=== PATIENT | female | born 1940 | race Caucasian/White ===

== ENCOUNTER → 2017-11-09 11:01 | Outpatient (CLI) | payer MEDICARE, SELFPAY ==
[2017-11-09 13:29] LABS: Protein, Urine (Random) 433.3 mg/dL (<11.9); Protein:Creat Ratio 4605 mg/g CRE (0-200)
== END ==
PROVIDERS: Family Provider Family Medicine; PCP Family Medicine; Visit Provider Internal Medicine Nephrology
DX: E11.22 Type 2 diabetes mellitus with diabetic chronic kidney disease (principal)
CPT/HCPCS: 82570; 84156

== ENCOUNTER → 2017-11-11 10:44 | Outpatient (CLI) | payer MEDICARE, SELFPAY ==
[2017-10-25 22:29] VITALS: BMI 26.5
--- NOTE | 2017-11-11 10:47 | US_ITS ---
US Kidney(s) complete (eg, kidneys T bladder) INDICATION: CKD stage 3 COMPARISON: CT April 2012 TECHNIQUE: Ultrasonographic grayscale and limited Doppler investigation of the retroperitoneum including kidneys and urinary bladder FINDINGS: The right kidney measures 10 x 4 x 5.4 cm with a cortical thickness of 1.6 cm. There is no evidence of hydronephrosis, cyst, or shadowing calculus. The left kidney measures 10.5 x 4.6 x 5.3 cm with a cortical thickness of 1.5 cm. There is no evidence of hydronephrosis, cyst, or shadowing calculus. Urinary bladder contains 24 mL at the time of the scan and appears otherwise unremarkable. US/Kidney and Bladder IMPRESSION: Negative renal ultrasound. at 0057 Reported and signed by: Niesha Lake MD Electronically Signed: Niesha Lake MD at 23:55 EST Tel , Service support ,
== END ==
PROVIDERS: Family Provider Family Medicine; PCP Family Medicine; Visit Provider Internal Medicine Nephrology
DX: N18.4 Chronic kidney disease, stage 4 (severe) (principal)
CPT/HCPCS: 76770

== ENCOUNTER → 2017-11-24 09:51 | Outpatient (CLI) | payer MEDICARE, SELFPAY ==
[2017-11-24 10:39] LABS: Hematocrit 35.1 % (37-47); Hemoglobin 11.6 g/dl (12.0-15.0); Mean Corpuscular Hgb 31.8 pg (27.0-32.0); Mean Corpuscular Volume 96.2 fL (81-99); Mean Platelet Vol. 9.7 fl (6.2-12.0); Platelet Count 273 K/mm3 (150-450); RBC Distribution Width CV 12.8 % (11.6-14.6); RBC Distribution Width SD 44.5 fl (35.1-43.9); Red Blood Count 3.65 M/mm3 (4.2-5.4); White Blood Count 7.5 K/mm3 (4.4-11.0)
[2017-11-24 10:51] LABS: Scan Indicated on CBC? Y/N NO
[2017-11-24 11:02] LABS: Albumin, Serum 3.3 g/dL (3.2-5.0); BUN 33 mg/dL (7-18); BUN/Creat Ratio 14.2 RATIO (10-20); Calcium,Total 8.7 mg/dL (8.5-10.1); Chloride 100 mmol/L (98-107); Creatinine, Serum 2.32 mg/dL (0.55-1.02); EST Glomerular Filtration Rate 22 mL/min (>60); Est Glom Filt Rate - Afr Amer 26 mL/min (>60); Glucose 168 mg/dL (74-106); Phosphorus 4.2 mg/dL (2.5-4.9); Potassium 4.3 mmol/L (3.5-5.1); Sodium Level 135 mmol/L (136-145); Uric Acid 8.7 mg/dL (2.6-6.0)
== END ==
PROVIDERS: Family Provider Family Medicine; PCP Family Medicine; Visit Provider Internal Medicine Nephrology
DX: N18.4 Chronic kidney disease, stage 4 (severe) (principal); E11.22 Type 2 diabetes mellitus with diabetic chronic kidney disease; R80.9 Proteinuria, unspecified; M10.9 Gout, unspecified
CPT/HCPCS: 36415; 80069; 83036; 84550; 85027; 86038; 86335

== ENCOUNTER → 2017-12-03 08:48 | Outpatient (CLI) | payer MEDICARE, SELFPAY ==
[2017-12-03 10:56] LABS: Anion Gap 11 (5-15); BUN 29 mg/dL (7-18); BUN/Creat Ratio 10.8 RATIO (10-20); Calcium,Total 8.7 mg/dL (8.5-10.1); Chloride 93 mmol/L (98-107); Creatinine, Serum 2.69 mg/dL (0.55-1.02); EST Glomerular Filtration Rate 18 mL/min (>60); Est Glom Filt Rate - Afr Amer 22 mL/min (>60); Glucose 410 mg/dL (74-106); Potassium 3.8 mmol/L (3.5-5.1); Sodium Level 131 mmol/L (136-145)
[2017-12-07 11:56] LABS: Anti-Nuclear Antibody Test Negative (.)
== END ==
PROVIDERS: Family Provider Family Medicine; PCP Family Medicine; Visit Provider Internal Medicine Nephrology
DX: N17.9 Acute kidney failure, unspecified (principal); N18.4 Chronic kidney disease, stage 4 (severe); E11.22 Type 2 diabetes mellitus with diabetic chronic kidney disease; R80.9 Proteinuria, unspecified; M10.9 Gout, unspecified
CPT/HCPCS: 36415; 80048; 86038

== ENCOUNTER 2017-12-05 22:11 | Emergency (ER) | payer MEDICARE, SELFPAY ==
[2017-12-05 22:15] VITALS: BP 221/106; PULSE 102; RESP 18; TEMP 37.1; O2SAT 97; BMI 25.3
[2017-12-05 22:36] LABS: Bedside Glucose > 500 mg/dL (70-110)
--- NOTE | 2017-12-05 22:39 | RAD_ITS ---
STUDY: X-RAY CHEST REASON FOR EXAM: Female, 77 years old. Hypertension TECHNIQUE: Frontal and lateral views of the chest. COMPARISON: 11/03/2013 FINDINGS: COPD without acute alveolar disease. There is no demonstrated pleural abnormality. Normal size heart. Normal mediastinum and will. Normal visualized pulmonary arteries. Normal visualized aortic arch and descending thoracic aorta. There are diffuse degenerative changes of the visualized thoracic spine. There is degenerative osteoarthritis of the bilateral shoulders. There is no demonstrated abnormality of the visualized soft tissue structures of the upper abdomen. RAD/Chest PA and Lateral IMPRESSION: COPD without acute alveolar disease. Electronically Signed: Иван Jarquin MD at 23:13 EST Tel , Service support ,
--- NOTE | 2017-12-05 22:44 | ED.VISSUMM ---
- ER Visit Summary Date of Service: 12/05/17 Chief Complaint: Blood sugar History of Present Illness: The patient is a 77 F who has a history of type 2 diabetes and chronic kidney disease, and due to worsening renal function, recently had her metformin switched to a new oral medication, and since then her blood sugars have been in the 500s, today they read high several times, and she felt like her blood pressure was high so she took it and her systolics were in the 180s, and 160s later. Here they are in the 200s. She states she knew her blood pressure was up because she felt like her heart was beating hard, although she was having no palpitations or racing or feelings of a dysrhythmia. She has had these symptoms in the past. Otherwise, her only other symptoms are some nausea off and on, polydipsia and polyuria, dry mouth, and she states she has a very mild sore throat because of her dry mouth. Physical Examination: Well-appearing in no acute distress. Blood pressure is in the 210 range, her other vital signs are normal. Lungs are clear to auscultation, heart is regular with no murmur. Abdomen soft nontender nondistended. No CVA tenderness. No JVD. No pedal edema or calf tenderness. Neck is supple. Alert and oriented ?3 with normal central and peripheral neurologic exams. Test Results: Stat blood sugar check is 598. Creatinine is 2.66, similar to a reading 2 days ago, with BUN in the 30s. Other than pseudohyponatremia due to her hyperglycemia, and glycosuria, her other labs and urinalysis are unremarkable. Chest x-ray shows COPD-like changes but otherwise nothing acute. Emergency Department Course and Treatment: Over several hours, patient was given 1 L of IV fluid and 1 dose of 14 units of fast acting subcutaneous insulin. Glucose was monitored as it gradually came down, at this time it is 265 and her blood pressure is 156 systolic. She feels better. I feel like she can be safely discharged home, advised to call her doctor tomorrow for medication/dosing recommendations, and she is following up with her emergency medicine nurse practitioner the day after tomorrow. She is comfortable with this plan. Treatment Plan: Continue medications as prescribed, calling her doctor tomorrow for further management of her medications Disposition: Discharge home Impression: Hyperglycemia due to type 2 diabetes and recent medication changes Chronic kidney disease Accelerated hypertension This note was generated with [employer] dictation software. It may contain incorrect words, spelling, and punctuation that were not noted in review of the chart prior to signing ED Disposition - Plan for ED Patient: Disposition: Home or Assisted Living Chief Complaint: Hyperglycemia Instructions: ED Hyperglycemia Diabetic Referrals: Taylor Alvarenga MD [Primary Care Provider] - (call Dr. Alvarenga and/or your Oxyacetylene Welder regarding medication management recommendations)
[2017-12-05 22:53] LABS: Absolute Lymphocyte Count 2.34 X10^3/ul (0.83-4.51); Absolute Neutrophil Count 4.6 X10^3/uL (2.0-7.7); Basophil# 0.02 X10^3/uL; Basophil% 0.3 % (0-1); Eosinophil# 0.11 X10^3/uL; Eosinophils% 1.4 % (0-5); Hematocrit 33.9 % (37-47); Hemoglobin 11.9 g/dl (12.0-15.0); Lymphocyte # 2.34 X10^3/ul (4.0); Lymphocyte % 30.5 % (19-41); Mean Corp Hgb Conc 35.1 g/gl (32-36); Mean Corpuscular Hgb 33.1 pg (27.0-32.0); Mean Corpuscular Volume 94.2 fL (81-99); Mean Platelet Vol. 10.2 fl (6.2-12.0); Monocyte# 0.56 X10^3/uL; Monocyte% 7.3 % (0-10); Neutrophil % 60.1 % (47-70); POSITIVE COUNT NO; POSITIVE DIFFERENTIAL NO; POSITIVE MORPHOLOGY NO; Platelet Count 201 K/mm3 (150-450); RBC Distribution Width CV 12.2 % (11.6-14.6); RBC Distribution Width SD 40.9 fl (35.1-43.9); White Blood Count 7.7 K/mm3 (4.4-11.0)
[2017-12-05] MEDS: Ondansetron 4 MG/2 ML Vial IV (23:06)
[2017-12-05 23:13] VITALS: BP 210/93; PULSE 95; RESP 16; O2SAT 96
[2017-12-05 23:14] LABS: Anion Gap 15 (5-15); BUN 35 mg/dL (7-18); BUN/Creat Ratio 13.2 RATIO (10-20); Calcium,Total 8.9 mg/dL (8.5-10.1); Chloride 90 mmol/L (98-107); Creatinine, Serum 2.66 mg/dL (0.55-1.02); EST Glomerular Filtration Rate 19 mL/min (>60); Est Glom Filt Rate - Afr Amer 22 mL/min (>60); Estimated Creatinine Clearance 14.45 ml/min; Glucose 559 mg/dL (74-106); Sodium Level 129 mmol/L (136-145)
--- NOTE | 2017-12-05 23:15 | ED.DCSUM_ITS ---
- ER Visit Summary Date of Service: 12/05/17 Chief Complaint: Blood sugar History of Present Illness: The patient is a 77 F who has a history of type 2 diabetes and chronic kidney disease, and due to worsening renal function, recently had her metformin switched to a new oral medication, and since then her blood sugars have been in the 500s, today they read high several times, and she felt like her blood pressure was high so she took it and her systolics were in the 180s, and 160s later. Here they are in the 200s. She states she knew her blood pressure was up because she felt like her heart was beating hard , although she was having no palpitations or racing or feelings of a dysrhythmia. She has had these symptoms in the past. Otherwise, her only other symptoms are some nausea off and on, polydipsia and polyuria, dry mouth, and she states she has a very mild sore throat because of her dry mouth. Physical Examination: Well-appearing in no acute distress. Blood pressure is in the 210 range, her other vital signs are normal. Lungs are clear to auscultation, heart is regular with no murmur. Abdomen soft nontender nondistended. No CVA tenderness. No JVD. No pedal edema or calf tenderness. Neck is supple. Alert and oriented ?3 with normal central and peripheral neurologic exams. Test Results: Stat blood sugar check is 598. Creatinine is 2.66, similar to a reading 2 days ago, with BUN in the 30s. Other than pseudohyponatremia due to her hyperglycemia, and glycosuria, her other labs and urinalysis are unremarkable. Chest x-ray shows COPD-like changes but otherwise nothing acute. Emergency Department Course and Treatment: Over several hours, patient was given 1 L of IV fluid and 1 dose of 14 units of fast acting subcutaneous insulin. Glucose was monitored as it gradually came down, at this time it is 265 and her blood pressure is 156 systolic. She feels better. I feel like she can be safely discharged home, advised to call her doctor tomorrow for medication/dosing recommendations, and she is following up with her lead sql developer the day after tomorrow. She is comfortable with this plan. Treatment Plan: Continue medications as prescribed, calling her doctor tomorrow for further management of her medications Disposition: Discharge home Impression: Hyperglycemia due to type 2 diabetes and recent medication changes Chronic kidney disease Accelerated hypertension This note was generated with [employer] dictation software. It may contain incorrect words, spelling, and punctuation that were not noted in review of the chart prior to signing ED Disposition - Plan for ED Patient: Disposition: Home or Assisted Living Chief Complaint: Hyperglycemia Instructions: ED Hyperglycemia Diabetic Referrals: Taylro Alvarenga MD [Primary Care Provider] - (call Dr. Alvarenga and/or your Health Information Technologist regarding medication management recommendations)
[2017-12-05 23:20] LABS: Bacteria 0 SEEN /hpf (None Seen); Mucous, Urine 0 SEEN /hpf (<or=2+); Red Blood Cells-Urine 0 SEEN /hpf (0-5); Squamous Epithelial Cells - UA 0 SEEN /hpf (5-10); White Blood Cells 0 SEEN /hpf (0-5)
[2017-12-05 23:23] LABS: Color, Urine Yellow (Yellow); Glucose, Dipstick 1000 mg/dl (Normal); Ketone-Dipstick Negative (Negative); Leukocyte Esterase-Dipstick 25 /ul (Negative); Nitrite-Dipstick Negative (Negative); Occult Blood-Urine Negative /ul (Negative); Protein-Dipstick 100 mg/dl (Negative); Urine Bilirubin Dipstick Negative (Negative); Urine Clarity Clear (Clear); Urine Urobilinogen Normal (Normal); Urine pH 6.5 (5.0 - 8.0)
[2017-12-05 23:56] VITALS: BP 189/96; PULSE 95; RESP 16; O2SAT 96
[2017-12-06 00:31] LABS: Bedside Glucose 351 mg/dL (70-110)
[2017-12-06 01:26] VITALS: BP 179/99; PULSE 90; RESP 14; O2SAT 95
[2017-12-06 01:36] LABS: Bedside Glucose 265 mg/dL (70-110)
[2017-12-06 01:42] VITALS: BP 156/87; PULSE 94; RESP 15; O2SAT 96
== END 2017-12-06 02:07 | disposition home or self-care (01) ==
PROVIDERS: Emergency Provider Emergency Medicine; Family Provider Family Medicine; PCP Family Medicine
DX: E11.65 Type 2 diabetes mellitus with hyperglycemia (principal); I12.9 Hypertensive chronic kidney disease with stage 1 through stage 4 chronic kidney disease, or unspecified chronic kidney disease; N18.9 Chronic kidney disease, unspecified; J02.9 Acute pharyngitis, unspecified
CPT/HCPCS: 71046; 80048; 81001; 82962; 84484; 85025; 96374; 96375; 99284; J7040; J2405

== ENCOUNTER 2017-12-07 16:11 | Emergency (ER) | payer MEDICARE, SELFPAY ==
[2017-12-07 16:12] VITALS: BP 151/88; PULSE 113; RESP 16; TEMP 36.6; O2SAT 99; BMI 26.2
[2017-12-07 17:11] LABS: Bedside Glucose 322 mg/dL (70-110)
--- NOTE | 2017-12-07 17:35 | ED.DCSUM_ITS ---
- ER Visit Summary Date of Service: 12/07/17 Chief Complaint: Elevated blood sugar with a history of insulin-dependent diabetes. History of Present Illness: The patient is a 77 F history of diabetes was just started on insulin 2 days ago. She was in the ER recently for elevated blood sugars also. She denies any nausea, vomiting or diarrhea. She denies any fever or dysuria. She has been feeling well other than her blood sugars have been elevated recently. Physical Examination: Elderly female no acute distress. Vital signs are stable afebrile. Pulse ox 98% on room air. Hypoxia. HEENT exam unremarkable atraumatic. Neck nontender. Lungs clear to auscultation bilaterally. Heart regular rate and rhythm no murmur. Abdomen is soft nontender. Normal bowel sounds no peritoneal signs. Moving all 4 extremities. Neurologically she has no motor deficits. No sensory deficits. Awake alert and talking normally. She has no focal motor or sensory deficits. Test Results: CBC shows a white count of 15,100. She has no complaints of any infectious etiology. H&H 12 and 35. Electrolytes sodium 131. Initial glucose was 314. Anion gap 11. She has known renal insufficiency her creatinine is 2 4 and has had creatinines as high as 2.6 before. Serum ketones are negative. Repeat BG T at 8 PM was 201. Emergency Department Course and Treatment: A female insulin-dependent diabetic with high blood sugar. Screening labs be obtained along with being given a liter of normal saline. Treatment Plan: Repeat exam patient is doing well at 2145. She has no complaints. She feels comfortable being discharged home. She will follow-up with her primary care physician Dr. Alvarenga and she needs diabetic teaching. Disposition: Discharge Impression: Acute hyperglycemia History of insulin-dependent diabetes Chronic renal insufficiency. This note was generated with [employer] dictation software. It may contain incorrect words, spelling, and punctuation that were not noted in review of the chart prior to signing ED Disposition - Plan for ED Patient: Chief Complaint: Hyperglycemia Referrals: Taylor Alvarenga MD [Primary Care Provider] -
[2017-12-07] MEDS: 0.9% Normal Saline 1,000 ML 999 ML IV (17:48)
[2017-12-07 17:55] LABS: Absolute Lymphocyte Count 2.89 X10^3/ul (0.83-4.51); Absolute Neutrophil Count 11.5 X10^3/uL (2.0-7.7); Basophil# 0.02 X10^3/uL; Basophil% 0.1 % (0-1); Eosinophil# 0.04 X10^3/uL; Eosinophils% 0.3 % (0-5); Hematocrit 35.7 % (37-47); Hemoglobin 12.1 g/dl (12.0-15.0); Lymphocyte # 2.89 X10^3/ul (4.0); Lymphocyte % 19.1 % (19-41); Mean Corp Hgb Conc 33.9 g/gl (32-36); Mean Corpuscular Volume 94.4 fL (81-99); Mean Platelet Vol. 10.1 fl (6.2-12.0); Monocyte# 0.69 X10^3/uL; Monocyte% 4.6 % (0-10); Neutrophil # 11.46 X10^3/uL (2.7-7.7); Neutrophil % 75.7 % (47-70); Platelet Count 218 K/mm3 (150-450); RBC Distribution Width CV 12.6 % (11.6-14.6); RBC Distribution Width SD 43.1 fl (35.1-43.9); Red Blood Count 3.78 M/mm3 (4.2-5.4); White Blood Count 15.1 K/mm3 (4.4-11.0)
[2017-12-07 17:57] LABS: POSITIVE COUNT NO; POSITIVE DIFFERENTIAL NO; POSITIVE MORPHOLOGY NO
[2017-12-07 18:31] VITALS: BP 178/81; PULSE 97; RESP 18; O2SAT 98
[2017-12-07 18:34] LABS: Anion Gap 11 (5-15); BUN 35 mg/dL (7-18); BUN/Creat Ratio 12.3 RATIO (10-20); Chloride 96 mmol/L (98-107); Creatinine, Serum 2.84 mg/dL (0.55-1.02); EST Glomerular Filtration Rate 17 mL/min (>60); Est Glom Filt Rate - Afr Amer 21 mL/min (>60); Estimated Creatinine Clearance 13.54 ml/min; Glucose 314 mg/dL (74-106); Potassium 3.8 mmol/L (3.5-5.1); Sodium Level 131 mmol/L (136-145)
[2017-12-07 20:05] LABS: Bedside Glucose 201 mg/dL (70-110)
[2017-12-07 20:36] VITALS: BP 187/82; PULSE 100; RESP 17; O2SAT 97
[2017-12-07 21:44] VITALS: BP 187/92; PULSE 99; RESP 18; O2SAT 98
--- NOTE | 2017-12-07 21:47 | ED.DEP ---
ED Disposition - Plan for ED Patient: Disposition: Home or Assisted Living Chief Complaint: Hyperglycemia Instructions: ED Hyperglycemia Diabetic Referrals: Taylor Alvarenga MD [Primary Care Provider] - As soon as possible Additional Instructions: Watch blood sugars closely. Recheck a blood sugar prior to bedtime tonight. I would take an log your blood sugars before every meal and at bedtime. I would show those readings to Dr. Alvarenga the next time you are at the office. You should follow-up in the next several days. You need discussed with Dr. Alvarenga about being referred for diabetic teaching. Return to ER if you are feeling worse.
== END 2017-12-07 21:51 | disposition home or self-care (01) ==
PROVIDERS: Emergency Provider Emergency Medicine; Family Provider Family Medicine; PCP Family Medicine
DX: E11.65 Type 2 diabetes mellitus with hyperglycemia (principal); Z79.4 Long term (current) use of insulin; I12.9 Hypertensive chronic kidney disease with stage 1 through stage 4 chronic kidney disease, or unspecified chronic kidney disease; N18.9 Chronic kidney disease, unspecified
CPT/HCPCS: 80048; 82009; 82962; 85025; 99284

== ENCOUNTER → 2017-12-20 08:55 | Outpatient (CLI) | payer MEDICARE, SELFPAY ==
[2017-12-20 10:16] LABS: Anion Gap 9 (5-15); BUN 23 mg/dL (7-18); BUN/Creat Ratio 10.4 RATIO (10-20); Calcium,Total 8.4 mg/dL (8.5-10.1); Chloride 103 mmol/L (98-107); Creatinine, Serum 2.21 mg/dL (0.55-1.02); EST Glomerular Filtration Rate 23 mL/min (>60); Est Glom Filt Rate - Afr Amer 28 mL/min (>60); Glucose 271 mg/dL (74-106); Potassium 4.4 mmol/L (3.5-5.1); Sodium Level 137 mmol/L (136-145)
== END ==
PROVIDERS: Family Provider Family Medicine; PCP Family Medicine; Visit Provider Internal Medicine Nephrology
DX: N17.9 Acute kidney failure, unspecified (principal)
CPT/HCPCS: 36415; 80048

== ENCOUNTER 2018-01-26 14:00 | Outpatient (RCR) | payer MEDICARE, SELFPAY | END 2018-01-31 23:59 | LOC: DC 14:00 | PROVIDERS: Family Provider Family Medicine; PCP Family Medicine; Visit Provider Internal Medicine Nephrology | DX: E11.22 Type 2 diabetes mellitus with diabetic chronic kidney disease (principal); I10 Essential (primary) hypertension; N18.4 Chronic kidney disease, stage 4 (severe); N25.81 Secondary hyperparathyroidism of renal origin; D63.1 Anemia in chronic kidney disease; M10.9 Gout, unspecified; Z71.3 Dietary counseling and surveillance | CPT/HCPCS: 97802; G0108 ==

== ENCOUNTER 2018-02-15 16:05 | Outpatient (RCR) | payer MEDICARE, SELFPAY | END 2018-03-03 23:59 | LOC: DC 16:05 | PROVIDERS: Family Provider Family Medicine; PCP Family Medicine; Visit Provider Internal Medicine Nephrology | DX: E11.22 Type 2 diabetes mellitus with diabetic chronic kidney disease (principal); I10 Essential (primary) hypertension; N18.4 Chronic kidney disease, stage 4 (severe); N25.81 Secondary hyperparathyroidism of renal origin; D63.1 Anemia in chronic kidney disease; M10.9 Gout, unspecified; Z71.3 Dietary counseling and surveillance | CPT/HCPCS: 97803 ==

== ENCOUNTER → 2018-03-23 09:45 | Outpatient (CLI) | payer MEDICARE, SELFPAY ==
[2018-03-23 12:51] LABS: Hematocrit 31.2 % (37-47); Hemoglobin 10.2 g/dl (12.0-15.0); Mean Corp Hgb Conc 32.7 g/gl (32-36); Mean Corpuscular Hgb 33.7 pg (27.0-32.0); Mean Platelet Vol. 10.8 fl (6.2-12.0); Platelet Count 179 K/mm3 (150-450); RBC Distribution Width CV 13.3 % (11.6-14.6); RBC Distribution Width SD 48.7 fl (35.1-43.9); Red Blood Count 3.03 M/mm3 (4.2-5.4); Scan Indicated on CBC? Y/N NO; White Blood Count 6.3 K/mm3 (4.4-11.0)
[2018-03-23 13:07] LABS: Albumin, Serum 3.1 g/dL (3.2-5.0); BUN 53 mg/dL (7-18); BUN/Creat Ratio 19.6 RATIO (10-20); Calcium,Total 8.5 mg/dL (8.5-10.1); Chloride 108 mmol/L (98-107); EST Glomerular Filtration Rate 18 mL/min (>60); Est Glom Filt Rate - Afr Amer 22 mL/min (>60); Ferritin 181 ng/mL (8-252); Glucose 210 mg/dL (74-106); Iron 110 ug/dL (50-170); Iron Binding Capacity,Total 335 ug/dL (250-450); Potassium 4.4 mmol/L (3.5-5.1); Sodium Level 136 mmol/L (136-145); Uric Acid 7.4 mg/dL (2.6-6.0)
[2018-03-23 13:15] LABS: PTHIN 85.5 pg/mL (18.4-80.1); Vitamin D,25 Hydroxy 19.5 ng/mL (29.95-100.01)
[2018-03-23 13:30] LABS: Protein, Urine (Random) 276.9 mg/dL (<11.9); Protein:Creat Ratio 2808 mg/g CRE (0-200)
== END ==
PROVIDERS: Family Provider Family Medicine; PCP Family Medicine; Visit Provider Internal Medicine Nephrology
DX: N18.4 Chronic kidney disease, stage 4 (severe) (principal); M10.9 Gout, unspecified; E11.22 Type 2 diabetes mellitus with diabetic chronic kidney disease; D63.1 Anemia in chronic kidney disease
CPT/HCPCS: 36415; 80069; 82306; 82570; 82728; 83540; 83550; 83970; 84156; 84550; 85027

== ENCOUNTER 2018-03-24 15:00 | Outpatient (RCR) | payer MEDICARE, SELFPAY | END 2018-04-02 23:59 | LOC: DC 15:00 | PROVIDERS: Family Provider Family Medicine; PCP Family Medicine; Visit Provider Internal Medicine Nephrology | DX: E11.22 Type 2 diabetes mellitus with diabetic chronic kidney disease (principal); I10 Essential (primary) hypertension; N18.4 Chronic kidney disease, stage 4 (severe); N25.81 Secondary hyperparathyroidism of renal origin; D63.1 Anemia in chronic kidney disease; M10.9 Gout, unspecified; Z71.3 Dietary counseling and surveillance | CPT/HCPCS: 97803; G0109 ==

== ENCOUNTER 2018-04-13 15:57 | Outpatient (RCR) | payer MEDICARE, SELFPAY | END 2018-05-03 23:59 | LOC: DC 15:57 | PROVIDERS: Family Provider Family Medicine; PCP Family Medicine; Visit Provider Internal Medicine Nephrology | DX: E11.22 Type 2 diabetes mellitus with diabetic chronic kidney disease (principal); N25.81 Secondary hyperparathyroidism of renal origin; D63.1 Anemia in chronic kidney disease; M10.9 Gout, unspecified; I12.9 Hypertensive chronic kidney disease with stage 1 through stage 4 chronic kidney disease, or unspecified chronic kidney disease; N18.4 Chronic kidney disease, stage 4 (severe); Z71.3 Dietary counseling and surveillance | CPT/HCPCS: G0109 ==

== ENCOUNTER 2018-05-05 17:04 | Outpatient (RCR) | payer MEDICARE, SELFPAY | END 2018-06-03 23:59 | LOC: DC 17:04 | PROVIDERS: Family Provider Family Medicine; PCP Family Medicine; Visit Provider Internal Medicine Nephrology | DX: E11.22 Type 2 diabetes mellitus with diabetic chronic kidney disease (principal); N25.81 Secondary hyperparathyroidism of renal origin; D63.1 Anemia in chronic kidney disease; M10.9 Gout, unspecified; I12.9 Hypertensive chronic kidney disease with stage 1 through stage 4 chronic kidney disease, or unspecified chronic kidney disease; N18.4 Chronic kidney disease, stage 4 (severe); Z71.3 Dietary counseling and surveillance ==

== ENCOUNTER → 2018-05-20 12:38 | Outpatient (CLI) | payer MEDICARE, SELFPAY ==
[2018-05-20 13:01] LABS: Hematocrit 32.7 % (37-47); Hemoglobin 10.7 g/dl (12.0-15.0); Mean Corp Hgb Conc 32.7 g/gl (32-36); Mean Corpuscular Hgb 32.7 pg (27.0-32.0); Mean Platelet Vol. 10.3 fl (6.2-12.0); Platelet Count 239 K/mm3 (150-450); RBC Distribution Width CV 13.3 % (11.6-14.6); RBC Distribution Width SD 48.5 fl (35.1-43.9); Red Blood Count 3.27 M/mm3 (4.2-5.4); Scan Indicated on CBC? Y/N NO; White Blood Count 10.5 K/mm3 (4.4-11.0)
[2018-05-20 14:07] LABS: Albumin, Serum 2.6 g/dL (3.2-5.0); BUN 46 mg/dL (7-18); BUN/Creat Ratio 19.5 RATIO (10-20); Calcium,Total 7.8 mg/dL (8.5-10.1); Chloride 96 mmol/L (98-107); Creatinine, Serum 2.36 mg/dL (0.55-1.02); EST Glomerular Filtration Rate 21 mL/min (>60); Est Glom Filt Rate - Afr Amer 26 mL/min (>60); Glucose 156 mg/dL (74-106); Phosphorus 4.6 mg/dL (2.5-4.9); Potassium 4.6 mmol/L (3.5-5.1); Sodium Level 125 mmol/L (136-145)
[2018-05-20 14:10] LABS: PTHIN 180.7 pg/mL (18.4-80.1)
== END ==
PROVIDERS: Family Provider Family Medicine; PCP Family Medicine; Visit Provider Internal Medicine Nephrology
DX: N18.4 Chronic kidney disease, stage 4 (severe) (principal); E87.1 Hypo-osmolality and hyponatremia
CPT/HCPCS: 36415; 80069; 83970; 85027

== ENCOUNTER → 2018-05-23 16:37 | Outpatient (CLI) | payer MEDICARE, SELFPAY ==
[2018-05-23 17:56] LABS: Absolute Lymphocyte Count 1.97 X10^3/ul (0.83-4.51); Absolute Neutrophil Count 7.4 X10^3/uL (2.0-7.7); Basophil# 0.03 X10^3/uL; Basophil% 0.3 % (0-1); Eosinophil# 0.09 X10^3/uL; Eosinophils% 0.8 % (0-5); Hematocrit 33.5 % (37-47); Hemoglobin 11.2 g/dl (12.0-15.0); Lymphocyte # 1.97 X10^3/ul (4.0); Lymphocyte % 18.4 % (19-41); Mean Corp Hgb Conc 33.4 g/gl (32-36); Mean Corpuscular Hgb 32.9 pg (27.0-32.0); Mean Corpuscular Volume 98.5 fL (81-99); Mean Platelet Vol. 10.7 fl (6.2-12.0); Monocyte# 1.14 X10^3/uL; Monocyte% 10.7 % (0-10); Neutrophil # 7.44 X10^3/uL (2.7-7.7); Neutrophil % 69.6 % (47-70); Platelet Count 280 K/mm3 (150-450); RBC Distribution Width CV 13.4 % (11.6-14.6); White Blood Count 10.7 K/mm3 (4.4-11.0)
[2018-05-23 18:05] LABS: POSITIVE COUNT NO; POSITIVE DIFFERENTIAL NO; POSITIVE MORPHOLOGY NO
[2018-05-23 18:17] LABS: Amylase 76 U/L (25-115); Lipase 785 U/L (73-393)
[2018-05-25 14:57] LABS: Potassium 5.2 mmol/L (3.5-5.1)
== END ==
PROVIDERS: Family Provider Family Medicine; PCP Family Medicine; Visit Provider Family Medicine
DX: R10.84 Generalized abdominal pain (principal)
CPT/HCPCS: 36415; 82150; 83690; 84132; 85025

== ENCOUNTER → 2018-05-24 08:13 | Outpatient (CLI) | payer MEDICARE, SELFPAY | PROVIDERS: Family Provider Family Medicine; PCP Family Medicine; Visit Provider Family Medicine | DX: R10.84 Generalized abdominal pain (principal) | CPT/HCPCS: 76705 ==

== ENCOUNTER 2018-05-26 10:40 | Inpatient (IN) | payer MEDICARE, SELFPAY ==
[2018-05-26 11:12] VITALS: BP 157/54; PULSE 64; RESP 18; TEMP 36.4; O2SAT 100; BMI 29.0
[2018-05-26] MEDS: 0.9% Normal Saline 1,000 ML 100 ML IV (11:54)
[2018-05-26] MEDS: 0.9% NaCl Peripheral Flush Adult/Peds IV (11:56)
[2018-05-26 11:58] VITALS: PULSE 80
[2018-05-26 12:15] LABS: Bedside Glucose 205 mg/dL (70-110)
[2018-05-26 13:28] LABS: Hemoglobin A1c 6.2 % (4.2-6.3)
--- NOTE | 2018-05-26 14:04 | PCM.PN.HOSP ---
Subjective: 78-year-old female with past medical history of hypertension, type II DM on insulin, complicated with proteinuria, CKD stage IV follows up with nephrology, Dr. Pearson in the outpatient comes in with a three-week complained of right upper quadrant pain that goes across the upper abdomen. Patient has been admitted under the surgical service for possible laparoscopic cholecystectomy tomorrow. We have been consulted for medical management. Patient complains of pain in the right upper quadrant that is worse with food and has no relieving factors. Denies any fever but has chills denies any dizziness or palpitations or shortness of breath. No constipation noted On review of her chart, patient is noted to have chronic hyponatremia, last Na was 125, CO2 19, BUN 46, Cr 2.36. Her abdominal ultrasound done on 11/04/2017 showed multiple gallstones with gallbladder thickening and mild pericholecystic cystic fluid. Her liver was reported normal as well as her pancreas. Admitting blood work today showed a RBC count of 9.6, hemoglobin 10.6, platelet 216, sodium 122, potassium 5.0, bicarbonate 95, BUN 49, creatinine 2.32, bicarbonate 17, AST of 31, ALT 148, ALP of 310 Vitals/I&O's: Vital Signs Temp Pulse Resp BP Pulse Ox 97.5 F L 80 18 157/54 H 100 05/26/18 11:12 05/26/18 11:58 05/26/18 11:12 05/26/18 11:12 05/26/18 11:12 Oxygen Delivery Method Room Air Weight: 73.799 kg Body Mass Index (BMI) 29.0 Finger Stick Blood Glucose 322 General: Alert, Oriented x3, Cooperative HEENT: Atraumatic, PERRLA, EOMI, Normocephalic Oral: Moist Mucosa Neck: Supple, No JVD, Negative Carotid Bruits Lungs: Clear to auscultation, Normal air movement Cardiovascular: Regular rate, Regular Rhythm, Normal S1, Normal S2, No murmurs Abdomen: Bowel Sounds Present, Soft, Tender - in the RUQ and upper abdomen without guarding or RBT, BS present Extremities: No edema Skin: No rashes Musculoskeletal: No Tenderness to Palpation of Joints or Extremities Lymphatic: No Cervical, Supraclavicular, or Inguinal Adenopathy Neurological: Cranial nerves II-XII grossly intact, Neuro grossly intact Psych/Mental Status: Normal Affect, Appropriate Laboratory Results 05/26/18 12:08: POC Glucose 205 H 05/26/18 13:00: Hemoglobin A1c 6.2 Current Medications Acetaminophen (Tylenol) 650 mg PO Q6H PRN PRN PRN Reason: PAIN Amlodipine Besylate (Norvasc) 5 mg PO DAILY [facility] Atenolol (Tenormin (Beta Elvia)) 100 mg PO DAILY [facility] Hydrochlorothiazide (Hctz) 25 mg PO DAILY [facility] Sodium Chloride () 1,000 mls @ 100 mls/hr IV .Q10H [facility] Last Admin: 05/26/18 11:54 Dose: 100 mls/hr Lisinopril (Zestril) 40 mg PO DAILY [facility] Magnesium Oxide (Mag-Ox 400) 400 mg PO DAILY [facility] Sodium Chloride () 5 - 30 ml IV UD PRN PRN Reason: SALINE FLUSH Last Admin: 05/26/18 11:56 Dose: 10 ml Medical Necessity - Tobacco Use Smoking Status: Never smoker Assessment/Plan 78-year-old female with past medical history of hypertension, type II DM on insulin, complicated with proteinuria, CKD stage IV follows up with nephrology, Dr. Pearson in the outpatient comes in with a three-week complained of right upper quadrant pain that goes across the upper abdomen. 1. Right upper quadrant pain secondary to acute cholelithiasis, less likely from acute cholecystitis, seen on ultrasound of the abdomen No fever or leukocytosis seen. Patient is admitted for possible laparoscopic cholecystectomy tomorrow, kept n.p.o., on IV fluids, being managed by general surgery will defer to the management 2. Elevated liver function test, likely secondary to cholelithiasis, multiple gallstones and gallbladder, CBD looked okay as well as the liver from ultrasound Will trend and repeat blood work in a.m. 3. Elevated lipase likely related to cholelithiasis, questionable acute cholecystitis, less likely from acute pancreatitis, pancreas looked normal from the abdominal ultrasound done on 05/24/2018, will continue to monitor, defer further management to general surgery 4. Acute on chronic hyponatremia, likely diuretic induced, will check urine sodium, serum osmolarity, stop hydrochlorothiazide, repeat BMP in 4 hours, ending a.m. 5. Non-anion gap metabolic acidosis, slight elevation in potassium, was previously elevated in the outpatient, patient is on lisinopril 40 mg for proteinuria, will decrease lisinopril to 20 mg daily, continue to monitor 6. Type II DM, on insulin, patient kept n.p.o., will withhold long-acting insulins and keep on insulin sliding scale with Accu-Cheks for now 7. Hypertension, controlled, continue home medication, hydrochlorothiazide on hold, lisinopril decrease, will add as needed hydralazine for systolic blood pressure more than 160 8. CKD stage IV, follows nephrology in the outpatient, will consult nephrology to [facility]. 9. History of gout, on allopurinol 10. DVT Ppx- Per primary service Code Visit Inpatient E&M: 73016 Subs Hosp L2
[2018-05-26 14:25] LABS: Absolute Lymphocyte Count 1.68 X10^3/ul (0.83-4.51); Absolute Neutrophil Count 7.1 X10^3/uL (2.0-7.7); Basophil# 0.03 X10^3/uL; Basophil% 0.3 % (0-1); Eosinophil# 0.07 X10^3/uL; Eosinophils% 0.7 % (0-5); Hematocrit 31.2 % (37-47); Hemoglobin 10.6 g/dl (12.0-15.0); Lymphocyte # 1.68 X10^3/ul (4.0); Lymphocyte % 17.6 % (19-41); Mean Corpuscular Hgb 33.2 pg (27.0-32.0); Mean Corpuscular Volume 97.8 fL (81-99); Mean Platelet Vol. 10.7 fl (6.2-12.0); Monocyte% 7.3 % (0-10); Neutrophil # 7.05 X10^3/uL (2.7-7.7); Neutrophil % 73.9 % (47-70); POSITIVE COUNT NO; POSITIVE DIFFERENTIAL NO; POSITIVE MORPHOLOGY NO; Platelet Count 216 K/mm3 (150-450); RBC Distribution Width CV 13.4 % (11.6-14.6); RBC Distribution Width SD 47.8 fl (35.1-43.9); Red Blood Count 3.19 M/mm3 (4.2-5.4); White Blood Count 9.6 K/mm3 (4.4-11.0)
[2018-05-26 14:36] LABS: AST(SGOT) 331 U/L (15-37); Alanine Aminotransfer ALT/SGPT 148 U/L (13-56); Albumin, Serum 2.6 g/dL (3.2-5.0); Alkaline Phosphatase 310 U/L (45-117); Anion Gap 10 (5-15); BUN 49 mg/dL (7-18); BUN/Creat Ratio 21.1 RATIO (10-20); Bilirubin, Direct 0.68 mg/dL (0.00-0.30); Calcium,Total 7.8 mg/dL (8.5-10.1); Chloride 95 mmol/L (98-107); Creatinine, Serum 2.32 mg/dL (0.55-1.02); EST Glomerular Filtration Rate 22 mL/min (>60); Est Glom Filt Rate - Afr Amer 26 mL/min (>60); Estimated Creatinine Clearance 16.32 ml/min; Globulin 4.1 g/dL (2.2-4.2); Glucose 159 mg/dL (74-106); Lipase 829 U/L (73-393); Protein, Total 6.7 g/dL (6.4-8.2); Sodium Level 122 mmol/L (136-145)
[2018-05-26 15:51] VITALS: BP 136/63; PULSE 63; RESP 18; TEMP 37; O2SAT 97
[2018-05-26] MEDS: Dextrose 50%-Water 25 GM/50 ML DISP.SYRIN IV ×2 (16:20→21:34)
--- NOTE | 2018-05-26 16:24 | NURSING ---
pt is awake and able to verbalize feelings, is not clammy or diaphoretic. Since she is npo dextrose was given.
[2018-05-26] MEDS: Dextrose 5%/0.9% NaCl 1,000 ML 75 ML IV (16:30)
[2018-05-26 17:08] LABS: Urine Sodium 50 mmol/L (Not Establ.)
[2018-05-26 17:21] LABS: Bedside Glucose 196 mg/dL (70-110)
[2018-05-26 17:21] LABS: Bedside Glucose 64 mg/dL (70-110)
[2018-05-26 18:02] LABS: Osmolality, Serum 275 mOsm/KG (280-301)
[2018-05-26 18:21] LABS: Anion Gap 16 (5-15); BUN 51 mg/dL (7-18); BUN/Creat Ratio 22.9 RATIO (10-20); Calcium,Total 7.7 mg/dL (8.5-10.1); Chloride 96 mmol/L (98-107); Creatinine, Serum 2.23 mg/dL (0.55-1.02); EST Glomerular Filtration Rate 23 mL/min (>60); Est Glom Filt Rate - Afr Amer 28 mL/min (>60); Estimated Creatinine Clearance 16.97 ml/min; Glucose 167 mg/dL (74-106); Iron 69 ug/dL (50-170); Iron Binding Capacity,Total 306 ug/dL (250-450); PERCENT IRON SATURATION 22.5 % (15.0-55.0); Potassium 4.7 mmol/L (3.5-5.1); Sodium Level 127 mmol/L (136-145)
[2018-05-26 19:02] VITALS: BP 156/69; PULSE 70; RESP 18; TEMP 36.8; O2SAT 95
[2018-05-26 20:19] VITALS: BP 146/65; PULSE 66; RESP 16; RESP 18; TEMP 37.2; O2SAT 97
[2018-05-26] MEDS: Acetaminophen 325 MG Tablet 650 MG PO (20:39)
--- NOTE | 2018-05-26 21:35 | NURSING ---
Patient BG is 69, patient is still NPO, D50 12.5g given, will recheck BG.
[2018-05-26 22:11] LABS: Bedside Glucose 69 mg/dL (70-110)
[2018-05-26 22:31] LABS: Bedside Glucose 109 mg/dL (70-110)
[2018-05-27] VITALS (11 sets, daily range): BP systolic 125–157; BP diastolic 48–66; PULSE 63–97; RESP 16–20; TEMP 36.4–37; O2SAT 93–100; BMI 29.0
[2018-05-27] MEDS: Dextrose 50%-Water 25 GM/50 ML DISP.SYRIN IV (02:42)
[2018-05-27 02:51] LABS: Bedside Glucose 56 mg/dL (70-110)
[2018-05-27 03:26] LABS: Bedside Glucose 116 mg/dL (70-110)
[2018-05-27] MEDS: Dextrose 10%-Water 250 ML 40 ML IV (04:01)
[2018-05-27 05:16] LABS: Bedside Glucose 82 mg/dL (70-110)
[2018-05-27 06:05] LABS: Bedside Glucose 88 mg/dL (70-110)
[2018-05-27 06:28] LABS: Absolute Lymphocyte Count 2.19 X10^3/ul (0.83-4.51); Absolute Neutrophil Count 5.9 X10^3/uL (2.0-7.7); Basophil# 0.04 X10^3/uL; Basophil% 0.4 % (0-1); Eosinophil# 0.13 X10^3/uL; Eosinophils% 1.4 % (0-5); Hematocrit 29.8 % (37-47); Lymphocyte # 2.19 X10^3/ul (4.0); Lymphocyte % 24.1 % (19-41); Mean Corp Hgb Conc 33.6 g/gl (32-36); Mean Corpuscular Volume 98.3 fL (81-99); Monocyte# 0.81 X10^3/uL; Monocyte% 8.9 % (0-10); Neutrophil # 5.91 X10^3/uL (2.7-7.7); Neutrophil % 65.1 % (47-70); Platelet Count 212 K/mm3 (150-450); RBC Distribution Width CV 13.6 % (11.6-14.6); RBC Distribution Width SD 48.9 fl (35.1-43.9); Red Blood Count 3.03 M/mm3 (4.2-5.4); White Blood Count 9.1 K/mm3 (4.4-11.0)
[2018-05-27 06:39] LABS: POSITIVE COUNT NO; POSITIVE DIFFERENTIAL NO; POSITIVE MORPHOLOGY NO
[2018-05-27 06:55] LABS: AST(SGOT) 311 U/L (15-37); Alanine Aminotransfer ALT/SGPT 136 U/L (13-56); Albumin, Serum 2.3 g/dL (3.2-5.0); Alkaline Phosphatase 255 U/L (45-117); Anion Gap 15 (5-15); BUN 47 mg/dL (7-18); BUN/Creat Ratio 19.1 RATIO (10-20); Bilirubin, Direct 0.58 mg/dL (0.00-0.30); Calcium,Total 7.9 mg/dL (8.5-10.1); Chloride 100 mmol/L (98-107); Creatinine, Serum 2.46 mg/dL (0.55-1.02); EST Glomerular Filtration Rate 20 mL/min (>60); Est Glom Filt Rate - Afr Amer 25 mL/min (>60); Estimated Creatinine Clearance 15.39 ml/min; Globulin 3.9 g/dL (2.2-4.2); Glucose 79 mg/dL (74-106); Lipase 655 U/L (73-393); Potassium 4.6 mmol/L (3.5-5.1); Protein, Total 6.2 g/dL (6.4-8.2); Sodium Level 130 mmol/L (136-145)
[2018-05-27 07:00] LABS: Bedside Glucose 86 mg/dL (70-110)
--- NOTE | 2018-05-27 07:43 | PCM.PN.HOSP ---
Subjective: Patient was seen and examined. Pain is fairly controlled. Denies fever or chills, nausea or vomiting. BS have been relatively low- she attributes it to taking her long acting insulin prior to admission but kept NPO. Going for surgery this am Objective: General: Alert, Oriented x3, Cooperative HEENT: Atraumatic, PERRLA, EOMI, Normocephalic Oral: Moist Mucosa Neck: Supple, No JVD, Negative Carotid Bruits Lungs: Clear to auscultation, Normal air movement Cardiovascular: Regular rate, Regular Rhythm, Normal S1, Normal S2, No murmurs Abdomen: Bowel Sounds Present, Soft, Tender - in the RUQ and upper abdomen without guarding or RBT, BS present Extremities: No edema Skin: No rashes Musculoskeletal: No Tenderness to Palpation of Joints or Extremities Lymphatic: No Cervical, Supraclavicular, or Inguinal Adenopathy Neurological: Cranial nerves II-XII grossly intact, Neuro grossly intact Psych/Mental Status: Normal Affect, Appropriate Vitals/I&O's: Vital Signs Temp Pulse Resp BP Pulse Ox 98.6 F 70 18 125/48 H 98 05/27/18 02:35 05/27/18 02:35 05/27/18 02:35 05/27/18 02:35 05/27/18 02:35 Oxygen Delivery Method Room Air Weight: 73.799 kg Body Mass Index (BMI) 29.0 Finger Stick Blood Glucose 322 Intake and Output for Last 24 Hours 05/25/18 05/26/18 05/27/18 23:59 23:59 23:59 Intake Total 883 / 883 472 / 472 Output Total 600 / 600 450 / 450 Balance 283 / 283 Laboratory Results 05/26/18 12:08: POC Glucose 205 H 05/26/18 13:00: Hemoglobin A1c 6.2 05/26/18 13:00: WBC 9.6, RBC 3.19 L, Hgb 10.6 L, Hct 31.2 L, MCV 97.8, MCH 33.2 H, MCHC 34.0, RDW 13.4, RDW Differential 47.8 H, Plt Count 216, MPV 10.7, Immature Gran % (Auto) 0.200, Neut % (Auto) 73.9 H, Lymph % (Auto) 17.6 L, Barry % (Auto) 7.3, Eos % (Auto) 0.7, Baso % (Auto) 0.3, Absolute Neuts (auto) 7.1, Absolute Lymphs (auto) 1.68, Total Counted Not Reportable 05/26/18 13:00: Sodium 122 L, Potassium 5.0, Chloride 95 L, Carbon Dioxide 17.0 L, Anion Gap 10, BUN 49 H, Creatinine 2.32 H, Estim Creat Clear Calc 16.32, Est GFR (MDRD) Af Amer 26 L, Est GFR (MDRD) Non-Af 22 L, BUN/Creatinine Ratio 21.1 H, Glucose 159 H, Calcium 7.8 L, Total Bilirubin 0.90, Direct Bilirubin 0.68 H, AST 331 H, ALT 148 H, Alkaline Phosphatase 310 H, Total Protein 6.7, Albumin 2.6 L, Globulin 4.1, Lipase 829 H 05/26/18 16:13: POC Glucose 64 L 05/26/18 16:39: POC Glucose 196 H 05/26/18 16:50: Ur Random Sodium 50 05/26/18 17:04: Sodium 127 L, Potassium 4.7, Chloride 96 L, Carbon Dioxide 15.0 L, Anion Gap 16 H, BUN 51 H, Creatinine 2.23 H, Estim Creat Clear Calc 16.97, Est GFR (MDRD) Af Amer 28 L, Est GFR (MDRD) Non-Af 23 L, BUN/Creatinine Ratio 22.9 H, Glucose 167 H, Calcium 7.7 L, Iron 69, TIBC 306, Iron Saturation 22.5 05/26/18 17:04: Serum Osmolality 275 L 05/26/18 21:30: POC Glucose 69 L 05/26/18 22:26: POC Glucose 109 05/27/18 02:40: POC Glucose 56 L 05/27/18 03:18: POC Glucose 116 H 05/27/18 05:09: POC Glucose 82 05/27/18 05:32: WBC 9.1, RBC 3.03 L, Hgb 10.0 L, Hct 29.8 L, MCV 98.3, MCH 33.0 H, MCHC 33.6, RDW 13.6, RDW Differential 48.9 H, Plt Count 212, MPV 11.0, Immature Gran % (Auto) 0.100, Neut % (Auto) 65.1, Lymph % (Auto) 24.1, Barry % (Auto) 8.9, Eos % (Auto) 1.4, Baso % (Auto) 0.4, Absolute Neuts (auto) 5.9, Absolute Lymphs (auto) 2.19, Total Counted Not Reportable 05/27/18 05:32: Sodium 130 L, Potassium 4.6, Chloride 100, Carbon Dioxide 15.0 L, Anion Gap 15, BUN 47 H, Creatinine 2.46 H, Estim Creat Clear Calc 15.39, Est GFR (MDRD) Af Amer 25 L, Est GFR (MDRD) Non-Af 20 L, BUN/Creatinine Ratio 19.1, Glucose 79, Calcium 7.9 L, Total Bilirubin 0.90, Direct Bilirubin 0.58 H, AST 311 H, ALT 136 H, Alkaline Phosphatase 255 H, Total Protein 6.2 L, Albumin 2.3 L, Globulin 3.9, Lipase 655 H 05/27/18 05:32: Magnesium 2.0 05/27/18 06:01: POC Glucose 88 05/27/18 06:56: POC Glucose 86 Current Medications Acetaminophen (Tylenol) 650 mg PO Q6H PRN PRN PRN Reason: PAIN Last Admin: 05/26/18 20:39 Dose: 650 mg Allopurinol (Zyloprim) 100 mg PO DAILY [facility] Amlodipine Besylate (Norvasc) 5 mg PO DAILY [facility] Atenolol (Tenormin (Beta Elvia)) 100 mg PO DAILY [facility] Dextrose (D50w Syringe) 0 gm IV X1 PRN; Protocol PRN Reason: Hypoglycemia Last Admin: 05/27/18 02:42 Dose: 12.5 gm Glucagon () 1 mg IM .X1 PRN PRN Reason: Hypoglycemia Hydralazine HCl (Apresoline Iv) 5 mg IV Q6H PRN PRN PRN Reason: BLOOD PRESSURE Cefotetan Disodium/Dextrose (Cefotan) 2 gm in 50 mls @ 100 mls/hr IV Q12 [facility] Last Admin: 05/26/18 21:35 Dose: 100 mls/hr Dextrose/Sodium Chloride (Dextrose 5%/0.9% Nacl) 1,000 mls @ 75 mls/hr IV .[id number] [facility] Last Admin: 05/26/18 16:30 Dose: 75 mls/hr Pantoprazole Sodium 40 mg/ (Sodium Chloride) 110 mls @ 330 mls/hr IV Q24 [facility] Dextrose (Dextrose 10%-Water) 250 mls @ 40 mls/hr IV .[id number] [facility] Last Admin: 05/27/18 04:01 Dose: 40 mls/hr Insulin Human Lispro (Humalog Kwikpen (Bkc)) 0 unit SQ ACHS [facility] PRN Reason: Protocol Last Admin: 05/27/18 06:59 Dose: Not Given Sodium Chloride () 5 - 30 ml IV UD PRN PRN Reason: SALINE FLUSH Last Admin: 05/26/18 11:56 Dose: 10 ml Medical Necessity - Tobacco Use Smoking Status: Never smoker Assessment/Plan 78-year-old female with past medical history of hypertension, type II DM on insulin, complicated with proteinuria, CKD stage IV follows up with nephrology, Dr. Pearson in the outpatient comes in with a three-week complained of right upper quadrant pain that goes across the upper abdomen. 1. Right upper quadrant pain secondary to acute cholelithiasis, less likely from acute cholecystitis, seen on ultrasound of the abdomen No fever or leukocytosis seen. Going for laparoscopic cholecystectomy tomorrow, kept n.p.o., on IV fluids, being managed by general surgery will defer to the management 2. Hypoglycemia, secondary to previous insulin and NPO status, treated and monitored overnight 3. Elevated liver function test, very slightly improved compared to yesterday, likely secondary to cholelithiasis, multiple gallstones and gallbladder, CBD looked okay as well as the liver from ultrasound 4. Elevated lipase likely related to cholelithiasis, Lipase improved from 829 to 655 questionable acute cholecystitis, less likely from acute pancreatitis, pancreas looked normal from the abdominal ultrasound done on 05/24/2018, will continue to monitor, defer further management to general surgery 5. Acute on chronic hypotonic hyponatremia, likely diuretic induced, Na improved to 130 from 122, urine sodium 50, Off hydrochlorothiazide Plan: Will continue to monitor 6. Non-anion gap metabolic acidosis, slight elevation in potassium, was previously elevated in the outpatient, will continue to monitor 7. Type II DM, off insuln, on insulin sliding scale with Accu-Cheks for now 8. Hypertension, controlled, continue home medication, hydrochlorothiazide on hold, lisinopril decreased to 20mg daily, will add as needed hydralazine for systolic blood pressure more than 160 9. CKD stage IV, follows nephrology in the outpatient, nephrology consulted 10. History of gout, on allopurinol 11. DVT Ppx- Per primary service Code Visit Inpatient E&M: 26635 Subs Hosp L2
[2018-05-27 08:16] LABS: Bedside Glucose 87 mg/dL (70-110)
--- NOTE | 2018-05-27 09:09 | NURSING ---
pt to surgery, family at bedside.
[2018-05-27 09:21] LABS: Bedside Glucose 106 mg/dL (70-110)
[2018-05-27 10:21] LABS: Bedside Glucose 127 mg/dL (70-110)
--- NOTE | 2018-05-27 10:30 | CASEMGMT ---
RN CM attempted to complete Face to Face at this time. Patient is currently off the floor in surgery. RN CM will attempt again at a later time.
--- NOTE | 2018-05-27 11:05 | GALL_PTH ---
PATIENT: JUN JOHNSON LOC: [facility] U#:[id number] AGE/SX: 78/F ROOM: [facility] RE05/28/[address]: Dr. Massiel Puente MD : [id number] BED: 1 DIS: 05/30/2018 SPEC #: [id number] RECD: 05/27/18 16:18 STATUS: TORIN RE #: [id number] STERLING: 05/27/18 11:[address]: Massiel Puente DEPT: SURGICAL PATHOLOGY RECD BY: Ramírez Barrios ENTERED: 05/30/18 13:45 SP TYPE: ROSALIE MARTINES DR: MD Dr. Donita Brody MD Dr. Christine Lee, DO Tissues: A - Gallbladder, NOS B - Liver, NOS Procedures: PAS with Diastase (control) Trichrome (control) Special Stain Group II PAS Stain (control) Surgery Specimen Level III Surgery Specimen Level V Retic (control) Iron Stain (control) HEADER OPERATION: Laparoscopic cholecystectomy with IOC PRE-OP DIAGNOSIS: Acute Cholelithiasis TISSUE SUBMITTED: A. Gallbladder, B. Wedge liver biopsy MICROSCOPIC DIAGNOSIS A. Gallbladder, cholecystectomy: Chronic cholecystitis. B. Liver, wedge biopsy: Chronic hepatitis, grade 2, stage 3 (modified Knodell system). AM:chica 05/31/18 COMMENT Clinical correlation is suggested. MICROSCOPIC DESCRIPTION Slides are reviewed. B. Sections show mild limiting plate necrosis with focal lobular necrosis. Trichrome stain with matched control reveals bridging fibrosis. Broad band fibrosis is not identified. The biopsy contains hepatic capsule. Iron stain with matched control does not reveal intraparenchymal deposition of iron. PAS with and without diastase do not reveal accumulation of abnormal proteins. Reticulin stain with matched control reveals a normal hepatic architecture. GROSS DESCRIPTION A - Received is one container labeled with the patient's name and designated gallbladder. The specimen consists of a previously opened gallbladder measuring 6 x 3.5 x 1.5 cm. The external surface is smooth and glistening. Focally, it is granular, hemorrhagic and contains cautery artifact. The lumen of the gallbladder or the specimen container does not contain stones. The gallbladder mucosa is bile-stained and free of mass lesions. The gallbladder wall averages 0.1 cm in thickness and is free of mass lesions. Ac[employer] sections of the gallbladder and the cystic duct are submitted in one cassette. B - Received in fixative is one container labeled with the patient's name and designated wedge liver biopsy. The specimen consists of an irregular fragment of negron tissue measuring 1.2 x 0.5 x 0.2 cm. The specimen is submitted in its entirety in one cassette. / AM:chica 05/30/18 TC:3 CPT: 03789, 46521, 14331 x5 ADDENDUM ADDENDUM ADDENDUM ADDENDUM ADDENDUM ADDENDUM ADDENDUM ADDENDUM ADDENDUM ADDENDUM ADDENDUM 07/19/2018 12:28 ADDENDUM 07/19/2018 12:28 ADDENDUM 07/19/2018 12:28 ADDENDUM 07/19/2018 12:28 ADDENDUM 07/19/2018 12:28 This case is discussed with Dr. Taylor 07/19/18. The presence of interface hepatitis with lymphocytic and smaller population of plasmacytic infiltrate extending focally into bordering hepatocytes, although nonspecific, may be seen in patients with autoimmune hepatitis. AM:chica 07/19/18 Case has been reviewed in consultation with Dr. Rivera who concurs with the above diagnosis. IDC:SJ
[2018-05-27] MEDS: Bupivacaine Mpf 0.5% 30 ML VIAL (14:08)
--- NOTE | 2018-05-27 14:21 | PCM.OPRPT ---
Report of Operation Date of Procedure: 05/27/18 Pre-Operative Diagnosis: Acute cholecystitis, cholelithiasis, elevated liver function Post-Operative Diagnosis: Acute cholecystitis, cholelithiasis, abdominal ascites, fibrosis of the liver Surgery/Procedure Performed:: Laparoscopic cholecystectomy with cholangiograms, wedge biopsy liver. blow down operator: Ramos Saxena Type of Anesthesia:: General/Supplemental Anesthesiologist: Dennis Mccormick Special Medications: Patient previously on Cefotan 2 g IV for cholecystitis Specimen's removed: Gallbladder and gallstones Estimated Blood Loss (mL): < 40 cc Fluids Replaced: 1200 cc Description of Procedure: Indications this is a 78 year-old female who developed abdominal pain/nausea/vomiting and on workup was found to have cholelithiasis, acute cholecystitis, elevated liver enzymes with a normal common bile duct and wbc with a left shift. Laparoscopic cholecystectomy was elected. Description procedure: The patient was placed on operating table in supine position. General Anesthesia was induced. A timeout was completed verifying correct patient, procedure, site, position, social, and special equipment prior to beginning procedure. An orogastric tube was placed. The abdomen was prepped and draped in usual sterile fashion. An incision was made in the natural skin line above the umbilicus. The fascia was elevated and incised. The peritoneum was elevated and incised. Entry into the peritoneum was confirmed visually and no bowel was noted in the vicinity of the incision. Montalvo trocar was placed. The abdomen was insufflated with carbon dioxide to a pressure of 12-15 mmHg. Patient tolerated insufflation well. The laparoscope was then inserted and abdomen inspected. No injuries from initial trocar placement were noted. Additional trochars were then inserted in the following locations 5 mm trocar in the epigastrium and 2 more 5 mm trochars along the right costal margin. The abdomen was inspected no abnormalities were found. The table is placed in Trendelenburg position with the right side up. Abdominal ascites over the liver was suctioned. The adhesions between the gallbladder and omentum were pulled down with gentle pressure. The dome of the gallbladder was grasped with atraumatic grasper passed through the lateral port and retracted over the dome of the liver. Infundibulum was then grasped with atraumatic grasper through the midclavicular port and retracted to the right lower quadrant. Due to the chronic inflammation the gallbladder wall was quite thin and a hole was made in the infundibulum. Gallstones were retrieved into laparoscopic retrieval bag. The peritoneum overlying the gallbladder infundibulum was then incised and cystic duct was identified circumferentially dissected. Ranfac catheter was used to obtain cholangiograms. Cholangiograms did show good flow of bile into the duodenum with no filling defects as well as the right and left bile ducts. The cystic duct was then doubly clipped and divided close to the gallbladder. With the chronic inflammation as well as the fibrotic liver unable to clearly see the artery the gallbladder from the liver bed except for a small amount of the posterior wall which was cauterized. The gallbladder then dissected from its peritoneal attachments by electrocautery. There was a small amount of bleeding on the gallbladder bed which was controlled with argon beam. Also small wedge of liver tissue was taken with scissors for liver biopsy and hemostasis was obtained with the argon beam. Hemostasis was checked and the gallbladder and stones were removed using the endoscopic retrieval bag through the umbilical port. The gallbladder is passed off table as specimen. The gallbladder fossa was copiously irrigated with saline and hemostasis obtained. There is no evidence of bleeding from the gallbladder fossa or cystic artery leakage of bile from the cystic duct stump. Secondary trochars removed under direct vision. No bleeding was noted the trocar sites. The laparoscope was withdrawn and umbilical trocar removed. The abdomen was allowed to collapse. The fascia of the 12 mm trocar was closed with a [id number] 0 Vicryl suture. The skin was closed with sutures of 4-0 Monocryl and Steri-Strips. The orogastric tube was removed and the patient was extubated. The patient tolerated procedure well and was taken to the postanesthesia care unit in stable condition. - Complications none
[2018-05-27 14:46] LABS: Bedside Glucose 159 mg/dL (70-110)
--- NOTE | 2018-05-27 16:09 | PCM.DC.SUM ---
Discharge Date and Diagnosis Date of Admission: 05/26/18 Date of Discharge: 05/28/18 - Primary Discharge Diagnosis Cholelithiasis Acute cholecystitis, Fibrosis of liver Abdominal ascites Chronic kidney disease Diabetes Chronic hyponatremia Hospital Course and Treatment Dr. Toscano for medical management Dr. Pearson her chronic kidney disease Operations: cholecystecomy - with liver biopsy Procedures: None Summary of Care Provided: The patient is a 78 year old F was direct admitted from the office on 05/26/18 due to 3 weeks of epigastric abdominal pain, nausea and vomiting and anorexia. Patient did have an outpatient ultrasound did show gallstones along with gallbladder wall thickening of 3 mm and pericholecystic fluid. Upon admission patient did have an normal white blood cell count with a left shift as well as elevated AST, ALT and alk phos and lipase. These were all likely due to local inflammation due to the acute cholecystitis. Patient also had a notable sodium of 122 which was slowly corrected to [address] Toscano and Dr. Pearson were consulted for medical management and chronic kidney disease. Patient did undergo a laparoscopic cholecystectomy with cholangiograms and wedge liver biopsy on 05/27/18. Cholangiogram does not show any filling defects and normal bile ducts. The liver did look fibrotic thus liver biopsy was done time of surgery. Patient was restarted on a normal diet after surgery. On postop day 1 patient did have a syncopal episode however CT of the head as well as MRI of the head were negative likely vagal episode. Patient did well throughout the week and was able to tolerate her diet was still having issues with hyponatremia and chronic kidney disease which she was also on a bicarb drip for per nephrology. Patient's blood sugars were not well controlled however she was on at home dose which was quite a bit higher than she was receiving here as she did have some hypoglycemic episodes initially. However patient's A1c shows it has been under fairly good control at home. Patient has been okayed for DC per nephrology and hospitalist. Plans to DC patient's lisinopril as well as hydrochlorothiazide and continue her home medication. Patient did have some serous leakage likely abdominal ascites which was seen intraoperatively from her lateral right trocar site. This was prepped draped in usual sterile fashion and a U stitch was placed in both of the right lateral incisions to prevent leakage of ascites. Discharge Diet: No Restrictions Discharge Activity: May not drive while taking narcotic pain medications. May shower in (days): 1 Lifting Restrict to (lbs):: 20 - for 4 weeks Call your doctor if your incision/area has: Continuous Slow Oozing, Sudden Increased Bleeding, Increased Pain/ Swelling, Increased Redness, Foul Smelling Discharge, Swelling at the incision site Call your doctor if you observe: Fever of 101 or Higher Remove Dressing in (days):: 1 Home Medications: Medications to take at Discharge Atenolol [Tenormin (beta marilyn)] 100 mg PO DAILY 12/05/17 Allopurinol 100 mg PO DAILY 05/26/18 Insulin Lispro [Humalog] 20 unit SC LUNCH 05/26/18 amlodipine 5 mg tablet 5 mg PO DAILY 05/26/18 cholecalciferol (vitamin D3) 1,000 unit capsule 1,000 unit PO BID 05/26/18 cinnamon bark 500 mg capsule 1 cap PO DAILY cap 05/26/18 glucosamine HCl 750 mg tablet 750 mg PO DAILY tab 05/26/18 insulin detemir (U-100) 100 unit/mL (3 mL) subcutaneous pen 40 unit SC BREAKFAST ml 05/26/18 insulin lispro (U-100) 100 unit/mL subcutaneous pen 10 unit SC QPM 05/26/18 insulin lispro (U-100) 100 unit/mL subcutaneous pen 20 unit SC BREAKFAST 05/26/18 magnesium 64 mg (magnesium chloride) tablet,delayed release 64 mg PO DAILY tab 05/26/18 multivitamin tablet 1 tab PO DAILY 05/26/18 selenium 100 mcg tablet 100 mcg PO DAILY 05/26/18 sour bolivar extract 1,000 mg capsule 1 mg PO TID PRN cap 05/26/18 Tramadol HCl [Ultram] 50 mg PO BID PRN PRN 5 Days #10 tablet 05/27/18 Following Prescrptions Were Given to Patient: Tramadol HCl [Ultram] 50 mg PO BID PRN PRN 5 Days #10 tablet PRN Reason: Pain Primary Care Physician: Taylor Alvarenga MD [Primary Care Provider] - Please Follow Up With: Massiel Puente MD - After 5 PM/weekends call [phone] with any questions or concerns When: Call the office [phone] for a f/u appt in 1 wk for suture removal Additional Instructions: Discussed with patient that she may also need to see GI doctor for her liver fibrosis. Pending Tests Upon Discharge: Liver biopsy pending Disposition: Home Minutes spent on discharge:: 15 Patient Condition:: Stable Medical Necessity - Tobacco Use Smoking Status: Never smoker Meaningful Use Info Meaningful Use Diagnoses (Choose all that apply): None applicable Code Visit Inpatient E&M: 72041 Disch Hosp
[2018-05-27 16:21] LABS: Bedside Glucose 171 mg/dL (70-110)
[2018-05-27] MEDS: Dextrose 5%/0.9% NaCl 1,000 ML 75 ML IV (16:23)
--- NOTE | 2018-05-27 16:51 | PCM.PN.BLA ---
Progress Note Pt known to me with CKD stage 4 due to diabetes, hypertension. Last seen in office March 2018 with baseline creatinine in mid 2's admitted for abdominal pain, cholecystitis, choledocholithiasis with elevated liver enzymes. Pt in OR for cholecystectomy today. Labs, chart reviewed. Sodium improved with normal saline, renal function at baseline. Held ACEI due to mild hyperkalemia on admit and rise in creatinine today. HCTZ on hold due to hyponatremia. Will follow up post op labs.
--- NOTE | 2018-05-27 16:55 | PN_ITS ---
Progress Note Pt known to me with CKD stage 4 due to diabetes, hypertension. Last seen in office March 2018 with baseline creatinine in mid 2's admitted for abdominal pain , cholecystitis, choledocholithiasis with elevated liver enzymes. Pt in OR for cholecystectomy today. Labs, chart reviewed. Sodium improved with normal saline , renal function at baseline. Held ACEI due to mild hyperkalemia on admit and rise in creatinine today. HCTZ on hold due to hyponatremia. Will follow up post op labs.
[2018-05-27] MEDS: Insulin Lispro 100 UNIT/ML INSULN.PEN SQ (21:33)
[2018-05-27] MEDS: Acetaminophen 325 MG Tablet 650 MG PO (21:33)
[2018-05-27 22:16] LABS: Bedside Glucose 275 mg/dL (70-110)
[2018-05-28] VITALS (10 sets, daily range): BP systolic 106–147; BP diastolic 60–87; PULSE 59–98; RESP 16–18; TEMP 36.6–37.1; O2SAT 93–98
[2018-05-28] MEDS: Dextrose 5%/0.9% NaCl 1,000 ML 75 ML IV (04:20)
[2018-05-28] MEDS: Acetaminophen 325 MG Tablet 650 MG PO ×2 (04:23→20:14)
--- NOTE | 2018-05-28 04:27 | NURSING ---
Patient ambulated in hallway with this RN out to satellite nurses station near patients room during this time. Patient tolerated well. PRN pain medication given once returned back to room. No other needs voiced at this time.
[2018-05-28] MEDS: Insulin Lispro 100 UNIT/ML INSULN.PEN SQ ×3 (06:59→21:34)
[2018-05-28 07:10] LABS: Bedside Glucose 217 mg/dL (70-110)
[2018-05-28 07:21] LABS: Absolute Lymphocyte Count 1.35 X10^3/ul (0.83-4.51); Absolute Neutrophil Count 6.9 X10^3/uL (2.0-7.7); Basophil# 0.01 X10^3/uL; Basophil% 0.1 % (0-1); Hematocrit 28.3 % (37-47); Hemoglobin 9.4 g/dl (12.0-15.0); Lymphocyte # 1.35 X10^3/ul (4.0); Lymphocyte % 14.9 % (19-41); Mean Corp Hgb Conc 33.2 g/gl (32-36); Mean Corpuscular Hgb 33.5 pg (27.0-32.0); Mean Corpuscular Volume 100.7 fL (81-99); Monocyte# 0.81 X10^3/uL; Monocyte% 8.9 % (0-10); Neutrophil # 6.88 X10^3/uL (2.7-7.7); Neutrophil % 75.8 % (47-70); Platelet Count 196 K/mm3 (150-450); RBC Distribution Width CV 13.3 % (11.6-14.6); RBC Distribution Width SD 47.2 fl (35.1-43.9); Red Blood Count 2.81 M/mm3 (4.2-5.4); White Blood Count 9.1 K/mm3 (4.4-11.0)
[2018-05-28 07:26] LABS: POSITIVE COUNT NO; POSITIVE DIFFERENTIAL NO; POSITIVE MORPHOLOGY NO
[2018-05-28 07:35] LABS: ALB/GLOB Ratio 0.6 RATIO (0.9-2.4); AST(SGOT) 215 U/L (15-37); Alanine Aminotransfer ALT/SGPT 108 U/L (13-56); Alkaline Phosphatase 204 U/L (45-117); Anion Gap 12 (5-15); BUN 46 mg/dL (7-18); BUN/Creat Ratio 17.3 RATIO (10-20); Calcium,Total 7.6 mg/dL (8.5-10.1); Chloride 104 mmol/L (98-107); Creatinine, Serum 2.66 mg/dL (0.55-1.02); EST Glomerular Filtration Rate 19 mL/min (>60); Est Glom Filt Rate - Afr Amer 22 mL/min (>60); Estimated Creatinine Clearance 14.23 ml/min; Globulin 3.5 g/dL (2.2-4.2); Glucose 209 mg/dL (74-106); Potassium 5.5 mmol/L (3.5-5.1); Protein, Total 5.5 g/dL (6.4-8.2); Sodium Level 130 mmol/L (136-145)
--- NOTE | 2018-05-28 08:37 | PCM.PN.HOSP ---
Subjective: Patient seen and examined. Appears improved. Abdominal pain is controlled except when she moves. Denies fever, chills, nausea, vomiting, diarrhea, SOB, chest pain. Objective: Physical exam: General: Alert, Oriented x3, Cooperative HEENT: Atraumatic, PERRLA, EOMI, Normocephalic Oral: Moist Mucosa Neck: Supple, No JVD, Negative Carotid Bruits Lungs: Clear to auscultation, Normal air movement Cardiovascular: Regular rate, Regular Rhythm, Normal S1, Normal S2, No murmurs Abdomen: Laparoscopic dressings on anterior abdomen, dry, clean, intact, Bowel Sounds Present, Soft, Tender - in the RUQ and upper abdomen without guarding or RBT, BS present Extremities: No edema Skin: No rashes Musculoskeletal: No Tenderness to Palpation of Joints or Extremities Lymphatic: No Cervical, Supraclavicular, or Inguinal Adenopathy Neurological: Cranial nerves II-XII grossly intact, Neuro grossly intact Psych/Mental Status: Normal Affect, Appropriate Vitals/I&O's: Vital Signs Temp Pulse Resp BP Pulse Ox 98 F 65 16 131/60 H 98 05/28/18 07:49 05/28/18 07:49 05/28/18 07:49 05/28/18 07:49 05/28/18 07:49 Oxygen Delivery Method Room Air Weight: 73.799 kg Body Mass Index (BMI) 29.0 Finger Stick Blood Glucose 159 Intake and Output for Last 24 Hours 05/26/18 05/27/18 05/28/18 23:59 23:59 23:59 Intake Total 883 / 883 2873 / 2873 491 / 491 Output Total 600 / 600 650 / 650 300 / 300 Balance 283 / 283 2223 / 2223 191 / 191 Laboratory Results 05/27/18 09:16: POC Glucose 106 05/27/18 10:15: POC Glucose 127 H 05/27/18 14:42: POC Glucose 159 H 05/27/18 16:16: POC Glucose 171 H 05/27/18 21:29: POC Glucose 275 H 05/28/18 06:30: WBC 9.1, RBC 2.81 L, Hgb 9.4 L, Hct 28.3 L, MCV 100.7 H, MCH 33.5 H, MCHC 33.2, RDW 13.3, RDW Differential 47.2 H, Plt Count 196, MPV 11.0, Immature Gran % (Auto) 0.300, Neut % (Auto) 75.8 H, Lymph % (Auto) 14.9 L, [place] % (Auto) 8.9, Eos % (Auto) 0.0, Baso % (Auto) 0.1, Absolute Neuts (auto) 6.9, Absolute Lymphs (auto) 1.35, Total Counted Not Reportable 05/28/18 06:30: Sodium 130 L, Potassium 5.5 H, Chloride 104, Carbon Dioxide 14.0 L, Anion Gap 12, BUN 46 H, Creatinine 2.66 H, Estim Creat Clear Calc 14.23, Est GFR (MDRD) Af Amer 22 L, Est GFR (MDRD) Non-Af 19 L, BUN/Creatinine Ratio 17.3, Glucose 209 H, Calcium 7.6 L, Total Bilirubin 0.70, AST 215 H, ALT 108 H, Alkaline Phosphatase 204 H, Total Protein 5.5 L, Albumin 2.0 L, Globulin 3.5, Albumin/Globulin Ratio 0.6 L 05/28/18 06:57: POC Glucose 217 H Current Medications Acetaminophen (Tylenol) 650 mg PO Q6H PRN PRN PRN Reason: PAIN Last Admin: 05/28/18 04:23 Dose: 650 mg Allopurinol (Zyloprim) 100 mg PO DAILY [facility] Last Admin: 05/27/18 16:23 Dose: Not Given Amlodipine Besylate (Norvasc) 5 mg PO DAILY [facility] Last Admin: 05/27/18 16:23 Dose: Not Given Atenolol (Tenormin (Beta Elvia)) 100 mg PO DAILY [facility] Last Admin: 05/27/18 16:23 Dose: Not Given Dextrose (D50w Syringe) 0 gm IV X1 PRN; Protocol PRN Reason: Hypoglycemia Last Admin: 05/27/18 02:42 Dose: 12.5 gm Glucagon () 1 mg IM .X1 PRN PRN Reason: Hypoglycemia Hydralazine HCl (Apresoline Iv) 5 mg IV Q6H PRN PRN PRN Reason: BLOOD PRESSURE Pantoprazole Sodium 40 mg/ (Sodium Chloride) 110 mls @ 330 mls/hr IV Q24 [facility] Last Admin: 05/27/18 16:21 Dose: 330 mls/hr Insulin Human Lispro (Humalog Kwikpen (Bkc)) 0 unit SQ ACHS [facility] PRN Reason: Protocol Last Admin: 05/28/18 06:59 Dose: 4 u Morphine Sulfate () 0.5 - 1 mg IV Q3H PRN PRN PRN Reason: SEVERE PAIN (6-10/10) Nutritional Formula (Lactose Free) (Ensure Enlive) 120 ml PO 4X/DAY [facility] Ondansetron HCl (Zofran) 4 mg IV Q8H PRN PRN PRN Reason: NAUSEA Sodium Chloride () 5 - 30 ml IV UD PRN PRN Reason: SALINE FLUSH Last Admin: 05/26/18 11:56 Dose: 10 ml Tramadol HCl (Ultram) 50 mg PO BID PRN PRN PRN Reason: MODERATE PAIN (4-5/10) Medical Necessity - Tobacco Use Smoking Status: Never smoker Assessment/Plan 78-year-old female with past medical history of hypertension, type II DM on insulin, complicated with proteinuria, CKD stage IV follows up with nephrology, Dr. Pearson in the outpatient comes in with a three-week complained of right upper quadrant pain that goes across the upper abdomen. 1.POD #1, s/p laparoscopic cholecystectomy, for acute abdominal pain secondary to acute cholelithiasis, further management per general surgery 2. Hyperkalemia, off Lisinopril, likely secondary to CKD, will repeat BMP in 4-6 hrs 3. Hypoglycemia, secondary to previous insulin and NPO status, resolved 4. Elevated liver function test, secondary to cholelithiasis, multiple gallstones and gallbladder, improving 5. Elevated lipase likely related to cholelithiasis, less likely acute pancreatitis, resolving 6. Acute on chronic hypotonic hyponatremia, likely diuretic induced, off HCTZ, sodium appears stable, needs close monitoring, nephro consulted. 6. Non-anion gap metabolic acidosis, remains about the same, started on sodium bicarbonate, nephro following 7. Type II DM, BS fairly controlled, will slowly resume insulin - 10 units Lantus, 5 units premeal SC, continue with accucheks and ISS. Depending on how her bloos sugars play out, she may resume on home insulin regimen. 8. Hypertension, controlled, off home hydrochlorothiazide, lisinopril decreased to 20mg daily, on amlodipine, atenolol, as needed hydralazine for systolic blood pressure more than 160 9. CKD stage IV, h/o proteinuria, Cr is slightly worse, from 2.32 to 2.66, off Lisinopril for nowfollows nephrology in the outpatient, nephrology consulted 10. History of gout, on allopurinol 11. DVT Ppx- Per primary service Code Visit Inpatient E&M: 88603 Subs Hosp L2
--- NOTE | 2018-05-28 09:39 | NURSING ---
0900 came to desk and stated he needed help. went to room. pt unresponsive in chair, eye open and pt moaning. chewed food removed from pt mouth. pt lifted into bed. ham rolling machine operator called. dr larkin at beside. vitals signs and glucometer obtained. stroke team called. pt having slurred speech and left side weakness along with left side facial droop. pt unaware of what happened. pt sent to ct scan. pt transferred to pcu report given to pcu nurse at bedside.
--- NOTE | 2018-05-28 09:56 | PCM.PN.BLA ---
Progress Note Called to patient's room for episode of unresponsiveness. Patient had gotten up, gone to the bathroom, was sitting in her chair having her breakfast. Her walked in and found her pale, unresponsive, with a facial droop. Seen patient immediately, had slurred speech, left facial droop, brought to her bed, BP 134/48, BS 174, speech seemed to be improving. NIHSS score initially 2, repeat NIHSS later repeated in 10-15 mins was 1, CT scan of brain was negative for acute stroke. Transferred to PCU, kept on Telemetry, repeat NIHSS was 0. Will get MRI of brain to r/o acute stroke, monitor NIHSS x1, monitor on telemetry, Neuro consult.
[2018-05-28] MEDS: 0.9% Normal Saline 1,000 ML 100 ML IV (10:05)
[2018-05-28] MEDS: amLODIPine 5 MG Tablet PO (10:06)
[2018-05-28] MEDS: Sodium Polystyrene Sulfonate 15 GM/60 ML UDC PO (10:06)
[2018-05-28] MEDS: Allopurinol 100 MG Tablet PO (10:06)
[2018-05-28] MEDS: Pantoprazole Sodium 40 MG Tablet PO (10:07)
[2018-05-28] MEDS: Atenolol 100 MG Tablet PO (10:07)
--- NOTE | 2018-05-28 11:06 | CPS ---
Placed on Nasal Cannula per nursing during ELECTRONICS TECHNOLOGY INSTRUCTOR.
--- NOTE | 2018-05-28 11:50 | CASEMGMT ---
Face to Face with patient for initial transition planning/care coordination assessment. RN APPLE introduced self and role at [facility], pt voices understanding and consents to assessment at this time. Pt is sitting up in bed in no distress at this time. Pt is A/O x4 at this time and answers all questions appropriately at this time. Care providers, pharmacy, and demographics verified. See attached link. Pt voices no further concerns/needs at this time. Advised pt to ask for CM if any further questions/concerns/needs arise, voices understanding. CM to follow for any further discharge planning/needs. PLAN: Home, pending PT/OT nawaf Angela RN, CM
[2018-05-28 12:14] LABS: Anion Gap 12 (5-15); BUN 47 mg/dL (7-18); Calcium,Total 7.8 mg/dL (8.5-10.1); Chloride 102 mmol/L (98-107); Creatinine, Serum 2.77 mg/dL (0.55-1.02); EST Glomerular Filtration Rate 18 mL/min (>60); Est Glom Filt Rate - Afr Amer 21 mL/min (>60); Estimated Creatinine Clearance 13.67 ml/min; Glucose 214 mg/dL (74-106); Potassium 5.2 mmol/L (3.5-5.1); Sodium Level 130 mmol/L (136-145)
--- NOTE | 2018-05-28 13:08 | PCM.PN.SRG ---
Subjective: While patient was sitting up had an episode where she passed out was sent down to the CAT scan which did not show any signs of an acute stroke underwent an MRI but these findings have not been published yet. Patient states that she is tolerating liquids without difficulty she does not feel nauseated her abdominal pain has significantly improved. She remembers the event of blacking out she does not recall seeing any lites she has no numbness or tingling. Objective: Incisions are clean dry abdomen is soft multiple bruises on her abdomen probably secondary to subcutaneous injections no signs or rebound guarding or peritoneal signs. - Physical Exam Vital Signs Temp Pulse Resp BP Pulse Ox 98.7 F 63 18 125/78 H 97 05/28/18 09:48 05/28/18 12:01 05/28/18 09:48 05/28/18 09:48 05/28/18 09:48 Oxygen Flow Rate (L/min) 4 Oxygen Delivery Method Room Air Weight: 162 lb 11.183 oz Body Mass Index (BMI) 29.0 Finger Stick Blood Glucose 159 Intake and Output for Last 24 Hours 05/26/18 05/27/18 05/28/18 23:59 23:59 23:59 Intake Total 883 / 883 2873 / 2873 851 / 851 Output Total 600 / 600 650 / 650 300 / 300 Balance 283 / 283 2223 / 2223 551 / 551 Laboratory Tests Past 24 Hrs 05/28/18 05/28/18 05/28/18 06:30 06:30 11:45 WBC 9.1 RBC 2.81 L Hgb 9.4 L Hct 28.3 L MCV 100.7 H MCH 33.5 H MCHC 33.2 RDW 13.3 RDW Differential 47.2 H Plt Count 196 MPV 11.0 Immature Gran % (Auto) 0.300 Neut % (Auto) 75.8 H Lymph % (Auto) 14.9 L [place] % (Auto) 8.9 Eos % (Auto) 0.0 Baso % (Auto) 0.1 Absolute Neuts (auto) 6.9 Absolute Lymphs (auto) 1.35 Total Counted Not Reportable Sodium 130 L 130 L Potassium 5.5 H 5.2 H Chloride 104 102 Carbon Dioxide 14.0 L 16.0 L Anion Gap 12 12 BUN 46 H 47 H Creatinine 2.66 H 2.77 H Estim Creat Clear Calc 14.23 13.67 Est GFR (MDRD) Af Amer 22 L 21 L Est GFR (MDRD) Non-Af 19 L 18 L BUN/Creatinine Ratio 17.3 17.0 Glucose 209 H 214 H Calcium 7.6 L 7.8 L Total Bilirubin 0.70 AST 215 H ALT 108 H Alkaline Phosphatase 204 H Total Protein 5.5 L Albumin 2.0 L Globulin 3.5 Albumin/Globulin Ratio 0.6 L POC Glucose 05/28/18 05/27/18 05/27/18 06:57 21:29 16:16 POC Glucose 217 H 275 H 171 H 05/27/18 14:42 POC Glucose 159 H Medical Necessity - Tobacco Use Smoking Status: Never smoker Assessment/Plan Current management by medical and neurology consult is pending. Okay to advance diet as tolerated.
[2018-05-28 16:20] LABS: Bedside Glucose 297 mg/dL (70-110)
--- NOTE | 2018-05-28 16:59 | PCM.CONS.R ---
Consultation - Renal 05/28/18 PCP/ Referring MD: Requesting physician: [] Primary care physician: Taylor Alvarenga MD Reason for Consultation:: acute on CKD stage 4. hyponatremia - History of Present Illness History of Present Illness: 78-year-old female known to me with CKD stage IV due to diabetes followed in the outpatient office presents with 3 week history of abdominal pain, right upper quadrant with nausea and vomiting. She was diagnosed with cholecystitis, acute gallstone pancreatitis with elevated liver enzymes. She underwent laparoscopic cholecystectomy on May 27. Creatinine on admission was 2.3 increased to 2.7 today. She has metabolic acidosis with hyperkalemia. Her sodium level was low at 125 improved to 130 today with IV hydration. Her hydrochlorothiazide was discontinued. She has a history of diabetes mellitus type 2 along with hypertension. She has been feeling well postoperatively and was ready to go home this morning, up walking the hallway until her found her unresponsive. She was evaluated for stroke and neurology was consulted. She transferred from [facility] to telemetry floor. She was treated for her high potassium with Kayexalate and was started on a bicarbonate drip for her metabolic acidosis today. Currently she denies any nausea or vomiting. She does have abdominal distention and discomfort diffusely. She admits to flatus. She did have toast thismorning for breakfast. Family and spouse is at bedside. She appears to be back to her baseline mental status. - Allergies Allergies: Allergies codeine Adverse Reaction (Verified 12/07/17 16:13) Hives pain medications Adverse Reaction (Intermediate, Uncoded 05/26/18 10:13) nausea/vomiting - Current Medications Current Medications: Current Medications Acetaminophen (Tylenol) 650 mg PO Q6H PRN PRN PRN Reason: PAIN Last Admin: 05/28/18 04:23 Dose: 650 mg Allopurinol (Zyloprim) 100 mg PO DAILY [facility] Last Admin: 05/28/18 10:06 Dose: 100 mg Amlodipine Besylate (Norvasc) 5 mg PO DAILY [facility] Last Admin: 05/28/18 10:06 Dose: 5 mg Atenolol (Tenormin (Beta Elvia)) 100 mg PO DAILY [facility] Last Admin: 05/28/18 10:07 Dose: 100 mg Cholecalciferol (Vitamin D) 1,000 unit PO BID [facility] Last Admin: 05/28/18 10:07 Dose: 1,000 unit Dextrose (D50w Syringe) 0 gm IV X1 PRN; Protocol PRN Reason: Hypoglycemia Last Admin: 05/27/18 02:42 Dose: 12.5 gm Glucagon () 1 mg IM .X1 PRN PRN Reason: Hypoglycemia Hydralazine HCl (Apresoline Iv) 5 mg IV Q6H PRN PRN PRN Reason: BLOOD PRESSURE Sodium Bicarbonate 150 meq/ (Dextrose) 1,150 mls @ 75 mls/hr IV .[id number] [facility] Last Admin: 05/28/18 10:09 Dose: 75 mls/hr Sodium Chloride () 1,000 mls @ 50 mls/hr IV .Q20H [facility] Last Admin: 05/28/18 16:07 Dose: Not Given Insulin Human Lispro (Humalog Kwikpen (Bkc)) 0 unit SQ ACHS [facility] PRN Reason: Protocol Last Admin: 05/28/18 16:14 Dose: 2 u Morphine Sulfate () 0.5 - 1 mg IV Q3H PRN PRN PRN Reason: SEVERE PAIN (6-10/10) Nutritional Formula (Lactose Free) (Ensure Enlive) 120 ml PO 4X/DAY [facility] Last Admin: 05/28/18 12:42 Dose: 120 ml Ondansetron HCl (Zofran) 4 mg IV Q8H PRN PRN PRN Reason: NAUSEA Pantoprazole Sodium (Protonix) 40 mg PO DAILY [facility] Last Admin: 05/28/18 10:07 Dose: 40 mg Sodium Chloride () 5 - 30 ml IV UD PRN PRN Reason: SALINE FLUSH Last Admin: 05/26/18 11:56 Dose: 10 ml Tramadol HCl (Ultram) 50 mg PO BID PRN PRN PRN Reason: MODERATE PAIN (4-5/10) - Social History Smoking Status: Never smoker Review of Systems Constitutional: Denies: Anorexia, Chills, Fever, Weakness Eyes: Denies: Blurred vision HEENT: Denies: Head Aches Cardiovascular: Denies: Chest Pain, Edema Respiratory: Reports: Cough. Denies: Shortness of Breath Gastrointestinal: Reports: Abdominal Pain, - - +flatus. Denies: Constipation, Diarrhea, Nausea, Vomiting Genitourinary: Denies: Dysuria, Retention Skin: Denies: Rash Neurological: Reports: - - Episode of confusion and mental status change earlier today.. Denies: Balance problems, Tremor, Seizures Psychiatric: Denies: Anxiety, Depression Hematologic/ Lymphatic: Reports: Anemia - Physical Exam General: Alert, Oriented x3, Cooperative, No apparent distress HEENT: PERRLA, EOMI Oral: Moist Mucosa Neck: Supple Lungs: Clear to auscultation Cardiovascular: Regular rate Abdomen: Bowel Sounds Present, Soft, Hypoactive Bowel Sounds, Distended, Tender Extremities: No edema Skin: No rashes Musculoskeletal: No Muscle Wasting Neurological: Cranial nerves II-XII grossly intact, Motor Exam 5/5 strength throughout Psych/Mental Status: Normal Affect, Appropriate, Alert and oriented to time, place, person, mood and affect Vital Signs Temp Pulse Resp BP Pulse Ox 98.7 F 98 16 121/69 H 95 05/28/18 13:50 05/28/18 15:15 05/28/18 13:50 05/28/18 13:50 05/28/18 13:50 Oxygen Flow Rate (L/min) 4 Oxygen Delivery Method Room Air Weight: 73.799 kg Body Mass Index (BMI) 29.0 Finger Stick Blood Glucose 159 Intake and Output for Last 24 Hours 05/26/18 05/27/18 05/28/18 23:59 23:59 23:59 Intake Total 883 / 883 2873 / 2873 851 / 851 Output Total 600 / 600 650 / 650 300 / 300 Balance 283 / 283 2223 / 2223 551 / 551 Laboratory Tests Past 24 Hrs 05/28/18 05/28/18 05/28/18 06:30 06:30 11:45 WBC 9.1 RBC 2.81 L Hgb 9.4 L Hct 28.3 L MCV 100.7 H MCH 33.5 H MCHC 33.2 RDW 13.3 RDW Differential 47.2 H Plt Count 196 MPV 11.0 Immature Gran % (Auto) 0.300 Neut % (Auto) 75.8 H Lymph % (Auto) 14.9 L [place] % (Auto) 8.9 Eos % (Auto) 0.0 Baso % (Auto) 0.1 Absolute Neuts (auto) 6.9 Absolute Lymphs (auto) 1.35 Total Counted Not Reportable Sodium 130 L 130 L Potassium 5.5 H 5.2 H Chloride 104 102 Carbon Dioxide 14.0 L 16.0 L Anion Gap 12 12 BUN 46 H 47 H Creatinine 2.66 H 2.77 H Estim Creat Clear Calc 14.23 13.67 Est GFR (MDRD) Af Amer 22 L 21 L Est GFR (MDRD) Non-Af 19 L 18 L BUN/Creatinine Ratio 17.3 17.0 Glucose 209 H 214 H Calcium 7.6 L 7.8 L Total Bilirubin 0.70 AST 215 H ALT 108 H Alkaline Phosphatase 204 H Total Protein 5.5 L Albumin 2.0 L Globulin 3.5 Albumin/Globulin Ratio 0.6 L POC Glucose 05/28/18 05/28/18 05/27/18 16:13 06:57 21:29 POC Glucose 297 H 217 H 275 H Clinical Impression(s) from Imaging Studies Brain CT 05/28/18 08:59 IMPRESSION: 1. Chronic involutional and ischemic changes of the brain. 2. No acute intracranial abnormality/acute CVA demonstrated. N.B. : The above information has been verbally conveyed by Jovita Bell MD to Donita Toscano, Referring Physician, on 05/28/2018 09:39:01 (ET). Electronically Signed: Jovita Bell MD at 9:36 EDT Tel , Service support , Brain MRI 05/28/18 09:46 IMPRESSION: Moderate periventricular senescent changes with no evidence of acute intracranial bleed, mass or ischemia. Electronically Signed: Chris Waldron DO at 14:58 EDT , Service support , Assessment/Plan 1. Acute on CKD stage IV with underlying diabetic nephropathy. Baseline creatinine 2.23 increased to 2.77 today. She is nonoliguric without uremic symptoms. Suspect prerenal event causing the acute renal failure. We will continue to monitor renal function. Continue with IV hydration since patient with decreased oral intake with recent surgery. 2. Acute cholecystitis, gallstone pancreatitis with elevated liver enzymes. Status post laparoscopic cholecystectomy. Liver enzymes improving along with pancreatitis. Abdomen remains distended with some diffuse abdominal discomfort. General surgery following 3. Acute hyperkalemia correct with medications and with bicarb drip. 4. Type 2 diabetes mellitus stable sugars 5. Hypertension with stable blood pressure 6. Hyponatremia sodium improved to 130. Continue hold off on her hydrochlorothiazide.
--- NOTE | 2018-05-28 17:07 | CON.PCM_ITS ---
Consultation - Renal 05/28/18 PCP/ Referring MD: Requesting physician: [] Primary care physician: Taylor Alvarenga MD Reason for Consultation:: acute on CKD stage 4. hyponatremia - History of Present Illness History of Present Illness: 78-year-old female known to me with CKD stage IV due to diabetes followed in the outpatient office presents with 3 week history of abdominal pain, right upper quadrant with nausea and vomiting. She was diagnosed with cholecystitis, acute gallstone pancreatitis with elevated liver enzymes. She underwent laparoscopic cholecystectomy on May 27. Creatinine on admission was 2.3 increased to 2.7 today. She has metabolic acidosis with hyperkalemia. Her sodium level was low at 125 improved to 130 today with IV hydration. Her hydrochlorothiazide was discontinued. She has a history of diabetes mellitus type 2 along with hypertension. She has been feeling well postoperatively and was ready to go home this morning, up walking the hallway until her found her unresponsive. She was evaluated for stroke and neurology was consulted. She transferred from [facility] to telemetry floor. She was treated for her high potassium with Kayexalate and was started on a bicarbonate drip for her metabolic acidosis today. Currently she denies any nausea or vomiting. She does have abdominal distention and discomfort diffusely. She admits to flatus. She did have toast thismorning for breakfast. Family and spouse is at bedside. She appears to be back to her baseline mental status. - Allergies Allergies: Allergies codeine Adverse Reaction (Verified 12/07/17 16:13) Hives pain medications Adverse Reaction (Intermediate, Uncoded 05/26/18 10:13) nausea/vomiting - Current Medications Current Medications: Current Medications Acetaminophen (Tylenol) 650 mg PO Q6H PRN PRN PRN Reason: PAIN Last Admin: 05/28/18 04:23 Dose: 650 mg Allopurinol (Zyloprim) 100 mg PO DAILY [facility] Last Admin: 05/28/18 10:06 Dose: 100 mg Amlodipine Besylate (Norvasc) 5 mg PO DAILY [facility] Last Admin: 05/28/18 10:06 Dose: 5 mg Atenolol (Tenormin (Beta Elvia)) 100 mg PO DAILY [facility] Last Admin: 05/28/18 10:07 Dose: 100 mg Cholecalciferol (Vitamin D) 1,000 unit PO BID [facility] Last Admin: 05/28/18 10:07 Dose: 1,000 unit Dextrose (D50w Syringe) 0 gm IV X1 PRN; Protocol PRN Reason: Hypoglycemia Last Admin: 05/27/18 02:42 Dose: 12.5 gm Glucagon () 1 mg IM .X1 PRN PRN Reason: Hypoglycemia Hydralazine HCl (Apresoline Iv) 5 mg IV Q6H PRN PRN PRN Reason: BLOOD PRESSURE Sodium Bicarbonate 150 meq/ (Dextrose) 1,150 mls @ 75 mls/hr IV .[id number] [facility] Last Admin: 05/28/18 10:09 Dose: 75 mls/hr Sodium Chloride () 1,000 mls @ 50 mls/hr IV .Q20H [facility] Last Admin: 05/28/18 16:07 Dose: Not Given Insulin Human Lispro (Humalog Kwikpen (Bkc)) 0 unit SQ ACHS [facility] PRN Reason: Protocol Last Admin: 05/28/18 16:14 Dose: 2 u Morphine Sulfate () 0.5 - 1 mg IV Q3H PRN PRN PRN Reason: SEVERE PAIN (6-10/10) Nutritional Formula (Lactose Free) (Ensure Enlive) 120 ml PO 4X/DAY [facility] Last Admin: 05/28/18 12:42 Dose: 120 ml Ondansetron HCl (Zofran) 4 mg IV Q8H PRN PRN PRN Reason: NAUSEA Pantoprazole Sodium (Protonix) 40 mg PO DAILY [facility] Last Admin: 05/28/18 10:07 Dose: 40 mg Sodium Chloride () 5 - 30 ml IV UD PRN PRN Reason: SALINE FLUSH Last Admin: 05/26/18 11:56 Dose: 10 ml Tramadol HCl (Ultram) 50 mg PO BID PRN PRN PRN Reason: MODERATE PAIN (4-5/10) - Social History Smoking Status: Never smoker Review of Systems Constitutional: Denies: Anorexia, Chills, Fever, Weakness Eyes: Denies: Blurred vision HEENT: Denies: Head Aches Cardiovascular: Denies: Chest Pain, Edema Respiratory: Reports: Cough. Denies: Shortness of Breath Gastrointestinal: Reports: Abdominal Pain, - - +flatus. Denies: Constipation, Diarrhea, Nausea, Vomiting Genitourinary: Denies: Dysuria, Retention Skin: Denies: Rash Neurological: Reports: - - Episode of confusion and mental status change earlier today.. Denies: Balance problems, Tremor, Seizures Psychiatric: Denies: Anxiety, Depression Hematologic/ Lymphatic: Reports: Anemia - Physical Exam General: Alert, Oriented x3, Cooperative, No apparent distress HEENT: PERRLA, EOMI Oral: Moist Mucosa Neck: Supple Lungs: Clear to auscultation Cardiovascular: Regular rate Abdomen: Bowel Sounds Present, Soft, Hypoactive Bowel Sounds, Distended, Tender Extremities: No edema Skin: No rashes Musculoskeletal: No Muscle Wasting Neurological: Cranial nerves II-XII grossly intact, Motor Exam 5/5 strength throughout Psych/Mental Status: Normal Affect, Appropriate, Alert and oriented to time, place, person, mood and affect Vital Signs Temp Pulse Resp BP Pulse Ox 98.7 F 98 16 121/69 H 95 05/28/18 13:50 05/28/18 15:15 05/28/18 13:50 05/28/18 13:50 05/28/18 13:50 Oxygen Flow Rate (L/min) 4 Oxygen Delivery Method Room Air Weight: 73.799 kg Body Mass Index (BMI) 29.0 Finger Stick Blood Glucose 159 Intake and Output for Last 24 Hours 05/26/18 05/27/18 05/28/18 23:59 23:59 23:59 Intake Total 883 / 883 2873 / 2873 851 / 851 Output Total 600 / 600 650 / 650 300 / 300 Balance 283 / 283 2223 / 2223 551 / 551 Laboratory Tests Past 24 Hrs 05/28/18 05/28/18 05/28/18 06:30 06:30 11:45 WBC 9.1 RBC 2.81 L Hgb 9.4 L Hct 28.3 L MCV 100.7 H MCH 33.5 H MCHC 33.2 RDW 13.3 RDW Differential 47.2 H Plt Count 196 MPV 11.0 Immature Gran % (Auto) 0.300 Neut % (Auto) 75.8 H Lymph % (Auto) 14.9 L [place] % (Auto) 8.9 Eos % (Auto) 0.0 Baso % (Auto) 0.1 Absolute Neuts (auto) 6.9 Absolute Lymphs (auto) 1.35 Total Counted Not Reportable Sodium 130 L 130 L Potassium 5.5 H 5.2 H Chloride 104 102 Carbon Dioxide 14.0 L 16.0 L Anion Gap 12 12 BUN 46 H 47 H Creatinine 2.66 H 2.77 H Estim Creat Clear Calc 14.23 13.67 Est GFR (MDRD) Af Amer 22 L 21 L Est GFR (MDRD) Non-Af 19 L 18 L BUN/Creatinine Ratio 17.3 17.0 Glucose 209 H 214 H Calcium 7.6 L 7.8 L Total Bilirubin 0.70 AST 215 H ALT 108 H Alkaline Phosphatase 204 H Total Protein 5.5 L Albumin 2.0 L Globulin 3.5 Albumin/Globulin Ratio 0.6 L POC Glucose 05/28/18 05/28/18 05/27/18 16:13 06:57 21:29 POC Glucose 297 H 217 H 275 H Clinical Impression(s) from Imaging Studies Brain CT 05/28/18 08:59 IMPRESSION: 1. Chronic involutional and ischemic changes of the brain. 2. No acute intracranial abnormality/acute CVA demonstrated. N.B. : The above information has been verbally conveyed by Jovita Bell MD to Donita Toscano, Referring Physician, on 05/28/2018 09:39:01 (ET). Electronically Signed: Jovita Bell MD at 9:36 EDT Tel , Service support , Brain MRI 05/28/18 09:46 IMPRESSION: Moderate periventricular senescent changes with no evidence of acute intracranial bleed, mass or ischemia. Electronically Signed: Chris Waldron DO at 14:58 EDT , Service support , Assessment/Plan 1. Acute on CKD stage IV with underlying diabetic nephropathy. Baseline creatinine 2.23 increased to 2.77 today. She is nonoliguric without uremic symptoms. Suspect prerenal event causing the acute renal failure. We will continue to monitor renal function. Continue with IV hydration since patient with decreased oral intake with recent surgery. 2. Acute cholecystitis, gallstone pancreatitis with elevated liver enzymes. Status post laparoscopic cholecystectomy. Liver enzymes improving along with pancreatitis. Abdomen remains distended with some diffuse abdominal discomfort. General surgery following 3. Acute hyperkalemia correct with medications and with bicarb drip. 4. Type 2 diabetes mellitus stable sugars 5. Hypertension with stable blood pressure 6. Hyponatremia sodium improved to 130. Continue hold off on her hydrochlorothiazide.
[2018-05-28] MEDS: 0.9% Normal Saline 1,000 ML 50 ML IV (21:48)
[2018-05-28 21:51] LABS: Bedside Glucose 269 mg/dL (70-110)
[2018-05-29] VITALS (10 sets, daily range): BP systolic 123–139; BP diastolic 53–60; PULSE 65–85; RESP 16–18; TEMP 36.7–37.1; O2SAT 96–98
[2018-05-29 06:50] LABS: Bedside Glucose 194 mg/dL (70-110)
[2018-05-29 06:55] LABS: Absolute Lymphocyte Count 1.35 X10^3/ul (0.83-4.51); Absolute Neutrophil Count 6.6 X10^3/uL (2.0-7.7); Basophil# 0.01 X10^3/uL; Basophil% 0.1 % (0-1); Eosinophil# 0.06 X10^3/uL; Eosinophils% 0.7 % (0-5); Hematocrit 28.1 % (37-47); Hemoglobin 9.4 g/dl (12.0-15.0); Lymphocyte # 1.35 X10^3/ul (4.0); Lymphocyte % 15.4 % (19-41); Mean Corp Hgb Conc 33.5 g/gl (32-36); Mean Corpuscular Volume 98.6 fL (81-99); Mean Platelet Vol. 10.7 fl (6.2-12.0); Monocyte# 0.69 X10^3/uL; Monocyte% 7.9 % (0-10); Neutrophil # 6.64 X10^3/uL (2.7-7.7); Neutrophil % 75.7 % (47-70); Platelet Count 202 K/mm3 (150-450); RBC Distribution Width SD 50.3 fl (35.1-43.9); Red Blood Count 2.85 M/mm3 (4.2-5.4); White Blood Count 8.8 K/mm3 (4.4-11.0)
[2018-05-29 07:09] LABS: POSITIVE COUNT NO; POSITIVE DIFFERENTIAL NO; POSITIVE MORPHOLOGY NO
[2018-05-29 07:45] LABS: BUN 51 mg/dL (7-18); BUN/Creat Ratio 21.6 RATIO (10-20); Calcium,Total 7.4 mg/dL (8.5-10.1); Chloride 99 mmol/L (98-107); Creatinine, Serum 2.36 mg/dL (0.55-1.02); EST Glomerular Filtration Rate 21 mL/min (>60); Est Glom Filt Rate - Afr Amer 26 mL/min (>60); Estimated Creatinine Clearance 16.04 ml/min; Glucose 182 mg/dL (74-106); Phosphorus 4.2 mg/dL (2.5-4.9); Potassium 4.3 mmol/L (3.5-5.1); Sodium Level 132 mmol/L (136-145)
[2018-05-29] MEDS: Insulin Lispro 100 UNIT/ML INSULN.PEN SQ ×4 (07:53→22:50)
[2018-05-29] MEDS: Atenolol 100 MG Tablet PO (07:54)
[2018-05-29] MEDS: Allopurinol 100 MG Tablet PO (07:55)
[2018-05-29] MEDS: Pantoprazole Sodium 40 MG Tablet PO (07:55)
[2018-05-29] MEDS: amLODIPine 5 MG Tablet PO (07:55)
[2018-05-29] MEDS: Docusate Sodium 100 MG Capsule PO (07:58)
[2018-05-29] MEDS: Acetaminophen 325 MG Tablet 650 MG PO ×2 (10:55→22:07)
--- NOTE | 2018-05-29 11:23 | PCM.PN.SRG ---
Subjective: Patient seems to be back to baseline. Alert and oriented ?3 patient states that she is tolerating liquids urinating well and actually had a bowel movement. Objective: Abdomen is soft and nontender slightly distended - Physical Exam Vital Signs Temp Pulse Resp BP Pulse Ox 98.0 F 76 16 139/53 H 98 05/29/18 07:48 05/29/18 07:48 05/29/18 07:48 05/29/18 07:48 05/29/18 07:48 Oxygen Flow Rate (L/min) 4 Oxygen Delivery Method Room Air Weight: 162 lb 11.183 oz Body Mass Index (BMI) 29.0 Finger Stick Blood Glucose 159 Intake and Output for Last 24 Hours 05/27/18 05/28/18 05/29/18 23:59 23:59 23:59 Intake Total 2873 / 2873 2898 / 2898 1188 / 1188 Output Total 650 / 650 500 / 500 400 / 400 Balance 2223 / 2223 2398 / 2398 788 / 788 Laboratory Tests Past 24 Hrs 05/28/18 05/29/18 05/29/18 11:45 05:45 05:45 WBC 8.8 RBC 2.85 L Hgb 9.4 L Hct 28.1 L MCV 98.6 MCH 33.0 H MCHC 33.5 RDW 14.0 RDW Differential 50.3 H Plt Count 202 MPV 10.7 Immature Gran % (Auto) 0.200 Neut % (Auto) 75.7 H Lymph % (Auto) 15.4 L [place] % (Auto) 7.9 Eos % (Auto) 0.7 Baso % (Auto) 0.1 Absolute Neuts (auto) 6.6 Absolute Lymphs (auto) 1.35 Total Counted Not Reportable Sodium 130 L 132 L Potassium 5.2 H 4.3 Chloride 102 99 Carbon Dioxide 16.0 L 18.0 L Anion Gap 12 BUN 47 H 51 H Creatinine 2.77 H 2.36 H Estim Creat Clear Calc 13.67 16.04 Est GFR (MDRD) Af Amer 21 L 26 L Est GFR (MDRD) Non-Af 18 L 21 L BUN/Creatinine Ratio 17.0 21.6 H Glucose 214 H 182 H Calcium 7.8 L 7.4 L Phosphorus 4.2 Albumin 2.0 L POC Glucose 05/29/18 05/28/18 05/28/18 06:42 21:33 16:13 POC Glucose 194 H 269 H 297 H Medical Necessity - Tobacco Use Smoking Status: Never smoker Assessment/Plan Most likely patient will be ready for discharge tomorrow. Renal is involved and we are monitoring creatinine at this time.
[2018-05-29 11:46] LABS: Bedside Glucose 378 mg/dL (70-110)
--- NOTE | 2018-05-29 12:23 | PCM.PN.HOSP ---
Subjective: Patient was seen and examined. Feels better. Had a bowel movement today. Denies fever or chills. Sat out of chair for breakfast, walked Objective: Physical exam: General: Alert, Oriented x3, Cooperative HEENT: Atraumatic, PERRLA, EOMI, Normocephalic Oral: Moist Mucosa Neck: Supple, No JVD, Negative Carotid Bruits Lungs: Clear to auscultation, Normal air movement Cardiovascular: Regular rate, Regular Rhythm, Normal S1, Normal S2, No murmurs Abdomen: Laparoscopic dressings on anterior abdomen, dry, clean, intact, Bowel Sounds Present, Soft, Tender - in the RUQ and upper abdomen without guarding or RBT, BS present Extremities: No edema Skin: No rashes Musculoskeletal: No Tenderness to Palpation of Joints or Extremities Lymphatic: No Cervical, Supraclavicular, or Inguinal Adenopathy Neurological: Cranial nerves II-XII grossly intact, Neuro grossly intact Psych/Mental Status: Normal Affect, Appropriate Vitals/I&O's: Vital Signs Temp Pulse Resp BP Pulse Ox 98.0 F 76 16 139/53 H 98 05/29/18 07:48 05/29/18 07:48 05/29/18 07:48 05/29/18 07:48 05/29/18 07:48 Oxygen Flow Rate (L/min) 4 Oxygen Delivery Method Room Air Weight: 73.799 kg Body Mass Index (BMI) 29.0 Finger Stick Blood Glucose 159 Intake and Output for Last 24 Hours 05/27/18 05/28/18 05/29/18 23:59 23:59 23:59 Intake Total 2873 / 2873 2898 / 2898 1188 / 1188 Output Total 650 / 650 500 / 500 400 / 400 Balance 2223 / 2223 2398 / 2398 788 / 788 Laboratory Results 05/28/18 16:13: POC Glucose 297 H 05/28/18 21:33: POC Glucose 269 H 05/29/18 05:45: Sodium 132 L, Potassium 4.3, Chloride 99, Carbon Dioxide 18.0 L, BUN 51 H, Creatinine 2.36 H, Estim Creat Clear Calc 16.04, Est GFR (MDRD) Af Amer 26 L, Est GFR (MDRD) Non-Af 21 L, BUN/Creatinine Ratio 21.6 H, Glucose 182 H, Calcium 7.4 L, Phosphorus 4.2, Albumin 2.0 L 05/29/18 05:45: WBC 8.8, RBC 2.85 L, Hgb 9.4 L, Hct 28.1 L, MCV 98.6, MCH 33.0 H, MCHC 33.5, RDW 14.0, RDW Differential 50.3 H, Plt Count 202, MPV 10.7, Immature Gran % (Auto) 0.200, Neut % (Auto) 75.7 H, Lymph % (Auto) 15.4 L, [place] % (Auto) 7.9, Eos % (Auto) 0.7, Baso % (Auto) 0.1, Absolute Neuts (auto) 6.6, Absolute Lymphs (auto) 1.35, Total Counted Not Reportable 05/29/18 06:42: POC Glucose 194 H 05/29/18 11:31: POC Glucose 378 H Current Medications Acetaminophen (Tylenol) 650 mg PO Q6H PRN PRN PRN Reason: PAIN Last Admin: 05/29/18 10:55 Dose: 650 mg Allopurinol (Zyloprim) 100 mg PO DAILY [facility] Last Admin: 05/29/18 07:55 Dose: 100 mg Amlodipine Besylate (Norvasc) 5 mg PO DAILY [facility] Last Admin: 05/29/18 07:55 Dose: 5 mg Atenolol (Tenormin (Beta Elvia)) 100 mg PO DAILY [facility] Last Admin: 05/29/18 07:54 Dose: 100 mg Cholecalciferol (Vitamin D) 1,000 unit PO BID [facility] Last Admin: 05/29/18 07:55 Dose: 1,000 unit Dextrose (D50w Syringe) 0 gm IV X1 PRN; Protocol PRN Reason: Hypoglycemia Last Admin: 05/27/18 02:42 Dose: 12.5 gm Docusate Sodium (Colace) 100 mg PO DAILY [facility] Last Admin: 05/29/18 07:58 Dose: 100 mg Glucagon () 1 mg IM .X1 PRN PRN Reason: Hypoglycemia Hydralazine HCl (Apresoline Iv) 5 mg IV Q6H PRN PRN PRN Reason: BLOOD PRESSURE Sodium Bicarbonate 150 meq/ (Dextrose) 1,150 mls @ 75 mls/hr IV .[id number] [facility] Last Admin: 05/29/18 00:53 Dose: 75 mls/hr Sodium Chloride () 1,000 mls @ 50 mls/hr IV .Q20H [facility] Last Admin: 05/28/18 21:48 Dose: 50 mls/hr Insulin Human Lispro (Humalog Kwikpen (Bkc)) 0 unit SQ ACHS [facility] PRN Reason: Protocol Last Admin: 05/29/18 11:42 Dose: 3 u Morphine Sulfate () 0.5 - 1 mg IV Q3H PRN PRN PRN Reason: SEVERE PAIN (6-10/10) Nutritional Formula (Lactose Free) (Ensure Enlive) 120 ml PO 4X/DAY [facility] Last Admin: 05/29/18 07:58 Dose: Not Given Ondansetron HCl (Zofran) 4 mg IV Q8H PRN PRN PRN Reason: NAUSEA Pantoprazole Sodium (Protonix) 40 mg PO DAILY [facility] Last Admin: 05/29/18 07:55 Dose: 40 mg Sodium Chloride () 5 - 30 ml IV UD PRN PRN Reason: SALINE FLUSH Last Admin: 05/26/18 11:56 Dose: 10 ml Tramadol HCl (Ultram) 50 mg PO BID PRN PRN PRN Reason: MODERATE PAIN (4-5/10) Medical Necessity - Tobacco Use Smoking Status: Never smoker Assessment/Plan 78-year-old female with past medical history of hypertension, type II DM on insulin, complicated with proteinuria, CKD stage IV follows up with nephrology, Dr. Pearson in the outpatient comes in with a three-week complained of right upper quadrant pain that goes across the upper abdomen. 1. Syncopal episode, likely vasovagal, CT scan of brain and MRI of brain were negative for acute stroke, patient back to baseline 2. POD #2, s/p laparoscopic cholecystectomy, for acute abdominal pain secondary to acute cholelithiasis, further management per general surgery 3. Hyperkalemia, resolved, s/p Kayexalate treatment, off Lisinopril, likely secondary to CKD 4. Hypoglycemia, secondary to previous insulin and NPO status, resolved 5. Elevated liver function test, secondary to cholelithiasis, multiple gallstones and gallbladder, improving 6. Elevated lipase likely related to cholelithiasis, less likely acute pancreatitis, resolving 7. Acute on chronic hypotonic hyponatremia, likely diuretic induced, off HCTZ, sodium is improving, now 132 from 130, nephro consulted. 8. Non-anion gap metabolic acidosis, improving on sodium bicarbonate drip, nephro following 9. Type II DM, BS fairly controlled, BS are uncontrolled, will resume home insulin regimen 10. Hypertension, controlled, off home hydrochlorothiazide, lisinopril decreased to 20mg daily, on amlodipine, atenolol, as needed hydralazine for systolic blood pressure more than 160 11. 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 12. History of gout, on allopurinol 13. DVT Ppx- Per primary service Code Visit Inpatient E&M: 98833 Subs Hosp L2
[2018-05-29 16:26] LABS: Bedside Glucose 426 mg/dL (70-110)
[2018-05-29] MEDS: 0.9% Normal Saline 1,000 ML 50 ML IV (17:48)
[2018-05-29] MEDS: Insulin Lispro 100 UNIT/ML INSULN.PEN 12 UNIT SC (21:44)
[2018-05-30] VITALS (7 sets, daily range): BP systolic 137–151; BP diastolic 53–68; PULSE 60–69; RESP 16–18; TEMP 36.6–36.9; O2SAT 95–98
[2018-05-30 00:11] LABS: Bedside Glucose 459 mg/dL (70-110)
[2018-05-30 00:15] LABS: Bedside Glucose 427 mg/dL (70-110)
[2018-05-30 03:40] LABS: Bedside Glucose 330 mg/dL (70-110)
[2018-05-30] MEDS: Acetaminophen 325 MG Tablet 650 MG PO (04:08)
[2018-05-30 06:47] LABS: Bedside Glucose 348 mg/dL (70-110)
[2018-05-30 07:02] LABS: AST(SGOT) 141 U/L (15-37); Alanine Aminotransfer ALT/SGPT 83 U/L (13-56); Alkaline Phosphatase 209 U/L (45-117); BUN 50 mg/dL (7-18); BUN/Creat Ratio 19.7 RATIO (10-20); Bilirubin, Direct 0.44 mg/dL (0.00-0.30); Calcium,Total 7.6 mg/dL (8.5-10.1); Chloride 95 mmol/L (98-107); Creatinine, Serum 2.54 mg/dL (0.55-1.02); EST Glomerular Filtration Rate 20 mL/min (>60); Est Glom Filt Rate - Afr Amer 24 mL/min (>60); Globulin 3.4 g/dL (2.2-4.2); Glucose 341 mg/dL (74-106); Phosphorus 3.7 mg/dL (2.5-4.9); Potassium 4.3 mmol/L (3.5-5.1); Protein, Total 5.4 g/dL (6.4-8.2); Sodium Level 127 mmol/L (136-145)
[2018-05-30 07:16] LABS: Bedside Glucose 492 mg/dL (70-110)
[2018-05-30 07:16] LABS: Bedside Glucose 492 mg/dL (70-110)
--- NOTE | 2018-05-30 07:55 | PCM.PN.SRG ---
Subjective: Tolerating diet, still feels bloated positive passing gas small bowel movement - Physical Exam General: Alert, Oriented x3, Cooperative, No apparent distress Lungs: Normal air movement Cardiovascular: Regular rate Abdomen: Soft, Distended - Mild, Tender - Appropriately near incisions, dressed clean dry and intact, no guarding or rebound Extremities: No clubbing, No cyanosis Neurological: Cranial nerves II-XII grossly intact Psych/Mental Status: Normal Affect Vital Signs Temp Pulse Resp BP Pulse Ox 97.9 F 64 16 145/61 H 98 05/30/18 04:09 05/30/18 07:32 05/30/18 04:09 05/30/18 04:09 05/30/18 04:09 Oxygen Flow Rate (L/min) 4 Oxygen Delivery Method Room Air Weight: 162 lb 11.183 oz Body Mass Index (BMI) 29.0 Finger Stick Blood Glucose 159 Intake and Output for Last 24 Hours 05/28/18 05/29/18 05/30/18 23:59 23:59 23:59 Intake Total 2898 / 2898 4149 / 4149 402 / 402 Output Total 500 / 500 1000 / 1000 Balance 2398 / 2398 3149 / 3149 402 / 402 Laboratory Tests Past 24 Hrs 05/30/18 06:20 Sodium 127 L Potassium 4.3 Chloride 95 L Carbon Dioxide 20.0 L BUN 50 H Creatinine 2.54 H Estim Creat Clear Calc 14.90 Est GFR (MDRD) Af Amer 24 L Est GFR (MDRD) Non-Af 20 L BUN/Creatinine Ratio 19.7 Glucose 341 H Calcium 7.6 L Phosphorus 3.7 Total Bilirubin 0.70 Direct Bilirubin 0.44 H AST 141 H ALT 83 H Alkaline Phosphatase 209 H Total Protein 5.4 L Albumin 2.0 L Globulin 3.4 POC Glucose 05/30/18 05/30/18 05/30/18 06:38 03:31 00:07 POC Glucose 348 H 330 H 427 H 05/29/18 05/29/18 05/29/18 22:42 21:23 21:20 POC Glucose 459 H* 492 H* 492 H* 05/29/18 05/29/18 16:16 11:31 POC Glucose 426 H 378 H Medical Necessity - Tobacco Use Smoking Status: Never smoker Assessment/Plan 78-year-old female status post laparoscopic cholecystectomy and liver biopsy postop day 3, diabetes, chronic kidney disease, chronic hyponatremia 1. Patient is tolerating diet and passing flatus did have a small bowel movement however still complains of feeling bloated will give her some MiraLAX. Okay for discharge today from a surgical standpoint. Liver function improving await liver biopsy. Will discussed with hospitalist as well as nephrology. 2. Chronic kidney disease--on bicarb drip per nephrology. Appreciate their input. Possible DC today if okay with other services. Follow-up with me in 2 weeks Massiel Puente M.D. Pager: [phone] [facility] [address] [place] [address], [facility], [address] [place] [address] Office: [phone]
[2018-05-30] MEDS: Polyethylene Glycol 3350 17 GM PACKET PO (08:40)
[2018-05-30] MEDS: Insulin Lispro 100 UNIT/ML INSULN.PEN SQ ×2 (08:42→12:01)
[2018-05-30] MEDS: Insulin Lispro 100 UNIT/ML INSULN.PEN 20 UNIT SC ×2 (08:42→12:01)
[2018-05-30] MEDS: Pantoprazole Sodium 40 MG Tablet PO (08:44)
[2018-05-30] MEDS: Docusate Sodium 100 MG Capsule PO (08:44)
[2018-05-30] MEDS: amLODIPine 5 MG Tablet PO (08:44)
[2018-05-30] MEDS: Atenolol 100 MG Tablet PO (08:44)
[2018-05-30] MEDS: Allopurinol 100 MG Tablet PO (08:44)
[2018-05-30 12:11] LABS: Bedside Glucose 292 mg/dL (70-110)
--- NOTE | 2018-05-30 13:37 | PCM.PN.HOSP ---
Subjective: Patient seen and examined. She complains of increased leakage from cholecystectomy site. She denies any fever chills or any abdominal pain, any nausea vomiting or diarrhea. She has not had any syncopal episodes since. She was able to ambulate around today also hold onto her walker today. Review of systems otherwise negative. Labs and vitals reviewed. Vitals/I&O's: Vital Signs Temp Pulse Resp BP Pulse Ox 98.4 F 66 18 137/68 H 95 05/30/18 10:09 05/30/18 12:14 05/30/18 10:09 05/30/18 10:09 05/30/18 10:09 Oxygen Flow Rate (L/min) 4 Oxygen Delivery Method Room Air Weight: 162 lb 11.183 oz Body Mass Index (BMI) 29.0 Finger Stick Blood Glucose 159 Intake and Output for Last 24 Hours 05/28/18 05/29/18 05/30/18 23:59 23:59 23:59 Intake Total 2898 / 2898 4149 / 4149 402 / 402 Output Total 500 / 500 1000 / 1000 Balance 2398 / 2398 3149 / 3149 402 / 402 General: Alert, Oriented x3, Cooperative, No apparent distress HEENT: Atraumatic, PERRLA, EOMI, Normocephalic Oral: Moist Mucosa Neck: Supple, No JVD, Negative Carotid Bruits Lungs: Clear to auscultation, Normal air movement, No rhonchi, No wheeze, No rales Cardiovascular: Regular rate, No murmurs Abdomen: Bowel Sounds Present, Soft, Non Tender, Non-Distended, - - soaked dressing over RUQ area; no tenderness or erythema or differential warmth. well healing laparoscopic wounds Extremities: No clubbing, No cyanosis, No edema, Capillary Refill Less than 3 Seconds Skin: No rashes, No breakdown Musculoskeletal: No Tenderness to Palpation of Joints or Extremities Lymphatic: No Cervical, Supraclavicular, or Inguinal Adenopathy Neurological: Cranial nerves II-XII grossly intact, Motor Exam 5/5 strength throughout Psych/Mental Status: Normal Affect, Appropriate, Alert and oriented to time, place, person, mood and affect Laboratory Results 05/29/18 16:16: POC Glucose 426 H 05/29/18 21:20: POC Glucose 492 H* 05/29/18 21:23: POC Glucose 492 H* 05/29/18 22:42: POC Glucose 459 H* 05/30/18 00:07: POC Glucose 427 H 05/30/18 03:31: POC Glucose 330 H 05/30/18 06:20: Sodium 127 L, Potassium 4.3, Chloride 95 L, Carbon Dioxide 20.0 L, BUN 50 H, Creatinine 2.54 H, Estim Creat Clear Calc 14.90, Est GFR (MDRD) Af Amer 24 L, Est GFR (MDRD) Non-Af 20 L, BUN/Creatinine Ratio 19.7, Glucose 341 H, Calcium 7.6 L, Phosphorus 3.7, Total Bilirubin 0.70, Direct Bilirubin 0.44 H, AST 141 H, ALT 83 H, Alkaline Phosphatase 209 H, Total Protein 5.4 L, Albumin 2.0 L, Globulin 3.4 05/30/18 06:38: POC Glucose 348 H 05/30/18 11:57: POC Glucose 292 H Current Medications Acetaminophen (Tylenol) 650 mg PO Q6H PRN PRN PRN Reason: PAIN Last Admin: 05/30/18 04:08 Dose: 650 mg Allopurinol (Zyloprim) 100 mg PO DAILY [facility] Last Admin: 05/30/18 08:44 Dose: 100 mg Amlodipine Besylate (Norvasc) 5 mg PO DAILY [facility] Last Admin: 05/30/18 08:44 Dose: 5 mg Atenolol (Tenormin (Beta Elvia)) 100 mg PO DAILY [facility] Last Admin: 05/30/18 08:44 Dose: 100 mg Cholecalciferol (Vitamin D) 1,000 unit PO BID [facility] Last Admin: 05/30/18 08:45 Dose: 1,000 unit Dextrose (D50w Syringe) 0 gm IV X1 PRN; Protocol PRN Reason: Hypoglycemia Last Admin: 05/27/18 02:42 Dose: 12.5 gm Docusate Sodium (Colace) 100 mg PO DAILY [facility] Last Admin: 05/30/18 08:44 Dose: 100 mg Glucagon () 1 mg IM .X1 PRN PRN Reason: Hypoglycemia Hydralazine HCl (Apresoline Iv) 5 mg IV Q6H PRN PRN PRN Reason: BLOOD PRESSURE Sodium Bicarbonate 150 meq/ (Dextrose) 1,150 mls @ 75 mls/hr IV .[id number] [facility] Last Admin: 05/29/18 17:47 Dose: 75 mls/hr Sodium Chloride () 1,000 mls @ 50 mls/hr IV .Q20H [facility] Last Admin: 05/29/18 17:48 Dose: 50 mls/hr Insulin Glargine (Lantus (Bkc)) 40 units SC BREAKFAST [facility] Last Admin: 05/30/18 08:43 Dose: 40 units Insulin Glargine (Lantus (Bkc)) 10 units SC X1 ONE Stop: 05/30/18 16:31 Last Admin: 05/29/18 16:57 Dose: 10 u Insulin Human Lispro (Humalog Kwikpen (Bkc)) 20 unit SC LUNCH [facility] Last Admin: 05/30/18 12:01 Dose: 20 units Insulin Human Lispro (Humalog Kwikpen (Bkc)) 20 unit SC BREAKFAST [facility] Last Admin: 05/30/18 08:42 Dose: 20 units Insulin Human Lispro (Humalog Kwikpen (Bkc)) 0 unit SQ ACHS [facility] PRN Reason: Protocol Last Admin: 05/30/18 12:01 Dose: 6 units Insulin Human Lispro (Humalog Kwikpen (Bkc)) 12 unit SC QPM [facility] Last Admin: 05/29/18 21:44 Dose: 12 units Morphine Sulfate () 0.5 - 1 mg IV Q3H PRN PRN PRN Reason: SEVERE PAIN (6-10/10) Nutritional Formula (Lactose Free) (Glucerna Shake) 120 ml PO TIDCM [facility] Last Admin: 05/30/18 12:03 Dose: Not Given Ondansetron HCl (Zofran) 4 mg IV Q8H PRN PRN PRN Reason: NAUSEA Pantoprazole Sodium (Protonix) 40 mg PO DAILY [facility] Last Admin: 05/30/18 08:44 Dose: 40 mg Sodium Chloride () 5 - 30 ml IV UD PRN PRN Reason: SALINE FLUSH Last Admin: 05/26/18 11:56 Dose: 10 ml Tramadol HCl (Ultram) 50 mg PO BID PRN PRN PRN Reason: MODERATE PAIN (4-5/10) Medical Necessity - Tobacco Use Smoking Status: Never smoker Assessment/Plan 1. Syncopal episode resolved. Hasnt recurred likely due to vasovagal episode CT and MRI of brain were negative patient is AO x 3 and conversant 2. Acute cholecycsitis s/p cholecystectomy today is POD 4. complains of increased leakage over site of cholecystectomy in RUQ region. has soaked dressing in that region management as per general surgery 3. Chronic hyponatremia Na is 127 today; was 122 on admisson. Likely worsened by diuretics. nephrology on board will monitor 4. Chronic nongap acidosis resolved with administration of bicarb drip nephro on board 5. Dm2 blood sugars very poorly controlled has been in the high 200s and 300s received insulin 10IU once yesterday; home dose is insulin determir 40IU; will resume today on lispro 20IU for breakfast and lunch and 10IU for dinner ISS accuchecks ACHS 6. Elelvated liver enzymes due to cholelithiasis resolving. Had some liver fibrosis and mild ascites seen at time of surgery, per surgeon. liver biopsy is pending. To follow up with PCP. trending down. will monitor 7. Hyperkalemia: likely due to lisinopril. Lisinopril on hold. Will DC lisinopril permanently 8. CKD IV: received bicarb drip o/a of non gap acidosis. Lisinopril dced o/a of hyperkalemia. Will monitor. Will benefit from oral sodium bicarbonate. 9. Gout: On allopurinol. 10. Hypertension: Fairly controlled. Systolic in the 130s. Will DC lisinopril and hydrochlorothiazide per nephro. On amlodipine and atenolol. 11. DVT prophylaxis: per primary team Disposition: ok to dc from medical standpoint. [facility] informed Code Visit Inpatient E&M: 99075 Subs Hosp L2
--- NOTE | 2018-05-30 15:04 | PCM.PN.BLA ---
Progress Note Patient did have some serous leakage from her right lateral trocar site. This area was prepped draped in usual sterile fashion with Betadine and U stitch with 3-0 nylon was placed on both right lateral incisions to prevent leakage of ascites which was seen intraoperatively. These were then dressed with a Tegaderm. Patient tolerated procedure well. Discussed with patient that her liver biopsy will not be processed until tomorrow at the earliest. Okay for discharge per nephrology and patient will also follow-up with nephrology as an outpatient.
--- NOTE | 2018-05-30 16:13 | PCM.DC.GB ---
Discharge Diet: 1800 Calorie Control Diet Discharge Activity: May not drive while taking narcotic pain medications. May shower in (days): 1 Call your doctor if your incision/area has: Continuous Slow Oozing, Sudden Increased Bleeding, Increased Pain/ Swelling, Increased Redness, Foul Smelling Discharge, Swelling at the incision site Call your doctor if you observe: Fever of 101 or Higher Remove Dressing in (days):: 1 Additional Instructions: Discussed with patient that she may also need to see GI doctor for her liver fibrosis. Allergies/Adverse Reactions: Allergies codeine Adverse Reaction (Verified 12/07/17 16:13) Hives pain medications Adverse Reaction (Intermediate, Uncoded 05/26/18 10:13) nausea/vomiting Medications to take at Discharge Atenolol [Tenormin (beta marilyn)] 100 mg PO DAILY 12/05/17 Allopurinol 100 mg PO DAILY 05/26/18 Insulin Lispro [Humalog] 20 unit SC LUNCH 05/26/18 amlodipine 5 mg tablet 5 mg PO DAILY 05/26/18 cholecalciferol (vitamin D3) 1,000 unit capsule 1,000 unit PO BID 05/26/18 cinnamon bark 500 mg capsule 1 cap PO DAILY cap 05/26/18 glucosamine HCl 750 mg tablet 750 mg PO DAILY tab 05/26/18 insulin detemir (U-100) 100 unit/mL (3 mL) subcutaneous pen 40 unit SC BREAKFAST ml 05/26/18 insulin lispro (U-100) 100 unit/mL subcutaneous pen 10 unit SC QPM 05/26/18 insulin lispro (U-100) 100 unit/mL subcutaneous pen 20 unit SC BREAKFAST 05/26/18 magnesium 64 mg (magnesium chloride) tablet,delayed release 64 mg PO DAILY tab 05/26/18 multivitamin tablet 1 tab PO DAILY 05/26/18 selenium 100 mcg tablet 100 mcg PO DAILY 05/26/18 sour bolivar extract 1,000 mg capsule 1 mg PO TID PRN cap 05/26/18 Tramadol HCl [Ultram] 50 mg PO BID PRN PRN 5 Days #10 tablet 05/27/18 The following prescriptions were given: Tramadol HCl [Ultram] 50 mg PO BID PRN PRN 5 Days #10 tablet PRN Reason: Pain Primary Care Physician: Taylor Alvarenga MD [Primary Care Provider] - Test Results: Test results from this visit will be discussed in further detail at your follow-up appointment, if applicable. Please Follow Up With: Massiel Puente MD - call [phone] with any concerns after 5PM/weekend When: call office [phone] for f/u in 1 week Please Follow Up With: Irma Pearson DO Proposed Discharge Date: 05/30/18
[2018-05-31 11:05] LABS: Bedside Glucose 154 mg/dL (70-110)
== END 2018-05-30 17:55 | disposition home or self-care (01) | DRG 418 ==
LOC: MS3 05-27 05:10 → PCU 05-28 09:44
PROVIDERS: Anesthesiology; Internal Medicine; Internal Medicine Nephrology; Admitting Provider Surgery; Family Provider Family Medicine; PCP Family Medicine; Visit Provider Surgery
PROC: (CPT 47610; principal; 2018-05-27 10:50)
DX: K80.00 Calculus of gallbladder with acute cholecystitis without obstruction (principal); E87.1 Hypo-osmolality and hyponatremia; E87.2 Acidosis; N18.4 Chronic kidney disease, stage 4 (severe); N17.9 Acute kidney failure, unspecified; R55 Syncope and collapse; E11.22 Type 2 diabetes mellitus with diabetic chronic kidney disease; I12.9 Hypertensive chronic kidney disease with stage 1 through stage 4 chronic kidney disease, or unspecified chronic kidney disease; Z79.4 Long term (current) use of insulin; E87.5 Hyperkalemia; M10.9 Gout, unspecified; K74.0 Hepatic fibrosis
CPT/HCPCS: 36415; 70450; 70551; 74300; 80048; 80053; 80069; 80076; 82962; 83036; 83540; 83550; 83690; 83735; 83930; 84300; 85025; 88304; 88307; 88313; 93005; 97162; 97166; 97530; 97535; 97802; 99251; J7030; A4216; G0463; J2405

== ENCOUNTER → 2018-05-27 15:32 | Outpatient (CLI) | payer MEDICARE, SELFPAY | PROVIDERS: Family Provider Family Medicine; PCP Family Medicine; Visit Provider Surgery | DX: Z01.818 Encounter for other preprocedural examination (principal) | CPT/HCPCS: 74300; 76000 ==

== ENCOUNTER 2018-06-04 20:09 | Emergency (ER) | payer MEDICARE, SELFPAY ==
[2018-06-04 20:09] VITALS: BP 152/60; PULSE 73; RESP 18; TEMP 37; O2SAT 98; BMI 31.8
[2018-06-04 21:27] LABS: Anion Gap 10 (5-15); BUN 60 mg/dL (7-18); BUN/Creat Ratio 26.2 RATIO (10-20); Calcium,Total 7.4 mg/dL (8.5-10.1); Chloride 97 mmol/L (98-107); Creatinine, Serum 2.29 mg/dL (0.55-1.02); EST Glomerular Filtration Rate 22 mL/min (>60); Est Glom Filt Rate - Afr Amer 27 mL/min (>60); Estimated Creatinine Clearance 17.29 ml/min; Glucose 199 mg/dL (74-106); Potassium 4.8 mmol/L (3.5-5.1); Sodium Level 130 mmol/L (136-145)
--- NOTE | 2018-06-04 21:59 | ED.VISSUMM ---
- ER Visit Summary Date of Service: 06/04/18 Chief Complaint: Bilateral lower extremity swelling History of Present Illness: The patient is a 78 F who is status post laparoscopic cholecystectomy last week who presents with bilateral leg swelling. She states she has been sitting significantly patient's family states she sits the entire day. She denies any shortness of breath, difficulty breathing, pleuritic chest pain. She has ecchymosis of the abdomen where she has been injecting herself with insulin. She does have type 1 diabetes. Of note she was on Lovenox and most likely cause of her subcutaneous bleeding. She denies fever, chills night sweats. Denies any HEENT symptoms. She denies any urologic symptoms. There is no history of heart failure. She does have history of renal failure. Daughter stated that she was sent in by Dr. Jarrett to assess her kidney function. Based on what I was told patient has not been elevating her legs and has been sitting with little to no activity. Physical Examination: Vital signs were noted and remarkable for blood pressure 152/60. She has pitting edema both lower extremities without any asymmetry, discoloration, leg vein distention, palpable coarseness on suspicion deep venous system. Heart is regular. Lungs are clear to auscultation with good air bilaterally. Test Results: BMP reveals sodium 130 which is improvement from prior. Creatinine is 2.29 prior was 2.50. Glucose is 199. Emergency Department Course and Treatment: Patient was informed in my professional opinion this represents pedal edema. Family states she was sent in specifically to assess her kidney function. A BMP was obtained for this reason. Treatment Plan: Appropriate treatment for dependent edema Disposition: Discharged home with family Impression: Bilateral dependent edema End-stage renal disease Hyponatremia Hyperglycemia type I diabetic This note was generated with [employer] dictation software. It may contain incorrect words, spelling, and punctuation that were not noted in review of the chart prior to signing ED Disposition - Plan for ED Patient: Disposition: Home or Assisted Living Chief Complaint: Edema Instructions: ED Lymphedema Referrals: Taylor Alvarenga MD [Primary Care Provider] - 1 Week if not improving
[2018-06-04 22:14] VITALS: BP 145/54; PULSE 65; RESP 15; O2SAT 99
== END 2018-06-04 22:15 | disposition home or self-care (01) ==
PROVIDERS: Emergency Provider Emergency Medicine; Family Provider Family Medicine; PCP Family Medicine
DX: R60.9 Edema, unspecified (principal); E87.1 Hypo-osmolality and hyponatremia; I12.0 Hypertensive chronic kidney disease with stage 5 chronic kidney disease or end stage renal disease; N18.6 End stage renal disease; E10.65 Type 1 diabetes mellitus with hyperglycemia
CPT/HCPCS: 36415; 80048; 99282

== ENCOUNTER → 2018-06-07 14:22 | Outpatient (CLI) | payer MEDICARE, SELFPAY ==
[2018-06-07 15:05] LABS: International Normalized Ratio 1.3; Prothrombin Time (Protime)PT. 16.2 SECONDS (11.7-14.9)
[2018-06-07 15:06] LABS: AST(SGOT) 144 U/L (15-37); Alanine Aminotransfer ALT/SGPT 80 U/L (13-56); Albumin, Serum 2.2 g/dL (3.2-5.0); Alkaline Phosphatase 263 U/L (45-117); Globulin 3.6 g/dL (2.2-4.2); Partial Thromboplast Time 36.3 Seconds (24.1-36.2); Protein, Total 5.8 g/dL (6.4-8.2)
== END ==
PROVIDERS: Family Provider Family Medicine; PCP Family Medicine; Visit Provider Surgery
DX: K74.0 Hepatic fibrosis (principal); K85.90 Acute pancreatitis without necrosis or infection, unspecified; K81.9 Cholecystitis, unspecified
CPT/HCPCS: 36415; 80076; 85610; 85730

== ENCOUNTER → 2018-06-08 17:34 | Outpatient (CLI) | payer MEDICARE, SELFPAY ==
[2018-06-11 09:02] LABS: AFP, Tumor Marker 9.9 ng/mL (0.0-8.3); Anti-Smooth Muscle ABS 31 Units (0-19); HEPATITIS B SURFACE AG Negative (Negative); Hep C Antibodies 0.1 s/co ratio (0.0-0.9)
[2018-06-11 09:03] LABS: ANTINUCLEAR ANTIBODIES DIRECT Positive (Negative); Anti-Mitochondrial AB <20.0 Units (0.0-20.0)
== END ==
PROVIDERS: Family Provider Family Medicine; PCP Family Medicine; Visit Provider Internal Medicine Gastroenterology
DX: K74.60 Unspecified cirrhosis of liver (principal)
CPT/HCPCS: 36415; 82105; 83516; 86038; 86803; 87340

== ENCOUNTER 2018-06-09 12:02 | Outpatient (RCR) | payer MEDICARE, SELFPAY | END 2018-07-03 23:59 | LOC: DC 12:02 | PROVIDERS: Family Provider Family Medicine; PCP Family Medicine; Visit Provider Internal Medicine Nephrology | DX: E11.22 Type 2 diabetes mellitus with diabetic chronic kidney disease (principal); N25.81 Secondary hyperparathyroidism of renal origin; D63.1 Anemia in chronic kidney disease; M10.9 Gout, unspecified; I12.9 Hypertensive chronic kidney disease with stage 1 through stage 4 chronic kidney disease, or unspecified chronic kidney disease; N18.4 Chronic kidney disease, stage 4 (severe); Z71.3 Dietary counseling and surveillance ==

== ENCOUNTER → 2018-06-10 17:04 | Outpatient (CLI) | payer MEDICARE, SELFPAY ==
[2018-06-10 17:49] LABS: Anion Gap 9 (5-15); BUN 58 mg/dL (7-18); BUN/Creat Ratio 26.2 RATIO (10-20); Calcium,Total 7.8 mg/dL (8.5-10.1); Chloride 102 mmol/L (98-107); Creatinine, Serum 2.21 mg/dL (0.55-1.02); EST Glomerular Filtration Rate 23 mL/min (>60); Est Glom Filt Rate - Afr Amer 28 mL/min (>60); Glucose 160 mg/dL (74-106); Potassium 5.1 mmol/L (3.5-5.1); Sodium Level 135 mmol/L (136-145)
== END ==
PROVIDERS: Family Provider Family Medicine; PCP Family Medicine; Visit Provider Internal Medicine Nephrology
DX: N18.4 Chronic kidney disease, stage 4 (severe) (principal)
CPT/HCPCS: 36415; 80048

== ENCOUNTER → 2018-06-15 09:57 | Outpatient (CLI) | payer MEDICARE, SELFPAY ==
[2018-06-16 16:10] LABS: Albumin 2.6 g/dL (2.9-4.4); Alpha-1-Globulins 0.2 g/dL (0.0-0.4); Alpha-2-Globulins 0.8 g/dL (0.4-1.0); Gamma Globulin 1.3 g/dL (0.4-1.8); Immunoglobulin A 256 mg/dL (64-422); Immunoglobulin G 1292 mg/dL (700-1600); Immunoglobulin M 72 mg/dL (26-217); PROEL- TOTAL PROTEIN 5.9 g/dL (6.0-8.5)
[2018-06-17 08:54] LABS: IMMUNOFIXATION RESULT,S Comment: (.)
== END ==
PROVIDERS: Family Provider Family Medicine; PCP Family Medicine; Visit Provider Internal Medicine Gastroenterology
DX: R18.8 Other ascites (principal); K74.60 Unspecified cirrhosis of liver
CPT/HCPCS: 36415; 82784; 84165; 86334

== ENCOUNTER → 2018-06-20 16:41 | Outpatient (CLI) | payer MEDICARE, SELFPAY ==
[2018-06-20 17:39] LABS: Albumin, Serum 2.6 g/dL (3.2-5.0); BUN 66 mg/dL (7-18); BUN/Creat Ratio 29.2 RATIO (10-20); Calcium,Total 8.2 mg/dL (8.5-10.1); Chloride 100 mmol/L (98-107); Creatinine, Serum 2.26 mg/dL (0.55-1.02); EST Glomerular Filtration Rate 22 mL/min (>60); Est Glom Filt Rate - Afr Amer 27 mL/min (>60); Glucose 59 mg/dL (74-106); Phosphorus 4.4 mg/dL (2.5-4.9); Potassium 5.1 mmol/L (3.5-5.1); Sodium Level 132 mmol/L (136-145)
[2018-06-22 16:10] LABS: PROEL- A/G Ratio 0.8 (0.7-1.7); PROEL- Albumin 2.9 g/dL (2.9-4.4); PROEL- Alpha-1 Globulin 0.2 g/dL (0.0-0.4); PROEL- Alpha-2 Globulin 0.8 g/dL (0.4-1.0); PROEL- Gamma Globulin 1.5 g/dL (0.4-1.8); PROEL- Globulin, Total 3.5 g/dL (2.2-3.9); PROEL- TOTAL PROTEIN 6.4 g/dL (6.0-8.5)
== END ==
PROVIDERS: Family Provider Family Medicine; PCP Family Medicine; Visit Provider Internal Medicine Gastroenterology
DX: R18.8 Other ascites (principal); K74.60 Unspecified cirrhosis of liver
CPT/HCPCS: 36415; 80069; 84165

== ENCOUNTER → 2018-07-06 12:01 | Outpatient (CLI) | payer MEDICARE, SELFPAY ==
[2018-07-06 14:25] LABS: AST(SGOT) 206 U/L (15-37); Alanine Aminotransfer ALT/SGPT 100 U/L (13-56); Albumin, Serum 2.9 g/dL (3.2-5.0); Alkaline Phosphatase 229 U/L (45-117); Amylase 75 U/L (25-115); Anion Gap 7 (5-15); BUN 48 mg/dL (7-18); BUN/Creat Ratio 21.3 RATIO (10-20); Bilirubin, Direct 0.46 mg/dL (0.00-0.30); Calcium,Total 8.4 mg/dL (8.5-10.1); Chloride 103 mmol/L (98-107); Creatinine, Serum 2.25 mg/dL (0.55-1.02); EST Glomerular Filtration Rate 23 mL/min (>60); Est Glom Filt Rate - Afr Amer 27 mL/min (>60); Globulin 4.7 g/dL (2.2-4.2); Glucose 118 mg/dL (74-106); Lipase 939 U/L (73-393); Potassium 5.7 mmol/L (3.5-5.1); Protein, Total 7.6 g/dL (6.4-8.2); Sodium Level 128 mmol/L (136-145)
[2018-07-06 14:34] LABS: Hemoglobin A1c 6.4 % (4.2-6.3)
== END ==
PROVIDERS: Family Provider Family Medicine; PCP Family Medicine; Visit Provider Family Medicine
DX: E11.9 Type 2 diabetes mellitus without complications (principal); R10.9 Unspecified abdominal pain
CPT/HCPCS: 36415; 80048; 80076; 82150; 83036; 83690

== ENCOUNTER → 2018-07-08 16:14 | Outpatient (CLI) | payer MEDICARE, SELFPAY ==
[2018-07-08 17:44] LABS: Potassium 4.7 mmol/L (3.5-5.1)
== END ==
PROVIDERS: Family Provider Family Medicine; PCP Family Medicine; Referring Provider Family Medicine; Visit Provider Family Medicine
DX: E87.5 Hyperkalemia (principal)
CPT/HCPCS: 36415; 84132

== ENCOUNTER → 2018-07-11 16:54 | Outpatient (CLI) | payer MEDICARE, SELFPAY ==
[2018-07-11 17:59] LABS: Albumin, Serum 2.4 g/dL (3.2-5.0); BUN 52 mg/dL (7-18); BUN/Creat Ratio 23.7 RATIO (10-20); Calcium,Total 7.7 mg/dL (8.5-10.1); Chloride 104 mmol/L (98-107); Creatinine, Serum 2.19 mg/dL (0.55-1.02); EST Glomerular Filtration Rate 23 mL/min (>60); Est Glom Filt Rate - Afr Amer 28 mL/min (>60); Glucose 258 mg/dL (74-106); Phosphorus 4.8 mg/dL (2.5-4.9); Potassium 3.9 mmol/L (3.5-5.1); Sodium Level 134 mmol/L (136-145)
== END ==
PROVIDERS: Family Provider Family Medicine; PCP Family Medicine; Referring Provider Internal Medicine Nephrology; Visit Provider Internal Medicine Nephrology
DX: N18.4 Chronic kidney disease, stage 4 (severe) (principal)
CPT/HCPCS: 36415; 80069

== ENCOUNTER → 2018-07-15 14:30 | Outpatient (CLI) | payer MEDICARE, SELFPAY ==
[2018-07-15 16:28] LABS: AST(SGOT) 143 U/L (15-37); Alanine Aminotransfer ALT/SGPT 73 U/L (13-56); Albumin, Serum 2.5 g/dL (3.2-5.0); Alkaline Phosphatase 221 U/L (45-117); Bilirubin, Direct 0.33 mg/dL (0.00-0.30); Globulin 4.5 g/dL (2.2-4.2)
[2018-07-15 16:36] LABS: International Normalized Ratio 1.3; Prothrombin Time (Protime)PT. 16.6 SECONDS (11.7-14.9)
[2018-07-15 16:38] LABS: Partial Thromboplast Time 41.5 Seconds (24.1-36.2)
[2018-07-21 13:35] LABS: AFP, Tumor Marker 9.1 ng/mL (0.0-8.3); Ceruloplasmin 21.9 mg/dL (19.0-39.0)
[2018-07-21 14:07] LABS: ANTINUCLEAR ANTIBODIES DIRECT Positive (Negative); Anti-Centromere B Ab <0.2 AI (0.0-0.9); Anti-Chromatin <0.2 AI (0.0-0.9); Anti-Jo <0.2 AI (0.0-0.9); Anti-Scleroderma-70 AB <0.2 AI (0.0-0.9); SJOGREN'S Anti-SS-A test < 0.2 AI (0.0-0.9); SJOGREN'S Anti-SS-B test < 0.2 AI (0.0-0.9); Smith Ab <0.2 AI (0.0-0.9)
[2018-07-22 09:54] LABS: Alpha Antitrypsin Serum 117 mg/dL (90-200); Anti-dsDNA Ab 3 IU/mL (0-9)
== END ==
PROVIDERS: Family Provider Family Medicine; PCP Family Medicine; Referring Provider Internal Medicine Gastroenterology; Visit Provider Internal Medicine Gastroenterology
DX: K74.60 Unspecified cirrhosis of liver (principal)
CPT/HCPCS: 36415; 80076; 82103; 82105; 82390; 85610; 85730; 86038; 86225; 86235

== ENCOUNTER → 2018-08-12 16:33 | Outpatient (CLI) | payer MEDICARE, SELFPAY ==
[2018-08-12 17:57] LABS: AST(SGOT) 47 U/L (15-37); Alanine Aminotransfer ALT/SGPT 44 U/L (13-56); Albumin, Serum 2.9 g/dL (3.2-5.0); Alkaline Phosphatase 167 U/L (45-117); Anion Gap 9 (5-15); BUN 95 mg/dL (7-18); BUN/Creat Ratio 36.7 RATIO (10-20); Bilirubin, Direct 0.25 mg/dL (0.00-0.30); Chloride 107 mmol/L (98-107); Creatinine, Serum 2.59 mg/dL (0.55-1.02); EST Glomerular Filtration Rate 19 mL/min (>60); Est Glom Filt Rate - Afr Amer 23 mL/min (>60); Glucose 213 mg/dL (74-106); Potassium 5.6 mmol/L (3.5-5.1); Protein, Total 6.9 g/dL (6.4-8.2); Sodium Level 135 mmol/L (136-145)
== END ==
PROVIDERS: Family Provider Family Medicine; PCP Family Medicine; Referring Provider Internal Medicine Gastroenterology; Visit Provider Internal Medicine Gastroenterology
DX: N18.4 Chronic kidney disease, stage 4 (severe) (principal); K74.60 Unspecified cirrhosis of liver
CPT/HCPCS: 36415; 80048; 80076; 84100

== ENCOUNTER → 2018-08-19 16:44 | Outpatient (CLI) | payer MEDICARE, SELFPAY ==
[2018-08-19 17:37] LABS: Anion Gap 13 (5-15); BUN 100 mg/dL (7-18); BUN/Creat Ratio 41.8 RATIO (10-20); Calcium,Total 7.9 mg/dL (8.5-10.1); Chloride 110 mmol/L (98-107); Creatinine, Serum 2.39 mg/dL (0.55-1.02); EST Glomerular Filtration Rate 21 mL/min (>60); Est Glom Filt Rate - Afr Amer 25 mL/min (>60); Glucose 92 mg/dL (74-106); Potassium 4.3 mmol/L (3.5-5.1); Sodium Level 140 mmol/L (136-145)
== END ==
PROVIDERS: Family Provider Family Medicine; PCP Family Medicine; Referring Provider Internal Medicine Nephrology; Visit Provider Internal Medicine Nephrology
DX: E87.5 Hyperkalemia (principal)
CPT/HCPCS: 36415; 80048

== ENCOUNTER → 2018-09-09 12:52 | Outpatient (CLI) | payer MEDICARE, SELFPAY ==
[2018-09-09 14:10] LABS: Hematocrit 34.7 % (37-47); Hemoglobin 11.4 g/dl (12.0-15.0); Mean Corp Hgb Conc 32.9 g/gl (32-36); Mean Corpuscular Hgb 34.3 pg (27.0-32.0); Mean Corpuscular Volume 104.5 fL (81-99); Mean Platelet Vol. 10.4 fl (6.2-12.0); Platelet Count 137 K/mm3 (150-450); RBC Distribution Width CV 15.4 % (11.6-14.6); RBC Distribution Width SD 58.6 fl (35.1-43.9); Red Blood Count 3.32 M/mm3 (4.2-5.4); Scan Indicated on CBC? Y/N NO; White Blood Count 11.9 K/mm3 (4.4-11.0)
[2018-09-09 14:43] LABS: Albumin, Serum 2.7 g/dL (3.2-5.0); BUN 95 mg/dL (7-18); BUN/Creat Ratio 45.9 RATIO (10-20); Chloride 110 mmol/L (98-107); Creatinine, Serum 2.07 mg/dL (0.55-1.02); EST Glomerular Filtration Rate 25 mL/min (>60); Est Glom Filt Rate - Afr Amer 30 mL/min (>60); Glucose 70 mg/dL (74-106); Phosphorus 4.9 mg/dL (2.5-4.9); Potassium 3.8 mmol/L (3.5-5.1); Sodium Level 141 mmol/L (136-145)
[2018-09-09 14:53] LABS: Vitamin D,25 Hydroxy 39.1 ng/mL (29.95-100.01)
== END ==
PROVIDERS: Family Provider Family Medicine; PCP Family Medicine; Referring Provider Internal Medicine Nephrology; Visit Provider Internal Medicine Nephrology
DX: N18.4 Chronic kidney disease, stage 4 (severe) (principal)
CPT/HCPCS: 36415; 80069; 82306; 83970; 85027

== ENCOUNTER → 2018-10-17 09:55 | Outpatient (CLI) | payer MEDICARE, SELFPAY ==
--- NOTE | 2018-10-17 10:00 | RAD_ITS ---
STUDY: X-RAY - LUMBAR SPINE REASON FOR EXAM: Female, 78 years old. Severe low back pain radiating down the legs to the knees. Limited ability to move. TECHNIQUE: 5 view(s) of the lumbar spine were obtained. COMPARISON: None FINDINGS: There is a mild wedge-shaped compression fracture deformity of the T12 vertebral body which appears to be chronic. Normal lumbar lordosis. There is no substantial scoliosis. There is a normal alignment of the vertebrae. There is multilevel spondylosis and there are Schmorl's nodes in several vertebral endplates.. There is disc space narrowing at the L2-3 and L3-4 levels.. 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 The soft tissue structures are unremarkable. RAD/L/S Spine Min 4 Views IMPRESSION: Multilevel degenerative changes. Mild compression fracture deformity of the T12 vertebral body appears to be chronic. No demonstrated acute fracture or subluxation. Electronically Signed: Marshall Bell MD at 0:23 EST , Service support ,
[2018-10-17 12:14] LABS: AST(SGOT) 35 U/L (15-37); Alanine Aminotransfer ALT/SGPT 33 U/L (13-56); Albumin, Serum 2.8 g/dL (3.2-5.0); Alkaline Phosphatase 139 U/L (45-117); Anion Gap 11 (5-15); BUN 75 mg/dL (7-18); BUN/Creat Ratio 38.5 RATIO (10-20); Calcium,Total 8.5 mg/dL (8.5-10.1); Chloride 109 mmol/L (98-107); Creatinine, Serum 1.95 mg/dL (0.55-1.02); EST Glomerular Filtration Rate 27 mL/min (>60); Est Glom Filt Rate - Afr Amer 32 mL/min (>60); Globulin 3.6 g/dL (2.2-4.2); Glucose 128 mg/dL (74-106); Potassium 4.1 mmol/L (3.5-5.1); Protein, Total 6.4 g/dL (6.4-8.2); Sodium Level 142 mmol/L (136-145)
== END ==
PROVIDERS: Family Provider Family Medicine; PCP Family Medicine; Referring Provider Internal Medicine Gastroenterology; Visit Provider Internal Medicine Gastroenterology
DX: S39.012A Strain of muscle, fascia and tendon of lower back, initial encounter (principal); E87.5 Hyperkalemia; K74.60 Unspecified cirrhosis of liver
CPT/HCPCS: 36415; 72110; 80048; 80076

== ENCOUNTER → 2018-10-18 16:32 | Outpatient (CLI) | payer MEDICARE, SELFPAY | PROVIDERS: Family Provider Family Medicine; PCP Family Medicine; Referring Provider Internal Medicine Gastroenterology; Visit Provider Internal Medicine Gastroenterology | DX: K75.4 Autoimmune hepatitis (principal) | CPT/HCPCS: 36415 ==

== ENCOUNTER → 2018-10-21 10:11 | Outpatient (CLI) | payer MEDICARE, SELFPAY ==
--- NOTE | 2018-10-21 10:13 | US_ITS ---
STUDY: ABDOMINAL ULTRASOUND - RIGHT UPPER QUADRANT REASON FOR VISIT: Female, 78 years old. Cirrhosis TECHNIQUE: Ultrasound evaluation of the right upper quadrant was performed with real-time and static klein-scale imaging. TECHNICAL QUALITY: Adequate. COMPARISON: None. FINDINGS: Liver: The liver measures 16.8 cm. There is fatty echogenicity of the liver. The bile ducts are within normal limits. There is hepatic color flow. The direction of portal flow is hepatopetal. There is no demonstrated mass lesion. Gallbladder: Status post cholecystectomy Common Bile Duct (C.B.D.): The common bile duct measures 7 mm. Pancreas: Normal size of the head, body and tail of the pancreas. There is increased echogenicity of the pancreas. Ductal dilatation is noted measuring 7 mm. There is no demonstrated pancreatic mass or cyst. Right Kidney: Normal size of the right kidney. The right kidney measures 9.4 x 3.9 x 4.7 cm. Slightly increased echogenicity of the renal cortex. The right cortex measures 1.2 cm. There is no demonstrated renal mass or cyst. There is no right hydronephrosis. US/Abdomen Limited IMPRESSION: Fatty liver. Status post cholecystectomy. Dilated common bile duct and pancreatic duct. Increased cortical echogenicity of the right kidney may be due to medical renal disease. Electronically Signed: Luciano Ross DO at 23:58 EST Tel [phone], Service support ,
--- OUTSIDE RECORDS SUMMARY | 2018-12-25 18:01 | XMS RPT_ITS ---
:1940 Author Organization OHIP Support Name Relationship Address Phone VALERIA JOHNSON Unavailable [address] + [place] [address] JOHNSON, ELKE Unavailable [address] + [place] [address] R Unavailable Unavailable Unavailable JOHNSON, VALERIA Unavailable [address] + [place] [address] JOHNSON, ELKE Unavailable Unavailable + R Unavailable Unavailable Unavailable JOHNSON, VALERIA Unavailable [address] + [place] [address] JOHNSON ELKE Unavailable Unavailable + R Unavailable Unavailable Unavailable JOHNSON, VALERIA Unavailable [address] + [place] [address] JOHNSON, ELKE Unavailable Unavailable + R Unavailable Unavailable Unavailable JOHNSON, VALERIA Unavailable [address] + [place] [address] JOHNSON, ELKE Unavailable Unavailable + R Unavailable Unavailable Unavailable JOHNSON, VALERIA Unavailable [address] + [place] [address] JOHNSON, ELKE Unavailable Unavailable + R Unavailable Unavailable Unavailable JOHNSON, VALERIA Unavailable [address] + [place] [address] JOHNSON, ELKE Unavailable Unavailable + R Unavailable Unavailable Unavailable JOHNSON, VALERIA Unavailable [address] + [place] [address] JOHNSON, ELKE Unavailable Unavailable + R Unavailable Unavailable Unavailable JOHNSON, VALERIA Unavailable [address] + [place] [address] JOHNSON, ELKE Unavailable Unavailable + R Unavailable Unavailable Unavailable JOHNSON, VALERIA Unavailable [address] + [place] [address] JOHNSON, ELKE Unavailable Unavailable + R Unavailable Unavailable Unavailable JOHNSON, VALERIA Unavailable [address] + [place] [address] JOHNSON, ELKE Unavailable Unavailable + R Unavailable Unavailable Unavailable JOHNSON, VALERIA Unavailable [address] + [place] [address] JOHNSON, ELKE Unavailable Unavailable + R Unavailable Unavailable Unavailable JOHNSON, VALERIA Unavailable [address] + [place] [address] JOHNSON, ELKE Unavailable Unavailable + R Unavailable Unavailable Unavailable JOHNSON, VALERIA Unavailable [address] + [place] [address] JOHNSON, ELKE Unavailable Unavailable + R Unavailable Unavailable Unavailable JOHNSON, VALERIA Unavailable [address] + [place] [address] JOHNSON, ELKE Unavailable Unavailable + R Unavailable Unavailable Unavailable JOHNSON, VALERIA Unavailable [address] + [place] [address] JOHNSON, ELKE Unavailable Unavailable + R Unavailable Unavailable Unavailable Johnson, Elke Unavailable Unavailable + JOHNSON, VALERIA Unavailable [address] + [place] [address] R Unavailable Unavailable Unavailable Johnson, Elke Unavailable Unavailable + JOHNSON, VALERIA Unavailable [address] + [place] [address] R Unavailable Unavailable Unavailable Johnson, Elke Unavailable Unavailable + JOHNSON, VALERIA Unavailable [address] + [place] [address] R Unavailable Unavailable Unavailable Johnson, Elke Unavailable . + [place] [address] JOHNSON, VALERIA Unavailable [address] + [place] [address] R Unavailable Unavailable Unavailable Johnson, Elke Unavailable Unavailable + [place] [address] JOHNSON, VALERIA Unavailable [address] + [place] [address] R Unavailable Unavailable Unavailable Johnson, Elke Unavailable Unavailable + [place] [address] JOHNSON, VALERIA Unavailable [address] + [place] [address] R Unavailable Unavailable Unavailable JOHNSON, VALERIA Unavailable [address] + [place] [address] R Unavailable Unavailable Unavailable Johnson, Elke Unavailable Unavailable + [place] [address] JOHNSON, VALERIA Unavailable [address] + [place] [address] R Unavailable Unavailable Unavailable JOHNSON, VALERIA Unavailable [address] + [place] [address] JOHNSON, ELKE Unavailable Unavailable + R Unavailable Unavailable Unavailable JOHNSON, VALERIA Unavailable [address] + [place] [address] JOHNSON, ELKE Unavailable Unavailable + R Unavailable Unavailable Unavailable JOHNSON, VALERIA Unavailable [address] + [place] [address] JOHNSON, ELKE Unavailable Unavailable + R Unavailable Unavailable Unavailable JOHNSON, VALERIA Unavailable [address] + [place] [address] R Unavailable Unavailable Unavailable JOHNSON, VALERIA Unavailable [address] + [place] [address] R Unavailable Unavailable Unavailable JOHNSON, VALERIA Unavailable [address] + [place] [address] R Unavailable Unavailable Unavailable JOHNSON, VALERIA Unavailable [address] + [place] [address] R Unavailable Unavailable Unavailable JOHNSON, VALERIA Unavailable [address] + [place] [address] R Unavailable Unavailable Unavailable JOHNSON, VALERIA Unavailable [address] + [place] [address] R Unavailable Unavailable Unavailable JOHNSON, VALERIA Unavailable [address] + [place] [address] R Unavailable Unavailable Unavailable JOHNSON, VALERIA Unavailable [address] + [place] [address] JOHNSON ELKE Unavailable Unavailable + R Unavailable Unavailable Unavailable JOHNSON, VALERIA Unavailable [address] + [place] [address] R Unavailable Unavailable Unavailable JOHNSON, VALERIA Unavailable [address] + [place] [address] R Unavailable Unavailable Unavailable JOHNSON, VALERIA Unavailable [address] + [place] [address] R Unavailable Unavailable Unavailable JOHNSON, VALERIA Unavailable [address] + [place] [address] R Unavailable Unavailable Unavailable JOHNSON, VALERIA Unavailable [address] + [place] [address] R Unavailable Unavailable Unavailable JOHNSON, VALERIA Unavailable [address] + [place] [address] R Unavailable Unavailable Unavailable JOHNSONVALERIA Unavailable [address] + [place] [address] R Unavailable Unavailable Unavailable JOHNSON, VALERIA Unavailable [address] + [place] [address] R Unavailable Unavailable Unavailable JOHNSON, VALERIA Unavailable [address] + [place] [address] R Unavailable Unavailable Unavailable JOHNSONVALERIA Unavailable [address] + [place] [address] R Unavailable Unavailable Unavailable JOHNSONVALERIA Unavailable [address] + [place] [address] R Unavailable Unavailable Unavailable JOHNSON VALERIA Unavailable [address] + [place] [address] R Unavailable Unavailable Unavailable JOHNSON, VALERIA Unavailable [address] + [place] [address] R Unavailable Unavailable Unavailable JOHNSON VALERIA Unavailable [address] + [place] [address] R Unavailable Unavailable Unavailable JOHNSONVALERIA Unavailable [address] + [place] [address] R Unavailable Unavailable Unavailable JOHNSON, VALERIA Unavailable [address] + [place] [address] R Unavailable Unavailable Unavailable JOHNSON, VALERIA Unavailable [address] + [place] [address] R Unavailable Unavailable Unavailable JOHNSON, VALERIA Unavailable [address] + [place] [address] R Unavailable Unavailable Unavailable JOHNSON, VALERIA Unavailable [address] + [place] [address] R Unavailable Unavailable Unavailable Care Team Providers Name Role Phone Eddy Siu Attending Unavailable Jolliff, Taylor Primary Care Unavailable Jabour, Vincent Referring Unavailable Michel, Irma Consulting Unavailable Jolliff, Taylor Consulting Unavailable Eddy Siu Attending Unavailable Jabour, Vincent Referring Unavailable Jolliff, Taylor Primary Care Unavailable BryantbourEddy Attending Unavailable Jabour, Vincent Referring Unavailable Jolliff, Taylor Primary Care Unavailable Jolliff, Taylor Primary Care Unavailable Dion Mckeon Attending Unavailable MichelYovanyIrma Attending Unavailable Jolliff, Taylor Primary Care Unavailable Michel, Irma Attending Unavailable Jolliff, Taylor Primary Care Unavailable Michel, Irma Referring Unavailable Michel, Irma Attending Unavailable Jolliff, Taylor Primary Care Unavailable Jolliff, Taylor Primary Care Unavailable Michel, Irma Consulting Unavailable Michel, Irma Attending Unavailable Michel, Irma Referring Unavailable Jolliff, Taylor Primary Care Unavailable DENTON HOLLEY Attending Unavailable Jolliff, Taylor Primary Care Unavailable Paco Reardon Attending Unavailable MichelYovanyIrma Attending Unavailable Jolliff, Taylor Primary Care Unavailable Michel Irma Attending Unavailable Jolliff, Taylor Primary Care Unavailable Michel, Irma Referring Unavailable Michel, Irma Attending Unavailable Michel, Irma Referring Unavailable Jolliff, Taylor Primary Care Unavailable Michel, Irma Attending Unavailable Jolliff, Taylor Primary Care Unavailable Michel, Irma Attending Unavailable Michel, Irma Referring Unavailable Jolliff, Taylor Primary Care Unavailable Michel, Irma Attending Unavailable Jolliff, Taylor Primary Care Unavailable Michel, Irma Attending Unavailable Michel, Irma Referring Unavailable Jolliff, Taylor Primary Care Unavailable Michel, Irma Attending Unavailable Michel, Irma Referring Unavailable Jolliff, Taylor Primary Care Unavailable Michel, Irma Attending Unavailable Michel, Irma Referring Unavailable Jolliff, Taylor Primary Care Unavailable Michel, Irma Attending Unavailable Jolliff, Taylor Primary Care Unavailable Michel, Irma Referring Unavailable Michel, Irma Attending Unavailable Jolliff, Taylor Primary Care Unavailable Jolliff, Taylor Attending Unavailable Jolliff, Taylor Primary Care Unavailable Jolliff, Taylor Attending Unavailable Jolliff, Taylor Referring Unavailable Jolliff, Taylor Primary Care Unavailable Robotham, Massiel Attending Unavailable Jolliff, Taylor Referring Unavailable Jolliff, Taylor Primary Care Unavailable Robotham, Massiel Attending Unavailable Robotham, Massiel Referring Unavailable Jolliff, Taylor Primary Care Unavailable Robotham, Massiel Admitting Unavailable Robotham, Massiel Attending Unavailable Jolliff, Taylor Primary Care Unavailable Paintsil, Benson Consulting Unavailable Michel, Irma Consulting Unavailable Robotham, Massiel Admitting Unavailable Paintsil, Benson Attending Unavailable Jolliff, Taylor Primary Care Unavailable Paintsil, Benson Consulting Unavailable Michel, Irma Consulting Unavailable Robotham, Massiel Consulting Unavailable Robotham, Massiel Admitting Unavailable Paintsil, Benson Attending Unavailable Jolliff, Taylor Primary Care Unavailable Paintsil, Benson Consulting Unavailable Michel, Irma Consulting Unavailable Robotham, Massiel Consulting Unavailable Robotham, Massiel Admitting Unavailable Robotham, Massiel Attending Unavailable Jolliff, Taylor Primary Care Unavailable Paintsil, Benson Consulting Unavailable Michel, Irma Consulting Unavailable Robotham, Massiel Consulting Unavailable Robotham, Massiel Admitting Unavailable Paintsil, Benson Attending Unavailable Jolliff, Taylor Primary Care Unavailable Paintsil, Benson Consulting Unavailable Michel, Irma Consulting Unavailable Robotham, Massiel Consulting Unavailable Robotham, Massiel Admitting Unavailable Damion, Greyson Attending Unavailable Jolliff, Taylor Primary Care Unavailable Paintsil, Benson Consulting Unavailable Michel, Irma Consulting Unavailable Kimo, Lesley S. Consulting Unavailable Robotham, Massiel Consulting Unavailable Robotham, Massiel Admitting Unavailable Damion, Greyson Attending Unavailable Jolliff, Taylor Primary Care Unavailable Paintsil, Benson Consulting Unavailable Michel, Irma Consulting Unavailable Kimo, Lesley S. Consulting Unavailable Robotham, Massiel Consulting Unavailable Robotham, Massiel Admitting Unavailable Paintsil, Benson Attending Unavailable Jolliff, Taylor Primary Care Unavailable Paintsil, Benson Consulting Unavailable Michel, Irma Consulting Unavailable Robotham, Massiel Consulting Unavailable Robotham, Massiel Admitting Unavailable Robotham, Massiel Attending Unavailable Jolliff, Taylor Primary Care Unavailable Paintsil, Benson Consulting Unavailable Michel, Irma Consulting Unavailable Robotham, Massiel Consulting Unavailable Robotham, Massiel Admitting Unavailable Korkael, Moon Lois Attending Unavailable Jolliff, Taylor Primary Care Unavailable Paintsil, Benson Consulting Unavailable Michel, Irma Consulting Unavailable Robotham, Massiel Consulting Unavailable Michel, Irma Attending Unavailable Michel, Irma Referring Unavailable Jolliff, Taylor Primary Care Unavailable Jolliff, Taylor Primary Care Unavailable Carlson, Cameron Attending Unavailable Robotham, Massiel Attending Unavailable Jolliff, Taylor Referring Unavailable Jolliff, Taylor Primary Care Unavailable Robotham, Massiel Attending Unavailable Robotham, Massiel Referring Unavailable Jolliff, Taylor Primary Care Unavailable Jabour, Vincent Attending Unavailable Jabour, Vincent Referring Unavailable Jolliff, Taylor Primary Care Unavailable Michel, Irma Attending Unavailable Jolliff, Taylor Primary Care Unavailable Michel, Irma Referring Unavailable Jabour, Vincent Attending Unavailable Jabour, Vincent Referring Unavailable Jolliff, Taylor Primary Care Unavailable Jabour, Vincent Attending Unavailable Jolliff, Taylor Primary Care Unavailable Jabour, Vincent Referring Unavailable Michel, Irma Consulting Unavailable Con, Regan Attending Unavailable Robotham, Massiel Referring Unavailable Con, [place] Attending Unavailable Robotham, Massiel Referring Unavailable Michel, Irma Attending Unavailable Michel, Irma Referring Unavailable Jolliff, Taylor Primary Care Unavailable Jolliff, Taylor Attending Unavailable Jolliff, Taylor Primary Care Unavailable Jolliff, Taylor Attending Unavailable Jolliff, Taylor Referring Unavailable Jolliff, Taylor Primary Care Unavailable Michel, Irma Attending Unavailable Jolliff, Taylor Primary Care Unavailable Michel, Irma Referring Unavailable Jabour, Vincent Attending Unavailable Jabour, Vincent Referring Unavailable Jolliff, Taylor Primary Care Unavailable Jabour, Vincent Attending Unavailable Jolliff, Taylor Primary Care Unavailable Jabour, Vincent Referring Unavailable Michel, Irma Consulting Unavailable Michel, Irma Attending Unavailable Jolliff, Taylor Primary Care Unavailable Michel, Irma Attending Unavailable Jolliff, Taylor Primary Care Unavailable Michel, Irma Referring Unavailable Michel, Irma Attending Unavailable Jolliff, Taylor Primary Care Unavailable Michel, Irma Referring Unavailable PROBLEMS PROBLEMS DATE TYPE CONDITION / CODE ATTENDING STATUS SOURCE 08/08/2018 Unknown 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 / Repository E11.22(ICD-10) 06/24/2018 Unknown R18.8 - Other ascites Brandon, Active [facility] / R18.8(ICD-10) [facility] Repository 06/10/2018 Unknown N18.4 - Chronic kidney Michel Irma Active [facility] disease, stage 4 Community (severe) / Hospital N18.4(ICD-10) Repository 05/30/2018 Unknown G89.18 - Other acute Koram, Moon Active [facility] postprocedural pain / [facility] G89.18(ICD-10) Hospital Repository 07/01/2018 Unknown R94.31 - Abnormal Con, Regan Active [facility] electrocardiogram Community [ECG] [EKG] / Hospital R94.31(ICD-10) Repository 07/01/2018 Unknown I45.10 - Unspecified Con, Regan Active [facility] right bundle-branch Community block / I45.10(ICD-10) Hospital Repository 05/27/2018 Unknown K85.90 - Acute Robotham, Active [facility] pancreatitis without [facility] necrosis or infection, Hospital unspecified / Repository K85.90(ICD-10) 05/27/2018 Unknown K81.9 - Cholecystitis, Robotham, Active [facility] unspecified / [place] Community K81.9(ICD-10) Hospital Repository 05/27/2018 Unknown K80.20 - Calculus of Robotham, Active [facility] gallbladder without [facility] cholecystitis without Hospital obstruction / Repository K80.20(ICD-10) 05/27/2018 Unknown K80.00 - Calculus of Robotham, Active [facility] gallbladder with acute [place] cholecystitis without Hospital obstruction / Repository K80.00(ICD-10) 05/23/2018 Unknown E87.1 - Irma Arredondo Active [facility] Hypo-osmolality and Community hyponatremia / Hospital E87.1(ICD-10) Repository 11/24/2017 Unknown R80.9 - Proteinuria, Michel Irma Active [facility] unspecified / Community R80.9(ICD-10) Hospital Repository PROCEDURES PROCEDURES No Procedure Records FoundRESULTS RESULTS VENOUS DUPLEX LOWER Observed: 10/25/2018 Status: F Source: [place] EXTREMITY 3:49 PM [facility] HOSPITAL REPOSITORY [facility] Cardiovascular Services [address] [facility] [place] [address] Venous Duplex US, Unilateral 10/24/18 1310 MR#: [id number] Acct: [id number] Name: JUN JOHNSON Rep #: [id number] : 1940 78 From: Tomasz Hutchison MD Attending Dr: Status: DEP ER Ordering Dr: Dion Mckeon MD Date: 10/24/18 Location: ED Sex: F C Admitted: Reason For Study: LEG PAIN RIGHT LEFT GSV is normal. CFV is compressible, spontaneous, phasic, CFV is compressible, spontaneous, phasic, competent, and demonstrates normal competent and demonstrates normal augmentation. augmentation. FV is compressible, spontaneous, phasic, competent and demonstrates normal augmentation. POP V is compressible, spontaneous, phasic, competent and demonstrates normal augmentation. T/P Trunk is compressible. PTV is compressible. RT PerV is compressible. Procedure Exam performed portable in ED. A preliminary report was called and/or faxed to ED nurse. Interpretation Summary Deep veins of the right lower extremity are patent and compressible segmentally. There is no evidence of right lower extremity deep vein thrombosis. Valvular competence appears intact within the proximal deep venous system on the right . The right greater saphenous vein appears patent and compressible segmentally. Ordering Physician: Dion Mckeon Referring Physician: Taylor Alvarenga M.D. Performed By: Giselle Vera RVT 10/25/18 1548 Date Tomasz Hutchison MD CC: Taylor Alvarenga MD; Dion Mckeon MD Date Dictated: 10/24/18 1310 Date Transcribed: 10/25/18 1548 Claims Administrator: Signed DISCHARGE INSTRUCTION Observed: 10/24/2018 Status: F Source: [place] 1:36 PM [facility] REPOSITORY [facility] Medical Records Department [address] [place] [address] Discharge Instruction 10/24/18 1335 MR#: [id number] Acct: [id number] Name: JUN JOHNSON Rep #: [id number] : 1940 78 From: Dion Mckeon MD PCP: Taylor Alvarenga MD Status: PRE ER ED Disposition - Plan for ED Patient: Disposition: Home or Assisted Living Chief Complaint: Other, Pain/Inj Instructions: ED Infec Skin Cellulitis Prescriptions: Cephalexin [Keflex] 500 mg PO Q12 #14 cap Referrals: Taylor Alvarenga MD [Primary Care Provider] - What to do if you have Problems For any increased pain, shortness of breath, bleeding, nausea or vomiting, chest pain, or any unexpected problems, contact your Primary Care Provider. Call [facility] ([phone]) or report to the closest Emergency Room. Call 911 if necessary. 10/24/18 1336 <Electronically signed by Dion Mckeon MD> Date Dion Mckeon MD Cosigner Signature (If Indicated): Date CC: Taylor Alvarenga MD EMERGENCY DEPARTMENT Observed: 10/24/2018 Status: F Source: [place] SUMMARY 1:35 PM [facility] HOSPITAL REPOSITORY [facility] Medical Records Department [address] [place] [address] Emergency Department Summary 10/24/18 1309 MR#: [id number] Acct: [id number] Name: JUN JOHNSON Rep #: [id number] : 1940 78 From: Dion Mckeon MD PCP: Taylor Alvarenga MD Status: PRE ER - ER Visit Summary Date of Service: 10/24/18 Chief Complaint: Right lower leg pain History of Present Illness: The patient is a 78 F who has pain in the right lower leg. She noticed it last night and got worse today. His pain is worse with moving and touching her right lower leg. She denies any trauma. No fevers. She uses a walker to get around because of a compression fracture in her back. She does not take any blood thinning medications. She has no history of DVT. Physical Examination: Vitals are reviewed. Right lower leg exam reveals tenderness on the right lateral lower leg. There is no bony tibial tenderness. There is ecchymosis on the mid right lower leg on the lateral side. There is no calf tenderness. There is no popliteal tenderness. No thigh tenderness or knee tenderness. Test Results: Duplex ultrasound negative for DVT Emergency Department Course and Treatment: Duplex ultrasound is negative. Patient may have a contusion, but due to the history of diabetes and the pain I will treat her with Keflex for 7 days. She will keep ice on this area and will follow up with her PCP Treatment Plan: [] Disposition: Discharge Impression: Lower leg pain, right This note was generated with [employer] dictation software. It may contain incorrect words, spelling, and punctuation that were not noted in review of the chart prior to signing ED Disposition - Plan for ED Patient: Chief Complaint: Other, Pain/Inj Referrals: Taylor Alvarenga MD [Primary Care Provider] - What to do if you have Problems For any increased pain, shortness of breath, bleeding, nausea or vomiting, chest pain, or any unexpected problems, contact your Primary Care Provider. Call [employer] [facility] ([phone]) or report to the closest Emergency Room. Call 911 if necessary. 10/24/18 5983 <Electronically signed by Dion Mckeon MD> Date Dion Mckeon MD Cosigner Signature (If Indicated): Date CC: Taylor Alvarenga MD ABDOMEN LIMITED Observed: 10/21/2018 Status: F Source: [place] 10:13 AM [facility] REPOSITORY [facility] Imaging Services [address] [place] [address] Abdomen Limited MR#: [id number] Acct: [id number] Name: JUN JOHNSON Rep #: [id number] : 1940 F 78 From: Luciano Ross DO PCP: Taylor Alvarenga MD Status: REG CLI Study: Abdomen Limited Date of Exam: 10/21/18 Exam# [id number] Ordering Dr: Eddy Siu MD STUDY: ABDOMINAL ULTRASOUND - RIGHT UPPER QUADRANT REASON FOR VISIT: Female, 78 years old. Cirrhosis TECHNIQUE: Ultrasound evaluation of the right upper quadrant was performed with real-time and static klein-scale imaging. TECHNICAL QUALITY: Adequate. COMPARISON: None. FINDINGS: Liver: The liver measures 16.8 cm. There is fatty echogenicity of the liver. The bile ducts are within normal limits. There is hepatic color flow. The direction of portal flow is hepatopetal. There is no demonstrated mass lesion. Gallbladder: Status post cholecystectomy Common Bile Duct (C.B.D.): The common bile duct measures 7 mm. Pancreas: Normal size of the head, body and tail of the pancreas. There is increased echogenicity of the pancreas. Ductal dilatation is noted measuring 7 mm. There is no demonstrated pancreatic mass or cyst. Right Kidney: Normal size of the right kidney. The right kidney measures 9.4 x 3.9 x 4.7 cm. Slightly increased echogenicity of the renal cortex. The right cortex measures 1.2 cm. There is no demonstrated renal mass or cyst. There is no right hydronephrosis. US/Abdomen Limited IMPRESSION: Fatty liver. Status post cholecystectomy. Dilated common bile duct and pancreatic duct. Increased cortical echogenicity of the right kidney may be due to medical renal disease. Electronically Signed: Luciano Ross DO at 23:58 EST Tel [phone], Service support , CC: Taylor Alvarenga MD; Eddy Siu Claims Administrator: Signed BASIC METABOLIC Collected: 10/17/2018 Status: F Source: [place] PROFILE (BMP) 10:01 AM [facility] REPOSITORY TYPE CODE TESTS RESULT OUT OF RANGE REFERENCE UNITS LAB L501.0100 74-106 mg/dL High GLU 128 Result Comment: Fasting Glucose result greater than or equal to 126 mg/dL suggests DIABETES MELLITUS per A.D.A. criteria. Please note revised GLUCOSE reference range effective 2017. LAB L501.1000 7-18 mg/dL High BUN 75 LAB L501.1100 0.55-1.02 mg/dL High CREAT,SERUM 1.95 Result Comment: The validity of the calculated GFR AND GFRAA in patients over 70 years has not been determined. Clinical correlation is essential. LAB L501.1110 >60 mL/min Low EST GFR 27 Result Comment: Non- GFR Calc LAB L501.1115 >60 mL/min Low EST GFR - AA 32 Result Comment: GFR Calc LAB L501.1300 10-20 RATIO High BUN/CRE 38.5 LAB L501.2200 8.5-10.1 mg/dL CA Normal 8.5 LAB L501.5300 136-145 mmol/L NA Normal 142 LAB L501.5600 3.5-5.1 mmol/L K Normal 4.1 LAB L501.5900 98-107 mmol/L High CL 109 LAB L501.6100 21.0-32.0 mmol/L Normal CO2 22.0 LAB L501.6200 5-15 Normal GAP 11 Performed By: #### L500.2500, L500.3400 #### [facility] [address] [place], [place], [id number] LIVER PROFILE Collected: 10/17/2018 Status: F Source: [place] 10:01 AM [facility] REPOSITORY TYPE CODE TESTS RESULT OUT OF RANGE REFERENCE UNITS LAB L501.1500 6.4-8.2 g/dL Normal T PROT 6.4 LAB L501.1800 3.2-5.0 g/dL Low ALB 2.8 LAB L501.1950 2.2-4.2 g/dL Normal GLOB 3.6 LAB L501.4100 15-37 U/L Normal AST 35 LAB L501.4305 45-117 U/L High ALK P 139 LAB L501.4405 13-56 U/L Normal ALT 33 LAB L501.4600 0.20-1.00 mg/dL Normal T BILI 0.50 LAB L501.4700 0.00-0.30 mg/dL Normal D BILI 0.20 Performed By: #### L500.2500, L500.3400 #### [facility] [address] [place], [address] L/S SPINE MIN 4 Observed: 10/17/2018 Status: F Source: HAYTI VIEWS 10:01 AM [facility] REPOSITORY [facility] Imaging Services [address] [place] [address] L/S Spine Min 4 Views MR#: [id number] Acct: [id number] Name: JUN JOHNSON Rep #: [id number] : 1940 F 78 From: Marshall Bell MD PCP: Taylor Alvarenga MD Status: REG CLI Study: L/S Spine Min 4 Views Date of Exam: 10/17/18 Exam# [id number] Ordering Dr: Taylor Alvarenga MD STUDY: X-RAY - LUMBAR SPINE REASON FOR EXAM: Female, 78 years old. Severe low back pain radiating down the legs to the knees. Limited ability to move. TECHNIQUE: 5 view(s) of the lumbar spine were obtained. COMPARISON: None FINDINGS: There is a mild wedge-shaped compression fracture deformity of the T12 vertebral body which appears to be chronic. Normal lumbar lordosis. There is no substantial scoliosis. There is a normal alignment of the vertebrae. There is multilevel spondylosis and there are Schmorl's nodes in several vertebral endplates.. There is disc space narrowing at the L2-3 and L3-4 levels.. 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 The soft tissue structures are unremarkable. RAD/L/S Spine Min 4 Views IMPRESSION: Multilevel degenerative changes. Mild compression fracture deformity of the T12 vertebral body appears to be chronic. No demonstrated acute fracture or subluxation. Electronically Signed: Marshall Bell MD at 0:23 EST , Service support , CC: Taylor Alvarenga MD Claims Administrator: Signed CBC-COMPLETE BLOOD CNT Collected: 09/09/2018 Status: F Source: RYAN NO DIFF 12:58 PM [facility] REPOSITORY TYPE CODE TESTS RESULT OUT OF RANGE REFERENCE UNITS LAB L100.1000 4.4-11.0 K/mm3 High WBC 11.9 LAB L100.1200 4.2-5.4 M/mm3 Low RBC 3.32 LAB L100.1300 12.0-15.0 g/dl Low HGB 11.4 LAB L100.1400 37-47 % Low HCT 34.7 LAB L100.1500 81-99 fL High MCV 104.5 LAB L100.1600 27.0-32.0 pg High MCH 34.3 LAB L100.1700 32-36 g/gl Normal MCHC 32.9 LAB L100.1810 11.6-14.6 % High RDW CV 15.4 LAB L100.1820 35.1-43.9 fl High RDW SD 58.6 LAB L100.1900 150-450 K/mm3 Low PLT 137 LAB L100.2000 6.2-12.0 fl Normal MPV 10.4 Performed By: #### L100.0500 #### [facility] [address] [place], [place], [address] RENAL PROFILE Collected: 09/09/2018 Status: F Source: RYAN 12:58 PM [facility] REPOSITORY TYPE CODE TESTS RESULT OUT OF RANGE REFERENCE UNITS LAB L501.0100 74-106 mg/dL Low GLU 70 Result Comment: Please note revised GLUCOSE reference range effective 2017. LAB L501.1000 7-18 mg/dL High BUN 95 LAB L501.1100 0.55-1.02 mg/dL High CREAT,SERUM 2.07 Result Comment: The validity of the calculated GFR AND GFRAA in patients over 70 years has not been determined. Clinical correlation is essential. LAB L501.1110 >60 mL/min Low EST GFR 25 Result Comment: Non- GFR Calc LAB L501.1115 >60 mL/min Low EST GFR - AA 30 Result Comment: GFR Calc LAB L501.1300 10-20 RATIO High BUN/CRE 45.9 LAB L501.1800 3.2-5.0 g/dL Low ALB 2.7 LAB L501.2200 8.5-10.1 mg/dL Low CA 8.0 LAB L501.2300 2.5-4.9 mg/dL Normal PHOS 4.9 LAB L501.5300 136-145 mmol/L NA Normal 141 LAB L501.5600 3.5-5.1 mmol/L K Normal 3.8 LAB L501.5900 98-107 mmol/L High CL 110 LAB L501.6100 21.0-32.0 mmol/L Low CO2 20.0 Performed By: #### L500.3600 #### [facility] [address] [place], [place], [address] VITAMIN D,25 HYDROXY Collected: 09/09/2018 Status: F Source: HAYTI 12:58 PM [facility] REPOSITORY TYPE CODE TESTS RESULT OUT OF RANGE REFERENCE UNITS LAB L506.1000 29.95-100.01 ng/mL Normal Vitamin D 39.1 25-OH Result Comment: Vitamin D 25(OH) Status Range Deficiency <20 ng/mL (50nmol/L) Insuffciency 20 - 30 ng/mL (50 - 75 nmol/L) Sufficiency 30 - 100 ng/mL (75 - 250 nmol/L) Toxicity >100 ng/mL (>250 nmol/L) Performed By: #### L506.1000 #### [facility] [address] [place], [address] PTHIN Collected: 09/09/2018 Status: F Source: HAYTI 12:58 PM [facility] REPOSITORY TYPE CODE TESTS RESULT OUT OF RANGE REFERENCE UNITS LAB L509.1000 18.4-80.1 pg/mL High PTHIN 120.0 Performed By: #### L509.1000 #### [facility] [address] [place], [place], [address] BASIC METABOLIC Collected: 08/19/2018 Status: F Source: RYAN PROFILE ([facility]) 4:47 PM [facility] REPOSITORY TYPE CODE TESTS RESULT OUT OF RANGE REFERENCE UNITS LAB L501.0100 74-106 mg/dL Normal GLU 92 Result Comment: Please note revised GLUCOSE reference range effective 2017. LAB L501.1000 7-18 mg/dL High BUN 100 LAB L501.1100 0.55-1.02 mg/dL High 2.39 CREAT,SERUM Result Comment: The validity of the calculated GFR AND GFRAA in patients over 70 years has not been determined. Clinical correlation is essential. LAB L501.1110 >60 mL/min Low EST GFR 21 Result Comment: Non- GFR Calc LAB L501.1115 >60 mL/min Low EST GFR - AA 25 Result Comment: GFR Calc LAB L501.1300 10-20 RATIO High BUN/CRE 41.8 LAB L501.2200 8.5-10.1 mg/dL Low CA 7.9 LAB L501.5300 136-145 mmol/L NA Normal 140 LAB L501.5600 3.5-5.1 mmol/L K Normal 4.3 LAB L501.5900 98-107 mmol/L High CL 110 LAB L501.6100 21.0-32.0 mmol/L Low CO2 17.0 LAB L501.6200 5-15 Normal GAP 13 Performed By: #### L500.2500 #### [facility] [address] [place], [place], [address] BASIC METABOLIC Collected: 08/12/2018 Status: F Source: RYAN PROFILE (BMP) 4:39 PM [facility] REPOSITORY Order Comment: DR SIU ORDERED: LIVER DR ARREDONDO ORDERED: RENAL TYPE CODE TESTS RESULT OUT OF RANGE REFERENCE UNITS LAB L501.0100 74-106 mg/dL High GLU 213 Result Comment: Glucose result greater than or equal to 200 mg/dL suggests DIABETES MELLITUS per A.D.A. criteria. Please note revised GLUCOSE reference range effective 2017. LAB L501.1000 7-18 mg/dL High BUN 95 LAB L501.1100 0.55-1.02 mg/dL High CREAT,SERUM 2.59 Result Comment: The validity of the calculated GFR AND GFRAA in patients over 70 years has not been determined. Clinical correlation is essential. LAB L501.1110 >60 mL/min Low EST GFR 19 Result Comment: Non- GFR Calc LAB L501.1115 >60 mL/min Low EST GFR - AA 23 Result Comment: GFR Calc LAB L501.1300 10-20 RATIO High BUN/CRE 36.7 LAB L501.2200 8.5-10.1 mg/dL Low CA 8.0 LAB L501.5300 136-145 mmol/L Low NA 135 LAB L501.5600 3.5-5.1 mmol/L High K 5.6 LAB L501.5900 98-107 mmol/L CL Normal 107 LAB L501.6100 21.0-32.0 mmol/L Low CO2 19.0 LAB L501.6200 5-15 Normal GAP 9 Performed By: #### L500.2500, L500.3400, L501.2300 #### [facility] [address] [place], [place], [address] LIVER PROFILE Collected: 08/12/2018 Status: F Source: HAYTI 4:39 PM [facility] REPOSITORY Order Comment: DR SIU ORDERED: LIVER DR ARREDONDO ORDERED: RENAL TYPE CODE TESTS RESULT OUT OF RANGE REFERENCE UNITS LAB L501.1500 6.4-8.2 g/dL Normal T PROT 6.9 LAB L501.1800 3.2-5.0 g/dL Low ALB 2.9 LAB L501.1950 2.2-4.2 g/dL Normal GLOB 4.0 LAB L501.4100 15-37 U/L High AST 47 LAB L501.4305 45-117 U/L High ALK P 167 LAB L501.4405 13-56 U/L Normal ALT 44 LAB L501.4600 0.20-1.00 mg/dL Normal T BILI 0.50 LAB L501.4700 0.00-0.30 mg/dL Normal D BILI 0.25 Performed By: #### L500.2500, L500.3400, L501.2300 #### [facility] [address] [place], [place], [id number] PHOSPHORUS Collected: 08/12/2018 Status: F Source: RYAN 4:39 PM [facility] REPOSITORY Order Comment: DR SIU ORDERED: LIVER DR ARREDONDO ORDERED: RENAL TYPE CODE TESTS RESULT OUT OF RANGE REFERENCE UNITS LAB L501.2300 2.5-4.9 mg/dL High PHOS 5.0 Performed By: #### L500.2500, L500.3400, L501.2300 #### [facility] [address] [place], [address] LIVER PROFILE Collected: 07/15/2018 Status: F Source: RYAN 2:41 PM [facility] REPOSITORY TYPE CODE TESTS RESULT OUT OF RANGE REFERENCE UNITS LAB L501.1500 6.4-8.2 g/dL Normal T PROT 7.0 LAB L501.1800 3.2-5.0 g/dL Low ALB 2.5 LAB L501.1950 2.2-4.2 g/dL High GLOB 4.5 LAB L501.4100 15-37 U/L High AST 143 LAB L501.4305 45-117 U/L High ALK P 221 LAB L501.4405 13-56 U/L High ALT 73 LAB L501.4600 0.20-1.00 mg/dL Normal T BILI 0.60 LAB L501.4700 0.00-0.30 mg/dL High D BILI 0.33 Performed By: #### L500.3400 #### [facility] [address] [place], [address] PROTHROMBIN TIME W/INR Collected: 07/15/2018 Status: F Source: HAYTI 2:41 PM [facility] REPOSITORY TYPE CODE TESTS RESULT OUT OF RANGE REFERENCE UNITS LAB L300.4150 11.7-14.9 SECONDS High PROTIME 16.6 LAB L300.4200 Normal INR 1.3 Performed By: #### L300.3900, L300.4310 #### [facility] [address] [place], [address] PARTIAL THROMBOPLAST Collected: 07/15/2018 Status: F Source: HAYTI TIME 2:41 PM [facility] REPOSITORY TYPE CODE TESTS RESULT OUT OF REFERENCE UNITS RANGE LAB L300.4310 24.1-36.2 Seconds High PTT 41.5 Performed By: #### L300.3900, L300.4310 #### [facility] [address] [place], [address] AFP, TUMOR MARKER Collected: 07/15/2018 Status: F Source: RYAN 2:41 PM [facility] REPOSITORY Order Comment: Is Patient ? N TYPE CODE TESTS RESULT OUT OF RANGE REFERENCE UNITS LAB L3300.0700 0.0-8.3 ng/mL High AFP TUMOR 9.1 2253 Result Comment: [employer] ECLIA methodology Performed By: #### L3300.0700, L3400.0700 #### [facility] (refer to report for specific site) refer to report for address and phone number CERULOPLASMIN Collected: 07/15/2018 Status: F Source: RYAN 2:41 PM [facility] REPOSITORY Order Comment: Is Patient ? N TYPE CODE TESTS RESULT OUT OF RANGE REFERENCE UNITS LAB L3400.0700 19.0-39.0 mg/dL Normal CERULOPLAS 1560 21.9 Result Comment: Performed at: [address] [id number] Scudding Inspector: Eddy Feliciano PhD, Phone: [phone] Performed By: #### L3300.0700, L3400.0700 #### [facility] (refer to report for specific site) refer to report for address and phone number AIDA W/ REFLEX MULT Collected: 07/15/2018 Status: F Source: HAYTI CONFIRM 2:41 PM [facility] REPOSITORY TYPE CODE TESTS RESULT OUT OF RANGE REFERENCE UNITS LAB L3100.5475 Negative High Positive AIDA-DIRECT LAB L3100.5500 0-9 IU/mL 3 Normal dsDNA AB Result Comment: Negative <5 Equivocal 5 - 9 Positive >9 LAB L3100.9200 0.0-0.9 AI Anti-SS-A Normal < 0.2 LAB L3100.9300 0.0-0.9 AI Anti-SS-B Normal < 0.2 LAB L3410.0427 0.0-0.9 AI ANTICHROMATIN Normal <0.2 LAB L3410.0500 0.0-0.9 AI ANTI-MARISELA Normal <0.2 LAB L3410.0700 0.0-0.9 AI ANTISCLER Normal <0.2 LAB L3410.1200 0.0-0.9 AI REGULATORY AFFAIRS COORDINATOR Ab High 1.0 LAB L3410.1300 0.0-0.9 AI WATERS Ab Normal <0.2 LAB L3410.4010 0.0-0.9 AI ANTI-CENT B Normal <0.2 LAB L3410.4150 . COMMENT Normal Comment Result Comment: Autoantibody Disease Association Condition Frequency --------- Antinuclear Antibody, SLE, mixed connective Direct (AIDA-D) tissue diseases --------- dsDNA SLE 40 - 60% --------- Chromatin Drug induced SLE 90% SLE 48 - 97% --------- SSA (Ro) SLE 25 - 35% Sjogren's Syndrome 40 - 70% Lupus 100% --------- SSB (La) SLE 10% Sjogren's Syndrome 30% --------- Sm (anti-Waters) SLE 15 - 30% --------- REGULATORY AFFAIRS COORDINATOR Mixed Connective Tissue Disease 95% (U1 nRNP, SLE 30 - 50% anti-ribonucleoprotein) Polymyositis and/or Dermatomyositis 20% --------- Scl-70 (antiDNA Scleroderma (diffuse) 20 - 35% topoisomerase) Crest 13% --------- Marisela-1 Polymyositis and/or Dermatomyositis 20 - 40% --------- Centromere B Scleroderma - Crest variant 80% Performed By: #### L3100.5450, L3900.2100 #### [facility] (refer to report for specific site) refer to report for address and phone number ALPHA ANTITRYPSIN SERUM Collected: 07/15/2018 Status: F Source: RYAN 2:41 PM [facility] TYPE CODE TESTS RESULT OUT OF RANGE REFERENCE UNITS LAB L3900.2100 90-200 mg/dL Normal A- 117 [id number] Result Comment: Performed at: - [facility] [id number] Scudding Inspector: Eddy Feliciano PhD, Phone: [phone] Performed By: #### L3100.5450, L3900.2100 #### [facility] (refer to report for specific site) refer to report for address and phone number RENAL PROFILE Collected: 07/11/2018 Status: F Source: RYAN 4:59 PM [facility] REPOSITORY Order Comment: SEND RESULTS TO ALSO. TYPE CODE TESTS RESULT OUT OF RANGE REFERENCE UNITS LAB L501.0100 74-106 mg/dL High GLU 258 Result Comment: Glucose result greater than or equal to 200 mg/dL suggests DIABETES MELLITUS per A.D.A. criteria. Please note revised GLUCOSE reference range effective 2017. LAB L501.1000 7-18 mg/dL High BUN 52 LAB L501.1100 0.55-1.02 mg/dL High CREAT,SERUM 2.19 Result Comment: The validity of the calculated GFR AND GFRAA in patients over 70 years has not been determined. Clinical correlation is essential. LAB L501.1110 >60 mL/min Low EST GFR 23 Result Comment: Non- GFR Calc LAB L501.1115 >60 mL/min Low EST GFR - AA 28 Result Comment: GFR Calc LAB L501.1300 10-20 RATIO High BUN/CRE 23.7 LAB L501.1800 3.2-5.0 g/dL Low ALB 2.4 LAB L501.2200 8.5-10.1 mg/dL Low CA 7.7 LAB L501.2300 2.5-4.9 mg/dL Normal PHOS 4.8 LAB L501.5300 136-145 mmol/L Low NA 134 LAB L501.5600 3.5-5.1 mmol/L K Normal 3.9 LAB L501.5900 98-107 mmol/L CL Normal 104 LAB L501.6100 21.0-32.0 mmol/L Low CO2 20.0 Performed By: #### L500.3600 #### [facility] [address] [place], [address] POTASSIUM Collected: 07/08/2018 Status: F Source: RYAN 4:18 PM [facility] REPOSITORY TYPE CODE TESTS RESULT OUT OF RANGE REFERENCE UNITS LAB L501.5600 3.5-5.1 mmol/L Normal K 4.7 Performed By: #### L501.5600 #### [facility] [address] [place], [address] BASIC METABOLIC Collected: 07/06/2018 Status: F Source: RYAN PROFILE (BMP) 12:02 PM [facility] REPOSITORY TYPE CODE TESTS RESULT OUT OF RANGE REFERENCE UNITS LAB L501.0100 74-106 mg/dL High GLU 118 Result Comment: Fasting Glucose result from 100 to 125 mg/dL suggests IMPAIRED HOMEOSTASIS per A.D.A. criteria. Please note revised GLUCOSE reference range effective 2017. LAB L501.1000 7-18 mg/dL High BUN 48 LAB L501.1100 0.55-1.02 mg/dL High CREAT,SERUM 2.25 Result Comment: The validity of the calculated GFR AND GFRAA in patients over 70 years has not been determined. Clinical correlation is essential. LAB L501.1110 >60 mL/min Low EST GFR 23 Result Comment: Non- GFR Calc LAB L501.1115 >60 mL/min Low EST GFR - AA 27 Result Comment: GFR Calc LAB L501.1300 10-20 RATIO High BUN/CRE 21.3 LAB L501.2200 8.5-10.1 mg/dL Low CA 8.4 LAB L501.5300 136-145 mmol/L Low NA 128 LAB L501.5600 3.5-5.1 mmol/L High K 5.7 LAB L501.5900 98-107 mmol/L CL Normal 103 LAB L501.6100 21.0-32.0 mmol/L Low CO2 18.0 LAB L501.6200 5-15 Normal GAP 7 Performed By: #### L500.2500, L500.3400, L501.2400, L501.2450 #### [facility] [address] [place], [address] LIVER PROFILE Collected: 07/06/2018 Status: F Source: HAYTI 12:02 PM [facility] REPOSITORY TYPE CODE TESTS RESULT OUT OF RANGE REFERENCE UNITS LAB L501.1500 6.4-8.2 g/dL Normal T PROT 7.6 LAB L501.1800 3.2-5.0 g/dL Low ALB 2.9 LAB L501.1950 2.2-4.2 g/dL High GLOB 4.7 LAB L501.4100 15-37 U/L High AST 206 LAB L501.4305 45-117 U/L High ALK P 229 LAB L501.4405 13-56 U/L High ALT 100 LAB L501.4600 0.20-1.00 mg/dL Normal T BILI 0.80 LAB L501.4700 0.00-0.30 mg/dL High D BILI 0.46 Performed By: #### L500.2500, L500.3400, L501.2400, L501.2450 #### [facility] [address] [place], [place], [id number] AMYLASE Collected: 07/06/2018 Status: F Source: HAYTI 12:02 PM [facility] REPOSITORY TYPE CODE TESTS RESULT OUT OF RANGE REFERENCE UNITS LAB L501.2400 25-115 U/L Normal TAYLOR 75 Performed By: #### L500.2500, L500.3400, L501.2400, L501.2450 #### [facility] [address] [place], [place], [address] LIPASE Collected: 07/06/2018 Status: F Source: HAYTI 12:02 PM [facility] REPOSITORY TYPE CODE TESTS RESULT OUT OF REFERENCE UNITS RANGE LAB L501.2450 73-393 U/L High LIPASE 939 Performed By: #### L500.2500, L500.3400, L501.2400, L501.2450 #### [facility] [address] [place], [place], [address] HEMOGLOBIN A1C Collected: 07/06/2018 Status: F Source: HAYTI 12:02 PM [facility] REPOSITORY TYPE CODE TESTS RESULT OUT OF RANGE REFERENCE UNITS LAB L501.9985 4.2-6.3 % High HGB A1C 6.4 Performed By: #### L501.9985 #### [facility] [address] [place], [place], [address] RENAL PROFILE Collected: 06/20/2018 Status: F Source: RYAN 4:43 PM [facility] REPOSITORY Order Comment: ORDERED: RENAL, NA : PROTEIN ELECT, LKM AB'S Comments: [id number];LIVER,KIDNEY MICRO;SERUM;FROZ TYPE CODE TESTS RESULT OUT OF RANGE REFERENCE UNITS LAB L501.0100 74-106 mg/dL Low GLU 59 Result Comment: Please note revised GLUCOSE reference range effective 2017. LAB L501.1000 7-18 mg/dL High BUN 66 LAB L501.1100 0.55-1.02 mg/dL High CREAT,SERUM 2.26 Result Comment: The validity of the calculated GFR AND GFRAA in patients over 70 years has not been determined. Clinical correlation is essential. LAB L501.1110 >60 mL/min Low EST GFR 22 Result Comment: Non- GFR Calc LAB L501.1115 >60 mL/min Low EST GFR - AA 27 Result Comment: GFR Calc LAB L501.1300 10-20 RATIO High BUN/CRE 29.2 LAB L501.1800 3.2-5.0 g/dL Low ALB 2.6 LAB L501.2200 8.5-10.1 mg/dL Low CA 8.2 LAB L501.2300 2.5-4.9 mg/dL Normal PHOS 4.4 LAB L501.5300 136-145 mmol/L Low NA 132 LAB L501.5600 3.5-5.1 mmol/L K Normal 5.1 LAB L501.5900 98-107 mmol/L CL Normal 100 LAB L501.6100 21.0-32.0 mmol/L Normal CO2 24.0 Performed By: #### L500.3600 #### [facility] [address] [place], [place], [address] PROTEIN ELECTROPH, S Collected: 06/20/2018 Status: F Source: RYAN 4:43 PM [facility] REPOSITORY Order Comment: ORDERED: RENAL, NA : PROTEIN ELECT, LKM AB'S TYPE CODE TESTS RESULT OUT OF RANGE REFERENCE UNITS LAB L3100.3500 6.0-8.5 g/dL Normal PROTEIN,TOTAL 6.4 LAB L3100.3600 2.9-4.4 g/dL Normal ALBUMIN 2.9 LAB L3100.3700 0.0-0.4 g/dL Normal ALPHA-1 GLOBUL 0.2 LAB L3100.3800 0.4-1.0 g/dL Normal ALPHA-2 GLOBUL 0.8 LAB L3100.3900 0.7-1.3 g/dL Normal BETA GLOBULIN 1.0 LAB L3100.4000 0.4-1.8 g/dL Normal GAMMA GLOBULIN 1.5 LAB L3100.4110 Normal M-SPIKE Result Comment: Not Observed LAB L3100.4200 2.2-3.9 g/dL GLOBULIN, TOTAL Normal 3.5 LAB L3100.4300 0.7-1.7 A/G RATIO Normal 0.8 LAB L3100.4320 . INTERPRETATION Normal Comment Result Comment: Protein electrophoresis scan will follow via computer, mail, or chin strap sewer delivery. LAB L3100.4340 . Normal NOTE: Comment Result Comment: The SPE pattern appears essentially unremarkable. Evidence of monoclonal protein is not apparent. Performed at: [facility] [id number] Scudding Inspector: Eddy Feliciano PhD, Phone: [phone] Performed By: #### L3100.1440 #### [facility] (refer to report for specific site) refer to report for address and phone number MISCELLANEOUS LAB Collected: 06/20/2018 Status: F Source: RYAN PROCEDURE 4:43 PM [facility] REPOSITORY Order Comment: ORDERED: RENAL, NA : PROTEIN ELECT, LKM AB'S Comments: [id number];LIVER,KIDNEY MICRO;SERUM;FROZ Test(s) Ordered: [id number];LIVER,KIDNEY MICRO;SERUM;FROZ TYPE CODE TESTS RESULT OUT OF RANGE REFERENCE UNITS LAB L801.1541 Normal [facility] LAB TEST Result Comment: TEST RESULT LIMITS Liver-Kidney Microsomal Ab <1.0 Units 0.0 - 20.0 Negative 0.0 - 20.0 Equivocal 20.1 - 24.9 Positive >24.9 LKM type 1 antibodies are detected in patients with autoimmune hepatitis type 2 and in up to 8% of patients with chronic HCV infection. TESTING PERFORMED AT [facility]. ORIGINAL REPORT ON FILE IN LAB CONTAINS ADDITIONAL TEST SITE INFORMATION. Performed By: #### L801.1541 #### [facility] [address] [place], [address] MARVEL + PROTEIN ELECT, Collected: 06/15/2018 Status: F Source: HAYTI SERUM 10:02 AM [facility] REPOSITORY Order Comment: Is Patient Fasting? N Comments: [id number] LKM AB SER FZ TYPE CODE TESTS RESULT OUT OF RANGE REFERENCE UNITS LAB L3100.3500 6.0-8.5 g/dL Low PROTEIN,TOTAL 5.9 LAB L3200.5770 057-4604 mg/dL Normal IMMUNO G 1292 LAB L3200.1400 64-422 mg/dL Normal IMMUNO A 256 LAB L3200.1500 26-217 mg/dL Normal IMMUNOGL M 72 LAB L3200.1510 2.9-4.4 g/dL Low ALBUMIN 2.6 LAB L3200.1520 0.0-0.4 g/dL Normal UPQRY-1-SCBL 0.2 LAB L3200.1530 0.4-1.0 g/dL Normal RWDPQ-7-ZFWA 0.8 LAB L3200.1540 0.7-1.3 g/dL Normal BETA GLOBULIN 1.0 LAB L3200.1550 0.4-1.8 g/dL Normal GAMMA GLOBULIN 1.3 LAB L3200.1560 Normal M-SPIKE Result Comment: NOt Observed LAB L3200.1570 2.2-3.9 g/dL Normal GLOBULIN, TOTAL 3.3 LAB L3200.1580 0.7-1.7 A/G Normal RATIO 0.8 LAB L3200.1590 . MRAVEL Normal RESULT,S Comment: Result Comment: Presence of monoclonal protein is unclear at this time. Suggest repeat in 3 to 6 months if clinically indicated. LAB L3200.1594 . Normal NOTE: Comment Result Comment: Protein electrophoresis scan will follow via computer, mail, or chin strap sewer delivery. Performed at: [address] [id number] Scudding Inspector: Eddy Feliciano PhD, Phone: [phone] Performed By: #### L3100.3425 #### [facility] (refer to report for specific site) refer to report for address and phone number MISCELLANEOUS LAB Collected: 06/15/2018 Status: F Source: RYAN PROCEDURE 10:02 AM [facility] REPOSITORY Order Comment: Comments: [id number] LKM AB SER FZ Test(s) Ordered: [id number] LKM AB SER FZ TYPE CODE TESTS RESULT OUT OF RANGE REFERENCE UNITS LAB L801.1541 Normal [facility] LAB TEST Result Comment: TEST RESULT UNITS REF INTERVAL Liver-Kidney Microsomal Ab <1.0 Units 0.0 - 20.0 Negative 0.0 - 20.0 Equivocal 20.1 - 24.9 Positive >24.9 LKM type 1 antibodies are detected in patients with autoimmune hepatitis type 2 and in up to 8% of patients with chronic HCV infection. TESTING PERFORMED AT [facility]. ORIGINAL REPORT ON FILE IN LAB CONTAINS ADDITIONAL TEST SITE INFORMATION. Performed By: #### L801.1541 #### [facility] [address] [place], [address] BASIC METABOLIC Collected: 06/10/2018 Status: F Source: RYAN PROFILE (BMP) 5:10 PM [facility] [place] REPOSITORY TYPE CODE TESTS RESULT OUT OF RANGE REFERENCE UNITS LAB L501.0100 74-106 mg/dL High GLU 160 Result Comment: Fasting Glucose result greater than or equal to 126 mg/dL suggests DIABETES MELLITUS per A.D.A. criteria. Please note revised GLUCOSE reference range effective 2017. LAB L501.1000 7-18 mg/dL High BUN 58 LAB L501.1100 0.55-1.02 mg/dL High CREAT,SERUM 2.21 Result Comment: The validity of the calculated GFR AND GFRAA in patients over 70 years has not been determined. Clinical correlation is essential. LAB L501.1110 >60 mL/min Low EST GFR 23 Result Comment: Non- GFR Calc LAB L501.1115 >60 mL/min Low EST GFR - AA 28 Result Comment: GFR Calc LAB L501.1300 10-20 RATIO High BUN/CRE 26.2 LAB L501.2200 8.5-10.1 mg/dL Low CA 7.8 LAB L501.5300 136-145 mmol/L Low NA 135 LAB L501.5600 3.5-5.1 mmol/L K Normal 5.1 LAB L501.5900 98-107 mmol/L CL Normal 102 LAB L501.6100 21.0-32.0 mmol/L Normal CO2 24.0 LAB L501.6200 5-15 Normal GAP 9 Performed By: #### L500.2500 #### [facility] [address] [place], [address] ANTI-SMOOTH MUSCLE ABS Collected: 06/08/2018 Status: F Source: HAYTI 5:43 PM [facility] REPOSITORY Order Comment: Is Patient ? N TYPE CODE TESTS RESULT OUT OF REFERENCE UNITS RANGE LAB L803.2200 0-19 Units High ANTISMOOTH 6643 31 Result Comment: Negative 0 - 19 Weak positive 20 - 30 Moderate to strong positive >30 Actin Antibodies are found in 52-85% of patients with autoimmune hepatitis or chronic active hepatitis and in 22% of patients with primary biliary cirrhosis. Performed By: #### L803.2200, L3100.0390, L3100.0625, L3300.0700 #### [facility] (refer to report for specific site) refer to report for address and phone number HEPATITIS B SURFACE Collected: 06/08/2018 Status: F Source: RYAN AG 5:43 PM [facility] REPOSITORY Order Comment: Is Patient ? N TYPE CODE TESTS RESULT OUT OF RANGE REFERENCE UNITS LAB L3100.0400 Negative Normal HB Negative SURF AG Result Comment: Performed at: - [facility] [id number] Scudding Inspector: Eddy Feliciano PhD, Phone: [phone] Performed By: #### L803.2200, L3100.0390, L3100.0625, L3300.0700 #### [facility] (refer to report for specific site) refer to report for address and phone number HEPATITIS C ANTIBODIES Collected: 06/08/2018 Status: F Source: RYAN 5:43 PM [facility] REPOSITORY Order Comment: Is Patient ? N TYPE CODE TESTS RESULT OUT OF RANGE REFERENCE UNITS LAB L3100.0650 0.0-0.9 s/co ratio Normal HEP C AB 0.1 Result Comment: Negative: < 0.8 Indeterminate: 0.8 - 0.9 Positive: > 0.9 The CDC recommends that a positive HCV antibody result be followed up with a HCV Nucleic Acid Amplification test (297036). Performed By: #### L803.2200, L3100.0390, L3100.0625, L3300.0700 #### [facility] (refer to report for specific site) refer to report for address and phone number AFP, TUMOR MARKER Collected: 06/08/2018 Status: F Source: RYAN 5:43 PM [facility] REPOSITORY Order Comment: Is Patient ? N TYPE CODE TESTS RESULT OUT OF RANGE REFERENCE UNITS LAB L3300.0700 0.0-8.3 ng/mL High AFP TUMOR 9.9 2253 Result Comment: Adelso ECLIA methodology Performed By: #### L803.2200, L3100.0390, L3100.0625, L3300.0700 #### [facility] (refer to report for specific site) refer to report for address and phone number ANTI-MITOCHONDRIAL AB Collected: Status: F Source: RYAN 06/08/2018 5:43 PM [facility] REPOSITORY TYPE CODE TESTS RESULT OUT OF RANGE REFERENCE UNITS LAB L800.1280 0.0-20.0 Units Normal MITOCHN AB <20.0 Result Comment: Negative 0.0 - 20.0 Equivocal 20.1 - 24.9 Positive >24.9 Mitochondrial (M2) Antibodies are found in 90-96% of patients with primary biliary cirrhosis. Performed By: #### L800.1280, L3100.5475 #### [facility] (refer to report for specific site) refer to report for address and phone number ANTINUCLEAR ANTIBODIES Collected: 06/08/2018 Status: F Source: RYAN DIRECT 5:43 PM [facility] REPOSITORY TYPE CODE TESTS RESULT OUT OF REFERENCE UNITS RANGE LAB L3100.1967 Negative High Positive AIDA-DIRECT Result Comment: Performed at: - [facility] [id number] Scudding Inspector: Eddy Feliciano PhD, Phone: [phone] Performed By: #### L800.1280, [id number] #### [facility] (refer to report for specific site) refer to report for address and phone number SURGERY VISIT REPORT Observed: 06/07/2018 Status: F Source: RYAN 2:29 PM [facility] REPOSITORY [facility] [address] [place] [address]. [address] [place] [address] OFFICE VISIT Date of Service: 06/07/18 MR#: [id number] Acct: [id number] Name: JUN JOHNSON Rep #: [id number] : 1940 Provider: Massiel Puente MD Age/Sex: 78/F Location: [facility] Status: Signed Intake Intake Visit Reasons: Gallbladder 05/31 Chief Complaint: abd pain Health Insurance Assessor Required: No Is patient in pain?: Yes (abdomen and back) Pain scale (1- 10): 6 Allergies codeine Adverse Reaction (Verified 06/07/18 14:10) Hives pain medications Adverse Reaction (Intermediate, Uncoded 06/04/18 20:13) nausea/vomiting Medications Atenolol [Tenormin (beta marilyn)] 100 mg PO DAILY 12/05/17 [History Confirmed 06/07/18] Allopurinol 100 mg PO DAILY 05/26/18 [History Confirmed 06/07/18] Insulin Lispro [Humalog] 20 unit SC LUNCH 05/26/18 [History Confirmed 06/07/18] amlodipine 5 mg tablet 5 mg PO DAILY 05/26/18 [History Confirmed 06/07/18] cholecalciferol (vitamin D3) 1,000 unit capsule 1,000 unit PO BID 05/26/18 [History Confirmed 06/07/18] cinnamon bark 500 mg capsule 1 cap PO DAILY cap 05/26/18 [History Confirmed 06/07/18] glucosamine HCl 750 mg tablet 750 mg PO DAILY tab 05/26/18 [History Confirmed 06/07/18] insulin detemir (U-100) 100 unit/mL (3 mL) subcutaneous pen 40 unit SC BREAKFAST ml 05/26/18 [History Confirmed 06/07/18] insulin lispro (U-100) 100 unit/mL subcutaneous pen 10 unit SC QPM 05/26/18 [History Confirmed 06/07/18] insulin lispro (U-100) 100 unit/mL subcutaneous pen 20 unit SC BREAKFAST 05/26/18 [History Confirmed 06/07/18] magnesium 64 mg (magnesium chloride) tablet,delayed release 64 mg PO DAILY tab 05/26/18 [History Confirmed 06/07/18] multivitamin tablet 1 tab PO DAILY 05/26/18 [History Confirmed 06/07/18] selenium 100 mcg tablet 100 mcg PO DAILY 05/26/18 [History Confirmed 06/07/18] sour bolivar extract 1,000 mg capsule 1 mg PO TID PRN cap 05/26/18 [History Confirmed 06/07/18] Tramadol HCl [Ultram] 50 mg PO BID PRN PRN 5 Days #10 tab 05/27/18 [Rx Confirmed 06/07/18] PFSH Medical History Abdominal pain (Acute) Anxiety (Acute) Cholelithiasis (Acute) Constipation (Acute) Diabetes (Acute) Gout (Acute) Nausea AND vomiting (Acute) Rheumatoid arthritis (Acute) Hypertension (Chronic) Surgical History History of hysterectomy (Acute) Family History Father Heart disease Social History Smoking Status: Never smoker alcohol intake: never substance use type: does not use HPI HPI HPI: JUN JOHNSON, is a 78 F who presents to the office today for follow-up status post laparoscopic cholecystectomy on 05/27/18. Patient also had a biopsy of the liver at that time did show chronic hepatitis, grade 2, stage III (modified [place] system. Prior to leaving the hospital patient did have issues with leaking from her lateral right trocar sites which were reinforced with 3-0 nylon U stitch. Patient did go to the ER on 06/03 due to swelling of the legs and weakness. She was sent home. Patient was also supposed to have appointment with Dr. Siu on that day however due to feeling weakness that she did not make that appointment and they had not rescheduled at this point. Patient and her state they have been having some leakage of the lateral right trocar site for the past 4 days. It is clear yellow fluid. ROS General General: Yes weight change (Increased due to abdominal flow) Exam Const General: cooperative, comfortable, no acute distress GI Inspection: distended Palpation: firm (Skin is a little tense due to ascites), nontender, no guarding, no hepatomegaly, other (Patient does have clear yellow fluid leaking from the right lateral port site) Assessment AND Plan Problems 1. S/P laparoscopic cholecystectomy Z90.49 2. Chronic hepatitis K73.9 Plan Patient states her previous right upper pain prior to surgery is resolved. However she does complain of abdominal swelling and bilateral leg edema. Also patient check liver function panel as well as PT INR and PTT. The right lateral trocar site U stitch was removed and the area was prepped and draped in usual sterile fashion with Betadine and another 3-0 nylon U stitch was placed after local anesthesia. Patient tolerated procedure well. Did discuss with Dr. Alvarenga as well as patient canceled her appointment for Dr. Siu. Instructed patient to try to get another appointment Dr. Siu's office and unable to do so in her resume that time as the patient to call Dr. Alvarenga's office. Dr. Alvarenga was agreeable to send in some Aldactone for 5 days to see if this helps improve with her edema/ascites. She request the patient call with an update tomorrow. Patient and her were agreeable with plan. Massiel Puente M.D. Pager: [phone] [facility] [address] [place] [address], [facility], [address] [place], [place] [id number] Office: [phone] Orders Orders: Plan Detail Follow Up 1 Week Coding Level of Care Code Global Post Op Diagnoses S/P laparoscopic cholecystectomy Z90.49 Chronic hepatitis K73.9 06/07/18 1429 <Electronically signed by Massiel Puente MD> Date Massiel Puente MD Cosigner Signature: Date (if applicable) CC: Taylor Alvarenga MD; Eddy Siu LIVER PROFILE Collected: 06/07/2018 Status: F Source: HAYTI 2:29 PM [facility] REPOSITORY TYPE CODE TESTS RESULT OUT OF RANGE REFERENCE UNITS LAB L501.1500 6.4-8.2 g/dL Low T PROT 5.8 LAB L501.1800 3.2-5.0 g/dL Low ALB 2.2 LAB L501.1950 2.2-4.2 g/dL Normal GLOB 3.6 LAB L501.4100 15-37 U/L High AST 144 LAB L501.4305 45-117 U/L High ALK P 263 LAB L501.4405 13-56 U/L High ALT 80 LAB L501.4600 0.20-1.00 mg/dL Normal T BILI 0.80 LAB L501.4700 0.00-0.30 mg/dL High D BILI 0.50 Performed By: #### L500.3400, L300.3900, L300.4310 #### [facility] [address] [place], [address] PROTHROMBIN TIME W/INR Collected: 06/07/2018 Status: F Source: RYAN 2:29 PM [facility] REPOS[facility]ORY TYPE CODE TESTS RESULT OUT OF RANGE REFERENCE UNITS LAB L300.4150 11.7-14.9 SECONDS High PROTIME 16.2 LAB L300.4200 Normal INR 1.3 Performed By: #### L500.3400, L300.3900, L300.4310 #### [facility] [address] [place], [address] PARTIAL THROMBOPLAST Collected: 06/07/2018 Status: F Source: RYAN TIME 2:29 PM [facility] REPOSITORY TYPE CODE TESTS RESULT OUT OF REFERENCE UNITS RANGE LAB L300.4310 24.1-36.2 Seconds High PTT 36.3 Performed By: #### L500.3400, L300.3900, L300.4310 #### [facility] [address] [place], [address] EMERGENCY DEPARTMENT Observed: 06/04/2018 Status: F Source: RYAN SUMMARY 10:02 PM [facility] REPOSITORY [facility] Medical Records Department [address] [facility] [place] [address] Emergency Department Summary 06/04/18 2159 MR#: [id number] Acct: [id number] Name: JUN JOHNSON Rep #: [id number] : 1940 78 From: Cameron Carlson MD PCP: Taylor Alvarenga MD Status: REG ER - ER Visit Summary Date of Service: 06/04/18 Chief Complaint: Bilateral lower extremity swelling History of Present Illness: The patient is a 78 F who is status post laparoscopic cholecystectomy last week who presents with bilateral leg swelling. She states she has been sitting significantly patient's family states she sits the entire day. She denies any shortness of breath, difficulty breathing, pleuritic chest pain. She has ecchymosis of the abdomen where she has been injecting herself with insulin. She does have type 1 diabetes. Of note she was on Lovenox and most likely cause of her subcutaneous bleeding. She denies fever, chills night sweats. Denies any HEENT symptoms. She denies any urologic symptoms. There is no history of heart failure. She does have history of renal failure. Daughter stated that she was sent in by Dr. Sierra to assess her kidney function. Based on what I was told patient has not been elevating her legs and has been sitting with little to no activity. Physical Examination: Vital signs were noted and remarkable for blood pressure 152/60. She has pitting edema both lower extremities without any asymmetry, discoloration, leg vein distention, palpable coarseness on suspicion deep venous system. Heart is regular. Lungs are clear to auscultation with good air bilaterally. Test Results: BMP reveals sodium 130 which is improvement from prior. Creatinine is 2.29 prior was 2.50. Glucose is 199. Emergency Department Course and Treatment: Patient was informed in my professional opinion this represents pedal edema. Family states she was sent in specifically to assess her kidney function. A BMP was obtained for this reason. Treatment Plan: Appropriate treatment for dependent edema Disposition: Discharged home with family Impression: Bilateral dependent edema End-stage renal disease Hyponatremia Hyperglycemia type I diabetic This note was generated with [employer] software. It may contain incorrect words, spelling, and punctuation that were not noted in review of the chart prior to signing ED Disposition - Plan for ED Patient: Disposition: Home or Assisted Living Chief Complaint: Edema Instructions: ED Lymphedema Referrals: Taylor Alvarenga MD [Primary Care Provider] - 1 Week if not improving What to do if you have Problems For any increased pain, shortness of breath, bleeding, nausea or vomiting, chest pain, or any unexpected problems, contact your Primary Care Provider. Call [facility] ([phone]) or report to the closest Emergency Room. Call 911 if necessary. 06/04/182201 <Electronically signed by Cameron Carlson MD> Date Cameron Carlson MD Cosigner Signature (If Indicated): Date CC: Taylor Alvarenga MD BASIC METABOLIC Collected: 06/04/2018 Status: F Source: RYAN PROFILE (BMP) 9:05 PM [facility] REPOSITORY TYPE CODE TESTS RESULT OUT OF RANGE REFERENCE UNITS LAB L501.0100 74-106 mg/dL High GLU 199 Result Comment: Fasting Glucose result greater than or equal to 126 mg/dL suggests DIABETES MELLITUS per A.D.A. criteria. Please note revised GLUCOSE reference range effective 2017. LAB L501.1000 7-18 mg/dL High BUN 60 LAB L501.1100 0.55-1.02 mg/dL High CREAT,SERUM 2.29 Result Comment: The validity of the calculated GFR AND GFRAA in patients over 70 years has not been determined. Clinical correlation is essential. LAB L501.1110 >60 mL/min Low EST GFR 22 Result Comment: Non- GFR Calc LAB L501.1115 >60 mL/min Low EST GFR - AA 27 Result Comment: GFR Calc LAB L501.1255 ml/min Normal Estimated CRCL 17.29 LAB L501.1300 10-20 RATIO High BUN/CRE 26.2 LAB L501.2200 8.5-10 mg/dL Low .1 CA 7.4 LAB L501.5300 136-14 mmol/L Low 5 NA 130 LAB L501.5600 3.5-5. mmol/L Normal 1 K 4.8 LAB L501.5900 98-107 mmol/L Low CL 97 LAB L501.6100 21.0-3 mmol/L Normal 2.0 CO2 23.0 LAB L501.6200 5-15 Normal GAP 10 Performed By: #### L500.2500 #### [facility] [address] [place], [address] 12 LEAD ELECTROCARDIOGRAM Observed: 05/31/2018 Status: F Source: HAYTI 3:11 PM [facility] REPOSITORY [facility] Cardiovascular Services [address] [place] [address] 12 Lead EKG 05/26/18 1315 MR#: [id number] Acct: [id number] Name: JUN JOHNSON Rep #: [id number] : 1940 78 From: Regan Andujar MD Attending Dr: Massiel Puente MD Status: DIS IN Ordering Dr: Dennis Mccormick MD Date: 05/26/18 Location: [facility] Sex: F C Admitted: 05/28/18 Test Reason : Blood Pressure : / mmHG Vent. Rate : 064 BPM Atrial Rate : 064 BPM P-R Int : 160 ms QRS Dur : 134 ms QT Int : 468 ms P-R-T Axes : -04 008 008 degrees QTc Int : 482 ms Normal sinus rhythm Right bundle branch block Abnormal ECG Confirmed by REGAN ANDUJAR MD ([id number]), editor news NIESHA SIERRA ([id number]) on 05/31/2018 3:11:33 PM Referred By: Confirmed By:REGAN ANDUJAR MD 05/31/18 1511 Date Regan Andujar MD CC: Taylor Alvarenga MD; Dennis Mccormick MD; Massiel Puente MD Signed 12 LEAD ELECTROCARDIOGRAM Observed: 05/31/2018 Status: F Source: HAYTI 3:02 PM [facility] REPOSITORY [facility] Cardiovascular [facility] [address] [address] 12 Lead EKG 05/28/18 0901 MR#: [id number] Acct: [id number] Name: JUN JOHNSON Rep #: [id number] : 1940 78 From: Regan Andujar MD Attending Dr: Massiel Puente MD Status: DIS IN Ordering Dr: Donita Toscano MD Date: 05/28/18 Location: [facility] Sex: F C Admitted: 05/28/18 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 Rate : 082 BPM Atrial Rate : 082 BPM P-R Int : 150 ms QRS Dur : 126 ms QT Int : 436 ms P-R-T Axes : 009 004 -12 degrees QTc Int : 509 ms Normal sinus rhythm Right bundle branch block T wave abnormality, consider inferolateral ischemia Abnormal ECG When compared with ECG of 26-MAY-2018 13:15, MANUAL COMPARISON REQUIRED, DATA IS UNCONFIRMED Confirmed by REGAN ANDUJAR MD ([id number]), editor news NIESHA SIERRA ([id number]) on 05/31/2018 3:02:20 PM Referred By: Confirmed By:REGAN ANDUJAR MD 05/31/18 1502 Date Regan Andujar MD CC: Donita Toscano MD; Taylor Alvarenga MD; Massiel Puente MD Signed DISCHARGE INSTRUCTION Observed: 05/30/2018 Status: F Source: YRAN 4:16 PM [facility] REPOSITORY [facility] Medical Records Department [address] [place] [address] Instructions for Home/Discharge Instructions 05/30/18 1613 MR#: [id number] Acct: [id number] Name: JUN JOHNSON Rep #: [id number] : 1940 78 From: Massiel Puente MD PCP: Taylor Alvarenga MD Status: ADM IN Discharge Diet: 1800 Calorie Control Diet Discharge Activity: May not drive while taking narcotic pain medications. May shower in (days): 1 Call your doctor if your incision/area has: Continuous Slow Oozing, Sudden Increased Bleeding, Increased Pain/ Swelling, Increased Redness, Foul Smelling Discharge, Swelling at the incision site Call your doctor if you observe: Fever of 101 or Higher Remove Dressing in (days):: 1 Additional Instructions: Discussed with patient that she may also need to see GI doctor for her liver fibrosis. Allergies/Adverse Reactions: Allergies codeine Adverse Reaction (Verified 12/07/17 16:13) Hives pain medications Adverse Reaction (Intermediate, Uncoded 05/26/18 10:13) nausea/vomiting Medications to take at Discharge Atenolol [Tenormin (beta marilyn)] 100 mg PO DAILY 12/05/17 Allopurinol 100 mg PO DAILY 05/26/18 Insulin Lispro [Humalog] 20 unit SC LUNCH 05/26/18 amlodipine 5 mg tablet 5 mg PO DAILY 05/26/18 cholecalciferol (vitamin D3) 1,000 unit capsule 1,000 unit PO BID 05/26/18 cinnamon bark 500 mg capsule 1 cap PO DAILY cap 05/26/18 glucosamine HCl 750 mg tablet 750 mg PO DAILY tab 05/26/18 insulin detemir (U-100) 100 unit/mL (3 mL) subcutaneous pen 40 unit SC BREAKFAST ml 05/26/18 insulin lispro (U-100) 100 unit/mL subcutaneous pen 10 unit SC QPM 05/26/18 insulin lispro (U-100) 100 unit/mL subcutaneous pen 20 unit SC BREAKFAST 05/26/18 magnesium 64 mg (magnesium chloride) tablet,delayed release 64 mg PO DAILY tab 05/26/18 multivitamin tablet 1 tab PO DAILY 05/26/18 selenium 100 mcg tablet 100 mcg PO DAILY 05/26/18 sour bolivar extract 1,000 mg capsule 1 mg PO TID PRN cap 05/26/18 Tramadol HCl [Ultram] 50 mg PO BID PRN PRN 5 Days #10 tablet 05/27/18 The following prescriptions were given: Tramadol HCl [Ultram] 50 mg PO BID PRN PRN 5 Days #10 tablet PRN Reason: Pain Primary Care Physician: Taylor Alvraenga MD [Primary Care Provider] - Test Results: Test results from this visit will be discussed in further detail at your follow-up appointment, if applicable. Please Follow Up With: Massiel Puente MD - call [phone] with any concerns after 5PM/weekend When: call office [phone] for f/u in 1 week Please Follow Up With: Irma Arredondo DO Proposed Discharge Date: 05/30/18 05/30/18 1616 <Electronically signed by Massiel Puente MD> Date Massiel Puente MD CC: Donita Toscano MD; Taylor Alvarenga MD; Irma Arredondo DO DISCHARGE SUMMARY Observed: 05/30/2018 Status: F Source: HAYTI 3:09 PM [facility] REPOSITORY [facility] Medical Records Department [address] [place] [address] [place] [address] Discharge Summary 05/27/18 1609 MR#: [id number] Acct: [id number] Name: JUN JOHNSON Rep #: [id number] : 1940 78 From: Massiel Puente MD PCP: Taylor Alvarenga MD Status: ADM IN Y Location: [place] [id number] ADDENDUM by Massiel Puente MD on 05/30/18 at 1509 Code Visit Date of discharge is not 05/28/1018; date of discharge is 05/30/2018 05/30/18 1509 <Electronically signed by Massiel Puente MD> Date Massiel Puente MD cc: Taylor Alvarenga MD; Massiel Puente MD * Signed Discharge Date and Diagnosis Date of Admission: 05/26/18 Date of Discharge: 05/28/18 - Primary Discharge Diagnosis Cholelithiasis Acute cholecystitis, Fibrosis of liver Abdominal ascites Chronic kidney disease Diabetes Chronic hyponatremia Hospital Course and Treatment Dr. Toscano for medical management Dr. Arredondo her chronic kidney disease Operations: cholecystecomy - with liver biopsy Procedures: None Summary of Care Provided: The patient is a 78 year old F was direct admitted from the office on 05/26/18 due to 3 weeks of epigastric abdominal pain, nausea and vomiting and anorexia. Patient did have an outpatient ultrasound did show gallstones along with gallbladder wall thickening of 3 mm and pericholecystic fluid. Upon admission patient did have an normal white blood cell count with a left shift as well as elevated AST, ALT and alk phos and lipase. These were all likely due to local inflammation due to the acute cholecystitis. Patient also had a notable sodium of 122 which was slowly corrected to [address] Toscano and Dr. Arredondo were consulted for medical management and chronic kidney disease. Patient did undergo a laparoscopic cholecystectomy with cholangiograms and wedge liver biopsy on 05/27/18. Cholangiogram does not show any filling defects and normal bile ducts. The liver did look fibrotic thus liver biopsy was done time of surgery. Patient was restarted on a normal diet after surgery. On postop day 1 patient did have a syncopal episode however CT of the head as well as MRI of the head were negative likely vagal episode. Patient did well throughout the week and was able to tolerate her diet was still having issues with hyponatremia and chronic kidney disease which she was also on a bicarb drip for per nephrology. Patient's blood sugars were not well controlled however she was on at home dose which was quite a bit higher than she was receiving here as she did have some hypoglycemic episodes initially. However patient's A1c shows it has been under fairly good control at home. Patient has been okayed for DC per nephrology and hospitalist. Plans to DC patient's lisinopril as well as hydrochlorothiazide and continue her home medication. Patient did have some serous leakage likely abdominal ascites which was seen intraoperatively from her lateral right trocar site. This was prepped draped in usual sterile fashion and a U stitch was placed in both of the right lateral incisions to prevent leakage of ascites. Discharge Diet: No Restrictions Discharge Activity: May not drive while taking narcotic pain medications. May shower in (days): 1 Lifting Restrict to (lbs):: 20 - for 4 weeks Call your doctor if your incision/area has: Continuous Slow Oozing, Sudden Increased Bleeding, Increased Pain/ Swelling, Increased Redness, Foul Smelling Discharge, Swelling at the incision site Call your doctor if you observe: Fever of 101 or Higher Remove Dressing in (days):: 1 Home Medications: Medications to take at Discharge Atenolol [Tenormin (beta marilyn)] 100 mg PO DAILY 12/05/17 Allopurinol 100 mg PO DAILY 05/26/18 Insulin Lispro [Humalog] 20 unit SC LUNCH 05/26/18 amlodipine 5 mg tablet 5 mg PO DAILY 05/26/18 cholecalciferol (vitamin D3) 1,000 unit capsule 1,000 unit PO BID 05/26/18 cinnamon bark 500 mg capsule 1 cap PO DAILY cap 05/26/18 glucosamine HCl 750 mg tablet 750 mg PO DAILY tab 05/26/18 insulin detemir (U-100) 100 unit/mL (3 mL) subcutaneous pen 40 unit SC BREAKFAST ml 05/26/18 insulin lispro (U-100) 100 unit/mL subcutaneous pen 10 unit SC QPM 05/26/18 insulin lispro (U-100) 100 unit/mL subcutaneous pen 20 unit SC BREAKFAST 05/26/18 magnesium 64 mg (magnesium chloride) tablet,delayed release 64 mg PO DAILY tab 05/26/18 multivitamin tablet 1 tab PO DAILY 05/26/18 selenium 100 mcg tablet 100 mcg PO DAILY 05/26/18 sour bolivar extract 1,000 mg capsule 1 mg PO TID PRN cap 05/26/18 Tramadol HCl [Ultram] 50 mg PO BID PRN PRN 5 Days #10 tablet 05/27/18 Following Prescrptions Were Given to Patient: Tramadol HCl [Ultram] 50 mg PO BID PRN PRN 5 Days #10 tablet PRN Reason: Pain Primary Care Physician: Taylor Alvarenga MD [Primary Care Provider] - Please Follow Up With: Massiel Puente MD - After 5 PM/weekends call [phone] with any questions or concerns When: Call the office [phone] for a f/u appt in 1 wk for suture removal Additional Instructions: Discussed with patient that she may also need to see GI doctor for her liver fibrosis. Pending Tests Upon Discharge: Liver biopsy pending Disposition: Home Minutes spent on discharge:: 15 Patient Condition:: Stable Medical Necessity - Tobacco Use Smoking Status: Never smoker Meaningful Use Info Meaningful Use Diagnoses (Choose all that apply): None applicable Code Visit Inpatient E AND M: 37404 Disch Hosp 05/30/18 1508 <Electronically signed by Massiel Puente MD> Date Massiel Puente MD Cosigner Signature (if applicable): Date CC: Taylor Alvarenga MD; Massiel Puente MD Signed BEDSIDE GLUCOSE Collected: 05/30/2018 Status: F Source: RYAN 11:57 AM [facility] REPOSITORY TYPE CODE TESTS RESULT OUT OF REFERENCE UNITS RANGE LAB L501.080 70-110 mg/dL High BEDSIDE GLU 292 Result Comment: MANAGEMENT OF PATIENT CARE PER NURSING PROTOCOL Performed By: #### L501.080 #### [facility] Laboratory Point of Care [address] [place] [address] CONSULTATION Observed: 05/30/2018 Status: F Source: RYAN 7:45 AM [facility] REPOSITORY [facility] Medical Records Department [address] [place] [address] Consultation 05/28/18 1659 MR#: [id number] Acct: [id number] Name: JUN JOHNSON Iliana Rep #: [id number] : 1940 78 From: Irma Arredondo DO PCP: Taylor Alvarenga MD Status: ADM IN Y Location: [facility] [id number] Consultation - Renal 05/28/18 PCP/ Referring MD: Requesting physician: [] Primary care physician: Taylor Alvarenga MD Reason for Consultation:: acute on CKD stage 4. hyponatremia - History of Present Illness History of Present Illness: 78-year-old female known to me with CKD stage IV due to diabetes followed in the outpatient office presents with 3 week history of abdominal pain, right upper quadrant with nausea and vomiting. She was diagnosed with cholecystitis, acute gallstone pancreatitis with elevated liver enzymes. She underwent laparoscopic cholecystectomy on May 27. Creatinine on admission was 2.3 increased to 2.7 today. She has metabolic acidosis with hyperkalemia. Her sodium level was low at 125 improved to 130 today with IV hydration. Her hydrochlorothiazide was discontinued. She has a history of diabetes mellitus type 2 along with hypertension. She has been feeling well postoperatively and was ready to go home this morning, up walking the hallway until her found her unresponsive. She was evaluated for stroke and neurology was consulted. She transferred from [facility] to telemetry floor. She was treated for her high potassium with Kayexalate and was started on a bicarbonate drip for her metabolic acidosis today. Currently she denies any nausea or vomiting. She does have abdominal distention and discomfort diffusely. She admits to flatus. She did have toast thismorning for breakfast. Family and spouse is at bedside. She appears to be back to her baseline mental status. - Allergies Allergies: Allergies codeine Adverse Reaction (Verified 12/07/17 16:13) Hives pain medications Adverse Reaction (Intermediate, Uncoded 05/26/18 10:13) nausea/vomiting - Current Medications Current Medications: Current Medications Acetaminophen (Tylenol) 650 mg PO Q6H PRN PRN PRN Reason: PAIN Last Admin: 05/28/18 04:23 Dose: 650 mg Allopurinol (Zyloprim) 100 mg PO DAILY [facility] Last Admin: 05/28/18 10:06 Dose: 100 mg Amlodipine Besylate (Norvasc) 5 mg PO DAILY [facility] Last Admin: 05/28/18 10:06 Dose: 5 mg Atenolol (Tenormin (Beta Marilyn)) 100 mg PO DAILY [facility] Last Admin: 05/28/18 10:07 Dose: 100 mg Cholecalciferol (Vitamin D) 1,000 unit PO BID [facility] Last Admin: 05/28/18 10:07 Dose: 1,000 unit Dextrose (D50w Syringe) 0 gm IV X1 PRN; Protocol PRN Reason: Hypoglycemia Last Admin: 05/27/18 02:42 Dose: 12.5 gm Glucagon () 1 mg IM .X1 PRN PRN Reason: Hypoglycemia Hydralazine HCl (Apresoline Iv) 5 mg IV Q6H PRN PRN PRN Reason: BLOOD PRESSURE Sodium Bicarbonate 150 meq/ (Dextrose) 1,150 mls @ 75 mls/hr IV .[id number] [facility] Last Admin: 05/28/18 10:09 Dose: 75 mls/hr Sodium Chloride () 1,000 mls @ 50 mls/hr IV .Q20H [facility] Last Admin: 05/28/18 16:07 Dose: Not Given Insulin Human Lispro (Humalog Kwikpen (Bkc)) 0 unit SQ ACHS CIERRA PRN Reason: Protocol Last Admin: 05/28/18 16:14 Dose: 2 u Morphine Sulfate () 0.5 - 1 mg IV Q3H PRN PRN PRN Reason: SEVERE PAIN (6-10/10) Nutritional Formula (Lactose Free) (Ensure Enlive) 120 ml PO 4X/DAY [facility] Last Admin: 05/28/18 12:42 Dose: 120 ml Ondansetron HCl (Zofran) 4 mg IV Q8H PRN PRN PRN Reason: NAUSEA Pantoprazole Sodium (Protonix) 40 mg PO DAILY [facility] Last Admin: 05/28/18 10:07 Dose: 40 mg Sodium Chloride () 5 - 30 ml IV UD PRN PRN Reason: SALINE FLUSH Last Admin: 05/26/18 11:56 Dose: 10 ml Tramadol HCl (Ultram) 50 mg PO BID PRN PRN PRN Reason: MODERATE PAIN (4-5/10) - Social History Smoking Status: Never smoker Review of Systems Constitutional: Denies: Anorexia, Chills, Fever, Weakness Eyes: Denies: Blurred vision HEENT: Denies: Head Aches Cardiovascular: Denies: Chest Pain, Edema Respiratory: Reports: Cough. Denies: Shortness of Breath Gastrointestinal: Reports: Abdominal Pain, - - +flatus. Denies: Constipation, Diarrhea, Nausea, Vomiting Genitourinary: Denies: Dysuria, Retention Skin: Denies: Rash Neurological: Reports: - - Episode of confusion and mental status change earlier today.. Denies: Balance problems, Tremor, Seizures Psychiatric: Denies: Anxiety, Depression Hematologic/ Lymphatic: Reports: Anemia - Physical Exam General: Alert, Oriented x3, Cooperative, No apparent distress HEENT: PERRLA, EOMI Oral: Moist Mucosa Neck: Supple Lungs: Clear to auscultation Cardiovascular: Regular rate Abdomen: Bowel Sounds Present, Soft, Hypoactive Bowel Sounds, Distended, Tender Extremities: No edema Skin: No rashes Musculoskeletal: No Muscle Wasting Neurological: Cranial nerves II-XII grossly intact, Motor Exam 5/5 strength throughout Psych/Mental Status: Normal Affect, Appropriate, Alert and oriented to time, place, person, mood and affect Vital Signs Temp Pulse Resp BP Pulse Ox 98.7 F 98 16 121/69 H 95 05/28/18 13:50 05/28/18 15:15 05/28/18 13:50 05/28/18 13:50 05/28/18 13:50 Oxygen Flow Rate (L/min) 4 Oxygen Delivery Method Room Air Weight: 73.799 kg Body Mass Index (BMI) 29.0 Finger Stick Blood Glucose 159 Intake and Output for Last 24 Hours Intake Total 883 / 883 2873 / 2873 851 / 851 Output Total 600 / 600 650 / 650 300 / 300 Balance 283 / 283 2223 / 2223 551 / 551 Laboratory Tests Past 24 Hrs POC Glucose POC Glucose 297 H 217 H 275 H Clinical Impression(s) from Imaging Studies Brain CT 05/28/18 08:59 IMPRESSION: 1. Chronic involutional and ischemic changes of the brain. 2. No acute intracranial abnormality/acute CVA demonstrated. N.B. : The above information has been verbally conveyed by Jovita Bell MD to Donita Toscano, Referring Physician, on 05/28/2018 09:39:01 (ET). Electronically Signed: Jovita Bell MD at 9:36 EDT Tel , Service support , Brain MRI 05/28/18 09:46 IMPRESSION: Moderate periventricular senescent changes with no evidence of acute intracranial bleed, mass or ischemia. Electronically Signed: Chris WaldronDO at 14:58 EDT , Service support , Assessment/Plan 1. Acute on CKD stage IV with underlying diabetic nephropathy. Baseline creatinine 2.23 increased to 2.77 today. She is nonoliguric without uremic symptoms. Suspect prerenal event causing the acute renal failure. We will continue to monitor renal function. Continue with IV hydration since patient with decreased oral intake with recent surgery. 2. Acute cholecystitis, gallstone pancreatitis with elevated liver enzymes. Status post laparoscopic cholecystectomy. Liver enzymes improving along with pancreatitis. Abdomen remains distended with some diffuse abdominal discomfort. General surgery following 3. Acute hyperkalemia correct with medications and with bicarb drip. 4. Type 2 diabetes mellitus stable sugars 5. Hypertension with stable blood pressure 6. Hyponatremia sodium improved to 130. Continue hold off on her hydrochlorothiazide. 05/30/18 0745 <Electronically signed by Irma Arredondo DO> Date Irma Arredondo DO Cosigner Signature (if applicable): Date CC: Donita Toscano MD; Taylor Alvarenga MD; Irma Arredondo DO Signed BEDSIDE GLUCOSE Collected: 05/30/2018 Status: F Source: RYAN 6:38 AM [facility] REPOSITORY TYPE CODE TESTS RESULT OUT OF REFERENCE UNITS RANGE LAB L501.080 70-110 mg/dL High BEDSIDE GLU 348 Result Comment: MANAGEMENT OF PATIENT CARE PER NURSING PROTOCOL Performed By: #### L501.080 #### [facility] Laboratory Point [place] [address] LIVER PROFILE Collected: 05/30/2018 Status: F Source: RYAN 6:20 AM [facility] REPOSITORY TYPE CODE TESTS RESULT OUT OF RANGE REFERENCE UNITS LAB L501.1500 6.4-8.2 g/dL Low T PROT 5.4 LAB L501.1800 3.2-5.0 g/dL Low ALB 2.0 LAB L501.1950 2.2-4.2 g/dL Normal GLOB 3.4 LAB L501.4100 15-37 U/L High AST 141 LAB L501.4305 45-117 U/L High ALK P 209 LAB L501.4405 13-56 U/L High ALT 83 LAB L501.4600 0.20-1.00 mg/dL Normal T BILI 0.70 LAB L501.4700 0.00-0.30 mg/dL High D BILI 0.44 Performed By: #### L500.3400, L500.3600 #### [facility] [address] [place], [address] RENAL PROFILE Collected: 05/30/2018 Status: F Source: HAYTI 6:20 AM [facility] REPOSITORY TYPE CODE TESTS RESULT OUT OF RANGE REFERENCE UNITS LAB L501.0100 74-106 mg/dL High GLU 341 Result Comment: Glucose result greater than or equal to 200 mg/dL suggests DIABETES MELLITUS per A.D.A. criteria. Please note revised GLUCOSE reference range effective 2017. LAB L501.1000 7-18 mg/dL High BUN 50 LAB L501.1100 0.55-1.02 mg/dL High CREAT,SERUM 2.54 Result Comment: The validity of the calculated GFR AND GFRAA in patients over 70 years has not been determined. Clinical correlation is essential. LAB L501.1110 >60 mL/min Low EST GFR 20 Result Comment: Non- GFR Calc LAB L501.1115 >60 mL/min Low EST GFR - AA 24 Result Comment: GFR Calc LAB L501.1255 ml/min Normal Estimated CRCL 14.90 LAB L501.1300 10-20 RATIO Normal BUN/CRE 19.7 LAB L501.2200 8.5-10 mg/dL Low .1 CA 7.6 LAB L501.2300 2.5-4. mg/dL Normal 9 PHOS 3.7 LAB L501.5300 136-14 mmol/L Low 5 NA 127 LAB L501.5600 3.5-5. mmol/L Normal 1 K 4.3 LAB L501.5900 98-107 mmol/L Low CL 95 LAB L501.6100 21.0-3 mmol/L Low 2.0 CO2 20.0 Performed By: #### L500.3400, L500.3600 #### [facility] [address] [place], [address] BEDSIDE GLUCOSE Collected: 05/30/2018 Status: F Source: RYAN 3:31 AM [facility] REPOSITORY TYPE CODE TESTS RESULT OUT OF REFERENCE UNITS RANGE LAB L501.080 70-110 mg/dL High BEDSIDE GLU 330 Result Comment: MANAGEMENT OF PATIENT CARE PER NURSING PROTOCOL Performed By: #### L501.080 #### [facility] Laboratory Point of Care [address] [place] [address] BEDSIDE GLUCOSE Collected: 05/30/2018 Status: F Source: HAYTI 12:07 AM [facility] REPOSITORY TYPE CODE TESTS RESULT OUT OF REFERENCE UNITS RANGE LAB L501.080 70-110 mg/dL High BEDSIDE GLU 427 Result Comment: MANAGEMENT OF PATIENT CARE PER NURSING PROTOCOL Performed By: #### L501.080 #### [facility] Laboratory Point of Care [address] [place] [address] BEDSIDE GLUCOSE Collected: 05/29/2018 Status: F Source: RYAN 10:42 PM [facility] REPOSITORY TYPE CODE TESTS RESULT OUT OF REFERENCE UNITS RANGE LAB L501.080 70-110 mg/dL High alert BEDSIDE GLU 459 Result Comment: Dr Orders Followed MANAGEMENT OF PATIENT CARE PER NURSING PROTOCOL Performed By: #### L501.080 #### [facility] Point of Care [address] [place] [address] BEDSIDE GLUCOSE Collected: 05/29/2018 Status: F Source: RYAN 9:23 PM [facility] REPOSITORY TYPE CODE TESTS RESULT OUT OF REFERENCE UNITS RANGE LAB L501.080 70-110 mg/dL High alert BEDSIDE GLU 492 Result Comment: MANAGEMENT OF PATIENT CARE PER NURSING PROTOCOL Performed By: #### L501.080 #### [facility] Point of Care [address] [place] [address] BEDSIDE GLUCOSE Collected: 05/29/2018 Status: F Source: RYAN 9:20 PM [facility] REPOSITORY TYPE CODE TESTS RESULT OUT OF REFERENCE UNITS RANGE LAB L501.080 70-110 mg/dL High alert BEDSIDE GLU 492 Result Comment: Repeat Test MANAGEMENT OF PATIENT CARE PER NURSING PROTOCOL Performed By: #### L501.080 #### [facility] Point of Care [address] [place] [address] BEDSIDE GLUCOSE Collected: 05/29/2018 Status: F Source: RYAN 4:16 PM [facility] REPOSITORY TYPE CODE TESTS RESULT OUT OF REFERENCE UNITS RANGE LAB L501.080 70-110 mg/dL High BEDSIDE GLU 426 Result Comment: MANAGEMENT OF PATIENT CARE PER NURSING PROTOCOL Performed By: #### L501.080 #### [facility] Point of Care [address] [place] [address] BEDSIDE GLUCOSE Collected: 05/29/2018 Status: F Source: RYAN 11:31 AM [facility] REPOSITORY TYPE CODE TESTS RESULT OUT OF REFERENCE UNITS RANGE LAB L501.080 70-110 mg/dL High BEDSIDE GLU 378 Result Comment: MANAGEMENT OF PATIENT CARE PER NURSING PROTOCOL Performed By: #### L501.080 #### [facility] Point of Care [address] [place] [address] BEDSIDE GLUCOSE Collected: 05/29/2018 Status: F Source: RYAN 6:42 AM [facility] REPOSITORY TYPE CODE TESTS RESULT OUT OF REFERENCE UNITS RANGE LAB L501.080 70-110 mg/dL High BEDSIDE GLU 194 Result Comment: MANAGEMENT OF PATIENT CARE PER NURSING PROTOCOL Performed By: #### L501.080 #### [facility] Point of Care [address] [place] [address] CBC W/DIFF, AUTOMATED Collected: 05/29/2018 Status: F Source: RYAN 5:45 AM [facility] REPOSITORY TYPE CODE TESTS RESULT OUT OF RANGE REFERENCE UNITS LAB L100.1000 4.4-11.0 K/mm3 Normal WBC 8.8 LAB L100.1200 4.2-5.4 M/mm3 Low RBC 2.85 LAB L100.1300 12.0-15.0 g/dl Low HGB 9.4 LAB L100.1400 37-47 % Low HCT 28.1 LAB L100.1500 81-99 fL Normal MCV 98.6 LAB L100.1600 27.0-32.0 pg High MCH 33.0 LAB L100.1700 32-36 g/gl Normal MCHC 33.5 LAB L100.1810 11.6-14.6 % Normal RDW CV 14.0 LAB L100.1820 35.1-43.9 fl High RDW SD 50.3 LAB L100.1900 150-450 K/mm3 Normal PLT 202 LAB L100.2000 6.2-12.0 fl Normal MPV 10.7 LAB L100.2100 47-70 % High NEUT% 75.7 LAB L100.2200 19-41 % Low LY% 15.4 LAB L100.2300 0-10 % Normal MONO% 7.9 LAB L100.2400 0-5 % Normal EO% 0.7 LAB L100.2500 0-1 % Normal BASO% 0.1 LAB L100.2550 0.0-0.9 % Normal IM GRAN % 0.200 Result Comment: IG% - Immature Granulocytes (promyelocytes, myelocytes and metamyelocytes) > 1% indicates that a LEFT SHIFT is Present. LAB L100.2620 2.0-7.7 X10 3/uL Normal Absolute Neut 6.6 LAB L100.2720 0.83-4.51 X10 3/ul Normal Absolute Lymph 1.35 Performed By: #### L100.0100 #### [facility] [address] [place], [place], [address] RENAL PROFILE Collected: 05/29/2018 Status: F Source: HAYTI 5:45 AM [facility] REPOSITORY TYPE CODE TESTS RESULT OUT OF RANGE REFERENCE UNITS LAB L501.0100 74-106 mg/dL High GLU 182 Result Comment: Fasting Glucose result greater than or equal to 126 mg/dL suggests DIABETES MELLITUS per A.D.A. criteria. Please note revised GLUCOSE reference range effective 2017. LAB L501.1000 7-18 mg/dL High BUN 51 LAB L501.1100 0.55-1.02 mg/dL High CREAT,SERUM 2.36 Result Comment: The validity of the calculated GFR AND GFRAA in patients over 70 years has not been determined. Clinical correlation is essential. LAB L501.1110 >60 mL/min Low EST GFR 21 Result Comment: Non- GFR Calc LAB L501.1115 >60 mL/min Low EST GFR - AA 26 Result Comment: GFR Calc LAB L501.1255 ml/min Normal Estimated CRCL 16.04 LAB L501.1300 10-20 RATIO High BUN/CRE 21.6 LAB L501.1800 3.2-5. g/dL Low 0 ALB 2.0 LAB L501.2200 8.5-10 mg/dL Low .1 CA 7.4 LAB L501.2300 2.5-4. mg/dL Normal 9 PHOS 4.2 LAB L501.5300 136-14 mmol/L Low 5 NA 132 LAB L501.5600 3.5-5. mmol/L Normal 1 K 4.3 LAB L501.5900 98-107 mmol/L Normal CL 99 LAB L501.6100 21.0-3 mmol/L Low 2.0 CO2 18.0 Performed By: #### L500.3600 #### [facility] [address] BEDSIDE GLUCOSE Collected: 05/28/2018 Status: F Source: HAYTI 9:33 PM [facility] REPOSITORY TYPE CODE TESTS RESULT OUT OF REFERENCE UNITS RANGE LAB L501.080 70-110 mg/dL High BEDSIDE GLU 269 Result Comment: MANAGEMENT OF PATIENT CARE PER NURSING PROTOCOL Performed By: #### L501.080 #### [facility] Point [facility] [address] [place] [address] BEDSIDE GLUCOSE Collected: 05/28/2018 Status: F Source: HAYTI 4:13 PM [facility] REPOSITORY TYPE CODE TESTS RESULT OUT OF REFERENCE UNITS RANGE LAB L501.080 70-110 mg/dL High BEDSIDE GLU 297 Result Comment: MANAGEMENT OF PATIENT CARE PER NURSING PROTOCOL Performed By: #### L501.080 #### [facility] Point of Care [address] [place] [address] BASIC METABOLIC Collected: 05/28/2018 Status: F Source: HAYTI PROFILE (BMP) 11:45 AM [facility] REPOSITORY TYPE CODE TESTS RESULT OUT OF RANGE REFERENCE UNITS LAB L501.0100 74-106 mg/dL High GLU 214 Result Comment: Glucose result greater than or equal to 200 mg/dL suggests DIABETES MELLITUS per A.D.A. criteria. Please note revised GLUCOSE reference range effective 2017. LAB L501.1000 7-18 mg/dL High BUN 47 LAB L501.1100 0.55-1.02 mg/dL High CREAT,SERUM 2.77 Result Comment: The validity of the calculated GFR AND GFRAA in patients over 70 years has not been determined. Clinical correlation is essential. LAB L501.1110 >60 mL/min Low EST GFR 18 Result Comment: Non- GFR Calc LAB L501.1115 >60 mL/min Low EST GFR - AA 21 Result Comment: GFR Calc LAB L501.1255 ml/min Normal Estimated CRCL 13.67 LAB L501.1300 10-20 RATIO Normal BUN/CRE 17.0 LAB L501.2200 8.5-10 mg/dL Low .1 CA 7.8 LAB L501.5300 136-14 mmol/L Low 5 NA 130 LAB L501.5600 3.5-5. mmol/L High 1 K 5.2 LAB L501.5900 98-107 mmol/L Normal CL 102 LAB L501.6100 21.0-3 mmol/L Low 2.0 CO2 16.0 LAB L501.6200 5-15 Normal GAP 12 Performed By: #### L500.2500 #### [facility] [address] [place], [place], [address] BRAIN WITHOUT Observed: 05/28/2018 Status: F Source: RYAN CONTRAST 9:48 AM [facility] REPOSITORY [facility] Imaging Services [address] [place] [address] Brain without Contrast MR#: [id number] Acct: [id number] Name: JUN JOHNSON Rep #: [id number] : 1940 F 78 From: Chris Waldron DO PCP: Taylor Alvarenga MD Status: ADM ZEINA Study: Brain without Contrast Date of Exam: 05/28/18 Exam# [id number] Ordering Dr: Donita Toscano MD STUDY: MRI BRAIN WITHOUT CONTRAST REASON FOR EXAM: Female, 78 years old. Numbness and tingling post gallbladder surgery. TECHNIQUE: Standardized multiplanar fat and water weighted pulse sequences were obtained. COMPARISON: None. FINDINGS: There is mild cerebral atrophy with widening of the extra- axial spaces and ventricular dilatation. There are multiple white matter hyperintensities, distributed throughout the deep white matter tracts of the cerebral hemispheres, consistent with moderate chronic white matter ischemic changes. Normal T2* images of the brain without demonstrated susceptibility artifact. There is no demonstrated hemosiderin stain. There are prominent perivascular spaces (PVS) involving the basal ganglia. Prominent right temporal benign cystic versus Virchow-Lul space is present on the right measuring 1 cm. Normal thalami. There is no extra-axial fluid accumulation. Normal flow voids within the major intracranial circulation suggesting patency by spin echo criteria. Normal sella turcica, pituitary gland, infundibular stalk, optic chiasm and hypothalamus. Normal tectal plate and pineal gland. Normal midbrain, lynne and medulla. Normal cerebellum. Normal basal cisterns. Normal bilateral temporal bones. Normal bilateral internal auditory canals. No demonstrated orbital abnormality, within the constraints of a routine brain study. Normal visualized paranasal sinuses. Normal calvarium and skull base. Normal visualized soft tissue structures. Normal visualized upper cervical spine. MRI/Brain without Contrast IMPRESSION: Moderate periventricular senescent changes with no evidence of acute intracranial bleed, mass or ischemia. Electronically Signed: Chris Waldron DO at 14:58 EDT , Service support , CC: Donita Toscano MD; Taylor Alvarenga MD Claims Administrator: Signed BRAIN/HEAD WITHOUT Observed: 05/28/2018 Status: F Source: HAYTI CONTRAST 9:00 AM [facility] REPOSITORY [facility] Imaging Services [address] [place] [address] Brain/Head without Contrast MR#: [id number] Acct: [id number] Name: JUN JOHNSON Rep #: [id number] : 1940 F 78 From: Ruben Bell PCP: Taylor Alvarenga MD Status: ADM ZEINA Study: Brain/Head without Contrast Date of Exam: 05/28/18 Exam# [id number] Ordering Dr: Donita Toscano MD STUDY: CT BRAIN WITHOUT CONTRAST REASON FOR EXAM: Female, 78 years old. Question CVA. Post laparoscopic cholecystectomy. RADIATION DOSAGE (If Supplied By Facility): CTDIvol = ( 44.99 ) mGy, DLP = ( 745.49 ) mGycm TECHNIQUE: Transaxial CT imaging of the brain was performed without administration of intravenous contrast material. Individualized dose optimization techniques were used for this CT. COMPARISON: None. FINDINGS: Normal soft tissue structures. Normal calvarium. There is mild/moderate cerebral atrophy with widening of the extra-axial spaces and ventricular dilatation. There are areas of decreased attenuation within the white matter tracts of the supratentorial brain, consistent with microvascular disease changes. There is a 1.2 x 0.9 cm giant Virchow-Lul space seen at the right subinsular region. No demonstrated acute abnormality of the basal ganglia, thalami and brainstem. There is moderate cerebellar atrophy. There is no intracranial hemorrhage. There are no findings of an acute ischemic infarction. Atherosclerotic calcification of the cavernous ICAs and vertebrobasilar system. Normal visualized paranasal sinuses. CT/Brain/Head without Contrast IMPRESSION: 1. Chronic involutional and ischemic changes of the brain. 2. No acute intracranial abnormality/acute CVA demonstrated. N.B. : The above information has been verbally conveyed by Jovita Bell MD to Donita Toscano, Referring Physician, on 05/28/2018 09:39:01 (ET). Electronically Signed: Jovita Bell MD at 9:36 EDT Tel , Service support , CC: Donita Toscano MD; Taylor Alvarenga MD Claims Administrator: Signed BEDSIDE GLUCOSE Collected: 05/28/2018 Status: F Source: RYAN 8:56 AM [facility] REPOSITORY TYPE CODE TESTS RESULT OUT OF REFERENCE UNITS RANGE LAB L501.080 70-110 mg/dL High BEDSIDE GLU 154 Result Comment: MANAGEMENT OF PATIENT CARE PER NURSING PROTOCOL Performed By: #### L501.080 #### [facility] Point of Care [address] [place] [address] BEDSIDE GLUCOSE Collected: 05/28/2018 Status: F Source: RYAN 6:57 AM [facility] REPOSITORY TYPE CODE TESTS RESULT OUT OF REFERENCE UNITS RANGE LAB L501.080 70-110 mg/dL High BEDSIDE GLU 217 Result Comment: MANAGEMENT OF PATIENT CARE PER NURSING PROTOCOL Performed By: #### L501.080 #### [facility] Point of Care [address] [place], [place] [address] CBC W/DIFF, AUTOMATED Collected: 05/28/2018 Status: F Source: RYAN 6:30 AM [facility] REPOSITORY TYPE CODE TESTS RESULT OUT OF RANGE REFERENCE UNITS LAB L100.1000 4.4-11.0 K/mm3 Normal WBC 9.1 LAB L100.1200 4.2-5.4 M/mm3 Low RBC 2.81 LAB L100.1300 12.0-15.0 g/dl Low HGB 9.4 LAB L100.1400 37-47 % Low HCT 28.3 LAB L100.1500 81-99 fL High MCV 100.7 LAB L100.1600 27.0-32.0 pg High MCH 33.5 LAB L100.1700 32-36 g/gl Normal MCHC 33.2 LAB L100.1810 11.6-14.6 % Normal RDW CV 13.3 LAB L100.1820 35.1-43.9 fl High RDW SD 47.2 LAB L100.1900 150-450 K/mm3 Normal PLT 196 LAB L100.2000 6.2-12.0 fl Normal MPV 11.0 LAB L100.2100 47-70 % High NEUT% 75.8 LAB L100.2200 19-41 % Low LY% 14.9 LAB L100.2300 0-10 % Normal MONO% 8.9 LAB L100.2400 0-5 % Normal EO% 0.0 LAB L100.2500 0-1 % Normal BASO% 0.1 LAB L100.2550 0.0-0.9 % Normal IM GRAN % 0.300 Result Comment: IG% - Immature Granulocytes (promyelocytes, myelocytes and metamyelocytes) > 1% indicates that a LEFT SHIFT is Present. LAB L100.2620 2.0-7.7 X10 3/uL Normal Absolute Neut 6.9 LAB L100.2720 0.83-4.51 X10 3/ul Normal Absolute Lymph 1.35 Performed By: #### L100.0100 #### [facility] [address] [place], [address] COMPREHENSIVE METABOLIC Collected: 05/28/2018 Status: F Source: [facility] 6:30 AM [facility] REPOSITORY TYPE CODE TESTS RESULT OUT OF RANGE REFERENCE UNITS LAB L501.0100 74-106 mg/dL High GLU 209 Result Comment: Glucose result greater than or equal to 200 mg/dL suggests DIABETES MELLITUS per A.D.A. criteria. Please note revised GLUCOSE reference range effective 2017. LAB L501.1000 7-18 mg/dL High BUN 46 LAB L501.1100 0.55-1.02 mg/dL High CREAT,SERUM 2.66 Result Comment: The validity of the calculated GFR AND GFRAA in patients over 70 years has not been determined. Clinical correlation is essential. LAB L501.1110 >60 mL/min Low EST GFR 19 Result Comment: Non- GFR Calc LAB L501.1115 >60 mL/min Low EST GFR - AA 22 Result Comment: GFR Calc LAB L501.1255 ml/min Normal Estimated CRCL 14.23 LAB L501.1300 10-20 RATIO Normal BUN/CRE 17.3 LAB L501.1500 6.4-8. g/dL Low 2 T PROT 5.5 LAB L501.1800 3.2-5. g/dL Low 0 ALB 2.0 LAB L501.1950 2.2-4. g/dL Normal 2 GLOB 3.5 LAB L501.2000 0.9-2. RATIO Low 4 A/G 0.6 LAB L501.2200 8.5-10 mg/dL Low .1 CA 7.6 LAB L501.4100 15-37 U/L High AST 215 LAB L501.4305 45-117 U/L High ALK P 204 LAB L501.4405 13-56 U/L High ALT 108 LAB L501.4600 0.20-1 mg/dL Normal .00 T BILI 0.70 LAB L501.5300 136-14 mmol/L Low 5 NA 130 LAB L501.5600 3.5-5. mmol/L High 1 K 5.5 LAB L501.5900 98-107 mmol/L Normal CL 104 LAB L501.6100 21.0-3 mmol/L Low 2.0 CO2 14.0 LAB L501.6200 5-15 Normal GAP 12 Performed By: #### L500.4050 #### [facility] [address] [facility] [id number] BEDSIDE GLUCOSE Collected: 05/27/2018 Status: F Source: HAYTI 9:29 PM [facility] REPOSITORY TYPE CODE TESTS RESULT OUT OF REFERENCE UNITS RANGE LAB L501.080 70-110 mg/dL High BEDSIDE GLU 275 Result Comment: MANAGEMENT OF PATIENT CARE PER NURSING PROTOCOL Performed By: #### L501.080 #### [facility] Point of Care [address] [place] [address] BEDSIDE GLUCOSE Collected: 05/27/2018 Status: F Source: HAYTI 4:16 PM [facility] REPOSITORY TYPE CODE TESTS RESULT OUT OF REFERENCE UNITS RANGE LAB L501.080 70-110 mg/dL High BEDSIDE GLU 171 Result Comment: MANAGEMENT OF PATIENT CARE PER NURSING PROTOCOL Performed By: #### L501.080 #### [facility] Point of Care [address] [place], [place] [id number] OPERATIVE REPORT Observed: 05/27/2018 Status: F Source: RYAN 4:08 PM [facility] REPOSITORY [facility] Medical Records Department [address] [place] [address] Operative Report 05/27/18 1421 MR#: [id number] Acct: [id number] Name: JUN JOHNSON Rep #: [id number] : 1940 78 From: Massiel Puente MD PCP: Taylor Alvarenga MD Status: ADM ZEINA Y Location: [address] Report of Operation Date of Procedure: 05/27/18 Pre-Operative Diagnosis: Acute cholecystitis, cholelithiasis, elevated liver function Post-Operative Diagnosis: Acute cholecystitis, cholelithiasis, abdominal ascites, fibrosis of the liver Surgery/Procedure Performed:: Laparoscopic cholecystectomy with cholangiograms, wedge biopsy liver. neonatal nurse: Ramos Saxena Type of Anesthesia:: General/Supplemental Anesthesiologist: Dennis Mccormick Special Medications: Patient previously on Cefotan 2 g IV for cholecystitis Specimen's removed: Gallbladder and gallstones Estimated Blood Loss (mL): < 40 cc Fluids Replaced: 1200 cc Description of Procedure: Indications this is a 78 year-old female who developed abdominal pain/nausea/vomiting and on workup was found to have cholelithiasis, acute cholecystitis, elevated liver enzymes with a normal common bile duct and wbc with a left shift. Laparoscopic cholecystectomy was elected. Description procedure: The patient was placed on operating table in supine position. General Anesthesia was induced. A timeout was completed verifying correct patient, procedure, site, position, social, and special equipment prior to beginning procedure. An orogastric tube was placed. The abdomen was prepped and draped in usual sterile fashion. An incision was made in the natural skin line above the umbilicus. The fascia was elevated and incised. The peritoneum was elevated and incised. Entry into the peritoneum was confirmed visually and no bowel was noted in the vicinity of the incision. Montalvo trocar was placed. The abdomen was insufflated with carbon dioxide to a pressure of 12-15 mmHg. Patient tolerated insufflation well. The laparoscope was then inserted and abdomen inspected. No injuries from initial trocar placement were noted. Additional trochars were then inserted in the following locations 5 mm trocar in the epigastrium and 2 more 5 mm trochars along the right costal margin. The abdomen was inspected no abnormalities were found. The table is placed in Trendelenburg position with the right side up. Abdominal ascites over the liver was suctioned. The adhesions between the gallbladder and omentum were pulled down with gentle pressure. The dome of the gallbladder was grasped with atraumatic grasper passed through the lateral port and retracted over the dome of the liver. Infundibulum was then grasped with atraumatic grasper through the midclavicular port and retracted to the right lower quadrant. Due to the chronic inflammation the gallbladder wall was quite thin and a hole was made in the infundibulum. Gallstones were retrieved into laparoscopic retrieval bag. The peritoneum overlying the gallbladder infundibulum was then incised and cystic duct was identified circumferentially dissected. Ranfac catheter was used to obtain cholangiograms. Cholangiograms did show good flow of bile into the duodenum with no filling defects as well as the right and left bile ducts. The cystic duct was then doubly clipped and divided close to the gallbladder. With the chronic inflammation as well as the fibrotic liver unable to clearly see the artery the gallbladder from the liver bed except for a small amount of the posterior wall which was cauterized. The gallbladder then dissected from its peritoneal attachments by electrocautery. There was a small amount of bleeding on the gallbladder bed which was controlled with argon beam. Also small wedge of liver tissue was taken with scissors for liver biopsy and hemostasis was obtained with the argon beam. Hemostasis was checked and the gallbladder and stones were removed using the endoscopic retrieval bag through the umbilical port. The gallbladder is passed off table as specimen. The gallbladder fossa was copiously irrigated with saline and hemostasis obtained. There is no evidence of bleeding from the gallbladder fossa or cystic artery leakage of bile from the cystic duct stump. Secondary trochars removed under direct vision. No bleeding was noted the trocar sites. The laparoscope was withdrawn and umbilical trocar removed. The abdomen was allowed to collapse. The fascia of the 12 mm trocar was closed with a [id number] 0 Vicryl suture. The skin was closed with sutures of 4-0 Monocryl and Steri-Strips. The orogastric tube was removed and the patient was extubated. The patient tolerated procedure well and was taken to the postanesthesia care unit in stable condition. - Complications none 05/27/18 1608 <Electronically signed by Massiel Puente MD> Date Massiel Puente MD CC: Donita Toscano MD; Taylor Alvarenga MD; Irma Arredondo DO; Massiel Puente MD Signed BEDSIDE GLUCOSE Collected: 05/27/2018 Status: F Source: RYAN 2:42 PM [facility] REPOSITORY TYPE CODE TESTS RESULT OUT OF REFERENCE UNITS RANGE LAB L501.080 70-110 mg/dL High BEDSIDE GLU 159 Result Comment: MANAGEMENT OF PATIENT CARE PER NURSING PROTOCOL Performed By: #### L501.080 #### [facility] Point of Care [address] [place] [address] GALLBLADDER Observed: 05/27/2018 Status: F Source: RYAN 11:05 AM [facility] REPOSITORY Patient: JUN JOHNSON : 1940 (78/F) Acct Num: [id number] Phys: Kwame BRYSON,Massiel Unit Num: [id number] Loc: PCU [id number] Specimen: [id number] Received: 05/27/18 - 8 Spec Type: GALLBLADDE TISSUES 1 TISSUES: A. Gallbladder, NOS B. Liver, NOS ADDENDUM Addendum Number 1 This case is discussed with Dr. Siu 07/19/18. The presence of interface hepatitis with lymphocytic and smaller population of plasmacytic infiltrate extending focally into bordering hepatocytes, although nonspecific, may be seen in patients with autoimmune hepatitis. AM:chica 07/19/18 Case has been reviewed in consultation with Dr. Rivera who concurs with the above diagnosis. IDC:SJ Addendum Signed Sander [place] 07/19/18 <signature on file> COMMENT Clinical correlation is suggested. GROSS DESCRIPTION A - Received is one container labeled with the patient's name and designated gallbladder. The specimen consists of a previously opened gallbladder measuring 6 x 3.5 x 1.5 cm. The external surface is smooth and glistening. Focally, it is granular, hemorrhagic and contains cautery artifact. The lumen of the gallbladder or the specimen container does not contain stones. The gallbladder mucosa is bile-stained and free of mass lesions. The gallbladder wall averages 0.1 cm in thickness and is free of mass lesions. Yard Coupler sections of the gallbladder and the cystic duct are submitted in one cassette. B - Received in fixative is one container labeled with the patient's name and designated wedge liver biopsy. The specimen consists of an irregular fragment of negron tissue measuring 1.2 x 0.5 x 0.2 cm. The specimen is submitted in its entirety in one cassette. / AM: 05/30/18 TC:3 CPT: 88601, 17891, 95848 x5 HEADER OPERATION: Laparoscopic cholecystectomy with IOC PRE-OP DIAGNOSIS: Acute Cholelithiasis TISSUE SUBMITTED: A. Gallbladder, B. Wedge liver biopsy MICROSCOPIC DESCRIPTION Slides are reviewed. B. Sections show mild limiting plate necrosis with focal lobular necrosis. Trichrome stain with matched control reveals bridging fibrosis. Broad band fibrosis is not identified. The biopsy contains hepatic capsule. Iron stain with matched control does not reveal intraparenchymal deposition of iron. PAS with and without diastase do not reveal accumulation of abnormal proteins. Reticulin stain with matched control reveals a normal hepatic architecture. MICROSCOPIC DIAGNOSIS A. Gallbladder, cholecystectomy: Chronic cholecystitis. B. Liver, wedge biopsy: Chronic hepatitis, grade 2, stage 3 (modified Knodell system). AM: 05/31/18 Signed Sander [facility] 05/31/18 <signature on file> Performed By: #### PGALL #### [facility] [address] [place], [address] BEDSIDE GLUCOSE Collected: 05/27/2018 Status: F Source: HAYTI 10:15 AM [facility] REPOSITORY TYPE CODE TESTS RESULT OUT OF REFERENCE UNITS RANGE LAB L501.080 70-110 mg/dL High BEDSIDE GLU 127 Result Comment: MANAGEMENT OF PATIENT CARE PER NURSING PROTOCOL Performed By: #### L501.080 #### [facility] Point of Care [address] [place] [address] BEDSIDE GLUCOSE Collected: 05/27/2018 Status: F Source: RYAN 9:16 AM [facility] REPOSITORY TYPE CODE TESTS RESULT OUT OF RANGE REFERENCE UNITS LAB L501.080 70-110 mg/dL Normal BEDSIDE GLU 106 Result Comment: MANAGEMENT OF PATIENT CARE PER NURSING PROTOCOL Performed By: #### L501.080 #### [facility] Point of Care [address] [place] [address] BEDSIDE GLUCOSE Collected: 05/27/2018 Status: F Source: RYAN 8:07 AM [facility] REPOSITORY TYPE CODE TESTS RESULT OUT OF RANGE REFERENCE UNITS LAB L501.080 70-110 mg/dL Normal BEDSIDE GLU 87 Result Comment: MANAGEMENT OF PATIENT CARE PER NURSING PROTOCOL Performed By: #### L501.080 #### [facility] Point of Care [address] [place] [address] BEDSIDE GLUCOSE Collected: 05/27/2018 Status: F Source: RYAN 6:56 AM [facility] REPOSITORY TYPE CODE TESTS RESULT OUT OF RANGE REFERENCE UNITS LAB L501.080 70-110 mg/dL Normal BEDSIDE GLU 86 Result Comment: MANAGEMENT OF PATIENT CARE PER NURSING PROTOCOL Performed By: #### L501.080 #### [facility] Point of Care [address] [place] [address] BEDSIDE GLUCOSE Collected: 05/27/2018 Status: F Source: RYAN 6:01 AM [facility] REPOSITORY TYPE CODE TESTS RESULT OUT OF RANGE REFERENCE UNITS LAB L501.080 70-110 mg/dL Normal BEDSIDE GLU 88 Result Comment: MANAGEMENT OF PATIENT CARE PER NURSING PROTOCOL Performed By: #### L501.080 #### [facility] Point of Care [address] [place] [address] CBC W/DIFF, AUTOMATED Collected: 05/27/2018 Status: F Source: RYAN 5:32 AM [facility] REPOSITORY TYPE CODE TESTS RESULT OUT OF RANGE REFERENCE UNITS LAB L100.1000 4.4-11.0 K/mm3 Normal WBC 9.1 LAB L100.1200 4.2-5.4 M/mm3 Low RBC 3.03 LAB L100.1300 12.0-15.0 g/dl Low HGB 10.0 LAB L100.1400 37-47 % Low HCT 29.8 LAB L100.1500 81-99 fL Normal MCV 98.3 LAB L100.1600 27.0-32.0 pg High MCH 33.0 LAB L100.1700 32-36 g/gl Normal MCHC 33.6 LAB L100.1810 11.6-14.6 % Normal RDW CV 13.6 LAB L100.1820 35.1-43.9 fl High RDW SD 48.9 LAB L100.1900 150-450 K/mm3 Normal PLT 212 LAB L100.2000 6.2-12.0 fl Normal MPV 11.0 LAB L100.2100 47-70 % Normal NEUT% 65.1 LAB L100.2200 19-41 % Normal LY% 24.1 LAB L100.2300 0-10 % Normal MONO% 8.9 LAB L100.2400 0-5 % Normal EO% 1.4 LAB L100.2500 0-1 % Normal BASO% 0.4 LAB L100.2550 0.0-0.9 % Normal IM GRAN % 0.100 Result Comment: IG% - Immature Granulocytes (promyelocytes, myelocytes and metamyelocytes) > 1% indicates that a LEFT SHIFT is Present. LAB L100.2620 2.0-7.7 X10 3/uL Normal Absolute Neut 5.9 LAB L100.2720 0.83-4.51 X10 3/ul Normal Absolute Lymph 2.19 Performed By: #### L100.0100 #### [facility] [address] [place], [place], [address] BASIC METABOLIC Collected: 05/27/2018 Status: F Source: RYAN PROFILE ([facility]) 5:32 AM [facility] REPOSITORY TYPE CODE TESTS RESULT OUT OF RANGE REFERENCE UNITS LAB L501.0100 74-106 mg/dL Normal GLU 79 Result Comment: Please note revised GLUCOSE reference range effective 2017. LAB L501.1000 7-18 mg/dL High BUN 47 LAB L501.1100 0.55-1.02 mg/dL High CREAT,SERUM 2.46 Result Comment: The validity of the calculated GFR AND GFRAA in patients over 70 years has not been determined. Clinical correlation is essential. LAB L501.1110 >60 mL/min Low EST GFR 20 Result Comment: Non- GFR Calc LAB L501.1115 >60 mL/min Low EST GFR - AA 25 Result Comment: GFR Calc LAB L501.1255 ml/min Normal Estimated CRCL 15.39 LAB L501.1300 10-20 RATIO Normal BUN/CRE 19.1 LAB L501.2200 8.5-10 mg/dL Low .1 CA 7.9 LAB L501.5300 136-14 mmol/L Low 5 NA 130 LAB L501.5600 3.5-5. mmol/L Normal 1 K 4.6 LAB L501.5900 98-107 mmol/L Normal CL 100 LAB L501.6100 21.0-3 mmol/L Low 2.0 CO2 15.0 LAB L501.6200 5-15 Normal GAP 15 Performed By: #### L500.2500, L500.3400, L501.2450 #### [facility] [address] [place], [place], [id number] LIVER PROFILE Collected: 05/27/2018 Status: F Source: [place] 5:32 AM [facility] REPOSITORY TYPE CODE TESTS RESULT OUT OF RANGE REFERENCE UNITS LAB L501.1500 6.4-8.2 g/dL Low T PROT 6.2 LAB L501.1800 3.2-5.0 g/dL Low ALB 2.3 LAB L501.1950 2.2-4.2 g/dL Normal GLOB 3.9 LAB L501.4100 15-37 U/L High AST 311 LAB L501.4305 45-117 U/L High ALK P 255 LAB L501.4405 13-56 U/L High ALT 136 LAB L501.4600 0.20-1.00 mg/dL Normal T BILI 0.90 LAB L501.4700 0.00-0.30 mg/dL High D BILI 0.58 Performed By: #### L500.2500, L500.3400, L501.2450 #### [facility] [address] [place], [address] LIPASE Collected: 05/27/2018 Status: F Source: [place] 5:32 AM [facility] REPOSITORY TYPE CODE TESTS RESULT OUT OF REFERENCE UNITS RANGE LAB L501.2450 73-393 U/L High LIPASE 655 Performed By: #### L500.2500, L500.3400, L501.2450 #### [facility] [address] [place], [address] MAGNESIUM Collected: 05/27/2018 Status: F Source: RYAN 5:32 AM [facility] REPOSITORY Order Comment: Comments: add to labs TYPE CODE TESTS RESULT OUT OF RANGE REFERENCE UNITS LAB L501.5200 1.6-2.6 mg/dL Normal MG 2.0 Performed By: #### L501.5200 #### [facility] [address] [place], [address] BEDSIDE GLUCOSE Collected: 05/27/2018 Status: F Source: [place] 5:09 AM [facility] REPOSITORY TYPE CODE TESTS RESULT OUT OF RANGE REFERENCE UNITS LAB L501.080 70-110 mg/dL Normal BEDSIDE GLU 82 Result Comment: MANAGEMENT OF PATIENT CARE PER NURSING PROTOCOL Performed By: #### L501.080 #### [facility] Point of Care [address] [place] [address] BEDSIDE GLUCOSE Collected: 05/27/2018 Status: F Source: RYAN 3:18 AM [facility] REPOSITORY TYPE CODE TESTS RESULT OUT OF REFERENCE UNITS RANGE LAB L501.080 70-110 mg/dL High BEDSIDE GLU 116 Result Comment: MANAGEMENT OF PATIENT CARE PER NURSING PROTOCOL Performed By: #### L501.080 #### [facility] Point of Care [address] [place] [address] BEDSIDE GLUCOSE Collected: 05/27/2018 Status: F Source: RYAN 2:40 AM [facility] REPOSITORY TYPE CODE TESTS RESULT OUT OF REFERENCE UNITS RANGE LAB L501.080 70-110 mg/dL Low BEDSIDE GLU 56 Result Comment: MANAGEMENT OF PATIENT CARE PER NURSING PROTOCOL Performed By: #### L501.080 #### [facility] Point of Care [address] [place] [address] CHOLANGIOGRAM/ O Observed: 05/27/2018 Status: F Source: RYAN R,INITIAL 12:08 AM [facility] REPOSITORY [facility] Imaging Services [address] [address] Cholangiogram/ O R,Initial MR#: [id number] Acct: [id number] Name: JUN JOHNSON Rep #: [id number] : 1940 F 78 From: Rolando Beauchamp MD PCP: Taylor Alvarenga MD Status: PRE SDC Study: Cholangiogram/ O R,Initial Date of Exam: 05/27/18 Exam# [id number] Ordering Dr: Massiel Puente MD STUDY: INTRAOPERATIVE CHOLANGIOGRAM. REASON FOR EXAM: Female, 78 years old. Laparoscopic cholecystectomy. FLUOROSCOPY TIME (if supplied): (0:09) minutes/seconds TECHNIQUE: An intraoperative cardiogram was performed by the surgeon. Imaging was submitted. COMPARISON: None. FINDINGS: The intrahepatic biliary ducts are unremarkable. The common bile duct is not dilated. No intraluminal filling defect is seen. There is free flow of contrast into the duodenum. RAD/Cholangiogram/ O R,Initial IMPRESSION: Unremarkable intraoperative cholangiogram. Electronically Signed: Rolando Beauchamp MD at 13:59 EDT Tel [phone], Service support , CC: Taylor Alvarenga MD; Massiel Puente MD Claims Administrator: Signed BEDSIDE GLUCOSE Collected: 05/26/2018 Status: F Source: RYAN 10:26 PM [facility] REPOSITORY TYPE CODE TESTS RESULT OUT OF RANGE REFERENCE UNITS LAB L501.080 70-110 mg/dL Normal BEDSIDE GLU 109 Result Comment: MANAGEMENT OF PATIENT CARE PER NURSING PROTOCOL Performed By: #### L501.080 #### [facility] Point of Care [address] [place] [address] BEDSIDE GLUCOSE Collected: 05/26/2018 Status: F Source: RYAN 9:30 PM [facility] REPOSITORY TYPE CODE TESTS RESULT OUT OF REFERENCE UNITS RANGE LAB L501.080 70-110 mg/dL Low BEDSIDE GLU 69 Result Comment: MANAGEMENT OF PATIENT CARE PER NURSING PROTOCOL Performed By: #### L501.080 #### [facility] Point of Care [address] [place] [address] OSMOLALITY, SERUM Collected: 05/26/2018 Status: F Source: RYAN 5:04 PM [facility] REPOSITORY Order Comment: Comments: as add on test TYPE CODE TESTS RESULT OUT OF RANGE REFERENCE UNITS LAB L501.7300 280-301 mOsm/KG Low 275 OSMOLALITY,S ER Performed By: #### L501.7300 #### [facility] [address] [place], [address] BASIC METABOLIC Collected: 05/26/2018 Status: F Source: RYAN PROFILE (BMP) 5:04 PM [facility] REPOSITORY Order Comment: Comments: aS ADD ON TEST TYPE CODE TESTS RESULT OUT OF RANGE REFERENCE UNITS LAB L501.0100 74-106 mg/dL High GLU 167 Result Comment: Fasting Glucose result greater than or equal to 126 mg/dL suggests DIABETES MELLITUS per A.D.A. criteria. Please note revised GLUCOSE reference range effective 2017. LAB L501.1000 7-18 mg/dL High BUN 51 LAB L501.1100 0.55-1.02 mg/dL High CREAT,SERUM 2.23 Result Comment: The validity of the calculated GFR AND GFRAA in patients over 70 years has not been determined. Clinical correlation is essential. LAB L501.1110 >60 mL/min Low EST GFR 23 Result Comment: Non- GFR Calc LAB L501.1115 >60 mL/min Low EST GFR - AA 28 Result Comment: GFR Calc LAB L501.1255 ml/min Normal Estimated CRCL 16.97 LAB L501.1300 10-20 RATIO High BUN/CRE 22.9 LAB L501.2200 8.5-10 mg/dL Low .1 CA 7.7 LAB L501.5300 136-14 mmol/L Low 5 NA 127 LAB L501.5600 3.5-5. mmol/L Normal 1 K 4.7 LAB L501.5900 98-107 mmol/L Low CL 96 LAB L501.6100 21.0-3 mmol/L Low 2.0 CO2 15.0 LAB L501.6200 5-15 High GAP 16 Performed By: #### L500.2500, L503.6030 #### [facility] [address] [place], [address] IRON+IRON BINDING Collected: 05/26/2018 Status: F Source: [facility] CAPACITY 5:04 PM [facility] REPOSITORY Order Comment: Comments: aS ADD ON TEST TYPE CODE TESTS RESULT OUT OF RANGE REFERENCE UNITS LAB L503.6075 250-450 ug/dL TIBC Normal 306 LAB L503.6150 50-170 ug/dL IRON Normal 69 LAB L503.6250 15.0-55.0 % IRON Normal SATURATION 22.5 Performed By: #### L500.2500, L503.6030 #### [facility] [address] [place], [address] URINE SODIUM Collected: 05/26/2018 Status: F Source: [facility] 4:50 PM [facility] REPOSITORY TYPE CODE TESTS RESULT OUT OF RANGE REFERENCE UNITS LAB L501.5500 Not Establ. mmol/L Normal UR NA 50 Performed By: #### L501.5500 #### [facility] [address] [place], [address] BEDSIDE GLUCOSE Collected: 05/26/2018 Status: F Source: [facility] 4:39 PM [facility] [facility] REPOS[facility]ORY TYPE CODE TESTS RESULT OUT OF REFERENCE UNITS RANGE LAB L501.080 70-110 mg/dL High BEDSIDE GLU 196 Result Comment: MANAGEMENT OF PATIENT CARE PER NURSING PROTOCOL Performed By: #### L501.080 #### [facility] Point of Care [address] [place] [address] BEDSIDE GLUCOSE Collected: 05/26/2018 Status: F Source: HAYTI 4:13 PM [facility] REPOSITORY TYPE CODE TESTS RESULT OUT OF REFERENCE UNITS RANGE LAB L501.080 70-110 mg/dL Low BEDSIDE GLU 64 Result Comment: MANAGEMENT OF PATIENT CARE PER NURSING PROTOCOL Performed By: #### L501.080 #### [facility] Point of Care [address] [place], [place] [address] HEMOGLOBIN A1C Collected: 05/26/2018 Status: F Source: HAYTI 1:00 PM [facility] REPOSITORY TYPE CODE TESTS RESULT OUT OF RANGE REFERENCE UNITS LAB L501.9985 4.2-6.3 % Normal HGB A1C 6.2 Performed By: #### L501.9985 #### [facility] [address] [place], [place], [address] CBC W/DIFF, AUTOMATED Collected: 05/26/2018 Status: F Source: HAYTI 1:00 PM [facility] REPOSITORY TYPE CODE TESTS RESULT OUT OF RANGE REFERENCE UNITS LAB L100.1000 4.4-11.0 K/mm3 Normal WBC 9.6 LAB L100.1200 4.2-5.4 M/mm3 Low RBC 3.19 LAB L100.1300 12.0-15.0 g/dl Low HGB 10.6 LAB L100.1400 37-47 % Low HCT 31.2 LAB L100.1500 81-99 fL Normal MCV 97.8 LAB L100.1600 27.0-32.0 pg High MCH 33.2 LAB L100.1700 32-36 g/gl Normal MCHC 34.0 LAB L100.1810 11.6-14.6 % Normal RDW CV 13.4 LAB L100.1820 35.1-43.9 fl High RDW SD 47.8 LAB L100.1900 150-450 K/mm3 Normal PLT 216 LAB L100.2000 6.2-12.0 fl Normal MPV 10.7 LAB L100.2100 47-70 % High NEUT% 73.9 LAB L100.2200 19-41 % Low LY% 17.6 LAB L100.2300 0-10 % Normal MONO% 7.3 LAB L100.2400 0-5 % Normal EO% 0.7 LAB L100.2500 0-1 % Normal BASO% 0.3 LAB L100.2550 0.0-0.9 % Normal IM GRAN % 0.200 Result Comment: IG% - Immature Granulocytes (promyelocytes, myelocytes and metamyelocytes) > 1% indicates that a LEFT SHIFT is Present. LAB L100.2620 2.0-7.7 X10 3/uL Normal Absolute Neut 7.1 LAB L100.2720 0.83-4.51 X10 3/ul Normal Absolute Lymph 1.68 Performed By: #### L100.0100 #### [facility] [address] [place], [address] BASIC METABOLIC Collected: 05/26/2018 Status: F Source: HAYTI PROFILE (BMP) 1:00 PM [facility] REPOSITORY TYPE CODE TESTS RESULT OUT OF RANGE REFERENCE UNITS LAB L501.0100 74-106 mg/dL High GLU 159 Result Comment: Fasting Glucose result greater than or equal to 126 mg/dL suggests DIABETES MELLITUS per A.D.A. criteria. Please note revised GLUCOSE reference range effective 2017. LAB L501.1000 7-18 mg/dL High BUN 49 LAB L501.1100 0.55-1.02 mg/dL High CREAT,SERUM 2.32 Result Comment: The validity of the calculated GFR AND GFRAA in patients over 70 years has not been determined. Clinical correlation is essential. LAB L501.1110 >60 mL/min Low EST GFR 22 Result Comment: Non- GFR Calc LAB L501.1115 >60 mL/min Low EST GFR - AA 26 Result Comment: GFR Calc LAB L501.1255 ml/min Normal Estimated CRCL 16.32 LAB L501.1300 10-20 RATIO High BUN/CRE 21.1 LAB L501.2200 8.5-10 mg/dL Low .1 CA 7.8 LAB L501.5300 136-14 mmol/L Low 5 NA 122 LAB L501.5600 3.5-5. mmol/L Normal 1 K 5.0 LAB L501.5900 98-107 mmol/L Low CL 95 LAB L501.6100 21.0-3 mmol/L Low 2.0 CO2 17.0 LAB L501.6200 5-15 Normal GAP 10 Performed By: #### L500.2500, L500.3400, L501.2450 #### [facility] [address] [place], [address] LIVER PROFILE Collected: 05/26/2018 Status: F Source: RYAN 1:00 PM [facility] REPOSITORY TYPE CODE TESTS RESULT OUT OF RANGE REFERENCE UNITS LAB L501.1500 6.4-8.2 g/dL Normal T PROT 6.7 LAB L501.1800 3.2-5.0 g/dL Low ALB 2.6 LAB L501.1950 2.2-4.2 g/dL Normal GLOB 4.1 LAB L501.4100 15-37 U/L High AST 331 LAB L501.4305 45-117 U/L High ALK P 310 LAB L501.4405 13-56 U/L High ALT 148 LAB L501.4600 0.20-1.00 mg/dL Normal T BILI 0.90 LAB L501.4700 0.00-0.30 mg/dL High D BILI 0.68 Performed By: #### L500.2500, L500.3400, L501.2450 #### [facility] [address] [place], [address] LIPASE Collected: 05/26/2018 Status: F Source: RYAN 1:00 PM [facility] REPOSITORY TYPE CODE TESTS RESULT OUT OF REFERENCE UNITS RANGE LAB L501.2450 73-393 U/L High LIPASE 829 Performed By: #### L500.2500, L500.3400, L501.2450 #### [facility] [address] [place], [address] BEDSIDE GLUCOSE Collected: 05/26/2018 Status: F Source: RYAN 12:08 PM [facility] REPOSITORY TYPE CODE TESTS RESULT OUT OF REFERENCE UNITS RANGE LAB L501.080 70-110 mg/dL High BEDSIDE GLU 205 Result Comment: MANAGEMENT OF PATIENT CARE PER NURSING PROTOCOL Performed By: #### L501.080 #### [facility] Point of Care [address] [place] [address] SURGERY VISIT REPORT Observed: 05/26/2018 Status: F Source: RYAN 10:36 AM [facility] REPOSITORY [facility] [address] [place] [address] OFFICE VISIT Date of Service: 05/26/18 MR#: [id number] Acct: [id number] Name: JUN JOHNSON Rep #: [id number] : 1940 Provider: Massiel Puente MD Age/Sex: 78/F Location: [facility] Status: Signed Intake Vital Signs05/26/18 Height 5 ft 3 in 05/26/18 Weight: 160 lb Intake Visit Reasons: Multiple GallStones/Inflammation Health Insurance Assessor Required: No Is patient in pain?: No Allergies codeine Adverse Reaction (Verified 12/07/17 16:13) Hives pain medications Adverse Reaction (Intermediate, Uncoded 05/26/18 10:13) nausea/vomiting Medications Atenolol [Tenormin (beta marilyn)] 100 mg PO DAILY 12/05/17 [History Confirmed 05/26/18] Glimepiride [Amaryl] 4 mg PO DAILY 12/05/17 [History Confirmed 05/26/18] Hydrochlorothiazide [Hctz] 25 mg PO DAILY 12/05/17 [History Confirmed 05/26/18] Lisinopril [Zestril] 40 mg PO DAILY 12/05/17 [History Confirmed 05/26/18] amlodipine 5 mg tablet 5 mg PO DAILY 05/26/18 [History Confirmed 05/26/18] cholecalciferol (vitamin D3) 1,000 unit capsule 1,000 unit PO DAILY 05/26/18 [History Confirmed 05/26/18] cinnamon bark 500 mg capsule mg PO DAILY cap 05/26/18 [History Confirmed 05/26/18] glucosamine HCl 750 mg tablet 1,500 mg PO DAILY tab 05/26/18 [History Confirmed 05/26/18] insulin detemir (U-100) 100 unit/mL (3 mL) subcutaneous pen 40 unit SC QPM ml 05/26/18 [History Confirmed 05/26/18] insulin lispro (U-100) 100 unit/mL subcutaneous pen 15 unit SC QPM 05/26/18 [History Confirmed 05/26/18] insulin lispro (U-100) 100 unit/mL subcutaneous pen 20 unit SC QAM 05/26/18 [History Confirmed 05/26/18] magnesium 64 mg (magnesium chloride) tablet,delayed release 64 mg PO DAILY tab 05/26/18 [History Confirmed 05/26/18] multivitamin tablet 1 tab PO DAILY 05/26/18 [History Confirmed 05/26/18] selenium 100 mcg tablet 100 mcg PO DAILY 05/26/18 [History Confirmed 05/26/18] sour bolivar extract 1,000 mg capsule mg PO DAILY cap 05/26/18 [History Confirmed 05/26/18] vitamin B complex capsule 1 cap PO DAILY 05/26/18 [History Confirmed 05/26/18] [facility] Medical History Abdominal pain (Acute) Anxiety (Acute) Cholelithiasis (Acute) Constipation (Acute) Diabetes (Acute) Gout (Acute) Nausea AND vomiting (Acute) Rheumatoid arthritis (Acute) Hypertension (Chronic) Surgical History History of hysterectomy (Acute) Family History Father Heart disease Social History Smoking Status: Never smoker alcohol intake: never substance use type: does not use HPI HPI HPI: JUN JOHNSON, is a 78 F who presents to the office today for gallstones, cholecystitis, pancreatitis. Patient states she has had bandlike epigastric pain for several weeks states it is 8/10 and constant. States for the last week and half she is only been able to drink some protein drinks and liquids unable to eat food as it does make it worse with the food but not the protein drink. She states she has had chills but has not taken her temperature. Patient is a diabetic and her glucose this morning was 100 and yesterday was 101. Patient states she also has nausea and vomiting. Patient had an ultrasound which showed normal distended gallbladder the gallbladder wall was 3 mm there is a positive sonographic Preciado sign and pericholecystic fluid in her common bile duct was 4.6 mm. Patient also did have lab work which showed a normal white blood cell count on 05/23/18; however her lipase was elevated at 785 on 05/23/18. ROS General General: Yes fatigue; no weight change, appetite, colon cancer, breast cancer or weakness HEENT HEENT: No difficulty swallowing, eye injury, eye surgery, swollen glands or hoarseness Endo Endocrine: Yes diabetes mellitus; no thyroid disease, thyroid cancer, Hair loss, heat intolerance or cold intolerance Skin Skin: No rash or changing moles Breast Breast: No left breast lump, right breast lump, nipple discharge, breast pain, abnormal mammogram, abnormal US or breast enlargement Musc Musculoskeletal: Yes arthritis, rheumatoid arthritis and gout; no back problems or joint pain Cardio Cardiovascular: No murmur, pacemaker, heart disease, atrial fibrillation, high blood pressure, heart attack, heart stent, palpitations, shortness of breat with exertion or chest pain Psych Psychiatric: Yes anxiety; no depression or hearing voices Resp Respiratory: No shortness of breath, No sleep apnea, Yes cough, No COPD, No asthma, No emphysema, No wheezing Gastro Gastrointestinal: Yes abdominal pain, Yes nausea or vomiting, No diarrhea, Yes constipation, No blood in stool, No acid reflux, No hemorrhoids, No ulcers, Yes gallbladder problem, No black,tarry stools [place] Hematologic: No blood thinners, No blood disorders, No bleeding, No anemia, No blood clots Neuro Neurologic: No system reviewed and no additional complaints, except as docu, No as per HPI, No abnormal walking, No abnormal hearing, No abnormal movements, No abnormal speech, No behavioral changes, No burning sensations, No confusion, No seizure-like activity, No unsteadiness, No dizziness, No localized weakness, No frequent falls, No headache(s), No lack of coordination, No loss of vision, No memory loss, No numbness, No other visual disturbances, No radiating pain, No restless legs, No sensory deficit, No fainting, No tingling, No tremor(s), No weakness, No other Exam Const General: cooperative, comfortable, frail appearing Orientation: oriented x3 Chest Breast Palpation: No nipple discharge Resp Effort AND Inspection: normal respiratory effort Cardio Rate: regular rate Rhythm: regular rhythm Heart Sounds: no murmurs GI Inspection: non-distended Palpation: soft, no guarding, tender (epigastric >LUQ/RUQ) Assessment AND Plan Problems 1. Cholelithiasis K80.20 2. Cholecystitis, acute with cholelithiasis K80.00 3. Acute pancreatitis K85.90 Plan Reviewed patient's ultrasound findings a and the anatomy of the gallbladder with her along with her lab work. Due to patient's inflammation seen on ultrasound as well as her elevated lipase would recommend direct admitting the patient and rechecking stat labs. Discussed with patient that if her lipase is normal will continue the IV fluids and possible antibiotics for the cholecystitis and will plan to do laparoscopic cholecystectomy tomorrow however for lipase is elevated will continue to watch until that resolves and then we will plan to do a laparoscopic cholecystectomy. Reviewed the anatomy with the patient and discussed the procedure: laparoscopic cholecystectomy with possible cholangiograms, possible open. Review risks including but not limited to bleeding, infection, hernia, bile leak, retained gallstones requiring another procedure ERCP- Endoscopic Retrograde Cholangiopancreatography, injury to another organ (bile ducts, common bile duct, small bowel, etc.) and conversion to an open procedure. All questions were answered. Also asked the hospitalist to help manage her diabetes. Massiel Puente M.D. Pager: [phone] [facility] [address] [place] [address], [address] [place] [address] Office: [phone] Orders Orders: Plan Detail Follow Up will direct admit Coding Level of Care Code Off vis,new,level 4 Diagnoses Cholelithiasis K80.20 Cholecystitis, acute with cholelithiasis K80.00 Acute pancreatitis K85.90 Time Spent (min) 45 05/26/18 1036 <Electronically signed by Massiel Puente MD> Date Massiel Puente MD Cosigner Signature: Date (if applicable) CC: Taylor Alvarenga MD ABDOMEN LIMITED Observed: 05/24/2018 Status: F Source: HAYTI 8:15 AM [facility] REPOSITORY [facility] Services [address] [place] [id number] Abdomen Limited MR#: [id number] Acct: [id number] Name: JUN JOHNSON Rep #: [id number] : 1940 F 78 From: Rolando Beauchamp MD PCP: Taylor Alvarenga MD Status: REG CLI Study: Abdomen Limited Date of Exam: 05/24/18 Exam# [id number] Ordering Dr: Taylor Alvarenga MD STUDY: ABDOMINAL ULTRASOUND - RIGHT UPPER QUADRANT REASON FOR VISIT: Female, 78 years old. 3 week history of abdominal pain. TECHNIQUE: Ultrasound evaluation of the right upper quadrant was performed with real-time and static klein-scale imaging. TECHNICAL QUALITY: Adequate. COMPARISON: None. FINDINGS: Liver: The liver measures 18.1 cm. There is normal echogenicity of the liver. The bile ducts are within normal limits. There is hepatic color flow. The direction of portal flow is hepatopetal. There is no demonstrated mass lesion. Gallbladder: Normal distended gallbladder. The gallbladder wall measures 3.0 mm. There is a positive sonographic Preciado's sign. There is pericholecystic fluid. There are multiple echogenic structures within the gallbladder, consistent with multiple gallstones. Common Bile Duct (C.B.D.): The common bile duct measures 4.6 mm. Pancreas: Normal size of the head, body and tail of the pancreas. There is normal echogenicity of the pancreas. There is no demonstrated pancreatic mass or cyst. Right Kidney: Normal size of the right kidney. The right kidney measures 10.0 cm x 4.1 cm x 4.2 cm. Normal renal cortex. The right cortex measures 1.2 cm. There is no demonstrated renal mass or cyst. There is no right hydronephrosis. I suspect a 5 mm and 3 mm nonobstructive calculi in the right kidney. US/Abdomen Limited IMPRESSION: Multiple gallstones with gallbladder wall thickening and mild pericholecystic fluid. Electronically Signed: Rolando Beauchamp MD at 15:31 EDT Tel [phone], Service support , CC: Taylor Alvarenga MD Claims Administrator: Signed CBC W/DIFF, AUTOMATED Collected: 05/23/2018 Status: F Source: RYAN 4:39 PM [facility] REPOSITORY TYPE CODE TESTS RESULT OUT OF RANGE REFERENCE UNITS LAB L100.1000 4.4-11.0 K/mm3 Normal WBC 10.7 LAB L100.1200 4.2-5.4 M/mm3 Low RBC 3.40 LAB L100.1300 12.0-15.0 g/dl Low HGB 11.2 LAB L100.1400 37-47 % Low HCT 33.5 LAB L100.1500 81-99 fL Normal MCV 98.5 LAB L100.1600 27.0-32.0 pg High MCH 32.9 LAB L100.1700 32-36 g/gl Normal MCHC 33.4 LAB L100.1810 11.6-14.6 % Normal RDW CV 13.4 LAB L100.1820 35.1-43.9 fl High RDW SD 48.0 LAB L100.1900 150-450 K/mm3 Normal PLT 280 LAB L100.2000 6.2-12.0 fl Normal MPV 10.7 LAB L100.2100 47-70 % Normal NEUT% 69.6 LAB L100.2200 19-41 % Low LY% 18.4 LAB L100.2300 0-10 % High MONO% 10.7 LAB L100.2400 0-5 % Normal EO% 0.8 LAB L100.2500 0-1 % Normal BASO% 0.3 LAB L100.2550 0.0-0.9 % Normal IM GRAN % 0.200 Result Comment: IG% - Immature Granulocytes (promyelocytes, myelocytes and metamyelocytes) > 1% indicates that a LEFT SHIFT is Present. LAB L100.2620 2.0-7.7 X10 3/uL Normal Absolute Neut 7.4 LAB L100.2720 0.83-4.51 X10 3/ul Normal Absolute Lymph 1.97 Performed By: #### L100.0100 #### [facility] [address] [place], [address] AMYLASE Collected: 05/23/2018 Status: F Source: RYAN 4:39 PM [facility] REPOSITORY Order Comment: DR CALDERON ADDED A K TYPE CODE TESTS RESULT OUT OF RANGE REFERENCE UNITS LAB L501.2400 25-115 U/L Normal TAYLOR 78 Performed By: #### L501.2400, L501.2450, L501.5600 #### [facility] [address] [place], [address] LIPASE Collected: 05/23/2018 Status: F Source: RYAN 4:39 PM [facility] REPOSITORY Order Comment: DR CALDERON ADDED A K TYPE CODE TESTS RESULT OUT OF REFERENCE UNITS RANGE LAB L501.2450 73-393 U/L High LIPASE 785 Performed By: #### L501.2400, L501.2450, L501.5600 #### [facility] [address] [place], [address] POTASSIUM Collected: 05/23/2018 Status: F Source: RYAN 4:39 PM [facility] REPOSITORY Order Comment: DR CALDERON ADDED A K TYPE CODE TESTS RESULT OUT OF RANGE REFERENCE UNITS LAB L501.5600 3.5-5.1 mmol/L High K 5.2 Performed By: #### L501.2400, L501.2450, L501.5600 #### [facility] [address] [facility] [place], [address] CBC-COMPLETE BLOOD CNT Collected: 05/20/2018 Status: F Source: RYAN NO DIFF 12:41 PM [facility] REPOSITORY TYPE CODE TESTS RESULT OUT OF RANGE REFERENCE UNITS LAB L100.1000 4.4-11.0 K/mm3 Normal WBC 10.5 LAB L100.1200 4.2-5.4 M/mm3 Low RBC 3.27 LAB L100.1300 12.0-15.0 g/dl Low HGB 10.7 LAB L100.1400 37-47 % Low HCT 32.7 LAB L100.1500 81-99 fL High MCV 100.0 LAB L100.1600 27.0-32.0 pg High MCH 32.7 LAB L100.1700 32-36 g/gl Normal MCHC 32.7 LAB L100.1810 11.6-14.6 % Normal RDW CV 13.3 LAB L100.1820 35.1-43.9 fl High RDW SD 48.5 LAB L100.1900 150-450 K/mm3 Normal PLT 239 LAB L100.2000 6.2-12.0 fl Normal MPV 10.3 Performed By: #### L100.0500 #### [facility] [address] [facility] [place], [address] RENAL PROFILE Collected: 05/20/2018 Status: F Source: HAYTI 12:41 PM [facility] REPOSITORY TYPE CODE TESTS RESULT OUT OF RANGE REFERENCE UNITS LAB L501.0100 74-106 mg/dL High GLU 156 Result Comment: Fasting Glucose result greater than or equal to 126 mg/dL suggests DIABETES MELLITUS per A.D.A. criteria. Please note revised GLUCOSE reference range effective 2017. LAB L501.1000 7-18 mg/dL High BUN 46 LAB L501.1100 0.55-1.02 mg/dL High CREAT,SERUM 2.36 Result Comment: The validity of the calculated GFR AND GFRAA in patients over 70 years has not been determined. Clinical correlation is essential. LAB L501.1110 >60 mL/min Low EST GFR 21 Result Comment: Non- GFR Calc LAB L501.1115 >60 mL/min Low EST GFR - AA 26 Result Comment: GFR Calc LAB L501.1300 10-20 RATIO Normal BUN/CRE 19.5 LAB L501.1800 3.2-5.0 g/dL Low ALB 2.6 LAB L501.2200 8.5-10.1 mg/dL Low CA 7.8 LAB L501.2300 2.5-4.9 mg/dL Normal PHOS 4.6 LAB L501.5300 136-145 mmol/L Low NA 125 LAB L501.5600 3.5-5.1 mmol/L K Normal 4.6 LAB L501.5900 98-107 mmol/L Low CL 96 LAB L501.6100 21.0-32.0 mmol/L Low CO2 19.0 Performed By: #### L500.3600 #### [facility] [address] [place], [address] PTHIN Collected: 05/20/2018 Status: F Source: [facility]AYTI 12[facility] TYPE CODE TESTS RESULT OUT OF RANGE REFERENCE UNITS LAB L509.1000 18.4-80.1 pg/mL High PTHIN 180.7 Performed By: #### L509.1000 #### [facility] [address] [place], [place], [address] CBC-COMPLETE BLOOD CNT Collected: 03/23/2018 Status: F Source: RYAN NO DIFF 9:47 AM [facility] REPOSITORY TYPE CODE TESTS RESULT OUT OF RANGE REFERENCE UNITS LAB L100.1000 4.4-11.0 K/mm3 Normal WBC 6.3 LAB L100.1200 4.2-5.4 M/mm3 Low RBC 3.03 LAB L100.1300 12.0-15.0 g/dl Low HGB 10.2 LAB L100.1400 37-47 % Low HCT 31.2 LAB L100.1500 81-99 fL High MCV 103.0 LAB L100.1600 27.0-32.0 pg High MCH 33.7 LAB L100.1700 32-36 g/gl Normal MCHC 32.7 LAB L100.1810 11.6-14.6 % Normal RDW CV 13.3 LAB L100.1820 35.1-43.9 fl High RDW SD 48.7 LAB L100.1900 150-450 K/mm3 Normal PLT 179 LAB L100.2000 6.2-12.0 fl Normal MPV 10.8 Performed By: #### L100.0500 #### [facility] [address] [place], [place], [address] RENAL PROFILE Collected: 03/23/2018 Status: F Source: RYAN 9:47 AM [facility] REPOSITORY TYPE CODE TESTS RESULT OUT OF RANGE REFERENCE UNITS LAB L501.0100 74-106 mg/dL High GLU 210 Result Comment: Glucose result greater than or equal to 200 mg/dL suggests DIABETES MELLITUS per A.D.A. criteria. Please note revised GLUCOSE reference range effective 2017. LAB L501.1000 7-18 mg/dL High BUN 53 LAB L501.1100 0.55-1.02 mg/dL High CREAT,SERUM 2.70 Result Comment: The validity of the calculated GFR AND GFRAA in patients over 70 years has not been determined. Clinical correlation is essential. LAB L501.1110 >60 mL/min Low EST GFR 18 Result Comment: Non- GFR Calc LAB L501.1115 >60 mL/min Low EST GFR - AA 22 Result Comment: GFR Calc LAB L501.1300 10-20 RATIO Normal BUN/CRE 19.6 LAB L501.1800 3.2-5.0 g/dL Low ALB 3.1 LAB L501.2200 8.5-10.1 mg/dL CA Normal 8.5 LAB L501.2300 2.5-4.9 mg/dL High PHOS 5.0 LAB L501.5300 136-145 mmol/L NA Normal 136 LAB L501.5600 3.5-5.1 mmol/L K Normal 4.4 LAB L501.5900 98-107 mmol/L High CL 108 LAB L501.6100 21.0-32.0 mmol/L Low CO2 18.0 Performed By: #### L500.3600, L501.1400, L503.6075, L503.6150, L503.6550 #### [facility] [address] [place], [place], [address] URIC ACID Collected: 03/23/2018 Status: F Source: HAYTI 9:47 AM [facility] REPOSITORY TYPE CODE TESTS RESULT OUT OF RANGE REFERENCE UNITS LAB L501.1400 2.6-6.0 mg/dL High URIC 7.4 Result Comment: The drugs N-Acetylcysteine and Metamizole may falsely depress this assay. Performed By: #### L500.3600, L501.1400, L503.6075, L503.6150, L503.6550 #### [facility] [address] [place], [place], [address] IRON BINDING Collected: 03/23/2018 Status: F Source: [facility],TOTAL 9:47 AM [facility] REPOSITORY TYPE CODE TESTS RESULT OUT OF RANGE REFERENCE UNITS LAB L503.6075 250-450 ug/dL Normal TIBC 335 Performed By: #### L500.3600, L501.1400, L503.6075, L503.6150, L503.6550 #### [facility] [address] [place], [address] IRON Collected: 03/23/2018 Status: F Source: HAYTI 9:47 AM [facility] REPOSITORY TYPE CODE TESTS RESULT OUT OF RANGE REFERENCE UNITS LAB L503.6150 50-170 ug/dL Normal IRON 110 Performed By: #### L500.3600, L501.1400, L503.6075, L503.6150, L503.6550 #### [facility] [address] [place], [address] FERRITIN Collected: 03/23/2018 Status: F Source: HAYTI 9:47 AM [facility] REPOSITORY TYPE CODE TESTS RESULT OUT OF RANGE REFERENCE UNITS LAB L503.6550 8-252 ng/mL Normal FERRITIN 181 Performed By: #### L500.3600, L501.1400, L503.6075, L503.6150, L503.6550 #### [facility] [address] [place] [address] [place], [address] PTHIN Collected: 03/23/2018 Status: F Source: HAYTI 9:47 AM [facility] REPOSITORY TYPE CODE TESTS RESULT OUT OF RANGE REFERENCE UNITS LAB L509.1000 18.4-80.1 pg/mL High PTHIN 85.5 Performed By: #### L509.1000 #### [facility] [place], [address] VITAMIN D,25 HYDROXY Collected: 03/23/2018 Status: F Source: HAYTI 9:47 AM [facility] REPOSITORY TYPE CODE TESTS RESULT OUT OF REFERENCE UNITS RANGE LAB L506.1000 29.95-100.01 ng/mL Low Vitamin D 19.5 25-OH Result Comment: Vitamin D 25(OH) Status Range Deficiency <20 ng/mL (50nmol/L) Insuffciency 20 - 30 ng/mL (50 - 75 nmol/L) Sufficiency 30 - 100 ng/mL (75 - 250 nmol/L) Toxicity >100 ng/mL (>250 nmol/L) Performed By: #### L506.1000 #### [facility] [place], [address] PROTEIN+CREATININE Collected: Status: F Source: RYAN RATIO,URINE 03/23/2018 9:47 AM [facility] REPOSITORY TYPE CODE TESTS RESULT OUT OF RANGE REFERENCE UNITS LAB L501.1200 NO RANGE EST. mg/dL Normal UR CREAT 98.60 LAB L501.1930 <11.9 mg/dL High 276.9 PROTEIN,UR.R AN. LAB L501.1940 0-200 mg/g CRE High PROT:CRE 2808 RATIO Performed By: #### L501.0900 #### [facility] [address] [place], [address] BASIC METABOLIC Collected: 12/20/2017 Status: F Source: RYAN PROFILE (BMP) 8:57 AM [facility] REPOSITORY Order Comment: CC RESULTS TO ALMITA STEWART TYPE CODE TESTS RESULT OUT OF RANGE REFERENCE UNITS LAB L501.0100 74-106 mg/dL High GLU 271 Result Comment: Glucose result greater than or equal to 200 mg/dL suggests DIABETES MELLITUS per A.D.A. criteria. Please note revised GLUCOSE reference range effective 2017. LAB L501.1000 7-18 mg/dL High BUN 23 LAB L501.1100 0.55-1.02 mg/dL High CREAT,SERUM 2.21 Result Comment: The validity of the calculated GFR AND GFRAA in patients over 70 years has not been determined. Clinical correlation is essential. LAB L501.1110 >60 mL/min Low EST GFR 23 Result Comment: Non- GFR Calc LAB L501.1115 >60 mL/min Low EST GFR - AA 28 Result Comment: GFR Calc LAB L501.1300 10-20 RATIO Normal BUN/CRE 10.4 LAB L501.2200 8.5-10.1 mg/dL Low CA 8.4 LAB L501.5300 136-145 mmol/L NA Normal 137 LAB L501.5600 3.5-5.1 mmol/L K Normal 4.4 LAB L501.5900 98-107 mmol/L CL Normal 103 LAB L501.6100 21.0-32.0 mmol/L Normal CO2 25.0 LAB L501.6200 5-15 Normal GAP 9 Performed By: #### L500.2500 #### [facility] [address] [place], [address] EMERGENCY DEPARTMENT Observed: 12/08/2017 Status: F Source: HAYTI SUMMARY 12:54 AM [facility] REPOSITORY [facility] Medical Records Department [address] [place] [address] Emergency Department Summary 12/07/17 1730 MR#: [id number] Acct: [id number] Name: JUN JOHNSON Rep #: [id number] : 1940 77 From: Paco Reardon MD PCP: Taylor Alvarenga MD Status: DEP ER - ER Visit Summary Date of Service: 12/07/17 Chief Complaint: Elevated blood sugar with a history of insulin- dependent diabetes. History of Present Illness: The patient is a 77 F history of diabetes was just started on insulin 2 days ago. She was in the ER recently for elevated blood sugars also. She denies any nausea, vomiting or diarrhea. She denies any fever or dysuria. She has been feeling well other than her blood sugars have been elevated recently. Physical Examination: Elderly female no acute distress. Vital signs are stable afebrile. Pulse ox 98% on room air. Hypoxia. HEENT exam unremarkable atraumatic. Neck nontender. Lungs clear to auscultation bilaterally. Heart regular rate and rhythm no murmur. Abdomen is soft nontender. Normal bowel sounds no peritoneal signs. Moving all 4 extremities. Neurologically she has no motor deficits. No sensory deficits. Awake alert and talking normally. She has no focal motor or sensory deficits. Test Results: CBC shows a white count of 15,100. She has no complaints of any infectious etiology. H AND H 12 and 35. Electrolytes sodium 131. Initial glucose was 314. Anion gap 11. She has known renal insufficiency her creatinine is 2 4 and has had creatinines as high as 2.6 before. Serum ketones are negative. Repeat BG T at 8 PM was 201. Emergency Department Course and Treatment: A female insulin- dependent diabetic with high blood sugar. Screening labs be obtained along with being given a liter of normal saline. Treatment Plan: Repeat exam patient is doing well at 2145. She has no complaints. She feels comfortable being discharged home. She will follow-up with her primary care physician Dr. Alvarenga and she needs diabetic teaching. Disposition: Discharge Impression: Acute hyperglycemia History of insulin-dependent diabetes Chronic renal insufficiency. This note was generated with [employer] dictation software. It may contain incorrect words, spelling, and punctuation that were not noted in review of the chart prior to signing ED Disposition - Plan for ED Patient: Chief Complaint: Hyperglycemia Referrals: Taylor Alvarenga MD [Primary Care Provider] - What to do if you have Problems For any increased pain, shortness of breath, bleeding, nausea or vomiting, chest pain, or any unexpected problems, contact your Primary Care Provider. Call [facility] ([phone]) or report to the closest Emergency Room. Call 911 if necessary. 12/08/17 0054 <Electronically signed by Paco Reardon MD> Date Paco Reardon MD Cosigner Signature (If Indicated): Date CC: Taylor Alvarenga MD DISCHARGE INSTRUCTION Observed: 12/08/2017 Status: F Source: RYAN 12:54 AM [facility] REPOSITORY [facility] Medical Records Department [address] [place] [address] Discharge Instruction 12/07/17 2147 MR#: [id number] Acct: [id number] Name: JUN JOHNSON Rep #: [id number] : 1940 77 From: Paco Reardon MD PCP: Taylor Alvarenga MD Status: [facility] ER ED Disposition - Plan for ED Patient: Disposition: Home or Assisted Living Chief Complaint: Hyperglycemia Instructions: ED Hyperglycemia Diabetic Referrals: Taylor Alvarenga MD [Primary Care Provider] - As soon as possible Additional Instructions: Watch blood sugars closely. Recheck a blood sugar prior to bedtime tonight. I would take an log your blood sugars before every meal and at bedtime. I would show those readings to Dr. Alvarenga the next time you are at the office. You should follow- up in the next several days. You need discussed with Dr. Alvarenga about being referred for diabetic teaching. Return to ER if you are feeling worse. What to do if you have Problems For any increased pain, shortness of breath, bleeding, nausea or vomiting, chest pain, or any unexpected problems, contact your Primary Care Provider. Call [facility] ([phone]) or report to the closest Emergency Room. Call 911 if necessary. 12/08/17 0054 <Electronically signed by Paco Reardon MD> Date Paco Reardno MD Cosigner Signature (If Indicated): Date CC: Taylor Alvarenga MD BEDSIDE GLUCOSE Collected: 12/07/2017 Status: F Source: HAYTI 8:02 PM [facility] REPOSITORY TYPE CODE TESTS RESULT OUT OF REFERENCE UNITS RANGE LAB L501.080 70-110 mg/dL High BEDSIDE GLU 201 Result Comment: MANAGEMENT OF PATIENT CARE PER NURSING PROTOCOL Performed By: #### L501.080 #### [facility] Point of Care [facility] [place] [address] CBC W/DIFF, AUTOMATED Collected: 12/07/2017 Status: F Source: HAYTI 5:30 PM [facility] REPOSITORY TYPE CODE TESTS RESULT OUT OF RANGE REFERENCE UNITS LAB L100.1000 4.4-11.0 K/mm3 High WBC 15.1 LAB L100.1200 4.2-5.4 M/mm3 Low RBC 3.78 LAB L100.1300 12.0-15.0 g/dl Normal HGB 12.1 LAB L100.1400 37-47 % Low HCT 35.7 LAB L100.1500 81-99 fL Normal MCV 94.4 LAB L100.1600 27.0-32.0 pg Normal MCH 32.0 LAB L100.1700 32-36 g/gl Normal MCHC 33.9 LAB L100.1810 11.6-14.6 % Normal RDW CV 12.6 LAB L100.1820 35.1-43.9 fl Normal RDW SD 43.1 LAB L100.1900 150-450 K/mm3 Normal PLT 218 LAB L100.2000 6.2-12.0 fl Normal MPV 10.1 LAB L100.2100 47-70 % High NEUT% 75.7 LAB L100.2200 19-41 % Normal LY% 19.1 LAB L100.2300 0-10 % Normal MONO% 4.6 LAB L100.2400 0-5 % Normal EO% 0.3 LAB L100.2500 0-1 % Normal BASO% 0.1 LAB L100.2550 0.0-0.9 % Normal IM GRAN % 0.200 Result Comment: IG% - Immature Granulocytes (promyelocytes, myelocytes and metamyelocytes) > 1% indicates that a LEFT SHIFT is Present. LAB L100.2620 2.0-7.7 X10 3/uL High Absolute Neut 11.5 LAB L100.2720 0.83-4.51 X10 3/ul Normal Absolute Lymph 2.89 Performed By: #### L100.0100 #### [facility] [address] [place], [place], [address] ACETONE SERUM Collected: 12/07/2017 Status: F Source: HAYTI 5:30 PM [facility] REPOSITORY TYPE CODE TESTS RESULT OUT OF RANGE REFERENCE UNITS LAB L501.6900 NEG Normal ACETONE SERUM NEGATIVE Performed By: #### L501.6900 #### [facility] [address] [place], [address] BASIC METABOLIC Collected: 12/07/2017 Status: F Source: HAYTI PROFILE (BMP) 5:30 PM [facility] REPOSITORY TYPE CODE TESTS RESULT OUT OF RANGE REFERENCE UNITS LAB L501.0100 74-106 mg/dL High GLU 314 Result Comment: Glucose result greater than or equal to 200 mg/dL suggests DIABETES MELLITUS per A.D.A. criteria. Please note revised GLUCOSE reference range effective 2017. LAB L501.1000 7-18 mg/dL High BUN 35 LAB L501.1100 0.55-1.02 mg/dL High CREAT,SERUM 2.84 Result Comment: The validity of the calculated GFR AND GFRAA in patients over 70 years has not been determined. Clinical correlation is essential. LAB L501.1110 >60 mL/min Low EST GFR 17 Result Comment: Non- GFR Calc LAB L501.1115 >60 mL/min Low EST GFR - AA 21 Result Comment: GFR Calc LAB L501.1255 ml/min Normal Estimated CRCL 13.54 LAB L501.1300 10-20 RATIO Normal BUN/CRE 12.3 LAB L501.2200 8.5-10 mg/dL Normal .1 CA 9.0 LAB L501.5300 136-14 mmol/L Low 5 NA 131 LAB L501.5600 3.5-5. mmol/L Normal 1 K 3.8 LAB L501.5900 98-107 mmol/L Low CL 96 LAB L501.6100 21.0-3 mmol/L Normal 2.0 CO2 24.0 LAB L501.6200 5-15 Normal GAP 11 Performed By: #### L500.2500 #### [facility] [address] [facility] [place], [address] BEDSIDE GLUCOSE Collected: 12/07/2017 Status: F Source: HAYTI 5:06 PM [facility] REPOSITORY TYPE CODE TESTS RESULT OUT OF REFERENCE UNITS RANGE LAB L501.080 70-110 mg/dL High BEDSIDE GLU 322 Result Comment: MANAGEMENT OF PATIENT CARE PER NURSING PROTOCOL Performed By: #### L501.080 #### [facility] Point of Care [address] [place] [address] EMERGENCY DEPARTMENT Observed: 12/06/2017 Status: F Source: HAYTI SUMMARY 1:45 AM [facility] REPOSITORY [facility] Medical Records Department [address] [facility] [place] [address] Emergency Department Summary 12/05/17 2244 MR#: [id number] Acct: [id number] Name: JUN JOHNSON Rep #: [id number] : 1940 77 From: Denton Holley MD PCP: Taylor Alvarenga MD Status: REG ER - ER Visit Summary Date of Service: 12/05/17 Chief Complaint: Blood sugar History of Present Illness: The patient is a 77 F who has a history of type 2 diabetes and chronic kidney disease, and due to worsening renal function, recently had her metformin switched to a new oral medication, and since then her blood sugars have been in the 500s, today they read high several times, and she felt like her blood pressure was high so she took it and her systolics were in the 180s, and 160s later. Here they are in the 200s. She states she knew her blood pressure was up because she felt like her heart was beating hard, although she was having no palpitations or racing or feelings of a dysrhythmia. She has had these symptoms in the past. Otherwise, her only other symptoms are some nausea off and on, polydipsia and polyuria, dry mouth, and she states she has a very mild sore throat because of her dry mouth. Physical Examination: Well-appearing in no acute distress. Blood pressure is in the 210 range, her other vital signs are normal. Lungs are clear to auscultation, heart is regular with no murmur. Abdomen soft nontender nondistended. No CVA tenderness. No JVD. No pedal edema or calf tenderness. Neck is supple. Alert and oriented 3 with normal central and peripheral neurologic exams. Test Results: Stat blood sugar check is 598. Creatinine is 2.66, similar to a reading 2 days ago, with BUN in the 30s. Other than pseudohyponatremia due to her hyperglycemia, and glycosuria, her other labs and urinalysis are unremarkable. Chest x-ray shows COPD-like changes but otherwise nothing acute. Emergency Department Course and Treatment: Over several hours, patient was given 1 L of IV fluid and 1 dose of 14 units of fast acting subcutaneous insulin. Glucose was monitored as it gradually came down, at this time it is 265 and her blood pressure is 156 systolic. She feels better. 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 She is comfortable with this plan. Treatment Plan: Continue medications as prescribed, calling her doctor tomorrow for further management of her medications Disposition: Discharge home Impression: Hyperglycemia due to type 2 diabetes and recent medication changes Chronic kidney disease Accelerated hypertension This note was generated with [employer] software. It may contain incorrect words, spelling, and punctuation that were not noted in review of the chart prior to signing ED Disposition - Plan for ED Patient: Disposition: Home or Assisted Living Chief Complaint: Hyperglycemia Instructions: ED Hyperglycemia Diabetic Referrals: Taylor Alvarenga MD [Primary Care Provider] - (call Dr. Alvarenga and/or your Lead Nuclear Medicine Technologist regarding medication management recommendations) What to do if you have Problems For any increased pain, shortness of breath, bleeding, nausea or vomiting, chest pain, or any unexpected problems, contact your Primary Care Provider. Call [facility] ([phone]) or report to the closest Emergency Room. Call 911 if necessary. 12/06/17 0145 <Electronically signed by Denton Holley MD> Date Denton Holley MD Cosigner Signature (If Indicated): Date CC: Taylor Alvarenga MD BEDSIDE GLUCOSE Collected: 12/06/2017 Status: F Source: RYAN 1:28 AM [facility] REPOSITORY TYPE CODE TESTS RESULT OUT OF REFERENCE UNITS RANGE LAB L501.080 70-110 mg/dL High BEDSIDE GLU 265 Result Comment: MANAGEMENT OF PATIENT CARE PER NURSING PROTOCOL Performed By: #### L501.080 #### [facility] Point of Care [address] [place] [address] BEDSIDE GLUCOSE Collected: 12/06/2017 Status: F Source: RYAN 12:23 AM [facility] REPOSITORY TYPE CODE TESTS RESULT OUT OF REFERENCE UNITS RANGE LAB L501.080 70-110 mg/dL High BEDSIDE GLU 351 Result Comment: MANAGEMENT OF PATIENT CARE PER NURSING PROTOCOL Performed By: #### L501.080 #### [facility] Point of Care [address] [place] [address] CHEST PA AND LATERAL Observed: 12/05/2017 Status: F Source: RYAN 10:45 PM [facility] REPOSITORY [facility] Imaging Services [address] [place] [address] Chest PA and Lateral MR#: [id number] Acct: [id number] Name: JUN JOHNSON Rep #: [id number] : 1940 F 77 From: Иван Jarquin MD PCP: Taylor Alvarenga MD Status: REG ER Study: Chest PA and Lateral Date of Exam: 12/05/17 Exam# [id number] Ordering Dr: Denton Holley MD STUDY: X-RAY CHEST REASON FOR EXAM: Female, 77 years old. Hypertension TECHNIQUE: Frontal and lateral views of the chest. COMPARISON: 11/03/2013 FINDINGS: COPD without acute alveolar disease. There is no demonstrated pleural abnormality. Normal size heart. Normal mediastinum and will. Normal visualized pulmonary arteries. Normal visualized aortic arch and descending thoracic aorta. There are diffuse degenerative changes of the visualized thoracic spine. There is degenerative osteoarthritis of the bilateral shoulders. There is no demonstrated abnormality of the visualized soft tissue structures of the upper abdomen. RAD/Chest PA and Lateral IMPRESSION: COPD without acute alveolar disease. Electronically Signed: Иван Jarquin MD at 23:13 EST Tel , Service support , CC: Taylor Alvarenga MD; DENTON HOLELY MD Claims Administrator: Signed CBC W/DIFF, AUTOMATED Collected: 12/05/2017 Status: F Source: RYAN 10:40 PM [facility] REPOSITORY TYPE CODE TESTS RESULT OUT OF RANGE REFERENCE UNITS LAB L100.1000 4.4-11.0 K/mm3 Normal WBC 7.7 LAB L100.1200 4.2-5.4 M/mm3 Low RBC 3.60 LAB L100.1300 12.0-15.0 g/dl Low HGB 11.9 LAB L100.1400 37-47 % Low HCT 33.9 LAB L100.1500 81-99 fL Normal MCV 94.2 LAB L100.1600 27.0-32.0 pg High MCH 33.1 LAB L100.1700 32-36 g/gl Normal MCHC 35.1 LAB L100.1810 11.6-14.6 % Normal RDW CV 12.2 LAB L100.1820 35.1-43.9 fl Normal RDW SD 40.9 LAB L100.1900 150-450 K/mm3 Normal PLT 201 LAB L100.2000 6.2-12.0 fl Normal MPV 10.2 LAB L100.2100 47-70 % Normal NEUT% 60.1 LAB L100.2200 19-41 % Normal LY% 30.5 LAB L100.2300 0-10 % Normal MONO% 7.3 LAB L100.2400 0-5 % Normal EO% 1.4 LAB L100.2500 0-1 % Normal BASO% 0.3 LAB L100.2550 0.0-0.9 % Normal IM GRAN % 0.400 Result Comment: IG% - Immature Granulocytes (promyelocytes, myelocytes and metamyelocytes) > 1% indicates that a LEFT SHIFT is Present. LAB L100.2620 2.0-7.7 X10 3/uL Normal Absolute Neut 4.6 LAB L100.2720 0.83-4.51 X10 3/ul Normal Absolute Lymph 2.34 Performed By: #### L100.0100 #### [facility] [address] [place], [place], [address] BASIC METABOLIC Collected: 12/05/2017 Status: F Source: HAYTI PROFILE ([facility]) 10:40 PM [facility] REPOSITORY Order Comment: 'TROP' Serial specimen #1, #2, #3, or #4: 1 TYPE CODE TESTS RESULT OUT OF RANGE REFERENCE UNITS LAB L501.0100 74-106 mg/dL High alert GLU 559 Result Comment: Critical Result(s) Called at: 23:14:51 12/05/2017 by: REFUGIO MCCORD RN ED Glucose result greater than or equal to 200 mg/dL suggests DIABETES MELLITUS per A.D.A. criteria. Please note revised GLUCOSE reference range effective 2017. LAB L501.1000 7-18 mg/dL High BUN 35 LAB L501.1100 0.55-1.02 mg/dL High CREAT,SERUM 2.66 Result Comment: The validity of the calculated GFR AND GFRAA in patients over 70 years has not been determined. Clinical correlation is essential. LAB L501.1110 >60 mL/min Low EST GFR 19 Result Comment: Non- GFR Calc LAB L501.1115 >60 mL/min Low EST GFR - AA 22 Result Comment: GFR Calc LAB L501.1255 ml/min Normal Estimated CRCL 14.45 LAB L501.1300 10-20 RATIO Normal BUN/CRE 13.2 LAB L501.2200 8.5-10 mg/dL Normal .1 CA 8.9 LAB L501.5300 136-14 mmol/L Low 5 NA 129 LAB L501.5600 3.5-5. mmol/L Normal 1 K 4.0 LAB L501.5900 98-107 mmol/L Low CL 90 LAB L501.6100 21.0-3 mmol/L Normal 2.0 CO2 24.0 LAB L501.6200 5-15 Normal GAP 15 Performed By: #### L500.2500, L501.4010 #### [facility] [address] [facility] [place], [place], [id number] TROPONIN-I Collected: 12/05/2017 Status: F Source: HAYTI 10:40 PM [facility] REPOSITORY Order Comment: 'TROP' Serial specimen #1, #2, #3, or #4: 1 TYPE CODE TESTS RESULT OUT OF RANGE REFERENCE UNITS LAB L501.4010 <0.06 ng/mL Normal < 0.02 TROPONIN-I Result Comment: TROPONIN-I EXPECTED VALUES <0.05 NEGATIVE 0.06 - 0.59 AT RISK OF NC > OR = 0.60 SUGGEST NC Performed By: #### L500.2500, L501.4010 #### [facility] [address] [facility] [place], [place], [id number] BEDSIDE GLUCOSE Collected: 12/05/2017 Status: F Source: HAYTI 10:31 PM [facility] REPOSITORY TYPE CODE TESTS RESULT OUT OF REFERENCE UNITS RANGE LAB L501.080 70-110 mg/dL High alert BEDSIDE GLU > 500 Result Comment: Dr Orders Followed MANAGEMENT OF PATIENT CARE PER NURSING PROTOCOL Performed By: #### L501.080 #### [facility] Point of Care [address] [place] [address] URINALYSIS, COMPLETE Collected: 12/05/2017 Status: F Source: RYAN 10:20 PM [facility] REPOSITORY Order Comment: How was Urine Obtained? CLEAN CATCH TYPE CODE TESTS RESULT OUT OF RANGE REFERENCE UNITS LAB L400.3000 Yellow COLOR Normal Yellow LAB L400.3050 Clear Normal CLARITY Clear LAB L400.3200 Normal mg/dl High GLUCOSE, UR 1000 LAB L400.3300 Negative mg/dL Normal BILIRUBIN URINE Negative LAB L400.3400 Negative mg/dl Normal KETONE UR Negative LAB L400.3465 1.002-1.030 Normal SP.GR. DIPSTX 1.010 LAB L400.3550 5.0 - 8.0 pH UR Normal 6.5 LAB L400.3600 Negative mg/dl High PROT DIPSTX 100 LAB L400.3700 Normal mg/dl Normal UROBILI Normal LAB L400.3750 Negative Normal NITRITE UR Negative LAB L400.3780 Negative /ul Normal OCCULT BLOOD-UR Negative LAB L400.3800 Negative /ul High LEUK 25 ESTERASE LAB L400.4050 0-5 /hpf WBC 0 Normal SEEN LAB L400.4100 0-5 /hpf 0 Normal RBC-UA SEEN LAB L400.4150 5-10 /hpf SQUAM 0 Normal EPI SEEN LAB L400.4300 None Seen /hpf 0 Normal BACTERIA SEEN LAB L400.4350 <or=2+ /hpf 0 Normal MUCUS, URINE SEEN Performed By: #### L400.0001 #### [facility] [address] [place], [address] BASIC METABOLIC Collected: 12/03/2017 Status: F Source: RYAN PROFILE (BMP) 9:00 AM [facility] REPOSITORY TYPE CODE TESTS RESULT OUT OF RANGE REFERENCE UNITS LAB L501.0100 74-106 mg/dL High GLU 410 Result Comment: Glucose result greater than or equal to 200 mg/dL suggests DIABETES MELLITUS per A.D.A. criteria. Please note revised GLUCOSE reference range effective 2017. LAB L501.1000 7-18 mg/dL High BUN 29 LAB L501.1100 0.55-1.02 mg/dL High CREAT,SERUM 2.69 Result Comment: The validity of the calculated GFR AND GFRAA in patients over 70 years has not been determined. Clinical correlation is essential. LAB L501.1110 >60 mL/min Low EST GFR 18 Result Comment: Non- GFR Calc LAB L501.1115 >60 mL/min Low EST GFR - AA 22 Result Comment: GFR Calc LAB L501.1300 10-20 RATIO Normal BUN/CRE 10.8 LAB L501.2200 8.5-10.1 mg/dL CA Normal 8.7 LAB L501.5300 136-145 mmol/L Low NA 131 LAB L501.5600 3.5-5.1 mmol/L K Normal 3.8 LAB L501.5900 98-107 mmol/L Low CL 93 LAB L501.6100 21.0-32.0 mmol/L Normal CO2 27.0 LAB L501.6200 5-15 Normal GAP 11 Performed By: #### L500.2500 #### [facility] [address] [place] [address]. [place], [place], [address] ANTINUCLEAR ANTIBODY, Collected: 12/03/2017 Status: F Source: HAYTI IFA 9:00 AM [facility] REPOSITORY TYPE CODE TESTS RESULT OUT OF RANGE REFERENCE UNITS LAB L3100.8000 . Normal AIDA Negative test Result Comment: Negative <1:80 Borderline 1:80 Positive >1:80 Performed at: [facility] [id number] Scudding Inspector: Eddy Feliciano PhD, Phone: [phone] Performed By: #### L3100.7950 #### [facility] (refer to report for specific site) refer to report for address and phone number CBC-COMPLETE BLOOD CNT Collected: 11/24/2017 Status: F Source: HAYTI NO DIFF 9:57 AM [facility] REPOSITORY TYPE CODE TESTS RESULT OUT OF RANGE REFERENCE UNITS LAB L100.1000 4.4-11.0 K/mm3 Normal WBC 7.5 LAB L100.1200 4.2-5.4 M/mm3 Low RBC 3.65 LAB L100.1300 12.0-15.0 g/dl Low HGB 11.6 LAB L100.1400 37-47 % Low HCT 35.1 LAB L100.1500 81-99 fL Normal MCV 96.2 LAB L100.1600 27.0-32.0 pg Normal MCH 31.8 LAB L100.1700 32-36 g/gl Normal MCHC 33.0 LAB L100.1810 11.6-14.6 % Normal RDW CV 12.8 LAB L100.1820 35.1-43.9 fl High RDW SD 44.5 LAB L100.1900 150-450 K/mm3 Normal PLT 273 LAB L100.2000 6.2-12.0 fl Normal MPV 9.7 Performed By: #### L100.0500 #### [facility] [address] [place], [address] RENAL PROFILE Collected: 11/24/2017 Status: F Source: HAYTI 9:57 AM [facility] REPOSITORY TYPE CODE TESTS RESULT OUT OF RANGE REFERENCE UNITS LAB L501.0100 74-106 mg/dL High GLU 168 Result Comment: Fasting Glucose result greater than or equal to 126 mg/dL suggests DIABETES MELLITUS per A.D.A. criteria. Please note revised GLUCOSE reference range effective 2017. LAB L501.1000 7-18 mg/dL High BUN 33 LAB L501.1100 0.55-1.02 mg/dL High CREAT,SERUM 2.32 Result Comment: The validity of the calculated GFR AND GFRAA in patients over 70 years has not been determined. Clinical correlation is essential. LAB L501.1110 >60 mL/min Low EST GFR 22 Result Comment: Non- GFR Calc LAB L501.1115 >60 mL/min Low EST GFR - AA 26 Result Comment: GFR Calc LAB L501.1300 10-20 RATIO Normal BUN/CRE 14.2 LAB L501.1800 3.2-5.0 g/dL Normal ALB 3.3 LAB L501.2200 8.5-10.1 mg/dL CA Normal 8.7 LAB L501.2300 2.5-4.9 mg/dL Normal PHOS 4.2 LAB L501.5300 136-145 mmol/L Low NA 135 LAB L501.5600 3.5-5.1 mmol/L K Normal 4.3 LAB L501.5900 98-107 mmol/L CL Normal 100 LAB L501.6100 21.0-32.0 mmol/L Normal CO2 24.0 Performed By: #### L500.3600, L501.1400 #### [facility] [address] [place], [place], [address] URIC ACID Collected: 11/24/2017 Status: F Source: HAYTI 9:57 AM [facility] REPOSITORY TYPE CODE TESTS RESULT OUT OF RANGE REFERENCE UNITS LAB L501.1400 2.6-6.0 mg/dL High URIC 8.7 Result Comment: The drugs N-Acetylcysteine and Metamizole may falsely depress this assay. Performed By: #### L500.3600, L501.1400 #### [facility] [address] [place], [place], [address] ANTINUCLEAR ANTIBODIES Collected: 11/24/2017 Status: F Source: HAYTI DIRECT 9:57 AM [facility] REPOSITORY TYPE CODE TESTS RESULT OUT OF RANGE REFERENCE UNITS LAB L3100.5475 . Test Normal not performed AIDA-DIRECT Result Comment: The specimen submitted does not meet the laboratory's criteria for acceptability. Refer to [facility]'s Directory of Services for specimen acceptability criteria. Requires Serum Received EDTA Whole blood Contacted Deepali at your facility 11/25/2017 Performed By: #### L3100.5475 #### [facility] (refer to report for specific site) refer to report for address and phone number IMMUNOFIXATION URINE Collected: 11/24/2017 Status: F Source: HAYTI 9:57 AM [facility] REPOSITORY TYPE CODE TESTS RESULT OUT OF RANGE REFERENCE UNITS LAB L3600.4030 . Normal MARVEL Urine Comment Result Comment: No monoclonality detected. Performed at: [facility] [id number] Scudding Inspector: Eddy Feliciano PhD, Phone: [phone] Performed By: #### L3600.4030 #### [facility] (refer to report for specific site) refer to report for address and phone number KIDNEY AND BLADDER Observed: 11/11/2017 Status: F Source: HAYTI 10:47 AM [facility] REPOSITORY [facility] Imaging Services [address] [place] [address] Kidney and Bladder MR#: [id number] Acct: [id number] Name: JUN JOHNSON Rep #: [id number] : 1940 F 77 From: Niesha Lake MD PCP: Taylor Alvarenga MD Status: REG CLI Study: Kidney and Bladder Date of Exam: 11/11/17 Exam# [id number] Ordering Dr: Irma Arredondo DO US Kidney(s) complete (eg, kidneys T bladder) INDICATION: CKD stage 3 COMPARISON: CT April 2012 TECHNIQUE: Ultrasonographic grayscale and limited Doppler investigation of the retroperitoneum including kidneys and urinary bladder FINDINGS: The right kidney measures 10 x 4 x 5.4 cm with a cortical thickness of 1.6 cm. There is no evidence of hydronephrosis, cyst, or shadowing calculus. The left kidney measures 10.5 x 4.6 x 5.3 cm with a cortical thickness of 1.5 cm. There is no evidence of hydronephrosis, cyst, or shadowing calculus. Urinary bladder contains 24 mL at the time of the scan and appears otherwise unremarkable. US/Kidney and Bladder IMPRESSION: Negative renal ultrasound. at 0057 Reported and signed by: Niesha Lake MD Electronically Signed: Niesha Lake MD at 23:55 EST Tel , Service support , CC: Taylor Alvarenga MD; Irma Arredondo DO Claims Administrator: Signed PROTEIN+CREATININE Collected: Status: F Source: RYAN RATIO,URINE 11/09/2017 11:03 AM [facility] REPOSITORY TYPE CODE TESTS RESULT OUT OF RANGE REFERENCE UNITS LAB L501.1200 NO RANGE EST. mg/dL Normal UR CREAT 94.10 LAB L501.1930 <11.9 mg/dL High 433.3 PROTEIN,UR.R AN. LAB L501.1940 0-200 mg/g CRE High PROT:CRE 4605 RATIO Performed By: #### L501.0900 #### [facility] [address] [place], [address] ALLERGIES ALLERGIES DATE TYPE / CODE NAME / CODE REACTION SEVERITY SOURCE 10/24/2018 Drug codeine/[id number] Hives Unknown Ryan Allergy/[id number]( 52(RXNORM) [facility]) Hospital Repository 10/24/2018 Miscellaneous pain medications nausea/vomiti [place] Allergy/[id number]( [facility] SNOMED CT) Hospital Repository ENCOUNTERS ENCOUNTERS ADMIT/DISCHARGE ACCOUNT ADMITTING ENCOUNTER LOCATION SOURCE NUMBER CLASS 10/24/2018/ [id number] Emergency [place] Ryan 9 9 [facility] ing:ED Repository 10/21/2018 [id number] Ambulatory [place] 6 [facility] ing:US Repository 10/18/2018 [id number] Ambulatory [place] 3 [facility] Hospital ing:MTLAB Repository 10/17/2018 [id number] Ambulatory [place] 4 [facility] Hospital ing:MTLAB Repository 09/09/2018 [id number] Ambulatory [place] 0 [facility] Hospital ing:LAB.FUTUR Repository E 08/19/2018 [id number] Ambulatory [place] 2 [facility] Hospital ing:LAB.FUTUR Repository E 08/15/2018 [id number] Ambulatory Ryan Ryan 5 [facility] Hospital ing:LAB.FUTUR Repository E 08/12/2018 [id number] Ambulatory [place] Ryan 6 [facility] Hospital ing:LAB.FUTUR Repository E 08/10/2018 [id number] Ambulatory [place] Ryan 5 [facility] Hospital ing:DC Repository 07/15/2018 [id number] Ambulatory [place] 8 [facility] Hospital ing:MTLAB Repository 07/11/2018 [id number] Ambulatory Ryan [place] 0 [facility] Hospital ing:LAB.FUTUR Repository E 07/08/2018 [id number] Ambulatory Ryan [place] 3 [facility] Hospital ing:MTLAB Repository 07/06/2018 [id number] Ambulatory Ryan [place] 0 [facility] Hospital ing:MFPLAB Repository 06/20/2018 [id number] Ambulatory Ryan Ryan 0 [facility] Hospital ing:LAB.FUTUR Repository E 06/15/2018 [id number] Ambulatory [place] 8 [facility] Hospital ing:LAB Repository 06/10/2018 [id number] Ambulatory Ryan [place] 3 [facility] Hospital ing:LAB.FUTUR Repository E 06/09/2018/ [id number] Ambulatory [place] Ryan 8 7 [facility] Hospital ing:DC Repository 06/08/2018 [id number] Ambulatory [place] Ryan 3 [facility] Hospital ing:LAB Repository 06/07/2018 [id number] Ambulatory Ryan Ryan 5 [facility] ing:PAVLAB Repository 06/07/2018/ [id number] Ambulatory [facility] 06/04/2018/ [id number] Emergency [place] 8 6 [facility] Hospital ing:ED Repository 05/28/2018/ [id number] [facility], Inpatient Ryan [place] 8 6 [facility] [facility] ing:PCURoom: Repository GVW189Xty: 1 05/28/2018 [id number] Kwame, Ambulatory BMSBuilding:B Ryan 9 [place] [facility] Repository 05/28/2018 [id number] [place], Ambulatory BMSBuilding:B Ryan 0 [place] [facility] Repository 05/28/2018 [id number] Ambulatory BMSBuilding:W Ryan 1 [facility] Repository 05/27/2018 [id number] Ambulatory Ryan Ryan 8 [facility] Hospital ing:PAT Repository 05/26/2018 [id number] Robotjulio, Ambulatory BMSBuilding:B Ryan 5 [place] [facility] Repository 05/26/2018 [id number] [place], Ambulatory BMSBuilding:B Ryan 5 [place] [facility] Repository 05/26/2018 [id number] Robotjulio, Ambulatory BMSBuilding:B Ryan 8 [place] [facility] Repository 05/26/2018 [id number] [place], Ambulatory BMSBuilding:B [place] 0 [place] [facility] Hospital Repository 05/26/2018 [id number] [place], Ambulatory BMSBuilding:B Ryan 7 [place] [facility] Repository 05/26/2018 [id number] [place], Ambulatory BMSBuilding:B [place] 4 [place] [facility] Repository 05/26/2018 [id number] [place], Ambulatory BMSBuilding:B Ryan 1 [place] [facility] Repository 05/26/2018/ [id number] Ambulatory [facility]:B [facility] 8 3 [facility] Repository 05/26/2018 [id number] Ambulatory BMSBuilding:W Ryan 2 [facility] Repository 05/24/2018 [id number] Ambulatory [place] [facility] 8 [facility]US Repository 05/23/2018 [id number] Ambulatory Ryan Ryan 0 [facility] Hospital ing:MFPLAB Repository 05/23/2018 [id number] Ambulatory [place] Ryan 2 [facility] Hospital ing:LAB.FUTUR Repository E 05/20/2018 [id number] Ambulatory [place] 8 [facility] Hospital ing:LAB.FUTUR Repository E 05/05/2018/ [id number] Ambulatory Ryan [place] 8 9 [facility] Hospital ing:DC Repository 04/13/2018/ [id number] Ambulatory [place] Ryan 8 1 [facility] Hospital ing:DC Repository 03/24/2018/ [id number] Ambulatory Ryan [place] 8 8 [facility] Hospital ing:DC Repository 03/23/2018 [id number] Ambulatory [place] Ryan 3 [facility] Hospital ing:POLAB3 Repository 02/15/2018/ [id number] Ambulatory Ryan Ryan 8 3 [facility] Hospital ing:DC Repository 01/26/2018/ [id number] Ambulatory [place] 8 4 [facility] Hospital ing:DC Repository 01/17/2018 [id number] Ambulatory Ryan Ryan 4 [facility] ing:LAB.FUTUR Repository E 12/20/2017 [id number] Ambulatory [place] Ryan 4 [facility] ing:LAB.FUTUR Repository E 12/08/2017 [id number] Ambulatory Ryan Ryan 6 [facility] ing:LAB.FUTUR Repository E 12/07/2017/ [id number] Emergency [place] Ryan 8 8 [facility] ing:ED Repository 12/05/2017/ [id number] Emergency Rayn [place] 8 5 [facility] ing:ED Repository 12/03/2017 [id number] Ambulatory Ryan Ryan 1 [facility] ing:LAB.FUTUR Repository E 11/24/2017 [id number] Ambulatory Ryan Ryan 5 [facility] ing:LAB Repository 11/11/2017 [id number] Ambulatory Ryan Ryan 2 [facility] ing:USHP Repository 11/09/2017 [id number] Ambulatory Ryan [place] 6 [facility] ing:POLAB3 Repository PAYERS PAYERS ENCOUNTER GUARANTOR PAYER SUBSCRIBER SOURCE 10/24/2018 JUN A Primary JUN A [place] [id number] [place] Insurance:ANTHE[place] CLIN[id number] [id number]: (330) Number: Repository [phone] () [id number] Date:0002-39-83IN [address] [place] [address] 50733HZ: 10/24/2018 Secondary NOT GIVENUNK [place] Insurance:SELF PAY [facility] Number: Effective Repository Date:2018-10-24 10/21/2018 JUN A Primary JUN Barrientos Ryan [id number] [place] Insurance:ANTHEM CLINEDOB: [place] PPOPolicy [id number] [id number]: (330) Number: Repository [phone] () [id number] Date:4885-04-22BA [address] [place] [address] 21014VJ: 10/21/2018 Secondary NOT GIVENUNK Ryan Insurance:SELF PAY [facility] Number: Effective Repository Date:2018-10-18 10/18/2018 JUN A Primary JUN A [place] [id number] [place] Insurance:ANTHEM CLINEDOB: [place] PP[place] [id number] Hospital 05691Ibb: (330) Number: Repository [phone] () [id number] Date:6220-31-63LX [address] [place] [address] 21092RL: 10/18/2018 Secondary NOT GIVENUNK [place] Insurance:SELF PAY [facility] Number: Effective Repository Date:2018-10-18 10/17/2018 JUN A Primary JUN A [place] [id number] [place] Insurance:ANTHEM CLINEDOB: [place] PP[place] [id number] Hospital 78236Rtd: (330) Number: Repository [phone] () [id number] Date:6181-66-93CY [address] [place] [address] 82173VI: 10/17/2018 Secondary NOT GIVENUNK Ryan Insurance:SELF PAY [facility] Number: Effective Repository Date:2018-09-14 09/09/2018 JUN A Primary JUN A [place] [id number] [place] Insurance:ANTHEM CLINEDOB: [place] [id number] Hospital 16171Gjc: (330) Number: Repository [phone] () [id number] Date:7954-61-51FQ [address] [place] [address] 66254UO: 09/09/2018 Secondary NOT GIVENUNK [place] Insurance:SELF PAY [facility] Number: Effective Repository Date:2018-09-05 08/19/2018 JUN A Primary JUN A Ryan [id number] [place] Insurance:ANTHEM CLINEDOB: [place] PP[place] [id number] Hospital 10404Dlj: (330) Number: Repository [phone] () [id number] Date:1771-74-86NW [address] [place] [address] 31914JA: 08/19/2018 Secondary NOT GIVENUNK Ryan Insurance:SELF PAY [facility] Number: Effective Repository Date:2018-08-17 08/15/2018 JUN A Primary JUN A [place] [id number] [place] Insurance:ANTHEM CLINEDOB: [place] PP[place] [id number] Hospital 50932Tny: (330) Number: Repository [phone] () [id number] Date:8121-51-74GX [address] [place] [address] 69857HC: 08/15/2018 Secondary NOT GIVENUNK [place] Insurance:SELF PAY [facility] Number: Effective Repository Date:2018-08-15 08/12/2018 JUN A Primary JUN A [place] [id number] [place] Insurance:ANTHEM CLINEDOB: [place] [id number] Hospital 77555Ytl: (330) Number: Repository [phone] () [id number] Date:3568-16-95XL [address] [place] [address] 51326JU: 08/12/2018 Secondary NOT GIVENUNK Ryan Insurance:SELF PAY [facility] Number: Effective Repository Date:2018-08-12 08/10/2018 JUN A Primary JUN A Ryan [id number] [place] Insurance:ANTHEM CLINEDOB: [place] [id number] Hospital 53807Wvn: (330) Number: Repository [phone] () [id number] Date:3676-93-77GB [address] [place] [address] 32830LU: 08/10/2018 Secondary NOT GIVENUNK [place] Insurance:SELF PAY [facility] Number: Effective Repository Date:2018-07-04 07/15/2018 JUN A Primary JUN A [place] [id number] [place] Insurance:ANTHEM CLINEDOB: [place] [facility]ARE [facility] [id number] Hospital 54920Mkl: (330) Number: Repository [phone] () [id number] Date:6477-87-87DO [address] [place] [address] 22654YY: 07/15/2018 Secondary NOT GIVENUNK [place] Insurance:SELF PAY [facility] Number: Effective Repository Date:2018-07-15 07/11/2018 JUN A Primary JUN A Ryan [id number] [place] Insurance:ANTHEM CLINEDOB: [place] PP[place] [id number] Hospital 44558Wdx: (330) Number: Repository [phone] () [id number] Date:5739-21-51FG [address] [place] [address] 27747VJ: 07/11/2018 Secondary NOT GIVENUNK [place] Insurance:SELF PAY [facility] Number: Effective Repository Date:2018-07-11 07/08/2018 JUN A Primary JUN A [place] [id number] [place] Insurance:ANTHEM CLINEDOB: [place] [id number] Hospital 66753Vks: (330) Number: Repository [phone] () [id number] Date:4785-74-76YX [address] [place] [address] 13851FX: 07/08/2018 Secondary NOT GIVENUNK Ryan Insurance:SELF PAY [facility] Number: Effective Repository Date:2018-07-08 07/06/2018 JUN A Primary JUN A [place] [id number] [place] Insurance:ANTHEM CLINEDOB[place] [id number] Hospital 76547Kbq: (330) Number: Repository [phone] () [id number] Date:5692-20-35XV [address] 680[address]KD: 07/06/2018 Secondary NOT GIVENUNK Ryan Insurance:SELF PAY [facility] Number: Effective Repository Date:2018-07-06 06/20/2018 JUN A Primary JUN A [place] [id number] [place] Insurance:ANTHEM CLINEDOB: [place] OPolicy [id number] Hospital 94135Yho: (330) Number: Repository [phone] () [id number] Date:2597-63-80TD [address] [place] [address] 62060UI: 06/20/2018 Secondary NOT GIVENUNK Ryan Insurance:SELF PAY [facility] Number: Effective Repository Date:2018-06-15 06/15/2018 JUN A Primary JUN A Ryan [id number] [place] Insurance:ANTHEM CLINEDOB: [place] [facility] [id number] Hospital 15330Dkt: (330) Number: Repository [phone] () [id number] Date:5524-46-25DB [address] 75[address]EF: 06/15/2018 Secondary NOT GIVENUNK Ryan Insurance:SELF PAY [facility] Number: Effective Repository Date:2018-06-15 06/10/2018 JUN A Primary JUN A [place] [id number] [place] Insurance:ANTHEM CLINEDOB: [place] [facility] [id number] Hospital 88327Muz: (330) Number: Repository [phone] () [id number] Date:5290-08-84OB [address] [place] [address] 15013CT: 06/10/2018 Secondary NOT GIVENUNK [place] Insurance:SELF PAY [facility] Number: Effective Repository Date:2018-06-10 06/09/2018 JUN A Primary JUN A [place] [id number] [place] Insurance:ANTHEM CLINEDOB: [place] PPOP[place]icy [id number] Hospital 45694Wka: (330) Number: Repository [phone] () [id number] Date:0398-63-56MO [address] [place] [address] 30877LP: 06/09/2018 Secondary NOT GIVENUNK [place] Insurance:SELF PAY [facility] Number: Effective Repository Date:2018-06-04 06/08/2018 JUN A Primary JUN A [place] [id number] [place] Insurance:ANTHEM CLINEDOB: [place] PP[place] [id number] Hospital 36672Ibe: (330) Number: Repository [phone] () [id number] Date:2888-30-05FZ [address] [place] [address] 27885YS: 06/08/2018 Secondary NOT GIVENUNK Ryan Insurance:SELF PAY [facility] Number: Effective Repository Date:2018-06-08 06/07/2018 JUN A Primary JUN A [place] [id number] [place] Insurance:ANTHEM CLINEDOB: [place] PP[place] [id number] Hospital 11682Oyv: (330) Number: Repository [phone] () [id number] Date:9780-73-53WK [address] [place] [address] 58118KQ: 06/07/2018 Secondary NOT GIVENUNK [place] Insurance:SELF PAY [facility] Number: Effective Repository Date:2018-06-07 06/07/2018 JUN A Primary JUN A Ryan [id number] [place] Insurance:ANTHEM CLINEDOB: [place] PPOP[place]icy [id number] Hospital 78530Ahq: (330) Number: Repository [phone] () [id number] Date:1993-58-82FD [address] [place] [address] 38153EX: 06/07/2018 Secondary NOT GIVENUNK Ryan Insurance:SELF PAY [facility] Number: Effective Repository Date:2018-06-07 06/04/2018 JUN A Primary JUN A Ryan [id number] [place] Insurance:ANTHEM CLINEDOB[facility] [place] [facility] PPOPolicy [id number] Hospital 26744Vjp: (330) Number: Repository [phone] () [id number] Date:6855-52-92BB [address] [place] [address] 13634QN: 06/04/2018 Secondary NOT GIVENUNK Ryan Insurance:SELF PAY [facility] Number: Effective Repository Date:2018-06-04 05/28/2018 JUN A Primary JUN A Ryan [id number] [place] Insurance:ANTHEM CLINEDOB[facility] [place] PP[place]icy [id number] Hospital 71061Ipi: (330) Number: Repository [phone] () [id number] Date:2338-21-10QB [address] [place] [address] 33793IH: 05/28/2018 Secondary NOT GIVENUNK Ryan Insurance:SELF PAY [facility] Number: Effective Repository Date:2018-05-26 05/28/2018 JUN A Primary JUN A Ryan [id number] [place] Insurance:ANTHEM CLINEDOB: [facility] [place] PPOPolicy [id number] Hospital 17773Hef: (330) Number: Repository [phone] () [id number] Date:1440-27-49GW [address] [place] [address] 48300RR: 05/28/2018 Secondary NOT GIVENUNK [place] Insurance:SELF PAY [facility] Number: Effective Repository Date:2018-05-28 05/28/2018 JUN A Primary JUN A Ryan [id number] [place] Insurance:ANTHEM CLINEDOB: [place] PPOP[place]icy [id number] Hospital 98015Neo: (330) Number: Repository [phone] () [id number] Date:7777-79-65WJ [address] [place] [address] 64130SZ: 05/28/2018 Secondary NOT GIVENUNK Ryan Insurance:SELF PAY [facility] Number: Effective Repository Date:2018-05-28 05/28/2018 JUN A Primary JUN A Ryan [id number] [place] Insurance:ANTHEM CLINEDOB: [place] PP[place]icy [id number] Hospital 09761Ecm: (330) Number: Repository [phone] () [id number] Date:3895-07-71LI [address] [place] [address] 73671QP: 05/28/2018 Secondary NOT GIVENUNK Ryan Insurance:SELF PAY [facility] Number: Effective Repository Date:2018-05-28 05/27/2018 JUN A Primary JUN A Ryan [id number] [place] Insurance:ANTHEM CLINEDOB: [place] PP[place]icy [id number] Hospital 86349Vjf: (330) Number: Repository [phone] () [id number] Date:6304-53-42DN [address] [place] [address] 04612VX: 05/27/2018 Secondary NOT GIVENUNK [place] Insurance:SELF PAY [facility] Number: Effective Repository Date:2018-05-26 05/26/2018 JUN A Primary JUN A [place] [id number] [place] Insurance:ANTHEM CLINEDOB: [place] PPOP[place]icy [id number] Hospital 50225Dtc: (330) Number: Repository [phone] () [id number] Date:0588-54-15GN [address] [place] [address] 39627NH: 05/26/2018 Secondary NOT GIVENUNK Ryan Insurance:SELF PAY [facility] Number: Effective Repository Date:2018-05-26 05/26/2018 JUN A Primary JUN A Ryan [id number] [place] Insurance:ANTHEM CLINEDOB: [place] PPOP[place]icy [id number] Hospital 74924Iau: (330) Number: Repository [phone] () [id number] Date:9632-51-32VW [address] [place] [address] 66876CI: 05/26/2018 Secondary NOT GIVENUNK Ryan Insurance:SELF PAY [facility] Number: Effective Repository Date:2018-05-26 05/26/2018 JUN A Primary JUN A Ryan [id number] [place] Insurance:ANTHEM CLINEDOB: [place] PPOP[place]icy [id number] Hospital 06737Odp: (330) Number: Repository [phone] () [id number] Date:9746-21-48AA [address] [place] [address] 21300AQ: 05/26/2018 Secondary NOT GIVENUNK [place] Insurance:SELF PAY [facility] Number: Effective Repository Date:2018-05-26 05/26/2018 JUN A Primary JUN A [place] [id number] [place] Insurance:ANTHEM CLINEDOB: [place] [id number] Hospital 67175Eem: (330) Number: Repository [phone] () [id number] Date:4431-46-30IU [address] [place] [address] 09535LB: 05/26/2018 Secondary NOT GIVENUNK [place] Insurance:SELF PAY [facility] Number: Effective Repository Date:2018-05-26 05/26/2018 JUN A Primary JUN A Ryan [id number] [place] Insurance:ANTHEM CLINEDOB: [place] PP[place]icy [id number] Hospital 12560Uko: (330) Number: Repository [phone] () [id number] Date:6805-75-85OB [address], [place] [address]PH: 05/26/2018 Secondary NOT GIVENUNK [place] Insurance:SELF PAY [facility] Number: Effective Repository Date:2018-05-26 05/26/2018 JUN A Primary JUN A Ryan [id number] [place] Insurance:ANTHEM CLINEDOB: [place] PP[place]icy [id number] Hospital 41788Nyy: (330) Number: Repository [phone] () [id number] Date:0630-95-69IV [address] [place] [address] [place] 81502WC: 05/26/2018 Secondary NOT GIVENUNK [place] Insurance:SELF PAY [facility] Number: Effective Repository Date:2018-05-26 05/26/2018 JUN A Primary JUN A Ryan [id number] [place] Insurance:ANTHEM CLIN[place]OB[place] PP[place]icy [id number] Hospital 70189Ugr: (330) Number: Repository [phone] () [id number] Date:1682-22-24RF [address] [place] [address] [place] 09470VC: 05/26/2018 Secondary NOT GIVENUNK [place] Insurance:SELF PAY [facility] Number: Effective Repository Date:2018-05-26 05/26/2018 JUN A Primary JUN A Ryan [id number] [place] Insurance:[place] PPOPolicy [id number] Hospital 82430Pqr: (330) Number: Repository [phone] () [id number] Date:5066-08-88PM [address] [place] [address] [place] [id number]: 05/26/2018 Secondary NOT GIVENUNK Ryan Insurance:SELF PAY [facility] Number: Effective Repository Date:2018-05-26 05/26/2018 JUN A Primary JUN A Ryan [id number] [place] Insurance:ANTHE[place] CLIN[place] [id number] Hospital 34510Vmu: (330) Number: Repository [phone] () [id number] Date:1970-26-86KB [address] [place] [address] 51305UV: 05/26/2018 Secondary NOT GIVENUNK [place] Insurance:SELF PAY [facility] Number: Effective Repository Date:2018-05-26 05/24/2018 JUN A Primary JUN A [place] [id number] [place] Insurance:ANTHE[place] CLIN[id number]: (330) ADVANTAPolicy Number: Repository [phone] () [id number] Date:5521-38-59RO [address] [place] [address] 45834KL: 05/24/2018 Secondary NOT GIVENUNK Ryan Insurance:SELF PAY [facility] Number: Effective Repository Date:2018-05-23 05/23/2018 JUN A Primary JUN A [place] [id number] [place] Insurance:ANTHE[place] CL[place] [id number] Hospital 18610Sue: (330) ADVANTAPolicy Number: Repository [phone] () [id number] Date:6471-65-83OA [address] [place] [address] 17125KI: 05/23/2018 Secondary NOT GIVENUNK Ryan Insurance:SELF PAY [facility] Number: Effective Repository Date:2018-05-23 05/23/2018 JUN A Primary JUN A [place] [id number] [place] Insurance:ANTHE[place] CLIN[place] [id number] Hospital 37480Cid: (330) ADVANTAPolicy Number: Repository [phone] () [id number] Date:3485-48-19TU [address] [place] [address] 62109OV: 05/23/2018 Secondary NOT GIVENUNK [place] Insurance:SELF PAY [facility] Number: Effective Repository Date:2018-05-23 05/20/2018 JUN A Primary JUN A [place] [id number] [place] Insurance:[place] CLIN[place] [id number] Hospital 75835Wha: (330) ADVANTAPolicy Number: Repository [phone] () [id number] Date:4997-74-52HV [address] [place] [address] 18707MM: 05/20/2018 Secondary NOT GIVENUNK [place] Insurance:SELF PAY [facility] Number: Effective Repository Date:2018-05-16 05/05/2018 JUN A Primary JUN A Ryan [id number] [place] Insurance:ANTHE[place] CLIN[place] [id number] Hospital 98692Omj: (330) ADVANTAPolicy Number: Repository [phone] () [id number] Date:4193-21-70TZ [address] [place] [address] 05112MV: 05/05/2018 Secondary NOT GIVENUNK [place] Insurance:SELF PAY [facility] Number: Effective Repository Date:2018-05-04 04/13/2018 JUN A Primary JUN A [place] [id number] [place] Insurance:ANTHE[place] CLIN[place] [id number] Hospital 10956Iov: (330) ADVANTAPolicy Number: Repository [phone] () [id number] Date:7747-01-53JE [address] [place] [address] 80720DQ: 04/13/2018 Secondary NOT GIVENUNK Yran Insurance:SELF PAY [facility] Number: Effective Repository Date:2018-04-03 03/24/2018 JUN A Primary JUN A Ryan [id number] [place] Insurance:ANTHE[place] CLINEDOB[place] [id number] Hospital 72020Zjn: (330) ADVANTAPolicy Number: Repository [phone] () [id number] Date:2276-02-59CL [address] [place] [address] 68324MM: 03/24/2018 Secondary NOT GIVENUNK Ryan Insurance:SELF PAY [facility] Number: Effective Repository Date:2018-03-04 03/23/2018 JUN A Primary JUN A Ryan [id number] [place] Insurance:ANTHE[place] CLIN[place]OB[place] [id number] Hospital 00526Xxv: (330) ADVANTAPolicy Number: Repository [phone] () [id number] Date:1896-57-48IU [address] [place] [address] 87744HA: 03/23/2018 Secondary NOT GIVENUNK [place] Insurance:SELF PAY [facility] Number: Effective Repository Date:2018-02-21 02/15/2018 JUN A Primary JUN A [place] [id number] [place] Insurance:ANTHE[place] CLIN[place]OB[place] [id number] Hospital 84484Kut: (330) ADVANTAPolicy Number: Repository [phone] () [id number] Date:4479-29-16WA [address] [place] [address] 37752JK: 02/15/2018 Secondary NOT GIVENUNK Ryan Insurance:SELF PAY [facility] Number: Effective Repository Date:2018-02-01 01/26/2018 JUN A Primary JUN A Ryan [id number] [place] Insurance:ANTHE[place] CLINEDOB[place] [id number] Hospital 87753Zcw: (330) ADVANTAPolicy Number: Repository [phone] () [id number] Date:6963-28-84MP [address] [place] [address] 44346PR: 01/26/2018 Secondary NOT GIVENUNK Ryan Insurance:SELF PAY [facility] Effective Repository Date:2018-01-04 01/17/2018 JUN A Primary JUN A [place] [id number] [place] Insurance:ANTHEM CLINEDOB[place] [id number] Hospital 83411Kxx: (330) ADVANTAPolicy Number: Repository [phone] () [id number] Date:6502-10-02PF [address] [place] [address] 31049OP: 01/17/2018 Secondary NOT GIVENUNK Ryan Insurance:SELF PAY [facility] Number: Effective Repository Date:2018-01-17 12/20/2017 JUN A Primary JUN A Ryan [id number] [place] Insurance:ANTHE[place] CLIN[place]OB[place] [id number] Hospital 35085Tgg: (330) ADVANTAPolicy Number: Repository [phone] () [id number] Date:0535-75-56CG [address] [place] [address] 34861BF: 12/20/2017 Secondary NOT GIVENUNK Ryan Insurance:SELF PAY [facility] Number: Effective Repository Date:2017-12-14 12/08/2017 JUN A Primary JUN A Ryan [id number] [place] Insurance:ANTHE[place] CLIN[place]OB[place] [id number] Hospital 96860Xwh: (330) ADVANTAPolicy Number: Repository [phone] () [id number] Date:1079-20-17LG [address] [place] [address] [place] 76903HC: 12/08/2017 Secondary NOT GIVENUNK [place] Insurance:SELF PAY [facility] Hospital Number: Effective Repository Date:2017-12-08 12/07/2017 JUN A Primary JUN A [place] [id number] [place] Insurance:ANTHEM CLIN[place]OB[place] [id number] Hospital 41582Ood: (330) ADVANTAPolicy Number: Repository [phone] () [id number] Date:7583-40-52BS [address] [place] [address] 38044RX: 12/07/2017 Secondary NOT GIVENUNK Ryan Insurance:SELF PAY [facility] Hospital Number: Effective Repository Date:2017-12-07 12/05/2017 JUN A Primary JUN A Ryan [id number] [place] Insurance:ANTHEM CLIN[place]OB[place] [id number] Hospital 61813Jwc: (330) ADVANTAPolicy Number: Repository [phone] () [id number] Date:6911-61-28VH [address] [place] [address] 42007CV: 12/05/2017 Secondary NOT GIVENUNK [place] Insurance:SELF PAY [facility] Number: Effective Repository Date:2017-12-05 12/03/2017 Jun A Primary Jun A [place] [id number] [place] Insurance:ANTHEM ClineDOB[place] [id number] Hospital 27702Slm: (330) ADVANTAPolicy Number: Repository [phone] () [id number] Date:2836-28-91ZO [address] [place] [address] 11243PK: 12/03/2017 Secondary NOT GIVENUNK [place] Insurance:SELF PAY [facility] Number: Effective Repository Date:2017-12-03 11/24/2017 Jun A Primary Jun A [place] [id number] [place] Insurance:ANT[place]M ClineDOB[place] [id number] Hospital 41600Xjg: (330) ADVANTAPolicy Number: Repository [phone] () [id number] Date:5358-32-65FL [address] [place] [address] 28463AA: 11/24/2017 Secondary NOT GIVENUNK Ryan Insurance:SELF PAY [facility] Number: Effective Repository Date:2017-11-10 11/11/2017 Jun Barrientos Primary Jun A Ryan [id number] [place] Insurance:[place] Cline[place]OPol[place] [id number] Hospital 93764Gdi: (330) Number: Repository [phone] () [id number] Date:8727-33-58CR [address] [place] [address] 84207BH: 11/11/2017 Secondary NOT GIVENUNK [place] Insurance:SELF PAY [facility] Number: Effective Repository Date:2017-11-09 11/09/2017 Jun Barrientos Primary Jun Barrientos [place] [id number] [place] Insurance:[place]M ClineDOB[place]OP[place] [id number] Hospital 52250Ihv: (330) Number: Repository [phone] () [id number] Date:3305-91-95WC [address] [place] [address] 43673DZ: 11/09/2017 Secondary NOT GIVENUNK [place] Insurance:SELF PAY [facility] Number: Effective Repository Date:2017-11-09
== END ==
PROVIDERS: Family Provider Family Medicine; PCP Family Medicine; Referring Provider Internal Medicine Gastroenterology; Visit Provider Internal Medicine Gastroenterology
DX: K74.60 Unspecified cirrhosis of liver (principal)
CPT/HCPCS: 76705

== ENCOUNTER 2018-10-24 12:43 | Emergency (ER) | payer MEDICARE, SELFPAY ==
[2018-10-24 12:44] VITALS: BP 168/85; PULSE 71; RESP 16; TEMP 36.9; O2SAT 99; BMI 29.2
--- NOTE | 2018-10-24 12:56 | VDLE_ITS ---
Reason For Study: LEG PAIN RIGHT LEFT GSV is normal. CFV is compressible, spontaneous, phasic, CFV is compressible, spontaneous, phasic, competent, and demonstrates normal competent and demonstrates normal augmentation. augmentation. FV is compressible, spontaneous, phasic, competent and demonstrates normal augmentation. POP V is compressible, spontaneous, phasic, competent and demonstrates normal augmentation. T/P Trunk is compressible. PTV is compressible. RT PerV is compressible. Procedure Exam performed portable in ED. A preliminary report was called and/or faxed to ED nurse. Interpretation Summary Deep veins of the right lower extremity are patent and compressible segmentally. There is no evidence of right lower extremity deep vein thrombosis. Valvular competence appears intact within the proximal deep venous system on the right . The right greater saphenous vein appears patent and compressible segmentally. Ordering Physician: Dion Mckeon Referring Physician: Taylor Alvarenga M.D. Performed By: Giselle Vera RVT
--- NOTE | 2018-10-24 13:09 | ED.VISSUMM ---
- ER Visit Summary Date of Service: 10/24/18 Chief Complaint: Right lower leg pain History of Present Illness: The patient is a 78 F who has pain in the right lower leg. She noticed it last night and got worse today. His pain is worse with moving and touching her right lower leg. She denies any trauma. No fevers. She uses a walker to get around because of a compression fracture in her back. She does not take any blood thinning medications. She has no history of DVT. Physical Examination: Vitals are reviewed. Right lower leg exam reveals tenderness on the right lateral lower leg. There is no bony tibial tenderness. There is ecchymosis on the mid right lower leg on the lateral side. There is no calf tenderness. There is no popliteal tenderness. No thigh tenderness or knee tenderness. Test Results: Duplex ultrasound negative for DVT Emergency Department Course and Treatment: Duplex ultrasound is negative. Patient may have a contusion, but due to the history of diabetes and the pain I will treat her with Keflex for 7 days. She will keep ice on this area and will follow up with her PCP Treatment Plan: [] Disposition: Discharge Impression: Lower leg pain, right This note was generated with [employer] dictation software. It may contain incorrect words, spelling, and punctuation that were not noted in review of the chart prior to signing ED Disposition - Plan for ED Patient: Chief Complaint: Other, Pain/Inj Referrals: Taylor Alvarenga MD [Primary Care Provider] -
--- NOTE | 2018-10-24 13:35 | ED.DEP ---
ED Disposition - Plan for ED Patient: Disposition: Home or Assisted Living Chief Complaint: Other, Pain/Inj Instructions: ED Infec Skin Cellulitis Prescriptions: Cephalexin [Keflex] 500 mg PO Q12 #14 cap Referrals: Taylor Alvarenga MD [Primary Care Provider] -
[2018-10-24 13:42] VITALS: RESP 16
--- OUTSIDE RECORDS SUMMARY | 2018-12-27 01:56 | XMS RPT_ITS ---
:1940 Author Organization OHIP Support Name Relationship Address Phone VALERIA JOHNSON Unavailable [address] [address] + [place] [address] JOHNSON, ELKE Unavailable [address] + [place] [address] R Unavailable Unavailable Unavailable JOHNSON, VALERIA Unavailable [address] + [place] [address] JOHNSON, ELKE Unavailable Unavailable + R Unavailable Unavailable Unavailable JOHNSON, VALERIA Unavailable [address] + [place] [address] JOHNSON ELKE Unavailable Unavailable + R Unavailable Unavailable Unavailable JOHNSON, VALERIA Unavailable [address] + [place] [address] JOHNSON, ELKE Unavailable Unavailable + R Unavailable Unavailable Unavailable JOHNSON, VALERIA Unavailable [address] + [place] [address] JOHNSON, ELKE Unavailable Unavailable + R Unavailable Unavailable Unavailable JOHNSON, VALERIA Unavailable [address] + [place] [address] JOHNSON, ELKE Unavailable Unavailable + R Unavailable Unavailable Unavailable JOHNSON, VALERIA Unavailable [address] + [place] [address] JOHNSON, ELKE Unavailable Unavailable + R Unavailable Unavailable Unavailable JOHNSON, VALERIA Unavailable [address] + [place] [address] JOHNSON, ELKE Unavailable Unavailable + R Unavailable Unavailable Unavailable JOHNSON, VALERIA Unavailable [address] + [place] [address] JOHNSON, ELKE Unavailable Unavailable + R Unavailable Unavailable Unavailable JOHNSON, VALERIA Unavailable [address] + [place] [address] JOHNSON, ELKE Unavailable Unavailable + R Unavailable Unavailable Unavailable JOHNSON, VALERIA Unavailable [address] + [place] [address] JOHNSON, ELKE Unavailable Unavailable + R Unavailable Unavailable Unavailable JOHNSON, VALERIA Unavailable [address] + [place] [address] JOHNSON, ELKE Unavailable Unavailable + R Unavailable Unavailable Unavailable JOHNSON, VALERIA Unavailable [address] + [place] [address] JOHNSON, ELKE Unavailable Unavailable + R Unavailable Unavailable Unavailable JOHNSON, VALERIA Unavailable [address] + [place] [address] JOHNSON, ELKE Unavailable Unavailable + R Unavailable Unavailable Unavailable JOHNSON, VALERIA Unavailable [address] + [place] [address] JOHNSON, ELKE Unavailable Unavailable + R Unavailable Unavailable Unavailable JOHNSON, VALERIA Unavailable [address] + [place] [address] JOHNSON, ELKE Unavailable Unavailable + R Unavailable Unavailable Unavailable Johnson, Elke Unavailable Unavailable + JOHNSON, VALERIA Unavailable [address] + [place] [address] R Unavailable Unavailable Unavailable Johnson, Elke Unavailable Unavailable + JOHNSON, VALERIA Unavailable [address] + [place] [address] R Unavailable Unavailable Unavailable Johnson, Elke Unavailable Unavailable + JOHNSON, VALERIA Unavailable [address] + [place] [address] R Unavailable Unavailable Unavailable Johnson, Elke Unavailable . + [place] [address] JOHNSON, VALERIA Unavailable [address] + [place] [address] R Unavailable Unavailable Unavailable Johnson, Elke Unavailable Unavailable + [place] [address] JOHNSON, VALERIA Unavailable [address] + [place] [address] R Unavailable Unavailable Unavailable Johnson, Elke Unavailable Unavailable + [place] [address] JOHNSON, VALERIA Unavailable [address] + [place] [address] R Unavailable Unavailable Unavailable JOHNSON, VALERIA Unavailable [address] + [place] [address] R Unavailable Unavailable Unavailable Johnson, Elke Unavailable Unavailable + [place] [address] JOHNSON, VALERIA Unavailable [address] + [place] [address] R Unavailable Unavailable Unavailable JOHNSON, VALERIA Unavailable [address] + [place] [address] JOHNSON, ELKE Unavailable Unavailable + R Unavailable Unavailable Unavailable JOHNSON, VALERIA Unavailable [address] + [place] [address] JOHNSON, ELKE Unavailable Unavailable + R Unavailable Unavailable Unavailable JOHNSON, VALERIA Unavailable [address] + [place] [address] JOHNSON, ELKE Unavailable Unavailable + R Unavailable Unavailable Unavailable JOHNSON, VALERIA Unavailable [address] + [place] [address] R Unavailable Unavailable Unavailable JOHNSON, VALERIA Unavailable [address] + [place] [address] R Unavailable Unavailable Unavailable JOHNSON, VALERIA Unavailable [address] + [place] [address] R Unavailable Unavailable Unavailable JOHNSON, VALERIA Unavailable [address] + [place] [address] R Unavailable Unavailable Unavailable JOHNSON, VALERIA Unavailable [address] + [place] [address] R Unavailable Unavailable Unavailable JOHNSON, VALERIA Unavailable [address] + [place] [address] R Unavailable Unavailable Unavailable JOHNSON, VALERIA Unavailable [address] + [place] [address] R Unavailable Unavailable Unavailable JOHNSON, VALERIA Unavailable [address] + [place] [address] JOHNSON ELKE Unavailable Unavailable + R Unavailable Unavailable Unavailable JOHNSON, VALERIA Unavailable [address] + [place] [address] R Unavailable Unavailable Unavailable JOHNSON, VALERIA Unavailable [address] + [place] [address] R Unavailable Unavailable Unavailable JOHNSON, VALERIA Unavailable [address] + [place] [address] R Unavailable Unavailable Unavailable JOHNSON, VALERIA Unavailable [address] + [place] [address] R Unavailable Unavailable Unavailable JOHNSON, VALERIA Unavailable [address] + [place] [address] R Unavailable Unavailable Unavailable JOHNSON, VALERIA Unavailable [address] + [place] [address] R Unavailable Unavailable Unavailable JOHNSONVALERIA Unavailable [address] + [place] [address] R Unavailable Unavailable Unavailable JOHNSON, VALERIA Unavailable [address] + [place] [address] R Unavailable Unavailable Unavailable JOHNSON, VALERIA Unavailable [address] + [place] [address] R Unavailable Unavailable Unavailable JOHNSONVALERIA Unavailable [address] + [place] [address] R Unavailable Unavailable Unavailable JOHNSONVALERIA Unavailable [address] + [place] [address] R Unavailable Unavailable Unavailable JOHNSON VALERIA Unavailable [address] + [place] [address] R Unavailable Unavailable Unavailable JOHNSON, VALERIA Unavailable [address] + [place] [address] R Unavailable Unavailable Unavailable JOHNSON VALERIA Unavailable [address] + [place] [address] R Unavailable Unavailable Unavailable JOHNSONVALERIA Unavailable [address] + [place] [address] R Unavailable Unavailable Unavailable JOHNSON, VALERIA Unavailable [address] + [place] [address] R Unavailable Unavailable Unavailable JOHNSON, VALERIA Unavailable [address] + [place] [address] R Unavailable Unavailable Unavailable JOHNSON, VALERIA Unavailable [address] + [place] [address] R Unavailable Unavailable Unavailable JOHNSON, VALERIA Unavailable [address] + [place] [address] R Unavailable Unavailable Unavailable Care Team Providers Name Role Phone Eddy Siu Attending Unavailable Jolliff, Taylor Primary Care Unavailable Jabour, Vincent Referring Unavailable Michel, Irma Consulting Unavailable Jolliff, Taylor Consulting Unavailable Eddy iSu Attending Unavailable Jabour, Vincent Referring Unavailable Jolliff, Taylor Primary Care Unavailable MichelYovanyIrma Attending Unavailable Jolliff, Taylor Primary Care Unavailable MichelYovanyIrma Attending Unavailable Jolliff, Taylor Primary Care Unavailable Michel, Irma Referring Unavailable JaEddy gómez Attending Unavailable Jabour, Vincent Referring Unavailable Jolliff, [...] Unavailable Jolliff, Taylor Primary Care Unavailable Michel Imra Attending Unavailable Jolliff, Taylor Primary Care Unavailable Michel, Irma Referring Unavailable Michel, Irma Attending Unavailable Michel, Irma Referring Unavailable Jolliff, Taylor Primary Care Unavailable Michel [...] Unavailable Jolliff, Taylor Primary Care Unavailable Paintsil, Prosper Consulting Unavailable Michel, Irma Consulting Unavailable [place], Massiel Admitting Unavailable Paintsil, Prosper Attending Unavailable Jolliff, Taylor Primary Care Unavailable Paintsil, Prosper Consulting Unavailable Michel, Irma Consulting Unavailable Rob[place], Massiel Consulting Unavailable [place], Massiel Admitting Unavailable Paintsil, Prosper Attending Unavailable Jolliff, Taylor Primary Care Unavailable Paintsil, Prosper Consulting Unavailable Michel, Irma Consulting Unavailable [place], Massiel Consulting Unavailable [place], Massiel Admitting Unavailable [place], Massiel Attending Unavailable Jolliff, Taylor Primary Care Unavailable Paintsil, Prosper Consulting Unavailable Michel, Irma Consulting Unavailable [place], Massiel Consulting Unavailable [place], Massiel Admitting Unavailable Paintsil, Prosper Attending Unavailable Jolliff, Taylor Primary Care Unavailable Paintsil, Prosper Consulting Unavailable Michel, Irma Consulting Unavailable [place], Massiel Consulting Unavailable [place], Massiel Admitting Unavailable Damion, Greyson Attending Unavailable Jolliff, Taylor Primary Care Unavailable Paintsil, Prosper Consulting Unavailable Michel, Irma Consulting Unavailable Kimo, Lesley S. Consulting Unavailable [place], Massiel Consulting Unavailable [place], Massiel Admitting Unavailable Damion, Greyson Attending Unavailable Jolliff, Taylor Primary Care Unavailable Paintsil, Prosper Consulting Unavailable Michel, Irma Consulting Unavailable Kimo, Lesley S. Consulting Unavailable [place], Massiel Consulting Unavailable [place], Massiel Admitting Unavailable Paintsil, Prosper Attending Unavailable Jolliff, Taylor Primary Care Unavailable Paintsil, Prosper Consulting Unavailable Michel, Irma Consulting Unavailable [place], Massiel Consulting Unavailable [place], Massiel Admitting Unavailable [place], Massiel Attending Unavailable Jolliff, Taylor Primary Care Unavailable Paintsil, Prosper Consulting Unavailable Michel, Irma Consulting Unavailable [place], Massiel Consulting Unavailable [place], Massiel Admitting Unavailable Korkael, Moon Lois Attending Unavailable Jolliff, Taylor Primary Care Unavailable Paintsil, Prosper Consulting Unavailable Michel, Irma Consulting Unavailable [place], [...] Attending Unavailable [place], Massiel Referring Unavailable Con, Buffalo Attending Unavailable [place], Massiel Referring Unavailable Michel, [...] 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 Repository 06/10/2018 Unknown N18.4 - Chronic kidney Michel Irma Active [place] disease, stage 4 Community (severe) / Hospital N18.4(ICD-10) Repository 05/30/2018 Unknown G89.18 - Other acute Koram, Moon Active [place] postprocedural pain / [place] Community G89.18(ICD-10) Hospital Repository 07/01/2018 Unknown R94.31 - Abnormal Con, Regan Active [place] electrocardiogram Community [ECG] [EKG] / Hospital R94.31(ICD-10) Repository 07/01/2018 Unknown I45.10 - Unspecified Con, Regan Active [place] right bundle-branch Community block / I45.10(ICD-10) Hospital Repository 05/27/2018 Unknown K85.90 - Acute [place], Active [place] pancreatitis without [facility] necrosis or infection, Hospital unspecified / Repository K85.90(ICD-10) 05/27/2018 Unknown K81.9 - Cholecystitis, [place], Active [place] unspecified / [place] Community K81.9(ICD-10) Hospital Repository 05/27/2018 Unknown K80.20 - Calculus of [place], Active [place] gallbladder without [place] [facility] cholecystitis without Hospital obstruction / Repository K80.20(ICD-10) 05/27/2018 Unknown K80.00 - Calculus of [place], Active [place] gallbladder with acute Massiel [facility] cholecystitis without Hospital obstruction / Repository K80.00(ICD-10) 05/23/2018 Unknown E87.1 - [place] Arredondo Active [place] Hypo-osmolality and Community hyponatremia / Hospital E87.1(ICD-10) Repository 11/24/2017 Unknown R80.9 - Proteinuria, Michel [place] Active [place] unspecified / Community R80.9(ICD-10) Hospital Repository PROCEDURES PROCEDURES No Procedure Records FoundRESULTS RESULTS VENOUS DUPLEX LOWER Observed: 10/25/2018 Status: F Source: [place] EXTREMITY 3:49 PM [facility] REPOSITORY [facility] Cardiovascular Services [address] [place] [address] Venous Duplex US, Unilateral 10/24/18 1310 MR#: [id number] Acct: [id number] Name: JUN JOHNSON Rep #: [id number] : 1940 78 From: Tomasz Hutchison MD [...] Dictated: 10/24/18 1310 Date Transcribed: 10/25/18 1548 Director Of Industrial Relations: Signed DISCHARGE INSTRUCTION Observed: 10/24/2018 Status: F Source: [place] 1:36 PM [facility] REPOSITORY [facility] Medical Records Department [address] [place] [address] Discharge Instruction 10/24/18 1335 MR#: [id number] Acct: [id number] Name: JUN JOHNSON Rep #: [id number] : 1940 78 From: Dion Mckeon MD [...] your Primary Care Provider. Call [facility] ([phone]) or report to the closest Emergency Room. Call 911 if necessary. 10/24/18 1336 <Electronically signed by Dion Mckeon MD> Date Dion Mckeon MD Cosigner Signature (If Indicated): Date CC: [place] Alvarenga MD EMERGENCY DEPARTMENT Observed: 10/24/2018 Status: F Source: [place] SUMMARY 1:35 PM [facility] REPOSITORY [facility] Medical Records Department [address] [place] [address] Emergency Department Summary 10/24/18 1309 MR#: [id number] Acct: [id number] Name: J[place] JOHNSON Rep #: [id number] : 1940 78 From: [place] Mckeon MD [...] pain, right This note was generated with [employer]att[employer] dictation software. It may contain incorrect words, [...] problems, contact your Primary Care Provider. Call [facility] ([phone]) or report to the closest Emergency Room. Call 911 if necessary. 10/24/18 8328 <Electronically signed by [place] Mckeon MD> Date Dion Mckeon MD Cosigner Signature (If Indicated): Date CC: [place] Alvarenga MD ABDOMEN LIMITED Observed: 10/21/2018 Status: F Source: [place] 10:13 AM [facility] REPOSITORY [facility] Imaging Services [address] [place] [address] Abdomen Limited MR#: [id number] Acct: [id number] Name: JUN JOHNSON Rep #: [id number] : 1940 F 78 From: Luciano Ross DO PCP: [place] Alvarenga MD Status: REG CLI Study: Abdomen Limited Date of Exam: 10/21/18 Exam# [id number] Ordering Dr: Eddy Siu MD STUDY: ABDOMINAL [...] Luciano Ross DO at 23:58 EST Tel [phone], Service support , CC: [place] Alvarenga MD; Eddy Siu Director Of Industrial Relations: Signed BASIC METABOLIC Collected: 10/17/2018 Status: F Source: [place] PROFILE (BMP) 10:01 AM [facility] REPOSITORY TYPE CODE TESTS RESULT OUT [...] 11 Performed By: #### L500.2500, L500.3400 #### [facility] [address] [place], [place], [id number] LIVER PROFILE Collected: 10/17/2018 Status: F Source: [place] 10:01 AM [facility] REPOSITORY TYPE CODE TESTS RESULT OUT [...] 0.20 Performed By: #### L500.2500, L500.3400 #### [facility] [address] [place], [address] L/S SPINE MIN 4 Observed: 10/17/2018 Status: F Source: [place] VIEWS 10:01 AM [facility] REPOSITORY [facility] Imaging Services [address] [place] [address] L/S Spine Min 4 Views MR#: [id number] Acct: [id number] Name: JUN JOHNSON Rep #: [id number] : 1940 F 78 From: Marshall Bell MD PCP: [place] Alvarenga MD Status: REG CLI Study: L/S Spine Min 4 Views Date of Exam: 10/17/18 Exam# [id number] Ordering Dr: [place] Alvarenga MD STUDY: X-RAY [...] Service support , CC: [place] Alvarenga MD Director Of Industrial Relations: Signed CBC-COMPLETE BLOOD CNT Collected: 09/09/2018 Status: F Source: [place] NO DIFF 12:58 PM [facility] REPOSITORY TYPE CODE TESTS RESULT OUT [...] MPV 10.4 Performed By: #### L100.0500 #### [facility] [address] [place], [place], [address] RENAL PROFILE Collected: 09/09/2018 Status: F Source: [place] 12:58 PM [facility] REPOSITORY TYPE CODE TESTS RESULT OUT [...] CO2 20.0 Performed By: #### L500.3600 #### [facility] [address] [facility] [place], [place], [address] VITAMIN D,25 HYDROXY Collected: 09/09/2018 Status: F Source: [place] 12:58 PM [facility] REPOSITORY TYPE CODE TESTS RESULT OUT OF RANGE REFERENCE UNITS LAB L506.1000 29.95-100.01 ng/mL Normal Vitamin D 39.1 25-OH Result Comment: Vitamin D 25(OH) Status Range Deficiency <20 ng/mL (50nmol/L) Insuffciency 20 - 30 ng/mL (50 - 75 nmol/L) Sufficiency 30 - 100 ng/mL (75 - 250 nmol/L) Toxicity >100 ng/mL (>250 nmol/L) Performed By: #### L506.1000 #### [facility] [address] [place], [address] PTHIN Collected: 09/09/2018 Status: F Source: [place] 12:58 PM [facility] REPOSITORY TYPE CODE TESTS RESULT OUT OF RANGE REFERENCE UNITS LAB L509.1000 18.4-80.1 pg/mL High PTHIN 120.0 Performed By: #### L509.1000 #### [facility] [address] [place], [place], [address] BASIC METABOLIC Collected: 08/19/2018 Status: F Source: [place] PROFILE ([facility]) 4:47 PM [facility] REPOSITORY TYPE CODE TESTS RESULT OUT [...] GAP 13 Performed By: #### L500.2500 #### [facility] [address] [place], [place], [address] BASIC METABOLIC Collected: 08/12/2018 Status: F Source: [place] PROFILE (BMP) 4:39 PM [facility] REPOSITORY Order Comment: DR SIU ORDERED: LIVER [...] Performed By: #### L500.2500, L500.3400, L501.2300 #### [facility] [address] [place], [place], [address] LIVER PROFILE Collected: 08/12/2018 Status: F Source: [place] 4:39 PM [facility] REPOSITORY Order Comment: DR SIU ORDERED: LIVER [...] Performed By: #### L500.2500, L500.3400, L501.2300 #### [facility] [address] [place], [place], [id number] PHOSPHORUS Collected: 08/12/2018 Status: F Source: [place] 4:39 PM [facility] REPOSITORY Order Comment: DR SIU ORDERED: LIVER DR ARREDONDO ORDERED: RENAL TYPE CODE TESTS RESULT OUT OF RANGE REFERENCE UNITS LAB L501.2300 2.5-4.9 mg/dL High PHOS 5.0 Performed By: #### L500.2500, L500.3400, L501.2300 #### [facility] [address] [place], [address] LIVER PROFILE Collected: 07/15/2018 Status: F Source: [place] 2:41 PM [facility] REPOSITORY TYPE CODE TESTS RESULT OUT [...] BILI 0.33 Performed By: #### L500.3400 #### [facility] [address] [place], [address] PROTHROMBIN TIME W/INR Collected: 07/15/2018 Status: F Source: [place] 2:41 PM [facility] REPOSITORY TYPE CODE TESTS RESULT OUT OF RANGE REFERENCE UNITS LAB L300.4150 11.7-14.9 SECONDS High PROTIME 16.6 LAB L300.4200 Normal INR 1.3 Performed By: #### L300.3900, L300.4310 #### [facility] [address] [place], [address] PARTIAL THROMBOPLAST Collected: 07/15/2018 Status: F Source: [place] TIME 2:41 PM [facility] REPOSITORY TYPE CODE TESTS RESULT OUT OF REFERENCE UNITS RANGE LAB L300.4310 24.1-36.2 Seconds High PTT 41.5 Performed By: #### L300.3900, L300.4310 #### [facility] [address] [place], [address] AFP, TUMOR MARKER Collected: 07/15/2018 Status: F Source: [place] 2:41 PM [facility] REPOSITORY Order Comment: Is Patient ? N TYPE CODE TESTS RESULT OUT OF RANGE REFERENCE UNITS LAB L3300.0700 0.0-8.3 ng/mL High AFP TUMOR 9.1 2253 Result Comment: OnBeep ECLIA methodology Performed By: #### L3300.0700, L3400.0700 #### [facility] (refer to report for specific site) refer to report for address and phone number CERULOPLASMIN Collected: 07/15/2018 Status: F Source: [place] 2:41 PM [facility] REPOSITORY Order Comment: Is Patient ? N TYPE CODE TESTS RESULT OUT OF RANGE REFERENCE UNITS LAB L3400.0700 19.0-39.0 mg/dL Normal CERULOPLAS 1560 21.9 Result Comment: Performed at: [address] [id number] Him Specialist: Eddy Feliciano PhD, Phone: [phone] Performed By: #### L3300.0700, L3400.0700 #### [facility] (refer to report for specific site) refer to report for address and phone number AIDA W/ REFLEX MULT Collected: 07/15/2018 Status: F Source: [place] CONFIRM 2:41 PM [facility] REPOSITORY TYPE CODE TESTS RESULT OUT [...] ANTISCLER Normal <0.2 LAB L3410.1200 0.0-0.9 AI YOUTH CARE SPECIALIST Ab High 1.0 LAB L3410.1300 0.0-0.9 AI [...] Sm (anti-Waters) SLE 15 - 30% --------- YOUTH CARE SPECIALIST Mixed Connective Tissue Disease 95% (U1 nRNP, [...] LAB L3900.2100 90-200 mg/dL Normal A- 117 [id number] Result Comment: Performed at: - [facility] [id number] Him Specialist: Eddy Feliciano PhD, Phone: [phone] Performed By: #### L3100.5450, L3900.2100 #### [facility] (refer to report for specific site) refer to report for address and phone number RENAL PROFILE Collected: 07/11/2018 Status: F Source: [place] 4:59 PM [facility] REPOSITORY Order Comment: SEND RESULTS TO ALSO. [...] CO2 20.0 Performed By: #### L500.3600 #### [facility] [address] [place], [address] POTASSIUM Collected: 07/08/2018 Status: F Source: [place] 4:18 PM [facility] REPOSITORY TYPE CODE TESTS RESULT OUT OF RANGE REFERENCE UNITS LAB L501.5600 3.5-5.1 mmol/L Normal K 4.7 Performed By: #### L501.5600 #### [facility] [address] [place], [address] BASIC METABOLIC Collected: 07/06/2018 Status: F Source: [place] PROFILE (BMP) 12:02 PM [facility] REPOSITORY TYPE CODE TESTS RESULT OUT [...] By: #### L500.2500, L500.3400, L501.2400, L501.2450 #### [facility] [address] [place], [address] LIVER PROFILE Collected: 07/06/2018 Status: F Source: [place] 12:02 PM [facility] REPOSITORY TYPE CODE TESTS RESULT OUT [...] By: #### L500.2500, L500.3400, L501.2400, L501.2450 #### [facility] [address] [place], [place], [id number] AMYLASE Collected: 07/06/2018 Status: F Source: [place] 12:02 PM [facility] REPOSITORY TYPE CODE TESTS RESULT OUT OF RANGE REFERENCE UNITS LAB L501.2400 25-115 U/L Normal TAYLOR 75 Performed By: #### L500.2500, L500.3400, L501.2400, L501.2450 #### [facility] [address] [place], [place], [address] LIPASE Collected: 07/06/2018 Status: F Source: [place] 12:02 PM [facility] REPOSITORY TYPE CODE TESTS RESULT OUT OF REFERENCE UNITS RANGE LAB L501.2450 73-393 U/L High LIPASE 939 Performed By: #### L500.2500, L500.3400, L501.2400, L501.2450 #### [facility] [address] [place], [place], [address] HEMOGLOBIN A1C Collected: 07/06/2018 Status: F Source: [place] 12:02 PM [facility] REPOSITORY TYPE CODE TESTS RESULT OUT OF RANGE REFERENCE UNITS LAB L501.9985 4.2-6.3 % High HGB A1C 6.4 Performed By: #### L501.9985 #### [facility] [address] [place], [place], [address] RENAL PROFILE Collected: 06/20/2018 Status: F Source: [place] 4:43 PM [facility] REPOSITORY Order Comment: ORDERED: RENAL, NA : PROTEIN ELECT, LKM AB'S Comments: [id number];LIVER,KIDNEY MICRO;SERUM;FROZ TYPE CODE TESTS RESULT OUT OF [...] CO2 24.0 Performed By: #### L500.3600 #### [facility] [address] [place], [place], [address] PROTEIN ELECTROPH, S Collected: 06/20/2018 Status: F Source: [place] 4:43 PM [facility] REPOSITORY Order Comment: ORDERED: RENAL, NA : [...] scan will follow via computer, mail, or yard jockey delivery. LAB L3100.4340 . Normal NOTE: Comment Result Comment: The SPE pattern appears essentially unremarkable. Evidence of monoclonal protein is not apparent. Performed at: [facility] [id number] Him Specialist: Eddy Feliciano PhD, Phone: [phone] Performed By: #### L3100.2150 #### [facility] (refer to report for specific site) refer to report for address and phone number MISCELLANEOUS LAB Collected: 06/20/2018 Status: F Source: [place] PROCEDURE 4:43 PM [facility] REPOSITORY Order Comment: ORDERED: RENAL, NA : PROTEIN ELECT, LKM AB'S Comments: [id number];LIVER,KIDNEY MICRO;SERUM;FROZ Test(s) Ordered: [id number];LIVER,KIDNEY MICRO;SERUM;FROZ TYPE CODE TESTS RESULT OUT OF RANGE REFERENCE UNITS LAB L801.1541 Normal [facility] TEST Result Comment: TEST RESULT LIMITS [...] SITE INFORMATION. Performed By: #### L801.1541 #### [facility] [address] [place], [address] MARVEL + PROTEIN ELECT, Collected: 06/15/2018 Status: F Source: BENNETT SERUM 10:02 AM [facility] REPOSITORY Order Comment: Is Patient Fasting? N Comments: [id number] LKM AB SER FZ TYPE CODE TESTS RESULT OUT OF RANGE REFERENCE UNITS LAB L3100.3500 6.0-8.5 g/dL Low PROTEIN,TOTAL 5.9 LAB L3200.3919 267-9402 mg/dL Normal IMMUNO G 1292 LAB L3200.1400 64-422 mg/dL Normal IMMUNO A 256 LAB L3200.1500 26-217 mg/dL Normal IMMUNOGL M 72 LAB L3200.1510 2.9-4.4 g/dL Low ALBUMIN 2.6 LAB L3200.1520 0.0-0.4 g/dL Normal ETBOL-8-WLVX 0.2 LAB L3200.1530 0.4-1.0 g/dL Normal PBEPD-4-CMIO 0.8 LAB L3200.1540 0.7-1.3 g/dL Normal BETA GLOBULIN 1.0 LAB L3200.1550 0.4-1.8 g/dL Normal GAMMA GLOBULIN 1.3 LAB L3200.1560 Normal M-SPIKE Result Comment: NOt Observed LAB L3200.1570 2.2-3.9 g/dL Normal GLOBULIN, TOTAL 3.3 LAB L3200.1580 0.7-1.7 A/G Normal RATIO 0.8 LAB L3200.1590 . MARVEL Normal RESULT,S Comment: Result Comment: Presence of monoclonal protein is unclear at this time. Suggest repeat in 3 to 6 months if clinically indicated. LAB L3200.1594 . Normal NOTE: Comment Result Comment: Protein electrophoresis scan will follow via computer, mail, or yard jockey delivery. Performed at: [address] [id number] Him Specialist: Eddy Feliciano PhD, Phone: [phone] Performed By: #### L3100.3425 #### [facility] (refer to report for specific site) refer to report for address and phone number MISCELLANEOUS LAB Collected: 06/15/2018 Status: F Source: RYAN PROCEDURE 10:02 AM [facility] REPOSITORY Order Comment: Comments: [id number] LKM AB SER FZ Test(s) Ordered: [id number] LKM AB SER FZ TYPE CODE TESTS RESULT OUT OF RANGE REFERENCE UNITS LAB L801.1541 Normal [facility] TEST Result Comment: TEST RESULT UNITS REF INTERVAL Liver-Kidney Microsomal Ab <1.0 Units 0.0 - 20.0 Negative 0.0 - 20.0 Equivocal 20.1 - 24.9 Positive >24.9 LKM type 1 antibodies are detected in patients with autoimmune hepatitis type 2 and in up to 8% of patients with chronic HCV infection. TESTING PERFORMED AT [facility]. ORIGINAL REPORT ON FILE IN LAB CONTAINS ADDITIONAL TEST SITE INFORMATION. Performed By: #### L801.1541 #### [facility] [address] [place], [address] BASIC METABOLIC Collected: 06/10/2018 Status: F Source: RYAN PROFILE (BMP) 5:10 PM [facility] REPOSITORY TYPE CODE TESTS RESULT OUT [...] GAP 9 Performed By: #### L500.2500 #### [facility] [address] [place], [address] ANTI-SMOOTH MUSCLE ABS Collected: 06/08/2018 Status: F Source: BENNETT 5:43 PM [facility] REPOSITORY Order Comment: Is Patient ? N [...] Status: F Source: RYAN AG 5:43 PM [facility] REPOSITORY Order Comment: Is Patient ? N TYPE CODE TESTS RESULT OUT OF RANGE REFERENCE UNITS LAB L3100.0400 Negative Normal HB Negative SURF AG Result Comment: Performed at: - [facility] [id number] Him Specialist: Eddy Feliciano PhD, Phone: [phone] Performed By: #### L803.2200, L3100.0390, L3100.0625, L3300.0700 #### [facility] (refer to report for specific site) refer to report for address and phone number HEPATITIS C ANTIBODIES Collected: 06/08/2018 Status: F Source: RAYN 5:43 PM [facility] REPOSITORY Order Comment: Is Patient ? N TYPE CODE TESTS RESULT OUT OF RANGE REFERENCE UNITS LAB L3100.0650 0.0-0.9 s/co ratio Normal HEP C AB 0.1 Result Comment: Negative: < 0.8 Indeterminate: 0.8 - 0.9 Positive: > 0.9 The CDC recommends that a positive HCV antibody result be followed up with a HCV Nucleic Acid Amplification test (256846). Performed By: #### L803.2200, L3100.0390, L3100.0625, L3300.0700 #### [facility] (refer to report for specific site) refer to report for address and phone number AFP, TUMOR MARKER Collected: 06/08/2018 Status: F Source: RYAN 5:43 PM [facility] REPOSITORY Order Comment: Is Patient ? N TYPE CODE TESTS RESULT OUT OF RANGE REFERENCE UNITS LAB L3300.0700 0.0-8.3 ng/mL High AFP TUMOR 9.9 2253 Result Comment: Adelso ECLIA methodology Performed By: #### L803.2200, L3100.0390, L3100.0625, L3300.0700 #### [facility] (refer to report for specific site) refer to report for address and phone number ANTI-MITOCHONDRIAL AB Collected: Status: F Source: RYAN 06/08/2018 5:43 PM [facility] REPOSIT[facility] TYPE CODE TESTS RESULT OUT [...] Status: F Source: RYAN DIRECT 5:43 PM [facility] REPOSITORY TYPE CODE TESTS RESULT OUT OF REFERENCE UNITS RANGE LAB L3100.9693 Negative High Positive AIDA-DIRECT Result Comment: Performed at: - [facility] [id number] Him Specialist: Eddy Feliciano PhD, Phone: [phone] Performed By: #### L800.1280, [id number] #### [facility] (refer to report for specific site) refer to report for address and phone number SURGERY VISIT REPORT Observed: 06/07/2018 Status: F Source: RYAN 2:29 PM [facility] REPOSITORY [facility] [address] [place] [address]. [address] [place] [address] OFFICE VISIT Date of Service: 06/07/18 MR#: [id number] Acct: [id number] Name: JUN JOHNSON Rep #: [id number] : 1940 Provider: Massiel Puente MD Age/Sex: 78/F Location: [facility] Status: Signed Intake Intake Visit Reasons: Gallbladder 05/31 Chief Complaint: abd pain Billing And Insurance Coordinator Required: No Is patient in pain?: Yes [...] agreeable with plan. Massiel Puente M.D. Pager: [phone] [facility] [address] [place] [address], [facility], [address] [place], [place] [id number] Office: [phone] Orders Orders: Plan Detail Follow Up 1 Week Coding Level of Care Code Global Post Op Diagnoses S/P laparoscopic cholecystectomy Z90.49 Chronic hepatitis K73.9 06/07/18 1429 <Electronically signed by Massiel Puente MD> Date Massiel Puente MD Cosigner Signature: Date (if applicable) CC: Taylor Alvarenga MD; Eddy Siu LIVER PROFILE Collected: 06/07/2018 Status: F Source: BENNETT 2:29 PM [facility] REPOSITORY TYPE CODE TESTS RESULT OUT [...] Performed By: #### L500.3400, L300.3900, L300.4310 #### [facility] [address] [place], [address] PROTHROMBIN TIME W/INR Collected: 06/07/2018 Status: F Source: RYAN 2:29 PM [facility] REPOSITORY TYPE CODE TESTS RESULT OUT OF RANGE REFERENCE UNITS LAB L300.4150 11.7-14.9 SECONDS High PROTIME 16.2 LAB L300.4200 Normal INR 1.3 Performed By: #### L500.3400, L300.3900, L300.4310 #### [facility] [address] [place], [address] PARTIAL THROMBOPLAST Collected: 06/07/2018 Status: F Source: RYAN TIME 2:29 PM [facility] REPOSITORY TYPE CODE TESTS RESULT OUT OF REFERENCE UNITS RANGE LAB L300.4310 24.1-36.2 Seconds High PTT 36.3 Performed By: #### L500.3400, L300.3900, L300.4310 #### [facility] [address] [place], [address] EMERGENCY DEPARTMENT Observed: 06/04/2018 Status: F Source: RYAN SUMMARY 10:02 PM [facility] REPOSITORY [facility] Medical Records Department [address] [facility] [place] [address] Emergency Department Summary 06/04/18 2159 MR#: [id number] Acct: [id number] Name: JUN JOHNSON Rep #: [id number] : 1940 78 From: Cameron Carlson MD [...] I diabetic This note was generated with [employer] software. It may contain incorrect words, spelling, [...] your Primary Care Provider. Call [facility] ([phone]) or report to the closest Emergency Room. Call 911 if necessary. 06/04/182201 <Electronically signed by Cameron Carlson MD> Date Cameron Carlson MD Cosigner Signature (If Indicated): Date CC: Taylor Alvarenga MD BASIC METABOLIC Collected: 06/04/2018 Status: F Source: RYAN PROFILE (BMP) 9:05 PM [facility] REPOSITORY TYPE CODE TESTS RESULT OUT [...] GAP 10 Performed By: #### L500.2500 #### [facility] [address] [facility] [place], [address] 12 LEAD ELECTROCARDIOGRAM Observed: 05/31/2018 Status: F Source: BENNETT 3:11 PM [facility] REPOSITORY [facility] Cardiovascular Services [address] [place] [address] 12 Lead EKG 05/26/18 1315 MR#: [id number] Acct: [id number] Name: JUN JOHNSON Rep #: [id number] : 1940 78 From: Regan Andujar MD Attending Dr: Massiel Puente MD Status: DIS IN Ordering Dr: Dennis Mccormick MD Date: 05/26/18 Location: [facility] Sex: F C Admitted: 05/28/18 Test [...] ECG Confirmed by REGAN ANDUJAR MD ([id number]), editorial intern NIESHA SIERRA ([id number]) on 05/31/2018 3:11:33 PM Referred By: Confirmed By:REGAN ANDUJAR MD 05/31/18 1511 Date Regan Andujar MD CC: Taylor Alvarenga MD; Dennis Mccormick MD; Massiel Puente MD Signed 12 LEAD ELECTROCARDIOGRAM Observed: 05/31/2018 Status: F Source: BENNETT 3:02 PM [facility] REPOSITORY [facility] [address] 12 Lead EKG 05/28/18 0901 MR#: [id number] Acct: [id number] Name: JUN JOHNSON Rep #: [id number] : 1940 78 From: Regan Andujar MD Attending Dr: Massiel Puente MD Status: DIS IN Ordering Dr: Donita Toscano MD Date: 05/28/18 Location: [facility] Sex: F C Admitted: 05/28/18 Test Reason : [employer] Blood Pressure : / mmHG Vent. Rate [...] UNCONFIRMED Confirmed by REGAN ANDUJAR MD ([id number]), editorial intern NIESHA SIERRA ([id number]) on 05/31/2018 3:02:20 PM Referred By: Confirmed By:REGAN ANDUJAR MD 05/31/18 1502 Date Regan Andujar MD CC: Donita Toscano MD; Taylor Alvarenga MD; Massiel Puente MD Signed DISCHARGE INSTRUCTION Observed: 05/30/2018 Status: F Source: RYAN 4:16 PM [facility] REPOSITORY [facility] Medical Records Department [address] [place] [address] Instructions for Home/Discharge Instructions 05/30/18 1613 MR#: [id number] Acct: [id number] Name: JUN JOHNSON Rep #: [id number] : 1940 78 From: Massiel Puente MD [...] PRN Reason: Pain Primary Care Physician: Taylor Alavrenga MD [Primary Care Provider] - Test Results: Test results from this visit will be discussed in further detail at your follow-up appointment, if applicable. Please Follow Up With: Massiel Puente MD - call [phone] with any concerns after 5PM/weekend When: call office [phone] for f/u in 1 week Please Follow Up With: Irma Arredondo DO Proposed Discharge Date: 05/30/18 05/30/18 1616 <Electronically signed by Massiel Puente MD> Date Massiel Puente MD CC: Donita Toscano MD; Taylor Alvarenga MD; Irma Arredondo DO DISCHARGE SUMMARY Observed: 05/30/2018 Status: F Source: BENNETT 3:09 PM [facility] REPOSITORY [facility] Medical Records Department [address] [place] [address] [place] [address] Discharge Summary 05/27/18 1609 MR#: [id number] Acct: [id number] Name: JUN JOHNSON Rep #: [id number] : 1940 78 From: Massiel Puente MD PCP: Taylor Alvarenga MD Status: ADM IN Y Location: [place] [id number] ADDENDUM by Massiel Puente MD on 05/30/18 [...] Puente MD - After 5 PM/weekends call [phone] with any questions or concerns When: Call the office [phone] for a f/u appt in 1 wk [...] applicable Code Visit Inpatient E AND M: 89952 Disch Hosp 05/30/18 1508 <Electronically signed by Massiel Puente MD> Date Massiel Puente MD Cosigner Signature (if applicable): Date CC: Taylor Alvarenga MD; Massiel Puente MD Signed BEDSIDE GLUCOSE Collected: 05/30/2018 Status: F Source: RYAN 11:57 AM [facility] REPOSITORY TYPE CODE TESTS RESULT OUT OF REFERENCE UNITS RANGE LAB L501.080 70-110 mg/dL High BEDSIDE GLU 292 Result Comment: MANAGEMENT OF PATIENT CARE PER NURSING PROTOCOL Performed By: #### L501.080 #### [facility] Point of Care [address] [place] [address] CONSULTATION Observed: 05/30/2018 Status: F Source: RYAN 7:45 AM [facility] REPOSITORY [facility] Medical Records Department [address] [place] [address] Consultation 05/28/18 1659 MR#: [id number] Acct: [id number] Name: JUN JOHNSON Iliana Rep #: [id number] : 1940 78 From: Irma Arredondo DO PCP: Taylor Alvarenga MD Status: ADM IN Y Location: [facility] [id number] Consultation - Renal 05/28/18 PCP/ Referring MD: [...] and neurology was consulted. She transferred from [facility] to telemetry floor. She was treated [...] mg Allopurinol (Zyloprim) 100 mg PO DAILY [facility] Last Admin: 05/28/18 10:06 Dose: 100 mg Amlodipine Besylate (Norvasc) 5 mg PO DAILY [facility] Last Admin: 05/28/18 10:06 Dose: 5 mg Atenolol (Tenormin (Beta Marilyn)) 100 mg PO DAILY [facility] Last Admin: 05/28/18 10:07 Dose: 100 mg Cholecalciferol (Vitamin D) 1,000 unit PO BID [facility] Last Admin: 05/28/18 10:07 Dose: 1,000 unit Dextrose (D50w Syringe) 0 gm IV X1 PRN; Protocol PRN Reason: Hypoglycemia Last Admin: 05/27/18 02:42 Dose: 12.5 gm Glucagon () 1 mg IM .X1 PRN PRN Reason: Hypoglycemia Hydralazine HCl (Apresoline Iv) 5 mg IV Q6H PRN PRN PRN Reason: BLOOD PRESSURE Sodium Bicarbonate 150 meq/ (Dextrose) 1,150 mls @ 75 mls/hr IV .[id number] [facility] Last Admin: 05/28/18 10:09 Dose: 75 mls/hr Sodium Chloride () 1,000 mls @ 50 mls/hr IV .Q20H [facility] Last Admin: 05/28/18 16:07 Dose: Not Given Insulin Human Lispro (Humalog Kwikpen (Bkc)) 0 unit SQ ACHS CEIRRA PRN Reason: Protocol Last Admin: 05/28/18 16:14 Dose: 2 u Morphine Sulfate () 0.5 - 1 mg IV Q3H PRN PRN PRN Reason: SEVERE PAIN (6-10/10) Nutritional Formula (Lactose Free) (Ensure Enlive) 120 ml PO 4X/DAY [facility] Last Admin: 05/28/18 12:42 Dose: 120 ml Ondansetron HCl (Zofran) 4 mg IV Q8H PRN PRN PRN Reason: NAUSEA Pantoprazole Sodium (Protonix) 40 mg PO DAILY [facility] Last Admin: 05/28/18 10:07 Dose: 40 [...] 05/30/2018 Status: F Source: RYAN 6:38 AM [facility] REPOSITORY TYPE CODE TESTS RESULT OUT OF REFERENCE UNITS RANGE LAB L501.080 70-110 mg/dL High BEDSIDE GLU 348 Result Comment: MANAGEMENT OF PATIENT CARE PER NURSING PROTOCOL Performed By: #### L501.080 #### [facility] Point [place] [address] LIVER PROFILE Collected: 05/30/2018 Status: F Source: RYAN 6:20 AM [facility] REPOSITORY TYPE CODE TESTS RESULT OUT [...] 0.44 Performed By: #### L500.3400, L500.3600 #### [facility] [address] [place], [address] RENAL PROFILE Collected: 05/30/2018 Status: F Source: BENNETT 6:20 AM [facility] REPOSITORY TYPE CODE TESTS RESULT OUT [...] 20.0 Performed By: #### L500.3400, L500.3600 #### [facility] [address] [place], [address] BEDSIDE GLUCOSE Collected: 05/30/2018 Status: F Source: RYAN 3:31 AM [facility] REPOSITORY TYPE CODE TESTS RESULT OUT OF REFERENCE UNITS RANGE LAB L501.080 70-110 mg/dL High BEDSIDE GLU 330 Result Comment: MANAGEMENT OF PATIENT CARE PER NURSING PROTOCOL Performed By: #### L501.080 #### [facility] Point of Care [address] [place] [address] BEDSIDE GLUCOSE Collected: 05/30/2018 Status: F Source: BENNETT 12:07 AM [facility] REPOSITORY TYPE CODE TESTS RESULT OUT OF REFERENCE UNITS RANGE LAB L501.080 70-110 mg/dL High BEDSIDE GLU 427 Result Comment: MANAGEMENT OF PATIENT CARE PER NURSING PROTOCOL Performed By: #### L501.080 #### [facility] Point of Care [address] [place] [address] BEDSIDE GLUCOSE Collected: 05/29/2018 Status: F Source: RYAN 10:42 PM [facility] REPOSITORY TYPE CODE TESTS RESULT OUT OF REFERENCE UNITS RANGE LAB L501.080 70-110 mg/dL High alert BEDSIDE GLU 459 Result Comment: Dr Orders Followed MANAGEMENT OF PATIENT CARE PER NURSING PROTOCOL Performed By: #### L501.080 #### [facility] Point of Care [address] [place] [address] BEDSIDE GLUCOSE Collected: 05/29/2018 Status: F Source: RYAN 9:23 PM [facility] REPOSITORY TYPE CODE TESTS RESULT OUT OF REFERENCE UNITS RANGE LAB L501.080 70-110 mg/dL High alert BEDSIDE GLU 492 Result Comment: MANAGEMENT OF PATIENT CARE PER NURSING PROTOCOL Performed By: #### L501.080 #### [facility] Point of Care [address] [place] [address] BEDSIDE GLUCOSE Collected: 05/29/2018 Status: F Source: RYAN 9:20 PM [facility] REPOSIT[facility] TYPE CODE TESTS RESULT OUT OF REFERENCE UNITS RANGE LAB L501.080 70-110 mg/dL High alert BEDSIDE GLU 492 Result Comment: Repeat Test MANAGEMENT OF PATIENT CARE PER NURSING PROTOCOL Performed By: #### L501.080 #### [facility] Point of Care [address] [place] [address] BEDSIDE GLUCOSE Collected: 05/29/2018 Status: F Source: RYAN 4:16 PM [facility] REPOSIT[facility] TYPE CODE TESTS RESULT OUT OF REFERENCE UNITS RANGE LAB L501.080 70-110 mg/dL High BEDSIDE GLU 426 Result Comment: MANAGEMENT OF PATIENT CARE PER NURSING PROTOCOL Performed By: #### L501.080 #### [facility] Point of Care [address] [place] [address] BEDSIDE GLUCOSE Collected: 05/29/2018 Status: F Source: RYAN 11:31 AM [facility] REPOSIT[facility] TYPE CODE TESTS RESULT OUT OF REFERENCE UNITS RANGE LAB L501.080 70-110 mg/dL High BEDSIDE GLU 378 Result Comment: MANAGEMENT OF PATIENT CARE PER NURSING PROTOCOL Performed By: #### L501.080 #### [facility] Point of Care [address] [place] [address] BEDSIDE GLUCOSE Collected: 05/29/2018 Status: F Source: RYAN 6:42 AM [facility] REPOSITORY TYPE CODE TESTS RESULT OUT OF REFERENCE UNITS RANGE LAB L501.080 70-110 mg/dL High BEDSIDE GLU 194 Result Comment: MANAGEMENT OF PATIENT CARE PER NURSING PROTOCOL Performed By: #### L501.080 #### [facility] Point of Care [address] [place] [address] CBC W/DIFF, AUTOMATED Collected: 05/29/2018 Status: F Source: RYAN 5:45 AM [facility] REPOSITORY TYPE CODE TESTS RESULT OUT [...] Lymph 1.35 Performed By: #### L100.0100 #### [facility] [address] [place], [place], [address] RENAL PROFILE Collected: 05/29/2018 Status: F Source: BENNETT 5:45 AM [facility] REPOSITORY TYPE CODE TESTS RESULT OUT [...] CO2 18.0 Performed By: #### L500.3600 #### [facility] [address] BEDSIDE GLUCOSE Collected: 05/28/2018 Status: F Source: BENNETT 9:33 PM [facility] REPOSITORY TYPE CODE TESTS RESULT OUT OF REFERENCE UNITS RANGE LAB L501.080 70-110 mg/dL High BEDSIDE GLU 269 Result Comment: MANAGEMENT OF PATIENT CARE PER NURSING PROTOCOL Performed By: #### L501.080 #### [facility] Point of Care [address] [address] BEDSIDE GLUCOSE Collected: 05/28/2018 Status: F Source: BENNETT 4:13 PM [facility] REPOSITORY TYPE CODE TESTS RESULT OUT OF REFERENCE UNITS RANGE LAB L501.080 70-110 mg/dL High BEDSIDE GLU 297 Result Comment: MANAGEMENT OF PATIENT CARE PER NURSING PROTOCOL Performed By: #### L501.080 #### [facility] Point of Care [address] [facility] [place] [address] BASIC METABOLIC Collected: 05/28/2018 Status: F Source: BENNETT PROFILE (BMP) 11:45 AM [facility] REPOSITORY TYPE CODE TESTS RESULT OUT [...] GAP 12 Performed By: #### L500.2500 #### [facility] [address] [place], [place], [address] BRAIN WITHOUT Observed: 05/28/2018 Status: F Source: RYAN CONTRAST 9:48 AM [facility] REPOSITORY [facility] Imaging Services [address] [place] [address] Brain without Contrast MR#: [id number] Acct: [id number] Name: JUN JOHNSON Rep #: [id number] : 1940 F 78 From: Chris Waldron DO PCP: Taylor Alvarenga MD Status: ADM ZEINA Study: Brain without Contrast Date of Exam: 05/28/18 Exam# [id number] Ordering Dr: Donita Toscano MD STUDY: MRI [...] CC: Donita Toscano MD; Taylor Alvarenga MD Director Of Industrial Relations: Signed BRAIN/HEAD WITHOUT Observed: 05/28/2018 Status: F Source: BENNETT CONTRAST 9:00 AM [facility] REPOSITORY [facility] Imaging Services [address] [place] [address] Brain/Head without Contrast MR#: [id number] Acct: [id number] Name: JUN JOHNSON Rep #: [id number] : 1940 F 78 From: Ruben Bell PCP: Taylor Alvarenga MD Status: ADM ZEINA Study: Brain/Head without Contrast Date of Exam: 05/28/18 Exam# [id number] Ordering Dr: Donita Toscano MD STUDY: CT [...] CC: Donita Toscano MD; Taylor Alvarenga MD Director Of Industrial Relations: Signed BEDSIDE GLUCOSE Collected: 05/28/2018 Status: F Source: RYAN 8:56 AM [facility] REPOSITORY TYPE CODE TESTS RESULT OUT OF REFERENCE UNITS RANGE LAB L501.080 70-110 mg/dL High BEDSIDE GLU 154 Result Comment: MANAGEMENT OF PATIENT CARE PER NURSING PROTOCOL Performed By: #### L501.080 #### [facility] Point of Care [address] [place] [address] BEDSIDE GLUCOSE Collected: 05/28/2018 Status: F Source: RYAN 6:57 AM [facility] REPOSITORY TYPE CODE TESTS RESULT OUT OF REFERENCE UNITS RANGE LAB L501.080 70-110 mg/dL High BEDSIDE GLU 217 Result Comment: MANAGEMENT OF PATIENT CARE PER NURSING PROTOCOL Performed By: #### L501.080 #### [facility] Point of Care [address] [place], [place] [address] CBC W/DIFF, AUTOMATED Collected: 05/28/2018 Status: F Source: RYAN 6:30 AM [facility] REPOSITORY TYPE CODE TESTS RESULT OUT [...] Lymph 1.35 Performed By: #### L100.0100 #### [facility] [address] [place], [address] COMPREHENSIVE METABOLIC Collected: 05/28/2018 Status: F Source: [facility] 6:30 AM [facility] REPOSITORY TYPE CODE TESTS RESULT OUT [...] GAP 12 Performed By: #### L500.4050 #### [facility] [address] [facility] [facility] [id number] BEDSIDE GLUCOSE Collected: 05/27/2018 Status: F Source: BENNETT 9:29 PM [facility] REPOSITORY TYPE CODE TESTS RESULT OUT OF REFERENCE UNITS RANGE LAB L501.080 70-110 mg/dL High BEDSIDE GLU 275 Result Comment: MANAGEMENT OF PATIENT CARE PER NURSING PROTOCOL Performed By: #### L501.080 #### [facility] Point of Care [address] [place] [address] BEDSIDE GLUCOSE Collected: 05/27/2018 Status: F Source: BENNETT 4:16 PM [facility] REPOSITORY TYPE CODE TESTS RESULT OUT OF REFERENCE UNITS RANGE LAB L501.080 70-110 mg/dL High BEDSIDE GLU 171 Result Comment: MANAGEMENT OF PATIENT CARE PER NURSING PROTOCOL Performed By: #### L501.080 #### [facility] Point of Care [address] [place], [place] [address] OPERATIVE REPORT Observed: 05/27/2018 Status: F Source: RYAN 4:08 PM [facility] REPOSITORY [facility] Medical Records Department [address] [place] [address] Operative Report 05/27/18 1421 MR#: [id number] Acct: [id number] Name: JUN JOHNSON Rep #: [id number] : 1940 78 From: Massiel Puente MD PCP: Taylor Alvarenga MD Status: ADM ZEINA Y Location: [address] Report of Operation Date of Procedure: 05/27/18 Pre-Operative Diagnosis: Acute cholecystitis, cholelithiasis, elevated liver function Post-Operative Diagnosis: Acute cholecystitis, cholelithiasis, abdominal ascites, fibrosis of the liver Surgery/Procedure Performed:: Laparoscopic cholecystectomy with cholangiograms, wedge biopsy liver. case planner: Ramos Saxena Type of Anesthesia:: General/Supplemental Anesthesiologist: [...] 12 mm trocar was closed with a usfycn-us-clsmc 0 Vicryl suture. The skin was closed [...] 05/27/2018 Status: F Source: RYAN 2:42 PM [facility] REPOSITORY TYPE CODE TESTS RESULT OUT OF REFERENCE UNITS RANGE LAB L501.080 70-110 mg/dL High BEDSIDE GLU 159 Result Comment: MANAGEMENT OF PATIENT CARE PER NURSING PROTOCOL Performed By: #### L501.080 #### [facility] Point of Care [address] [place] [address] GALLBLADDER Observed: 05/27/2018 Status: F Source: RYAN 11:05 AM [facility] REPOSITORY Patient: JUN JOHNSON : 1940 (78/F) Acct Num: [id number] Phys: Kwame BRYSON,Massiel Unit Num: [id number] Loc: PCU [id number] Specimen: [id number] Received: 05/27/18 - 8 Spec Type: GALLBLADDE [...] thickness and is free of mass lesions. Order Control Clerk Blood Bank sections of the gallbladder and the cystic duct are submitted in one cassette. B - Received in fixative is one container labeled with the patient's name and designated wedge liver biopsy. The specimen consists of an irregular fragment of negron tissue measuring 1.2 x 0.5 x 0.2 cm. The specimen is submitted in its entirety in one cassette. / AM: 05/30/18 TC:3 CPT: 90718, 38985, 37245 x5 HEADER OPERATION: Laparoscopic cholecystectomy with IOC [...] (modified [place]ell system). AM: 05/31/18 Signed [facility] 05/31/18 <signature on file> Performed By: #### PGALL #### [facility] [address] [place], [address] BEDSIDE GLUCOSE Collected: 05/27/2018 Status: F Source: BENNETT 10:15 AM [facility] REPOSITORY TYPE CODE TESTS RESULT OUT OF REFERENCE UNITS RANGE LAB L501.080 70-110 mg/dL High BEDSIDE GLU 127 Result Comment: MANAGEMENT OF PATIENT CARE PER NURSING PROTOCOL Performed By: #### L501.080 #### [facility] Point of Care [address] [place] [address] BEDSIDE GLUCOSE Collected: 05/27/2018 Status: F Source: RYAN 9:16 AM [facility] REPOSITORY TYPE CODE TESTS RESULT OUT OF RANGE REFERENCE UNITS LAB L501.080 70-110 mg/dL Normal BEDSIDE GLU 106 Result Comment: MANAGEMENT OF PATIENT CARE PER NURSING PROTOCOL Performed By: #### L501.080 #### [facility] Point of Care [address] [place] [address] BEDSIDE GLUCOSE Collected: 05/27/2018 Status: F Source: RYAN 8:07 AM [facility] REPOSITORY TYPE CODE TESTS RESULT OUT OF RANGE REFERENCE UNITS LAB L501.080 70-110 mg/dL Normal BEDSIDE GLU 87 Result Comment: MANAGEMENT OF PATIENT CARE PER NURSING PROTOCOL Performed By: #### L501.080 #### [facility] Point of Care [address] [place] [address] BEDSIDE GLUCOSE Collected: 05/27/2018 Status: F Source: RYAN 6:56 AM [facility] REPOSITORY TYPE CODE TESTS RESULT OUT OF RANGE REFERENCE UNITS LAB L501.080 70-110 mg/dL Normal BEDSIDE GLU 86 Result Comment: MANAGEMENT OF PATIENT CARE PER NURSING PROTOCOL Performed By: #### L501.080 #### [facility] Point of Care [address] [place] [address] BEDSIDE GLUCOSE Collected: 05/27/2018 Status: F Source: RYAN 6:01 AM [facility] REPOSITORY TYPE CODE TESTS RESULT OUT OF RANGE REFERENCE UNITS LAB L501.080 70-110 mg/dL Normal BEDSIDE GLU 88 Result Comment: MANAGEMENT OF PATIENT CARE PER NURSING PROTOCOL Performed By: #### L501.080 #### [facility] Point of Care [address] [place] [address] CBC W/DIFF, AUTOMATED Collected: 05/27/2018 Status: F Source: RYAN 5:32 AM [facility] REPOSITORY TYPE CODE TESTS RESULT OUT [...] Lymph 2.19 Performed By: #### L100.0100 #### [facility] [address] [place], [place], [address] BASIC METABOLIC Collected: 05/27/2018 Status: F Source: RYAN PROFILE ([facility]) 5:32 AM [facility] REPOSITORY TYPE CODE TESTS RESULT OUT [...] Performed By: #### L500.2500, L500.3400, L501.2450 #### [facility] [address] [facility] [place], [place], [address] LIVER PROFILE Collected: 05/27/2018 Status: F Source: BENNETT 5:32 AM [facility] REPOSITORY TYPE CODE TESTS RESULT OUT [...] Performed By: #### L500.2500, L500.3400, L501.2450 #### [facility] [address] [facility] [place], [address] LIPASE Collected: 05/27/2018 Status: F Source: BENNETT 5:32 AM [facility] REPOSITORY TYPE CODE TESTS RESULT OUT OF REFERENCE UNITS RANGE LAB L501.2450 73-393 U/L High LIPASE 655 Performed By: #### L500.2500, L500.3400, L501.2450 #### [facility] [address] [place], [address] MAGNESIUM Collected: 05/27/2018 Status: F Source: RYAN 5:32 AM [facility] REPOSITORY Order Comment: Comments: add to labs TYPE CODE TESTS RESULT OUT OF RANGE REFERENCE UNITS LAB L501.5200 1.6-2.6 mg/dL Normal MG 2.0 Performed By: #### L501.5200 #### [facility] [address] [place], [address] BEDSIDE GLUCOSE Collected: 05/27/2018 Status: F Source: BENNETT 5:09 AM [facility] REPOSITORY TYPE CODE TESTS RESULT OUT OF RANGE REFERENCE UNITS LAB L501.080 70-110 mg/dL Normal BEDSIDE GLU 82 Result Comment: MANAGEMENT OF PATIENT CARE PER NURSING PROTOCOL Performed By: #### L501.080 #### [facility] Point of Care [address] [place] [address] BEDSIDE GLUCOSE Collected: 05/27/2018 Status: F Source: RYAN 3:18 AM [facility] REPOSITORY TYPE CODE TESTS RESULT OUT OF REFERENCE UNITS RANGE LAB L501.080 70-110 mg/dL High BEDSIDE GLU 116 Result Comment: MANAGEMENT OF PATIENT CARE PER NURSING PROTOCOL Performed By: #### L501.080 #### [facility] Point of Care [address] [place] [address] BEDSIDE GLUCOSE Collected: 05/27/2018 Status: F Source: RYAN 2:40 AM [facility] REPOSITORY TYPE CODE TESTS RESULT OUT OF REFERENCE UNITS RANGE LAB L501.080 70-110 mg/dL Low BEDSIDE GLU 56 Result Comment: MANAGEMENT OF PATIENT CARE PER NURSING PROTOCOL Performed By: #### L501.080 #### [facility] Point of Care [address] [place] [address] CHOLANGIOGRAM/ O Observed: 05/27/2018 Status: F Source: RYAN R,INITIAL 12:08 AM [facility] REPOSITORY [facility] Imaging Services [address] [address] Cholangiogram/ O R,Initial MR#: [id number] Acct: [id number] Name: JUN JOHNSON Rep #: [id number] : 1940 F 78 From: Rolando Beauchamp MD PCP: Taylor Alvarenga MD Status: PRE SDC Study: Cholangiogram/ O R,Initial Date of Exam: 05/27/18 Exam# [id number] Ordering Dr: Massiel Puente MD STUDY: INTRAOPERATIVE [...] Rolando Beauchamp MD at 13:59 EDT Tel [phone], Service support , CC: Taylor Alvarenga MD; Massiel Puente MD Director Of Industrial Relations: Signed BEDSIDE GLUCOSE Collected: 05/26/2018 Status: F Source: RYAN 10:26 PM [facility] REPOSITORY TYPE CODE TESTS RESULT OUT OF RANGE REFERENCE UNITS LAB L501.080 70-110 mg/dL Normal BEDSIDE GLU 109 Result Comment: MANAGEMENT OF PATIENT CARE PER NURSING PROTOCOL Performed By: #### L501.080 #### [facility] Point of Care [address] [place] [address] BEDSIDE GLUCOSE Collected: 05/26/2018 Status: F Source: RYAN 9:30 PM [facility] REPOSITORY TYPE CODE TESTS RESULT OUT OF REFERENCE UNITS RANGE LAB L501.080 70-110 mg/dL Low BEDSIDE GLU 69 Result Comment: MANAGEMENT OF PATIENT CARE PER NURSING PROTOCOL Performed By: #### L501.080 #### [facility] Point of Care [address] [place] [address] OSMOLALITY, SERUM Collected: 05/26/2018 Status: F Source: RYAN 5:04 PM [facility] REPOSITORY Order Comment: Comments: as add on test TYPE CODE TESTS RESULT OUT OF RANGE REFERENCE UNITS LAB L501.7300 280-301 mOsm/KG Low 275 OSMOLALITY,S ER Performed By: #### L501.7300 #### [facility] [address] [place], [address] BASIC METABOLIC Collected: 05/26/2018 Status: F Source: RYAN PROFILE (BMP) 5:04 PM [facility] REPOSITORY Order Comment: Comments: aS ADD ON [...] 16 Performed By: #### L500.2500, L503.6030 #### [facility] [address] [place], [address] IRON+IRON BINDING Collected: 05/26/2018 Status: F Source: BENNETT CAPACITY 5:04 PM [facility] REPOSITORY Order Comment: Comments: aS ADD ON TEST TYPE CODE TESTS RESULT OUT OF RANGE REFERENCE UNITS LAB L503.6075 250-450 ug/dL TIBC Normal 306 LAB L503.6150 50-170 ug/dL IRON Normal 69 LAB L503.6250 15.0-55.0 % IRON Normal SATURATION 22.5 Performed By: #### L500.2500, L503.6030 #### [facility] [address] [place], [address] URINE SODIUM Collected: 05/26/2018 Status: F Source: BENNETT 4:50 PM [facility] REPOSITORY TYPE CODE TESTS RESULT OUT OF RANGE REFERENCE UNITS LAB L501.5500 Not Establ. mmol/L Normal UR NA 50 Performed By: #### L501.5500 #### [facility] [address] [facility] [place], [address] BEDSIDE GLUCOSE Collected: 05/26/2018 Status: F Source: BENNETT 4:39 PM [facility] REPOSITORY TYPE CODE TESTS RESULT OUT OF REFERENCE UNITS RANGE LAB L501.080 70-110 mg/dL High BEDSIDE GLU 196 Result Comment: MANAGEMENT OF PATIENT CARE PER NURSING PROTOCOL Performed By: #### L501.080 #### [facility] Point of Care [address] [facility] [place] [address] BEDSIDE GLUCOSE Collected: 05/26/2018 Status: F Source: BENNETT 4:13 PM [facility] REPOSITORY TYPE CODE TESTS RESULT OUT OF REFERENCE UNITS RANGE LAB L501.080 70-110 mg/dL Low BEDSIDE GLU 64 Result Comment: MANAGEMENT OF PATIENT CARE PER NURSING PROTOCOL Performed By: #### L501.080 #### [facility] Point of Care [address] [place], [place] [address] HEMOGLOBIN A1C Collected: 05/26/2018 Status: F Source: BENNETT 1:00 PM [facility] REPOSITORY TYPE CODE TESTS RESULT OUT OF RANGE REFERENCE UNITS LAB L501.9985 4.2-6.3 % Normal HGB A1C 6.2 Performed By: #### L501.9985 #### [facility] [address] [place], [place], [address] CBC W/DIFF, AUTOMATED Collected: 05/26/2018 Status: F Source: BENNETT 1:00 PM [facility] REPOSITORY TYPE CODE TESTS RESULT OUT [...] Lymph 1.68 Performed By: #### L100.0100 #### [facility] [address] [place], [address] BASIC METABOLIC Collected: 05/26/2018 Status: F Source: BENNETT PROFILE (BMP) 1:00 PM [facility] REPOSITORY TYPE CODE TESTS RESULT OUT [...] Performed By: #### L500.2500, L500.3400, L501.2450 #### [facility] [address] [place], [address] LIVER PROFILE Collected: 05/26/2018 Status: F Source: RYAN 1:00 PM [facility] REPOSITORY TYPE CODE TESTS RESULT OUT [...] Performed By: #### L500.2500, L500.3400, L501.2450 #### [facility] [address] [facility] [place], [address] LIPASE Collected: 05/26/2018 Status: F Source: RYAN 1:00 PM [facility] REPOSITORY TYPE CODE TESTS RESULT OUT OF REFERENCE UNITS RANGE LAB L501.2450 73-393 U/L High LIPASE 829 Performed By: #### L500.2500, L500.3400, L501.2450 #### [facility] [address] [facility] [place], [address] BEDSIDE GLUCOSE Collected: 05/26/2018 Status: F Source: RYAN 12:08 PM [facility] REPOSITORY TYPE CODE TESTS RESULT OUT OF REFERENCE UNITS RANGE LAB L501.080 70-110 mg/dL High BEDSIDE GLU 205 Result Comment: MANAGEMENT OF PATIENT CARE PER NURSING PROTOCOL Performed By: #### L501.080 #### [facility] Point of Care [address] [facility] [place] [address] SURGERY VISIT REPORT Observed: 05/26/2018 Status: F Source: RAYN 10:36 AM [facility] REPOSITORY [facility] [address] [place] [address] OFFICE VISIT Date of Service: 05/26/18 MR#: [id number] Acct: [id number] Name: JUN JOHNSON Rep #: [id number] : 1940 Provider: Massiel Puente MD Age/Sex: 78/F Location: 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 Massiel Puente M.D. Pager: [phone] [facility] [address] [place] [address], [address] [place] [address] Office: [phone] Orders Orders: Plan Detail Follow Up will direct admit Coding Level of Care Code Off vis,new,level 4 Diagnoses Cholelithiasis K80.20 Cholecystitis, acute with cholelithiasis K80.00 Acute pancreatitis K85.90 Time Spent (min) 45 05/26/18 1036 <Electronically signed by Massiel Puente MD> Date Massiel Puente MD Cosigner Signature: Date (if applicable) CC: Taylor Alvarenga MD ABDOMEN LIMITED Observed: 05/24/2018 Status: F Source: BENNETT 8:15 AM [facility] REPOSITORY [facility] Imaging Services [address] [place] [address] Abdomen Limited MR#: [id number] Acct: [id number] Name: JUN JOHNSON Rep #: [id number] : 1940 F 78 From: Rolando Beauchamp MD PCP: Taylor Alvarenga MD Status: REG CLI Study: Abdomen Limited Date of Exam: 05/24/18 Exam# [id number] Ordering Dr: Taylor Alvarenga MD STUDY: ABDOMINAL [...] Rolando Beauchamp MD at 15:31 EDT Tel [phone], Service support , CC: Taylor Alvarenga MD Director Of Industrial Relations: Signed CBC W/DIFF, AUTOMATED Collected: 05/23/2018 Status: F Source: RYAN 4:39 PM [facility] REPOSITORY TYPE CODE TESTS RESULT OUT [...] Lymph 1.97 Performed By: #### L100.0100 #### [facility] [address] [place], [address] AMYLASE Collected: 05/23/2018 Status: F Source: RYAN 4:39 PM [facility] REPOSITORY Order Comment: DR CALDERON ADDED A K TYPE CODE TESTS RESULT OUT OF RANGE REFERENCE UNITS LAB L501.2400 25-115 U/L Normal TAYLOR 76 Performed By: #### L501.2400, L501.2450, L501.5600 #### [facility] [address] [place], [address] LIPASE Collected: 05/23/2018 Status: F Source: RYAN 4:39 PM [facility] REPOSITORY Order Comment: DR CALDERON ADDED A K TYPE CODE TESTS RESULT OUT OF REFERENCE UNITS RANGE LAB L501.2450 73-393 U/L High LIPASE 785 Performed By: #### L501.2400, L501.2450, L501.5600 #### [facility] [address] [place], [address] POTASSIUM Collected: 05/23/2018 Status: F Source: RYAN 4:39 PM [facility] REPOSITORY Order Comment: DR CALDERON ADDED A K TYPE CODE TESTS RESULT OUT OF RANGE REFERENCE UNITS LAB L501.5600 3.5-5.1 mmol/L High K 5.2 Performed By: #### L501.2400, L501.2450, L501.5600 #### [facility] [address] [facility] [place], [address] CBC-COMPLETE BLOOD CNT Collected: 05/20/2018 Status: F Source: RYAN NO DIFF 12:41 PM [facility] REPOSITORY TYPE CODE TESTS RESULT OUT [...] MPV 10.3 Performed By: #### L100.0500 #### [facility] [address] [facility] [place], [address] RENAL PROFILE Collected: 05/20/2018 Status: F Source: BENNETT 12:41 PM [facility] REPOSITORY TYPE CODE TESTS RESULT OUT [...] CO2 19.0 Performed By: #### L500.3600 #### [facility] [address] [facility] [place], [address] PTHIN Collected: 05/20/2018 Status: F Source: [facility] 12:41 PM [facility] TYPE CODE TESTS RESULT OUT OF RANGE REFERENCE UNITS LAB L509.1000 18.4-80.1 pg/mL High PTHIN 180.7 Performed By: #### L509.1000 #### [facility] [address] [place], [place], [address] CBC-COMPLETE BLOOD CNT Collected: 03/23/2018 Status: F Source: RYAN NO DIFF 9:47 AM [facility] REPOSITORY TYPE CODE TESTS RESULT OUT [...] MPV 10.8 Performed By: #### L100.0500 #### [facility] [address] [place], [place], [address] RENAL PROFILE Collected: 03/23/2018 Status: F Source: RYAN 9:47 AM [facility] REPOSITORY TYPE CODE TESTS RESULT OUT [...] #### L500.3600, L501.1400, L503.6075, L503.6150, L503.6550 #### [facility] [address] [facility] [place], [place], [address] URIC ACID Collected: 03/23/2018 Status: F Source: BENNETT 9:47 AM [facility] REPOSITORY TYPE CODE TESTS RESULT OUT OF RANGE REFERENCE UNITS LAB L501.1400 2.6-6.0 mg/dL High URIC 7.4 Result Comment: The drugs N-Acetylcysteine and Metamizole may falsely depress this assay. Performed By: #### L500.3600, L501.1400, L503.6075, L503.6150, L503.6550 #### [facility] [address] [place], [place], [address] IRON BINDING Collected: 03/23/2018 Status: F Source: [facility],TOTAL 9:47 AM [facility] REPOSITORY TYPE CODE TESTS RESULT OUT OF RANGE REFERENCE UNITS LAB L503.6075 250-450 ug/dL Normal TIBC 335 Performed By: #### L500.3600, L501.1400, L503.6075, L503.6150, L503.6550 #### [facility] [address] [place], [address] IRON Collected: 03/23/2018 Status: F Source: BENNETT 9:47 AM [facility] REPOSITORY TYPE CODE TESTS RESULT OUT OF RANGE REFERENCE UNITS LAB L503.6150 50-170 ug/dL Normal IRON 110 Performed By: #### L500.3600, L501.1400, L503.6075, L503.6150, L503.6550 #### [facility] [address] [place], [address] FERRITIN Collected: 03/23/2018 Status: F Source: BENNETT 9:47 AM [facility] REPOSITORY TYPE CODE TESTS RESULT OUT OF RANGE REFERENCE UNITS LAB L503.6550 8-252 ng/mL Normal FERRITIN 181 Performed By: #### L500.3600, L501.1400, L503.6075, L503.6150, L503.6550 #### [facility] [address] [place] [address] [place], [address] PTHIN Collected: 03/23/2018 Status: F Source: BENNETT 9:47 AM [facility] REPOSITORY TYPE CODE TESTS RESULT OUT OF RANGE REFERENCE UNITS LAB L509.1000 18.4-80.1 pg/mL High PTHIN 85.5 Performed By: #### L509.1000 #### [facility] [facility] [place], [address] VITAMIN D,25 HYDROXY Collected: 03/23/2018 Status: F Source: BENNETT 9:47 AM [facility] REPOSITORY TYPE CODE TESTS RESULT OUT OF REFERENCE UNITS RANGE LAB L506.1000 29.95-100.01 ng/mL Low Vitamin D 19.5 25-OH Result Comment: Vitamin D 25(OH) Status Range Deficiency <20 ng/mL (50nmol/L) Insuffciency 20 - 30 ng/mL (50 - 75 nmol/L) Sufficiency 30 - 100 ng/mL (75 - 250 nmol/L) Toxicity >100 ng/mL (>250 nmol/L) Performed By: #### L506.1000 #### [facility] [place], [address] PROTEIN+CREATININE Collected: Status: F Source: RYAN RATIO,URINE 03/23/2018 9:47 AM [facility] REPOSITORY TYPE CODE TESTS RESULT OUT OF RANGE REFERENCE UNITS LAB L501.1200 NO RANGE EST. mg/dL Normal UR CREAT 98.60 LAB L501.1930 <11.9 mg/dL High 276.9 PROTEIN,UR.R AN. LAB L501.1940 0-200 mg/g CRE High PROT:CRE 2808 RATIO Performed By: #### L501.0900 #### [facility] [address] [place], [address] BASIC METABOLIC Collected: 12/20/2017 Status: F Source: RYAN PROFILE (BMP) 8:57 AM [facility] REPOSITORY Order Comment: CC RESULTS TO ALMITA [...] GAP 9 Performed By: #### L500.2500 #### [facility] [address] [place], [address] EMERGENCY DEPARTMENT Observed: 12/08/2017 Status: F Source: BENNETT SUMMARY 12:54 AM [facility] REPOSITORY [facility] Medical Records Department [address] [place] [address] Emergency Department Summary 12/07/17 1730 MR#: [id number] Acct: [id number] Name: JUN JOHNSON Rep #: [id number] : 1940 77 From: Paco Reardon MD [...] renal insufficiency. This note was generated with [employer] dictation software. It may contain incorrect words, [...] your Primary Care Provider. Call [facility] ([phone]) or report to the closest Emergency Room. Call 911 if necessary. 12/08/17 0054 <Electronically signed by Paco Reardon MD> Date Paco Reardon MD Cosigner Signature (If Indicated): Date CC: Taylor Alvarenga MD DISCHARGE INSTRUCTION Observed: 12/08/2017 Status: F Source: RYAN 12:54 AM [facility] REPOSITORY [facility] Medical Records Department [address] [place] [address] Discharge Instruction 12/07/17 2147 MR#: [id number] Acct: [id number] Name: JUN JOHNSON Rep #: [id number] : 1940 77 From: Paco Reardon MD PCP: Taylor Alvarenga MD Status: [facility] ER ED Disposition - Plan for ED [...] your Primary Care Provider. Call [facility] ([phone]) or report to the closest Emergency Room. Call 911 if necessary. 12/08/17 0054 <Electronically signed by Paco Reardon MD> Date Paco Reardon MD Cosigner Signature (If Indicated): Date CC: Taylor Alavrenga MD BEDSIDE GLUCOSE Collected: 12/07/2017 Status: F Source: BEN[place]T 8:02 PM [facility] REPOSITORY TYPE CODE TESTS RESULT OUT OF REFERENCE UNITS RANGE LAB L501.080 70-110 mg/dL High BEDSIDE GLU 201 Result Comment: MANAGEMENT OF PATIENT CARE PER NURSING PROTOCOL Performed By: #### L501.080 #### [facility] Point of Care [facility] [place] [address] CBC W/DIFF, AUTOMATED Collected: 12/07/2017 Status: F Source: BENNETT 5:30 PM [facility] REPOSITORY TYPE CODE TESTS RESULT OUT [...] Lymph 2.89 Performed By: #### L100.0100 #### [facility] [address] [place], [place], [address] ACETONE SERUM Collected: 12/07/2017 Status: F Source: BENNETT 5:30 PM [facility] REPOSITORY TYPE CODE TESTS RESULT OUT OF RANGE REFERENCE UNITS LAB L501.6900 NEG Normal ACETONE SERUM NEGATIVE Performed By: #### L501.6900 #### [facility] [address] [place], [address] BASIC METABOLIC Collected: 12/07/2017 Status: F Source: BENNETT PROFILE (BMP) 5:30 PM [facility] REPOSITORY TYPE CODE TESTS RESULT OUT [...] GAP 11 Performed By: #### L500.2500 #### [facility] [address] [facility] [place], [address] BEDSIDE GLUCOSE Collected: 12/07/2017 Status: F Source: BENNETT 5:06 PM [facility] REPOSITORY TYPE CODE TESTS RESULT OUT OF REFERENCE UNITS RANGE LAB L501.080 70-110 mg/dL High BEDSIDE GLU 322 Result Comment: MANAGEMENT OF PATIENT CARE PER NURSING PROTOCOL Performed By: #### L501.080 #### [facility] Point of Care [address] [place] [address] EMERGENCY DEPARTMENT Observed: 12/06/2017 Status: F Source: BENNETT SUMMARY 1:45 AM [facility] REPOSITORY [facility] Medical Records Department [address] [facility] [place] [address] Emergency Department Summary 12/05/17 2244 MR#: [id number] Acct: [id number] Name: JUN JOHNSON Rep #: [id number] : 1940 77 From: Denton Holley MD [...] and she is following up with her chiller operator the day after tomorrow. She is comfortable with this plan. Treatment Plan: Continue medications as prescribed, calling her doctor tomorrow for further management of her medications Disposition: Discharge home Impression: Hyperglycemia due to type 2 diabetes and recent medication changes Chronic kidney disease Accelerated hypertension This note was generated with [employer] software. It may contain incorrect words, spelling, and punctuation that were not noted in review of the chart prior to signing ED Disposition - Plan for ED Patient: Disposition: Home or Assisted Living Chief Complaint: Hyperglycemia Instructions: ED Hyperglycemia Diabetic Referrals: Taylor Alvarenga MD [Primary Care Provider] - (call Dr. Alvarenga and/or your Mgmt Analyst regarding medication management recommendations) What to do if you have Problems For any increased pain, shortness of breath, bleeding, nausea or vomiting, chest pain, or any unexpected problems, contact your Primary Care Provider. Call [facility] ([phone]) or report to the closest Emergency Room. Call 911 if necessary. 12/06/17 0145 <Electronically signed by Denton Holley MD> Date Denton Holley MD Cosigner Signature (If Indicated): Date CC: Taylor Alvarenga MD BEDSIDE GLUCOSE Collected: 12/06/2017 Status: F Source: RYAN 1:28 AM [facility] REPOSITORY TYPE CODE TESTS RESULT OUT OF REFERENCE UNITS RANGE LAB L501.080 70-110 mg/dL High BEDSIDE GLU 265 Result Comment: MANAGEMENT OF PATIENT CARE PER NURSING PROTOCOL Performed By: #### L501.080 #### [facility] Point of Care [address] [place] [address] BEDSIDE GLUCOSE Collected: 12/06/2017 Status: F Source: RYAN 12:23 AM [facility] REPOSITORY TYPE CODE TESTS RESULT OUT OF REFERENCE UNITS RANGE LAB L501.080 70-110 mg/dL High BEDSIDE GLU 351 Result Comment: MANAGEMENT OF PATIENT CARE PER NURSING PROTOCOL Performed By: #### L501.080 #### [facility] Point of Care [address] [place] [address] CHEST PA AND LATERAL Observed: 12/05/2017 Status: F Source: RYAN 10:45 PM [facility] REPOSITORY [facility] Imaging Services [address] [place] [address] Chest PA and Lateral MR#: [id number] Acct: [id number] Name: JUN JOHNSON Rep #: [id number] : 1940 F 77 From: Иван Jarquin MD PCP: Taylor Alvarenga MD Status: REG ER Study: Chest PA and Lateral Date of Exam: 12/05/17 Exam# [id number] Ordering Dr: Denton Holley MD STUDY: X-RAY [...] support , CC: Taylor Alvarenga MD; DENTON HOLLEY MD Director Of Industrial Relations: Signed CBC W/DIFF, AUTOMATED Collected: 12/05/2017 Status: F Source: RYAN 10:40 PM [facility] REPOSITORY TYPE CODE TESTS RESULT OUT [...] Lymph 2.34 Performed By: #### L100.0100 #### [facility] [address] [place], [place], [address] BASIC METABOLIC Collected: 12/05/2017 Status: F Source: BENNETT PROFILE ([facility]) 10:40 PM [facility] REPOSITORY Order Comment: 'TROP' Serial specimen #1, [...] 15 Performed By: #### L500.2500, L501.4010 #### [facility] [address] [facility] [place], [place], [id number] TROPONIN-I Collected: 12/05/2017 Status: F Source: BENNETT 10:40 PM [facility] REPOSITORY Order Comment: 'TROP' Serial specimen #1, #2, #3, or #4: 1 TYPE CODE TESTS RESULT OUT OF RANGE REFERENCE UNITS LAB L501.4010 <0.06 ng/mL Normal < 0.02 TROPONIN-I Result Comment: TROPONIN-I EXPECTED VALUES <0.05 NEGATIVE 0.06 - 0.59 AT RISK OF CO > OR = 0.60 SUGGEST CO Performed By: #### L500.2500, L501.4010 #### [facility] [address] [place], [place], [id number] BEDSIDE GLUCOSE Collected: 12/05/2017 Status: F Source: BENNETT 10:31 PM [facility] REPOSITORY TYPE CODE TESTS RESULT OUT OF REFERENCE UNITS RANGE LAB L501.080 70-110 mg/dL High alert BEDSIDE GLU > 500 Result Comment: Dr Orders Followed MANAGEMENT OF PATIENT CARE PER NURSING PROTOCOL Performed By: #### L501.080 #### [facility] Point of Care [address] [place] [address] URINALYSIS, COMPLETE Collected: 12/05/2017 Status: F Source: RYAN 10:20 PM [facility] REPOSITORY Order Comment: How was Urine Obtained? [...] URINE SEEN Performed By: #### L400.0001 #### [facility] [address] [place], [address] BASIC METABOLIC Collected: 12/03/2017 Status: F Source: RYAN PROFILE (BMP) 9:00 AM [facility] REPOSITORY TYPE CODE TESTS RESULT OUT [...] GAP 11 Performed By: #### L500.2500 #### [facility] [address] [place] [address]. [place], [place], [address] ANTINUCLEAR ANTIBODY, Collected: 12/03/2017 Status: F Source: [place] IFA 9:00 AM [facility] REPOSITORY TYPE CODE TESTS RESULT OUT OF RANGE REFERENCE UNITS LAB L3100.8000 . Normal AIDA Negative test Result Comment: Negative <1:80 Borderline 1:80 Positive >1:80 Performed at: [facility] [id number] Him Specialist: Eddy Feliciano PhD, Phone: [phone] Performed By: #### L3100.7950 #### [facility] (refer to report for specific site) refer to report for address and phone number CBC-COMPLETE BLOOD CNT Collected: 11/24/2017 Status: F Source: [place]EN[place] NO DIFF 9:57 AM [facility] REPOSITORY TYPE CODE TESTS RESULT OUT [...] MPV 9.7 Performed By: #### L100.0500 #### [facility] [address] [place], [address] RENAL PROFILE Collected: 11/24/2017 Status: F Source: BENNETT 9:57 AM [facility] REPOSITORY TYPE CODE TESTS RESULT OUT [...] 24.0 Performed By: #### L500.3600, L501.1400 #### [facility] [address] [place], [place], [address] URIC ACID Collected: 11/24/2017 Status: F Source: BENNETT 9:57 AM [facility] REPOSITORY TYPE CODE TESTS RESULT OUT OF RANGE REFERENCE UNITS LAB L501.1400 2.6-6.0 mg/dL High URIC 8.7 Result Comment: The drugs N-Acetylcysteine and Metamizole may falsely depress this assay. Performed By: #### L500.3600, L501.1400 #### [facility] [address] [place], [place], [address] ANTINUCLEAR ANTIBODIES Collected: 11/24/2017 Status: F Source: [place] DIRECT 9:57 AM [facility] REPOSITORY TYPE CODE TESTS RESULT OUT [...] IMMUNOFIXATION URINE Collected: 11/24/2017 Status: F Source: BENNETT 9:57 AM [facility] REPOSITORY TYPE CODE TESTS RESULT OUT OF RANGE REFERENCE UNITS LAB L3600.4030 . Normal MARVEL Urine Comment Result Comment: No monoclonality detected. Performed at: [facility] [address] [id number] Him Specialist: Eddy Feliciano PhD, Phone: [phone] Performed By: #### L3600.4030 #### [facility] (refer to report for specific site) refer to report for address and phone number KIDNEY AND BLADDER Observed: 11/11/2017 Status: F Source: BENNETT 10:47 AM [facility] REPOSITORY [facility] Imaging Services [address] [place] [address] Kidney and Bladder MR#: [id number] Acct: [id number] Name: JUN JOHNSON Rep #: [id number] : 1940 F 77 From: Niesha Lake MD PCP: Taylor Alvarenga MD Status: REG CLI Study: Kidney and Bladder Date of Exam: 11/11/17 Exam# [id number] Ordering Dr: Irma Arredondo DO US Kidney(s) [...] Service support , CC: Taylor Alvarenga MD; Imra Arredondo DO Director Of Industrial Relations: Signed PROTEIN+CREATININE Collected: Status: F Source: RYAN RATIO,URINE 11/09/2017 11:03 AM [facility] REPOSITORY TYPE CODE TESTS RESULT OUT OF RANGE REFERENCE UNITS LAB L501.1200 NO RANGE EST. mg/dL Normal UR CREAT 94.10 LAB L501.1930 <11.9 mg/dL High 433.3 PROTEIN,UR.R AN. LAB L501.1940 0-200 mg/g CRE High PROT:CRE 4605 RATIO Performed By: #### L501.0900 #### [facility] [address] [place], [address] ALLERGIES ALLERGIES DATE TYPE / CODE NAME / CODE REACTION SEVERITY SOURCE 10/24/2018 Drug codeine/[id number] Hives Unknown Ryan Allergy/[id number]( 52(RXNORM) [facility]) Hospital Repository 10/24/2018 Miscellaneous pain medications nausea/vomiti [place] Allergy/[id number]( [facility] SNOMED CT) Hospital Repository ENCOUNTERS ENCOUNTERS ADMIT/DISCHARGE ACCOUNT ADMITTING ENCOUNTER LOCATION SOURCE NUMBER CLASS 10/24/2018/ [id number] Emergency [place] Ryan 9 9 [facility] ing:ED Repository 10/21/2018 [id number] Ambulatory [place] 6 [facility] ing:US Repository 10/18/2018 [id number] Ambulatory [place] 3 [facility] Hospital ing:MTLAB Repository 10/17/2018 [id number] Ambulatory [place] 4 [facility] Hospital ing:MTLAB Repository 09/09/2018 [id number] Ambulatory [place] 0 [facility] Hospital ing:LAB.FUTUR Repository E 08/19/2018 [id number] Ambulatory [place] 2 [facility] Hospital ing:LAB.FUTUR Repository E 08/15/2018 [id number] Ambulatory Ryan Ryan 5 [facility] Hospital ing:LAB.FUTUR Repository E 08/12/2018 [id number] Ambulatory [place] Ryan 6 [facility] Hospital ing:LAB.FUTUR Repository E 08/10/2018 [id number] Ambulatory [place] Ryan 5 [facility] Hospital ing:DC Repository 07/15/2018 [id number] Ambulatory [place] 8 [facility] Hospital ing:MTLAB Repository 07/11/2018 [id number] Ambulatory Ryan [place] 0 [facility] Hospital ing:LAB.FUTUR Repository E 07/08/2018 [id number] Ambulatory Ryan [place] 3 [facility] Hospital ing:MTLAB Repository 07/06/2018 [id number] Ambulatory Ryan [place] 0 [facility] Hospital ing:MFPLAB Repository 06/20/2018 [id number] Ambulatory Ryan Ryan 0 [facility] Hospital ing:LAB.FUTUR Repository E 06/15/2018 [id number] Ambulatory [place] 8 [facility] Hospital ing:LAB Repository 06/10/2018 [id number] Ambulatory Ryan [place] 3 [facility] Hospital ing:LAB.FUTUR Repository E 06/09/2018/ [id number] Ambulatory [place] Ryan 8 7 [facility] Hospital ing:DC Repository 06/08/2018 [id number] Ambulatory [place] Ryan 3 [facility] Hospital ing:LAB Repository 06/07/2018 [id number] Ambulatory Ryan Ryan 5 [facility] ing:PAVLAB Repository 06/07/2018/ [id number] Ambulatory BMSBuilding:B [facility] 8 4 [facility] Repository 06/04/2018/ [id number] Emergency [place] 8 6 [facility] Hospital ing:ED Repository 05/28/2018/ [id number] [facility] [place] 8 6 [place] [facility] ing:PCURoom: Repository [id number]: 1 05/28/2018 [id number] Kwame, Ambulatory BMSBuilding:B Ryan 9 [place] Repository 05/28/2018 [id number] [place], Ambulatory BMSBuilding:B Ryan 0 [place] [facility] Repository 05/28/2018 [id number] Ambulatory [facility]:W [facility] Repository 05/27/2018 [id number] Ambulatory Ryan Ryan 8 [facility] Hospital ing:PAT Repository 05/26/2018 [id number] Robotjulio, Ambulatory BMSBuilding:B Ryan 5 [place] [facility] Repository 05/26/2018 [id number] [place], Ambulatory BMSBuilding:B Ryan 5 [place] [facility] Repository 05/26/2018 [id number] Robotjulio, Ambulatory BMSBuilding:B Ryan 8 [place] Repository 05/26/2018 [id number] [place], Ambulatory BMSBuilding:B [place] 0 [place] Repository 05/26/2018 [id number] [place], Ambulatory BMSBuilding:B Ryan 7 [place] Repository 05/26/2018 [id number] [place], Ambulatory BMSBuilding:B [place] 4 [place] Repository 05/26/2018 [id number] [place], Ambulatory BMSBuilding:B Ryan 1 [place] [facility] Repository 05/26/2018/ [id number] Ambulatory BMSBuilding:B Ryan 8 3 [facility] Repository 05/26/2018 [id number] Ambulatory [facility]MS[facility]:W [facility] 2 [facility] Repository 05/24/2018 [id number] Ambulatory [place] 8 [facility] ing[facility]US Repository 05/23/2018 [id number] Ambulatory Ryan [facility] 0 [facility] ing:MFPLAB Repository 05/23/2018 [id number] Ambulatory [place] Ryan 2 [facility] ing:LAB.FUTUR Repository E 05/20/2018 [id number] Ambulatory [place] 8 [facility] Hospital ing:LAB.FUTUR Repository E 05/05/2018/ [id number] Ambulatory Ryan [place] 8 9 [facility] Hospital ing:DC Repository 04/13/2018/ [id number] Ambulatory [place] Ryan 8 1 [facility] ing:DC Repository 03/24/2018/ [id number] Ambulatory Ryan [place] 8 8 [facility] ing:DC Repository 03/23/2018 [id number] Ambulatory [place] Ryan 3 [facility] Hospital ing:POLAB3 Repository 02/15/2018/ [id number] Ambulatory Ryan Ryan 8 3 [facility] ing:DC Repository 01/26/2018/ [id number] Ambulatory [place] 8 4 [facility] ing:DC Repository 01/17/2018 [id number] Ambulatory Ryan Ryan 4 [facility] ing:LAB.FUTUR Repository E 12/20/2017 [id number] Ambulatory [place] Ryan 4 [facility] ing:LAB.FUTUR Repository E 12/08/2017 [id number] Ambulatory Ryan Ryan 6 [facility] ing:LAB.FUTUR Repository E 12/07/2017/ [id number] Emergency [place] Ryan 8 8 [facility] ing:ED Repository 12/05/2017/ [id number] Emergency Ryan [place] 8 5 [facility] ing:ED Repository 12/03/2017 [id number] Ambulatory Ryan Ryan 1 [facility] ing:LAB.FUTUR Repository E 11/24/2017 [id number] Ambulatory Ryan Ryan 5 [facility] ing:LAB Repository 11/11/2017 [id number] Ambulatory Ryan Ryan 2 [facility] ing:USHP Repository 11/09/2017 [id number] Ambulatory Ryan [place] 6 [facility] ing:POLAB3 Repository PAYERS PAYERS ENCOUNTER GUARANTOR PAYER SUBSCRIBER SOURCE 10/24/2018 JUN A Primary JUN A [place] [id number] [place] Insurance:ANT[place] CLIN[place]olicy [id number] [id number]: (330) Number: Repository [phone] () [id number] Date:7131-73-10GW [address] [place] [address]9828YM: 10/24/2018 Secondary NOT GIVENUNK [place] Insurance:SELF PAY [facility] Number: Effective Repository Date:2018-10-24 10/21/2018 JUN A Primary JUN Barrientos Ryan [id number] [place] Insurance:ANTHEM CLIN[place]OB[place] PPOPolicy [id number] [id number]: (330) Number: Repository [phone] () [id number] Date:7846-34-66UD [address] [place] [address] 07602JX: 10/21/2018 Secondary NOT GIVENUNK Ryan Insurance:SELF PAY [facility] Number: Effective Repository Date:2018-10-18 10/18/2018 JUN A Primary JUN A [place] [id number] [place] Insurance:ANTHEM CLIN[place] PPOPolicy [id number] Hospital 60386Zup: (330) Number: Repository [phone] () [id number] Date:7994-10-54XI [address] [place] [address] 91266UU: 10/18/2018 Secondary NOT GIVENUNK [place] Insurance:SELF PAY [facility] Number: Effective Repository Date:2018-10-18 10/17/2018 JUN A Primary JUN A [place] [id number] [place] Insurance:ANTHEM CLINEDOB: [place] PPOPolicy [id number] Hospital 816[address]Coh: (330) Number: Repository [phone] () [id number] Date:6553-74-34SN [address] [place] [address] 10528LJ: 10/17/2018 Secondary NOT GIVENUNK Ryan Insurance:SELF PAY [facility] Number: Effective Repository Date:2018-09-14 09/09/2018 JUN A Primary JUN A [place] [id number] [place] Insurance:ANTHEM CLIN[place]OB[place] [id number] Hospital 78596Yit: (330) Number: Repository [phone] () [id number] Date:4870-05-10IF [address] [place] [address] 07023EF: 09/09/2018 Secondary NOT GIVENUNK [place] Insurance:SELF PAY [facility] Number: Effective Repository Date:2018-09-05 08/19/2018 JUN A Primary JUN A Ryan [id number] [place] Insurance:ANTHEM CLIN[place]OB[place] [id number] Hospital 713[address]Ywl: (330) Number: Repository [phone] () [id number] Date:7110-84-91TW [address] [place] [address] 52660ZF: 08/19/2018 Secondary NOT GIVENUNK Ryan Insurance:SELF PAY [facility] Number: Effective Repository Date:2018-08-17 08/15/2018 JUN A Primary JUN A [place] [id number] [place] Insurance:ANTHEM CLIN[place] PP[place] [id number] Hospital 72729Nol: (330) Number: Repository [phone] () [id number] Date:9488-44-37XY [address] [place] [address] 15775IQ: 08/15/2018 Secondary NOT GIVENUNK [place] Insurance:SELF PAY [facility] Number: Effective Repository Date:2018-08-15 08/12/2018 JUN A Primary JUN A [place] [id number] [place] Insurance:ANTHEM CLIN[place]OB: [place] [id number] Hospital 60346Fgs: (330) Number: Repository [phone] () [id number] Date:5991-42-25JB [address] [place] [address] 75655ZC: 08/12/2018 Secondary NOT GIVENUNK Ryan Insurance:SELF PAY [facility] Number: Effective Repository Date:2018-08-12 08/10/2018 JUN A Primary JUN A Ryan [id number] [place] Insurance:ANTHEM CLIN[place]OB: [place] [id number] Hospital 46121Kpe: (330) Number: Repository [phone] () [id number] Date:6753-43-60TM [address] [place] [address] 26022DW: 08/10/2018 Secondary NOT GIVENUNK [place] Insurance:SELF PAY [facility] Number: Effective Repository Date:2018-07-04 07/15/2018 JUN A Primary JUN A [place] [id number] [place] Insurance:ANTHEM CLINEDOB: [place] [facility]ICARE [facility] [id number] Hospital [address]652Dvd: (330) Number: Repository [phone] () [id number] Date:4333-62-33SI [address] [place] [address] 03500RS: 07/15/2018 Secondary NOT GIVENUNK [place] Insurance:SELF PAY [facility] Number: Effective Repository Date:2018-07-15 07/11/2018 JUN A Primary JUN A Ryan [id number] [place] Insurance:ANTHEM CLINEDOB[place] PPOP[place]icy [id number] Hospital 79138Ezh: (330) Number: Repository [phone] () [id number] Date:2924-95-46HU [address] [place] [address] 83341JP: 07/11/2018 Secondary NOT GIVENUNK [place] Insurance:SELF PAY [facility] Number: Effective Repository Date:2018-07-11 07/08/2018 JUN A Primary JUN A [place] [id number] [place] Insurance:ANTHEM CLIN[place]OB[place] [id number] Hospital 10515Uqi: (330) Number: Repository [phone] () [id number] Date:0116-15-19RF [address] [place] [address] 95329SP: 07/08/2018 Secondary NOT GIVENUNK Ryan Insurance:SELF PAY [facility] Number: Effective Repository Date:2018-07-08 07/06/2018 JUN A Primary JUN A [place] [id number] [place] Insurance:ANTHEM CLIN[place]OB[place] PP[place] [id number] Hospital 37555Fzd: (330) Number: Repository [phone] () [id number] Date:0408-62-21EM [address] [address]AN: 07/06/2018 Secondary NOT GIVENUNK Ryan Insurance:SELF PAY [facility] Number: Effective Repository Date:2018-07-06 06/20/2018 JUN A Primary JUN A [place] [id number] [place] Insurance:ANTHEM CLIN[place]OB[place] OPolicy [id number] Hospital 49899Cwl: (330) Number: Repository [phone] () [id number] Date:1855-23-42ZM [address] [place] [address] 82798CC: 06/20/2018 Secondary NOT GIVENUNK Ryan Insurance:SELF PAY [facility] Number: Effective Repository Date:2018-06-15 06/15/2018 JUN A Primary JUN A Ryan [id number] [place] Insurance:ANTHEM CLIN[place]OB[place] [employer] [id number] Hospital 87493Yid: (330) Number: Repository [phone] () [id number] Date:2780-59-14OZ [address] [address]SY: 06/15/2018 Secondary NOT GIVENUNK Ryan Insurance:SELF PAY [facility] Number: Effective Repository Date:2018-06-15 06/10/2018 JUN A Primary JUN A [place] [id number] [place] Insurance:ANTHEM CLIN[place]OB: [place] [employer] [id number] Hospital 20916Axe: (330) Number: Repository [phone] () [id number] Date:1858-53-00PQ [address] [place] [address] 31805OZ: 06/10/2018 Secondary NOT GIVENUNK [place] Insurance:SELF PAY [facility] Number: Effective Repository Date:2018-06-10 06/09/2018 JUN A Primary JUN A [place] [id number] [place] Insurance:ANTHEM CLIN[place]OB[place] PPOP[place] [id number] Hospital 20210Rwl: (330) Number: Repository [phone] () [id number] Date:5494-57-49NX [address] [place] [address] 79991YO: 06/09/2018 Secondary NOT GIVENUNK [place] Insurance:SELF PAY [facility] Number: Effective Repository Date:2018-06-04 06/08/2018 JUN A Primary JUN A [place] [id number] [place] Insurance:ANTHEM CLIN[place]OB[place] PP[place] [id number] Hospital 28322Udj: (330) Number: Repository [phone] () [id number] Date:5269-15-40FI [address] [place] [address] 77957TD: 06/08/2018 Secondary NOT GIVENUNK Ryan Insurance:SELF PAY [facility] Number: Effective Repository Date:2018-06-08 06/07/2018 JUN A Primary JUN A [place] [id number] [place] Insurance:ANTHEM CLIN[place]OB[place] PPOP[place]icy [id number] Hospital 40958Ete: (330) Number: Repository [phone] () [id number] Date:0508-48-69VY [address] [place] [address] 22625WJ: 06/07/2018 Secondary NOT GIVENUNK [place] Insurance:SELF PAY [facility] Number: Effective Repository Date:2018-06-07 06/07/2018 JUN A Primary JUN A Ryan [id number] [place] Insurance:ANTHEM CLIN[place]OB[place] [id number] Hospital 30171Zcw: (330) Number: Repository [phone] () [id number] Date:3518-71-18ON [address] [place] [address] 95240OO: 06/07/2018 Secondary NOT GIVENUNK Ryan Insurance:SELF PAY [facility] Number: Effective Repository Date:2018-06-07 06/04/2018 JUN A Primary JUN A Ryan [id number] [place] Insurance:ANTHEM CLINEDOB[facility] [place] [place] PPOPolicy [id number] Hospital 34940Eqx: (330) Number: Repository [phone] () [id number] Date:1994-64-97LX [address] [place] [address] 55333DO: 06/04/2018 Secondary NOT GIVENUNK Ryan Insurance:SELF PAY [facility] Number: Effective Repository Date:2018-06-04 05/28/2018 JUN A Primary JUN A Ryan [id number] [place] Insurance:ANTHEM CLINEDOB: [facility] [place] PPOPolicy [id number] Hospital 26736Ybn: (330) Number: Repository [phone] () [id number] Date:0174-18-98XZ [address] [place] [address] 68884ZT: 05/28/2018 Secondary NOT GIVENUNK Ryan Insurance:SELF PAY [facility] Number: Effective Repository Date:2018-05-26 05/28/2018 JUN A Primary JUN A Ryan [id number] [place] Insurance:ANTHEM CLINEDOB: [facility] [place] PPOPolicy [id number] Hospital 86356Pkk: (330) Number: Repository [phone] () [id number] Date:1211-47-92OW [address] [place] [address] 78708QV: 05/28/2018 Secondary NOT GIVENUNK [place] Insurance:SELF PAY [facility] Number: Effective Repository Date:2018-05-28 05/28/2018 JUN A Primary JNU A Ryan [id number] [place] Insurance:ANTHEM CLIN[place] PPOPolicy [id number] Hospital 34761Ivx: (330) Number: Repository [phone] () [id number] Date:4208-42-33GQ [address] [place] [address] 79945EG: 05/28/2018 Secondary NOT GIVENUNK Ryan Insurance:SELF PAY [facility] Number: Effective Repository Date:2018-05-28 05/28/2018 JUN A Primary JUN A Ryan [id number] [place] Insurance:ANTHEM CLIN[place]OB[place] PPOPolicy [id number] [facility] 12757Yvd: (330) Number: Repository [phone] () [id number] Date:4882-04-62OT [address] [place] [address] 03941KW: 05/28/2018 Secondary NOT GIVENUNK Ryan Insurance:SELF PAY [facility] Number: Effective Repository Date:2018-05-28 05/27/2018 JUN A Primary JUN A Ryan [id number] [place] Insurance:[place] PPOPolicy [id number] Hospital 24657Abu: (330) Number: Repository [phone] () [id number] Date:0179-29-42AC [address] [place] [address] 65699QB: 05/27/2018 Secondary NOT GIVENUNK [place] Insurance:SELF PAY [facility] Number: Effective Repository Date:2018-05-26 05/26/2018 JUN A Primary JUN A [place] [id number] [place] Insurance:[place] CL[place] PPOPolicy [id number] Hospital 56949Cxx: (330) Number: Repository [phone] () [id number] Date:2297-12-07PH [address] [place] [address] 71164GG: 05/26/2018 Secondary NOT GIVENUNK Ryan Insurance:SELF PAY [facility] Number: Effective Repository Date:2018-05-26 05/26/2018 JUN A Primary JUN A Ryan [id number] [place] Insurance:[place] CL[place] PPOPolicy [id number] Hospital 19325Hlh: (330) Number: Repository [phone] () [id number] Date:2453-72-11FB [address] [place] [address] 51905IE: 05/26/2018 Secondary NOT GIVENUNK Ryan Insurance:SELF PAY [facility] Number: Effective Repository Date:2018-05-26 05/26/2018 JUN A Primary JUN A Ryan [id number] [place] Insurance:[place] CL[place] PPOPolicy [id number] Hospital 26245Uge: (330) Number: Repository [phone] () [id number] Date:8005-40-98WW [address] [place] [address] 25959XN: 05/26/2018 Secondary NOT GIVENUNK [place] Insurance:SELF PAY [facility] Number: Effective Repository Date:2018-05-26 05/26/2018 JUN A Primary JUN A [place] [id number] [place] Insurance:ANT[place] CL[place] PPOPolicy [id number] Hospital 14618Qbj: (330) Number: Repository [phone] () [id number] Date:6601-94-29UX [address] [place] [address] 63163MD: 05/26/2018 Secondary NOT GIVENUNK [place] Insurance:SELF PAY [facility] Number: Effective Repository Date:2018-05-26 05/26/2018 JUN A Primary JUN A Ryan [id number] [place] Insurance:[place] CLIN[place] PPOPolicy [id number] Hospital 86589Bhd: (330) Number: Repository [phone] () [id number] Date:0888-85-34TT [address], [place] [address]WY: 05/26/2018 Secondary NOT GIVENUNK [place] Insurance:SELF PAY [facility] Number: Effective Repository Date:2018-05-26 05/26/2018 JUN A Primary JUN A Ryan [id number] [place] Insurance:[place] CLIN[place] PPOPolicy [id number] Hospital 31268Hgp: (330) Number: Repository [phone] () [id number] Date:5095-66-71GK [address] [place] [address] [place] 38216ZX: 05/26/2018 Secondary NOT GIVENUNK [place] Insurance:SELF PAY [facility] Number: Effective Repository Date:2018-05-26 05/26/2018 JUN A Primary JUN A Ryan [id number] [place] Insurance:[place] CLIN[place] PPOPolicy [id number] Hospital 15014Ivk: (330) Number: Repository [phone] () [id number] Date:4809-79-58FH [address] [place] [address] [place] 68256WF: 05/26/2018 Secondary NOT GIVENUNK [place] Insurance:SELF PAY [facility] Number: Effective Repository Date:2018-05-26 05/26/2018 JUN A Primary JUN A Ryan [id number] [place] Insurance:[place] CL[place] PPOPolicy [id number] Hospital 54710Bnd: (330) Number: Repository [phone] () [id number] Date:0375-23-69IL [address] [place] [address] [place] 237[address]QR: 05/26/2018 Secondary NOT GIVENUNK Ryan Insurance:SELF PAY [facility] Number: Effective Repository Date:2018-05-26 05/26/2018 JUN A Primary JUN A Ryan [id number] [place] Insurance:[place] CLIN[place] PPOPolicy [id number] Hospital 54740Ova: (330) Number: Repository [phone] () [id number] Date:7246-27-24SC [address] [place] [address] 03149EX: 05/26/2018 Secondary NOT GIVENUNK [place] Insurance:SELF PAY [facility] Number: Effective Repository Date:2018-05-26 05/24/2018 JUN A Primary JUN A [place] [id number] [place] Insurance:ANT[place] CLIN[id number] [id number]: (330) ADVANTAPolicy Number: Repository [phone] () [id number] Date:4201-81-69CZ [address] [place] [address] 58786LT: 05/24/2018 Secondary NOT GIVENUNK Ryan Insurance:SELF PAY [facility] Number: Effective Repository Date:2018-05-23 05/23/2018 JUN A Primary JUN A [place] [id number] [place] Insurance:[place] CLIN[place] [id number] Hospital 80158Uxb: (330) ADVANTAPolicy Number: Repository [phone] () [id number] Date:4753-60-06EW [address] [place] [address] 11211QB: 05/23/2018 Secondary NOT GIVENUNK Ryan Insurance:SELF PAY [facility] Number: Effective Repository Date:2018-05-23 05/23/2018 JUN A Primary JUN A [place] [id number] [place] Insurance:[place] CLIN[place] [id number] Hospital 90794Ftl: (330) ADVANTAPolicy Number: Repository [phone] () [id number] Date:7166-75-14PM [address] [place] [address] 40180OR: 05/23/2018 Secondary NOT GIVENUNK [place] Insurance:SELF PAY [facility] Number: Effective Repository Date:2018-05-23 05/20/2018 JUN A Primary JUN A [place] [id number] [place] Insurance:[place] CL[place] [id number] Hospital 65784Cwh: (330) ADVANTAPolicy Number: Repository [phone] () [id number] Date:9827-13-01TQ [address] [place] [address] 10044TP: 05/20/2018 Secondary NOT GIVENUNK [place] Insurance:SELF PAY [facility] Number: Effective Repository Date:2018-05-16 05/05/2018 JUN A Primary JUN A Ryan [id number] [place] Insurance:ANT[place] CLIN[place] [id number] Hospital 02832Ujo: (330) ADVANTAPolicy Number: Repository [phone] () [id number] Date:4991-68-27BC [address] [place] [address] 70520GD: 05/05/2018 Secondary NOT GIVENUNK [place] Insurance:SELF PAY [facility] Number: Effective Repository Date:2018-05-04 04/13/2018 JUN A Primary JUN A [place] [id number] [place] Insurance:ANT[place] CL[place] [id number] Hospital 74432Jpm: (330) ADVANTAPolicy Number: Repository [phone] () [id number] Date:5309-34-96YM [address] [place] [address] 29998TC: 04/13/2018 Secondary NOT GIVENUNK Ryan Insurance:SELF PAY [facility] Number: Effective Repository Date:2018-04-03 03/24/2018 JUN A Primary JUN A Ryan [id number] [place] Insurance:ANT[place] CL[place] [id number] Hospital 09687Tje: (330) ADVANTAPolicy Number: Repository [phone] () [id number] Date:4227-81-10PP [address] [place] [address] 57231LV: 03/24/2018 Secondary NOT GIVENUNK Ryan Insurance:SELF PAY [facility] Number: Effective Repository Date:2018-03-04 03/23/2018 JUN A Primary JUN A Ryan [id number] [place] Insurance:ANT[place] CLIN[place] [id number] Hospital 43427Cnj: (330) ADVANTAPolicy Number: Repository [phone] () [id number] Date:8784-50-51JL [address] [place] [address] 71808VY: 03/23/2018 Secondary NOT GIVENUNK [place] Insurance:SELF PAY [facility] Number: Effective Repository Date:2018-02-21 02/15/2018 JUN A Primary JUN A [place] [id number] [place] Insurance:ANTHE[place] CLIN[place]OB[place] [id number] Hospital 94352Mol: (330) ADVANTAPolicy Number: Repository [phone] () [id number] Date:9166-19-94QQ [address] [place] [address] 20041MD: 02/15/2018 Secondary NOT GIVENUNK Ryan Insurance:SELF PAY [facility] Number: Effective Repository Date:2018-02-01 01/26/2018 JUN A Primary JUN A Ryan [id number] [place] Insurance:ANTHE[place] CLIN[place]OB[place] [id number] Hospital 24796Sxz: (330) ADVANTAPolicy Number: Repository [phone] () [id number] Date:2839-09-01CO [address] [place] [address] 16222XR: 01/26/2018 Secondary NOT GIVENUNK Ryan Insurance:SELF PAY [facility] Effective Repository Date:2018-01-04 01/17/2018 JUN A Primary JUN A [place] [id number] [place] Insurance:[place] CLIN[place]OB[place] [id number] Hospital 01987Scp: (330) ADVANTAPolicy Number: Repository [phone] () [id number] Date:7145-42-16TM [address] [place] [address] 14288LM: 01/17/2018 Secondary NOT GIVENUNK Ryan Insurance:SELF PAY [facility] Number: Effective Repository Date:2018-01-17 12/20/2017 JUN A Primary JUN A Ryan [id number] [place] Insurance:ANT[place] CLIN[place] [id number] Hospital 79688Lvj: (330) ADVANTAPolicy Number: Repository [phone] () [id number] Date:1564-89-54ZP [address] [place] [address] 18355GG: 12/20/2017 Secondary NOT GIVENUNK Ryan Insurance:SELF PAY [facility] Number: Effective Repository Date:2017-12-14 12/08/2017 JUN A Primary JUN A Ryan [id number] [place] Insurance:ANT[place] CLIN[place] [id number] Hospital 61572Egn: (330) ADVANTAPolicy Number: Repository [phone] () [id number] Date:5732-31-38AA [address] [place] [address] [place] 13953HH: 12/08/2017 Secondary NOT GIVENUNK [place] Insurance:SELF PAY [facility] Number: Effective Repository Date:2017-12-08 12/07/2017 JUN A Primary JUN A [place] [id number] [place] Insurance:[place] CL[place] [id number] Hospital 31207Rlk: (330) ADVANTAPolicy Number: Repository [phone] () [id number] Date:4898-10-95VI [address] [place] [address] 38777GD: 12/07/2017 Secondary NOT GIVENUNK Ryan Insurance:SELF PAY [facility] Number: Effective Repository Date:2017-12-07 12/05/2017 JUN A Primary JUN A Ryan [id number] [place] Insurance:ANTHE[place] CL[place] [id number] Hospital 91743Cvq: (330) ADVANTAPolicy Number: Repository [phone] () [id number] Date:5418-90-67PE [address] [place] [address] 58895OX: 12/05/2017 Secondary NOT GIVENUNK [place] Insurance:SELF PAY [facility] Number: Effective Repository Date:2017-12-05 12/03/2017 Jun A Primary Jun A [place] [id number] [place] Insurance:ANTHEM ClineDOB[place] [id number] Hospital 52811Imn: (330) ADVANTAPolicy Number: Repository [phone] () [id number] Date:2845-87-76ZL [address] [place] [address] 60816XQ: 12/03/2017 Secondary NOT GIVENUNK [place] Insurance:SELF PAY [facility] Number: Effective Repository Date:2017-12-03 11/24/2017 Jun A Primary Jun A [place] [id number] [place] Insurance:[place] [id number] Hospital 45189Uwu: (330) ADVANTAPolicy Number: Repository [phone] () [id number] Date:1767-90-51YN [address] [place] [address] 20297CC: 11/24/2017 Secondary NOT GIVENUNK Ryan Insurance:SELF PAY [facility] Number: Effective Repository Date:2017-11-10 11/11/2017 Jun Barrientos Primary Jun A Ryan [id number] [place] Insurance:[place] PPOPolicy [id number] [facility] 46999Uki: (330) Number: Repository [phone] () [id number] Date:0235-36-06YF [address] [place] [address] 66726HU: 11/11/2017 Secondary NOT GIVENUNK [place] Insurance:SELF PAY [facility] Number: Effective Repository Date:2017-11-09 11/09/2017 Jun Barrientos Primary Jun Barrientos [place] [id number] [place] Insurance:[place]M ClineDOB[place] PPOPolicy [id number] Hospital 94130Kvf: (330) Number: Repository [phone] () [id number] Date:8289-29-71CA [address] [place] [address] 08735YG: 11/09/2017 Secondary NOT GIVENUNK [place] Insurance:SELF PAY [facility] Number: Effective Repository Date:2017-11-09
== END 2018-10-24 14:13 | disposition home or self-care (01) ==
LOC: ED 13:50
PROVIDERS: Emergency Provider Emergency Medicine; Family Provider Family Medicine; PCP Family Medicine
DX: M79.661 Pain in right lower leg (principal); E11.9 Type 2 diabetes mellitus without complications
CPT/HCPCS: 93971; 99282

== ENCOUNTER → 2018-11-07 12:21 | Outpatient (CLI) | payer MEDICARE, SELFPAY ==
[2018-10-24 12:44] VITALS: BMI 29.2
--- NOTE | 2018-11-07 12:34 | MRI_ITS ---
STUDY: MR CHOLANGIOPANCREATOGRAPHY (MRCP) REASON FOR EXAM: Female, 78 years old. History of fatty infiltration of the liver and dilated common bile duct. TECHNIQUE: Standard MRCP technique was utilized. COMPARISON: None. FINDINGS: Gall Bladder: Gall bladder is surgically absent. Cystic duct: Cystic structures are seen in the region of the cystic duct probably representing dilated cystic duct remnant difficult to be sure on this exam. Intrahepatic ducts: Normal visualized intrahepatic ducts with no demonstrated fixed filling defect, dilation or stricture. Common hepatic duct: Normal with no demonstrated fixed filling defect, dilation or stricture. Common bile duct: Normal with no demonstrated fixed filling defect, dilation or stricture. Pancreatic duct: Normal with no demonstrated fixed filling defect, dilation or stricture. Probable mild ascites.. MRI/MRCP Abdomen without Contrast IMPRESSION: 1. Status post cholecystectomy. 2. Normal in caliber common bile duct without evidence of filling defects or retained stones. 3. Probable mild ascites. Electronically Signed: Javed Clay MD at 8:14 EST Tel , Service support ,
== END ==
PROVIDERS: Family Provider Family Medicine; PCP Family Medicine; Referring Provider Internal Medicine Gastroenterology; Visit Provider Internal Medicine Gastroenterology
DX: K76.0 Fatty (change of) liver, not elsewhere classified (principal); K83.8 Other specified diseases of biliary tract
CPT/HCPCS: 74181

== ENCOUNTER 2018-11-15 06:04 | Inpatient (IN) | payer MEDICARE, SELFPAY ==
[2018-11-15] VITALS (52 sets, daily range): BP systolic 133–175; BP diastolic 55–100; PULSE 79–103; RESP 19–33; TEMP 36.6–38.1; O2SAT 86–99; BMI 32.1; BMI 31.1; BMI 31.2
--- NOTE | 2018-11-15 06:09 | ED.RN ---
CALLED FOR EKG PER RN REQUEST, UNABLE TO PRINT OLD EKGS FOR
--- NOTE | 2018-11-15 06:23 | EKG12_ITS ---
Test Reason : CP Blood Pressure : / mmHG Vent. Rate : 102 BPM Atrial Rate : 102 BPM P-R Int : 148 ms QRS Dur : 122 ms QT Int : 394 ms P-R-T Axes : 012 041 -18 degrees QTc Int : 513 ms Sinus tachycardia Possible Left atrial enlargement Right bundle branch block Marked ST abnormality, possible inferolateral subendocardial injury Abnormal ECG Confirmed by ROCHELLE BRYSON, TONIA ([id number]), food expeditor OPHELIA SIERRA ([id number]) on 11/18/2018 8:18:03 AM Referred By: Eddy Taylor Confirmed By:TONIA BYRD MD
--- NOTE | 2018-11-15 06:23 | RAD_ITS ---
STUDY: X-RAY CHEST REASON FOR EXAM: Female, 78 years old. Chest pain TECHNIQUE: 1 view COMPARISON: December 02, 2017 FINDINGS: There is mild cardiomegaly. There are chronic interstitial changes in both lungs. There is no acute pneumonia or failure and no pleural effusions.. Normal visualized thoracic spine. Normal visualized ribs, clavicles, and shoulders. There is no demonstrated abnormality of the visualized soft tissue structures of the upper abdomen. RAD/Chest 1 View (Portable) IMPRESSION: Mild cardiomegaly with chronic interstitial changes in the lungs. No pleural effusions Electronically Signed: Rubin Irwin MD at 6:44 EST Tel , Service support ,
--- NOTE | 2018-11-15 06:29 | ED.VISSUMM ---
- ER Visit Summary Date of Service: 11/15/18 Chief Complaint: [] Shortness of breath with shortness of breath worse over the last 2 days but is been ongoing for the last week or so. Gradual onset. Worse with activity and laying flat. Saw her family doctor in the office a few days ago and started on Bumex for fluid overload. Over the last month she has had worsening peripheral edema in her lower extremities. She has had this remotely but it seems to be coming back. She does have chronic kidney disease reported stage III. She has hypertension and diabetes. No history of CHF or previous [place]. No previous stress test or heart cath. No previous COPD. She is a non-smoker. She had a cholecystectomy last May. She is being treated for right lower extremity cellulitis on her second round of Keflex. It is healing. She also felt some continuous chest aching over the last 2 days. She thinks is from not being able to breathe. She felt shaky this evening and came in for further evaluation. History of Present Illness: The patient is a 78 F [] Physical Examination: Vital signs reviewed General: Well-nourished well-developed Head: Normocephalic atraumatic Eyes: Pupils equal round and reactive to light extraocular movements intact ENT: TMs clear no hemotympanum no trauma Neck: Nontender full range of motion Cardiovascular: Regular tachycardia with normal rhythm no murmurs normal S1-S2 Respiratory: Mild respiratory distress. Positive crackles in the bases bilateral. Abdomen: Soft nontender nondistended normal bowel sounds no masses Back: Nontender no CVA tenderness Extremities: Nontender. Some bruising on the right lateral calf with what appears to be healing cellulitis. There is just faint pink color to it now. states this is much better. She has 2+ lower extremity edema symmetric in bilateral to the knees. Neuro alert oriented cranial nerves II through XII intact normal strength sensation reflexes Test Results: [] Emergency Department Course and Treatment: [] EKG shows sinus tachycardia right bundle branch block which appears old. She has some very subtle ST changes in lead I. She has some ST depressions V4 through V6 which appear new from previous EKG last summer. IV established and the patient given a dose of Lasix. Given sublingual nitroglycerin and oral aspirin. Chest x-ray obtained. Patient placed on oxygen through facemask as she is breathing through her mouth. Initial initial sats were 86% on room air. Since pulse ox is in the upper to mid 90s on Venti facemask she is breathing through her mouth. Chest x-ray shows interstitial changes CHF. CBC shows a white count of 16.0. Hemoglobin 10.6. Troponin 1.4. Creatinine 2.05 which is at her baseline. BUN is 58. Patient felt much better after sublingual nitroglycerin. Blood pressure has come down as well. Discussed with cardiology Dr. Motta. Given oral Brilinta and subcutaneous Lovenox for her non-ST elevation myocardial infarction. I feel her CHF and fluid on her lungs is from this. She has chronic renal insufficiency and hypoxic respiratory failure also complicating the picture. She will be admitted and further treated as an inpatient here the patient has a leukocytosis of 16.0. However she does not have any signs or symptoms of sepsis otherwise. I think this is likely secondary to her heart attack. I did send 2 blood cultures but presume they will be negative. I will hold on antibiotics at this time. 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 It may contain incorrect words, spelling, and punctuation that were not noted in review of the chart prior to signing ED Disposition - Plan for ED Patient: Referrals: Taylor Alvarenga MD [Primary Care Provider] -
[2018-11-15 06:32] LABS: Absolute Lymphocyte Count 3.32 X10^3/ul (0.83-4.51); Absolute Neutrophil Count 11.4 X10^3/uL (2.0-7.7); Basophil# 0.09 X10^3/uL; Basophil% 0.6 % (0-1); Eosinophil# 0.16 X10^3/uL; Hematocrit 32.6 % (37-47); Hemoglobin 10.6 g/dl (12.0-15.0); Lymphocyte # 3.32 X10^3/ul (4.0); Lymphocyte % 20.8 % (19-41); Mean Corp Hgb Conc 32.5 g/gl (32-36); Mean Corpuscular Hgb 36.3 pg (27.0-32.0); Mean Corpuscular Volume 111.6 fL (81-99); Mean Platelet Vol. 10.2 fl (6.2-12.0); Monocyte# 0.94 X10^3/uL; Monocyte% 5.9 % (0-10); Neutrophil % 71.2 % (47-70); Platelet Count 213 K/mm3 (150-450); RBC Distribution Width CV 14.1 % (11.6-14.6); RBC Distribution Width SD 54.7 fl (35.1-43.9); Red Blood Count 2.92 M/mm3 (4.2-5.4)
[2018-11-15] MEDS: Aspirin 81 MG TAB.CHEW 324 MG PO (06:32)
--- NOTE | 2018-11-15 06:32 | ED.DCSUM_ITS ---
- ER Visit Summary Date of Service: 11/15/18 Chief Complaint: [] Shortness of breath with shortness of breath worse over the last 2 days but is been ongoing for the last week or so. Gradual onset. Worse with activity and laying flat. Saw her family doctor in the office a few days ago and started on Bumex for fluid overload. Over the last month she has had worsening peripheral edema in her lower extremities. She has had this remotely but it seems to be coming back. She does have chronic kidney disease reported stage III. She has hypertension and diabetes. No history of CHF or previous [place]. No previous stress test or heart cath. No previous COPD. She is a non- smoker. She had a cholecystectomy last May. She is being treated for right lower extremity cellulitis on her second round of Keflex. It is healing. She also felt some continuous chest aching over the last 2 days. She thinks is from not being able to breathe. She felt shaky this evening and came in for further evaluation. History of Present Illness: The patient is a 78 F [] Physical Examination: Vital signs reviewed General: Well-nourished well-developed Head: Normocephalic atraumatic Eyes: Pupils equal round and reactive to light extraocular movements intact ENT: TMs clear no hemotympanum no trauma Neck: Nontender full range of motion Cardiovascular: Regular tachycardia with normal rhythm no murmurs normal S1-S2 Respiratory: Mild respiratory distress. Positive crackles in the bases bilater al. Abdomen: Soft nontender nondistended normal bowel sounds no masses Back: Nontender no CVA tenderness Extremities: Nontender. Some bruising on the right lateral calf with what appears to be healing cellulitis. There is just faint pink color to it now. states this is much better. She has 2+ lower extremity edema symmetric in bilateral to the knees. Neuro alert oriented cranial nerves II through XII intact normal strength sensation reflexes Test Results: [] Emergency Department Course and Treatment: [] EKG shows sinus tachycardia right bundle branch block which appears old. She has some very subtle ST changes in lead I. She has some ST depressions V4 through V6 which appear new from previous EKG last summer. IV established and the patient given a dose of Lasix. Given sublingual nitroglycerin and oral aspirin. Chest x-ray obtained. Patient placed on oxygen through facemask as she is breathing through her mouth. Initial initial sats were 86% on room air. Since pulse ox is in the upper to mid 90s on Venti facemask she is breathing through her mouth. Chest x-ray shows interstitial changes CHF. CBC shows a white count of 16.0. Hemoglobin 10.6. Troponin 1.4. Creatinine 2.05 which is at her baseline. BUN is 58. Patient felt much better after sublingual nitroglycerin. Blood pressure has come down as well. Discussed with cardiology Dr. Motta. Given oral Brilinta and subcutaneous Lovenox for her non-ST elevation myocardial infarction. I feel her CHF and fluid on her lungs is from this. She has chronic renal insufficiency and hypoxic respiratory failure also complicating the picture. She will be admitted and further treated as an inpatient here the patient has a leukocytosis of 16.0. However she does not have any signs or symptoms of sepsis otherwise. I think this is likely secondary to her heart attack. I did send 2 blood cultures but presume they will be negative. I will hold on antibiotics at this time. 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 It may contain incorrect words, spelling, and punctuation that were not noted in review of the chart prior to signing ED Disposition - Plan for ED Patient: Referrals: Taylor Alvarenga MD [Primary Care Provider] -
[2018-11-15 06:33] LABS: POSITIVE COUNT NO; POSITIVE DIFFERENTIAL NO; POSITIVE MORPHOLOGY NO
[2018-11-15] MEDS: Furosemide 40 MG/4 ML Vial IV ×2 (06:45→17:39)
--- NOTE | 2018-11-15 06:54 | ED.RN ---
lab called with critical lab results. trop 1.43. Dr. Handley made aware. no new orders at this time
[2018-11-15 06:56] LABS: Anion Gap 16 (5-15); BUN 58 mg/dL (7-18); BUN/Creat Ratio 28.3 RATIO (10-20); Calcium,Total 8.4 mg/dL (8.5-10.1); Chloride 107 mmol/L (98-107); Creatinine, Serum 2.05 mg/dL (0.55-1.02); EST Glomerular Filtration Rate 25 mL/min (>60); Est Glom Filt Rate - Afr Amer 30 mL/min (>60); Estimated Creatinine Clearance 18.47 ml/min; Glucose 211 mg/dL (74-106); Potassium 4.2 mmol/L (3.5-5.1); Sodium Level 139 mmol/L (136-145)
--- NOTE | 2018-11-15 07:13 | HP.PCM_ITS ---
History of Present Illness Date of Admission: 11/15/18 Chief Complaint: chest pain The patient is a 78 year old F with past medical history of hypertension and diabetes as well as rheumatoid arthritis. She was admitted through the ED on 11/15/2018 with a complaint of chest pain for about 4 days with assisted s hortness of breath. She describes chest pain as pressure-like and episodic and had gradually worsened over the last 4 days. She had a stat shortness of breath with worsening orthopnea and PND as well as swelling her lower extremities. Shortness of breath got acutely worse today and so she called the EMS and was brought to the hospital. She denied any assisted fever or chills, cough, abdominal pain, diarrhea vomiting. Seen a PCP a few days prior to admission and was started on Bumex for fluid overload. She had also been managed for cellulitis of the right lower extremity with Keflex. In the ED, she was tachycardic with heart rate around 103. She was also tachypneic, with RR ~ 25. Labs showed troponin of 1.43, initial lactic acid of 3, creatinine of 2.05 which is around her baseline and anion gap of 16. CBC showed white cell count of 16 and hemoglobin of 10.6 as well as platelets of 213. BNP was 2699. Chest x-ray showed mild cardiomegaly with chronic interstitial changes in the lungs with no pleural effusion. EKG showed T wave inversions in the inferior lateral leads concerning for ischemia. Patient was initially very hypoxic with saturation in the 80s and required up to 10 L of oxygen to maintain adequate saturations. She is been admitted to be managed for non-STEMI, acute heart failure of unknown EF and severe sepsis possibly due to cellulitis. [] Past Medical History Past Medical History (Chronic Problems): Chronic Problems (Last Reviewed 06/07/18 @ 14:09 by Heike Pedraza) Hypertension (Chronic) Medical History: Medical History (Last Reviewed 06/07/18 @ 14:09 by Heike Pedraza) Abdominal pain R10.9 Anxiety F41.9 Cholelithiasis K80.20 Constipation K59.00 Diabetes E11.9 Gout M10.9 History of hysterectomy Z90.710 Nausea & vomiting R11.2 Rheumatoid arthritis M06.9 Hypertension I10 Allergies codeine Adverse Reaction (Verified 11/15/18 06:12) Hives pain medications Adverse Reaction (Intermediate, Uncoded 11/15/18 06:12) nausea/vomiting Home Medications: Ambulatory Orders Medication Instructions Recorded Atenolol [Tenormin (beta marilyn)] 100 mg PO DAILY 12/05/17 insulin detemir (U-100) 100 45 unit SC BREAKFAST ml 05/26/18 unit/mL (3 mL) subcutaneous pen insulin lispro (U- 100) 100 15 unit SC TIDCM 05/26/18 unit/mL subcutaneous pen Azathioprine [Imuran] 100 mg PO DAILY@0800 11/15/18 Budesonide [Budesonide EC] 3 mg PO DAILY 11/15/18 Cephalexin [Keflex] 500 mg PO TID 11/15/18 Furosemide [Lasix] 20 mg PO DAILY 11/15/18 Surgical History: cholecystectomy Psychiatric History: No pertinent psych hx PER DIEM RN History: No pertinent PER DIEM RN history Lives: Spouse/ Significant Other Smoking Status: Never smoker Alcohol: None - *Family History Maternal Family History: Family History (Last Reviewed 06/07/18 @ 14:09 by Heike Pedraza) Father Heart disease History Items: No pertinent history Paternal Family History: Family History (Last Reviewed 06/07/18 @ 14:09 by Heike Pedraza) Father Heart disease History Items: No pertinent history Review of Systems Constitutional: Denies: Chills, Fever, Malaise, Weakness, Weight Change Eyes: Denies: Blurred vision HEENT: Denies: Head Aches, Sinus Congestion, Sinus Drainage Cardiovascular: Reports: Chest Pain, Chest Pressure, Chest Tightness, Edema, Orthopnea, Paroxysmal Noc. Dyspnea. Denies: Heaviness, Palpitations Respiratory: Reports: Shortness of Breath, Shortness of breath upon exertion. Denies: Cough, Shortness of breath at rest, Sputum production Gastrointestinal: Denies: Abdominal Pain, Nausea, Vomiting Genitourinary: Denies: Dysuria Musculoskeletal: Denies: Joint Pain, Joint Tenderness Skin: Denies: Rash, Wounds Neurological: Denies: Numbness, Tingling, Focal weakness Psychiatric: Denies: Anxiety, Depression, Homicidal Ideations, Suicidal Id eations Hematologic/ Lymphatic: Denies: Easy Bruising, Easy Bleeding VTE Information - Inpt Only VTE Present on Admission: No VTE Pharm Prophylaxis ordered?: Yes Patient Problems: Active and Suspected Problems (Last Reviewed 06/07/18 @ 14:09 by Heike Pedraza) Acute coronary syndrome (Acute) Non-STEMI (non-ST elevated myocardial infarction) (Acute) Hypercholesterolemia (Acute) Congestive heart failure of unknown etiology (Acute) Abnormal EKG (Acute) - Physical Exam General: Alert, Oriented x3, Cooperative HEENT: Atraumatic, PERRLA, EOMI, Normocephalic Oral: Moist Mucosa Neck: Supple, No JVD, Negative Carotid Bruits Lungs: - - decreased breath sounds bibasally; fine crackles in mid and lower lung zuniga. mild wheezing in all lung zuniga. on 10L of oxygen by nonrebreather mask Cardiovascular: Regular rate, Regular Rhythm, Normal S1, Normal S2, No murmurs Abdomen: Bowel Sounds Present, Soft, Non Tender, Non-Distended, No Hepato- splenomegaly Extremities: - - bilateral LE pitting pedal edema; superficial ulceration of Left LLE Skin: No rashes, No breakdown Musculoskeletal: No Tenderness to Palpation of Joints or Extremities Lymphatic: No Cervical, Supraclavicular, or Inguinal Adenopathy Neurological: Cranial nerves II-XII grossly intact, Neuro grossly intact, Motor Exam 5/5 strength throughout Psych/Mental Status: Normal Affect, Appropriate, Alert and oriented to time, place, person, mood and affect Vital Signs Temp Pulse Resp BP Pulse Ox 98.2 F 96 25 H 152/77 H 97 11/15/18 06:06 11/15/18 06:54 11/15/18 06:54 11/15/18 06:54 11/15/18 06:54 Oxygen Flow Rate (L/min) 10 Oxygen Delivery Method Venturi Mask Weight: 175 lb 11.335 oz Body Mass Index (BMI) 32.1 Finger Stick Blood Glucose 159 Laboratory Tests Past 24 Hrs 11/15/18 11/15/18 11/15/18 06:12 06:12 06:12 WBC 16.0 H RBC 2.92 L Hgb 10.6 L Hct 32.6 L MCV 111.6 H MCH 36.3 H MCHC 32.5 RDW 14.1 RDW Differential 54.7 H Plt Count 213 MPV 10.2 Immature Gran % (Auto) 0.500 Neut % (Auto) 71.2 H Lymph % (Auto) 20.8 Bertie % (Auto) 5.9 Eos % (Auto) 1.0 Baso % (Auto) 0.6 Absolute Neuts (auto) 11.4 H Absolute Lymphs (auto) 3.32 Total Counted Not Reportable Sodium 139 Potassium 4.2 Chloride 107 Carbon Dioxide 16.0 L Anion Gap 16 H BUN 58 H Creatinine 2.05 H Estim Creat Clear Calc 18.47 Est GFR (MDRD) Af Amer 30 L Est GFR (MDRD) Non-Af 25 L BUN/Creatinine Ratio 28.3 H Glucose 211 H Lactic Acid Calcium 8.4 L Troponin I 1.430 H* B-Natriuretic Peptide Pending 11/15/18 06:40 WBC RBC Hgb Hct MCV MCH MCHC RDW RDW Differential Plt Count MPV Immature Gran % (Auto) Neut % (Auto) Lymph % (Auto) Bertie % (Auto) Eos % (Auto) Baso % (Auto) Absolute Neuts (auto) Absolute Lymphs (auto) Total Counted Sodium Potassium Chloride Carbon Dioxide Anion Gap BUN Creatinine Estim Creat Clear Calc Est GFR (MDRD) Af Amer Est GFR (MDRD) Non-Af BUN/Creatinine Ratio Glucose Lactic Acid Pending Calcium Troponin I B-Natriuretic Peptide Diagnostic Data Chest X-Ray 11/15/18 06:23 IMPRESSION: Mild cardiomegaly with chronic interstitial changes in the lungs. No pleural effusions Electronically Signed: Rubin Irwin MD at 6:44 EST Tel , Service support , Assessment/Plan All Active Problems (Last Reviewed 06/07/18 @ 14:09 by Heike Pedraza) Acute coronary syndrome (Acute) Non-STEMI (non-ST elevated myocardial infarction) (Acute) Hypercholesterolemia (Acute) Congestive heart failure of unknown etiology (Acute) Abnormal EKG (Acute) 78-year-old female admitted with a complaint of chest pain and shortness of breath for 4 days. 1. NSTEMI * chest pain ongoing for 4 days with associated orthopnea and PND. * initial troponin was 1.42, EKG showed T wave inversions in inferolateral leads * CXR showed mild cardiomegaly with chornic interstitial changes in lungs with no pleural effusions. * admit to ICU * received one dose of lovenox 80IU once in ED and brilinta as well as aspirin * give aspirin 81mg daily, atorvastatin 40mg daily, and SL nitroglycerin prn * urgent cardiology consult placed * cycle troponins * 2D echo * 2. Acute diastolic heart failure * BNP was >2000. CXR as under 1 * Urgent 2D echo done showed moderate concentric LVH with EF of 50%, stage I diastolic dysfunction and mild hypokinesis of mid anteroseptal and lateral basal pillai. RVSP was 48 mmHg. * received one dose of IV lasix in ED * continue with IV lasix 40mg bid. * 3. Acute hypoxic respiratory failure due to acute diastolic heart failure and NSTEMI * was tachypneic on admission, with saturation int eh 80s * requiring 10L of oxygen in ED by nonrebreather mask to maintain sats >90% * Continue oxygen titrate to maintain saturation more than 92%. * Should improve with diuresis and management of non-STEMI. 4. Severe sepsis possibly due to cellulitis * SIRS criteria 2/4 with tachypnea and leukocytosis. Lactic acid was also elevated at 3. * This could be explained by this allergic reaction to non-STEMI. However patient stated that she had been treated for cellulitis twice over the past few weeks and so this could be a source also. She does have a erythematous superficial ulceration on the lateral aspect of her right leg * Will check urinalysis. Blood cultures obtained in ED. * Start IV vancomycin and Zosyn. Will de-escalate antibiotics as per patient's response and culture results. * 5. CKD 4: * Cr is 2.05, with eGFR of 25, which is around her baseline. * Received 1 dose of Lovenox per ED. * Will hold off on Lovenox for now on account of CKD and start heparin drip in the evening. * 6. Hypertension: on atenolol 100mg daily. Per cardiology, will decrease to 50mg daily in light of acute heart failure 7. Diabetes mellitus: We will check A1c. On insulin glargine 45 units subcu. Insulin sliding scale. Accu-Cheks AC at bedtime. 8. Anion gap metabolic acidosis: Anion gap is 16. Likely due to CKD. This is chronic. Will monitor. DVT prophylaxis: Received 1 dose of Lovenox. We will continue with heparin drip CODE STATUS: Full code * Patient counseled extensively about different types of CODE STATUS including full code, DNR CCA and DNR CCA. Patient elects to be full code. Total [id number] time 17 minutes. Code Visit Inpatient E&M: 96244 Init Hosp L3 Procedures: 97606 Advncd Care Plan 30 Min
--- NOTE | 2018-11-15 07:15 | NURSING ---
DR RADHA VICTOR
--- NOTE | 2018-11-15 07:21 | NURSING ---
[facility]
[2018-11-15] MEDS: TICAGRELOR 90 MG TABLET 180 MG PO (07:27)
--- NOTE | 2018-11-15 07:28 | ED.RN ---
lab called with critical lab results. Lactic acid 3.0. Dr. Jaramillo made aware no new orders at this time
--- NOTE | 2018-11-15 07:28 | NURSING ---
[facility]
[2018-11-15] MEDS: Enoxaparin 80 MG/0.8 ML Syringe SC (07:29)
--- NOTE | 2018-11-15 07:58 | NURSING ---
DR GARCIA AND DR BECKFORD SAW PATIENT
--- NOTE | 2018-11-15 08:27 | ECHOCS_ITS ---
Reason For Study: CHF Procedure This was a 2D Doppler, Color Flow transthoracic echocardiogram. Exam performed portable in ICU/CCU. Left Ventricle Moderate concentric left ventricular hypertrophy. The estimated ejection fraction is 50 %. Stage 1 diastolic dysfunction. Mid-anteroseptal : Mildly hypokinetic. Lateral-Basal: Mildly hypokinetic. Right Ventricle Normal size and thickness. Normal systolic function. Atria The left atrium is moderately enlarged. Normal right atrium. Normal atrial septum. Mitral Valve Mild diffuse mitral valve thickening. Mild (1+) mitral valve insufficiency. Tricuspid Valve Normal tricuspid valve. Mild (1+) tricuspid valve insufficiency. Right ventricular systolic pressure estimated to be 48 mmHg. Moderate pulmonary hypertension. Aortic Valve Trisinus/trileaflet aortic valve. Pulmonic Valve The pulmonic valve is not well visualized. Great Vessels Normal aortic root. Normal arch. Normal inferior vena cava. Inferior vena cava collapse with sniff. Pericardium/Pleural No pericardial effusion. Medication Diluted definity 3ml given slow IV push to enhance endocardial definition. MMode/2D Measurements & Calculations LVIDd: 4.5 cm IVSd: 1.5 cm Ao root diam: 2.8 cm LVIDs: 3.2 cm LVPWd: 1.4 cm RVDd: 3.4 cm FS: 28.3 % LAV(MOD-bp): 81.6 ml LA A4 area: 25.3 cm2 LA dimension(2D): 4.4 cm LAV(MOD-bp) Indexed: 45.2 ml/m2 LAV(MOD-sp2): 83.7 ml LAV(MOD-sp4): 78.9 ml RA A4 area: 16.6 cm2 Doppler Measurements & Calculations MV E max martin: 98.0 cm/sec Lat Peak E' Martin: 7.5 cm/sec Med Peak E' Martin: 5.8 cm/sec MV A max martin: 126.5 cm/sec E/E' lat: 13.1 E/E' med: 17.0 MV E/A: 0.77 Ao V2 max: 150.6 cm/sec LV V1 max: 109.5 cm/sec PA V2 max: 82.7 cm/sec Ao max P.1 mmHg LV V1 max P.8 mmHg TR max martin: 316.2 cm/sec TR max P.3 mmHg Interpretation Summary Moderate concentric left ventricular hypertrophy. The estimated ejection fraction is 50 %. Stage 1 diastolic dysfunction. Mid-anteroseptal : Mildly hypokinetic Lateral-Basal: Mildly hypokinetic The left atrium is moderately enlarged. Mild (1+) mitral valve insufficiency. Mild (1+) tricuspid valve insufficiency. Right ventricular systolic pressure estimated to be 48 mmHg. Moderate pulmonary hypertension. There is no comparison study available. The study was technically difficult. Contrast injection was performed. Ordering Physician: Greyson Motta Referring Physician: Taylor Alvarenga M.D. Performed By: Lisbet Cantu RDCS
--- NOTE | 2018-11-15 09:03 | CON.PCM_ITS ---
Problem List (1) Acute coronary syndrome Status: Acute (2) Non-STEMI (non-ST elevated myocardial infarction) Status: Acute (3) Hypertension Status: Chronic (4) Hypercholesterolemia Status: Acute (5) Congestive heart failure of unknown etiology Status: Acute (6) Abnormal EKG Status: Acute Reason for Consult Date of Consultation: 11/15/18 Reason for Consultation: Chest pain, angina, acute coronary syndrome, non-STEMI, hypertension, diabetes, hypercholesterolemia, new onset congestive heart failure History of Present Illness: The patient is a 78 year old F with a history of hypertension, diabetes, lifelong non-smoker, hypercholesterolemia, chronic renal insufficiency with a creatinine of 2.0 on presentation, no previous known coronary artery disease. Patient states that she was in normal health up until this past fall when she underwent gallbladder surgery with subsequent significant edema but no chest pain or shortness of breath. Patient was placed on diuretic therapy and improved. 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 Patient was doing well up until around 3 days ago when she began developing shortness of breath, orthopnea, PND, and lower extremity edema. This worsened to the point where the patient got substernal chest pain which was nonradiating this morning precipitating a visit to the [facility] ER. At that time she was found to be hypoxic, tachypneic, and tachycardic. Initial EKG showed sinus tachycardia with baseline right bundle branch block, and inferior lateral ST segment depression. The patient was treated with IV Lasix, sublingual nitroglycerin, and antihypertensive medications and her chest pain improved. Her initial troponin was 1.43. Her creatinine clearance is around 18. On further history she denies any previous cardiac evaluation, echocardiogram, stress test, or catheterization. She is currently resting comfortably on a facemask, oxygenating well. Patient is evidence of biventricular failure with crackles bilaterally, as well as 1-2+ bilateral lower extremity edema superimposed on lateral cellulitis of the right lower extremity. Patient was loaded with 4 baby aspirin, Brilinta 180 x 1, and subcu Lovenox adjusted for her renal insufficiency. Echocardiogram is pending. [] Past Medical History Allergies/Adverse Reactions: Allergies codeine Adverse Reaction (Verified 11/15/18 06:12) Hives pain medications Adverse Reaction (Intermediate, Uncoded 11/15/18 06:12) nausea/vomiting Home Medications: Ambulatory Orders Medication Instructions Recorded Atenolol [Tenormin (beta marilyn)] 100 mg PO DAILY 12/05/17 Allopurinol 100 mg PO DAILY 05/26/18 amlodipine 5 mg tablet 5 mg PO DAILY 05/26/18 insulin detemir (U-100) 100 40 unit SC BREAKFAST ml 05/26/18 unit/mL (3 mL) subcutaneous pen insulin lispro (U- 100) 100 15 unit SC TID 05/26/18 unit/mL subcutaneous pen Azathioprine [Imuran] 50 mg PO DAILY@0800 11/15/18 Budesonide [Budesonide EC] 3 mg PO DAILY 11/15/18 Cephalexin [Keflex] 500 mg PO TID 11/15/18 Furosemide [Lasix] 20 mg PO DAILY 11/15/18 Past Medical History (Chronic Problems): Chronic Problems (Last Reviewed 06/07/18 @ 14:09 by Heike Pedraza) Hypertension (Chronic) Surgical History: cholecystectomy Smoking Status: Never smoker Review of Systems - Review of Systems General: Denies: Fever, Night Sweats, Fatigue Cardiovascular: Reports: Chest Discomfort, Chest Discomfort at Rest, Shortness of Breath, Shortness of Breath at Rest, Orthopnea, Peripheral Edema. Denies: PND, Palpitations, Lightheadedness, Dizziness, Near Syncope, Syncope Respiratory: Denies: Cough, Sputum Production, Hemoptysis Gastrointestinal: Denies: Hematemesis, Hematochezia, Melena Genitourinary: Denies: Dysuria, Hematuria Skin: Denies: Rash Subjectve: Patient resting comfortably at an incline of about 30 degrees. Unable to lay down flat due to orthopnea he dynamically stable. Objective: Vital Signs Temp Pulse Resp BP Pulse Ox 97.8 F 95 21 H 150/69 H 99 11/15/18 08:30 11/15/18 08:30 11/15/18 08:30 11/15/18 08:30 11/15/18 08:30 Oxygen Flow Rate (L/min) 10 Oxygen Delivery Method Venturi Mask Weight: 170 lb 6.677 oz Body Mass Index (BMI) 31.1 Finger Stick Blood Glucose 159 General: Awake, Alert, Oriented x 3 HEENT: PERRL, EOMI, Sclera Non Icteric Neck: Supple, Good ROM, No Lymph Node Enlargement Lungs: Clear to auscultation Cardiovascular: Regular Rhythm, Normal S1, Normal S2, No Murmurs, No Rubs, No Gallops Vascular: No Carotid Bruits, Normal Femoral Pulses, Normal Radial Pulses, Normal Dorsalis Pedal Pulse, Normal Posterior Tibial Pulses Abdomen: Bowel Sounds Present, Soft, Non Tender, No HSM, No Organomegaly Extremities: No Cyanosis, No Clubbing, No edema Neurological: No Focal Motor or Sensory Deficit 11/15/18 06:12: WBC 16.0 H, RBC 2.92 L, Hgb 10.6 L, Hct 32.6 L, MCV 111.6 H, MCH 36.3 H, MCHC 32.5, RDW 14.1, RDW Differential 54.7 H, Plt Count 213, MPV 10.2, Immature Gran % (Auto) 0.500, Neut % (Auto) 71.2 H, Lymph % (Auto) 20.8, Pierce % (Auto) 5.9, Eos % (Auto) 1.0, Baso % (Auto) 0.6, Absolute Neuts (auto) 11.4 H, Total Counted Not Reportable 11/15/18 06:12: Sodium 139, Potassium 4.2, Chloride 107, Carbon Dioxide 16.0 L, Anion Gap 16 H, BUN 58 H, Creatinine 2.05 H, Est GFR (MDRD) Af Amer 30 L, Est GFR (MDRD) Non-Af 25 L, BUN/Creatinine Ratio 28.3 H, Glucose 211 H, Calcium 8.4 L, Troponin I 1.430 H* 11/15/18 06:12: B-Natriuretic Peptide 2699.2 H 11/15/18 06:40: Lactic Acid 3.0 H Rhythm: EKG: ECHO:pending Stress Test: Cardiac Cath: PCI: CT Surgery: Holter monitor: EPS: PPM: CXR: Chest CT Scan: Assessment/Plan 1. Congestive heart failure: The patient has signs and symptoms of biventricular congestive heart failure. I recommended continuing O2 therapy via facemask to assist with pulmonary vasodilatation and oxygen delivery until her O2 sats stabilized at 92% on 2 L or room air. In addition I recommend Lasix IV 40 mg twice daily. The patient may have some challenges with IV diuresis given her chronic renal insufficiency and creatinine clearance of below 20. In addition I recommend that she reduce her atenolol down to 50 mg daily while she is stabilizing with congestive heart failure of new onset. Recommend that she undergo a 2D echo with Doppler to document her LV function, pulmonary pressures, and valvular status. In addition she will continue baby aspirin, Plavix. Given her chronic renal insufficiency she is a poor candidate for DEWEY inhibitors or ARB's. Eventually would like to transition her to M Dur/hydralazine for afterload reduction. Unfortunately this point the patient is unable to lay down flat despite oxygen assistance with her facemask, I would recommend diuresing her until the point she is able to lay down flat and has no further orthopnea. At that point, we will then proceed with left heart catheterization to evaluate her coronary anatomy given her congestive heart failure symptoms and non-ST elevation myocardial infarction. Her EKG has concerning signs for possible inferior lateral ischemia which may be contributing to her overall picture. Patient has a number of risk factors for coronary occlusive disease including her age, hypertension, diabetes, chronic renal insufficiency, and hypercholesterolemia. 2. Chronic renal insufficiency: Given the patient's chronic renal insufficiency as she is at high risk for temporary or permanent renal insufficiency from acute tubular necrosis from IV contrast dye exposure. Recommend avoidance of IV contrast dye until she is ready for heart catheterization. 3. Hyperlipidemia: Recommend obtaining a fasting profile. Her LDL should be less than 70 given her diabetes and non-STEMI. 4. Thank you very much for the opportunity to participate in in the cardiac care of your patient. Consultation time took place between 745 and 8:15 AM. Code Visit Inpatient E&M: 40849 Init Hosp L2
[2018-11-15 09:26] LABS: Bedside Glucose 178 mg/dL (70-110)
[2018-11-15 09:49] LABS: Cholesterol 131 mg/dL (200); High Density Lipoprotein 41 mg/dL; Triglycerides 159 mg/dL; Very Low Density Lipoprotein 32 mg/dL (5-40)
[2018-11-15] MEDS: 0.9% NaCl IVPB Med Flush (250 mL) 15 ML IV (10:12)
[2018-11-15] MEDS: Budesonide 3 MG CAPSULE.EC PO (10:13)
[2018-11-15] MEDS: Atenolol 100 MG Tablet PO (10:15)
[2018-11-15] MEDS: azaTHIOprine 50 MG Tablet 100 MG PO (10:20)
[2018-11-15 10:51] LABS: Reflex Lactate? Y
[2018-11-15 11:45] LABS: Lactic Acid 2.6 mmol/L (0.4-2.0)
[2018-11-15] MEDS: Nitroglycerin Oint 1 INCH PACKET TRANSDERM. (11:45)
[2018-11-15] MEDS: Insulin Lispro 100 UNIT/ML INSULN.PEN SQ ×3 (11:47→21:33)
[2018-11-15 12:46] LABS: Bedside Glucose 297 mg/dL (70-110)
--- NOTE | 2018-11-15 13:12 | CASEMGMT ---
RN CM Assessment Presentation: NSTEMI Intro role of CM and purpose of RN CM assessment. PCP: Dr. Alvarenga Specialists: Dr. Motta [facility] Insurance: Davy WATTS Prescription Benefit: yes, pt ordered Plavix in hospital. LNOK: , [place] Arias Living Arrangements: One story home with ramp into home. Pt states she is generally independent with ADL's. is able to assist if needed. Uses walker at home intermittently. Transportation: Pt drives, but can assist. DME: walker, cane (no oxygen use @ home) HHC: none DC PLAN: Anticipate home on dc with family support. Kristen RABAGON RN ACM
--- NOTE | 2018-11-15 13:27 | CASEMGMT ---
DEVIN CM Note Insurance review for [facility] if transfer is recommended. LYDIA YAOF, [facility], [facility], , [facility].
--- NOTE | 2018-11-15 13:37 | PCM.RX.CS ---
Consult Pharmacy has been consulted to manage selected antiobiotic: Vancomycin Type of Consult: New start Suspected Infection: Sepsis, Skin/Soft tissue Labs: Sodium 139 mmol/L (136-145) 11/15/18 06:12 Potassium 4.2 mmol/L (3.5-5.1) 11/15/18 06:12 Chloride 107 mmol/L (98-107) 11/15/18 06:12 Carbon Dioxide 16.0 mmol/L (21.0-32.0) L 11/15/18 06:12 Anion Gap 16 (5-15) H 11/15/18 06:12 BUN 58 mg/dL (7-18) H 11/15/18 06:12 Creatinine 2.05 mg/dL (0.55-1.02) H 11/15/18 06:12 Est GFR (MDRD) Af Amer 30 mL/min (>60) L 11/15/18 06:12 Est GFR (MDRD) Non-Af 25 mL/min (>60) L 11/15/18 06:12 BUN/Creatinine Ratio 28.3 RATIO (10-20) H 11/15/18 06:12 Glucose 211 mg/dL (74-106) H 11/15/18 06:12 Weight used for dosin.3 kg Estimated Creatinine Clearance: 18 ML/MIN Goal Trough: 15-20 mcg/mL Pharmacy Plan for Drug Dosing: Initial dose of 1250mg (15mg/kg standard dose) was given today at 10:12. Since the patient's CrCl is 18 ml/min, the plan is to use the dosing in patients with CrCl < 20ml/min and not on hemodialysis protocol in the Pharmacist-Managed IV Vancomycin Dosing Protocol. A random vancomycin level will be ordered to be drawn 24-48 hours later on 11/17/18 and this will determine the next dose according to the protocol. Pharmacy Service will continue to monitor and adjust dosing as required. Follow-Up Labs: Trough Vancomycin - random level Labs to be done on [date and time ordered]: 11/17/18 06:00
[2018-11-15 14:31] LABS: Lactic Acid 2.2 mmol/L (0.4-2.0)
[2018-11-15] MEDS: Metoprolol Tartrate 5 MG/5 ML Vial 2.5 MG IV (14:41)
[2018-11-15] MEDS: 0.9% NaCl Peripheral Flush Adult/Peds IV ×2 (14:41→16:28)
[2018-11-15] MEDS: Glucerna Shake 120 ML LIQUID PO ×2 (14:55→17:39)
[2018-11-15 15:01] LABS: Bacteria 0 SEEN /hpf (None Seen); Color, Urine Yellow (Yellow); Glucose, Dipstick Normal (Normal); Ketone-Dipstick Negative (Negative); Leukocyte Esterase-Dipstick 100 /ul (Negative); Mucous, Urine 0 SEEN /hpf (<or=2+); Nitrite-Dipstick Negative (Negative); Occult Blood-Urine 250 /ul (Negative); Protein-Dipstick 100 mg/dl (Negative); Squamous Epithelial Cells - UA 0 SEEN /hpf (5-10); Urine Bilirubin Dipstick Negative (Negative); Urine Clarity Sl. Cloudy (Clear); Urine Urobilinogen Normal (Normal)
[2018-11-15 15:16] LABS: Red Blood Cells-Urine 10-25 SEEN /hpf (0-5); White Blood Cells 0-5 SEEN /hpf (0-5)
[2018-11-15] MEDS: Ondansetron 4 MG/2 ML Vial IV (16:25)
[2018-11-15 16:56] LABS: Bedside Glucose 233 mg/dL (70-110)
--- NOTE | 2018-11-15 17:26 | PCM.PN.BLA ---
Progress Note Asked to see the patient at the request of Dr. Jaramillo for nosebleed. HPI: 78 yo white female admitted for [place]. She was anticoagulated. She began actively bleeding from the right nose this afternoon and has now been bleeding for about an hour. Cardiac catheterization is scheduled for tomorrow. She usually battles nosebleeds through the winter, but has never required cautery or packing. Past Medical History Past Medical History (Chronic Problems): Chronic Problems (Last Reviewed 06/07/18 @ 14:09 by Heike Pedraza) Hypertension (Chronic) Medical History: Medical History (Last Reviewed 06/07/18 @ 14:09 by Heike Pedraza) Abdominal pain R10.9 Anxiety F41.9 Cholelithiasis K80.20 Constipation K59.00 Diabetes E11.9 Gout M10.9 History of hysterectomy Z90.710 Nausea & vomiting R11.2 Rheumatoid arthritis M06.9 Hypertension I10 Allergies codeine Adverse Reaction (Verified 11/15/18 06:12) Hives pain medications Adverse Reaction (Intermediate, Uncoded 11/15/18 06:12) nausea/vomiting Home Medications: Ambulatory Orders Medication Instructions Recorded Atenolol [Tenormin (beta marilyn)] 100 mg PO DAILY 12/05/17 insulin detemir (U-100) 100 45 unit SC BREAKFAST ml 05/26/18 unit/mL (3 mL) subcutaneous pen insulin lispro (U- 100) 100 15 unit SC TIDCM 05/26/18 unit/mL subcutaneous pen Azathioprine [Imuran] 100 mg PO DAILY@0800 11/15/18 Budesonide [Budesonide EC] 3 mg PO DAILY 11/15/18 Cephalexin [Keflex] 500 mg PO TID 11/15/18 Furosemide [Lasix] 20 mg PO DAILY 11/15/18 Surgical History: cholecystectomy Psychiatric History: No pertinent psych hx 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 Lives: Spouse/ Significant Other Smoking Status: Never smoker Alcohol: None - *Family History Maternal Family History: Family History (Last Reviewed 06/07/18 @ 14:09 by Heike Pedraza) Father Heart disease History Items: No pertinent history Paternal Family History: Family History (Last Reviewed 06/07/18 @ 14:09 by Heike Pedraza) Father Heart disease History Items: No pertinent history Review of Systems Constitutional: Denies: Chills, Fever, Malaise, Weakness, Weight Change Eyes: Denies: Blurred vision HEENT: Denies: Head Aches, Sinus Congestion, Sinus Drainage Cardiovascular: Reports: Chest Pain, Chest Pressure, Chest Tightness, Edema, Orthopnea, Paroxysmal Noc. Dyspnea. Denies: Heaviness, Palpitations Respiratory: Reports: Shortness of Breath, Shortness of breath upon exertion. Denies: Cough, Shortness of breath at rest, Sputum production Gastrointestinal: Denies: Abdominal Pain, Nausea, Vomiting Genitourinary: Denies: Dysuria Musculoskeletal: Denies: Joint Pain, Joint Tenderness Skin: Denies: Rash, Wounds Neurological: Denies: Numbness, Tingling, Focal weakness Psychiatric: Denies: Anxiety, Depression, Homicidal Ideations, Suicidal Ideations Hematologic/ Lymphatic: Denies: Easy Bruising, Easy Bleeding VTE Information - Inpt Only VTE Present on Admission: No VTE Pharm Prophylaxis ordered?: Yes Patient Problems: Active and Suspected Problems (Last Reviewed 06/07/18 @ 14:09 by Heike Pedraza) Acute coronary syndrome (Acute) Non-STEMI (non-ST elevated myocardial infarction) (Acute) Hypercholesterolemia (Acute) Congestive heart failure of unknown etiology (Acute) Abnormal EKG (Acute) PE: awake alert nad +nasal canula +active bleeding from the right nostril She was placed back in bed. M/op no bleeding Nose-Clots were evacuated from the right nasal chamber. The source of the bleeding was localized to the anterior septum. Procedure: 4% topical lidocaine was placed on the right nasal septum. Several areas were found to be bleeding and these were all cauterized with silver nitrate. She tolerated this well without complications A: epistaxis after anticoagulation controlled so far with chemical cautery P: I would utilize a humidified face shield instead of a nasal canula as the canula will rub on the newly cauterized area. She will need saline nasal spray TID for the next 2 weeks. I would be very cautious about any further anticoagulation given her active bleeding today.
--- NOTE | 2018-11-15 17:33 | PN_ITS ---
Progress Note Asked to see the patient at the request of Dr. Jaramillo for nosebleed. HPI: 78 yo white female admitted for [place]. She was anticoagulated. She began actively bleeding from the right nose this afternoon and has now been bleeding for about an hour. Cardiac catheterization is scheduled for tomorrow. She usually battles nosebleeds through the winter, but has never required cautery or packing. Past Medical History Past Medical History (Chronic Problems): Chronic Problems (Last Reviewed 06/07/18 @ 14:09 by Heike Pedraza) Hypertension (Chronic) Medical History: Medical History (Last Reviewed 06/07/18 @ 14:09 by Heike Pedraza) Abdominal pain R10.9 Anxiety F41.9 Cholelithiasis K80.20 Constipation K59.00 Diabetes E11.9 Gout M10.9 History of hysterectomy Z90.710 Nausea & vomiting R11.2 Rheumatoid arthritis M06.9 Hypertension I10 Allergies codeine Adverse Reaction (Verified 11/15/18 06:12) Hives pain medications Adverse Reaction (Intermediate, Uncoded 11/15/18 06:12) nausea/vomiting Home Medications: Ambulatory Orders Medication Instructions Recorded Atenolol [Tenormin (beta marilyn)] 100 mg PO DAILY 12/05/17 insulin detemir (U-100) 100 45 unit SC BREAKFAST ml 05/26/18 unit/mL (3 mL) subcutaneous pen insulin lispro (U- 100) 100 15 unit SC TIDCM 05/26/18 unit/mL subcutaneous pen Azathioprine [Imuran] 100 mg PO DAILY@0800 11/15/18 Budesonide [Budesonide EC] 3 mg PO DAILY 11/15/18 Cephalexin [Keflex] 500 mg PO TID 11/15/18 Furosemide [Lasix] 20 mg PO DAILY 11/15/18 Surgical History: cholecystectomy Psychiatric History: No pertinent psych hx 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 Lives: Spouse/ Significant Other Smoking Status: Never smoker Alcohol: None - *Family History Maternal Family History: Family History (Last Reviewed 06/07/18 @ 14:09 by Heike Pedraza) Father Heart disease History Items: No pertinent history Paternal Family History: Family History (Last Reviewed 06/07/18 @ 14:09 by Heike Pedraza) Father Heart disease History Items: No pertinent history Review of Systems Constitutional: Denies: Chills, Fever, Malaise, Weakness, Weight Change Eyes: Denies: Blurred vision HEENT: Denies: Head Aches, Sinus Congestion, Sinus Drainage Cardiovascular: Reports: Chest Pain, Chest Pressure, Chest Tightness, Edema, Orthopnea, Paroxysmal Noc. Dyspnea. Denies: Heaviness, Palpitations Respiratory: Reports: Shortness of Breath, Shortness of breath upon exertion. Denies: Cough, Shortness of breath at rest, Sputum production Gastrointestinal: Denies: Abdominal Pain, Nausea, Vomiting Genitourinary: Denies: Dysuria Musculoskeletal: Denies: Joint Pain, Joint Tenderness Skin: Denies: Rash, Wounds Neurological: Denies: Numbness, Tingling, Focal weakness Psychiatric: Denies: Anxiety, Depression, Homicidal Ideations, Suicidal Ideations Hematologic/ Lymphatic: Denies: Easy Bruising, Easy Bleeding VTE Information - Inpt Only VTE Present on Admission: No VTE Pharm Prophylaxis ordered?: Yes Patient Problems: Active and Suspected Problems (Last Reviewed 06/07/18 @ 14:09 by Heike Pedraza) Acute coronary syndrome (Acute) Non-STEMI (non-ST elevated myocardial infarction) (Acute) Hypercholesterolemia (Acute) Congestive heart failure of unknown etiology (Acute) Abnormal EKG (Acute) PE: awake alert nad +nasal canula +active bleeding from the right nostril She was placed back in bed. M/op no bleeding Nose-Clots were evacuated from the right nasal chamber. The source of the bleeding was localized to the anterior septum. Procedure: 4% topical lidocaine was placed on the right nasal septum. Several areas were found to be bleeding and these were all cauterized with silver nitrate. She tolerated this well without complications A: epistaxis after anticoagulation controlled so far with chemical cautery P: I would utilize a humidified face shield instead of a nasal canula as the canula will rub on the newly cauterized area. She will need saline nasal spray TID for the next 2 weeks. I would be very cautious about any further anticoagulation given her active bleeding today.
[2018-11-15] MEDS: Silver Nitrate (BKC) 1 EACH TOPICAL (17:45)
[2018-11-15] MEDS: Lidocaine 4% 50 ML Bottle TOPICAL (17:45)
[2018-11-15 17:49] LABS: Reflex Lactate? Y
[2018-11-15] MEDS: Acetaminophen 325 MG Tablet 650 MG PO (20:35)
[2018-11-15] MEDS: Atorvastatin Calcium 40 MG Tablet PO (21:33)
[2018-11-16] VITALS (52 sets, daily range): BP systolic 122–173; BP diastolic 43–71; PULSE 72–83; RESP 18–26; TEMP 36.5–37.7; O2SAT 92–99
[2018-11-16 00:01] LABS: Bedside Glucose 211 mg/dL (70-110)
[2018-11-16] MEDS: 0.9% NaCl Peripheral Flush Adult/Peds IV ×2 (04:21→13:29)
[2018-11-16 04:37] LABS: Absolute Lymphocyte Count 2.02 X10^3/ul (0.83-4.51); Absolute Neutrophil Count 6.2 X10^3/uL (2.0-7.7); Basophil# 0.05 X10^3/uL; Basophil% 0.6 % (0-1); Eosinophil# 0.24 X10^3/uL; Eosinophils% 2.7 % (0-5); Hematocrit 26.5 % (37-47); Hemoglobin 8.6 g/dl (12.0-15.0); Lymphocyte # 2.02 X10^3/ul (4.0); Lymphocyte % 22.4 % (19-41); Mean Corp Hgb Conc 32.5 g/gl (32-36); Mean Corpuscular Hgb 36.1 pg (27.0-32.0); Mean Corpuscular Volume 111.3 fL (81-99); Mean Platelet Vol. 10.1 fl (6.2-12.0); Monocyte# 0.45 X10^3/uL; Neutrophil # 6.17 X10^3/uL (2.7-7.7); Neutrophil % 68.5 % (47-70); Platelet Count 146 K/mm3 (150-450); RBC Distribution Width CV 13.7 % (11.6-14.6); RBC Distribution Width SD 53.4 fl (35.1-43.9); Red Blood Count 2.38 M/mm3 (4.2-5.4)
[2018-11-16 04:38] LABS: POSITIVE COUNT NO; POSITIVE DIFFERENTIAL NO; POSITIVE MORPHOLOGY NO
[2018-11-16 04:43] LABS: International Normalized Ratio 1.3; Prothrombin Time (Protime)PT. 16.3 SECONDS (11.7-14.9)
[2018-11-16 04:44] LABS: Partial Thromboplast Time 46.2 Seconds (24.1-36.2)
[2018-11-16 04:51] LABS: Anion Gap 12 (5-15); BUN 73 mg/dL (7-18); BUN/Creat Ratio 33.6 RATIO (10-20); Calcium,Total 7.8 mg/dL (8.5-10.1); Chloride 108 mmol/L (98-107); Creatinine, Serum 2.17 mg/dL (0.55-1.02); EST Glomerular Filtration Rate 23 mL/min (>60); Est Glom Filt Rate - Afr Amer 28 mL/min (>60); Estimated Creatinine Clearance 17.44 ml/min; Glucose 119 mg/dL (74-106); Potassium 4.2 mmol/L (3.5-5.1); Sodium Level 141 mmol/L (136-145)
--- NOTE | 2018-11-16 05:00 | EKG12_ITS ---
Test Reason : AM EKG Blood Pressure : / mmHG Vent. Rate : 079 BPM Atrial Rate : 079 BPM P-R Int : 138 ms QRS Dur : 120 ms QT Int : 442 ms P-R-T Axes : 013 018 240 degrees QTc Int : 506 ms Normal sinus rhythm Right bundle branch block Marked ST abnormality, possible inferior subendocardial injury Abnormal ECG When compared with ECG of 15-NOV-2018 06:13, MANUAL COMPARISON REQUIRED, DATA IS UNCONFIRMED Confirmed by ROCHELLE BRYSON, TONIA ([id number]), acquisition editor OPHELIA SIERRA ([id number] on 11/18/2018 9:31:46 AM Referred By: RADHA Confirmed By:TONIA BYRD MD
[2018-11-16] MEDS: Aspirin 81 MG TAB.CHEW PO (05:57)
[2018-11-16] MEDS: TICAGRELOR 90 MG TABLET PO (05:57)
[2018-11-16] MEDS: CHLORHEXIDINE GLUC 2% CLOTH 1 EACH TOWELETTE TOPICAL (05:57)
[2018-11-16] MEDS: Atenolol 50 MG Tablet PO (05:58)
[2018-11-16 08:06] LABS: Bedside Glucose 105 mg/dL (70-110)
[2018-11-16] MEDS: DiphenhydrAMINE 25 MG Capsule 50 MG PO (08:07)
--- NOTE | 2018-11-16 08:56 | CL.D_ITS ---
Patient Name: JUN JOHNSON Study Date: 11/16/2018 Performing: Greyson Motta MD Ht: 61.81 inches 157 cm : 1940 Wt: 174.17 lbs 79 kg Age: 78 Gender: female BSA: 1.8 PROCEDURE(S) PERFORMED [id number]/[facility] CLINICAL PROFILE AND INDICATIONS Patient presents with NSTEMI for urgent cardiac cath Indications: ACS <= 24 hrs, New Onset Angina <= 2 months, Suspected CAD, LV Dysfunction Heart Failure: NYHA Class: 3, Newly Diagnosed: Yes, Heart Failure Type: Systolic Stress/Imaging Stress/Image Study Performed: No Angina Classification Anginal Classification w/in 2 Weeks: CCS IV CAD Presentations: Unstable angina. Non-STEMI. Symptom onset Date/Time: 11/15/2018 Time Not Availa ble Comorbidities/Risk Factors: Hypertension Dyslipidemia Diabetes Mellitus: Diabetes Therapy: Oral CONCLUSIONS Triple vessel CAD of the LAD, LCX and PDA/PL branch RECOMMENDATIONS Staged percutaneous intervention vs. Surgical Intervention Risk factor modification ASA Indefinitely Switch from brilinta to plavix. If pts hgb remains stable and no further epistaxis on DAPT, will consider staged PCI Of proximal/mid LAD, followed by staged PCI Of PL and PDA given CRI utilizing long 55 cm sheath. Would consider staged pci vs cabg given location of lesions and doubtful ability to bypass PL branch. Start imdur/hydralazine for CHF. Manual sheath removal. DESCRIPTION OF PROCEDURE The patient arrived to the procedure lab. The risks and benefits of the procedure as well as a full d escription of our services here and current unavailability of surgical backup were fully explained to the patient and/or their significant other prior to the catheterization. The Timeout was completed, verifying the correct patient and procedure. The patient's procedural site was prepped and draped in the usual fashion. Local anesthetic was given subcutaneously to right groin region with Lidocaine 2%. Using a modified Seldinger technique, arterial access was obtained via the right femoral artery, a 4 Fr sheath was inserted Left Coronary Artery selective angiography was performed in multiple views us ing a 4 Fr. JL5 catheter. Right Coronary Artery selective angiography was then performed in multiple views using a 4 Fr. 3DRC catheter.The arterial sheath was pulled and manual compression applied until hemostasis is achieved. CORONARY ANGIOGRAPHY DOMINANCE: Right Dominant LEFT HEART ASSESSMENT Left Ventricular Ejection Fraction: Not assessed LVEDP: 8 mmHg LEFT MAIN: No significant disease noted LEFT ANTERIOR DECENDING ARTERY: PROX LAD: 75 % Stenosis MID LAD: 85 % Stenosis DIAGONAL 2: Proximal - Moderate luminal irregularities up to 50% CIRCUMFLEX ARTERY: is occluded RIGHT CORONARY ARTERY: Moderate calcification PROX RCA: Mild luminal irregularities less than 30% RT PLV: 75 % Stenosis RT PDA: Mid - 75 % Stenosis COLLATERAL FLOW: Collateral flow from Right to Left COMPLICATIONS No Complications PROCEDURE MEDICATIONS Oxygen: 2 L/min via non-rebreather mask No medications given during this procedure SUMMARY OF HEMODYNAMIC DATA Time AIR REST ECG 08:23:57 AO 159/65 (100) SA 08:33:09 LV 151/-8, 14 08:37:46 LV 152/-8, 13 08:37:53 AO 151/56 (93) 08:38:24 RM AIR REST 08:59:16 Signed By Greyson Motta MD On 11/16/2018 11:09:25 AM Signed By Greyson Motta MD On 11/16/2018 08:55:00 Greyson Motta MD
--- NOTE | 2018-11-16 09:22 | PCM.PN.HOSP ---
Patient Problems: Active and Suspected Problems (Last Reviewed 06/07/18 @ 14:09 by Heike Pedraza) Acute coronary syndrome (Acute) Non-STEMI (non-ST elevated myocardial infarction) (Acute) Hypercholesterolemia (Acute) Congestive heart failure of unknown etiology (Acute) Abnormal EKG (Acute) Subjective: Patient seen and examined. She was admitted with a complaint of shortness of breath and was found to have non-STEMI as well as acute hypoxic respiratory failure due to acute diastolic heart failure. She was admitted to monitored bed and received renal adjusted Lovenox, Brilinta, aspirin and statin will continue with atenolol. Patient developed epistasis yesterday and had her right nostril cauterized by ENT. She was switched to oxygen by humidified facemask. Patient seen and examined this morning. She had diagnostic cardiac cath this morning which showed triple-vessel disease of the LAD, left circumflex and PDA/PL branches. Shortness of breath has improved that she remains on 10 L of oxygen; she was titrated down to 2 L yesterday and so this centimeters is likely due to the fact that she has been on the humidified oxygen by facemask.. She denies any fever chills, cough or chest pain, abdominal pain, diarrhea vomiting. Vitals/I&O's: Vital Signs Temp Pulse Resp BP Pulse Ox 98.9 F 73 19 H 145/54 H 94 11/16/18 04:00 11/16/18 09:00 11/16/18 08:00 11/16/18 08:00 11/16/18 08:00 Oxygen Flow Rate (L/min) 10 Oxygen Delivery Method Simple Mask Weight: 173 lb 15.115 oz Body Mass Index (BMI) 31.1 Finger Stick Blood Glucose 159 Intake and Output for Last 24 Hours 11/14/18 11/15/18 11/16/18 23:59 23:59 23:59 Intake Total 928 / 928 722.6 / 722.6 Output Total 775 / 775 850 / 850 Balance 153 / 153 -127.4 / -127.4 General: Alert, Oriented x3, Cooperative, No apparent distress HEENT: Atraumatic, PERRLA, EOMI, Normocephalic Oral: Moist Mucosa, - - scanty dried blood in right nasal mucosa Neck: Supple, No JVD, Negative Carotid Bruits Lungs: - - decreased breath sounds bibasally, with mild crackles. No wheezing or rhonchi. on 10L of oxygen by humidified face mask. Cardiovascular: Regular rate, Regular Rhythm, Normal S1, Normal S2, No murmurs Abdomen: Bowel Sounds Present, Soft, Non Tender, Non-Distended, No Hepato-splenomegaly Extremities: No clubbing, No cyanosis, No edema, Capillary Refill Less than 3 Seconds Skin: - - superficial ulceration of right lateral LE Musculoskeletal: No Tenderness to Palpation of Joints or Extremities Lymphatic: No Cervical, Supraclavicular, or Inguinal Adenopathy Neurological: Cranial nerves II-XII grossly intact, Neuro grossly intact, Motor Exam 5/5 strength throughout Psych/Mental Status: Normal Affect, Appropriate, Alert and oriented to time, place, person, mood and affect Laboratory Results 11/15/18 06:12: Triglycerides 159, Cholesterol 131, LDL Cholesterol 58, VLDL Cholesterol 32, HDL Cholesterol 41 11/15/18 09:10: POC Glucose 178 H 11/15/18 10:00: Troponin I 2.990 H* 11/15/18 11:10: Lactic Acid 2.6 H 11/15/18 11:44: POC Glucose 297 H 11/15/18 13:40: Troponin I 4.700 H* 11/15/18 13:40: Lactic Acid 2.2 H 11/15/18 14:50: Urine Color Yellow, Urine Clarity Sl. Cloudy, Urine pH 6.0, Ur Specific [place] 1.010, Urine Protein 100 H, Urine Glucose (UA) Normal, Urine Ketones Negative, Urine Occult Blood 250 H, Urine Nitrite Negative, Urine Bilirubin Negative, Urine Urobilinogen Normal, Ur Leukocyte Esterase 100 H, Urine RBC 10-25 SEEN, Urine WBC 0-5 SEEN, Ur Squamous Epith Cells 0 SEEN, Urine Bacteria 0 SEEN, Urine Mucus 0 SEEN 11/15/18 16:26: POC Glucose 233 H 11/15/18 21:32: POC Glucose 211 H 11/16/18 04:20: WBC 9.0, RBC 2.38 L, Hgb 8.6 L, Hct 26.5 L, MCV 111.3 H, MCH 36.1 H, MCHC 32.5, RDW 13.7, RDW Differential 53.4 H, Plt Count 146 L, MPV 10.1, Immature Gran % (Auto) 0.800, Neut % (Auto) 68.5, Lymph % (Auto) 22.4, [place] % (Auto) 5.0, Eos % (Auto) 2.7, Baso % (Auto) 0.6, Absolute Neuts (auto) 6.2, Absolute Lymphs (auto) 2.02, Total Counted Not Reportable 11/16/18 04:20: Sodium 141, Potassium 4.2, Chloride 108 H, Carbon Dioxide 21.0, Anion Gap 12, BUN 73 H, Creatinine 2.17 H, Estim Creat Clear Calc 17.44, Est GFR (MDRD) Af Amer 28 L, Est GFR (MDRD) Non-Af 23 L, BUN/Creatinine Ratio 33.6 H, Glucose 119 H, Calcium 7.8 L 11/16/18 04:20: Hemoglobin A1c Pending 11/16/18 04:20: PT 16.3 H, INR 1.3, APTT 46.2 H 11/16/18 08:02: POC Glucose 105 Diagnostic Data Chest X-Ray 11/15/18 06:23 IMPRESSION: Mild cardiomegaly with chronic interstitial changes in the lungs. No pleural effusions Electronically Signed: Rubin Irwin MD at 6:44 EST Tel , Service support , Current Medications Acetaminophen (Tylenol) 650 mg PO Q6H PRN PRN PRN Reason: PAIN Last Admin: 11/15/18 20:35 Dose: 650 mg Aspirin (Aspirin, Baby) 81 mg PO DAILY@0800 [facility] Last Admin: 11/16/18 05:57 Dose: 81 mg Atenolol (Tenormin (Beta Elvia)) 50 mg PO DAILY [facility] Last Admin: 11/16/18 05:58 Dose: 50 mg Atorvastatin Calcium (Lipitor) 80 mg PO QHS [facility] Azathioprine (Imuran) 100 mg PO DAILY@0800 [facility] Last Admin: 11/15/18 10:20 Dose: 100 mg Budesonide (Budesonide Ec) 3 mg PO DAILY [facility] Last Admin: 11/15/18 10:13 Dose: 3 mg Chlorhexidine Gluconate () 1 each TOPICAL DAILY [facility] Last Admin: 11/16/18 05:57 Dose: 1 each Clopidogrel Bisulfate (Plavix) 75 mg PO DAILY [facility] Dextrose (D50w Syringe) 0 gm IV X1 PRN; Protocol PRN Reason: Hypoglycemia Furosemide (Lasix) 40 mg IV BID@1000,1800 [facility] Last Admin: 11/15/18 17:39 Dose: 40 mg Glucagon () 1 mg IM .X1 PRN PRN Reason: Hypoglycemia Heparin Sodium (Beef Lung) (Heparin 500 Unit/5 Ml (100/Ml)) 500 unit IV UD PRN PRN Reason: HEPARIN FLUSH Hydralazine HCl (Apresoline) 10 mg PO BID [facility] Piperacillin Sod/Tazobactam (Sod 3.375 gm/ Sodium Chloride) 50 mls @ 12.5 mls/hr IV Q12 [facility] Last Admin: 11/15/18 21:33 Dose: 12.5 mls/hr Vancomycin IV Pharmacy to Dose (1 ea/ Sodium Chloride) 500 mls @ 250 mls/hr IV X1 PRN; Protocol PRN Reason: Rx to Dose Sodium Chloride () 250 mls @ 15 mls/hr IV .[id number] PRN PRN Reason: SALINE FLUSH Last Admin: 11/15/18 10:12 Dose: 15 mls/hr Sodium Chloride () 1,000 mls @ 0 mls/hr IV .Q0M [facility] Nitroglycerin/Dextrose 25 mg/ (N/A) 250 mls @ 3 mls/hr IV .[id number] [facility] Last Admin: 11/16/18 02:05 Dose: 3 mls/hr Insulin Glargine (Lantus (Bkc)) 45 units SC BREAKFAST [facility] Last Admin: 11/15/18 10:13 Dose: 45 u Insulin Human Lispro (Humalog Kwikpen (Bkc)) 0 unit SQ ACHS [facility]; Protocol Last Admin: 11/16/18 08:30 Dose: Not Given Isosorbide Mononitrate (Imdur) 30 mg PO DAILY [facility] Labetalol HCl (Trandate) 5 mg IV X1 PRN PRN Reason: SBP > 160 prior to sheath pull Stop: 11/18/18 08:46 Magnesium Hydroxide (Milk Of Magnesia) 30 ml PO DAILY PRN PRN PRN Reason: Constipation Metoprolol Tartrate (Lopressor (Beta Elvia)) 2.5 mg IV Q6H PRN PRN Reason: BLOOD PRESSURE ELEVATION Last Admin: 11/15/18 14:41 Dose: 2.5 mg Nitroglycerin (Nitrostat) 0.4 mg SUBLINGUAL Q5M PRN PRN Reason: CARDIAC/CHEST PAIN Nutritional Formula (Lactose Free) (Glucerna Shake) 120 ml PO 4X/DAY [facility] Last Admin: 11/15/18 21:34 Dose: Not Given Ondansetron HCl (Zofran) 4 mg IV Q6H PRN PRN PRN Reason: NAUSEA Last Admin: 11/15/18 16:25 Dose: 4 mg Sodium Chloride () 5 - 15 ml IV UD PRN PRN Reason: SALINE FLUSH Last Admin: 11/16/18 04:21 Dose: 15 ml Sodium Chloride ([place] Nasal [place]) 2 spray NASAL TID PRN PRN PRN Reason: NASAL DRYNESS Medical Necessity - Tobacco Use Smoking Status: Never smoker Assessment/Plan All Active Problems (Last Reviewed 06/07/18 @ 14:09 by Heike Pedraza) Acute coronary syndrome (Acute) Non-STEMI (non-ST elevated myocardial infarction) (Acute) Hypercholesterolemia (Acute) Congestive heart failure of unknown etiology (Acute) Abnormal EKG (Acute) 1. NSTEMI chest pain has resolved. initial troponin was 1.42, and trended up to 4.7. had cardiac cath this morning which showed triple vessel disease in LAD, left circumflex and PDA/PL branch on aspirin and plavix, statin and atenolol. per cardiology, if hemoglobin remained stable and there is no further epistasis on dual antiplatelet therapy, will consider staged PCI of proximal/mid LAD followed by staged PCI of PL and PDA. Would consider staged PCI versus CABG given location of lesions and doubtful ability to bypass PL branch. cardiology on board 2D echo as under 2. 2. Acute diastolic heart failure BNP was >2000. CXR as under 1 Urgent 2D echo done showed moderate concentric LVH with EF of 50%, stage I diastolic dysfunction and mild hypokinesis of mid anteroseptal and lateral basal pillai. RVSP was 48 mmHg. on IV lasix 40mg bid urine output was 775 over last 24 hours; 850mls so far today. was in minimal positive balance of 153 mls over last 24 hours fluid restriction to 1500cc every 24 hours 3. Acute hypoxic respiratory failure due to acute diastolic heart failure and NSTEMI Been mildly tachypneic overnight breathing in the low 20s. still on 10L of oxygen by humified face mask, though she looks much improved titrate oxygen to maintain sats at >92% breathing treatments with duonebs add on imdur and hydralazine per cardiology 4. Severe sepsis possibly due to cellulitis SIRS criteria is now 0/4 lactic acid trended down to 2.2 UA was negative for UTI blood cultures pending will de-escalate antibiotics to IV unasyn 5. Epistaxis developed epistaxis of right nostril yesterday,. And required cautery by ENT surgeon. States she has a history of epistasis usually during the winter months. This was also likely exacerbated by anticoagulants that received Has resolved now. Will monitor. 6. CKD 4: Cr is 2.17, with eGFR of 25, which is around her baseline. will monitor Cr 7. Acute blood loss anemia: Hb fell from 10.6 to 8.6, likely due to epistaxis. WIll monitor. Consider transfusion if Hb falls below 8 o/a of nonSTEMI and heart failure. 8. Hypertension: on atenolol 50mg daily. Fairly controlled for age. WIll monitor. Imdur and hydralazine added on o./a of heart failure. 9. Diabetes mellitus: A1C pending. On insulin glargine 45 units subcu. Insulin sliding scale. Accu-Cheks AC at bedtime. 10. Anion gap metabolic acidosis: resolved. Anion gap is 12 today, and bicarb is 21. DVT prophylaxis: SCDs o/a of epistaxis. Code Visit Inpatient E&M: 73862 Subs Hosp L3
--- NOTE | 2018-11-16 09:26 | PN_ITS ---
Patient Problems: Active and Suspected Problems (Last Reviewed 06/07/18 @ 14:09 by Heike Pedraza) Acute coronary syndrome (Acute) Non-STEMI (non-ST elevated myocardial infarction) (Acute) Hypercholesterolemia (Acute) Congestive heart failure of unknown etiology (Acute) Abnormal EKG (Acute) Subjective: Patient seen and examined. She was admitted with a complaint of shortness of breath and was found to have non-STEMI as well as acute hypoxic respiratory failure due to acute diastolic heart failure. She was admitted to monitored bed and received renal adjusted Lovenox, Brilinta, aspirin and statin will continue with atenolol. Patient developed epistasis yesterday and had her right nostril cauterized by ENT. She was switched to oxygen by humidified facemask. Patient seen and examined this morning. She had diagnostic cardiac cath this morning which showed triple-vessel disease of the LAD, left circumflex and PDA/PL br anches. Shortness of breath has improved that she remains on 10 L of oxygen; she was titrated down to 2 L yesterday and so this centimeters is likely due to the fact that she has been on the humidified oxygen by facemask.. She denies any fever chills, cough or chest pain, abdominal pain, diarrhea vomiting. Vitals/I&O's: Vital Signs Temp Pulse Resp BP Pulse Ox 98.9 F 73 19 H 145/54 H 94 11/16/18 04:00 11/16/18 09:00 11/16/18 08:00 11/16/18 08:00 11/16/18 08:00 Oxygen Flow Rate (L/min) 10 Oxygen Delivery Method Simple Mask Weight: 173 lb 15.115 oz Body Mass Index (BMI) 31.1 Finger Stick Blood Glucose 159 Intake and Output for Last 24 Hours 11/14/18 11/15/18 11/16/18 23:59 23:59 23:59 Intake Total 928 / 928 722.6 / 722.6 Output Total 775 / 775 850 / 850 Balance 153 / 153 -127.4 / -127.4 General: Alert, Oriented x3, Cooperative, No apparent distress HEENT: Atraumatic, PERRLA, EOMI, Normocephalic Oral: Moist Mucosa, - - scanty dried blood in right nasal mucosa Neck: Supple, No JVD, Negative Carotid Bruits Lungs: - - decreased breath sounds bibasally, with mild crackles. No wheezing or rhonchi. on 10L of oxygen by humidified face mask. Cardiovascular: Regular rate, Regular Rhythm, Normal S1, Normal S2, No murmurs Abdomen: Bowel Sounds Present, Soft, Non Tender, Non-Distended, No Hepato- splenomegaly Extremities: No clubbing, No cyanosis, No edema, Capillary Refill Less than 3 Seconds Skin: - - superficial ulceration of right lateral LE Musculoskeletal: No Tenderness to Palpation of Joints or Extremities Lymphatic: No Cervical, Supraclavicular, or Inguinal Adenopathy Neurological: Cranial nerves II-XII grossly intact, Neuro grossly intact, Motor Exam 5/5 strength throughout Psych/Mental Status: Normal Affect, Appropriate, Alert and oriented to time, place, person, mood and affect Laboratory Results 11/15/18 06:12: Triglycerides 159, Cholesterol 131, LDL Cholesterol 58, VLDL Cholesterol 32, HDL Cholesterol 41 11/15/18 09:10: POC Glucose 178 H 11/15/18 10:00: Troponin I 2.990 H* 11/15/18 11:10: Lactic Acid 2.6 H 11/15/18 11:44: POC Glucose 297 H 11/15/18 13:40: Troponin I 4.700 H* 11/15/18 13:40: Lactic Acid 2.2 H 11/15/18 14:50: Urine Color Yellow, Urine Clarity Sl. Cloudy, Urine pH 6.0, Ur Specific [place] 1.010, Urine Protein 100 H, Urine Glucose (UA) Normal, Urine Ketones Negative, Urine Occult Blood 250 H, Urine Nitrite Negative, Urine Bilirubin Negative, Urine Urobilinogen Normal, Ur Leukocyte Esterase 100 H, Urine RBC 10-25 SEEN, Urine WBC 0-5 SEEN, Ur Squamous Epith Cells 0 SEEN, Urine Bacteria 0 SEEN, Urine Mucus 0 SEEN 11/15/18 16:26: POC Glucose 233 H 11/15/18 21:32: POC Glucose 211 H 11/16/18 04:20: WBC 9.0, RBC 2.38 L, Hgb 8.6 L, Hct 26.5 L, MCV 111.3 H, MCH 36.1 H, MCHC 32.5, RDW 13.7, RDW Differential 53.4 H, Plt Count 146 L, MPV 10.1, Immature Gran % (Auto) 0.800, Neut % (Auto) 68.5, Lymph % (Auto) 22.4, [place] % (Auto) 5.0, Eos % (Auto) 2.7, Baso % (Auto) 0.6, Absolute Neuts (auto) 6.2, Absolute Lymphs (auto) 2.02, Total Counted Not Reportable 11/16/18 04:20: Sodium 141, Potassium 4.2, Chloride 108 H, Carbon Dioxide 21.0, Anion Gap 12, BUN 73 H, Creatinine 2.17 H, Estim Creat Clear Calc 17.44, Est GFR (MDRD) Af Amer 28 L, Est GFR (MDRD) Non-Af 23 L, BUN/Creatinine Ratio 33.6 H, Glucose 119 H, Calcium 7.8 L 11/16/18 04:20: Hemoglobin A1c Pending 11/16/18 04:20: PT 16.3 H, INR 1.3, APTT 46.2 H 11/16/18 08:02: POC Glucose 105 Diagnostic Data Chest X-Ray 11/15/18 06:23 IMPRESSION: Mild cardiomegaly with chronic interstitial changes in the lungs. No pleural effusions Electronically Signed: Rubin Irwin MD at 6:44 EST Tel , Service support , Current Medications Acetaminophen (Tylenol) 650 mg PO Q6H PRN PRN PRN Reason: PAIN Last Admin: 11/15/18 20:35 Dose: 650 mg Aspirin (Aspirin, Baby) 81 mg PO DAILY@0800 [facility] Last Admin: 11/16/18 05:57 Dose: 81 mg Atenolol (Tenormin (Beta Elvia)) 50 mg PO DAILY [facility] Last Admin: 11/16/18 05:58 Dose: 50 mg Atorvastatin Calcium (Lipitor) 80 mg PO QHS [facility] Azathioprine (Imuran) 100 mg PO DAILY@0800 [facility] Last Admin: 11/15/18 10:20 Dose: 100 mg Budesonide (Budesonide Ec) 3 mg PO DAILY [facility] Last Admin: 11/15/18 10:13 Dose: 3 mg Chlorhexidine Gluconate () 1 each TOPICAL DAILY [facility] Last Admin: 11/16/18 05:57 Dose: 1 each Clopidogrel Bisulfate (Plavix) 75 mg PO DAILY [facility] Dextrose (D50w Syringe) 0 gm IV X1 PRN; Protocol PRN Reason: Hypoglycemia Furosemide (Lasix) 40 mg IV BID@1000,1800 [facility] Last Admin: 11/15/18 17:39 Dose: 40 mg Glucagon () 1 mg IM .X1 PRN PRN Reason: Hypoglycemia Heparin Sodium (Beef Lung) (Heparin 500 Unit/5 Ml (100/Ml)) 500 unit IV UD PRN PRN Reason: HEPARIN FLUSH Hydralazine HCl (Apresoline) 10 mg PO BID [facility] Piperacillin Sod/Tazobactam (Sod 3.375 gm/ Sodium Chloride) 50 mls @ 12.5 mls/hr IV Q12 [facility] Last Admin: 11/15/18 21:33 Dose: 12.5 mls/hr Vancomycin IV Pharmacy to Dose (1 ea/ Sodium Chloride) 500 mls @ 250 mls/hr IV X1 PRN; Protocol PRN Reason: Rx to Dose Sodium Chloride () 250 mls @ 15 mls/hr IV .[id number] PRN PRN Reason: SALINE FLUSH Last Admin: 11/15/18 10:12 Dose: 15 mls/hr Sodium Chloride () 1,000 mls @ 0 mls/hr IV .Q0M [facility] Nitroglycerin/Dextrose 25 mg/ (N/A) 250 mls @ 3 mls/hr IV .[id number] [facility] Last Admin: 11/16/18 02:05 Dose: 3 mls/hr Insulin Glargine (Lantus (Bkc)) 45 units SC BREAKFAST [facility] Last Admin: 11/15/18 10:13 Dose: 45 u Insulin Human Lispro (Humalog Kwikpen (Bkc)) 0 unit SQ ACHS [facility]; Protocol Last Admin: 11/16/18 08:30 Dose: Not Given Isosorbide Mononitrate (Imdur) 30 mg PO DAILY [facility] Labetalol HCl (Trandate) 5 mg IV X1 PRN PRN Reason: SBP > 160 prior to sheath pull Stop: 11/18/18 08:46 Magnesium Hydroxide (Milk Of Magnesia) 30 ml PO DAILY PRN PRN PRN Reason: Constipation Metoprolol Tartrate (Lopressor (Beta Elvia)) 2.5 mg IV Q6H PRN PRN Reason: BLOOD PRESSURE ELEVATION Last Admin: 11/15/18 14:41 Dose: 2.5 mg Nitroglycerin (Nitrostat) 0.4 mg SUBLINGUAL Q5M PRN PRN Reason: CARDIAC/CHEST PAIN Nutritional Formula (Lactose Free) (Glucerna Shake) 120 ml PO 4X/DAY [facility] Last Admin: 11/15/18 21:34 Dose: Not Given Ondansetron HCl (Zofran) 4 mg IV Q6H PRN PRN PRN Reason: NAUSEA Last Admin: 11/15/18 16:25 Dose: 4 mg Sodium Chloride () 5 - 15 ml IV UD PRN PRN Reason: SALINE FLUSH Last Admin: 11/16/18 04:21 Dose: 15 ml Sodium Chloride ([place] Nasal [place]) 2 spray NASAL TID PRN PRN PRN Reason: NASAL DRYNESS Medical Necessity - Tobacco Use Smoking Status: Never smoker Assessment/Plan All Active Problems (Last Reviewed 06/07/18 @ 14:09 by Heike Pedraza) Acute coronary syndrome (Acute) Non-STEMI (non-ST elevated myocardial infarction) (Acute) Hypercholesterolemia (Acute) Congestive heart failure of unknown etiology (Acute) Abnormal EKG (Acute) 1. NSTEMI * chest pain has resolved. * initial troponin was 1.42, and trended up to 4.7. * had cardiac cath this morning which showed triple vessel disease in LAD, left circumflex and PDA/PL branch * on aspirin and plavix, statin and atenolol. * per cardiology, if hemoglobin remained stable and there is no further epistasis on dual antiplatelet therapy, will consider staged PCI of proximal/mid LAD followed by staged PCI of PL and PDA. Would consider staged PCI versus CABG given location of lesions and doubtful ability to bypass PL branch. * cardiology on board * 2D echo as under 2. * * 2. Acute diastolic heart failure * BNP was >2000. CXR as under 1 * Urgent 2D echo done showed moderate concentric LVH with EF of 50%, stage I diastolic dysfunction and mild hypokinesis of mid anteroseptal and lateral basal pillai. RVSP was 48 mmHg. * on IV lasix 40mg bid * urine output was 775 over last 24 hours; 850mls so far today. was in minimal positive balance of 153 mls over last 24 hours * fluid restriction to 1500cc every 24 hours * 3. Acute hypoxic respiratory failure due to acute diastolic heart failure and NSTEMI * Been mildly tachypneic overnight breathing in the low 20s. * still on 10L of oxygen by humified face mask, though she looks much improved * titrate oxygen to maintain sats at >92% * breathing treatments with duonebs * add on imdur and hydralazine per cardiology * 4. Severe sepsis possibly due to cellulitis * SIRS criteria is now 0/4 * lactic acid trended down to 2.2 * UA was negative for UTI * blood cultures pending * will de-escalate antibiotics to IV unasyn * 5. Epistaxis * developed epistaxis of right nostril yesterday,. And required cautery by ENT surgeon. * States she has a history of epistasis usually during the winter months. This was also likely exacerbated by anticoagulants that received * Has resolved now. Will monitor. * 6. CKD 4: * Cr is 2.17, with eGFR of 25, which is around her baseline. * will monitor Cr * 7. Acute blood loss anemia: * Hb fell from 10.6 to 8.6, likely due to epistaxis. * WIll monitor. * Consider transfusion if Hb falls below 8 o/a of nonSTEMI and heart failure. 8. Hypertension: on atenolol 50mg daily. Fairly controlled for age. WIll monitor. Imdur and hydralazine added on o./a of heart failure. 9. Diabetes mellitus: A1C pending. On insulin glargine 45 units subcu. Insulin sliding scale. Accu-Cheks AC at bedtime. 10. Anion gap metabolic acidosis: resolved. Anion gap is 12 today, and bicarb is 21. DVT prophylaxis: SCDs o/a of epistaxis. Code Visit Inpatient E&M: 38586 Subs Hosp L3
[2018-11-16 09:43] LABS: Hemoglobin A1c 5.4 % (4.2-6.3)
[2018-11-16] MEDS: azaTHIOprine 50 MG Tablet 100 MG PO (10:21)
[2018-11-16] MEDS: Budesonide 3 MG CAPSULE.EC PO (10:22)
[2018-11-16] MEDS: Clopidogrel Bisulfate 75 MG Tablet PO (10:22)
[2018-11-16] MEDS: Furosemide 40 MG/4 ML Vial IV ×2 (10:23→17:11)
[2018-11-16] MEDS: Glucerna Shake 120 ML LIQUID PO ×3 (10:28→21:51)
[2018-11-16] MEDS: hydrALAZINE 10 MG Tablet PO ×2 (10:28→21:48)
[2018-11-16] MEDS: Isosorbide Mononitrate 30 MG Tablet PO (11:13)
[2018-11-16 11:26] LABS: Bedside Glucose 139 mg/dL (70-110)
[2018-11-16] MEDS: hydrALAZINE 20 MG/ML Vial 10 MG IV (13:30)
[2018-11-16] MEDS: Acetaminophen 325 MG Tablet 650 MG PO ×2 (16:12→22:09)
[2018-11-16 17:16] LABS: Bedside Glucose 115 mg/dL (70-110)
[2018-11-16] MEDS: Atorvastatin Calcium 80 MG Tablet PO (21:49)
[2018-11-16] MEDS: Insulin Lispro 100 UNIT/ML INSULN.PEN SQ (21:50)
[2018-11-16 22:06] LABS: Bedside Glucose 190 mg/dL (70-110)
[2018-11-17] VITALS (11 sets, daily range): BP systolic 151–179; BP diastolic 60–66; PULSE 69–86; RESP 14–18; TEMP 36.6–37.4; O2SAT 96–98
[2018-11-17] MEDS: Budesonide 3 MG CAPSULE.EC PO (07:55)
[2018-11-17] MEDS: hydrALAZINE 10 MG Tablet PO ×2 (07:55→21:37)
[2018-11-17] MEDS: 0.9% NaCl Peripheral Flush Adult/Peds IV ×2 (07:55→13:05)
[2018-11-17] MEDS: Isosorbide Mononitrate 60 MG Tablet PO (07:55)
[2018-11-17] MEDS: azaTHIOprine 50 MG Tablet 100 MG PO (07:56)
[2018-11-17] MEDS: Furosemide 40 MG/4 ML Vial IV (07:56)
[2018-11-17] MEDS: Clopidogrel Bisulfate 75 MG Tablet PO (07:56)
[2018-11-17] MEDS: Aspirin 81 MG TAB.CHEW PO (07:56)
[2018-11-17] MEDS: Atenolol 50 MG Tablet PO (07:57)
[2018-11-17] MEDS: Sodium Chloride 0.65% 1 SPRAY SPRAY.BTL 2 SPRAY NASAL (07:57)
[2018-11-17] MEDS: Glucerna Shake 120 ML LIQUID PO ×3 (08:01→21:38)
[2018-11-17 08:02] LABS: Absolute Lymphocyte Count 1.56 X10^3/ul (0.83-4.51); Absolute Neutrophil Count 4.7 X10^3/uL (2.0-7.7); Basophil# 0.04 X10^3/uL; Basophil% 0.6 % (0-1); Eosinophil# 0.19 X10^3/uL; Eosinophils% 2.7 % (0-5); Hematocrit 27.9 % (37-47); Lymphocyte # 1.56 X10^3/ul (4.0); Lymphocyte % 22.3 % (19-41); Mean Corp Hgb Conc 32.3 g/gl (32-36); Mean Corpuscular Hgb 35.9 pg (27.0-32.0); Mean Corpuscular Volume 111.2 fL (81-99); Mean Platelet Vol. 10.3 fl (6.2-12.0); Monocyte# 0.46 X10^3/uL; Monocyte% 6.6 % (0-10); Neutrophil % 67.4 % (47-70); Platelet Count 144 K/mm3 (150-450); RBC Distribution Width CV 13.7 % (11.6-14.6); RBC Distribution Width SD 52.9 fl (35.1-43.9); Red Blood Count 2.51 M/mm3 (4.2-5.4)
[2018-11-17 08:05] LABS: Bedside Glucose 96 mg/dL (70-110)
[2018-11-17 08:07] LABS: POSITIVE COUNT NO; POSITIVE DIFFERENTIAL NO; POSITIVE MORPHOLOGY NO
[2018-11-17] MEDS: Acetaminophen 325 MG Tablet 650 MG PO ×2 (08:12→21:41)
[2018-11-17 08:16] LABS: BUN 82 mg/dL (7-18); BUN/Creat Ratio 35.3 RATIO (10-20); Calcium,Total 7.8 mg/dL (8.5-10.1); Chloride 107 mmol/L (98-107); Creatinine, Serum 2.32 mg/dL (0.55-1.02); EST Glomerular Filtration Rate 22 mL/min (>60); Est Glom Filt Rate - Afr Amer 26 mL/min (>60); Estimated Creatinine Clearance 16.32 ml/min; Glucose 100 mg/dL (74-106); Potassium 3.7 mmol/L (3.5-5.1); Sodium Level 140 mmol/L (136-145)
[2018-11-17 08:17] LABS: Anion Gap 13 (5-15)
--- NOTE | 2018-11-17 08:24 | PCM.PN.CARD ---
Subjectve: Patient doing well overnight, no 24-hour events. Telemetry showed normal sinus rhythm with rare PVCs. No chest pain, right groin is clean/dry/intact. Hemoglobin is stable. Hemoglobin this morning is 9.0. Objective: Vital Signs Temp Pulse Resp BP Pulse Ox 98.8 F 76 15 159/63 H 96 11/17/18 04:07 11/17/18 07:55 11/17/18 04:07 11/17/18 04:07 11/17/18 04:07 Oxygen Flow Rate (L/min) 10 Oxygen Delivery Method Room Air Weight: 173 lb 1.006 oz Body Mass Index (BMI) 31.1 Finger Stick Blood Glucose 159 Intake and Output for Last 24 Hours 11/15/18 11/16/18 11/17/18 23:59 23:59 23:59 Intake Total 928 / 928 1695.4 / 1695.4 662 / 662 Output Total 775 / 775 2024 / 2024 350 / 350 Balance 153 / 153 -329.6 / -329.6 312 / 312 General: Awake, Alert, Oriented x 3 HEENT: PERRL, EOMI, Sclera Non Icteric Neck: Supple, Good ROM, No Lymph Node Enlargement Lungs: Clear to auscultation Cardiovascular: Regular Rhythm, Normal S1, Normal S2, No Murmurs, No Rubs, No Gallops Vascular: No Carotid Bruits, Normal Femoral Pulses, Normal Radial Pulses, Normal Dorsalis Pedal Pulse, Normal Posterior Tibial Pulses Abdomen: Bowel Sounds Present, Soft, Non Tender, No HSM, No Organomegaly Extremities: No Cyanosis, No Clubbing, No edema Neurological: No Focal Motor or Sensory Deficit 11/16/18 04:20: Hemoglobin A1c 5.4 11/17/18 07:45: WBC 7.0, RBC 2.51 L, Hgb 9.0 L, Hct 27.9 L, MCV 111.2 H, MCH 35.9 H, MCHC 32.3, RDW 13.7, RDW Differential 52.9 H, Plt Count 144 L, MPV 10.3, Immature Gran % (Auto) 0.400, Neut % (Auto) 67.4, Lymph % (Auto) 22.3, [place] % (Auto) 6.6, Eos % (Auto) 2.7, Baso % (Auto) 0.6, Absolute Neuts (auto) 4.7, Total Counted Not Reportable 11/17/18 07:45: Sodium 140, Potassium 3.7, Chloride 107, Carbon Dioxide 20.0 L, Anion Gap 13, BUN 82 H, Creatinine 2.32 H, Est GFR (MDRD) Af Amer 26 L, Est GFR (MDRD) Non-Af 22 L, BUN/Creatinine Ratio 35.3 H, Glucose 100, Calcium 7.8 L Rhythm: EKG: ECHO: Stress Test: Cardiac Cath: PCI: CT Surgery: Holter monitor: EPS: PPM: CXR: Chest CT Scan: Medical Necessity - Tobacco Use Smoking Status: Never smoker Assessment/Plan 1. Congestive heart failure: The patient has signs and symptoms of biventricular congestive heart failure. Echocardiogram shows an EF around 5 0%, with RVSP of 48 mmHg. The patient may have some challenges with IV diuresis given her chronic renal insufficiency and creatinine clearance of below 20. In addition I recommend that she reduce her atenolol down to 50 mg daily while she is stabilizing with congestive heart failure of new onset. In addition she will continue baby aspirin, Plavix. Given her chronic renal insufficiency she is a poor candidate for DEWEY inhibitors or ARB's. Eventually would like to transition her to M Dur/hydralazine for afterload reduction. Patient was able to lay down flat yesterday for a diagnostic coronary angiogram. This was done without an LV angiogram to conserve dye and protect her kidneys. This demonstrated an occluded left circumflex which was small, 2 tandem lesions in the mid LAD, calcified right coronary artery with nonobstructive proximal mid and distal disease with evidence of proximal posterior lateral stenosis in mid PDA stenosis as well. Any intervention was postponed to ensure the patient had no additional bleeding issues with her nose or from GI. Patient was switched from Brilinta to Plavix, and has been tolerating baby aspirin and Plavix well. She has had a small increase in her creatinine, but no chest pain. This may be a result of a combination of diuresis, stage IV renal disease, and exposure to IV contrast dye. This point I do not believe the patient is a good cardiovascular surgical candidate as it is doubtful that any bypass of the circumflex system could take place, as well as the location of the lesions in the LAD and the posterior lateral branch making revascularization somewhat challenging from a surgical standpoint. My preference would be for a staged procedure of her LAD followed in several weeks time with angioplasty of her proximal posterior lateral branch. We will start IV fluids this afternoon and switch her from Lasix IV to Lasix p.o. 40 mg a day. Would also recommend that we obtain a renal consult as the patient is teetering on needing hemodialysis regardless of whether she needs intervention or not. There is a high likelihood the patient may develop temporary or permanent renal insufficiency which is been thoroughly explained to the patient and her family. We will consult with the family regarding the timing of her intervention. Patient has a number of risk factors for coronary occlusive disease including her age, hypertension, diabetes, chronic renal insufficiency, and hypercholesterolemia. 2. Chronic renal insufficiency: Given the patient's chronic renal insufficiency as she is at high risk for temporary or permanent renal insufficiency from acute tubular necrosis from IV contrast dye exposure. Recommend no consultation for possible impending need for hemodialysis. 3. Hyperlipidemia: Recommend obtaining a fasting profile. Her LDL should be less than 70 given her diabetes and non-STEMI. 4. Thank you very much for the opportunity to participate in in the cardiac care of your patient. We will discuss with the family the options regarding the timing of intervention, but would not recommend discharge home until she has had her LAD repaired. Patient may be transferred to PCU once she is off her nitroglycerin drip. Code Visit Inpatient E&M: [id number] [facility] Hosp L2
--- NOTE | 2018-11-17 09:50 | PCM.PN.HOSP ---
Patient Problems: Active and Suspected Problems (Last Reviewed 06/07/18 @ 14:09 by Heike Pedraza) Acute coronary syndrome (Acute) Non-STEMI (non-ST elevated myocardial infarction) (Acute) Hypercholesterolemia (Acute) Congestive heart failure of unknown etiology (Acute) Abnormal EKG (Acute) Subjective: Patient seen and examined. She had an uneventful night and has no complaints. Review of systems otherwise negative. She has remained off of oxygen. Labs and vitals reviewed. Vitals/I&O's: Vital Signs Temp Pulse Resp BP Pulse Ox 98.8 F 76 15 159/63 H 96 11/17/18 04:07 11/17/18 07:55 11/17/18 04:07 11/17/18 04:07 11/17/18 04:07 Oxygen Flow Rate (L/min) 10 Oxygen Delivery Method Room Air Weight: 173 lb 1.006 oz Body Mass Index (BMI) 31.1 Finger Stick Blood Glucose 159 Intake and Output for Last 24 Hours 11/15/18 11/16/18 11/17/18 23:59 23:59 23:59 Intake Total 928 / 928 1695.4 / 1695.4 662 / 662 Output Total 775 / 775 2024 / 2024 350 / 350 Balance 153 / 153 -329.6 / -329.6 312 / 312 General: Alert, Oriented x3, Cooperative, No apparent distress HEENT: Atraumatic, PERRLA, EOMI, Normocephalic Oral: Moist Mucosa, - - scanty dried blood in right nasal mucosa Neck: Supple, No JVD, Negative Carotid Bruits Lungs: - - clear to auscultation. On room air Cardiovascular: Regular rate, Regular Rhythm, Normal S1, Normal S2, No murmurs Abdomen: Bowel Sounds Present, Soft, Non Tender, Non-Distended, No Hepato-splenomegaly Extremities: No clubbing, No cyanosis, No edema, Capillary Refill Less than 3 Seconds Skin: - - superficial ulceration of right lateral LE Musculoskeletal: No Tenderness to Palpation of Joints or Extremities Lymphatic: No Cervical, Supraclavicular, or Inguinal Adenopathy Neurological: Cranial nerves II-XII grossly intact, Neuro grossly intact, Motor Exam 5/5 strength throughout Psych/Mental Status: Normal Affect, Appropriate, Alert and oriented to time, place, person, mood and affect Laboratory Results 11/16/18 11:12: POC Glucose 139 H 11/16/18 17:06: POC Glucose 115 H 11/16/18 21:46: POC Glucose 190 H 11/17/18 07:45: WBC 7.0, RBC 2.51 L, Hgb 9.0 L, Hct 27.9 L, MCV 111.2 H, MCH 35.9 H, MCHC 32.3, RDW 13.7, RDW Differential 52.9 H, Plt Count 144 L, MPV 10.3, Immature Gran % (Auto) 0.400, Neut % (Auto) 67.4, Lymph % (Auto) 22.3, [place] % (Auto) 6.6, Eos % (Auto) 2.7, Baso % (Auto) 0.6, Absolute Neuts (auto) 4.7, Absolute Lymphs (auto) 1.56, Total Counted Not Reportable 11/17/18 07:45: Sodium 140, Potassium 3.7, Chloride 107, Carbon Dioxide 20.0 L, Anion Gap 13, BUN 82 H, Creatinine 2.32 H, Estim Creat Clear Calc 16.32, Est GFR (MDRD) Af Amer 26 L, Est GFR (MDRD) Non-Af 22 L, BUN/Creatinine Ratio 35.3 H, Glucose 100, Calcium 7.8 L 11/17/18 07:49: POC Glucose 96 Current Medications Acetaminophen (Tylenol) 650 mg PO Q6H PRN PRN PRN Reason: PAIN Last Admin: 11/17/18 08:12 Dose: 650 mg Aspirin (Aspirin, Baby) 81 mg PO DAILY@0800 [facility] Last Admin: 11/17/18 07:56 Dose: 81 mg Atenolol (Tenormin (Beta Elvia)) 50 mg PO DAILY [facility] Last Admin: 11/17/18 07:57 Dose: 50 mg Atorvastatin Calcium (Lipitor) 80 mg PO QHS [facility] Last Admin: 11/16/18 21:49 Dose: 80 mg Azathioprine (Imuran) 100 mg PO DAILY@0800 [facility] Last Admin: 11/17/18 07:56 Dose: 100 mg Budesonide (Budesonide Ec) 3 mg PO DAILY [facility] Last Admin: 11/17/18 07:55 Dose: 3 mg Clopidogrel Bisulfate (Plavix) 75 mg PO DAILY [facility] Last Admin: 11/17/18 07:56 Dose: 75 mg Dextrose (D50w Syringe) 0 gm IV X1 PRN; Protocol PRN Reason: Hypoglycemia Furosemide (Lasix) 40 mg PO DAILY [facility] Last Admin: 11/17/18 08:50 Dose: Not Given Glucagon () 1 mg IM .X1 PRN PRN Reason: Hypoglycemia Heparin Sodium (Beef Lung) (Heparin 500 Unit/5 Ml (100/Ml)) 500 unit IV UD PRN PRN Reason: HEPARIN FLUSH Hydralazine HCl (Apresoline) 10 mg PO BID [facility] Last Admin: 11/17/18 07:55 Dose: 10 mg Sodium Chloride () 250 mls @ 15 mls/hr IV .[id number] PRN PRN Reason: SALINE FLUSH Last Admin: 11/15/18 10:12 Dose: 15 mls/hr Sodium Chloride () 1,000 mls @ 0 mls/hr IV .Q0M [facility] Ampicillin Sodium/Sulbactam (Sodium 3 gm/ Sodium Chloride) 112 mls @ 150 mls/hr IV Q12 [facility] Last Admin: 11/17/18 07:57 Dose: 150 mls/hr Sodium Chloride () 1,000 mls @ 75 mls/hr IV .[id number] [facility] Insulin Glargine (Lantus ([facility])) 45 units SC BREAKFAST [facility] Last Admin: 11/17/18 07:58 Dose: 45 u Insulin Human Lispro (Humalog Kwikpen ([facility])) 0 unit SQ ACHS [facility]; Protocol Last Admin: 11/17/18 07:54 Dose: Not Given Isosorbide Mononitrate (Imdur) 60 mg PO DAILY [facility] Last Admin: 11/17/18 07:55 Dose: 60 mg Labetalol HCl (Trandate) 5 mg IV X1 PRN PRN Reason: SBP > 160 prior to sheath pull Stop: 11/18/18 08:46 Magnesium Hydroxide (Milk Of Magnesia) 30 ml PO DAILY PRN PRN PRN Reason: Constipation Metoprolol Tartrate (Lopressor (Beta Elvia)) 2.5 mg IV Q6H PRN PRN Reason: BLOOD PRESSURE ELEVATION Last Admin: 11/15/18 14:41 Dose: 2.5 mg Nitroglycerin (Nitrostat) 0.4 mg SUBLINGUAL Q5M PRN PRN Reason: CARDIAC/CHEST PAIN Nutritional Formula (Lactose Free) (Glucerna Shake) 120 ml PO 4X/DAY [facility] Last Admin: 11/17/18 08:01 Dose: 120 ml Ondansetron HCl (Zofran) 4 mg IV Q6H PRN PRN PRN Reason: NAUSEA Last Admin: 11/15/18 16:25 Dose: 4 mg Sodium Chloride () 5 - 15 ml IV UD PRN PRN Reason: SALINE FLUSH Last Admin: 11/17/18 07:55 Dose: 15 ml Sodium Chloride ([place] Nasal [place]) 2 spray NASAL TID PRN PRN PRN Reason: NASAL DRYNESS Last Admin: 11/17/18 07:57 Dose: 2 spray Medical Necessity - Tobacco Use Smoking Status: Never smoker Assessment/Plan All Active Problems (Last Reviewed 06/07/18 @ 14:09 by Heike Pedraza) Acute coronary syndrome (Acute) Non-STEMI (non-ST elevated myocardial infarction) (Acute) Hypercholesterolemia (Acute) Congestive heart failure of unknown etiology (Acute) Abnormal EKG (Acute) 1. 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 per cardiology, if hemoglobin remained stable and there is no further epistasis on dual antiplatelet therapy, will consider staged PCI of proximal/mid LAD followed by staged PCI of PL and PDA. Would consider staged PCI versus CABG given location of lesions and doubtful ability to bypass PL branch. 2D echo as under 2. 2. Acute diastolic heart failure BNP was >2000. CXR as under 1 2D echo done showed moderate concentric LVH with EF of 50%, stage I diastolic dysfunction and mild hypokinesis of mid anteroseptal and lateral basal pillai. RVSP was 48 mmHg. on IV lasix 40mg bid; in positive balance by 312mls today; urine output was 2L over last 24 hours, with negative balance of 329mls fluid restriction to 1500cc every 24 hours imdur and hydralazine added on per cardiology 3. Acute hypoxic respiratory failure due to acute diastolic heart failure and NSTEMI now on room air. continue duonebs breathing treatments Been mildly tachypneic overnight breathing in the low 20s. still on 10L of oxygen by humified face mask, though she looks much improved titrate oxygen to maintain sats at >92% breathing treatments with duonebs 4. Severe sepsis possibly due to cellulitis SIRS criteria is now 0/4 on IV unasyn 5. Epistaxis developed epistaxis of right nostril, and required cautery by ENT surgeon. resolved. ocean mist spray for nostrils 6. CKD 4: Cr is 2.32 today, with eGFR of 25, which is around her baseline. will monitor Cr 7. Acute blood loss anemia: Hb fell from 10.6 to 8.6, likely due to epistaxis. Hb today is 9 WIll monitor. 8. Hypertension: on atenolol 50mg daily. Fairly controlled for age. WIll monitor. Imdur and hydralazine added on o./a of heart failure. 9. Diabetes mellitus: A1C 5.4. On insulin glargine 45 units subcu. Insulin sliding scale. Accu-Cheks AC at bedtime. 10. Anion gap metabolic acidosis: resolved. DVT prophylaxis: SCDs o/a of epistaxis. Code Visit Inpatient E&M: 39185 Subs Hosp L3
--- NOTE | 2018-11-17 10:02 | PN_ITS ---
Patient Problems: Active and Suspected Problems (Last Reviewed 06/07/18 @ 14:09 by Heike Pedraza) Acute coronary syndrome (Acute) Non-STEMI (non-ST elevated myocardial infarction) (Acute) Hypercholesterolemia (Acute) Congestive heart failure of unknown etiology (Acute) Abnormal EKG (Acute) Subjective: Patient seen and examined. She had an uneventful night and has no complaints. Review of systems otherwise negative. She has remained off of oxygen. Labs and vitals reviewed. Vitals/I&O's: Vital Signs Temp Pulse Resp BP Pulse Ox 98.8 F 76 15 159/63 H 96 11/17/18 04:07 11/17/18 07:55 11/17/18 04:07 11/17/18 04:07 11/17/18 04:07 Oxygen Flow Rate (L/min) 10 Oxygen Delivery Method Room Air Weight: 173 lb 1.006 oz Body Mass Index (BMI) 31.1 Finger Stick Blood Glucose 159 Intake and Output for Last 24 Hours 11/15/18 11/16/18 11/17/18 23:59 23:59 23:59 Intake Total 928 / 928 1695.4 / 1695.4 662 / 662 Output Total 775 / 775 2024 / 2024 350 / 350 Balance 153 / 153 -329.6 / -329.6 312 / 312 General: Alert, Oriented x3, Cooperative, No apparent distress HEENT: Atraumatic, PERRLA, EOMI, Normocephalic Oral: Moist Mucosa, - - scanty dried blood in right nasal mucosa Neck: Supple, No JVD, Negative Carotid Bruits Lungs: - - clear to auscultation. On room air Cardiovascular: Regular rate, Regular Rhythm, Normal S1, Normal S2, No murmurs Abdomen: Bowel Sounds Present, Soft, Non Tender, Non-Distended, No Hepato- splenomegaly Extremities: No clubbing, No cyanosis, No edema, Capillary Refill Less than 3 Seconds Skin: - - superficial ulceration of right lateral LE Musculoskeletal: No Tenderness to Palpation of Joints or Extremities Lymphatic: No Cervical, Supraclavicular, or Inguinal Adenopathy Neurological: Cranial nerves II-XII grossly intact, Neuro grossly intact, Motor Exam 5/5 strength throughout Psych/Mental Status: Normal Affect, Appropriate, Alert and oriented to time, place, person, mood and affect Laboratory Results 11/16/18 11:12: POC Glucose 139 H 11/16/18 17:06: POC Glucose 115 H 11/16/18 21:46: POC Glucose 190 H 11/17/18 07:45: WBC 7.0, RBC 2.51 L, Hgb 9.0 L, Hct 27.9 L, MCV 111.2 H, MCH 35.9 H, MCHC 32.3, RDW 13.7, RDW Differential 52.9 H, Plt Count 144 L, MPV 10.3, Immature Gran % (Auto) 0.400, Neut % (Auto) 67.4, Lymph % (Auto) 22.3, [place] % (Auto) 6.6, Eos % (Auto) 2.7, Baso % (Auto) 0.6, Absolute Neuts (auto) 4.7, Absolute Lymphs (auto) 1.56, Total Counted Not Reportable 11/17/18 07:45: Sodium 140, Potassium 3.7, Chloride 107, Carbon Dioxide 20.0 L, Anion Gap 13, BUN 82 H, Creatinine 2.32 H, Estim Creat Clear Calc 16.32, Est GFR (MDRD) Af Amer 26 L, Est GFR (MDRD) Non-Af 22 L, BUN/Creatinine Ratio 35.3 H, Glucose 100, Calcium 7.8 L 11/17/18 07:49: POC Glucose 96 Current Medications Acetaminophen (Tylenol) 650 mg PO Q6H PRN PRN PRN Reason: PAIN Last Admin: 11/17/18 08:12 Dose: 650 mg Aspirin (Aspirin, Baby) 81 mg PO DAILY@0800 [facility] Last Admin: 11/17/18 07:56 Dose: 81 mg Atenolol (Tenormin (Beta Elvia)) 50 mg PO DAILY [facility] Last Admin: 11/17/18 07:57 Dose: 50 mg Atorvastatin Calcium (Lipitor) 80 mg PO QHS [facility] Last Admin: 11/16/18 21:49 Dose: 80 mg Azathioprine (Imuran) 100 mg PO DAILY@0800 [facility] Last Admin: 11/17/18 07:56 Dose: 100 mg Budesonide (Budesonide Ec) 3 mg PO DAILY [facility] Last Admin: 11/17/18 07:55 Dose: 3 mg Clopidogrel Bisulfate (Plavix) 75 mg PO DAILY [facility] Last Admin: 11/17/18 07:56 Dose: 75 mg Dextrose (D50w Syringe) 0 gm IV X1 PRN; Protocol PRN Reason: Hypoglycemia Furosemide (Lasix) 40 mg PO DAILY [facility] Last Admin: 11/17/18 08:50 Dose: Not Given Glucagon () 1 mg IM .X1 PRN PRN Reason: Hypoglycemia Heparin Sodium (Beef Lung) (Heparin 500 Unit/5 Ml (100/Ml)) 500 unit IV UD PRN PRN Reason: HEPARIN FLUSH Hydralazine HCl (Apresoline) 10 mg PO BID [facility] Last Admin: 11/17/18 07:55 Dose: 10 mg Sodium Chloride () 250 mls @ 15 mls/hr IV .[id number] PRN PRN Reason: SALINE FLUSH Last Admin: 11/15/18 10:12 Dose: 15 mls/hr Sodium Chloride () 1,000 mls @ 0 mls/hr IV .Q0M [facility] Ampicillin Sodium/Sulbactam (Sodium 3 gm/ Sodium Chloride) 112 mls @ 150 mls/hr IV Q12 [facility] Last Admin: 11/17/18 07:57 Dose: 150 mls/hr Sodium Chloride () 1,000 mls @ 75 mls/hr IV .[id number] [facility] Insulin Glargine (Lantus ([facility])) 45 units SC BREAKFAST [facility] Last Admin: 11/17/18 07:58 Dose: 45 u Insulin Human Lispro (Humalog Kwikpen ([facility])) 0 unit SQ ACHS [facility]; Protocol Last Admin: 11/17/18 07:54 Dose: Not Given Isosorbide Mononitrate (Imdur) 60 mg PO DAILY [facility] Last Admin: 11/17/18 07:55 Dose: 60 mg Labetalol HCl (Trandate) 5 mg IV X1 PRN PRN Reason: SBP > 160 prior to sheath pull Stop: 11/18/18 08:46 Magnesium Hydroxide (Milk Of Magnesia) 30 ml PO DAILY PRN PRN PRN Reason: Constipation Metoprolol Tartrate (Lopressor (Beta Elvia)) 2.5 mg IV Q6H PRN PRN Reason: BLOOD PRESSURE ELEVATION Last Admin: 11/15/18 14:41 Dose: 2.5 mg Nitroglycerin (Nitrostat) 0.4 mg SUBLINGUAL Q5M PRN PRN Reason: CARDIAC/CHEST PAIN Nutritional Formula (Lactose Free) (Glucerna Shake) 120 ml PO 4X/DAY [facility] Last Admin: 11/17/18 08:01 Dose: 120 ml Ondansetron HCl (Zofran) 4 mg IV Q6H PRN PRN PRN Reason: NAUSEA Last Admin: 11/15/18 16:25 Dose: 4 mg Sodium Chloride () 5 - 15 ml IV UD PRN PRN Reason: SALINE FLUSH Last Admin: 11/17/18 07:55 Dose: 15 ml Sodium Chloride ([place] Nasal [place]) 2 spray NASAL TID PRN PRN PRN Reason: NASAL DRYNESS Last Admin: 11/17/18 07:57 Dose: 2 spray Medical Necessity - Tobacco Use Smoking Status: Never smoker Assessment/Plan All Active Problems (Last Reviewed 06/07/18 @ 14:09 by Heike Pedraza) Acute coronary syndrome (Acute) Non-STEMI (non-ST elevated myocardial infarction) (Acute) Hypercholesterolemia (Acute) Congestive heart failure of unknown etiology (Acute) Abnormal EKG (Acute) 1. 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 * per cardiology, if hemoglobin remained stable and there is no further epistasis on dual antiplatelet therapy, will consider staged PCI of proximal/mid LAD followed by staged PCI of PL and PDA. Would consider staged PCI versus CABG given location of lesions and doubtful ability to bypass PL branch. * 2D echo as under 2. * * 2. Acute diastolic heart failure * BNP was >2000. CXR as under 1 * 2D echo done showed moderate concentric LVH with EF of 50%, stage I diastolic dysfunction and mild hypokinesis of mid anteroseptal and lateral basal pillai. RVSP was 48 mmHg. * on IV lasix 40mg bid; in positive balance by 312mls today; urine output was 2L over last 24 hours, with negative balance of 329mls * fluid restriction to 1500cc every 24 hours * imdur and hydralazine added on per cardiology * 3. Acute hypoxic respiratory failure due to acute diastolic heart failure and NSTEMI * now on room air. * continue duonebs breathing treatments * Been mildly tachypneic overnight breathing in the low 20s. * still on 10L of oxygen by humified face mask, though she looks much improved * titrate oxygen to maintain sats at >92% * breathing treatments with duonebs * 4. Severe sepsis possibly due to cellulitis * SIRS criteria is now 0/4 * on IV unasyn * 5. Epistaxis * developed epistaxis of right nostril, and required cautery by ENT surgeon. * resolved. * ocean mist spray for nostrils * 6. CKD 4: * Cr is 2.32 today, with eGFR of 25, which is around her baseline. * will monitor Cr * 7. Acute blood loss anemia: * Hb fell from 10.6 to 8.6, likely due to epistaxis. * Hb today is 9 * WIll monitor. * 8. Hypertension: on atenolol 50mg daily. Fairly controlled for age. WIll monitor. Imdur and hydralazine added on o./a of heart failure. 9. Diabetes mellitus: A1C 5.4. On insulin glargine 45 units subcu. Insulin sliding scale. Accu-Cheks AC at bedtime. 10. Anion gap metabolic acidosis: resolved. DVT prophylaxis: SCDs o/a of epistaxis. Code Visit Inpatient E&M: [id number] Subs Hosp L3
[2018-11-17] MEDS: 0.9% Normal Saline 1,000 ML 75 ML IV (10:21)
[2018-11-17] MEDS: Insulin Lispro 100 UNIT/ML INSULN.PEN SQ ×2 (11:27→21:38)
[2018-11-17 11:36] LABS: Bedside Glucose 230 mg/dL (70-110)
--- NOTE | 2018-11-17 12:05 | NURSING ---
report called to lula RN PCu at 1200
[2018-11-17 17:05] LABS: Bedside Glucose 146 mg/dL (70-110)
[2018-11-17] MEDS: Atorvastatin Calcium 80 MG Tablet PO (21:37)
[2018-11-18] VITALS (15 sets, daily range): BP systolic 133–158; BP diastolic 58–72; PULSE 74–93; RESP 16–20; TEMP 36.9–37.5; O2SAT 94–96
[2018-11-18 00:05] LABS: Bedside Glucose 186 mg/dL (70-110)
--- NOTE | 2018-11-18 04:53 | EKG12_ITS ---
Test Reason : AM EKG Blood Pressure : / mmHG Vent. Rate : 079 BPM Atrial Rate : 079 BPM P-R Int : 134 ms QRS Dur : 118 ms QT Int : 428 ms P-R-T Axes : 011 009 -58 degrees QTc Int : 490 ms Normal sinus rhythm Possible Left atrial enlargement Right bundle branch block T wave abnormality, consider inferolateral ischemia Abnormal ECG Confirmed by ИРИНА BRYSON, PADMA ([id number]), food expeditor OPHELIA SIERRA ([id number]) on 11/23/2018 10:19:21 AM Referred By: Eddy Taylor Confirmed By:PADMA GIFFORD MD
[2018-11-18] MEDS: Acetaminophen 325 MG Tablet 650 MG PO ×2 (05:22→22:11)
[2018-11-18 06:25] LABS: Anion Gap 15 (5-15); BUN 90 mg/dL (7-18); BUN/Creat Ratio 35.4 RATIO (10-20); Calcium,Total 7.8 mg/dL (8.5-10.1); Chloride 108 mmol/L (98-107); Creatinine, Serum 2.54 mg/dL (0.55-1.02); EST Glomerular Filtration Rate 20 mL/min (>60); Est Glom Filt Rate - Afr Amer 24 mL/min (>60); Glucose 98 mg/dL (74-106); Potassium 3.8 mmol/L (3.5-5.1); Sodium Level 142 mmol/L (136-145)
[2018-11-18 06:34] LABS: Absolute Lymphocyte Count 2.17 X10^3/ul (0.83-4.51); Absolute Neutrophil Count 4.2 X10^3/uL (2.0-7.7); Basophil# 0.04 X10^3/uL; Basophil% 0.6 % (0-1); Eosinophil# 0.25 X10^3/uL; Eosinophils% 3.5 % (0-5); Hematocrit 28.2 % (37-47); Lymphocyte # 2.17 X10^3/ul (4.0); Lymphocyte % 30.2 % (19-41); Mean Corp Hgb Conc 31.9 g/gl (32-36); Mean Corpuscular Volume 112.8 fL (81-99); Mean Platelet Vol. 10.9 fl (6.2-12.0); Monocyte# 0.53 X10^3/uL; Monocyte% 7.4 % (0-10); Neutrophil # 4.16 X10^3/uL (2.7-7.7); Neutrophil % 57.7 % (47-70); Platelet Count 161 K/mm3 (150-450); RBC Distribution Width CV 14.2 % (11.6-14.6); RBC Distribution Width SD 54.6 fl (35.1-43.9); White Blood Count 7.2 K/mm3 (4.4-11.0)
[2018-11-18 06:39] LABS: POSITIVE COUNT NO; POSITIVE DIFFERENTIAL NO; POSITIVE MORPHOLOGY NO
[2018-11-18 07:24] LABS: Partial Thromboplast Time 41.4 Seconds (24.1-36.2)
[2018-11-18 07:26] LABS: Bedside Glucose 88 mg/dL (70-110)
[2018-11-18 08:04] LABS: International Normalized Ratio 1.2; Prothrombin Time (Protime)PT. 15.3 SECONDS (11.7-14.9)
[2018-11-18] MEDS: 0.9% Normal Saline 1,000 ML 75 ML IV ×2 (08:34→21:35)
[2018-11-18] MEDS: 0.9% NaCl Peripheral Flush Adult/Peds IV (08:34)
[2018-11-18] MEDS: Dextrose 50%-Water 25 GM/50 ML DISP.SYRIN IV (08:38)
[2018-11-18] MEDS: Ondansetron 4 MG/2 ML Vial IV ×2 (08:57→18:47)
[2018-11-18] MEDS: azaTHIOprine 50 MG Tablet 100 MG PO (11:07)
[2018-11-18] MEDS: Aspirin 81 MG TAB.CHEW PO (11:07)
[2018-11-18] MEDS: hydrALAZINE 10 MG Tablet PO (11:08)
[2018-11-18] MEDS: Budesonide 3 MG CAPSULE.EC PO (11:08)
[2018-11-18] MEDS: Isosorbide Mononitrate 60 MG Tablet PO (11:09)
[2018-11-18] MEDS: Atenolol 50 MG Tablet PO (11:09)
[2018-11-18] MEDS: Clopidogrel Bisulfate 75 MG Tablet PO (11:09)
[2018-11-18] MEDS: Glucerna Shake 120 ML LIQUID PO (11:17)
[2018-11-18] MEDS: Furosemide 40 MG Tablet PO (11:18)
--- NOTE | 2018-11-18 12:13 | PCM.PN.CARD ---
Subjectve: Patient doing okay this morning, did have an episode of nosebleeding which was self terminating. Has some mild nausea. No chest pain however. Creatinine seems to be worsening Objective: Vital Signs Temp Pulse Resp BP Pulse Ox 98.4 F 91 17 152/70 H 95 11/18/18 08:36 11/18/18 11:39 11/18/18 08:36 11/18/18 08:36 11/18/18 08:36 Oxygen Flow Rate (L/min) 10 Oxygen Delivery Method Room Air Weight: 174 lb 13.225 oz Body Mass Index (BMI) 31.1 Finger Stick Blood Glucose 159 Intake and Output for Last 24 Hours 11/16/18 11/17/18 11/18/18 23:59 23:59 23:59 Intake Total 1695.4 / 1695.4 882 / 882 1205 / 1205 Output Total 2024 / 2024 850 / 850 Balance -329.6 / -329.6 32 / 32 1205 / 1205 General: Awake, Alert, Oriented x 3 HEENT: PERRL, EOMI, Sclera Non Icteric Neck: Supple, Good ROM, No Lymph Node Enlargement Lungs: Clear to auscultation Cardiovascular: Regular Rhythm, Normal S1, Normal S2, No Murmurs, No Rubs, No Gallops Vascular: No Carotid Bruits, Normal Femoral Pulses, Normal Radial Pulses, Normal Dorsalis Pedal Pulse, Normal Posterior Tibial Pulses Abdomen: Bowel Sounds Present, Soft, Non Tender, No HSM, No Organomegaly Extremities: No Cyanosis, No Clubbing, No edema Neurological: No Focal Motor or Sensory Deficit 11/18/18 05:10: WBC 7.2, RBC 2.50 L, Hgb 9.0 L, Hct 28.2 L, MCV 112.8 H, MCH 36.0 H, MCHC 31.9 L, RDW 14.2, RDW Differential 54.6 H, Plt Count 161, MPV 10.9, Immature Gran % (Auto) 0.600, Neut % (Auto) 57.7, Lymph % (Auto) 30.2, [place] % (Auto) 7.4, Eos % (Auto) 3.5, Baso % (Auto) 0.6, Absolute Neuts (auto) 4.2, Total Counted Not Reportable 11/18/18 05:10: Sodium 142, Potassium 3.8, Chloride 108 H, Carbon Dioxide 19.0 L, Anion Gap 15, BUN 90 H, Creatinine 2.54 H, Est GFR (MDRD) Af Amer 24 L, Est GFR (MDRD) Non-Af 20 L, BUN/Creatinine Ratio 35.4 H, Glucose 98, Calcium 7.8 L 11/18/18 05:10: PT 15.3 H, INR 1.2, APTT 41.4 H Rhythm: EKG: ECHO: Stress Test: Cardiac Cath: PCI: CT Surgery: Holter monitor: EPS: PPM: CXR: Chest CT Scan: Medical Necessity - Tobacco Use Smoking Status: Never smoker Assessment/Plan 1. Congestive heart failure: The patient has signs and symptoms of biventricular congestive heart failure. Echocardiogram shows an EF around 5 0%, with RVSP of 48 mmHg. The patient may have some challenges with IV diuresis given her chronic renal insufficiency and creatinine clearance of below 20. In addition I recommend that she reduce her atenolol down to 50 mg daily while she is stabilizing with congestive heart failure of new onset. In addition she will continue baby aspirin, Plavix. Given her chronic renal insufficiency she is a poor candidate for DEWEY inhibitors or ARB's. Eventually would like to transition her to M Dur/hydralazine for afterload reduction. Patient underwent angiogram on 11/16/18 after she was diuresed for congestive heart failure and was able to lay down flat. This was done without an LV angiogram to conserve dye and protect her kidneys. This demonstrated an occluded left circumflex which was small, 2 tandem lesions in the mid LAD, calcified right coronary artery with nonobstructive proximal mid and distal disease with evidence of proximal posterior lateral stenosis in mid PDA stenosis as well. Any intervention was postponed to ensure the patient had no additional bleeding issues with her nose or from GI. Patient was switched from Brilinta to Plavix, and has been tolerating baby aspirin and Plavix well. She has had a small increase in her creatinine, but no chest pain. Creatinine seems to be worsening day after day suggesting either we are revealing what her true creatinine is, or she has had some component of ATN after diuresis and minimal IV contrast dye exposure. This may be a result of a combination of diuresis, stage IV renal disease, and exposure to IV contrast dye. This point I do not believe the patient is a good cardiovascular surgical candidate as it is doubtful that any bypass of the circumflex system could take place, as well as the location of the lesions in the LAD and the posterior lateral branch making revascularization somewhat challenging from a surgical standpoint. My preference would be for a staged procedure of her LAD followed in several weeks time with angioplasty of her proximal posterior lateral branch. Patient has had IV fluids for 2 days time, and despite this her creatinine appears to be worsening. Recommend increasing her hydralazine to 25 mill grams p.o. twice daily for her hypertension and for afterload reduction. Would also recommend that we obtain a renal consult as the patient is teetering on needing hemodialysis regardless of whether she needs intervention or not. There is a high likelihood the patient may develop temporary or permanent renal insufficiency which is been thoroughly explained to the patient and her family. We will consult with the family regarding the timing of her intervention. Would not recommend PCI today given her worsening renal function. We will reassess timing of intervention on Wednesday. If the patient proceeds to hemodialysis over the weekend, we will take her back to the Front Desk Agent for elective PCI. Should a dialysis catheter be needed, would recommend placing it either subclavian, or left femoral vein. This will allow us to proceed with intervention via the right groin. Patient has a number of risk factors for coronary occlusive disease including her age, hypertension, diabetes, chronic renal insufficiency, and hypercholesterolemia. 2. Chronic renal insufficiency: Given the patient's chronic renal insufficiency as she is at high risk for temporary or permanent renal insufficiency from acute tubular necrosis from IV contrast dye exposure. Recommend renal with Dr. Pearson consultation for possible impending need for hemodialysis. 3. Hyperlipidemia: Recommend obtaining a fasting profile. Her LDL should be less than 70 given her diabetes and non-STEMI. 4. Thank you very much for the opportunity to participate in in the cardiac care of your patient. We will discuss with the family the options regarding the timing of intervention, but would not recommend discharge home until she has had her LAD repaired. Code Visit Inpatient E&M: 04097 Subs Hosp L2
--- NOTE | 2018-11-18 12:18 | PN.CARD_ITS ---
Subjectve: Patient doing okay this morning, did have an episode of nosebleeding which was self terminating. Has some mild nausea. No chest pain however. Creatinine seems to be worsening Objective: Vital Signs Temp Pulse Resp BP Pulse Ox 98.4 F 91 17 152/70 H 95 11/18/18 08:36 11/18/18 11:39 11/18/18 08:36 11/18/18 08:36 11/18/18 08:36 Oxygen Flow Rate (L/min) 10 Oxygen Delivery Method Room Air Weight: 174 lb 13.225 oz Body Mass Index (BMI) 31.1 Finger Stick Blood Glucose 159 Intake and Output for Last 24 Hours 11/16/18 11/17/18 11/18/18 23:59 23:59 23:59 Intake Total 1695.4 / 1695.4 882 / 882 1205 / 1205 Output Total 2024 / 2024 850 / 850 Balance -329.6 / -329.6 32 / 32 1205 / 1205 General: Awake, Alert, Oriented x 3 HEENT: PERRL, EOMI, Sclera Non Icteric Neck: Supple, Good ROM, No Lymph Node Enlargement Lungs: Clear to auscultation Cardiovascular: Regular Rhythm, Normal S1, Normal S2, No Murmurs, No Rubs, No Gallops Vascular: No Carotid Bruits, Normal Femoral Pulses, Normal Radial Pulses, Normal Dorsalis Pedal Pulse, Normal Posterior Tibial Pulses Abdomen: Bowel Sounds Present, Soft, Non Tender, No HSM, No Organomegaly Extremities: No Cyanosis, No Clubbing, No edema Neurological: No Focal Motor or Sensory Deficit 11/18/18 05:10: WBC 7.2, RBC 2.50 L, Hgb 9.0 L, Hct 28.2 L, MCV 112.8 H, MCH 36.0 H, MCHC 31.9 L, RDW 14.2, RDW Differential 54.6 H, Plt Count 161, MPV 10.9, Immature Gran % (Auto) 0.600, Neut % (Auto) 57.7, Lymph % (Auto) 30.2, [place] % (Auto) 7.4, Eos % (Auto) 3.5, Baso % (Auto) 0.6, Absolute Neuts (auto) 4.2, Total Counted Not Reportable 11/18/18 05:10: Sodium 142, Potassium 3.8, Chloride 108 H, Carbon Dioxide 19.0 L , Anion Gap 15, BUN 90 H, Creatinine 2.54 H, Est GFR (MDRD) Af Amer 24 L, Est GFR (MDRD) Non-Af 20 L, BUN/Creatinine Ratio 35.4 H, Glucose 98, Calcium 7.8 L 11/18/18 05:10: PT 15.3 H, INR 1.2, APTT 41.4 H Rhythm: EKG: ECHO: Stress Test: Cardiac Cath: PCI: CT Surgery: Holter monitor: EPS: PPM: CXR: Chest CT Scan: Medical Necessity - Tobacco Use Smoking Status: Never smoker Assessment/Plan 1. Congestive heart failure: The patient has signs and symptoms of biventricular congestive heart failure. Echocardiogram shows an EF around 5 0%, with RVSP of 48 mmHg. The patient may have some challenges with IV diuresis given her chronic renal insufficiency and creatinine clearance of below 20. In addition I recommend that she reduce her atenolol down to 50 mg daily while s he is stabilizing with congestive heart failure of new onset. In addition she will continue baby aspirin, Plavix. Given her chronic renal insufficiency she is a poor candidate for DEWEY inhibitors or ARB's. Eventually would like to transition her to M Dur/hydralazine for afterload reduction. Patient underwent angiogram on 11/16/18 after she was diuresed for congestive heart failure and was able to lay down flat. This was done without an LV angiogram to conserve dye and protect her kidneys. This demonstrated an occluded left circumflex which was small, 2 tandem lesions in the mid LAD, calci fied right coronary artery with nonobstructive proximal mid and distal disease with evidence of proximal posterior lateral stenosis in mid PDA stenosis as well. Any intervention was postponed to ensure the patient had no additional bleeding issues with her nose or from GI. Patient was switched from Brilinta to Plavix, and has been tolerating baby aspirin and Plavix well. She has had a small increase in her creatinine, but no chest pain. Creatinine seems to be worsening day after day suggesting either we are revealing what her true creatinine is, or she has had some component of ATN after diuresis and minimal IV contrast dye exposure. This may be a result of a combination of diuresis, stage IV renal disease, and exposure to IV contrast dye. This point I do not believe the patient is a good cardiovascular surgical candidate as it is doubtful that any bypass of the circumflex system could take place, as well as the location of the lesions in the LAD and the posterior lateral branch making revascularization somewhat challenging from a surgical standpoint. My preference would be for a staged procedure of her LAD followed in several weeks time with angioplasty of her proximal posterior lateral branch. Patient has had IV fluids for 2 days time, and despite this her creatinine appears to be worsening. Recommend increasing her hydralazine to 25 mill grams p.o. twice daily for her hypertension and for afterload reduction. Would also recommend that we obtain a renal consult as the patient is teetering on needing hemodialysis regardless of whether she needs intervention or not. There is a high likelihood the patient may develop temporary or permanent renal insufficiency which is been thoroughly explained to the patient and her family. We will consult with the family regarding the timing of her intervention. Would not recommend PCI today given her worsening renal function. We will reassess timing of intervention on Wednesday. If the patient proceeds to hemodialysis over the weekend, we will take her back to the [facility] for elective PCI. Should a dialysis catheter be needed, would recommend placing it either subclavian, or left femoral vein. This will allow us to proceed with intervention via the right groin. Patient has a number of risk factors for coronary occlusive disease including her age, hypertension, diabetes, chronic renal insufficiency, and hyper cholesterolemia. 2. Chronic renal insufficiency: Given the patient's chronic renal insufficiency as she is at high risk for temporary or permanent renal insufficiency from acute tubular necrosis from IV contrast dye exposure. Recommend renal with Dr. Pearson consultation for possible impending need for hemodialysis. 3. Hyperlipidemia: Recommend obtaining a fasting profile. Her LDL should be less than 70 given her diabetes and non-STEMI. 4. Thank you very much for the opportunity to participate in in the cardiac care of your patient. We will discuss with the family the options regarding the timing of intervention, but would not recommend discharge home until she has had her LAD repaired. Code Visit Inpatient E&M: 12406 Subs Hosp L2
[2018-11-18] MEDS: hydrALAZINE 25 MG Tablet PO ×2 (13:51→22:10)
--- NOTE | 2018-11-18 15:35 | PCM.PN.HOSP ---
Patient Problems: Active and Suspected Problems (Last Updated 11/17/18 @ 09:50 by Ana Sommer) Acute coronary syndrome (Acute) Non-STEMI (non-ST elevated myocardial infarction) (Acute) Hypercholesterolemia (Acute) Congestive heart failure of unknown etiology (Acute) Abnormal EKG (Acute) Subjective: Patient seen and examined. She complained of feeling weak and tired. She denied SOB, chest pain, palpitations, dizziness, abdominal pain, diarrhea or vomiting. Review of systems otherwise negative. Labs and vitals reviewed. Vitals/I&O's: Vital Signs Temp Pulse Resp BP Pulse Ox 98.9 F 83 17 138/61 H 96 11/18/18 13:48 11/18/18 13:51 11/18/18 13:48 11/18/18 13:48 11/18/18 13:48 Oxygen Flow Rate (L/min) 10 Oxygen Delivery Method Room Air Weight: 174 lb 13.225 oz Body Mass Index (BMI) 31.1 Finger Stick Blood Glucose 159 Intake and Output for Last 24 Hours 11/16/18 11/17/18 11/18/18 23:59 23:59 23:59 Intake Total 1695.4 / 1695.4 882 / 882 2331 / 2331 Output Total 2024 / 2024 850 / 850 400 / 400 Balance -329.6 / -329.6 / 1930 / 1930 General: Alert, Oriented x3, Cooperative, No apparent distress HEENT: Atraumatic, PERRLA, EOMI, Normocephalic Oral: Moist Mucosa, - - scanty dried blood in right nasal mucosa Neck: Supple, No JVD, Negative Carotid Bruits Lungs: - - clear to auscultation. On room air Cardiovascular: Regular rate, Regular Rhythm, Normal S1, Normal S2, No murmurs Abdomen: Bowel Sounds Present, Soft, Non Tender, Non-Distended, No Hepato-splenomegaly Extremities: No clubbing, No cyanosis, No edema, Capillary Refill Less than 3 Seconds Skin: - - superficial ulceration of right lateral LE; no redness, tenderness or discharge. Musculoskeletal: No Tenderness to Palpation of Joints or Extremities Lymphatic: No Cervical, Supraclavicular, or Inguinal Adenopathy Neurological: Cranial nerves II-XII grossly intact, Neuro grossly intact, Motor Exam 5/5 strength throughout Psych/Mental Status: Normal Affect, Appropriate, Alert and oriented to time, place, person, mood and affect Microbiology Past 72 Hours 11/15/18 06:40 Blood Culture (Wb) - Right Hand Blood Culture - Preliminary No growth in 48 hours. 11/15/18 06:45 Blood Culture (Wb) - Anticubital Right Blood Culture - Preliminary No growth in 48 hours. Laboratory Results 11/17/18 16:59: POC Glucose 146 H 11/17/18 21:33: POC Glucose 186 H 11/18/18 05:10: WBC 7.2, RBC 2.50 L, Hgb 9.0 L, Hct 28.2 L, MCV 112.8 H, MCH 36.0 H, MCHC 31.9 L, RDW 14.2, RDW Differential 54.6 H, Plt Count 161, MPV 10.9, Immature Gran % (Auto) 0.600, Neut % (Auto) 57.7, Lymph % (Auto) 30.2, [place] % (Auto) 7.4, Eos % (Auto) 3.5, Baso % (Auto) 0.6, Absolute Neuts (auto) 4.2, Absolute Lymphs (auto) 2.17, Total Counted Not Reportable 11/18/18 05:10: Sodium 142, Potassium 3.8, Chloride 108 H, Carbon Dioxide 19.0 L, Anion Gap 15, BUN 90 H, Creatinine 2.54 H, Estim Creat Clear Calc 14.90, Est GFR (MDRD) Af Amer 24 L, Est GFR (MDRD) Non-Af 20 L, BUN/Creatinine Ratio 35.4 H, Glucose 98, Calcium 7.8 L 11/18/18 05:10: PT 15.3 H, INR 1.2, APTT 41.4 H 11/18/18 07:02: POC Glucose 88 Current Medications Acetaminophen (Tylenol) 650 mg PO Q6H PRN PRN PRN Reason: PAIN Last Admin: 11/18/18 05:22 Dose: 650 mg Aspirin (Aspirin, Baby) 81 mg PO DAILY@0800 [facility] Last Admin: 11/18/18 11:07 Dose: 81 mg Atenolol (Tenormin (Beta Elvia)) 50 mg PO DAILY [facility] Last Admin: 11/18/18 11:09 Dose: 50 mg Atorvastatin Calcium (Lipitor) 80 mg PO QHS [facility] Last Admin: 11/17/18 21:37 Dose: 80 mg Azathioprine (Imuran) 100 mg PO DAILY@0800 [facility] Last Admin: 11/18/18 11:07 Dose: 100 mg Budesonide (Budesonide Ec) 3 mg PO DAILY [facility] Last Admin: 11/18/18 11:08 Dose: 3 mg Clopidogrel Bisulfate (Plavix) 75 mg PO DAILY [facility] Last Admin: 11/18/18 11:09 Dose: 75 mg Dextrose (D50w Syringe) 0 gm IV X1 PRN; Protocol PRN Reason: Hypoglycemia Last Admin: 11/18/18 08:38 Dose: 12.5 gm Furosemide (Lasix) 40 mg PO DAILY [facility] Last Admin: 11/18/18 11:18 Dose: 40 mg Glucagon () 1 mg IM .X1 PRN PRN Reason: Hypoglycemia Heparin Sodium (Beef Lung) (Heparin 500 Unit/5 Ml (100/Ml)) 500 unit IV UD PRN PRN Reason: HEPARIN FLUSH Hydralazine HCl (Apresoline) 25 mg PO BID [facility] Sodium Chloride () 250 mls @ 15 mls/hr IV .[id number] PRN PRN Reason: SALINE FLUSH Last Admin: 11/15/18 10:12 Dose: 15 mls/hr Sodium Chloride () 1,000 mls @ 0 mls/hr IV .Q0M CIERRA Sodium Chloride () 1,000 mls @ 75 mls/hr IV .[id number] [facility] Last Admin: 11/18/18 08:34 Dose: 75 mls/hr Insulin Glargine (Lantus (Bkc)) 45 units SC BREAKFAST [facility] Last Admin: 11/18/18 11:23 Dose: Not Given Insulin Human Lispro (Humalog Kwikpen (Bkc)) 0 unit SQ ACHS [facility]; Protocol Last Admin: 11/18/18 11:21 Dose: Not Given Isosorbide Mononitrate (Imdur) 60 mg PO DAILY [facility] Last Admin: 11/18/18 11:09 Dose: 60 mg Magnesium Hydroxide (Milk Of Magnesia) 30 ml PO DAILY PRN PRN PRN Reason: Constipation Metoprolol Tartrate (Lopressor (Beta Elvia)) 2.5 mg IV Q6H PRN PRN Reason: BLOOD PRESSURE ELEVATION Last Admin: 11/15/18 14:41 Dose: 2.5 mg Nitroglycerin (Nitrostat) 0.4 mg SUBLINGUAL Q5M PRN PRN Reason: CARDIAC/CHEST PAIN Ondansetron HCl (Zofran) 4 mg IV Q6H PRN PRN PRN Reason: NAUSEA Last Admin: 11/18/18 08:57 Dose: 4 mg Sodium Chloride () 5 - 15 ml IV UD PRN PRN Reason: SALINE FLUSH Last Admin: 11/18/18 08:34 Dose: 10 ml Sodium Chloride ([place]man Nasal [place]) 2 spray NASAL TID PRN PRN PRN Reason: NASAL DRYNESS Last Admin: 11/17/18 07:57 Dose: 2 spray Medical Necessity - Tobacco Use Smoking Status: Never smoker Assessment/Plan All Active Problems (Last Updated 11/17/18 @ 09:50 by Ana Sommer) Acute coronary syndrome (Acute) Non-STEMI (non-ST elevated myocardial infarction) (Acute) Hypercholesterolemia (Acute) Congestive heart failure of unknown etiology (Acute) Abnormal EKG (Acute) 1. 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 per cardiology, if hemoglobin remained stable and there is no further epistasis on dual antiplatelet therapy, will consider staged PCI of proximal/mid LAD followed by staged PCI of PL and PDA. Would consider staged PCI versus CABG given location of lesions and doubtful ability to bypass PL branch. 2D echo as under 2. per cardiology, to reassess for timing of cardiac cath on Wednesday o.a of her kidney function 2. Acute diastolic heart failure BNP was >2000. CXR as under 1 2D echo done showed moderate concentric LVH with EF of 50%, stage I diastolic dysfunction and mild hypokinesis of mid anteroseptal and lateral basal pillai. RVSP was 48 mmHg. urine output has not been impressive, and cumulative positive balance is 1.786L on imdur and hydralazine fluid restriction to 1500cc every 24 hours. on IV lasix 40mg bid will get nephrology consult 3. Acute hypoxic respiratory failure due to acute diastolic heart failure and NSTEMI now on room air. continue duonebs breathing treatments 4. Severe sepsis possibly due to cellulitis SIRS criteria is now 0/4 on IV unasyn 5. Epistaxis developed epistaxis of right nostril, and required cautery by ENT surgeon. had one episode of epistaxis overnight which has resolved. nasal spray prn 6. CKD 4: Cr is up to 2.54 today; was 2.05 on admission. Trend of creatinine since October 2017 shows the creatinine has gone as high as 2.77 and has ranged between 2.2-2.7. In light of patient is in a cath likely requiring contrast, nephrology consulted for their input. 7. Acute blood loss anemia: Hb today is 9; likely had acute blood loss due to epistaxis. WIll monitor. 8. Hypertension: on atenolol 50mg daily. Fairly controlled for age. WIll monitor. Imdur and hydralazine added on o./a of heart failure. 9. Diabetes mellitus: A1C 5.4. On insulin glargine 45 units subcu. Insulin sliding scale. Accu-Cheks AC at bedtime. 10. Anion gap metabolic acidosis: resolved. DVT prophylaxis: SCDs o/a of epistaxis. Code Visit Inpatient E&M: [id number] [facility] Hosp L3
--- NOTE | 2018-11-18 15:55 | PN_ITS ---
Patient Problems: Active and Suspected Problems (Last Updated 11/17/18 @ 09:50 by Ana Sommer) Acute coronary syndrome (Acute) Non-STEMI (non-ST elevated myocardial infarction) (Acute) Hypercholesterolemia (Acute) Congestive heart failure of unknown etiology (Acute) Abnormal EKG (Acute) Subjective: Patient seen and examined. She complained of feeling weak and tired. She denied SOB, chest pain, palpitations, dizziness, abdominal pain, diarrhea or vomiting. Review of systems otherwise negative. Labs and vitals reviewed. Vitals/I&O's: Vital Signs Temp Pulse Resp BP Pulse Ox 98.9 F 83 17 138/61 H 96 11/18/18 13:48 11/18/18 13:51 11/18/18 13:48 11/18/18 13:48 11/18/18 13:48 Oxygen Flow Rate (L/min) 10 Oxygen Delivery Method Room Air Weight: 174 lb 13.225 oz Body Mass Index (BMI) 31.1 Finger Stick Blood Glucose 159 Intake and Output for Last 24 Hours 11/16/18 11/17/18 11/18/18 23:59 23:59 23:59 Intake Total 1695.4 / 1695.4 882 / 882 2331 / 2331 Output Total 2024 / 2024 850 / 850 400 / 400 Balance -329.6 / -329.6 / 1930 / 1930 General: Alert, Oriented x3, Cooperative, No apparent distress HEENT: Atraumatic, PERRLA, EOMI, Normocephalic Oral: Moist Mucosa, - - scanty dried blood in right nasal mucosa Neck: Supple, No JVD, Negative Carotid Bruits Lungs: - - clear to auscultation. On room air Cardiovascular: Regular rate, Regular Rhythm, Normal S1, Normal S2, No murmurs Abdomen: Bowel Sounds Present, Soft, Non Tender, Non-Distended, No Hepato- splenomegaly Extremities: No clubbing, No cyanosis, No edema, Capillary Refill Less than 3 Seconds Skin: - - superficial ulceration of right lateral LE; no redness, tenderness or discharge. Musculoskeletal: No Tenderness to Palpation of Joints or Extremities Lymphatic: No Cervical, Supraclavicular, or Inguinal Adenopathy Neurological: Cranial nerves II-XII grossly intact, Neuro grossly intact, Motor Exam 5/5 strength throughout Psych/Mental Status: Normal Affect, Appropriate, Alert and oriented to time, place, person, mood and affect Microbiology Past 72 Hours 11/15/18 06:40 Blood Culture (Wb) - Right Hand Blood Culture - Preliminary No growth in 48 hours. 11/15/18 06:45 Blood Culture (Wb) - Anticubital Right Blood Culture - Preliminary No growth in 48 hours. Laboratory Results 11/17/18 16:59: POC Glucose 146 H 11/17/18 21:33: POC Glucose 186 H 11/18/18 05:10: WBC 7.2, RBC 2.50 L, Hgb 9.0 L, Hct 28.2 L, MCV 112.8 H, MCH 36.0 H, MCHC 31.9 L, RDW 14.2, RDW Differential 54.6 H, Plt Count 161, MPV 10.9, Immature Gran % (Auto) 0.600, Neut % (Auto) 57.7, Lymph % (Auto) 30.2, [place] % (Auto) 7.4, Eos % (Auto) 3.5, Baso % (Auto) 0.6, Absolute Neuts (auto) 4.2, Absolute Lymphs (auto) 2.17, Total Counted Not Reportable 11/18/18 05:10: Sodium 142, Potassium 3.8, Chloride 108 H, Carbon Dioxide 19.0 L , Anion Gap 15, BUN 90 H, Creatinine 2.54 H, Estim Creat Clear Calc 14.90, Est GFR (MDRD) Af Amer 24 L, Est GFR (MDRD) Non-Af 20 L, BUN/Creatinine Ratio 35.4 H , Glucose 98, Calcium 7.8 L 11/18/18 05:10: PT 15.3 H, INR 1.2, APTT 41.4 H 11/18/18 07:02: POC Glucose 88 Current Medications Acetaminophen (Tylenol) 650 mg PO Q6H PRN PRN PRN Reason: PAIN Last Admin: 11/18/18 05:22 Dose: 650 mg Aspirin (Aspirin, Baby) 81 mg PO DAILY@0800 [facility] Last Admin: 11/18/18 11:07 Dose: 81 mg Atenolol (Tenormin (Beta Elvia)) 50 mg PO DAILY [facility] Last Admin: 11/18/18 11:09 Dose: 50 mg Atorvastatin Calcium (Lipitor) 80 mg PO QHS [facility] Last Admin: 11/17/18 21:37 Dose: 80 mg Azathioprine (Imuran) 100 mg PO DAILY@0800 [facility] Last Admin: 11/18/18 11:07 Dose: 100 mg Budesonide (Budesonide Ec) 3 mg PO DAILY [facility] Last Admin: 11/18/18 11:08 Dose: 3 mg Clopidogrel Bisulfate (Plavix) 75 mg PO DAILY [facility] Last Admin: 11/18/18 11:09 Dose: 75 mg Dextrose (D50w Syringe) 0 gm IV X1 PRN; Protocol PRN Reason: Hypoglycemia Last Admin: 11/18/18 08:38 Dose: 12.5 gm Furosemide (Lasix) 40 mg PO DAILY [facility] Last Admin: 11/18/18 11:18 Dose: 40 mg Glucagon () 1 mg IM .X1 PRN PRN Reason: Hypoglycemia Heparin Sodium (Beef Lung) (Heparin 500 Unit/5 Ml (100/Ml)) 500 unit IV UD PRN PRN Reason: HEPARIN FLUSH Hydralazine HCl (Apresoline) 25 mg PO BID [facility] Sodium Chloride () 250 mls @ 15 mls/hr IV .[id number] PRN PRN Reason: SALINE FLUSH Last Admin: 11/15/18 10:12 Dose: 15 mls/hr Sodium Chloride () 1,000 mls @ 0 mls/hr IV .Q0M [facility] Sodium Chloride () 1,000 mls @ 75 mls/hr IV .[id number] [facility] Last Admin: 11/18/18 08:34 Dose: 75 mls/hr Insulin Glargine (Lantus (Bkc)) 45 units SC BREAKFAST [facility] Last Admin: 11/18/18 11:23 Dose: Not Given Insulin Human Lispro (Humalog Kwikpen (Bkc)) 0 unit SQ ACHS [facility]; Protocol Last Admin: 11/18/18 11:21 Dose: Not Given Isosorbide Mononitrate (Imdur) 60 mg PO DAILY [facility] Last Admin: 11/18/18 11:09 Dose: 60 mg Magnesium Hydroxide (Milk Of Magnesia) 30 ml PO DAILY PRN PRN PRN Reason: Constipation Metoprolol Tartrate (Lopressor (Beta Elvia)) 2.5 mg IV Q6H PRN PRN Reason: BLOOD PRESSURE ELEVATION Last Admin: 11/15/18 14:41 Dose: 2.5 mg Nitroglycerin (Nitrostat) 0.4 mg SUBLINGUAL Q5M PRN PRN Reason: CARDIAC/CHEST PAIN Ondansetron HCl (Zofran) 4 mg IV Q6H PRN PRN PRN Reason: NAUSEA Last Admin: 11/18/18 08:57 Dose: 4 mg Sodium Chloride () 5 - 15 ml IV UD PRN PRN Reason: SALINE FLUSH Last Admin: 11/18/18 08:34 Dose: 10 ml Sodium Chloride ([place] Nasal [place]) 2 spray NASAL TID PRN PRN PRN Reason: NASAL DRYNESS Last Admin: 11/17/18 07:57 Dose: 2 spray Medical Necessity - Tobacco Use Smoking Status: Never smoker Assessment/Plan All Active Problems (Last Updated 11/17/18 @ 09:50 by Ana Sommer) Acute coronary syndrome (Acute) Non-STEMI (non-ST elevated myocardial infarction) (Acute) Hypercholesterolemia (Acute) Congestive heart failure of unknown etiology (Acute) Abnormal EKG (Acute) 1. 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 * per cardiology, if hemoglobin remained stable and there is no further epistasis on dual antiplatelet therapy, will consider staged PCI of proximal/mid LAD followed by staged PCI of PL and PDA. Would consider staged PCI versus CABG given location of lesions and doubtful ability to bypass PL branch. * 2D echo as under 2. * per cardiology, to reassess for timing of cardiac cath on Wednesday o.a of her kidney function * * 2. Acute diastolic heart failure * BNP was >2000. CXR as under 1 * 2D echo done showed moderate concentric LVH with EF of 50%, stage I diastolic dysfunction and mild hypokinesis of mid anteroseptal and lateral basal pillai. RVSP was 48 mmHg. * urine output has not been impressive, and cumulative positive balance is 1. 786L * on imdur and hydralazine * fluid restriction to 1500cc every 24 hours. * on IV lasix 40mg bid * will get nephrology consult * 3. Acute hypoxic respiratory failure due to acute diastolic heart failure and NSTEMI * now on room air. * continue duonebs breathing treatments * 4. Severe sepsis possibly due to cellulitis * SIRS criteria is now 0/4 * on IV unasyn * 5. Epistaxis * developed epistaxis of right nostril, and required cautery by ENT surgeon. * had one episode of epistaxis overnight which has resolved. * nasal spray prn 6. CKD 4: * Cr is up to 2.54 today; was 2.05 on admission. Trend of creatinine since October 2017 shows the creatinine has gone as high as 2.77 and has ranged between 2.2-2.7. * In light of patient is in a cath likely requiring contrast, nephrology consulted for their input. * 7. Acute blood loss anemia: * Hb today is 9; likely had acute blood loss due to epistaxis. * WIll monitor. * 8. Hypertension: on atenolol 50mg daily. Fairly controlled for age. WIll monito r. Imdur and hydralazine added on o./a of heart failure. 9. Diabetes mellitus: A1C 5.4. On insulin glargine 45 units subcu. Insulin sliding scale. Accu-Cheks AC at bedtime. 10. Anion gap metabolic acidosis: resolved. DVT prophylaxis: SCDs o/a of epistaxis. Code Visit Inpatient E&M: [id number] Subs Hosp L3
[2018-11-18 16:51] LABS: Bedside Glucose 94 mg/dL (70-110)
[2018-11-18] MEDS: Insulin Lispro 100 UNIT/ML INSULN.PEN SQ ×2 (18:49→22:10)
[2018-11-18 19:01] LABS: Bedside Glucose 161 mg/dL (70-110)
--- NOTE | 2018-11-18 21:40 | EKG12_ITS ---
Test Reason : CP Blood Pressure : / mmHG Vent. Rate : 101 BPM Atrial Rate : 101 BPM P-R Int : 150 ms QRS Dur : 120 ms QT Int : 402 ms P-R-T Axes : 022 058 -62 degrees QTc Int : 521 ms Sinus tachycardia Possible Left atrial enlargement Right bundle branch block Marked ST abnomality,possible inferior-lateral subendocardial injury Abnormal ECG Confirmed by ИРИНА BRYSON, PADMA ([id number]), city editor OPHELIA SIERRA ([id number] on 11/23/2018 10:15:51 AM Referred By: CHRISTIAN Confirmed By:PADMA GIFFORD MD
[2018-11-18] MEDS: Atorvastatin Calcium 80 MG Tablet PO (22:10)
[2018-11-18] MEDS: Doxycycline 100 MG CAPSULE PO (22:12)
[2018-11-19] VITALS (17 sets, daily range): BP systolic 126–164; BP diastolic 60–76; PULSE 79–102; RESP 17–22; TEMP 36.4–36.9; O2SAT 95–98
[2018-11-19 00:06] LABS: Bedside Glucose 223 mg/dL (70-110)
[2018-11-19 06:16] LABS: Absolute Lymphocyte Count 1.57 X10^3/ul (0.83-4.51); Absolute Neutrophil Count 3.3 X10^3/uL (2.0-7.7); Basophil# 0.04 X10^3/uL; Basophil% 0.7 % (0-1); Eosinophil# 0.14 X10^3/uL; Eosinophils% 2.6 % (0-5); Hematocrit 25.6 % (37-47); Hemoglobin 8.1 g/dl (12.0-15.0); Lymphocyte # 1.57 X10^3/ul (4.0); Lymphocyte % 28.8 % (19-41); Mean Corp Hgb Conc 31.6 g/gl (32-36); Mean Corpuscular Volume 113.8 fL (81-99); Monocyte% 7.3 % (0-10); Neutrophil # 3.27 X10^3/uL (2.7-7.7); Platelet Count 147 K/mm3 (150-450); RBC Distribution Width CV 14.7 % (11.6-14.6); RBC Distribution Width SD 57.1 fl (35.1-43.9); Red Blood Count 2.25 M/mm3 (4.2-5.4); White Blood Count 5.5 K/mm3 (4.4-11.0)
[2018-11-19 06:36] LABS: POSITIVE COUNT NO; POSITIVE DIFFERENTIAL NO; POSITIVE MORPHOLOGY NO
[2018-11-19 06:44] LABS: Anion Gap 12 (5-15); BUN 92 mg/dL (7-18); BUN/Creat Ratio 34.2 RATIO (10-20); Calcium,Total 7.4 mg/dL (8.5-10.1); Chloride 110 mmol/L (98-107); Creatinine, Serum 2.69 mg/dL (0.55-1.02); EST Glomerular Filtration Rate 18 mL/min (>60); Est Glom Filt Rate - Afr Amer 22 mL/min (>60); Estimated Creatinine Clearance 14.07 ml/min; Glucose 151 mg/dL (74-106); Sodium Level 140 mmol/L (136-145)
[2018-11-19 07:01] LABS: Bedside Glucose 136 mg/dL (70-110)
[2018-11-19] MEDS: Doxycycline 100 MG CAPSULE PO ×2 (09:33→22:02)
[2018-11-19] MEDS: Budesonide 3 MG CAPSULE.EC PO (09:33)
[2018-11-19] MEDS: Furosemide 40 MG Tablet PO (09:33)
[2018-11-19] MEDS: hydrALAZINE 25 MG Tablet PO ×2 (09:34→22:02)
[2018-11-19] MEDS: azaTHIOprine 50 MG Tablet 100 MG PO (09:35)
[2018-11-19] MEDS: Atenolol 50 MG Tablet PO (09:36)
[2018-11-19] MEDS: Isosorbide Mononitrate 60 MG Tablet PO (09:36)
[2018-11-19] MEDS: Clopidogrel Bisulfate 75 MG Tablet PO (09:36)
[2018-11-19] MEDS: Aspirin 81 MG TAB.CHEW PO (09:36)
--- NOTE | 2018-11-19 10:18 | PCM.PN.HOSP ---
Patient Problems: Active and Suspected Problems (Last Updated 11/17/18 @ 09:50 by Ana Sommer) Acute coronary syndrome (Acute) Non-STEMI (non-ST elevated myocardial infarction) (Acute) Hypercholesterolemia (Acute) Congestive heart failure of unknown etiology (Acute) Abnormal EKG (Acute) Subjective: Patient seen and examined. She has no complaints today and feels better. SOB is much better today. Review of systems is otherwise negative. labs and vitals reviewed. Review of systems otherwise negative. Awaiting nephrology rec's. Vitals/I&O's: Vital Signs Temp Pulse Resp BP Pulse Ox 98.1 F 84 18 143/63 H 96 11/19/18 09:55 11/19/18 09:55 11/19/18 09:55 11/19/18 09:55 11/19/18 09:55 Oxygen Flow Rate (L/min) 10 Oxygen Delivery Method Room Air Weight: 176 lb 12.972 oz Body Mass Index (BMI) 31.1 Finger Stick Blood Glucose 159 Intake and Output for Last 24 Hours 11/17/18 11/18/18 11/19/18 23:59 23:59 23:59 Intake Total 882 / 882 3651 / 3651 180 / 180 Output Total 850 / 850 600 / 600 100 / 100 Balance 32 / 32 3051 / 3051 80 / 80 General: Alert, Oriented x3, Cooperative, No apparent distress HEENT: Atraumatic, PERRLA, EOMI, Normocephalic Oral: Moist Mucosa, - - scanty dried blood in right nasal mucosa Neck: Supple, No JVD, Negative Carotid Bruits Lungs: - - clear to auscultation. On room air Cardiovascular: Regular rate, Regular Rhythm, Normal S1, Normal S2, No murmurs Abdomen: Bowel Sounds Present, Soft, Non Tender, Non-Distended, No Hepato-splenomegaly Extremities: No clubbing, No cyanosis, No edema, Capillary Refill Less than 3 Seconds Skin: - - superficial ulceration of right lateral LE; no redness, tenderness or discharge. Musculoskeletal: No Tenderness to Palpation of Joints or Extremities Lymphatic: No Cervical, Supraclavicular, or Inguinal Adenopathy Neurological: Cranial nerves II-XII grossly intact, Neuro grossly intact, Motor Exam 5/5 strength throughout Psych/Mental Status: Normal Affect, Appropriate, Alert and oriented to time, place, person, mood and affect Microbiology Past 72 Hours 11/15/18 06:40 Blood Culture (Wb) - Right Hand Blood Culture - Preliminary No growth in 48 hours. 11/15/18 06:45 Blood Culture (Wb) - Anticubital Right Blood Culture - Preliminary No growth in 48 hours. Laboratory Results 11/18/18 11:20: POC Glucose 94 11/18/18 17:17: POC Glucose 161 H 11/18/18 22:03: POC Glucose 223 H 11/19/18 05:12: WBC 5.5, RBC 2.25 L, Hgb 8.1 L, Hct 25.6 L, MCV 113.8 H, MCH 36.0 H, MCHC 31.6 L, RDW 14.7 H, RDW Differential 57.1 H, Plt Count 147 L, MPV 11.0, Immature Gran % (Auto) 0.600, Neut % (Auto) 60.0, Lymph % (Auto) 28.8, [place] % (Auto) 7.3, Eos % (Auto) 2.6, Baso % (Auto) 0.7, Absolute Neuts (auto) 3.3, Absolute Lymphs (auto) 1.57, Total Counted Not Reportable 11/19/18 05:12: Sodium 140, Potassium 4.0, Chloride 110 H, Carbon Dioxide 18.0 L, Anion Gap 12, BUN 92 H, Creatinine 2.69 H, Estim Creat Clear Calc 14.07, Est GFR (MDRD) Af Amer 22 L, Est GFR (MDRD) Non-Af 18 L, BUN/Creatinine Ratio 34.2 H, Glucose 151 H, Calcium 7.4 L 11/19/18 05:12: Vitamin B12 Pending 11/19/18 05:12: RBC Folate Hemolysate Pending, RBC Folate Pending, Hematocrit Pending 11/19/18 06:52: POC Glucose 136 H Current Medications Acetaminophen (Tylenol) 650 mg PO Q6H PRN PRN PRN Reason: PAIN Last Admin: 11/18/18 22:11 Dose: 650 mg Aspirin (Aspirin, Baby) 81 mg PO DAILY@0800 [facility] Last Admin: 11/19/18 09:36 Dose: 81 mg Atenolol (Tenormin (Beta Elvia)) 50 mg PO DAILY [facility] Last Admin: 11/19/18 09:36 Dose: 50 mg Atorvastatin Calcium (Lipitor) 80 mg PO QHS [facility] Last Admin: 11/18/18 22:10 Dose: 80 mg Azathioprine (Imuran) 100 mg PO DAILY@0800 [facility] Last Admin: 11/19/18 09:35 Dose: 100 mg Budesonide (Budesonide Ec) 3 mg PO DAILY [facility] Last Admin: 11/19/18 09:33 Dose: 3 mg Clopidogrel Bisulfate (Plavix) 75 mg PO DAILY [facility] Last Admin: 11/19/18 09:36 Dose: 75 mg Dextrose (D50w Syringe) 0 gm IV X1 PRN; Protocol PRN Reason: Hypoglycemia Last Admin: 11/18/18 08:38 Dose: 12.5 gm Doxycycline Monohydrate (Doxycycline) 100 mg PO BID [facility] Last Admin: 11/19/18 09:33 Dose: 100 mg Furosemide (Lasix) 40 mg PO DAILY [facility] Last Admin: 11/19/18 09:33 Dose: 40 mg Glucagon () 1 mg IM .X1 PRN PRN Reason: Hypoglycemia Heparin Sodium (Beef Lung) (Heparin 500 Unit/5 Ml (100/Ml)) 500 unit IV UD PRN PRN Reason: HEPARIN FLUSH Hydralazine HCl (Apresoline) 25 mg PO BID [facility] Last Admin: 11/19/18 09:34 Dose: 25 mg Sodium Chloride () 250 mls @ 15 mls/hr IV .[id number] PRN PRN Reason: SALINE FLUSH Last Admin: 11/15/18 10:12 Dose: 15 mls/hr Sodium Chloride () 1,000 mls @ 0 mls/hr IV .Q0M [facility] Insulin Glargine (Lantus (Bkc)) 45 units SC BREAKFAST [facility] Last Admin: 11/19/18 09:37 Dose: 45 u Insulin Human Lispro (Humalog Kwikpen (Bk)) 0 unit SQ ACHS [facility]; Protocol Last Admin: 11/19/18 07:39 Dose: Not Given Isosorbide Mononitrate (Imdur) 60 mg PO DAILY [facility] Last Admin: 11/19/18 09:36 Dose: 60 mg Magnesium Hydroxide (Milk Of Magnesia) 30 ml PO DAILY PRN PRN PRN Reason: Constipation Metoprolol Tartrate (Lopressor (Beta Elvia)) 2.5 mg IV Q6H PRN PRN Reason: BLOOD PRESSURE ELEVATION Last Admin: 11/15/18 14:41 Dose: 2.5 mg Nitroglycerin (Nitrostat) 0.4 mg SUBLINGUAL Q5M PRN PRN Reason: CARDIAC/CHEST PAIN Nystatin (Mycostatin Powder) 1 applic TOPICAL BID [facility]; Protocol Ondansetron HCl (Zofran) 4 mg IV Q6H PRN PRN PRN Reason: NAUSEA Last Admin: 11/18/18 18:47 Dose: 4 mg Sodium Chloride () 5 - 15 ml IV UD PRN PRN Reason: SALINE FLUSH Last Admin: 11/18/18 08:34 Dose: 10 ml Sodium Chloride ([place] Nasal [place]) 2 spray NASAL TID PRN PRN PRN Reason: NASAL DRYNESS Last Admin: 11/17/18 07:57 Dose: 2 spray Medical Necessity - Tobacco Use Smoking Status: Never smoker Assessment/Plan All Active Problems (Last Updated 11/17/18 @ 09:50 by Ana Sommer) Acute coronary syndrome (Acute) Non-STEMI (non-ST elevated myocardial infarction) (Acute) Hypercholesterolemia (Acute) Congestive heart failure of unknown etiology (Acute) Abnormal EKG (Acute) 1. 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 per cardiology, if hemoglobin remained stable and there is no further epistasis on dual antiplatelet therapy, will consider staged PCI of proximal/mid LAD followed by staged PCI of PL and PDA. Would consider staged PCI versus CABG given location of lesions and doubtful ability to bypass PL branch. 2D echo as under 2. per cardiology, to reassess for timing of cardiac cath on Wednesday o.a of her kidney function 2. Acute diastolic heart failure BNP was >2000. CXR as under 1 2D echo done showed moderate concentric LVH with EF of 50%, stage I diastolic dysfunction and mild hypokinesis of mid anteroseptal and lateral basal pillai. RVSP was 48 mmHg. urine output has not been impressive, and cumulative positive balance is 1.786L on imdur and hydralazine fluid restriction to 1500cc every 24 hours. now on PO lasix 40mg daily will get nephrology consult 3. Acute hypoxic respiratory failure due to acute diastolic heart failure and NSTEMI now on room air. continue duonebs breathing treatments 4. Severe sepsis possibly due to cellulitis SIRS criteria is now 0/4 on PO doxycycline. 5. Epistaxis developed epistaxis of right nostril, and required cautery by ENT surgeon. had one episode of epistaxis overnight which has resolved. nasal spray prn had mild oozing from the nostril overnight 6. CKD 4: Cr is up to 2.69 today; was 2.05 on admission. Trend of creatinine since October 2017 shows the creatinine has gone as high as 2.77 and has ranged between 2.2-2.7. In light of patient is in a cath likely requiring contrast, nephrology consulted for their input. awaiting nephrology rec's continue PO lasix 40mg daily. 7. Acute blood loss anemia: Hb today is 8.1 today; likely had acute blood loss due to epistaxis. consider transfusion if Hb falls to <8 o/a of heart condition 8. Hypertension: on atenolol 50mg daily hydralazine and imdur. Fairly controlled for age. 9. Diabetes mellitus: A1C 5.4. On insulin glargine 45 units subcu. Insulin sliding scale. Accu-Cheks AC at bedtime. 10. Non-anion gap metabolic acidosis: bicarb is 18. likely due to CKD. Anion gap is 12. WIll monitor DVT prophylaxis: SCDs o/a of epistaxis. still had some oozing of blood from her nostril overnight. Code Visit Inpatient E&M: [id number] [facility] Hosp L3
--- NOTE | 2018-11-19 10:27 | PN_ITS ---
Patient Problems: Active and Suspected Problems (Last Updated 11/17/18 @ 09:50 by Ana Sommer) Acute coronary syndrome (Acute) Non-STEMI (non-ST elevated myocardial infarction) (Acute) Hypercholesterolemia (Acute) Congestive heart failure of unknown etiology (Acute) Abnormal EKG (Acute) Subjective: Patient seen and examined. She has no complaints today and feels better. SOB is much better today. Review of systems is otherwise negative. labs and vitals reviewed. Review of systems otherwise negative. Awaiting nephrology rec's. Vitals/I&O's: Vital Signs Temp Pulse Resp BP Pulse Ox 98.1 F 84 18 143/63 H 96 11/19/18 09:55 11/19/18 09:55 11/19/18 09:55 11/19/18 09:55 11/19/18 09:55 Oxygen Flow Rate (L/min) 10 Oxygen Delivery Method Room Air Weight: 176 lb 12.972 oz Body Mass Index (BMI) 31.1 Finger Stick Blood Glucose 159 Intake and Output for Last 24 Hours 11/17/18 11/18/18 11/19/18 23:59 23:59 23:59 Intake Total 882 / 882 3651 / 3651 180 / 180 Output Total 850 / 850 600 / 600 100 / 100 Balance 32 / 32 3051 / 3051 80 / 80 General: Alert, Oriented x3, Cooperative, No apparent distress HEENT: Atraumatic, PERRLA, EOMI, Normocephalic Oral: Moist Mucosa, - - scanty dried blood in right nasal mucosa Neck: Supple, No JVD, Negative Carotid Bruits Lungs: - - clear to auscultation. On room air Cardiovascular: Regular rate, Regular Rhythm, Normal S1, Normal S2, No murmurs Abdomen: Bowel Sounds Present, Soft, Non Tender, Non-Distended, No Hepato- splenomegaly Extremities: No clubbing, No cyanosis, No edema, Capillary Refill Less than 3 Seconds Skin: - - superficial ulceration of right lateral LE; no redness, tenderness or discharge. Musculoskeletal: No Tenderness to Palpation of Joints or Extremities Lymphatic: No Cervical, Supraclavicular, or Inguinal Adenopathy Neurological: Cranial nerves II-XII grossly intact, Neuro grossly intact, Motor Exam 5/5 strength throughout Psych/Mental Status: Normal Affect, Appropriate, Alert and oriented to time, place, person, mood and affect Microbiology Past 72 Hours 11/15/18 06:40 Blood Culture (Wb) - Right Hand Blood Culture - Preliminary No growth in 48 hours. 11/15/18 06:45 Blood Culture (Wb) - Anticubital Right Blood Culture - Preliminary No growth in 48 hours. Laboratory Results 11/18/18 11:20: POC Glucose 94 11/18/18 17:17: POC Glucose 161 H 11/18/18 22:03: POC Glucose 223 H 11/19/18 05:12: WBC 5.5, RBC 2.25 L, Hgb 8.1 L, Hct 25.6 L, MCV 113.8 H, MCH 36.0 H, MCHC 31.6 L, RDW 14.7 H, RDW Differential 57.1 H, Plt Count 147 L, MPV 11.0, Immature Gran % (Auto) 0.600, Neut % (Auto) 60.0, Lymph % (Auto) 28.8, [place] % (Auto) 7.3, Eos % (Auto) 2.6, Baso % (Auto) 0.7, Absolute Neuts (auto) 3.3, Absolute Lymphs (auto) 1.57, Total Counted Not Reportable 11/19/18 05:12: Sodium 140, Potassium 4.0, Chloride 110 H, Carbon Dioxide 18.0 L , Anion Gap 12, BUN 92 H, Creatinine 2.69 H, Estim Creat Clear Calc 14.07, Est GFR (MDRD) Af Amer 22 L, Est GFR (MDRD) Non-Af 18 L, BUN/Creatinine Ratio 34.2 H , Glucose 151 H, Calcium 7.4 L 11/19/18 05:12: Vitamin B12 Pending 11/19/18 05:12: RBC Folate Hemolysate Pending, RBC Folate Pending, Hematocrit Pending 11/19/18 06:52: POC Glucose 136 H Current Medications Acetaminophen (Tylenol) 650 mg PO Q6H PRN PRN PRN Reason: PAIN Last Admin: 11/18/18 22:11 Dose: 650 mg Aspirin (Aspirin, Baby) 81 mg PO DAILY@0800 [facility] Last Admin: 11/19/18 09:36 Dose: 81 mg Atenolol (Tenormin (Beta Elvia)) 50 mg PO DAILY [facility] Last Admin: 11/19/18 09:36 Dose: 50 mg Atorvastatin Calcium (Lipitor) 80 mg PO QHS [facility] Last Admin: 11/18/18 22:10 Dose: 80 mg Azathioprine (Imuran) 100 mg PO DAILY@0800 [facility] Last Admin: 11/19/18 09:35 Dose: 100 mg Budesonide (Budesonide Ec) 3 mg PO DAILY [facility] Last Admin: 11/19/18 09:33 Dose: 3 mg Clopidogrel Bisulfate (Plavix) 75 mg PO DAILY [facility] Last Admin: 11/19/18 09:36 Dose: 75 mg Dextrose (D50w Syringe) 0 gm IV X1 PRN; Protocol PRN Reason: Hypoglycemia Last Admin: 11/18/18 08:38 Dose: 12.5 gm Doxycycline Monohydrate (Doxycycline) 100 mg PO BID [facility] Last Admin: 11/19/18 09:33 Dose: 100 mg Furosemide (Lasix) 40 mg PO DAILY [facility] Last Admin: 11/19/18 09:33 Dose: 40 mg Glucagon () 1 mg IM .X1 PRN PRN Reason: Hypoglycemia Heparin Sodium (Beef Lung) (Heparin 500 Unit/5 Ml (100/Ml)) 500 unit IV UD PRN PRN Reason: HEPARIN FLUSH Hydralazine HCl (Apresoline) 25 mg PO BID [facility] Last Admin: 11/19/18 09:34 Dose: 25 mg Sodium Chloride () 250 mls @ 15 mls/hr IV .[id number] PRN PRN Reason: SALINE FLUSH Last Admin: 11/15/18 10:12 Dose: 15 mls/hr Sodium Chloride () 1,000 mls @ 0 mls/hr IV .Q0M [facility] Insulin Glargine (Lantus (Bkc)) 45 units SC BREAKFAST [facility] Last Admin: 11/19/18 09:37 Dose: 45 u Insulin Human Lispro (Humalog Kwikpen (Bk)) 0 unit SQ ACHS [facility]; Protocol Last Admin: 11/19/18 07:39 Dose: Not Given Isosorbide Mononitrate (Imdur) 60 mg PO DAILY [facility] Last Admin: 11/19/18 09:36 Dose: 60 mg Magnesium Hydroxide (Milk Of Magnesia) 30 ml PO DAILY PRN PRN PRN Reason: Constipation Metoprolol Tartrate (Lopressor (Beta Elvia)) 2.5 mg IV Q6H PRN PRN Reason: BLOOD PRESSURE ELEVATION Last Admin: 11/15/18 14:41 Dose: 2.5 mg Nitroglycerin (Nitrostat) 0.4 mg SUBLINGUAL Q5M PRN PRN Reason: CARDIAC/CHEST PAIN Nystatin (Mycostatin Powder) 1 applic TOPICAL BID [facility]; Protocol Ondansetron HCl (Zofran) 4 mg IV Q6H PRN PRN PRN Reason: NAUSEA Last Admin: 11/18/18 18:47 Dose: 4 mg Sodium Chloride () 5 - 15 ml IV UD PRN PRN Reason: SALINE FLUSH Last Admin: 11/18/18 08:34 Dose: 10 ml Sodium Chloride ([place] Nasal [place]) 2 spray NASAL TID PRN PRN PRN Reason: NASAL DRYNESS Last Admin: 11/17/18 07:57 Dose: 2 spray Medical Necessity - Tobacco Use Smoking Status: Never smoker Assessment/Plan All Active Problems (Last Updated 11/17/18 @ 09:50 by Ana Sommer) Acute coronary syndrome (Acute) Non-STEMI (non-ST elevated myocardial infarction) (Acute) Hypercholesterolemia (Acute) Congestive heart failure of unknown etiology (Acute) Abnormal EKG (Acute) 1. 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 * per cardiology, if hemoglobin remained stable and there is no further epistasis on dual antiplatelet therapy, will consider staged PCI of proximal/mid LAD followed by staged PCI of PL and PDA. Would consider staged PCI versus CABG given location of lesions and doubtful ability to bypass PL branch. * 2D echo as under 2. * per cardiology, to reassess for timing of cardiac cath on Wednesday o.a of her kidney function * * 2. Acute diastolic heart failure * BNP was >2000. CXR as under 1 * 2D echo done showed moderate concentric LVH with EF of 50%, stage I diastolic dysfunction and mild hypokinesis of mid anteroseptal and lateral basal pillai. RVSP was 48 mmHg. * urine output has not been impressive, and cumulative positive balance is 1.786L * on imdur and hydralazine * fluid restriction to 1500cc every 24 hours. * now on PO lasix 40mg daily * will get nephrology consult * 3. Acute hypoxic respiratory failure due to acute diastolic heart failure and NSTEMI * now on room air. * continue duonebs breathing treatments * 4. Severe sepsis possibly due to cellulitis * SIRS criteria is now 0/4 * on PO doxycycline. * 5. Epistaxis * developed epistaxis of right nostril, and required cautery by ENT surgeon. * had one episode of epistaxis overnight which has resolved. * nasal spray prn * had mild oozing from the nostril overnight 6. CKD 4: * Cr is up to 2.69 today; was 2.05 on admission. Trend of creatinine since October 2017 shows the creatinine has gone as high as 2.77 and has ranged between 2.2-2.7. * In light of patient is in a cath likely requiring contrast, nephrology consulted for their input. * awaiting nephrology rec's * continue PO lasix 40mg daily. * 7. Acute blood loss anemia: * Hb today is 8.1 today; likely had acute blood loss due to epistaxis. * consider transfusion if Hb falls to <8 o/a of heart condition * 8. Hypertension: on atenolol 50mg daily hydralazine and imdur. Fairly controlled for age. 9. Diabetes mellitus: A1C 5.4. On insulin glargine 45 units subcu. Insulin sliding scale. Accu-Cheks AC at bedtime. 10. Non-anion gap metabolic acidosis: bicarb is 18. likely due to CKD. Anion gap is 12. WIll monitor DVT prophylaxis: SCDs o/a of epistaxis. still had some oozing of blood from her nostril overnight. Code Visit Inpatient E&M: [id number] [facility] L3
--- NOTE | 2018-11-19 10:35 | PCM.PN.BLA ---
Progress Note Consult never called in to me until today. Notified by hospitalist today. Discussed case with hospitalist, chart reviewed. CKD stage 4 d/t DMN. Rising creatinine following heart cath on 11/16/18. Triple vessel disease/NSTEMI with +troponin, abnormal cath. Cardiology following Acute CHF on iv lasix on admission, switched to oral lasix daily. SOB improved, stable. Pt at risk for ATN, requiring dialysis if needs further intervention, PCI vs CABG.
[2018-11-19] MEDS: Acetaminophen 325 MG Tablet 650 MG PO ×2 (10:36→22:12)
--- NOTE | 2018-11-19 10:40 | PN.CARD_ITS ---
Subjectve: Patient seen and evaluated. Objective: Vital Signs Temp Pulse Resp BP Pulse Ox 98.1 F 84 18 143/63 H 96 11/19/18 09:55 11/19/18 09:55 11/19/18 09:55 11/19/18 09:55 11/19/18 09:55 Oxygen Flow Rate (L/min) 10 Oxygen Delivery Method Room Air Weight: 176 lb 12.972 oz Body Mass Index (BMI) 31.1 Finger Stick Blood Glucose 159 Intake and Output for Last 24 Hours 11/17/18 11/18/18 11/19/18 23:59 23:59 23:59 Intake Total 882 / 882 3651 / 3651 180 / 180 Output Total 850 / 850 600 / 600 100 / 100 Balance 32 / 32 3051 / 3051 80 / 80 General: Awake, Alert, Oriented x 3 HEENT: PERRL, EOMI, Sclera Non Icteric Neck: Supple, Good ROM, No Lymph Node Enlargement Lungs: Clear to auscultation Cardiovascular: Regular Rhythm, Normal S1, Normal S2, No Murmurs, No Rubs, No Gallops Vascular: No Carotid Bruits, Normal Femoral Pulses, Normal Radial Pulses, Normal Dorsalis Pedal Pulse, Normal Posterior Tibial Pulses Abdomen: Bowel Sounds Present, Soft, Non Tender, No HSM, No Organomegaly Extremities: No Cyanosis, No Clubbing, No edema Musculoskeletal: No Erythema Skin: No Rashes Lymphatic: No Lymph Node Enlargement Neurological: No Focal Motor or Sensory Deficit Psych/Mental Status: Appropriate 11/19/18 05:12: WBC 5.5, RBC 2.25 L, Hgb 8.1 L, Hct 25.6 L, MCV 113.8 H, MCH 36.0 H, MCHC 31.6 L, RDW 14.7 H, RDW Differential 57.1 H, Plt Count 147 L, MPV 11.0, Immature Gran % (Auto) 0.600, Neut % (Auto) 60.0, Lymph % (Auto) 28.8, [place] % (Auto) 7.3, Eos % (Auto) 2.6, Baso % (Auto) 0.7, Absolute Neuts (auto) 3.3, Total Counted Not Reportable 11/19/18 05:12: Sodium 140, Potassium 4.0, Chloride 110 H, Carbon Dioxide 18.0 L , Anion Gap 12, BUN 92 H, Creatinine 2.69 H, Est GFR (MDRD) Af Amer 22 L, Est GFR (MDRD) Non-Af 18 L, BUN/Creatinine Ratio 34.2 H, Glucose 151 H, Calcium 7.4 L Rhythm: EKG: ECHO: Stress Test: Cardiac Cath: PCI: CT Surgery: Holter monitor: EPS: PPM: CXR: Chest CT Scan: Medical Necessity - Tobacco Use Smoking Status: Never smoker Assessment/Plan 1. Congestive heart failure: The patient has signs and symptoms of biventricular congestive heart failure. Echocardiogram shows an EF around 5 0%, with RVSP of 48 mmHg. * We will need to balance her IV fluid requirements with diuresis. 2. Coronary artery disease: Patient underwent angiogram on 11/16/18 after she was diuresed for congestive heart failure and was able to lay down flat. This was done without an LV angiogram to conserve dye and protect her kidneys. This demonstrated an occluded left circumflex which was small, 2 tandem lesions in the mid LAD, calcified right coronary artery with nonobstructive proximal mid and distal disease with evidence of proximal posterior lateral stenosis in mid PDA stenosis as well. As per the evaluation by the interventional list it does not appear that she is a good surgical risk candidate. The plan will be to recommend for her to have a staged procedure of her left anterior descending artery. The timing of this will be dependent on being seen by nephrology and assessment for whether she is going to need hemodialysis soon. The above has been discussed with the patient, her family, the hospitalist, and the wrapper selector. 3. Chronic renal insufficiency: Given the patient's chronic renal insufficiency as she is at high risk for temporary or permanent renal insufficiency from acute tubular necrosis from IV contrast dye exposure. Recommend renal with Dr. Pearson consultation for possible impending need for hemodialysis. 4. Hyperlipidemia: Recommend obtaining a fasting profile. Her LDL should be less than 70 given her diabetes and non-STEMI. 5. Thank you very much for the opportunity to participate in in the cardiac care of your patient. We will discuss with the family the options regarding the timing of intervention, but would not recommend discharge home until she has had her LAD repaired as previously communicated by the interventionalist.
[2018-11-19 11:27] LABS: Bedside Glucose 199 mg/dL (70-110)
[2018-11-19] MEDS: Insulin Lispro 100 UNIT/ML INSULN.PEN SQ ×2 (13:55→22:02)
--- NOTE | 2018-11-19 14:19 | NURSING ---
student nurse charting reviewed.
[2018-11-19] MEDS: Nystatin Powder 15gm Bottle 1 APPLIC TOPICAL ×2 (14:49→22:03)
[2018-11-19 16:16] LABS: Bedside Glucose 137 mg/dL (70-110)
--- NOTE | 2018-11-19 21:45 | EKG12_ITS ---
Test Reason : CP Blood Pressure : / mmHG Vent. Rate : 092 BPM Atrial Rate : 092 BPM P-R Int : 188 ms QRS Dur : 114 ms QT Int : 440 ms P-R-T Axes : 030 011 -48 degrees QTc Int : 544 ms Normal sinus rhythm Possible Left atrial enlargement Low voltage QRS Right bundle branch block Abnormal ECG Confirmed by ИРИНА BRYSON, PADMA ([id number]), international editorial producer OPHELIA SIERRA ([id number]) on 11/23/2018 10:17:31 AM Referred By: RADHA Confirmed By:PADMA GIFFORD MD
[2018-11-19] MEDS: Atorvastatin Calcium 80 MG Tablet PO (22:03)
[2018-11-20] VITALS (16 sets, daily range): BP systolic 118–151; BP diastolic 54–71; PULSE 77–89; RESP 16–19; TEMP 36.6–37.1; O2SAT 96–98
[2018-11-20 02:21] LABS: Bedside Glucose 202 mg/dL (70-110)
[2018-11-20 04:38] LABS: Albumin, Serum 2.2 g/dL (3.2-5.0); BUN 92 mg/dL (7-18); BUN/Creat Ratio 34.8 RATIO (10-20); Calcium,Total 7.5 mg/dL (8.5-10.1); Chloride 110 mmol/L (98-107); Creatinine, Serum 2.64 mg/dL (0.55-1.02); EST Glomerular Filtration Rate 19 mL/min (>60); Est Glom Filt Rate - Afr Amer 23 mL/min (>60); Estimated Creatinine Clearance 14.34 ml/min; Glucose 104 mg/dL (74-106); Phosphorus 5.6 mg/dL (2.5-4.9); Sodium Level 141 mmol/L (136-145)
[2018-11-20 06:28] LABS: Absolute Neutrophil Count 4.4 X10^3/uL (2.0-7.7); Basophil# 0.03 X10^3/uL; Basophil% 0.4 % (0-1); Eosinophil# 0.19 X10^3/uL; Eosinophils% 2.7 % (0-5); Hematocrit 26.1 % (37-47); Hemoglobin 8.4 g/dl (12.0-15.0); Lymphocyte % 28.2 % (19-41); Mean Corp Hgb Conc 32.2 g/gl (32-36); Mean Corpuscular Hgb 36.7 pg (27.0-32.0); Monocyte# 0.45 X10^3/uL; Monocyte% 6.3 % (0-10); Neutrophil # 4.37 X10^3/uL (2.7-7.7); Neutrophil % 61.6 % (47-70); Platelet Count 174 K/mm3 (150-450); RBC Distribution Width CV 14.7 % (11.6-14.6); RBC Distribution Width SD 56.9 fl (35.1-43.9); Red Blood Count 2.29 M/mm3 (4.2-5.4); White Blood Count 7.1 K/mm3 (4.4-11.0)
[2018-11-20 06:30] LABS: POSITIVE COUNT NO; POSITIVE DIFFERENTIAL NO; POSITIVE MORPHOLOGY NO
[2018-11-20 07:11] LABS: Bedside Glucose 104 mg/dL (70-110)
--- NOTE | 2018-11-20 09:18 | PCM.CONS.GEN ---
Problem List (1) GI bleed Status: Acute Qualifiers: GI bleed type/associated pathology: unspecified gastrointestinal hemorrhage type Qualified Code(s): K92.2 - Gastrointestinal hemorrhage, unspecified Reason for Consult Date of Consultation: 11/20/18 History of Present Illness: The patient is a 78 year old F was admitted to the hospital for management of a non-STEMI myocardial infarction. While being in the hospital over the last day she has noticed that she has had some bright red rectal bleeding as well as blood on the toilet paper. This was painless in nature and she has not been complaining of any abdominal pain. She has a history of having an upper scope last year which was reportedly negative. It was done at an offsite. She has never had a colonoscopy. Past Medical History Past Medical History (Chronic Problems): Chronic Problems (Last Updated 11/17/18 @ 09:50 by Ana Sommer) Atherosclerotic heart disease of [place] coronary artery with other forms of angina pectoris (Chronic) PROX LAD: 75 % Stenosis; MID LAD: 85 % Stenosis; DIAGONAL 2: Proximal - Moderate luminal irregularities up to 50%; CIRCUMFLEX ARTERY: is occluded; RIGHT CORONARY ARTERY: Moderate calcification; PROX RCA: Mild luminal irregularities less than 30%; RT PLV: 75 % Stenosis; RT PDA: Mid - 75 % Stenosis (per [facility] Dr. Motta @ [facility] 11/16/2018) History of left heart catheterization (Chronic 11/16/18) PROX LAD: 75 % Stenosis; MID LAD: 85 % Stenosis; DIAGONAL 2: Proximal - Moderate luminal irregularities up to 50%; CIRCUMFLEX ARTERY: is occluded; RIGHT CORONARY ARTERY: Moderate calcification; PROX RCA: Mild luminal irregularities less than 30%; RT PLV: 75 % Stenosis; RT PDA: Mid - 75 % Stenosis (per [facility] Dr. Motta @ [facility] 11/16/2018) Hypertension (Chronic) Medical History: Medical History (Last Reviewed 11/20/18 @ 09:21 by Greyson Bruno MD) Atherosclerotic heart disease of [place] coronary artery with other forms of angina pectoris (Chronic) I25.118 PROX LAD: 75 % Stenosis; MID LAD: 85 % Stenosis; DIAGONAL 2: Proximal - Moderate luminal irregularities up to 50%; CIRCUMFLEX ARTERY: is occluded; RIGHT CORONARY ARTERY: Moderate calcification; PROX RCA: Mild luminal irregularities less than 30%; RT PLV: 75 % Stenosis; RT PDA: Mid - 75 % Stenosis (per [facility] Dr. Motta @ [facility] 11/16/2018) Abdominal pain R10.9 Anxiety F41.9 Cholelithiasis K80.20 Constipation K59.00 Diabetes E11.9 Gout M10.9 History of hysterectomy Z90.710 Nausea & vomiting R11.2 Rheumatoid arthritis M06.9 Hypertension I10 Allergies codeine Adverse Reaction (Verified 11/15/18 06:12) Hives pain medications Adverse Reaction (Intermediate, Uncoded 11/15/18 06:12) nausea/vomiting Home Medications: Ambulatory Orders Medication Instructions Recorded Atenolol [Tenormin (beta marilyn)] 100 mg PO DAILY 12/05/17 insulin detemir (U-100) 100 45 unit SC BREAKFAST ml 05/26/18 unit/mL (3 mL) subcutaneous pen insulin lispro (U- 100) 100 15 unit SC TIDCM 05/26/18 unit/mL subcutaneous pen Azathioprine [Imuran] 100 mg PO DAILY@0800 11/15/18 Budesonide [Budesonide EC] 3 mg PO DAILY 11/15/18 Cephalexin [Keflex] 500 mg PO TID 11/15/18 Furosemide [Lasix] 20 mg PO DAILY 11/15/18 Surgical History: Surgical History (Last Reviewed 11/20/18 @ 09:21 by Greyson Bruno MD) History of left heart catheterization (Chronic) Onset Date: 11/16/18 Z98.890 PROX LAD: 75 % Stenosis; MID LAD: 85 % Stenosis; DIAGONAL 2: Proximal - Moderate luminal irregularities up to 50%; CIRCUMFLEX ARTERY: is occluded; RIGHT CORONARY ARTERY: Moderate calcification; PROX RCA: Mild luminal irregularities less than 30%; RT PLV: 75 % Stenosis; RT PDA: Mid - 75 % Stenosis (per [facility] Dr. 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 SEAM RUBBER History: No pertinent HEEL SEAM RUBBER history Lives: Spouse/ Significant Other Smoking Status: Never smoker Alcohol: None - *Family History Maternal Family History: Family History (Last Reviewed 06/07/18 @ 14:09 by Heike Pedraza) Father Heart disease History Items: No pertinent history Paternal Family History: Family History (Last Reviewed 06/07/18 @ 14:09 by Heike Pedraza) Father Heart disease History Items: No pertinent history Review of Systems Constitutional: Denies: Chills, Fever, Weight Change Cardiovascular: Reports: Chest Pain Respiratory: Denies: Cough, Hemoptysis, Shortness of breath at rest, Shortness of breath upon exertion, Wheezing Gastrointestinal: Denies: Abdominal Pain, Constipation, Diarrhea, Hematemesis, Nausea, Melena, Vomiting Patient Problems: Active and Suspected Problems (Last Updated 11/17/18 @ 09:50 by Ana Sommer) GI bleed (Acute) Acute coronary syndrome (Acute) Non-STEMI (non-ST elevated myocardial infarction) (Acute) Hypercholesterolemia (Acute) Congestive heart failure of unknown etiology (Acute) Abnormal EKG (Acute) - Physical Exam General: Alert, Oriented x3, - - Patient looks under some slight distress laying there in bed. Neck: Supple, No JVD Lungs: Clear to auscultation Cardiovascular: Regular rate, Regular Rhythm, No murmurs Abdomen: Bowel Sounds Present, Soft, Non Tender, Non-Distended, Obese Extremities: No clubbing, No cyanosis, No edema Vital Signs Temp Pulse Resp BP Pulse Ox 98.0 F 78 16 127/54 H 96 11/20/18 03:32 11/20/18 07:25 11/20/18 03:32 11/20/18 03:32 11/20/18 07:05 Oxygen Flow Rate (L/min) 98 Oxygen Delivery Method Room Air Weight: 173 lb 1.006 oz Body Mass Index (BMI) 31.1 Finger Stick Blood Glucose 159 Intake and Output for Last 24 Hours 11/18/18 11/19/18 11/20/18 23:59 23:59 23:59 Intake Total 3651 / 3651 1680 / 1680 150 / 150 Output Total 600 / 600 750 / 750 Balance 3051 / 3051 930 / 930 150 / 150 Microbiology Past 72 Hours 11/15/18 06:40 Blood Culture - Final Blood Culture (Wb) - Right Hand No growth in 5 days. 11/15/18 06:45 Blood Culture - Final Blood Culture (Wb) - Anticubital Right No growth in 5 days. 11/19/18 22:30 Stool Occult Blood (WILL) - Final Stool Occult Blood Positive Laboratory Tests Past 24 Hrs 11/20/18 11/20/18 03:51 03:55 WBC 7.1 RBC 2.29 L Hgb 8.4 L Hct 26.1 L MCV 114.0 H MCH 36.7 H MCHC 32.2 RDW 14.7 H RDW Differential 56.9 H Plt Count 174 MPV 11.0 Immature Gran % (Auto) 0.800 Neut % (Auto) 61.6 Lymph % (Auto) 28.2 [place] % (Auto) 6.3 Eos % (Auto) 2.7 Baso % (Auto) 0.4 Absolute Neuts (auto) 4.4 Absolute Lymphs (auto) 2.00 Total Counted Not Reportable Sodium 141 Potassium 4.0 Chloride 110 H Carbon Dioxide 18.0 L BUN 92 H Creatinine 2.64 H Estim Creat Clear Calc 14.34 Est GFR (MDRD) Af Amer 23 L Est GFR (MDRD) Non-Af 19 L BUN/Creatinine Ratio 34.8 H Glucose 104 Calcium 7.5 L Phosphorus 5.6 H Albumin 2.2 L POC Glucose 11/20/18 11/19/18 11/19/18 07:08 22:01 16:12 POC Glucose 104 202 H 137 H 11/19/18 11:19 POC Glucose 199 H Assessment/Plan All Active Problems (Last Updated 11/17/18 @ 09:50 by Ana Sommer) GI bleed (Acute) Acute coronary syndrome (Acute) Non-STEMI (non-ST elevated myocardial infarction) (Acute) Hypercholesterolemia (Acute) Congestive heart failure of unknown etiology (Acute) Abnormal EKG (Acute) At this point I think were going to have to defer any colonoscopic evaluation until cardiology has performed her heart catheterization with stents possibly. Given her overall cardiac standpoint it is probably not advised that we proceed with colonoscopy prior to for complete treatment of her non-STEMI workup.
--- NOTE | 2018-11-20 09:24 | CON.PCM_ITS ---
Problem List (1) GI bleed Status: Acute Qualifiers: GI bleed type/associated pathology: unspecified gastrointestinal hemorrhage type Qualified Code(s): K92.2 - Gastrointestinal hemorrhage, unspecified Reason for Consult Date of Consultation: 11/20/18 History of Present Illness: The patient is a 78 year old F was admitted to the hospital for management of a non-STEMI myocardial infarction. While being in the hospital over the last day she has noticed that she has had some bright red rectal bleeding as well as blood on the toilet paper. This was painless in nature and she has not been com plaining of any abdominal pain. She has a history of having an upper scope last year which was reportedly negative. It was done at an offsite. She has never had a colonoscopy. Past Medical History Past Medical History (Chronic Problems): Chronic Problems (Last Updated 11/17/18 @ 09:50 by Ana Sommer) Atherosclerotic heart disease of [place] coronary artery with other forms of angina pectoris (Chronic) PROX LAD: 75 % Stenosis; MID LAD: 85 % Stenosis; DIAGONAL 2: Proximal - Moderate luminal irregularities up to 50%; CIRCUMFLEX ARTERY: is occluded; RIGHT CORONARY ARTERY: Moderate calcification; PROX RCA: Mild luminal irregularities less than 30%; RT PLV: 75 % Stenosis; RT PDA: Mid - 75 % Stenosis (per [facility] Dr. Motta @ [facility] 11/16/2018) History of left heart catheterization (Chronic 11/16/18) PROX LAD: 75 % Stenosis; MID LAD: 85 % Stenosis; DIAGONAL 2: Proximal - Moderate luminal irregularities up to 50%; CIRCUMFLEX ARTERY: is occluded; RIGHT CORONARY ARTERY: Moderate calcification; PROX RCA: Mild luminal irregularities less than 30%; RT PLV: 75 % Stenosis; RT PDA: Mid - 75 % Stenosis (per [facility] Dr. Motta @ [facility] 11/16/2018) Hypertension (Chronic) Medical History: Medical History (Last Reviewed 11/20/18 @ 09:21 by Greyson Bruno MD) Atherosclerotic heart disease of [place] coronary artery with other forms of angina pectoris (Chronic) I25.118 PROX LAD: 75 % Stenosis; MID LAD: 85 % Stenosis; DIAGONAL 2: Proximal - Moderate luminal irregularities up to 50%; CIRCUMFLEX ARTERY: is occluded; RIGHT CORONARY ARTERY: Moderate calcification; PROX RCA: Mild luminal irregularities less than 30%; RT PLV: 75 % Stenosis; RT PDA: Mid - 75 % Stenosis (per [facility] Dr. Motta @ [facility] 11/16/2018) Abdominal pain R10.9 Anxiety F41.9 Cholelithiasis K80.20 Constipation K59.00 Diabetes E11.9 Gout M10.9 History of hysterectomy Z90.710 Nausea & vomiting R11.2 Rheumatoid arthritis M06.9 Hypertension I10 Allergies codeine Adverse Reaction (Verified 11/15/18 06:12) Hives pain medications Adverse Reaction (Intermediate, Uncoded 11/15/18 06:12) nausea/vomiting Home Medications: Ambulatory Orders Medication Instructions Recorded Atenolol [Tenormin (beta marilyn)] 100 mg PO DAILY 12/05/17 insulin detemir (U-100) 100 45 unit SC BREAKFAST ml 05/26/18 unit/mL (3 mL) subcutaneous pen insulin lispro (U- 100) 100 15 unit SC TIDCM 05/26/18 unit/mL subcutaneous pen Azathioprine [Imuran] 100 mg PO DAILY@0800 11/15/18 Budesonide [Budesonide EC] 3 mg PO DAILY 11/15/18 Cephalexin [Keflex] 500 mg PO TID 11/15/18 Furosemide [Lasix] 20 mg PO DAILY 11/15/18 Surgical History: Surgical History (Last Reviewed 11/20/18 @ 09:21 by Greyson Bruno MD) History of left heart catheterization (Chronic) Onset Date: 11/16/18 Z98.890 PROX LAD: 75 % Stenosis; MID LAD: 85 % Stenosis; DIAGONAL 2: Proximal - Moderate luminal irregularities up to 50%; CIRCUMFLEX ARTERY: is occluded; RIGHT CORONARY ARTERY: Moderate calcification; PROX RCA: Mild luminal irregularities less than 30%; RT PLV: 75 % Stenosis; RT PDA: Mid - 75 % Stenosis (per [facility] Dr. 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 Lives: Spouse/ Significant Other Smoking Status: Never smoker Alcohol: None - *Family History Maternal Family History: Family History (Last Reviewed 06/07/18 @ 14:09 by Heike Pedraza) Father Heart disease History Items: No pertinent history Paternal Family History: Family History (Last Reviewed 06/07/18 @ 14:09 by Heike Pedraza) Father Heart disease History Items: No pertinent history Review of Systems Constitutional: Denies: Chills, Fever, Weight Change Cardiovascular: Reports: Chest Pain Respiratory: Denies: Cough, Hemoptysis, Shortness of breath at rest, Shortness of breath upon exertion, Wheezing Gastrointestinal: Denies: Abdominal Pain, Constipation, Diarrhea, Hematemesis, Nausea, Melena, Vomiting Patient Problems: Active and Suspected Problems (Last Updated 11/17/18 @ 09:50 by Ana Sommer) GI bleed (Acute) Acute coronary syndrome (Acute) Non-STEMI (non-ST elevated myocardial infarction) (Acute) Hypercholesterolemia (Acute) Congestive heart failure of unknown etiology (Acute) Abnormal EKG (Acute) - Physical Exam General: Alert, Oriented x3, - - Patient looks under some slight distress laying there in bed. Neck: Supple, No JVD Lungs: Clear to auscultation Cardiovascular: Regular rate, Regular Rhythm, No murmurs Abdomen: Bowel Sounds Present, Soft, Non Tender, Non-Distended, Obese Extremities: No clubbing, No cyanosis, No edema Vital Signs Temp Pulse Resp BP Pulse Ox 98.0 F 78 16 127/54 H 96 11/20/18 03:32 11/20/18 07:25 11/20/18 03:32 11/20/18 03:32 11/20/18 07:05 Oxygen Flow Rate (L/min) 98 Oxygen Delivery Method Room Air Weight: 173 lb 1.006 oz Body Mass Index (BMI) 31.1 Finger Stick Blood Glucose 159 Intake and Output for Last 24 Hours 11/18/18 11/19/18 11/20/18 23:59 23:59 23:59 Intake Total 3651 / 3651 1680 / 1680 150 / 150 Output Total 600 / 600 750 / 750 Balance 3051 / 3051 930 / 930 150 / 150 Microbiology Past 72 Hours 11/15/18 06:40 Blood Culture - Final Blood Culture (Wb) - Right Hand No growth in 5 days. 11/15/18 06:45 Blood Culture - Final Blood Culture (Wb) - Anticubital Right No growth in 5 days. 11/19/18 22:30 Stool Occult Blood (WILL) - Final Stool Occult Blood Positive Laboratory Tests Past 24 Hrs 11/20/18 11/20/18 03:51 03:55 WBC 7.1 RBC 2.29 L Hgb 8.4 L Hct 26.1 L MCV 114.0 H MCH 36.7 H MCHC 32.2 RDW 14.7 H RDW Differential 56.9 H Plt Count 174 MPV 11.0 Immature Gran % (Auto) 0.800 Neut % (Auto) 61.6 Lymph % (Auto) 28.2 [place] % (Auto) 6.3 Eos % (Auto) 2.7 Baso % (Auto) 0.4 Absolute Neuts (auto) 4.4 Absolute Lymphs (auto) 2.00 Total Counted Not Reportable Sodium 141 Potassium 4.0 Chloride 110 H Carbon Dioxide 18.0 L BUN 92 H Creatinine 2.64 H Estim Creat Clear Calc 14.34 Est GFR (MDRD) Af Amer 23 L Est GFR (MDRD) Non-Af 19 L BUN/Creatinine Ratio 34.8 H Glucose 104 Calcium 7.5 L Phosphorus 5.6 H Albumin 2.2 L POC Glucose 11/20/18 11/19/18 11/19/18 07:08 22:01 16:12 POC Glucose 104 202 H 137 H 11/19/18 11:19 POC Glucose 199 H Assessment/Plan All Active Problems (Last Updated 11/17/18 @ 09:50 by Ana Sommer) GI bleed (Acute) Acute coronary syndrome (Acute) Non-STEMI (non-ST elevated myocardial infarction) (Acute) Hypercholesterolemia (Acute) Congestive heart failure of unknown etiology (Acute) Abnormal EKG (Acute) At this point I think were going to have to defer any colonoscopic evaluation until cardiology has performed her heart catheterization with stents possibly. Given her overall cardiac standpoint it is probably not advised that we proceed with colonoscopy prior to for complete treatment of her non-STEMI workup.
--- NOTE | 2018-11-20 09:58 | PCM.PN.CARD ---
Subjectve: Patient seen and evaluated. Events of last night noted. Patient noted to have rectal bleed, epistaxis and generally not feeling well. Objective: Vital Signs Temp Pulse Resp BP Pulse Ox 98.0 F 78 16 127/54 H 96 11/20/18 03:32 11/20/18 07:25 11/20/18 03:32 11/20/18 03:32 11/20/18 07:05 Oxygen Flow Rate (L/min) 98 Oxygen Delivery Method Room Air Weight: 173 lb 1.006 oz Body Mass Index (BMI) 31.1 Finger Stick Blood Glucose 159 Intake and Output for Last 24 Hours 11/18/18 11/19/18 11/20/18 23:59 23:59 23:59 Intake Total 3651 / 3651 1680 / 1680 150 / 150 Output Total 600 / 600 750 / 750 Balance 3051 / 3051 930 / 930 150 / 150 General: Awake, Alert, Oriented x 3 HEENT: PERRL, EOMI, Sclera Non Icteric, Pallor Oral: Moist Mucosa Neck: Supple, Good ROM, No Lymph Node Enlargement Lungs: Clear to auscultation Cardiovascular: Regular Rhythm, Normal S1, Normal S2, No Murmurs, No Rubs, No Gallops Vascular: No Carotid Bruits, Normal Femoral Pulses, Normal Radial Pulses, Normal Dorsalis Pedal Pulse, Normal Posterior Tibial Pulses Abdomen: Bowel Sounds Present, Soft, Non Tender, No HSM, No Organomegaly Extremities: No Cyanosis, No Clubbing, No edema Musculoskeletal: No Erythema Skin: No Rashes Lymphatic: No Lymph Node Enlargement Neurological: No Focal Motor or Sensory Deficit Psych/Mental Status: Appropriate 11/20/18 03:51: Sodium 141, Potassium 4.0, Chloride 110 H, Carbon Dioxide 18.0 L, BUN 92 H, Creatinine 2.64 H, Est GFR (MDRD) Af Amer 23 L, Est GFR (MDRD) Non-Af 19 L, BUN/Creatinine Ratio 34.8 H, Glucose 104, Calcium 7.5 L, Phosphorus 5.6 H 11/20/18 03:55: WBC 7.1, RBC 2.29 L, Hgb 8.4 L, Hct 26.1 L, MCV 114.0 H, MCH 36.7 H, MCHC 32.2, RDW 14.7 H, RDW Differential 56.9 H, Plt Count 174, MPV 11.0, Immature Gran % (Auto) 0.800, Neut % (Auto) 61.6, Lymph % (Auto) 28.2, [place] % (Auto) 6.3, Eos % (Auto) 2.7, Baso % (Auto) 0.4, Absolute Neuts (auto) 4.4, Total Counted Not Reportable Rhythm: EKG: ECHO: Stress Test: Cardiac Cath: PCI: CT Surgery: Holter monitor: EPS: PPM: CXR: Chest CT Scan: Medical Necessity - Tobacco Use Smoking Status: Never smoker Assessment/Plan 1. Congestive heart failure: The patient had signs and symptoms of biventricular congestive heart failure. The above appears to have resolved. Echocardiogram shows an EF around 50%, with RVSP of 48 mmHg. We will need to balance her IV fluid requirements with diuresis. 2. Coronary artery disease: Patient underwent angiogram on 11/16/18 after she was diuresed for congestive heart failure and was able to lay down flat. This was done without an LV angiogram to conserve dye and protect her kidneys. This demonstrated an occluded left circumflex which was small, 2 tandem lesions in the mid LAD, calcified right coronary artery with nonobstructive proximal mid and distal disease with evidence of proximal posterior lateral stenosis in mid PDA stenosis as well. As per the evaluation by the interventional list it does not appear that she is a good surgical risk candidate. The plan will be to recommend for her to have a staged procedure of her left anterior descending artery. The timing of this will be dependent on being seen by nephrology and assessment for whether she is going to need hemodialysis soon. At this particular time however with her epistaxis as well as a rectal bleed and the need for long-term clopidogrel or ticagrelor the above may need to be evaluated to make sure that she is stable and will tolerate this before we proceed with any invasive procedure. Would like to maximize medical therapy in the meantime. She may benefit from 1 unit of packed red blood cells The above has been discussed with the patient, her family, the hospitalist. 3. Chronic renal insufficiency: Given the patient's chronic renal insufficiency as she is at high risk for temporary or permanent renal insufficiency from acute tubular necrosis from IV contrast dye exposure. Recommend renal with Dr. Pearson consultation for possible impending need for hemodialysis. Will await input. 4. Hyperlipidemia: Recommend obtaining a fasting profile. Her LDL should be less than 70 given her diabetes and non-STEMI. 5. Thank you very much for the opportunity to participate in in the cardiac care of your patient. We will discuss with the family the options regarding the timing of intervention.
[2018-11-20] MEDS: azaTHIOprine 50 MG Tablet 100 MG PO (10:03)
--- NOTE | 2018-11-20 10:03 | PN.CARD_ITS ---
Subjectve: Patient seen and evaluated. Events of last night noted. Patient noted to have rectal bleed, epistaxis and generally not feeling well. Objective: Vital Signs Temp Pulse Resp BP Pulse Ox 98.0 F 78 16 127/54 H 96 11/20/18 03:32 11/20/18 07:25 11/20/18 03:32 11/20/18 03:32 11/20/18 07:05 Oxygen Flow Rate (L/min) 98 Oxygen Delivery Method Room Air Weight: 173 lb 1.006 oz Body Mass Index (BMI) 31.1 Finger Stick Blood Glucose 159 Intake and Output for Last 24 Hours 11/18/18 11/19/18 11/20/18 23:59 23:59 23:59 Intake Total 3651 / 3651 1680 / 1680 150 / 150 Output Total 600 / 600 750 / 750 Balance 3051 / 3051 930 / 930 150 / 150 General: Awake, Alert, Oriented x 3 HEENT: PERRL, EOMI, Sclera Non Icteric, Pallor Oral: Moist Mucosa Neck: Supple, Good ROM, No Lymph Node Enlargement Lungs: Clear to auscultation Cardiovascular: Regular Rhythm, Normal S1, Normal S2, No Murmurs, No Rubs, No Gallops Vascular: No Carotid Bruits, Normal Femoral Pulses, Normal Radial Pulses, Normal Dorsalis Pedal Pulse, Normal Posterior Tibial Pulses Abdomen: Bowel Sounds Present, Soft, Non Tender, No HSM, No Organomegaly Extremities: No Cyanosis, No Clubbing, No edema Musculoskeletal: No Erythema Skin: No Rashes Lymphatic: No Lymph Node Enlargement Neurological: No Focal Motor or Sensory Deficit Psych/Mental Status: Appropriate 11/20/18 03:51: Sodium 141, Potassium 4.0, Chloride 110 H, Carbon Dioxide 18.0 L , BUN 92 H, Creatinine 2.64 H, Est GFR (MDRD) Af Amer 23 L, Est GFR (MDRD) Non- Af 19 L, BUN/Creatinine Ratio 34.8 H, Glucose 104, Calcium 7.5 L, Phosphorus 5.6 H 11/20/18 03:55: WBC 7.1, RBC 2.29 L, Hgb 8.4 L, Hct 26.1 L, MCV 114.0 H, MCH 36.7 H, MCHC 32.2, RDW 14.7 H, RDW Differential 56.9 H, Plt Count 174, MPV 11.0, Immature Gran % (Auto) 0.800, Neut % (Auto) 61.6, Lymph % (Auto) 28.2, [place] % (Auto) 6.3, Eos % (Auto) 2.7, Baso % (Auto) 0.4, Absolute Neuts (auto) 4.4, Total Counted Not Reportable Rhythm: EKG: ECHO: Stress Test: Cardiac Cath: PCI: CT Surgery: Holter monitor: EPS: PPM: CXR: Chest CT Scan: Medical Necessity - Tobacco Use Smoking Status: Never smoker Assessment/Plan 1. Congestive heart failure: * The patient had signs and symptoms of biventricular congestive heart failure. The above appears to have resolved. Echocardiogram shows an EF around 50%, with RVSP of 48 mmHg. * We will need to balance her IV fluid requirements with diuresis. 2. Coronary artery disease: Patient underwent angiogram on 11/16/18 after she was diuresed for congestive heart failure and was able to lay down flat. This was done without an LV angiogram to conserve dye and protect her kidneys. This demonstrated an occluded left circumflex which was small, 2 tandem lesions in the mid LAD, calcified right coronary artery with nonobstructive proximal mid and distal disease with evidence of proximal posterior lateral stenosis in mid PDA stenosis as well. As per the evaluation by the interventional list it does not appear that she is a good surgical risk candidate. The plan will be to recommend for her to have a staged procedure of her left anterior descending artery. The timing of this will be dependent on being seen by nephrology and assessment for whether she is going to need hemodialysis soon. * At this particular time however with her epistaxis as well as a rectal bleed and the need for long-term clopidogrel or ticagrelor the above may need to be evaluated to make sure that she is stable and will tolerate this before we proceed with any invasive procedure. * Would like to maximize medical therapy in the meantime. She may benefit from 1 unit of packed red blood cells * The above has been discussed with the patient, her family, the hospitalist. 3. Chronic renal insufficiency: Given the patient's chronic renal insufficiency as she is at high risk for temporary or permanent renal insufficiency from acute tubular necrosis from IV contrast dye exposure. Recommend renal with Dr. Pearson consultation for possible impending need for hemodialysis. Will await input. 4. Hyperlipidemia: Recommend obtaining a fasting profile. Her LDL should be less than 70 given her diabetes and non-STEMI. 5. Thank you very much for the opportunity to participate in in the cardiac care of your patient. We will discuss with the family the options regarding the timing of intervention.
[2018-11-20] MEDS: Aspirin 81 MG TAB.CHEW PO (10:04)
[2018-11-20] MEDS: hydrALAZINE 25 MG Tablet PO ×2 (10:04→22:19)
[2018-11-20] MEDS: Furosemide 40 MG Tablet PO ×2 (10:06→18:26)
[2018-11-20] MEDS: Doxycycline 100 MG CAPSULE PO ×2 (10:06→22:21)
[2018-11-20] MEDS: Isosorbide Mononitrate 60 MG Tablet PO (10:06)
[2018-11-20] MEDS: Budesonide 3 MG CAPSULE.EC PO (10:06)
[2018-11-20] MEDS: Acetaminophen 325 MG Tablet 650 MG PO ×2 (10:09→22:19)
[2018-11-20] MEDS: Nystatin Powder 15gm Bottle 1 APPLIC TOPICAL ×2 (10:11→22:23)
[2018-11-20] MEDS: Atenolol 50 MG Tablet PO (10:12)
[2018-11-20] MEDS: Clopidogrel Bisulfate 75 MG Tablet PO (10:12)
--- NOTE | 2018-11-20 11:33 | PCM.PN.HOSP ---
Patient Problems: Active and Suspected Problems (Last Reviewed 11/20/18 @ 09:21 by Greyson Bruno MD) GI bleed (Acute) Acute coronary syndrome (Acute) Non-STEMI (non-ST elevated myocardial infarction) (Acute) Hypercholesterolemia (Acute) Congestive heart failure of unknown etiology (Acute) Abnormal EKG (Acute) Subjective: Patient seen and examined. She complains of feeling very fatigued. She had a nosebleed from her left nostril yesterday. This is new as previously had been from the right nostril only. She also complains of rectal bleeding with passage of clots. She thinks this may be due to hemorrhoids. She is never had a colonoscopy before in her life but states she had a previous EGD which was normal. Indication for EGD according to patient's was on account of her diabetes suspecting that she was possibly being assessed for gastroparesis. She denies any shortness of breath, palpitations or dizziness, abdominal pain, diarrhea vomiting. She did complain of chest pain overnight which was squeezing in nature and was relieved by sublingual nitroglycerin. Review of systems otherwise negative. Labs and vitals reviewed. Vitals/I&O's: Vital Signs Temp Pulse Resp BP Pulse Ox 98.6 F 86 19 H 141/71 H 98 11/20/18 09:59 11/20/18 10:04 11/20/18 09:59 11/20/18 09:59 11/20/18 09:59 Oxygen Flow Rate (L/min) 98 Oxygen Delivery Method Room Air Weight: 173 lb 1.006 oz Body Mass Index (BMI) 31.1 Finger Stick Blood Glucose 159 Intake and Output for Last 24 Hours 11/18/18 11/19/18 11/20/18 23:59 23:59 23:59 Intake Total 3651 / 3651 1680 / 1680 150 / 150 Output Total 600 / 600 750 / 750 Balance 3051 / 3051 930 / 930 150 / 150 General: Alert, Oriented x3, Cooperative, No apparent distress HEENT: Atraumatic, PERRLA, EOMI, Normocephalic Oral: Moist Mucosa, - - scanty dried blood in right nasal mucosa Neck: Supple, No JVD, Negative Carotid Bruits Lungs: - - clear to auscultation. On room air Cardiovascular: Regular rate, Regular Rhythm, Normal S1, Normal S2, No murmurs Abdomen: Bowel Sounds Present, Soft, Non Tender, Non-Distended, No Hepato-splenomegaly Extremities: No clubbing, No cyanosis, No edema, Capillary Refill Less than 3 Seconds Skin: - - superficial ulceration of right lateral LE; no redness, tenderness or discharge. Musculoskeletal: No Tenderness to Palpation of Joints or Extremities Lymphatic: No Cervical, Supraclavicular, or Inguinal Adenopathy Neurological: Cranial nerves II-XII grossly intact, Neuro grossly intact, Motor Exam 5/5 strength throughout Psych/Mental Status: Normal Affect, Appropriate, Alert and oriented to time, place, person, mood and affect Microbiology Past 72 Hours 11/15/18 06:40 Blood Culture (Wb) - Right Hand Blood Culture - Final No growth in 5 days. 11/15/18 06:45 Blood Culture (Wb) - Anticubital Right Blood Culture - Final No growth in 5 days. 11/19/18 22:30 Stool Stool Occult Blood (WILL) - Final Occult Blood Positive Laboratory Results 11/19/18 16:12: POC Glucose 137 H 11/19/18 22:01: POC Glucose 202 H 11/20/18 03:51: Sodium 141, Potassium 4.0, Chloride 110 H, Carbon Dioxide 18.0 L, BUN 92 H, Creatinine 2.64 H, Estim Creat Clear Calc 14.34, Est GFR (MDRD) Af Amer 23 L, Est GFR (MDRD) Non-Af 19 L, BUN/Creatinine Ratio 34.8 H, Glucose 104, Calcium 7.5 L, Phosphorus 5.6 H, Albumin 2.2 L 11/20/18 03:55: WBC 7.1, RBC 2.29 L, Hgb 8.4 L, Hct 26.1 L, MCV 114.0 H, MCH 36.7 H, MCHC 32.2, RDW 14.7 H, RDW Differential 56.9 H, Plt Count 174, MPV 11.0, Immature Gran % (Auto) 0.800, Neut % (Auto) 61.6, Lymph % (Auto) 28.2, [place] % (Auto) 6.3, Eos % (Auto) 2.7, Baso % (Auto) 0.4, Absolute Neuts (auto) 4.4, Absolute Lymphs (auto) 2.00, Total Counted Not Reportable 11/20/18 07:08: POC Glucose 104 Current Medications Acetaminophen (Tylenol) 650 mg PO Q6H PRN PRN PRN Reason: PAIN Last Admin: 11/20/18 10:09 Dose: 650 mg Aspirin (Aspirin, Baby) 81 mg PO DAILY@0800 [facility] Last Admin: 11/20/18 10:04 Dose: 81 mg Atenolol (Tenormin (Beta Elvia)) 50 mg PO DAILY [facility] Last Admin: 11/20/18 10:12 Dose: 50 mg Atorvastatin Calcium (Lipitor) 80 mg PO QHS [facility] Last Admin: 11/19/18 22:03 Dose: 80 mg Azathioprine (Imuran) 100 mg PO DAILY@0800 [facility] Last Admin: 11/20/18 10:03 Dose: 100 mg Budesonide (Budesonide Ec) 3 mg PO DAILY [facility] Last Admin: 11/20/18 10:06 Dose: 3 mg Calamine/Phenol (Calmoseptine Ointment) 1 applic TOPICAL TID [facility]; Protocol Clopidogrel Bisulfate (Plavix) 75 mg PO DAILY [facility] Last Admin: 11/20/18 10:12 Dose: 75 mg Dextrose (D50w Syringe) 0 gm IV X1 PRN; Protocol PRN Reason: Hypoglycemia Last Admin: 11/18/18 08:38 Dose: 12.5 gm Doxycycline Monohydrate (Doxycycline) 100 mg PO BID [facility] Last Admin: 11/20/18 10:06 Dose: 100 mg Furosemide (Lasix) 40 mg PO DAILY [facility] Last Admin: 11/20/18 10:06 Dose: 40 mg Glucagon () 1 mg IM .X1 PRN PRN Reason: Hypoglycemia Heparin Sodium (Beef Lung) (Heparin 500 Unit/5 Ml (100/Ml)) 500 unit IV UD PRN PRN Reason: HEPARIN FLUSH Hydralazine HCl (Apresoline) 25 mg PO BID [facility] Last Admin: 11/20/18 10:04 Dose: 25 mg Sodium Chloride () 250 mls @ 15 mls/hr IV .[id number] PRN PRN Reason: SALINE FLUSH Last Admin: 11/15/18 10:12 Dose: 15 mls/hr Sodium Chloride () 1,000 mls @ 0 mls/hr IV .Q0M [facility] Insulin Glargine (Lantus (Bkc)) 45 units SC BREAKFAST [facility] Last Admin: 11/20/18 10:05 Dose: 45 u Insulin Human Lispro (Humalog Kwikpen (Bkc)) 0 unit SQ ACHS [facility]; Protocol Last Admin: 11/20/18 07:52 Dose: Not Given Isosorbide Mononitrate (Imdur) 60 mg PO DAILY [facility] Last Admin: 11/20/18 10:06 Dose: 60 mg Magnesium Hydroxide (Milk Of Magnesia) 30 ml PO DAILY PRN PRN PRN Reason: Constipation Metoprolol Tartrate (Lopressor (Beta Elvia)) 2.5 mg IV Q6H PRN PRN Reason: BLOOD PRESSURE ELEVATION Last Admin: 11/15/18 14:41 Dose: 2.5 mg Nitroglycerin (Nitrostat) 0.4 mg SUBLINGUAL Q5M PRN PRN Reason: CARDIAC/CHEST PAIN Last Admin: 11/19/18 21:57 Dose: 0.4 mg Nystatin (Mycostatin Powder) 1 applic TOPICAL BID [facility]; Protocol Last Admin: 11/20/18 10:11 Dose: 1 applic Ondansetron HCl (Zofran) 4 mg IV Q6H PRN PRN PRN Reason: NAUSEA Last Admin: 11/18/18 18:47 Dose: 4 mg Ranolazine (Ranexa) 500 mg PO BID [facility] Sodium Chloride () 5 - 15 ml IV UD PRN PRN Reason: SALINE FLUSH Last Admin: 11/18/18 08:34 Dose: 10 ml Sodium Chloride ([place] Nasal [place]) 2 spray NASAL TID PRN PRN PRN Reason: NASAL DRYNESS Last Admin: 11/17/18 07:57 Dose: 2 spray Medical Necessity - Tobacco Use Smoking Status: Never smoker Assessment/Plan All Active Problems (Last Reviewed 11/20/18 @ 09:21 by Greyson Bruno MD) GI bleed (Acute) Acute coronary syndrome (Acute) Non-STEMI (non-ST elevated myocardial infarction) (Acute) Hypercholesterolemia (Acute) Congestive heart failure of unknown etiology (Acute) Abnormal EKG (Acute) 1. 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 per cardiology, if hemoglobin remained stable and there is no further epistasis on dual antiplatelet therapy, will consider staged PCI of proximal/mid LAD followed by staged PCI of PL and PDA. Would consider staged PCI versus CABG given location of lesions and doubtful ability to bypass PL branch. 2D echo as under 2. per cardiology, to reassess for timing of cardiac cath on Wednesday o.a of her kidney function in light of her frail state, and new onset of rectal bleeding, patient may not be able to tolerate cardiac cath and stents, and may benefit from medical management. will discuss with cardiology 2. Rectal bleeding ? due to hemorrhoids had rectal bleeding last night, with passage of clots stool occult blood done was positive on aspirin and plavix general surgery consulted as patient has never had a colonoscopy before. per general surgery, to defer colonoscopy until she has completed treatment for the nonSTEMI 3. Acute diastolic heart failure BNP was >2000. CXR as under 1 2D echo done showed moderate concentric LVH with EF of 50%, stage I diastolic dysfunction and mild hypokinesis of mid anteroseptal and lateral basal pillai. RVSP was 48 mmHg. on Imdur and hydralazine fluid restriction to 1500cc every 24 hours. on PO lasix 40mg daily awaiting nephrology rec's 4. Acute hypoxic respiratory failure due to acute diastolic heart failure and NSTEMI resolved now on room air. continue duonebs breathing treatments 4. Severe sepsis possibly due to cellulitis SIRS criteria is now 0/4 on PO doxycycline. 5. Epistaxis had epistaxis from left nostril overnight. Had stopped at time of review right nostril cauterised by ENT if epistaxis recurs, to call ENT for cautery 6. CKD 4: Cr is to 2.64 today; awaiting nephrology rec's continue PO lasix 40mg daily. 7. Acute blood loss anemia: Hb today is 8.4 today; now also having rectal bleeding. Had chest pain overnight. in light of cardiac condition and recurrent epistaxis, per discussion with cardiology, will transfuse one unit of PRBC to optimise patient 8. Hypertension: on atenolol 50mg daily hydralazine and imdur. Fairly controlled for age. 9. Diabetes mellitus: A1C 5.4. On insulin glargine 45 units subcu. Insulin sliding scale. Accu-Cheks AC at bedtime. 10. Non-anion gap metabolic acidosis: bicarb is 18. likely due to CKD. WIll monitor DVT prophylaxis: SCDs o/a of epistaxis. Code Visit Inpatient E&M: 70457 Subs Hosp L3
[2018-11-20] MEDS: Menthol/Lanolin/Calamine/Znox 113 GM Tube 1 APPLIC TOPICAL ×2 (11:36→22:20)
[2018-11-20] MEDS: Ranolazine 500 MG Tablet PO ×2 (11:37→22:21)
[2018-11-20 11:42] LABS: Bedside Glucose 129 mg/dL (70-110)
--- NOTE | 2018-11-20 11:46 | PN_ITS ---
Patient Problems: Active and Suspected Problems (Last Reviewed 11/20/18 @ 09:21 by Greyson Bruno MD) GI bleed (Acute) Acute coronary syndrome (Acute) Non-STEMI (non-ST elevated myocardial infarction) (Acute) Hypercholesterolemia (Acute) Congestive heart failure of unknown etiology (Acute) Abnormal EKG (Acute) Subjective: Patient seen and examined. She complains of feeling very fatigued. She had a nosebleed from her left nostril yesterday. This is new as previously had been from the right nostril only. She also complains of rectal bleeding with passage of clots. She thinks this may be due to hemorrhoids. She is never had a colonoscopy before in her life but states she had a previous EGD which was normal. Indication for EGD according to patient's was on account of her diabetes suspecting that she was possibly being assessed for gastroparesis. She denies any shortness of breath, palpitations or dizziness, abdominal pain, diarrhea vomiting. She did complain of chest pain overnight which was squeezing in nature and was relieved by sublingual nitroglycerin. Review of systems otherwise negative. Labs and vitals reviewed. Vitals/I&O's: Vital Signs Temp Pulse Resp BP Pulse Ox 98.6 F 86 19 H 141/71 H 98 11/20/18 09:59 11/20/18 10:04 11/20/18 09:59 11/20/18 09:59 11/20/18 09:59 Oxygen Flow Rate (L/min) 98 Oxygen Delivery Method Room Air Weight: 173 lb 1.006 oz Body Mass Index (BMI) 31.1 Finger Stick Blood Glucose 159 Intake and Output for Last 24 Hours 11/18/18 11/19/18 11/20/18 23:59 23:59 23:59 Intake Total 3651 / 3651 1680 / 1680 150 / 150 Output Total 600 / 600 750 / 750 Balance 3051 / 3051 930 / 930 150 / 150 General: Alert, Oriented x3, Cooperative, No apparent distress HEENT: Atraumatic, PERRLA, EOMI, Normocephalic Oral: Moist Mucosa, - - scanty dried blood in right nasal mucosa Neck: Supple, No JVD, Negative Carotid Bruits Lungs: - - clear to auscultation. On room air Cardiovascular: Regular rate, Regular Rhythm, Normal S1, Normal S2, No murmurs Abdomen: Bowel Sounds Present, Soft, Non Tender, Non-Distended, No Hepato- splenomegaly Extremities: No clubbing, No cyanosis, No edema, Capillary Refill Less than 3 Seconds Skin: - - superficial ulceration of right lateral LE; no redness, tenderness or discharge. Musculoskeletal: No Tenderness to Palpation of Joints or Extremities Lymphatic: No Cervical, Supraclavicular, or Inguinal Adenopathy Neurological: Cranial nerves II-XII grossly intact, Neuro grossly intact, Motor Exam 5/5 strength throughout Psych/Mental Status: Normal Affect, Appropriate, Alert and oriented to time, place, person, mood and affect Microbiology Past 72 Hours 11/15/18 06:40 Blood Culture (Wb) - Right Hand Blood Culture - Final No growth in 5 days. 11/15/18 06:45 Blood Culture (Wb) - Anticubital Right Blood Culture - Final No growth in 5 days. 11/19/18 22:30 Stool Stool Occult Blood (WILL) - Final Occult Blood Positive Laboratory Results 11/19/18 16:12: POC Glucose 137 H 11/19/18 22:01: POC Glucose 202 H 11/20/18 03:51: Sodium 141, Potassium 4.0, Chloride 110 H, Carbon Dioxide 18.0 L , BUN 92 H, Creatinine 2.64 H, Estim Creat Clear Calc 14.34, Est GFR (MDRD) Af Amer 23 L, Est GFR (MDRD) Non-Af 19 L, BUN/Creatinine Ratio 34.8 H, Glucose 104, Calcium 7.5 L, Phosphorus 5.6 H, Albumin 2.2 L 11/20/18 03:55: WBC 7.1, RBC 2.29 L, Hgb 8.4 L, Hct 26.1 L, MCV 114.0 H, MCH 36.7 H, MCHC 32.2, RDW 14.7 H, RDW Differential 56.9 H, Plt Count 174, MPV 11.0, Immature Gran % (Auto) 0.800, Neut % (Auto) 61.6, Lymph % (Auto) 28.2, [place] % (Auto) 6.3, Eos % (Auto) 2.7, Baso % (Auto) 0.4, Absolute Neuts (auto) 4.4, Absolute Lymphs (auto) 2.00, Total Counted Not Reportable 11/20/18 07:08: POC Glucose 104 Current Medications Acetaminophen (Tylenol) 650 mg PO Q6H PRN PRN PRN Reason: PAIN Last Admin: 11/20/18 10:09 Dose: 650 mg Aspirin (Aspirin, Baby) 81 mg PO DAILY@0800 [facility] Last Admin: 11/20/18 10:04 Dose: 81 mg Atenolol (Tenormin (Beta Elvia)) 50 mg PO DAILY [facility] Last Admin: 11/20/18 10:12 Dose: 50 mg Atorvastatin Calcium (Lipitor) 80 mg PO QHS [facility] Last Admin: 11/19/18 22:03 Dose: 80 mg Azathioprine (Imuran) 100 mg PO DAILY@0800 [facility] Last Admin: 11/20/18 10:03 Dose: 100 mg Budesonide (Budesonide Ec) 3 mg PO DAILY [facility] Last Admin: 11/20/18 10:06 Dose: 3 mg Calamine/Phenol (Calmoseptine Ointment) 1 applic TOPICAL TID [facility]; Protocol Clopidogrel Bisulfate (Plavix) 75 mg PO DAILY [facility] Last Admin: 11/20/18 10:12 Dose: 75 mg Dextrose (D50w Syringe) 0 gm IV X1 PRN; Protocol PRN Reason: Hypoglycemia Last Admin: 11/18/18 08:38 Dose: 12.5 gm Doxycycline Monohydrate (Doxycycline) 100 mg PO BID [facility] Last Admin: 11/20/18 10:06 Dose: 100 mg Furosemide (Lasix) 40 mg PO DAILY [facility] Last Admin: 11/20/18 10:06 Dose: 40 mg Glucagon () 1 mg IM .X1 PRN PRN Reason: Hypoglycemia Heparin Sodium (Beef Lung) (Heparin 500 Unit/5 Ml (100/Ml)) 500 unit IV UD PRN PRN Reason: HEPARIN FLUSH Hydralazine HCl (Apresoline) 25 mg PO BID [facility] Last Admin: 11/20/18 10:04 Dose: 25 mg Sodium Chloride () 250 mls @ 15 mls/hr IV .[id number] PRN PRN Reason: SALINE FLUSH Last Admin: 11/15/18 10:12 Dose: 15 mls/hr Sodium Chloride () 1,000 mls @ 0 mls/hr IV .Q0M [facility] Insulin Glargine (Lantus (Bkc)) 45 units SC BREAKFAST [facility] Last Admin: 11/20/18 10:05 Dose: 45 u Insulin Human Lispro (Humalog Kwikpen (Bkc)) 0 unit SQ ACHS [facility]; Protocol Last Admin: 11/20/18 07:52 Dose: Not Given Isosorbide Mononitrate (Imdur) 60 mg PO DAILY [facility] Last Admin: 11/20/18 10:06 Dose: 60 mg Magnesium Hydroxide (Milk Of Magnesia) 30 ml PO DAILY PRN PRN PRN Reason: Constipation Metoprolol Tartrate (Lopressor (Beta Elvia)) 2.5 mg IV Q6H PRN PRN Reason: BLOOD PRESSURE ELEVATION Last Admin: 11/15/18 14:41 Dose: 2.5 mg Nitroglycerin (Nitrostat) 0.4 mg SUBLINGUAL Q5M PRN PRN Reason: CARDIAC/CHEST PAIN Last Admin: 11/19/18 21:57 Dose: 0.4 mg Nystatin (Mycostatin Powder) 1 applic TOPICAL BID [facility]; Protocol Last Admin: 11/20/18 10:11 Dose: 1 applic Ondansetron HCl (Zofran) 4 mg IV Q6H PRN PRN PRN Reason: NAUSEA Last Admin: 11/18/18 18:47 Dose: 4 mg Ranolazine (Ranexa) 500 mg PO BID [facility] Sodium Chloride () 5 - 15 ml IV UD PRN PRN Reason: SALINE FLUSH Last Admin: 11/18/18 08:34 Dose: 10 ml Sodium Chloride ([place] Nasal [place]) 2 spray NASAL TID PRN PRN PRN Reason: NASAL DRYNESS Last Admin: 11/17/18 07:57 Dose: 2 spray Medical Necessity - Tobacco Use Smoking Status: Never smoker Assessment/Plan All Active Problems (Last Reviewed 11/20/18 @ 09:21 by Greyson Bruno MD) GI bleed (Acute) Acute coronary syndrome (Acute) Non-STEMI (non-ST elevated myocardial infarction) (Acute) Hypercholesterolemia (Acute) Congestive heart failure of unknown etiology (Acute) Abnormal EKG (Acute) 1. 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 * per cardiology, if hemoglobin remained stable and there is no further epistasis on dual antiplatelet therapy, will consider staged PCI of proximal/mid LAD followed by staged PCI of PL and PDA. Would consider staged PCI versus CABG given location of lesions and doubtful ability to bypass PL branch. * 2D echo as under 2. * per cardiology, to reassess for timing of cardiac cath on Wednesday o.a of her kidney function * in light of her frail state, and new onset of rectal bleeding, patient may not be able to tolerate cardiac cath and stents, and may benefit from medical management. will discuss with cardiology * 2. Rectal bleeding ? due to hemorrhoids * had rectal bleeding last night, with passage of clots * stool occult blood done was positive * on aspirin and plavix * general surgery consulted as patient has never had a colonoscopy before. * per general surgery, to defer colonoscopy until she has completed treatment for the nonSTEMI * * 3. Acute diastolic heart failure * BNP was >2000. CXR as under 1 * 2D echo done showed moderate concentric LVH with EF of 50%, stage I diastolic dysfunction and mild hypokinesis of mid anteroseptal and lateral basal pillai. RVSP was 48 mmHg. * on Imdur and hydralazine * fluid restriction to 1500cc every 24 hours. * on PO lasix 40mg daily * awaiting nephrology rec's * 4. Acute hypoxic respiratory failure due to acute diastolic heart failure and NSTEMI * resolved * now on room air. * continue duonebs breathing treatments * 4. Severe sepsis possibly due to cellulitis * SIRS criteria is now 0/4 * on PO doxycycline. * 5. Epistaxis * had epistaxis from left nostril overnight. Had stopped at time of review * right nostril cauterised by ENT * if epistaxis recurs, to call ENT for cautery * 6. CKD 4: * Cr is to 2.64 today; * awaiting nephrology rec's * continue PO lasix 40mg daily. * 7. Acute blood loss anemia: * Hb today is 8.4 today; * now also having rectal bleeding. Had chest pain overnight. * in light of cardiac condition and recurrent epistaxis, per discussion with cardiology, will transfuse one unit of PRBC to optimise patient * 8. Hypertension: on atenolol 50mg daily hydralazine and imdur. Fairly controlled for age. 9. Diabetes mellitus: A1C 5.4. On insulin glargine 45 units subcu. Insulin sliding scale. Accu-Cheks AC at bedtime. 10. Non-anion gap metabolic acidosis: bicarb is 18. likely due to CKD. WIll monitor DVT prophylaxis: SCDs o/a of epistaxis. Code Visit Inpatient E&M: 59743 Subs Hosp L3
[2018-11-20] MEDS: 0.9% NaCl Peripheral Flush Adult/Peds IV ×2 (12:36→22:45)
[2018-11-20] MEDS: Ondansetron 4 MG/2 ML Vial IV ×2 (12:36→22:44)
--- NOTE | 2018-11-20 14:15 | PCM.CONS.R ---
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 She had associated shortness of breath. She was diagnosed with CHF and was treated with IV Lasix therapy. She underwent heart catheterization on 11/16/18 for NSTEMI with positive troponin level up to 4.7. Creatinine on admission was 2.05 progressed to 2.69 yesterday now at 2.64 today. BNP was elevated at 2699 on admission. Currently she is nonoliguric on IV Lasix. She apparently was started on Bumex by her PCP as an outpatient for fluid overload. Chest x-ray showed mild cardiomegaly with chronic interstitial changes in the lungs with no pleural effusion on admission. EKG showed T wave inversions in the inferior lateral leads concern for ischemia. Patient was initially hypoxic with saturation in the 80s. Currently O2 sat stable on room air. She was also treated for cellulitis of her right lower extremity with 2 courses of antibiotic therapy most recent with Keflex as an outpatient. She had painful dark spots on the lateral aspect of her right leg that worsened the past 2 weeks despite outpatient antibiotic therapy. Her white count was elevated at 14 K on admission and was evaluated for sepsis. Blood cultures have been negative so far. She was treated with IV antibiotic therapy since admission with Zosyn and dose of vancomycin now switched to oral doxycycline. Today she complains of diarrhea with bloody stools. She does have a history of hemorrhoids. General surgery was consulted. Hemoglobin was 8.1g today with positive guaiac. She denied fever or chills, cough, abdominal pain. She has persistent nausea despite cholecystectomy in May 2018. - Allergies Allergies: Allergies codeine Adverse Reaction (Verified 11/15/18 06:12) Hives pain medications Adverse Reaction (Intermediate, Uncoded 11/15/18 06:12) nausea/vomiting - Current Medications Current Medications: Current Medications Acetaminophen (Tylenol) 650 mg PO Q6H PRN PRN PRN Reason: PAIN Last Admin: 11/20/18 10:09 Dose: 650 mg Aspirin (Aspirin, Baby) 81 mg PO DAILY@0800 [facility] Last Admin: 11/20/18 10:04 Dose: 81 mg Atenolol (Tenormin (Beta Elvia)) 50 mg PO DAILY [facility] Last Admin: 11/20/18 10:12 Dose: 50 mg Atorvastatin Calcium (Lipitor) 80 mg PO QHS [facility] Last Admin: 11/19/18 22:03 Dose: 80 mg Azathioprine (Imuran) 100 mg PO DAILY@0800 [facility] Last Admin: 11/20/18 10:03 Dose: 100 mg Budesonide (Budesonide Ec) 3 mg PO DAILY [facility] Last Admin: 11/20/18 10:06 Dose: 3 mg Calamine/Phenol (Calmoseptine Ointment) 1 applic TOPICAL TID [facility]; Protocol Last Admin: 11/20/18 11:36 Dose: 1 applic Clopidogrel Bisulfate (Plavix) 75 mg PO DAILY [facility] Last Admin: 11/20/18 10:12 Dose: 75 mg Dextrose (D50w Syringe) 0 gm IV X1 PRN; Protocol PRN Reason: Hypoglycemia Last Admin: 11/18/18 08:38 Dose: 12.5 gm Doxycycline Monohydrate (Doxycycline) 100 mg PO BID [facility] Last Admin: 11/20/18 10:06 Dose: 100 mg Furosemide (Lasix) 40 mg PO DAILY [facility] Last Admin: 11/20/18 10:06 Dose: 40 mg Glucagon () 1 mg IM .X1 PRN PRN Reason: Hypoglycemia Heparin Sodium (Beef Lung) (Heparin 500 Unit/5 Ml (100/Ml)) 500 unit IV UD PRN PRN Reason: HEPARIN FLUSH Hydralazine HCl (Apresoline) 25 mg PO BID [facility] Last Admin: 11/20/18 10:04 Dose: 25 mg Sodium Chloride () 250 mls @ 15 mls/hr IV .[id number] PRN PRN Reason: SALINE FLUSH Last Admin: 11/15/18 10:12 Dose: 15 mls/hr Sodium Chloride () 1,000 mls @ 0 mls/hr IV .Q0M [facility] Insulin Glargine (Lantus ([facility])) 45 units SC BREAKFAST [facility] Last Admin: 11/20/18 10:05 Dose: 45 u Insulin Human Lispro (Humalog Kwikpen ([facility])) 0 unit SQ ACHS [facility]; Protocol Last Admin: 11/20/18 11:36 Dose: Not Given Isosorbide Mononitrate (Imdur) 60 mg PO DAILY [facility] Last Admin: 11/20/18 10:06 Dose: 60 mg Magnesium Hydroxide (Milk Of Magnesia) 30 ml PO DAILY PRN PRN PRN Reason: Constipation Metoprolol Tartrate (Lopressor (Beta Elvia)) 2.5 mg IV Q6H PRN PRN Reason: BLOOD PRESSURE ELEVATION Last Admin: 11/15/18 14:41 Dose: 2.5 mg Nitroglycerin (Nitrostat) 0.4 mg SUBLINGUAL Q5M PRN PRN Reason: CARDIAC/CHEST PAIN Last Admin: 11/19/18 21:57 Dose: 0.4 mg Nystatin (Mycostatin Powder) 1 applic TOPICAL BID [facility]; Protocol Last Admin: 11/20/18 10:11 Dose: 1 applic Ondansetron HCl (Zofran) 4 mg IV Q6H PRN PRN PRN Reason: NAUSEA Last Admin: 11/20/18 12:36 Dose: 4 mg Ranolazine (Ranexa) 500 mg PO BID [facility] Last Admin: 11/20/18 11:37 Dose: 500 mg Sodium Chloride () 5 - 15 ml IV UD PRN PRN Reason: SALINE FLUSH Last Admin: 11/20/18 12:36 Dose: 10 ml Sodium Chloride (Pepin Nasal [place]) 2 spray NASAL TID PRN PRN PRN Reason: NASAL DRYNESS Last Admin: 11/17/18 07:57 Dose: 2 spray - Past Medical History Past Medical History (Chronic Problems): Chronic Problems (Last Reviewed 11/20/18 @ 09:21 by Greyson Bruno MD) Atherosclerotic heart disease of [place] coronary artery with other forms of angina pectoris (Chronic) PROX LAD: 75 % Stenosis; MID LAD: 85 % Stenosis; DIAGONAL 2: Proximal - Moderate luminal irregularities up to 50%; CIRCUMFLEX ARTERY: is occluded; RIGHT CORONARY ARTERY: Moderate calcification; PROX RCA: Mild luminal irregularities less than 30%; RT PLV: 75 % Stenosis; RT PDA: Mid - 75 % Stenosis (per [facility] Dr. Motta @ [facility] 11/16/2018) History of left heart catheterization (Chronic 11/16/18) PROX LAD: 75 % Stenosis; MID LAD: 85 % Stenosis; DIAGONAL 2: Proximal - Moderate luminal irregularities up to 50%; CIRCUMFLEX ARTERY: is occluded; RIGHT CORONARY ARTERY: Moderate calcification; PROX RCA: Mild luminal irregularities less than 30%; RT PLV: 75 % Stenosis; RT PDA: Mid - 75 % Stenosis (per [facility] Dr. Motta @ [facility] 11/16/2018) Hypertension (Chronic) - Past Surgical History Surgical History: cholecystectomy - Social History Marital Status: Smoking Status: Never smoker Alcohol: None - Family History Maternal Family History: Family History (Last Reviewed 06/07/18 @ 14:09 by Heike Pedraza) Father Heart disease History Items: Heart Disease Paternal Family History: Family History (Last Reviewed 06/07/18 @ 14:09 by Heike Pedraza) Father Heart disease History Items: Diabetes, Heart Disease Review of Systems Constitutional: Reports: Weakness. Denies: Anorexia, Chills, Fever Eyes: Denies: Vision Change HEENT: Reports: Head Aches - After receiving nitro for chest pain Cardiovascular: Reports: Chest Pain - Bilateral arm pain, Chest Pressure, Edema. Denies: Syncope Respiratory: Reports: Cough, Shortness of breath upon exertion Gastrointestinal: Reports: Diarrhea - New-onset, Hematochezia, Nausea. Denies: Abdominal Pain, Vomiting Genitourinary: Denies: Dysuria, Retention Musculoskeletal: Reports: Arm Pain - Associated with chest pain, Leg Pain - Right lateral leg at site of cellulitis Skin: Reports: Lesions - Right lateral leg dorsum of left foot and left great toe erythema Neurological: Denies: Change in Speech, Focal weakness, Tremor, Seizures Psychiatric: Reports: Anxiety, Depression Hematologic/ Lymphatic: Reports: Anemia. Denies: Hx of blood clot Patient Problems: Active and Suspected Problems (Last Reviewed 11/20/18 @ 09:21 by Greyson Bruno MD) GI bleed (Acute) Acute coronary syndrome (Acute) Non-STEMI (non-ST elevated myocardial infarction) (Acute) Hypercholesterolemia (Acute) Congestive heart failure of unknown etiology (Acute) Abnormal EKG (Acute) - Physical Exam General: Alert, Oriented x3, Cooperative, - - Pain from leg pain HEENT: PERRLA, EOMI Oral: Moist Mucosa Neck: Supple, No JVD Lungs: Rales - Bilateral bases Cardiovascular: Regular rate, Murmur, No rub noted Abdomen: Bowel Sounds Present, Soft, Non Tender, Non-Distended Extremities: Edema - 1+ pitting edema bilateral lower extremities Skin: Ulcer/ Wound - Right lateral leg, - - Cellulitis right lateral leg with punctated black lesions Musculoskeletal: No Muscle Wasting, Arthritic Changes Neurological: Cranial nerves II-XII grossly intact, Neuro grossly intact, - - Generalized weakness Psych/Mental Status: Normal Affect, Appropriate, Alert and oriented to time, place, person, mood and affect Vital Signs Temp Pulse Resp BP Pulse Ox 98.6 F 79 19 H 141/71 H 98 11/20/18 09:59 11/20/18 11:28 11/20/18 09:59 11/20/18 09:59 11/20/18 09:59 Oxygen Flow Rate (L/min) 98 Oxygen Delivery Method Room Air Weight: 78.5 kg Body Mass Index (BMI) 31.1 Finger Stick Blood Glucose 159 Intake and Output for Last 24 Hours 11/18/18 11/19/18 11/20/18 23:59 23:59 23:59 Intake Total 3651 / 3651 1680 / 1680 525 / 525 Output Total 600 / 600 750 / 750 Balance 3051 / 3051 930 / 930 525 / 525 Microbiology Past 72 Hours 11/15/18 06:40 Blood Culture - Final Blood Culture (Wb) - Right Hand No growth in 5 days. 11/15/18 06:45 Blood Culture - Final Blood Culture (Wb) - Anticubital Right No growth in 5 days. 11/19/18 22:30 Stool Occult Blood (WILL) - Final Stool Occult Blood Positive Laboratory Tests Past 24 Hrs 11/20/18 11/20/18 11/20/18 03:51 03:55 12:24 WBC 7.1 RBC 2.29 L Hgb 8.4 L Hct 26.1 L MCV 114.0 H MCH 36.7 H MCHC 32.2 RDW 14.7 H RDW Differential 56.9 H Plt Count 174 MPV 11.0 Immature Gran % (Auto) 0.800 Neut % (Auto) 61.6 Lymph % (Auto) 28.2 Gregory % (Auto) 6.3 Eos % (Auto) 2.7 Baso % (Auto) 0.4 Absolute Neuts (auto) 4.4 Absolute Lymphs (auto) 2.00 Total Counted Not Reportable Sodium 141 Potassium 4.0 Chloride 110 H Carbon Dioxide 18.0 L BUN 92 H Creatinine 2.64 H Estim Creat Clear Calc 14.34 Est GFR (MDRD) Af Amer 23 L Est GFR (MDRD) Non-Af 19 L BUN/Creatinine Ratio 34.8 H Glucose 104 Calcium 7.5 L Phosphorus 5.6 H Albumin 2.2 L Blood Type O POSITIVE Antibody Screen NEGATIVE Crossmatch See Detail POC Glucose 11/20/18 11/20/18 11/19/18 11:34 07:08 22:01 POC Glucose 129 H 104 202 H 11/19/18 16:12 POC Glucose 137 H Assessment/Plan All Active Problems (Last Reviewed 11/20/18 @ 09:21 by Greyson Bruno MD) GI bleed (Acute) Acute coronary syndrome (Acute) Non-STEMI (non-ST elevated myocardial infarction) (Acute) Hypercholesterolemia (Acute) Congestive heart failure of unknown etiology (Acute) Abnormal EKG (Acute) 1. Acute on chronic kidney disease stage IV likely due to ATN from IV contrast exposure status post heart catheterization on 11/16/18. Baseline creatinine 2.0 progressed to 2.69 yesterday. Creatinine 2.64 today. Remains nonoliguric on po Lasix. Discussed with patient and patient spouse at bedside regarding risk of contrast nephropathy requiring hemodialysis temporarily or permanently. They understand the potential risk of requiring hemodialysis following cardiac intervention. They are in agreement to initiate dialysis if needed. Currently no urgent need to initiate hemodialysis at this time. 2. Acute coronary syndrome, NSTEMI with positive troponins. Underwent heart catheterization on 11/16. There was discussion of pursuing PCI when renal function optimized. Episode of chest pain last night. We will continue to monitor renal function for now. Consider Mucomyst therapy prior to repeat cardiac procedure. 3. Acute ischemic CHF, symptoms improved with IV Lasix. Continue with oral Lasix therapy for now. Continues to have leg edema and rales. Increase Lasix to twice a day. 4. Acute GI bleed hemoglobin 8.1 g today. General surgery consulted. 5. Acute diarrhea check stool for C. difficile, enteric pathogens. 6. Anemia and check iron studies. 7. 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 Check intact PTH. Hold calcitriol. Currently on oral doxycycline with improvement in cellulitis. Blood cultures have been negative so far. Cytosis improved with IV antibiotic therapy during current hospitalization. 8. Metabolic acidosis due to CKD. Initial anion gap acidosis due to lactic acidosis.
--- NOTE | 2018-11-20 14:20 | CON.PCM_ITS ---
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 She had associated shortness of breath. She was diagnosed with CHF and was treated with IV Lasix therapy. She underwent heart catheterization on 11/16/18 for NSTEMI with positive troponin level up to 4.7. Creatinine on admission was 2.05 progressed to 2.69 yesterday now at 2.64 today. BNP was elevated at 2699 on admission. Currently she is nonoliguric on IV Lasix. She apparently was started on Bumex by her PCP as an outpatient for fluid overload. Chest x-ray showed mild cardiomegaly with chronic interstitial changes in the lungs with no pleural effusion on admission. EKG showed T wave inversions in the inferior lateral leads concern for ischemia. Patient was initially hypoxic with saturation in the 80s. Currently O2 sat stable on room air. She was also treated for cellulitis of her right lower extremity with 2 courses of antibiotic therapy most recent with Keflex as an outpatient. She had painful dark spots on the lateral aspect of her right leg that worsened the past 2 weeks despite outpatient antibiotic therapy. Her white count was elevated at 14 K on admission and was evaluated for sepsis. Blood cultures have been negative so far. She was treated with IV antibiotic therapy since admission with Zosyn and dose of vancomycin now switched to oral doxycycline. Today she complains of diarrhea with bloody stools. She does have a history of hemorrhoids. General surgery was consulted. Hemoglobin was 8.1g today with positive guaiac. She denied fever or chills, cough, abdominal pain. She has persistent nausea despite cholecystectomy in May 2018. - Allergies Allergies: Allergies codeine Adverse Reaction (Verified 11/15/18 06:12) Hives pain medications Adverse Reaction (Intermediate, Uncoded 11/15/18 06:12) nausea/vomiting - Current Medications Current Medications: Current Medications Acetaminophen (Tylenol) 650 mg PO Q6H PRN PRN PRN Reason: PAIN Last Admin: 11/20/18 10:09 Dose: 650 mg Aspirin (Aspirin, Baby) 81 mg PO DAILY@0800 [facility] Last Admin: 11/20/18 10:04 Dose: 81 mg Atenolol (Tenormin (Beta Elvia)) 50 mg PO DAILY [facility] Last Admin: 11/20/18 10:12 Dose: 50 mg Atorvastatin Calcium (Lipitor) 80 mg PO QHS [facility] Last Admin: 11/19/18 22:03 Dose: 80 mg Azathioprine (Imuran) 100 mg PO DAILY@0800 [facility] Last Admin: 11/20/18 10:03 Dose: 100 mg Budesonide (Budesonide Ec) 3 mg PO DAILY [facility] Last Admin: 11/20/18 10:06 Dose: 3 mg Calamine/Phenol (Calmoseptine Ointment) 1 applic TOPICAL TID [facility]; Protocol Last Admin: 11/20/18 11:36 Dose: 1 applic Clopidogrel Bisulfate (Plavix) 75 mg PO DAILY [facility] Last Admin: 11/20/18 10:12 Dose: 75 mg Dextrose (D50w Syringe) 0 gm IV X1 PRN; Protocol PRN Reason: Hypoglycemia Last Admin: 11/18/18 08:38 Dose: 12.5 gm Doxycycline Monohydrate (Doxycycline) 100 mg PO BID [facility] Last Admin: 11/20/18 10:06 Dose: 100 mg Furosemide (Lasix) 40 mg PO DAILY [facility] Last Admin: 11/20/18 10:06 Dose: 40 mg Glucagon () 1 mg IM .X1 PRN PRN Reason: Hypoglycemia Heparin Sodium (Beef Lung) (Heparin 500 Unit/5 Ml (100/Ml)) 500 unit IV UD PRN PRN Reason: HEPARIN FLUSH Hydralazine HCl (Apresoline) 25 mg PO BID [facility] Last Admin: 11/20/18 10:04 Dose: 25 mg Sodium Chloride () 250 mls @ 15 mls/hr IV .[id number] PRN PRN Reason: SALINE FLUSH Last Admin: 11/15/18 10:12 Dose: 15 mls/hr Sodium Chloride () 1,000 mls @ 0 mls/hr IV .Q0M [facility] Insulin Glargine (Lantus ([facility])) 45 units SC BREAKFAST [facility] Last Admin: 11/20/18 10:05 Dose: 45 u Insulin Human Lispro (Humalog Kwikpen ([facility])) 0 unit SQ ACHS [facility]; Protocol Last Admin: 11/20/18 11:36 Dose: Not Given Isosorbide Mononitrate (Imdur) 60 mg PO DAILY [facility] Last Admin: 11/20/18 10:06 Dose: 60 mg Magnesium Hydroxide (Milk Of Magnesia) 30 ml PO DAILY PRN PRN PRN Reason: Constipation Metoprolol Tartrate (Lopressor (Beta Elvia)) 2.5 mg IV Q6H PRN PRN Reason: BLOOD PRESSURE ELEVATION Last Admin: 11/15/18 14:41 Dose: 2.5 mg Nitroglycerin (Nitrostat) 0.4 mg SUBLINGUAL Q5M PRN PRN Reason: CARDIAC/CHEST PAIN Last Admin: 11/19/18 21:57 Dose: 0.4 mg Nystatin (Mycostatin Powder) 1 applic TOPICAL BID [facility]; Protocol Last Admin: 11/20/18 10:11 Dose: 1 applic Ondansetron HCl (Zofran) 4 mg IV Q6H PRN PRN PRN Reason: NAUSEA Last Admin: 11/20/18 12:36 Dose: 4 mg Ranolazine (Ranexa) 500 mg PO BID [facility] Last Admin: 11/20/18 11:37 Dose: 500 mg Sodium Chloride () 5 - 15 ml IV UD PRN PRN Reason: SALINE FLUSH Last Admin: 11/20/18 12:36 Dose: 10 ml Sodium Chloride ([place] Nasal [place]) 2 spray NASAL TID PRN PRN PRN Reason: NASAL DRYNESS Last Admin: 11/17/18 07:57 Dose: 2 spray - Past Medical History Past Medical History (Chronic Problems): Chronic Problems (Last Reviewed 11/20/18 @ 09:21 by Greyson Bruno MD) 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 Motta @ [facility] 11/16/2018) History of left heart catheterization (Chronic 11/16/18) PROX LAD: 75 % Stenosis; MID LAD: 85 % Stenosis; DIAGONAL 2: Proximal - Moderate luminal irregularities up to 50%; CIRCUMFLEX ARTERY: is occluded; RIGHT CORONARY ARTERY: Moderate calcification; PROX RCA: Mild luminal irregularities less than 30%; RT PLV: 75 % Stenosis; RT PDA: Mid - 75 % Stenosis (per [facility] Dr. Motta @ [facility] 11/16/2018) Hypertension (Chronic) - Past Surgical History Surgical History: cholecystectomy - Social History Marital Status: Smoking Status: Never smoker Alcohol: None - Family History Maternal Family History: Family History (Last Reviewed 06/07/18 @ 14:09 by Heike Pedraza) Father Heart disease History Items: Heart Disease Paternal Family History: Family History (Last Reviewed 06/07/18 @ 14:09 by Heike Pedraza) Father Heart disease History Items: Diabetes, Heart Disease Review of Systems Constitutional: Reports: Weakness. Denies: Anorexia, Chills, Fever Eyes: Denies: Vision Change HEENT: Reports: Head Aches - After receiving nitro for chest pain Cardiovascular: Reports: Chest Pain - Bilateral arm pain, Chest Pressure, Edema. Denies: Syncope Respiratory: Reports: Cough, Shortness of breath upon exertion Gastrointestinal: Reports: Diarrhea - New-onset, Hematochezia, Nausea. Denies: Abdominal Pain, Vomiting Genitourinary: Denies: Dysuria, Retention Musculoskeletal: Reports: Arm Pain - Associated with chest pain, Leg Pain - Right lateral leg at site of cellulitis Skin: Reports: Lesions - Right lateral leg dorsum of left foot and left great toe erythema Neurological: Denies: Change in Speech, Focal weakness, Tremor, Seizures Psychiatric: Reports: Anxiety, Depression Hematologic/ Lymphatic: Reports: Anemia. Denies: Hx of blood clot Patient Problems: Active and Suspected Problems (Last Reviewed 11/20/18 @ 09:21 by Greyson Bruno MD) GI bleed (Acute) Acute coronary syndrome (Acute) Non-STEMI (non-ST elevated myocardial infarction) (Acute) Hypercholesterolemia (Acute) Congestive heart failure of unknown etiology (Acute) Abnormal EKG (Acute) - Physical Exam General: Alert, Oriented x3, Cooperative, - - Pain from leg pain HEENT: PERRLA, EOMI Oral: Moist Mucosa Neck: Supple, No JVD Lungs: Rales - Bilateral bases Cardiovascular: Regular rate, Murmur, No rub noted Abdomen: Bowel Sounds Present, Soft, Non Tender, Non-Distended Extremities: Edema - 1+ pitting edema bilateral lower extremities Skin: Ulcer/ Wound - Right lateral leg, - - Cellulitis right lateral leg with punctated black lesions Musculoskeletal: No Muscle Wasting, Arthritic Changes Neurological: Cranial nerves II-XII grossly intact, Neuro grossly intact, - - Generalized weakness Psych/Mental Status: Normal Affect, Appropriate, Alert and oriented to time, place, person, mood and affect Vital Signs Temp Pulse Resp BP Pulse Ox 98.6 F 79 19 H 141/71 H 98 11/20/18 09:59 11/20/18 11:28 11/20/18 09:59 11/20/18 09:59 11/20/18 09:59 Oxygen Flow Rate (L/min) 98 Oxygen Delivery Method Room Air Weight: 78.5 kg Body Mass Index (BMI) 31.1 Finger Stick Blood Glucose 159 Intake and Output for Last 24 Hours 11/18/18 11/19/18 11/20/18 23:59 23:59 23:59 Intake Total 3651 / 3651 1680 / 1680 525 / 525 Output Total 600 / 600 750 / 750 Balance 3051 / 3051 930 / 930 525 / 525 Microbiology Past 72 Hours 11/15/18 06:40 Blood Culture - Final Blood Culture (Wb) - Right Hand No growth in 5 days. 11/15/18 06:45 Blood Culture - Final Blood Culture (Wb) - Anticubital Right No growth in 5 days. 11/19/18 22:30 Stool Occult Blood (WILL) - Final Stool Occult Blood Positive Laboratory Tests Past 24 Hrs 11/20/18 11/20/18 11/20/18 03:51 03:55 12:24 WBC 7.1 RBC 2.29 L Hgb 8.4 L Hct 26.1 L MCV 114.0 H MCH 36.7 H MCHC 32.2 RDW 14.7 H RDW Differential 56.9 H Plt Count 174 MPV 11.0 Immature Gran % (Auto) 0.800 Neut % (Auto) 61.6 Lymph % (Auto) 28.2 [place] % (Auto) 6.3 Eos % (Auto) 2.7 Baso % (Auto) 0.4 Absolute Neuts (auto) 4.4 Absolute Lymphs (auto) 2.00 Total Counted Not Reportable Sodium 141 Potassium 4.0 Chloride 110 H Carbon Dioxide 18.0 L BUN 92 H Creatinine 2.64 H Estim Creat Clear Calc 14.34 Est GFR (MDRD) Af Amer 23 L Est GFR (MDRD) Non-Af 19 L BUN/Creatinine Ratio 34.8 H Glucose 104 Calcium 7.5 L Phosphorus 5.6 H Albumin 2.2 L Blood Type O POSITIVE Antibody Screen NEGATIVE Crossmatch See Detail POC Glucose 11/20/18 11/20/18 11/19/18 11:34 07:08 22:01 POC Glucose 129 H 104 202 H 11/19/18 16:12 POC Glucose 137 H Assessment/Plan All Active Problems (Last Reviewed 11/20/18 @ 09:21 by Greyson Bruno MD) GI bleed (Acute) Acute coronary syndrome (Acute) Non-STEMI (non-ST elevated myocardial infarction) (Acute) Hypercholesterolemia (Acute) Congestive heart failure of unknown etiology (Acute) Abnormal EKG (Acute) 1. Acute on chronic kidney disease stage IV likely due to ATN from IV contrast exposure status post heart catheterization on 11/16/18. Baseline creatinine 2.0 progressed to 2.69 yesterday. Creatinine 2.64 today. Remains nonoliguric on po Lasix. Discussed with patient and patient spouse at bedside regarding risk of contrast nephropathy requiring hemodialysis temporarily or permanently. They understand the potential risk of requiring hemodialysis following cardiac intervention. They are in agreement to initiate dialysis if needed. Currently no urgent need to initiate hemodialysis at this time. 2. Acute coronary syndrome, NSTEMI with positive troponins. Underwent heart catheterization on 11/16. There was discussion of pursuing PCI when renal function optimized. Episode of chest pain last night. We will continue to monitor renal function for now. Consider Mucomyst therapy prior to repeat cardiac procedure. 3. Acute ischemic CHF, symptoms improved with IV Lasix. Continue with oral Lasix therapy for now. Continues to have leg edema and rales. Increase Lasix to twice a day. 4. Acute GI bleed hemoglobin 8.1 g today. General surgery consulted. 5. Acute diarrhea check stool for C. difficile, enteric pathogens. 6. Anemia and check iron studies. 7. 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 Check intact PTH. Hold calcitriol. Currently on oral doxycycline with improvement in cellulitis. Blood cultures have been negative so far. Cytosis improved with IV antibiotic therapy during current hospitalization. 8. Metabolic acidosis due to CKD. Initial anion gap acidosis due to lactic acidosis.
[2018-11-20 16:36] LABS: Bedside Glucose 74 mg/dL (70-110)
[2018-11-20] MEDS: Atorvastatin Calcium 80 MG Tablet PO (22:20)
[2018-11-20 22:21] LABS: Bedside Glucose 145 mg/dL (70-110)
[2018-11-20] MEDS: Acetylcysteine (Mucomyst Oral) 20% SOLN 600 MG PO (22:27)
[2018-11-21] VITALS (13 sets, daily range): BP systolic 116–164; BP diastolic 50–75; PULSE 75–86; RESP 16–20; TEMP 36.8–37.1; O2SAT 94–98
[2018-11-21 03:02] LABS: Red Blood Cells-Urine 0 SEEN /hpf (0-5)
[2018-11-21 03:06] LABS: Color, Urine Yellow (Yellow); Glucose, Dipstick Normal (Normal); Ketone-Dipstick Negative (Negative); Leukocyte Esterase-Dipstick 25 /ul (Negative); Nitrite-Dipstick Negative (Negative); Occult Blood-Urine Negative /ul (Negative); Protein-Dipstick 30 mg/dl (Negative); Urine Bilirubin Dipstick Negative (Negative); Urine Clarity Clear (Clear); Urine Urobilinogen Normal (Normal)
[2018-11-21 03:22] LABS: Bacteria RARE /hpf (None Seen); Mucous, Urine RARE /hpf (<or=2+); Squamous Epithelial Cells - UA 0-5 SEEN /hpf (5-10); White Blood Cells 0-5 SEEN /hpf (0-5)
--- NOTE | 2018-11-21 05:00 | EKG12_ITS ---
Test Reason : AM Blood Pressure : / mmHG Vent. Rate : 084 BPM Atrial Rate : 084 BPM P-R Int : 152 ms QRS Dur : 122 ms QT Int : 436 ms P-R-T Axes : 025 031 -69 degrees QTc Int : 515 ms Normal sinus rhythm Possible Left atrial enlargement Right bundle branch block T wave abnormality, consider lateral ischemia Abnormal ECG Confirmed by ИРИНА BRYSON, PADMA ([id number]), film editor OPHELIA SIERRA ([id number] on 11/23/2018 10:11:57 AM Referred By: Confirmed By:PADMA GIFFORD MD
[2018-11-21 05:07] LABS: Bedside Glucose 63 mg/dL (70-110)
[2018-11-21] MEDS: Dextrose 50%-Water 25 GM/50 ML DISP.SYRIN IV (05:10)
[2018-11-21] MEDS: 0.9% NaCl Peripheral Flush Adult/Peds IV ×2 (05:13→13:30)
[2018-11-21] MEDS: hydrALAZINE 25 MG Tablet PO ×2 (05:15→21:27)
[2018-11-21] MEDS: Aspirin 81 MG TAB.CHEW PO (05:15)
[2018-11-21] MEDS: Clopidogrel Bisulfate 75 MG Tablet PO (05:16)
[2018-11-21] MEDS: Isosorbide Mononitrate 60 MG Tablet PO (05:17)
[2018-11-21] MEDS: Ranolazine 500 MG Tablet PO ×2 (05:17→21:31)
[2018-11-21] MEDS: Atenolol 50 MG Tablet PO (05:17)
[2018-11-21] MEDS: Acetylcysteine (Mucomyst Oral) 20% SOLN 600 MG PO ×2 (05:19→21:55)
[2018-11-21 05:22] LABS: Hematocrit 30.9 % (37-47); Mean Corp Hgb Conc 32.4 g/gl (32-36); Mean Corpuscular Hgb 35.3 pg (27.0-32.0); Mean Corpuscular Volume 109.2 fL (81-99); Mean Platelet Vol. 10.6 fl (6.2-12.0); Platelet Count 202 K/mm3 (150-450); RBC Distribution Width CV 16.8 % (11.6-14.6); Red Blood Count 2.83 M/mm3 (4.2-5.4); White Blood Count 8.3 K/mm3 (4.4-11.0)
[2018-11-21 05:23] LABS: Scan Indicated on CBC? Y/N NO
[2018-11-21] MEDS: azaTHIOprine 50 MG Tablet 100 MG PO (05:25)
[2018-11-21 05:27] LABS: Partial Thromboplast Time 36.8 Seconds (24.1-36.2)
[2018-11-21 05:35] LABS: Albumin, Serum 2.3 g/dL (3.2-5.0); BUN 89 mg/dL (7-18); BUN/Creat Ratio 34.4 RATIO (10-20); Calcium,Total 7.7 mg/dL (8.5-10.1); Chloride 111 mmol/L (98-107); Creatinine, Serum 2.59 mg/dL (0.55-1.02); EST Glomerular Filtration Rate 19 mL/min (>60); Est Glom Filt Rate - Afr Amer 23 mL/min (>60); Estimated Creatinine Clearance 14.62 ml/min; Glucose 63 mg/dL (74-106); Phosphorus 5.6 mg/dL (2.5-4.9); Potassium 3.8 mmol/L (3.5-5.1); Sodium Level 141 mmol/L (136-145)
[2018-11-21] MEDS: Acetaminophen 325 MG Tablet 650 MG PO ×3 (05:49→21:36)
[2018-11-21 08:16] LABS: Bedside Glucose 79 mg/dL (70-110)
[2018-11-21 08:57] LABS: PTHIN 186.9 pg/mL (18.4-80.1)
--- NOTE | 2018-11-21 09:00 | PN.CARD_ITS ---
Subjectve: Patient doing well this morning. Patient received a single unit of PRBCs yesterday and hemoglobin remained stable at 10.0. Creatinine mildly improved, and patient admits to an episode of chest pain this past weekend similar to her previous angina. Otherwise no other 24-hour events. Telemetry shows normal sinus rhythm, no ventricular arrhythmias. No further lower GI bleeding or nosebleeding. Objective: Vital Signs Temp Pulse Resp BP Pulse Ox 98.2 F 76 16 136/61 H 97 11/21/18 04:00 11/21/18 06:58 11/21/18 04:00 11/21/18 05:15 11/21/18 07:25 Oxygen Flow Rate (L/min) 98 Oxygen Delivery Method Room Air Weight: 174 lb 13.225 oz Body Mass Index (BMI) 31.1 Finger Stick Blood Glucose 159 Intake and Output for Last 24 Hours 11/19/18 11/20/18 11/21/18 23:59 23:59 23:59 Intake Total 1680 / 1680 1505 / 1505 50 / 50 Output Total 750 / 750 Balance 930 / 930 1505 / 1505 50 / 50 General: Awake, Alert, Oriented x 3 HEENT: PERRL, EOMI, Sclera Non Icteric Neck: Supple, Good ROM, No Lymph Node Enlargement Lungs: Clear to auscultation Cardiovascular: Regular Rhythm, Normal S1, Normal S2, No Murmurs, No Rubs, No Gallops Vascular: No Carotid Bruits, Normal Femoral Pulses, Normal Radial Pulses, Normal Dorsalis Pedal Pulse, Normal Posterior Tibial Pulses Abdomen: Bowel Sounds Present, Soft, Non Tender, No HSM, No Organomegaly Extremities: No Cyanosis, No Clubbing, No edema Neurological: No Focal Motor or Sensory Deficit 11/21/18 02:56: Urine Color Yellow, Urine Clarity Clear, Urine pH 5.0, Ur Specific Holt 1.010, Urine Protein 30 H, Urine Glucose (UA) Normal, Urine Ketones Negative, Urine Occult Blood Negative, Urine Nitrite Negative, Urine Bilirubin Negative, Urine Urobilinogen Normal, Ur Leukocyte Esterase 25 H, Urine RBC 0 SEEN, Urine WBC 0-5 SEEN 11/21/18 05:02: Sodium 141, Potassium 3.8, Chloride 111 H, Carbon Dioxide 18.0 L , BUN 89 H, Creatinine 2.59 H, Est GFR (MDRD) Af Amer 23 L, Est GFR (MDRD) Non- Af 19 L, BUN/Creatinine Ratio 34.4 H, Glucose 63 L, Calcium 7.7 L, Phosphorus 5.6 H 11/21/18 05:02: WBC 8.3, RBC 2.83 L, Hgb 10.0 L, Hct 30.9 L, MCV 109.2 H, MCH 35.3 H, MCHC 32.4, RDW 16.8 H, RDW Differential 64.0 H, Plt Count 202, MPV 10.6 11/21/18 05:02: APTT 36.8 H Rhythm: EKG: ECHO: Stress Test: Cardiac Cath: PCI: CT Surgery: Holter monitor: EPS: PPM: CXR: Chest CT Scan: Medical Necessity - Tobacco Use Smoking Status: Never smoker Assessment/Plan 1. Congestive heart failure: The patient has signs and symptoms of biventricular congestive heart failure. Echocardiogram shows an EF around 50%, with RVSP of 48 mmHg. After her initial presentation of acute heart failure, I recommended that she reduce her atenolol down to 50 mg daily while she is stabilizing with congestive heart failure of new onset. In addition she will continue baby aspirin, Plavix. Given her chronic renal insufficiency she is a poor candidate for DEWEY inhibitors or ARB's. Eventually would like to transition her to imdur/hydralazine for afterload reduction. Patient underwent angiogram on 11/16/18 after she was diuresed for congestive heart failure and was able to lay down flat. This was done without an LV angiogram to conserve dye and protect her kidneys. This demonstrated an occluded left circumflex which was small, 2 tandem lesions in the mid LAD, calcified right coronary artery with nonobstructive proximal mid and distal disease with evidence of proximal posterior lateral stenosis in mid PDA stenosis as well. Any intervention was postponed to ensure the patient had no additional bleeding issues with her nose or from GI. Patient was switched from Brilinta to Plavix, and has been tolerating baby aspirin and Plavix well. She has had a small increase in her creatinine, and was chest pain-free up until this weekend. The patient received a single unit of PRBCs to increase her hemoglobin above 10.0. She has had no further chest pain after transfusion. Creatinine seemed to be worsening the day after cath suggesting either we are revealing what her true creatinine is, or she has had some component of ATN after diuresis and minimal IV contrast dye exposure. This may be a result of a combination of diuresis, stage IV renal disease, and exposure to IV contrast dye. At this point I do not believe the patient is a good cardiovascular surgical candidate as it is doubtful that any bypass of the circumflex system could take place, as well as the location of the lesions in the LAD and the posterior lateral branch making revascularization somewhat challenging from a surgical standpoint. My preference would be for a staged procedure of her LAD followed in several weeks time with angioplasty of her proximal posterior lateral branch. Patient has had IV fluids for several days time, and despite this her creatinine appeared to worsen, combined with oliguric urine output.. Recommend increasing her hydralazine to 25 mill grams p.o. twice daily for her hypertension and for afterload reduction. Very much appreciate renal consult and input. After long and thorough discussion with the patient's family, it appears the patient will require hemodialysis at some point in the future. As she has remained without a drop in her hemoglobin, and her creatinine is mildly improving, I believe it is reasonable to proceed cautiously with intervention of her LAD tomorrow morning, followed in several weeks with intervention of her posterior lateral branch. There is a high likelihood the patient may develop temporary or permanent renal insufficiency which is been thoroughly explained to the patient and her family. Should a dialysis catheter be needed, would recommend placing it either subclavian, or left femoral vein. This will allow us to proceed with intervention via the right groin. 2. Chronic renal insufficiency: Given the patient's chronic renal insufficiency as she is at high risk for temporary or permanent renal insufficiency from acute tubular necrosis from IV contrast dye exposure. Work with Dr. Pearson for possible impending need for hemodialysis. 3. Hyperlipidemia: Recommend obtaining a fasting profile. Her LDL should be less than 70 given her diabetes and non-STEMI. 4. Anemia: The patient has had several episodes of nosebleed, but has not had any in several days, and her bright red blood per rectum has resolved as well. Her hemoglobin remained stable after 1 unit of PRBCs. Would recommend keeping her hemoglobin above 10.0 to refrain from angina. Would also recommend starting PPI therapy with Protonix 20 mg p.o. daily to avoid possible GI bleeding in the future. 5. Thank you very much for the opportunity to participate in in the cardiac care of your patient. We will discuss with the family the options regarding the timing of intervention, but would not recommend discharge home until she has had her LAD repaired. Code Visit Inpatient E&M: 14767 Subs Hosp L2
--- NOTE | 2018-11-21 09:37 | PCM.PN.HOSP ---
Patient Problems: Active and Suspected Problems (Last Reviewed 11/20/18 @ 09:21 by Greyson Bruno MD) GI bleed (Acute) Acute coronary syndrome (Acute) Non-STEMI (non-ST elevated myocardial infarction) (Acute) Hypercholesterolemia (Acute) Congestive heart failure of unknown etiology (Acute) Abnormal EKG (Acute) Subjective: Patient seen and examined. She feels better today. She did not have any rectal bleeding overnight and epistasis also did not recur. She received 1 unit of packed red blood cell yesterday and chest pain did not recur overnight. Review of systems otherwise negative. Labs and vitals reviewed. Discussed with Dr. Motta. To go for cardiac cath tomorrow for possible intervention in the LAD. Vitals/I&O's: Vital Signs Temp Pulse Resp BP Pulse Ox 98.2 F 76 16 136/61 H 97 11/21/18 04:00 11/21/18 06:58 11/21/18 04:00 11/21/18 05:15 11/21/18 07:25 Oxygen Flow Rate (L/min) 98 Oxygen Delivery Method Room Air Weight: 174 lb 13.225 oz Body Mass Index (BMI) 31.1 Finger Stick Blood Glucose 159 Intake and Output for Last 24 Hours 11/19/18 11/20/18 11/21/18 23:59 23:59 23:59 Intake Total 1680 / 1680 1505 / 1505 50 / 50 Output Total 750 / 750 Balance 930 / 930 1505 / 1505 50 / 50 General: Alert, Oriented x3, Cooperative, No apparent distress HEENT: Atraumatic, PERRLA, EOMI, Normocephalic Oral: Moist Mucosa, Neck: Supple, No JVD, Negative Carotid Bruits Lungs: - - clear to auscultation. On room air Cardiovascular: Regular rate, Regular Rhythm, Normal S1, Normal S2, No murmurs Abdomen: Bowel Sounds Present, Soft, Non Tender, Non-Distended, No Hepato-splenomegaly Extremities: No clubbing, No cyanosis, No edema, Capillary Refill Less than 3 Seconds Skin: - - superficial ulceration of right lateral LE; no redness, tenderness or discharge. Musculoskeletal: No Tenderness to Palpation of Joints or Extremities Lymphatic: No Cervical, Supraclavicular, or Inguinal Adenopathy Neurological: Cranial nerves II-XII grossly intact, Neuro grossly intact, Motor Exam 5/5 strength throughout Psych/Mental Status: Normal Affect, Appropriate, Alert and oriented to time, place, person, mood and affect Microbiology Past 72 Hours 11/15/18 06:40 Blood Culture (Wb) - Right Hand Blood Culture - Final No growth in 5 days. 11/15/18 06:45 Blood Culture (Wb) - Anticubital Right Blood Culture - Final No growth in 5 days. 11/19/18 22:30 Stool Stool Occult Blood (WILL) - Final Occult Blood Positive Laboratory Results 11/20/18 11:34: POC Glucose 129 H 11/20/18 12:24: Blood Type O POSITIVE, Antibody Screen NEGATIVE, Crossmatch See Detail 11/20/18 16:26: POC Glucose 74 11/20/18 22:18: POC Glucose 145 H 11/21/18 02:56: Urine Color Yellow, Urine Clarity Clear, Urine pH 5.0, Ur Specific [place] 1.010, Urine Protein 30 H, Urine Glucose (UA) Normal, Urine Ketones Negative, Urine Occult Blood Negative, Urine Nitrite Negative, Urine Bilirubin Negative, Urine Urobilinogen Normal, Ur Leukocyte Esterase 25 H, Urine RBC 0 SEEN, Urine WBC 0-5 SEEN, Ur Squamous Epith Cells 0-5 SEEN, Urine Bacteria RARE, Urine Mucus RARE 11/21/18 05:00: POC Glucose 63 L 11/21/18 05:02: Sodium 141, Potassium 3.8, Chloride 111 H, Carbon Dioxide 18.0 L, BUN 89 H, Creatinine 2.59 H, Estim Creat Clear Calc 14.62, Est GFR (MDRD) Af Amer 23 L, Est GFR (MDRD) Non-Af 19 L, BUN/Creatinine Ratio 34.4 H, Glucose 63 L, Calcium 7.7 L, Phosphorus 5.6 H, Albumin 2.3 L 11/21/18 05:02: PTH Intact 186.9 H 11/21/18 05:02: WBC 8.3, RBC 2.83 L, Hgb 10.0 L, Hct 30.9 L, MCV 109.2 H, MCH 35.3 H, MCHC 32.4, RDW 16.8 H, RDW Differential 64.0 H, Plt Count 202, MPV 10.6 11/21/18 05:02: APTT 36.8 H 11/21/18 08:06: POC Glucose 79 Current Medications Acetaminophen (Tylenol) 650 mg PO Q6H PRN PRN PRN Reason: PAIN Last Admin: 11/21/18 05:49 Dose: 650 mg Acetylcysteine (Mucomyst) 600 mg PO BID [facility] Last Admin: 11/21/18 05:19 Dose: 600 mg Aspirin (Aspirin, Baby) 81 mg PO DAILY@0800 [facility] Last Admin: 11/21/18 05:15 Dose: 81 mg Atenolol (Tenormin (Beta Elvia)) 50 mg PO DAILY [facility] Last Admin: 11/21/18 05:17 Dose: 50 mg Atorvastatin Calcium (Lipitor) 80 mg PO QHS [facility] Last Admin: 11/20/18 22:20 Dose: 80 mg Azathioprine (Imuran) 100 mg PO DAILY@0800 [facility] Last Admin: 11/21/18 05:25 Dose: 100 mg Budesonide (Budesonide Ec) 3 mg PO DAILY [facility] Last Admin: 11/20/18 10:06 Dose: 3 mg Calamine/Phenol (Calmoseptine Ointment) 1 applic TOPICAL TID [facility]; Protocol Last Admin: 11/21/18 05:14 Dose: Not Given Clopidogrel Bisulfate (Plavix) 75 mg PO DAILY [facility] Last Admin: 11/21/18 05:16 Dose: 75 mg Dextrose (D50w Syringe) 0 gm IV X1 PRN; Protocol PRN Reason: Hypoglycemia Last Admin: 11/21/18 05:10 Dose: 12.5 gm Diphenhydramine HCl (Benadryl) 50 mg PO X1 ONE Stop: 11/22/18 05:01 Doxycycline Monohydrate (Doxycycline) 100 mg PO BID [facility] Last Admin: 11/20/18 22:21 Dose: 100 mg Furosemide (Lasix) 40 mg PO BID@1000,1800 [facility] Last Admin: 11/20/18 18:26 Dose: 40 mg Glucagon () 1 mg IM .X1 PRN PRN Reason: Hypoglycemia Heparin Sodium (Beef Lung) (Heparin 500 Unit/5 Ml (100/Ml)) 500 unit IV UD PRN PRN Reason: HEPARIN FLUSH Hydralazine HCl (Apresoline) 25 mg PO BID [facility] Last Admin: 11/21/18 05:15 Dose: 25 mg Sodium Chloride () 250 mls @ 15 mls/hr IV .[id number] PRN PRN Reason: SALINE FLUSH Last Admin: 11/15/18 10:12 Dose: 15 mls/hr Sodium Chloride () 1,000 mls @ 0 mls/hr IV .Q0M CIERRA Sodium Chloride () 1,000 mls @ 0 mls/hr IV .Q0M [place] Insulin Glargine (Lantus ([facility])) 45 units SC BREAKFAST [facility] Last Admin: 11/20/18 10:05 Dose: 45 u Insulin Human Lispro (Humalog Kwikpen ([facility])) 0 unit SQ ACHS [facility]; Protocol Last Admin: 11/21/18 05:02 Dose: Not Given Isosorbide Mononitrate (Imdur) 60 mg PO DAILY [facility] Last Admin: 11/21/18 05:17 Dose: 60 mg Magnesium Hydroxide (Milk Of Magnesia) 30 ml PO DAILY PRN PRN PRN Reason: Constipation Metoprolol Tartrate (Lopressor (Beta Elvia)) 2.5 mg IV Q6H PRN PRN Reason: BLOOD PRESSURE ELEVATION Last Admin: 11/15/18 14:41 Dose: 2.5 mg Nitroglycerin (Nitrostat) 0.4 mg SUBLINGUAL Q5M PRN PRN Reason: CARDIAC/CHEST PAIN Last Admin: 11/19/18 21:57 Dose: 0.4 mg Nystatin (Mycostatin Powder) 1 applic TOPICAL BID [facility]; Protocol Last Admin: 11/20/18 22:23 Dose: 1 applic Ondansetron HCl (Zofran) 4 mg IV Q6H PRN PRN PRN Reason: NAUSEA Last Admin: 11/20/18 22:44 Dose: 4 mg Pantoprazole Sodium (Protonix) 20 mg PO DAILY [facility] Ranolazine (Ranexa) 500 mg PO BID [facility] Last Admin: 11/21/18 05:17 Dose: 500 mg Sodium Chloride () 5 - 15 ml IV UD PRN PRN Reason: SALINE FLUSH Last Admin: 11/21/18 05:13 Dose: 10 ml Sodium Chloride ([place] Nasal [place]) 2 spray NASAL TID PRN PRN PRN Reason: NASAL DRYNESS Last Admin: 11/17/18 07:57 Dose: 2 spray Medical Necessity - Tobacco Use Smoking Status: Never smoker Assessment/Plan All Active Problems (Last Reviewed 11/20/18 @ 09:21 by Greyson Bruno MD) GI bleed (Acute) Acute coronary syndrome (Acute) Non-STEMI (non-ST elevated myocardial infarction) (Acute) Hypercholesterolemia (Acute) Congestive heart failure of unknown etiology (Acute) Abnormal EKG (Acute) 1. 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 2D echo as under 2. discussed with cardiology- for cardiac cath with possible stent placement in LAD tomorrow morning 2. Rectal bleeding ? due to hemorrhoids rectal bleeding didnt recur overnight. stool occult blood done was positive on aspirin and plavix has never had a colonoscopy before per general surgery, to defer colonoscopy until she has completed treatment for the nonSTEMI 3. Acute diastolic heart failure BNP was >2000. CXR as under 1 2D echo done showed moderate concentric LVH with EF of 50%, stage I diastolic dysfunction and mild hypokinesis of mid anteroseptal and lateral basal pillai. RVSP was 48 mmHg. on Imdur and hydralazine fluid restriction to 1500cc every 24 hours. on PO lasix 40mg daily; was reduced to 40mg daily o;/a of worsening kidney function 4. Acute hypoxic respiratory failure due to acute diastolic heart failure and NSTEMI resolved now on room air. continue duonebs breathing treatments 4. Severe sepsis possibly due to cellulitis SIRS criteria is now 0/4 on PO doxycycline. 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 PTH ordered. Will await nephro rec's 5. Epistaxis has had epistaxis from both nostrils since admission right nostril cauterised by ENT if epistaxis recurs, to call ENT for cautery 6. JOSE on CKD 4: baseline Cr is 2. Cr today is 2.59 today nephrology ocnsulted; think it is ATN from IV contrast exposure after she had cardiac cath on 11/16/18. nephrology counselled patient and family about need for dialysis as needed,a nd they are on board with that. awaiting nephrology rec's lasix increasd to 40mg bid per nephro o/a of poor urine output. 7. Acute blood loss anemia s/p transfusion of one unit of PRBC Hb today is 10 today; rectal bleedng has resolved. iron panel(05/21): showed normal iron levels and normal ferritin. will monitor 8. Hypertension: on atenolol 50mg daily hydralazine and imdur. Fairly controlled for age. 9. Diabetes mellitus: A1C 5.4. On insulin glargine 45 units subcu. Insulin sliding scale. Accu-Cheks AC at bedtime. 10. Non-anion gap metabolic acidosis: bicarb is 18. likely due to CKD. WIll monitor DVT prophylaxis: SCDs o/a of epistaxis. Code Visit Inpatient E&M: 98827 Subs Hosp L3
[2018-11-21 09:54] LABS: Vitamin B12 330 pg/mL (211-911)
--- NOTE | 2018-11-21 09:55 | PN_ITS ---
Patient Problems: Active and Suspected Problems (Last Reviewed 11/20/18 @ 09:21 by Greyson Bruno MD) GI bleed (Acute) Acute coronary syndrome (Acute) Non-STEMI (non-ST elevated myocardial infarction) (Acute) Hypercholesterolemia (Acute) Congestive heart failure of unknown etiology (Acute) Abnormal EKG (Acute) Subjective: Patient seen and examined. She feels better today. She did not have any rectal bleeding overnight and epistasis also did not recur. She received 1 unit of packed red blood cell yesterday and chest pain did not recur overnight. Review of systems otherwise negative. Labs and vitals reviewed. Discussed with Dr. Motta. To go for cardiac cath tomorrow for possible intervention in the LAD. Vitals/I&O's: Vital Signs Temp Pulse Resp BP Pulse Ox 98.2 F 76 16 136/61 H 97 11/21/18 04:00 11/21/18 06:58 11/21/18 04:00 11/21/18 05:15 11/21/18 07:25 Oxygen Flow Rate (L/min) 98 Oxygen Delivery Method Room Air Weight: 174 lb 13.225 oz Body Mass Index (BMI) 31.1 Finger Stick Blood Glucose 159 Intake and Output for Last 24 Hours 11/19/18 11/20/18 11/21/18 23:59 23:59 23:59 Intake Total 1680 / 1680 1505 / 1505 50 / 50 Output Total 750 / 750 Balance 930 / 930 1505 / 1505 50 / 50 General: Alert, Oriented x3, Cooperative, No apparent distress HEENT: Atraumatic, PERRLA, EOMI, Normocephalic Oral: Moist Mucosa, Neck: Supple, No JVD, Negative Carotid Bruits Lungs: - - clear to auscultation. On room air Cardiovascular: Regular rate, Regular Rhythm, Normal S1, Normal S2, No murmurs Abdomen: Bowel Sounds Present, Soft, Non Tender, Non-Distended, No Hepato- splenomegaly Extremities: No clubbing, No cyanosis, No edema, Capillary Refill Less than 3 Seconds Skin: - - superficial ulceration of right lateral LE; no redness, tenderness or discharge. Musculoskeletal: No Tenderness to Palpation of Joints or Extremities Lymphatic: No Cervical, Supraclavicular, or Inguinal Adenopathy Neurological: Cranial nerves II-XII grossly intact, Neuro grossly intact, Motor Exam 5/5 strength throughout Psych/Mental Status: Normal Affect, Appropriate, Alert and oriented to time, place, person, mood and affect Microbiology Past 72 Hours 11/15/18 06:40 Blood Culture (Wb) - Right Hand Blood Culture - Final No growth in 5 days. 11/15/18 06:45 Blood Culture (Wb) - Anticubital Right Blood Culture - Final No growth in 5 days. 11/19/18 22:30 Stool Stool Occult Blood (WILL) - Final Occult Blood Positive Laboratory Results 11/20/18 11:34: POC Glucose 129 H 11/20/18 12:24: Blood Type O POSITIVE, Antibody Screen NEGATIVE, Crossmatch See Detail 11/20/18 16:26: POC Glucose 74 11/20/18 22:18: POC Glucose 145 H 11/21/18 02:56: Urine Color Yellow, Urine Clarity Clear, Urine pH 5.0, Ur Specific [place] 1.010, Urine Protein 30 H, Urine Glucose (UA) Normal, Urine Ketones Negative, Urine Occult Blood Negative, Urine Nitrite Negative, Urine Bilirubin Negative, Urine Urobilinogen Normal, Ur Leukocyte Esterase 25 H, Urine RBC 0 SEEN, Urine WBC 0-5 SEEN, Ur Squamous Epith Cells 0-5 SEEN, Urine Bacteria RARE, Urine Mucus RARE 11/21/18 05:00: POC Glucose 63 L 11/21/18 05:02: Sodium 141, Potassium 3.8, Chloride 111 H, Carbon Dioxide 18.0 L , BUN 89 H, Creatinine 2.59 H, Estim Creat Clear Calc 14.62, Est GFR (MDRD) Af Amer 23 L, Est GFR (MDRD) Non-Af 19 L, BUN/Creatinine Ratio 34.4 H, Glucose 63 L , Calcium 7.7 L, Phosphorus 5.6 H, Albumin 2.3 L 11/21/18 05:02: PTH Intact 186.9 H 11/21/18 05:02: WBC 8.3, RBC 2.83 L, Hgb 10.0 L, Hct 30.9 L, MCV 109.2 H, MCH 35.3 H, MCHC 32.4, RDW 16.8 H, RDW Differential 64.0 H, Plt Count 202, MPV 10.6 11/21/18 05:02: APTT 36.8 H 11/21/18 08:06: POC Glucose 79 Current Medications Acetaminophen (Tylenol) 650 mg PO Q6H PRN PRN PRN Reason: PAIN Last Admin: 11/21/18 05:49 Dose: 650 mg Acetylcysteine (Mucomyst) 600 mg PO BID [facility] Last Admin: 11/21/18 05:19 Dose: 600 mg Aspirin (Aspirin, Baby) 81 mg PO DAILY@0800 [facility] Last Admin: 11/21/18 05:15 Dose: 81 mg Atenolol (Tenormin (Beta Elvia)) 50 mg PO DAILY [facility] Last Admin: 11/21/18 05:17 Dose: 50 mg Atorvastatin Calcium (Lipitor) 80 mg PO QHS [facility] Last Admin: 11/20/18 22:20 Dose: 80 mg Azathioprine (Imuran) 100 mg PO DAILY@0800 [facility] Last Admin: 11/21/18 05:25 Dose: 100 mg Budesonide (Budesonide Ec) 3 mg PO DAILY [facility] Last Admin: 11/20/18 10:06 Dose: 3 mg Calamine/Phenol (Calmoseptine Ointment) 1 applic TOPICAL TID [facility]; Protocol Last Admin: 11/21/18 05:14 Dose: Not Given Clopidogrel Bisulfate (Plavix) 75 mg PO DAILY [facility] Last Admin: 11/21/18 05:16 Dose: 75 mg Dextrose (D50w Syringe) 0 gm IV X1 PRN; Protocol PRN Reason: Hypoglycemia Last Admin: 11/21/18 05:10 Dose: 12.5 gm Diphenhydramine HCl (Benadryl) 50 mg PO X1 ONE Stop: 11/22/18 05:01 Doxycycline Monohydrate (Doxycycline) 100 mg PO BID [facility] Last Admin: 11/20/18 22:21 Dose: 100 mg Furosemide (Lasix) 40 mg PO BID@1000,1800 [facility] Last Admin: 11/20/18 18:26 Dose: 40 mg Glucagon () 1 mg IM .X1 PRN PRN Reason: Hypoglycemia Heparin Sodium (Beef Lung) (Heparin 500 Unit/5 Ml (100/Ml)) 500 unit IV UD PRN PRN Reason: HEPARIN FLUSH Hydralazine HCl (Apresoline) 25 mg PO BID [facility] Last Admin: 11/21/18 05:15 Dose: 25 mg Sodium Chloride () 250 mls @ 15 mls/hr IV .[id number] PRN PRN Reason: SALINE FLUSH Last Admin: 11/15/18 10:12 Dose: 15 mls/hr Sodium Chloride () 1,000 mls @ 0 mls/hr IV .Q0M CIERRA Sodium Chloride () 1,000 mls @ 0 mls/hr IV .Q0M [place] Insulin Glargine (Lantus ([facility])) 45 units SC BREAKFAST [facility] Last Admin: 11/20/18 10:05 Dose: 45 u Insulin Human Lispro (Humalog Kwikpen ([facility])) 0 unit SQ ACHS [facility]; Protocol Last Admin: 11/21/18 05:02 Dose: Not Given Isosorbide Mononitrate (Imdur) 60 mg PO DAILY [facility] Last Admin: 11/21/18 05:17 Dose: 60 mg Magnesium Hydroxide (Milk Of Magnesia) 30 ml PO DAILY PRN PRN PRN Reason: Constipation Metoprolol Tartrate (Lopressor (Beta Elvia)) 2.5 mg IV Q6H PRN PRN Reason: BLOOD PRESSURE ELEVATION Last Admin: 11/15/18 14:41 Dose: 2.5 mg Nitroglycerin (Nitrostat) 0.4 mg SUBLINGUAL Q5M PRN PRN Reason: CARDIAC/CHEST PAIN Last Admin: 11/19/18 21:57 Dose: 0.4 mg Nystatin (Mycostatin Powder) 1 applic TOPICAL BID [facility]; Protocol Last Admin: 11/20/18 22:23 Dose: 1 applic Ondansetron HCl (Zofran) 4 mg IV Q6H PRN PRN PRN Reason: NAUSEA Last Admin: 11/20/18 22:44 Dose: 4 mg Pantoprazole Sodium (Protonix) 20 mg PO DAILY [facility] Ranolazine (Ranexa) 500 mg PO BID [facility] Last Admin: 11/21/18 05:17 Dose: 500 mg Sodium Chloride () 5 - 15 ml IV UD PRN PRN Reason: SALINE FLUSH Last Admin: 11/21/18 05:13 Dose: 10 ml Sodium Chloride ([place] Nasal [place]) 2 spray NASAL TID PRN PRN PRN Reason: NASAL DRYNESS Last Admin: 11/17/18 07:57 Dose: 2 spray Medical Necessity - Tobacco Use Smoking Status: Never smoker Assessment/Plan All Active Problems (Last Reviewed 11/20/18 @ 09:21 by Greyson Bruno MD) GI bleed (Acute) Acute coronary syndrome (Acute) Non-STEMI (non-ST elevated myocardial infarction) (Acute) Hypercholesterolemia (Acute) Congestive heart failure of unknown etiology (Acute) Abnormal EKG (Acute) 1. 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 * 2D echo as under 2. * discussed with cardiology- for cardiac cath with possible stent placement in LAD tomorrow morning * * 2. Rectal bleeding ? due to hemorrhoids * rectal bleeding didnt recur overnight. * stool occult blood done was positive * on aspirin and plavix * has never had a colonoscopy before * per general surgery, to defer colonoscopy until she has completed treatment for the nonSTEMI * * 3. Acute diastolic heart failure * BNP was >2000. CXR as under 1 * 2D echo done showed moderate concentric LVH with EF of 50%, stage I diastolic dysfunction and mild hypokinesis of mid anteroseptal and lateral basal pillia. RVSP was 48 mmHg. * on Imdur and hydralazine * fluid restriction to 1500cc every 24 hours. * on PO lasix 40mg daily; was reduced to 40mg daily o;/a of worsening kidney function * * 4. Acute hypoxic respiratory failure due to acute diastolic heart failure and NSTEMI * resolved * now on room air. * continue duonebs breathing treatments * 4. Severe sepsis possibly due to cellulitis * SIRS criteria is now 0/4 * on PO doxycycline. 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 PTH ordered. Will await nephro rec's * 5. Epistaxis * has had epistaxis from both nostrils since admission * right nostril cauterised by ENT * if epistaxis recurs, to call ENT for cautery * 6. 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 Cr today is 2.59 today * nephrology ocnsulted; think it is ATN from IV contrast exposure after she had cardiac cath on 11/16/18. * nephrology counselled patient and family about need for dialysis as needed,a nd they are on board with that. * awaiting nephrology rec's * lasix increasd to 40mg bid per nephro o/a of poor urine output. * 7. Acute blood loss anemia s/p transfusion of one unit of PRBC * Hb today is 10 today; * rectal bleedng has resolved. * iron panel(05/21): showed normal iron levels and normal ferritin. * will monitor * 8. Hypertension: on atenolol 50mg daily hydralazine and imdur. Fairly controlled for age. 9. Diabetes mellitus: A1C 5.4. On insulin glargine 45 units subcu. Insulin sliding scale. Accu-Cheks AC at bedtime. 10. Non-anion gap metabolic acidosis: bicarb is 18. likely due to CKD. WIll monitor DVT prophylaxis: SCDs o/a of epistaxis. Code Visit Inpatient E&M: 97459 Subs Hosp L3
[2018-11-21] MEDS: Doxycycline 100 MG CAPSULE PO ×2 (10:08→21:28)
[2018-11-21] MEDS: Nystatin Powder 15gm Bottle 1 APPLIC TOPICAL ×2 (10:08→21:28)
[2018-11-21] MEDS: Budesonide 3 MG CAPSULE.EC PO (10:08)
[2018-11-21] MEDS: Furosemide 40 MG Tablet PO ×2 (10:08→17:29)
[2018-11-21] MEDS: Pantoprazole Sodium 20 MG Tablet PO (10:12)
[2018-11-21] MEDS: Insulin Lispro 100 UNIT/ML INSULN.PEN SQ (11:24)
[2018-11-21 11:35] LABS: Bedside Glucose 151 mg/dL (70-110)
--- NOTE | 2018-11-21 11:44 | PCM.PN.SRG ---
Patient Problems: Active and Suspected Problems (Last Reviewed 11/20/18 @ 09:21 by Greyson Bruno MD) GI bleed (Acute) Acute coronary syndrome (Acute) Non-STEMI (non-ST elevated myocardial infarction) (Acute) Hypercholesterolemia (Acute) Congestive heart failure of unknown etiology (Acute) Abnormal EKG (Acute) Subjective: Patient states that she is no longer having any rectal bleeding. She is not experiencing any abdominal pain. She still has some significant discomfort from her cellulitis. Dr. Motta is going to be doing a cardiac cath on her tomorrow Objective: Her abdomen is soft and nontender - Physical Exam Vital Signs Temp Pulse Resp BP Pulse Ox 98.5 F 77 18 116/50 L 96 11/21/18 10:00 11/21/18 11:07 11/21/18 10:00 11/21/18 10:00 11/21/18 10:00 Oxygen Flow Rate (L/min) 98 Oxygen Delivery Method Room Air Weight: 174 lb 13.225 oz Body Mass Index (BMI) 31.1 Finger Stick Blood Glucose 159 Intake and Output for Last 24 Hours 11/19/18 11/20/18 11/21/18 23:59 23:59 23:59 Intake Total 1680 / 1680 1505 / 1505 550 / 550 Output Total 750 / 750 Balance 930 / 930 1505 / 1505 550 / 550 Microbiology Past 72 Hours 11/15/18 06:40 Blood Culture - Final Blood Culture (Wb) - Right Hand No growth in 5 days. 11/15/18 06:45 Blood Culture - Final Blood Culture (Wb) - Anticubital Right No growth in 5 days. 11/19/18 22:30 Stool Occult Blood (WILL) - Final Stool Occult Blood Positive Laboratory Tests Past 24 Hrs 11/19/18 11/20/18 11/21/18 05:12 12:24 02:56 WBC RBC Hgb Hct MCV MCH MCHC RDW RDW Differential Plt Count MPV APTT Sodium Potassium Chloride Carbon Dioxide BUN Creatinine Estim Creat Clear Calc Est GFR (MDRD) Af Amer Est GFR (MDRD) Non-Af BUN/Creatinine Ratio Glucose Calcium Phosphorus Albumin Vitamin B12 330 PTH Intact Urine Color Yellow Urine Clarity Clear Urine pH 5.0 Ur Specific [place] 1.010 Urine Protein 30 H Urine Glucose (UA) Normal Urine Ketones Negative Urine Occult Blood Negative Urine Nitrite Negative Urine Bilirubin Negative Urine Urobilinogen Normal Ur Leukocyte Esterase 25 H Urine RBC 0 SEEN Urine WBC 0-5 SEEN Ur Squamous Epith Cells 0-5 SEEN Urine Bacteria RARE Urine Mucus RARE Blood Type O POSITIVE Antibody Screen NEGATIVE Crossmatch See Detail 11/21/18 11/21/18 11/21/18 05:02 05:02 05:02 WBC 8.3 RBC 2.83 L Hgb 10.0 L Hct 30.9 L MCV 109.2 H MCH 35.3 H MCHC 32.4 RDW 16.8 H RDW Differential 64.0 H Plt Count 202 MPV 10.6 APTT Sodium 141 Potassium 3.8 Chloride 111 H Carbon Dioxide 18.0 L BUN 89 H Creatinine 2.59 H Estim Creat Clear Calc 14.62 Est GFR (MDRD) Af Amer 23 L Est GFR (MDRD) Non-Af 19 L BUN/Creatinine Ratio 34.4 H Glucose 63 L Calcium 7.7 L Phosphorus 5.6 H Albumin 2.3 L Vitamin B12 PTH Intact 186.9 H Urine Color Urine Clarity Urine pH Ur Specific [place] Urine Protein Urine Glucose (UA) Urine Ketones Urine Occult Blood Urine Nitrite Urine Bilirubin Urine Urobilinogen Ur Leukocyte Esterase Urine RBC Urine WBC Ur Squamous Epith Cells Urine Bacteria Urine Mucus Blood Type Antibody Screen Crossmatch 11/21/18 05:02 WBC RBC Hgb Hct MCV MCH MCHC RDW RDW Differential Plt Count MPV APTT 36.8 H Sodium Potassium Chloride Carbon Dioxide BUN Creatinine Estim Creat Clear Calc Est GFR (MDRD) Af Amer Est GFR (MDRD) Non-Af BUN/Creatinine Ratio Glucose Calcium Phosphorus Albumin Vitamin B12 PTH Intact Urine Color Urine Clarity Urine pH Ur Specific [place] Urine Protein Urine Glucose (UA) Urine Ketones Urine Occult Blood Urine Nitrite Urine Bilirubin Urine Urobilinogen Ur Leukocyte Esterase Urine RBC Urine WBC Ur Squamous Epith Cells Urine Bacteria Urine Mucus Blood Type Antibody Screen Crossmatch POC Glucose 11/21/18 11/21/18 11/21/18 11:22 08:06 05:00 POC Glucose 151 H 79 63 L 11/20/18 11/20/18 22:18 16:26 POC Glucose 145 H 74 Medical Necessity - Tobacco Use Smoking Status: Never smoker Assessment/Plan All Active Problems (Last Reviewed 11/20/18 @ 09:21 by Greyson Bruno MD) GI bleed (Acute) Acute coronary syndrome (Acute) Non-STEMI (non-ST elevated myocardial infarction) (Acute) Hypercholesterolemia (Acute) Congestive heart failure of unknown etiology (Acute) Abnormal EKG (Acute) Believe it is safe for us to wait on doing her colonoscopy until her heart work is completely worked up and her cellulitis has significantly improved. I will see her in an outpatient basis and get her scheduled at that time.
--- NOTE | 2018-11-21 13:02 | PCM.PN.REN ---
Patient Problems: Active and Suspected Problems (Last Reviewed 11/20/18 @ 09:21 by Greyson Bruno MD) GI bleed (Acute) Acute coronary syndrome (Acute) Non-STEMI (non-ST elevated myocardial infarction) (Acute) Hypercholesterolemia (Acute) Congestive heart failure of unknown etiology (Acute) Abnormal EKG (Acute) Subjective: no chest pain overnight. No nausea or epistaxis. Hgb stable after prbc. Creatinine slightly improved. Remains edematous with rales. Dyspnea with exertion. - Physical Exam General: Alert, Oriented x3, - - weak, debilitated Lungs: Rales Cardiovascular: Regular rate Abdomen: Bowel Sounds Present, Soft, Non Tender, Non-Distended Extremities: Edema - BLE Skin: Ulcer/ Wound - rt lateral leg Musculoskeletal: No Muscle Wasting Neurological: - - no tremor Psych/Mental Status: Normal Affect, Appropriate, Alert and oriented to time, place, person, mood and affect Vital Signs Temp Pulse Resp BP Pulse Ox 98.5 F 77 18 116/50 L 96 11/21/18 10:00 11/21/18 11:07 11/21/18 10:00 11/21/18 10:00 11/21/18 10:00 Oxygen Flow Rate (L/min) 98 Oxygen Delivery Method Room Air Weight: 79.3 kg Body Mass Index (BMI) 31.1 Finger Stick Blood Glucose 159 Intake and Output for Last 24 Hours 11/19/18 11/20/18 11/21/18 23:59 23:59 23:59 Intake Total 1680 / 1680 1505 / 1505 550 / 550 Output Total 750 / 750 Balance 930 / 930 1505 / 1505 550 / 550 Microbiology Past 72 Hours 11/15/18 06:40 Blood Culture - Final Blood Culture (Wb) - Right Hand No growth in 5 days. 11/15/18 06:45 Blood Culture - Final Blood Culture (Wb) - Anticubital Right No growth in 5 days. 11/19/18 22:30 Stool Occult Blood (WILL) - Final Stool Occult Blood Positive Laboratory Tests Past 24 Hrs 11/19/18 11/20/18 11/21/18 05:12 12:24 02:56 WBC RBC Hgb Hct MCV MCH MCHC RDW RDW Differential Plt Count MPV APTT Sodium Potassium Chloride Carbon Dioxide BUN Creatinine Estim Creat Clear Calc Est GFR (MDRD) Af Amer Est GFR (MDRD) Non-Af BUN/Creatinine Ratio Glucose Calcium Phosphorus Albumin Vitamin B12 330 PTH Intact Urine Color Yellow Urine Clarity Clear Urine pH 5.0 Ur Specific [place] 1.010 Urine Protein 30 H Urine Glucose (UA) Normal Urine Ketones Negative Urine Occult Blood Negative Urine Nitrite Negative Urine Bilirubin Negative Urine Urobilinogen Normal Ur Leukocyte Esterase 25 H Urine RBC 0 SEEN Urine WBC 0-5 SEEN Ur Squamous Epith Cells 0-5 SEEN Urine Bacteria RARE Urine Mucus RARE Blood Type O POSITIVE Antibody Screen NEGATIVE Crossmatch See Detail 11/21/18 11/21/18 11/21/18 05:02 05:02 05:02 WBC 8.3 RBC 2.83 L Hgb 10.0 L Hct 30.9 L MCV 109.2 H MCH 35.3 H MCHC 32.4 RDW 16.8 H RDW Differential 64.0 H Plt Count 202 MPV 10.6 APTT Sodium 141 Potassium 3.8 Chloride 111 H Carbon Dioxide 18.0 L BUN 89 H Creatinine 2.59 H Estim Creat Clear Calc 14.62 Est GFR (MDRD) Af Amer 23 L Est GFR (MDRD) Non-Af 19 L BUN/Creatinine Ratio 34.4 H Glucose 63 L Calcium 7.7 L Phosphorus 5.6 H Albumin 2.3 L Vitamin B12 PTH Intact 186.9 H Urine Color Urine Clarity Urine pH Ur Specific [place] Urine Protein Urine Glucose (UA) Urine Ketones Urine Occult Blood Urine Nitrite Urine Bilirubin Urine Urobilinogen Ur Leukocyte Esterase Urine RBC Urine WBC Ur Squamous Epith Cells Urine Bacteria Urine Mucus Blood Type Antibody Screen Crossmatch 11/21/18 05:02 WBC RBC Hgb Hct MCV MCH MCHC RDW RDW Differential Plt Count MPV APTT 36.8 H Sodium Potassium Chloride Carbon Dioxide BUN Creatinine Estim Creat Clear Calc Est GFR (MDRD) Af Amer Est GFR (MDRD) Non-Af BUN/Creatinine Ratio Glucose Calcium Phosphorus Albumin Vitamin B12 PTH Intact Urine Color Urine Clarity Urine pH Ur Specific [place] Urine Protein Urine Glucose (UA) Urine Ketones Urine Occult Blood Urine Nitrite Urine Bilirubin Urine Urobilinogen Ur Leukocyte Esterase Urine RBC Urine WBC Ur Squamous Epith Cells Urine Bacteria Urine Mucus Blood Type Antibody Screen Crossmatch POC Glucose 11/21/18 11/21/18 11/21/18 11:22 08:06 05:00 POC Glucose 151 H 79 63 L 11/20/18 11/20/18 22:18 16:26 POC Glucose 145 H 74 Medical Necessity - Tobacco Use Smoking Status: Never smoker Assessment/Plan All Active Problems (Last Reviewed 11/20/18 @ 09:21 by Greyson Bruno MD) GI bleed (Acute) Acute coronary syndrome (Acute) Non-STEMI (non-ST elevated myocardial infarction) (Acute) Hypercholesterolemia (Acute) Congestive heart failure of unknown etiology (Acute) Abnormal EKG (Acute) 1. Acute on chronic kidney disease stage IV likely due to ATN from IV contrast exposure status post heart catheterization on 11/16/18. Baseline creatinine 2.0 progressed to 2.69 improved to 2.59 today. Remains nonoliguric on po Lasix. 2. Acute coronary syndrome, NSTEMI with positive troponins, ECG changes. Underwent heart catheterization on 11/16. PCI per cardiology in am. DW with cardiology 3. Acute ischemic CHF, symptoms improved with IV Lasix. Continue with oral Lasix therapy twice a day for now. Continues to have leg edema and rales. Give additional dose of lasix iv x1 4. Acute GI bleed hemoglobin 10g after prbc 5. Acute diarrhea resolved 6. Anemia check iron studies. 7. 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 PTH 186 Hold calcitriol. Currently on oral doxycycline with improvement in cellulitis.
[2018-11-21] MEDS: Furosemide 20 MG/2 ML VIAL IV (13:29)
[2018-11-21] MEDS: Menthol/Lanolin/Calamine/Znox 113 GM Tube 1 APPLIC TOPICAL ×2 (13:30→21:27)
[2018-11-21 17:01] LABS: Bedside Glucose 106 mg/dL (70-110)
[2018-11-21 20:07] LABS: Folate, Hemolysate Test 330.7 ng/mL (Not Estab.); Folate, RBC (Hct) Test 26.9 % (34.0-46.6)
[2018-11-21] MEDS: Sodium Bicarbonate 650 MG Tablet PO (21:32)
[2018-11-21 22:51] LABS: Bedside Glucose 99 mg/dL (70-110)
[2018-11-22] VITALS (34 sets, daily range): BP systolic 122–152; BP diastolic 54–67; PULSE 75–86; RESP 12–21; TEMP 36.7–37.1; O2SAT 96–100; BMI 31.2
[2018-11-22] MEDS: Acetaminophen 325 MG Tablet 650 MG PO ×3 (05:24→22:06)
[2018-11-22] MEDS: 0.9% NaCl Peripheral Flush Adult/Peds IV ×2 (05:32→07:12)
[2018-11-22] MEDS: Dextrose 50%-Water 25 GM/50 ML DISP.SYRIN IV ×2 (05:32→07:09)
[2018-11-22 05:41] LABS: Bedside Glucose 52 mg/dL (70-110)
[2018-11-22 05:44] LABS: Absolute Lymphocyte Count 2.18 X10^3/ul (0.83-4.51); Absolute Neutrophil Count 4.9 X10^3/uL (2.0-7.7); Basophil# 0.04 X10^3/uL; Basophil% 0.5 % (0-1); Eosinophil# 0.15 X10^3/uL; Eosinophils% 1.9 % (0-5); Hematocrit 31.4 % (37-47); Hemoglobin 10.2 g/dl (12.0-15.0); Lymphocyte # 2.18 X10^3/ul (4.0); Lymphocyte % 28.1 % (19-41); Mean Corp Hgb Conc 32.5 g/gl (32-36); Mean Corpuscular Hgb 34.9 pg (27.0-32.0); Mean Corpuscular Volume 107.5 fL (81-99); Mean Platelet Vol. 10.5 fl (6.2-12.0); Monocyte# 0.47 X10^3/uL; Monocyte% 6.1 % (0-10); Neutrophil # 4.87 X10^3/uL (2.7-7.7); Neutrophil % 62.9 % (47-70); Platelet Count 212 K/mm3 (150-450); RBC Distribution Width CV 16.9 % (11.6-14.6); RBC Distribution Width SD 64.5 fl (35.1-43.9); Red Blood Count 2.92 M/mm3 (4.2-5.4); White Blood Count 7.8 K/mm3 (4.4-11.0)
[2018-11-22 05:48] LABS: POSITIVE COUNT NO; POSITIVE DIFFERENTIAL NO; POSITIVE MORPHOLOGY NO
[2018-11-22 05:53] LABS: International Normalized Ratio 1.3; Prothrombin Time (Protime)PT. 15.8 SECONDS (11.7-14.9)
[2018-11-22 05:54] LABS: Partial Thromboplast Time 38.3 Seconds (24.1-36.2)
[2018-11-22 05:55] LABS: Albumin, Serum 2.4 g/dL (3.2-5.0); BUN 91 mg/dL (7-18); BUN/Creat Ratio 32.7 RATIO (10-20); Calcium,Total 7.7 mg/dL (8.5-10.1); Chloride 111 mmol/L (98-107); Creatinine, Serum 2.78 mg/dL (0.55-1.02); EST Glomerular Filtration Rate 18 mL/min (>60); Est Glom Filt Rate - Afr Amer 21 mL/min (>60); Estimated Creatinine Clearance 13.62 ml/min; Ferritin 119 ng/mL (8-252); Glucose 57 mg/dL (74-106); Iron 140 ug/dL (50-170); Phosphorus 5.8 mg/dL (2.5-4.9); Potassium 3.9 mmol/L (3.5-5.1); Sodium Level 142 mmol/L (136-145)
--- NOTE | 2018-11-22 05:55 | EKG12_ITS ---
Test Reason : AM EKG Blood Pressure : / mmHG Vent. Rate : 084 BPM Atrial Rate : 084 BPM P-R Int : 152 ms QRS Dur : 126 ms QT Int : 446 ms P-R-T Axes : 005 006 -45 degrees QTc Int : 527 ms Normal sinus rhythm Possible Left atrial enlargement Right bundle branch block T wave abnormality, consider lateral ischemia Abnormal ECG Confirmed by ИРИНА BRYSON, PADMA ([id number]), editor city OPHELIA SIERRA ([id number] on 11/23/2018 10:09:50 AM Referred By: DR GARCIA Confirmed By:PADMA GIFFORD MD
[2018-11-22] MEDS: Isosorbide Mononitrate 60 MG Tablet PO (06:49)
[2018-11-22] MEDS: Clopidogrel Bisulfate 75 MG Tablet PO (06:49)
[2018-11-22] MEDS: hydrALAZINE 25 MG Tablet PO ×2 (06:50→21:59)
[2018-11-22] MEDS: Atenolol 50 MG Tablet PO (06:53)
[2018-11-22] MEDS: Aspirin 81 MG TAB.CHEW PO (06:53)
[2018-11-22 07:16] LABS: Bedside Glucose 71 mg/dL (70-110)
[2018-11-22 08:21] LABS: ACT Activated Clotting Time 219 sec (74-137)
--- NOTE | 2018-11-22 08:31 | NURSING ---
Called report to Cyn BELTRAN in ICU
--- NOTE | 2018-11-22 08:44 | CL.I_ITS ---
Patient Name: JUN JOHNSON Study Date: 11/22/2018 Performing: Greyson Motta MD Ht: 62 inches 157 cm : 1940 Wt: 172.2 lbs 78 kg Age: 78 Gender: female BSA: 1.79 PROCEDURE(S) PERFORMED [id number] W OR WO PTCA, SINGLE CORONARY ARTERY [id number], EACH ADD'L CORONARY ART, SAME MAJOR CLINICAL PROFILE AND CO-MORBIDITIES Patient presents with NSTEMI for urgent cardiac cath Indications: ACS > 24 hrs, New Onset Angina <= 2 months, Stable Known CAD, LV Dysfunction Heart Failure: NYHA Class: 3, Newly Diagnosed: Yes, Heart Failure Type: Systolic Stress/Imaging Stress/Image Study Performed: No Angina Classification Anginal Classification w/in 2 Weeks: CCS IV CAD Presentations: Unstable angina. Non-STEMI. Symptom onset Date/Time: 11/15/2018 Time Not Availa ble Comorbidities/Risk Factors: Hypertension Dyslipidemia Diabetes Mellitus: Diabetes Therapy: Insulin CONCLUSIONS Successful PCI with PTCA to the proximal 1/2 of small, calcified DIAG#2 with a 1.5 x 8 balloon; 85%-- >30%, no dissection. Successful PTCA/ULISES mid LAD with a 2.25 x 12 Promus Synergy; 85%-->0%, no dissection. Successful PTCA/ULISES proximal LAD with a 3.0 x 12 Promus Synergy; 75%-->0%, no dissection. RECOMMENDATIONS Highly recommend quitting all tobacco products Follow up with primary shoe designer Risk factor modification ASA Indefinitley Plavix for at least 12 months Routine post interventional care Refer for Outpatient Cardiac Rehab Manual sheath removal per protocol Follow up with Dr. Motta Elective complex PCI to proximal PL branch in 4-6 weeks with long 55 cm sheath and AL-1 guide. I had a long a thorough discussion with pt and her family regarding CRI and possible need for tempora ry or permanent HD prior to pci. Pt had IV fluids, mucomyst and 5 days of renal recovery prior to P CI. Total IV contrast dye for this procedure was 60 ccs. Successful Mynx closure of RFA. DESCRIPTION OF PROCEDURE The patient arrived to the procedure lab. The risks and benefits of the procedure as well as a full d escription of our services here and current unavailability of surgical backup were fully explained to the patient and/or their significant other prior to the catheterization. The Timeout was completed, verifying the correct patient and procedure. The patient's procedural site was prepped and draped in the usual fashion. Local anesthetic was given subcutaneously to right groin region with Lidocaine 2%. Using a modified Seldinger technique, arterial access was obtained via the right femoral artery, a 6 Fr sheath was inserted.. EBU 3.5 Guide catheter was inserted and engaged into the LCA. [employer] [place] (1) Guide wire was ad vanced to the LAD. [employer] [place] (2) Guide wire was advanced to the 2nd Diagonal. Emerge 1.5 x 8 Ball oon catheter was inserted. Balloon catheter was advanced across lesion in the second diagonal, proxim al PTCA balloon inflated at 6 atms for 10 secs. PTCA balloon inflated at 6 atms for 10 secs. PTCA bal loon inflated at 8 atms for 13 secs. PTCA balloon inflated at 8 atms for 8 secs. PTCA balloon inflate d at 8 atms for 7 secs. Emerge 2.0 x 12 Balloon catheter was inserted. Balloon catheter was advanced across lesion in the LAD, mid. PTCA balloon inflated at 6 atms for 10 secs. Balloon catheter was repo sitioned to additional lesion in the LAD, proximal. PTCA balloon inflated at 6 atms for 11 secs. Syne rgy 2.25 x 12 Drug Eluting stent was inserted. Drug Eluting stent was advanced across the lesion in t he LAD, mid. Angiogram performed pre stent deployment. Emerge 1.5 x 8 Balloon catheter was reinserted Balloon catheter was advanced across lesion in the second diagonal, proximal PTCA balloon inflated at 9 atms for 13 secs. PTCA balloon inflated at 8 atms for 10 secs. PTCA balloon inflated at 9 atms for 18 secs. PTCA balloon inflated at 8 atms for 8 secs. PTCA balloon inflated at 11 atms for 15 secs. Synergy 3.0 x 12 Drug Eluting stent was inserted. Drug Eluting stent was advanced across th e lesion in the LAD, proximal. Angiogram performed pre stent deployment. Contrast was injected throug h the sheath and the Right Iliac and Femoral artery were assessed for possible closure device. The ar terial sheath was pulled and a Mynx closure device was deployed for hemostasis INTERVENTION INFORMATION LESION SITE: 2nd Diagonal (Proximal) Lesion Complexity: High/C, lesion at bifurcation: Yes, thrombus present: No, culprit lesion: No Pre Stenosis: 75 % Pre intervention OSCAR flow: 3 PROCEDURE: Balloon Angioplasty Post Stenosis: 30 % Post intervention OSCAR flow: 3 Lesion Devices: Medtronic 6 Fr EBU3.5 100cm Guide Catheter Brandon Sci EMERGE MR 2.00x12 BALLOON Leblanc .014 [employer] [place] Straight 190cm Leblanc .014 [employer] [place] Straight 190cm Brandon Sci EMERGE MR 1.50x08 BALLOON LESION SITE: LAD (Mid) Lesion Complexity: High/C, lesion at bifurcation: Yes, thrombus present: No, lesion length: 12 mm, cu lprit lesion: Yes Pre Stenosis: 85 % Pre intervention OSCAR flow: 3 PROCEDURE: Drug Eluting Stent with pre dilatation. Post Stenosis: 0 % Post intervention OSCAR flow: 3 Lesion Devices: Medtronic 6 Fr EBU3.5 100cm Guide Catheter Brandon Sci EMERGE MR 2.00x12 BALLOON Leblanc .014 [employer] [place] Straight 190cm Leblanc .014 [employer] [place] Straight 190cm Brandon Sci Synergy MR ULISES 2.25x12 LESION SITE: LAD (Proximal) Lesion Complexity: High/C, lesion at bifurcation: No, thrombus present: No, lesion length: 12 mm, cul prit lesion: No Pre Stenosis: 85 % Pre intervention OSCAR flow: 3 PROCEDURE: Drug Eluting Stent with pre dilatation. 0 % Post intervention OSCAR flow: 3 Lesion Devices: Medtronic 6 Fr EBU3.5 100cm Guide Catheter Brandon Sci EMERGE MR 2.00x12 BALLOON Leblanc .014 [employer] [place] Straight 190cm Leblanc .014 [employer] [place] Straight 190cm Brandon Sci Synergy MR ULISES 3.00x12 COMPLICATIONS No Complications PROCEDURE MEDICATIONS Oxygen: 2 L/min via nasal cannula Benadryl 50 mg IV @ 11/22/2018 07:32:15 Heparin 6000 unit(s) IV 11/22/2018 07:42:32 Nitro 200 mcg IC 11/22/2018 07:44:20 Nitro 200 mcg IC 11/22/2018 07:44:20 Nitro glycerin 25mg / 250ml D5W @ 5 mcg/min IV started 11/22/2018 08:14:25 IV Bolus: .9 NaCl 700ml total 11/22/2018 07:42:56 IV Fluids: .9 NaCl decreased to 150 ml/hr 11/22/2018 08:16:07 SUMMARY OF HEMODYNAMIC DATA Time AIR REST ECG 07:28:21 AO 162/62 (104) SA 07:43:26 Signed By Greyson Motta MD On 11/22/2018 12:56:41 Greyson Motta MD
--- NOTE | 2018-11-22 09:36 | EKG12_ITS ---
Test Reason : PCI Blood Pressure : / mmHG Vent. Rate : 079 BPM Atrial Rate : 079 BPM P-R Int : 148 ms QRS Dur : 126 ms QT Int : 468 ms P-R-T Axes : 008 020 -39 degrees QTc Int : 536 ms Normal sinus rhythm Right bundle branch block T wave abnormality, consider lateral ischemia Abnormal ECG No previous ECGs available Confirmed by ROCHELLE BRYSON, TONIA ([id number]), commercial production editor SALAZAR MOHAMUD ([id number] on 11/28/2018 5:32:38 PM Referred By: ANALY Confirmed By:TONIA BYRD MD
[2018-11-22] MEDS: Budesonide 3 MG CAPSULE.EC PO (10:27)
[2018-11-22] MEDS: azaTHIOprine 50 MG Tablet 100 MG PO (10:27)
[2018-11-22] MEDS: Pantoprazole Sodium 20 MG Tablet PO (10:27)
[2018-11-22] MEDS: Furosemide 40 MG Tablet PO (10:27)
[2018-11-22] MEDS: Doxycycline 100 MG CAPSULE PO ×2 (10:27→22:00)
[2018-11-22] MEDS: Ranolazine 500 MG Tablet PO ×2 (10:28→22:01)
[2018-11-22] MEDS: Sodium Bicarbonate 650 MG Tablet PO ×2 (10:28→22:01)
[2018-11-22] MEDS: 0.9% Normal Saline 1,000 ML 150 ML IV (10:28)
[2018-11-22] MEDS: Nystatin Powder 15gm Bottle 1 APPLIC TOPICAL ×2 (10:31→22:00)
[2018-11-22] MEDS: Menthol/Lanolin/Calamine/Znox 113 GM Tube 1 APPLIC TOPICAL ×2 (10:32→21:59)
[2018-11-22] MEDS: Acetylcysteine (Mucomyst Oral) 20% SOLN 600 MG PO (10:40)
[2018-11-22 10:57] LABS: Bedside Glucose 66 mg/dL (70-110)
[2018-11-22 10:57] LABS: Bedside Glucose 56 mg/dL (70-110)
[2018-11-22 11:21] LABS: Bedside Glucose 97 mg/dL (70-110)
--- NOTE | 2018-11-22 11:55 | CRPHASE1 ---
Patient Data/Charges E Learning Coordinator:: Greyson Motta PCP:: Taylor Alvarenga Date/Diagnosis #1:: PCI WITH STENT Refer Phase II:: Yes Phase II Referral:: [facility] Phase I Charge:: Level I - Education Risk Factors/Lifestyle Smoking Status: Never smoker Hx Hypertension: Yes Hx Diabetes Mellitus Type 1: No Hx Diabetes Mellitus Type 2: Yes Hx Dyslipidemia: Yes Height: 5 ft 2 in Weight:: 171 lb BMI: 31.2 Post-Menopausal: Yes ETOH: No Substance Abuse: No Family History: Family History (Last Reviewed 06/07/18 @ 14:09 by Heike Pedraza) Father Heart disease Laboratory Values: Cardiac Rehab Phase I Labs Hemoglobin A1c 5.4 % (4.2-6.3) 11/16/18 04:20 Triglycerides 159 mg/dL (-199) 11/15/18 06:12 Cholesterol 131 mg/dL (200) 11/15/18 06:12 LDL Cholesterol 58 mg/dL (0-130) 11/15/18 06:12 HDL Cholesterol 41 mg/dL (40-) 11/15/18 06:12 Phase I Education Given On:: [place], Nutrition, Antiplatelet medication, CHF, Smoking cessation, Diabetes - Type I, Diabetes - Type II Issues Affecting Care:: Physical - STAGE 4 RENAL,LIVER PROBLEMS Medical/Surgical History [place]:: Yes CAD:: Yes Diabetes:: Yes Diabetes Type II:: Yes Hypertension:: Yes Dyslipidemia:: Yes Arthritis:: Yes PTCA:: Yes ICD:: No Pacemaker:: No Discharge/Home/Social Eval Discharge Disposition: Home Marital Status: Patient Lives With::
--- NOTE | 2018-11-22 11:59 | CRPHASE1_ITS ---
Patient Data/Charges Promotions Manager:: Greyson Motta PCP:: Taylor Alvarenga Date/Diagnosis #1:: PCI WITH STENT Refer Phase II:: Yes Phase II Referral:: [facility] Phase I Charge:: Level I - Education Risk Factors/Lifestyle Smoking Status: Never smoker Hx Hypertension: Yes Hx Diabetes Mellitus Type 1: No Hx Diabetes Mellitus Type 2: Yes Hx Dyslipidemia: Yes Height: 5 ft 2 in Weight:: 171 lb BMI: 31.2 Post-Menopausal: Yes ETOH: No Substance Abuse: No Family History: Family History (Last Reviewed 06/07/18 @ 14:09 by Heike Pedraza) Father Heart disease Laboratory Values: Cardiac Rehab Phase I Labs Hemoglobin A1c 5.4 % (4.2-6.3) 11/16/18 04:20 Triglycerides 159 mg/dL (-199) 11/15/18 06:12 Cholesterol 131 mg/dL (200) 11/15/18 06:12 LDL Cholesterol 58 mg/dL (0-130) 11/15/18 06:12 HDL Cholesterol 41 mg/dL (40-) 11/15/18 06:12 Phase I Education Given On:: [place], Nutrition, Antiplatelet medication, CHF, Smoking cessation, Diabetes - Type I, Diabetes - Type II Issues Affecting Care:: Physical - STAGE 4 RENAL,LIVER PROBLEMS Medical/Surgical History [place]:: Yes CAD:: Yes Diabetes:: Yes Diabetes Type II:: Yes Hypertension:: Yes Dyslipidemia:: Yes Arthritis:: Yes PTCA:: Yes ICD:: No Pacemaker:: No Discharge/Home/Social Eval Discharge Disposition: Home Marital Status: Patient Lives With::
--- NOTE | 2018-11-22 11:59 | CRPH1.INSTRU ---
General Education CAD and cardiac anatomy and function:: Needs reinforcement, Not instructed Explanation of diagnoses and procedures:: Not instructed Sign/Symptoms of CO:: Not instructed Antiplatelet therapy: Needs reinforcement Proper use of NTG-SL: Not instructed Emergency procedures and activation of EMS: Not instructed Compliance of all prescribed medications: Not instructed Smoking Patient Nicotine/Smoking Risk Factors Are:: Never smoked Nicotine/Smoking Response Code:: Not instructed Dyslipidemia Patient Dyslipidemia Risk Factors Are:: Total Cholesterol - 131, Triglycerides - 159, HDL - 41, LDL - 58 Recommendations Include:: Lipid profile provided, Therapeutic Lifestyle Change dietary guidelines Dyslipidemia Response Code:: Not instructed Overweight/Obesity Patient Overweight/Obesity Risk Factors Are:: Obesity - > or = 30 Recommendations Include:: Weight loss of 5-10%, Reduced calorie diet, Exercise 5-7 times/week Overweight/Obesity:: Not instructed Hypertension Recommendations Include:: Maintain BP <130/85, BP <130/80 if diabetic, DASH dietary guidelines, Moderation of ETOH Hypertension:: Not instructed Heart Disease Heart Disease Response Code:: Not instructed Diabetes Recommendations Include:: Maintain fasting blood sugars 70-110 md/dL, Maintain HgbA1c of 6% or less, Monitor blood sugar as prescribed, Diabetic dietary guidelines, Decrease/maintain body weight Diabetes:: Not instructed Metabolic Syndrome Metabolic Syndrome Response Code:: Not instructed Sedentary Sedentary Response Code:: Not instructed Stress Stress Response Code:: Not instructed
--- NOTE | 2018-11-22 15:42 | PCM.PN.HOSP ---
Patient Problems: Active and Suspected Problems (Last Reviewed 11/20/18 @ 09:21 by Greyson Bruno MD) GI bleed (Acute) Acute coronary syndrome (Acute) Non-STEMI (non-ST elevated myocardial infarction) (Acute) Hypercholesterolemia (Acute) Congestive heart failure of unknown etiology (Acute) Abnormal EKG (Acute) Subjective: Patient was seen and examined. Seen in the ICU post cardiac cath. Complains of pain in the right lower extremity, site of cellulitis. Denies any dizziness or palpitations. Vitals/I&O's: Vital Signs Temp Pulse Resp BP Pulse Ox 98.8 F 81 19 H 131/57 H 100 11/22/18 12:00 11/22/18 15:32 11/22/18 14:00 11/22/18 14:00 11/22/18 14:00 Oxygen Flow Rate (L/min) 98 Oxygen Delivery Method Room Air Weight: 77.564 kg Body Mass Index (BMI) 31.1 Finger Stick Blood Glucose 159 Intake and Output for Last 24 Hours 11/20/18 11/21/18 11/22/18 23:59 23:59 23:59 Intake Total 1505 / 1505 1230 / 1230 1370 / 1370 Output Total 900 / 900 375 / 375 Balance 1505 / 1505 330 / 330 995 / 995 General: Alert, Oriented x3, Cooperative, No apparent distress HEENT: Atraumatic, PERRLA, EOMI, Normocephalic Oral: Moist Mucosa Neck: Supple Lungs: Clear to auscultation, Normal air movement Cardiovascular: Regular rate, Regular Rhythm, Normal S1, Normal S2, No murmurs Abdomen: Bowel Sounds Present, Soft, Non Tender, Non-Distended, No Hepato-splenomegaly Extremities: No edema Skin: - - see lower leg Musculoskeletal: Tenderness - over the right lower leg with bruising over the posterolateral right leg Lymphatic: No Cervical, Supraclavicular, or Inguinal Adenopathy Neurological: Cranial nerves II-XII grossly intact, Neuro grossly intact Psych/Mental Status: Normal Affect, Appropriate Microbiology Past 72 Hours 11/15/18 06:40 Blood Culture (Wb) - Right Hand Blood Culture - Final No growth in 5 days. 11/15/18 06:45 Blood Culture (Wb) - Anticubital Right Blood Culture - Final No growth in 5 days. 11/19/18 22:30 Stool Stool Occult Blood (WILL) - Final Occult Blood Positive Laboratory Results 11/21/18 16:54: POC Glucose 106 11/21/18 21:41: POC Glucose 99 11/22/18 05:25: Sodium 142, Potassium 3.9, Chloride 111 H, Carbon Dioxide 20.0 L, BUN 91 H, Creatinine 2.78 H, Estim Creat Clear Calc 13.62, Est GFR (MDRD) Af Amer 21 L, Est GFR (MDRD) Non-Af 18 L, BUN/Creatinine Ratio 32.7 H, Glucose 57 L, Calcium 7.7 L, Phosphorus 5.8 H, Iron 140, Ferritin 119, Albumin 2.4 L 11/22/18 05:25: WBC 7.8, RBC 2.92 L, Hgb 10.2 L, Hct 31.4 L, MCV 107.5 H, MCH 34.9 H, MCHC 32.5, RDW 16.9 H, RDW Differential 64.5 H, Plt Count 212, MPV 10.5, Immature Gran % (Auto) 0.500, Neut % (Auto) 62.9, Lymph % (Auto) 28.1, Young % (Auto) 6.1, Eos % (Auto) 1.9, Baso % (Auto) 0.5, Absolute Neuts (auto) 4.9, Absolute Lymphs (auto) 2.18, Total Counted Not Reportable 11/22/18 05:25: PT 15.8 H, INR 1.3, APTT 38.3 H 11/22/18 05:27: POC Glucose 52 L 11/22/18 06:42: POC Glucose 71 11/22/18 08:12: Activated Clotting Time 219 H 11/22/18 10:21: POC Glucose 56 L 11/22/18 10:44: POC Glucose 66 L 11/22/18 11:12: POC Glucose 97 Current Medications Acetaminophen (Tylenol) 650 mg PO Q6H PRN PRN PRN Reason: PAIN Last Admin: 11/22/18 15:20 Dose: 650 mg Acetylcysteine (Mucomyst) 600 mg PO BID [facility] Last Admin: 11/22/18 10:40 Dose: 600 mg Aspirin (Aspirin, Baby) 81 mg PO DAILY@0800 [facility] Last Admin: 11/22/18 06:53 Dose: 81 mg Atenolol (Tenormin (Beta Elvia)) 50 mg PO DAILY [facility] Last Admin: 11/22/18 06:53 Dose: 50 mg Atorvastatin Calcium (Lipitor) 80 mg PO QHS [facility] Last Admin: 11/21/18 21:29 Dose: Not Given Atropine Sulfate () 0.5 mg IV UD PRN PRN Reason: HR <50 bpm Azathioprine (Imuran) 100 mg PO DAILY@0800 [facility] Last Admin: 11/22/18 10:27 Dose: 100 mg Budesonide (Budesonide Ec) 3 mg PO DAILY [facility] Last Admin: 11/22/18 10:27 Dose: 3 mg Calamine/Phenol (Calmoseptine Ointment) 1 applic TOPICAL TID [facility]; Protocol Last Admin: 11/22/18 10:32 Dose: 1 applic Clopidogrel Bisulfate (Plavix) 75 mg PO DAILY [facility] Last Admin: 11/22/18 06:49 Dose: 75 mg Dextrose (D50w Syringe) 0 gm IV X1 PRN; Protocol PRN Reason: Hypoglycemia Last Admin: 11/22/18 07:09 Dose: 12.5 gm Diazepam (Valium) 5 mg PO Q6H PRN PRN PRN Reason: BACK SPASMS/ANXIETY Doxycycline Monohydrate (Doxycycline) 100 mg PO BID [facility] Last Admin: 11/22/18 10:27 Dose: 100 mg Furosemide (Lasix) 40 mg PO BID@1000,1800 [facility] Last Admin: 11/22/18 10:27 Dose: 40 mg Glucagon () 1 mg IM .X1 PRN PRN Reason: Hypoglycemia Heparin Sodium (Beef Lung) (Heparin 500 Unit/5 Ml (100/Ml)) 500 unit IV UD PRN PRN Reason: HEPARIN FLUSH Hydralazine HCl (Apresoline) 25 mg PO BID [facility] Last Admin: 11/22/18 06:50 Dose: 25 mg Sodium Chloride () 250 mls @ 15 mls/hr IV .[id number] PRN PRN Reason: SALINE FLUSH Last Admin: 11/15/18 10:12 Dose: 15 mls/hr Sodium Chloride () 1,000 mls @ 0 mls/hr IV .Q0M CIERRA Sodium Chloride () 1,000 mls @ 0 mls/hr IV .Q0M CIERRA Sodium Chloride () 1,000 mls @ 150 mls/hr IV .Q6H40M [facility] Stop: 11/22/18 16:15 Last Admin: 11/22/18 10:28 Dose: 150 mls/hr Nitroglycerin/Dextrose 25 mg/ (N/A) 250 mls @ 3 mls/hr IV .[id number] [facility] Last Admin: 11/22/18 10:28 Dose: 3 mls/hr Insulin Glargine (Lantus ([facility])) 45 units SC BREAKFAST [facility] Last Admin: 11/22/18 10:26 Dose: Not Given Insulin Human Lispro (Humalog Kwikpen ([facility])) 0 unit SQ ACHS [facility]; Protocol Last Admin: 11/22/18 10:32 Dose: Not Given Isosorbide Mononitrate (Imdur) 60 mg PO DAILY [facility] Last Admin: 11/22/18 06:49 Dose: 60 mg Labetalol HCl (Trandate) 5 mg IV X1 PRN PRN Reason: SBP > 160 when pulling sheath Magnesium Hydroxide (Milk Of Magnesia) 30 ml PO DAILY PRN PRN PRN Reason: Constipation Metoclopramide HCl (Reglan) 5 mg IV Q6H PRN PRN PRN Reason: NAUSEA/VOMITING Metoprolol Tartrate (Lopressor (Beta Elvia)) 2.5 mg IV Q6H PRN PRN Reason: BLOOD PRESSURE ELEVATION Last Admin: 11/15/18 14:41 Dose: 2.5 mg Nitroglycerin (Nitrostat) 0.4 mg SUBLINGUAL Q5M PRN PRN Reason: CARDIAC/CHEST PAIN Last Admin: 11/19/18 21:57 Dose: 0.4 mg Nystatin (Mycostatin Powder) 1 applic TOPICAL BID [facility]; Protocol Last Admin: 11/22/18 10:31 Dose: 1 applic Ondansetron HCl (Zofran) 4 mg IV Q6H PRN PRN PRN Reason: NAUSEA Last Admin: 11/20/18 22:44 Dose: 4 mg Pantoprazole Sodium (Protonix) 20 mg PO DAILY [facility] Last Admin: 11/22/18 10:27 Dose: 20 mg Ranolazine (Ranexa) 500 mg PO BID [facility] Last Admin: 11/22/18 10:28 Dose: 500 mg Sodium Bicarbonate (Sodium Bicarbonate) 650 mg PO BID [facility] Last Admin: 11/22/18 10:28 Dose: 650 mg Sodium Chloride () 5 - 15 ml IV UD PRN PRN Reason: SALINE FLUSH Last Admin: 11/22/18 07:12 Dose: 10 ml Sodium Chloride ([place] Nasal [place]) 2 spray NASAL TID PRN PRN PRN Reason: NASAL DRYNESS Last Admin: 11/17/18 07:57 Dose: 2 spray Sodium Chloride () 500 ml IV BOLUS PRN PRN Reason: VASO-VAGAL PROTOCOL Medical Necessity - Tobacco Use Smoking Status: Never smoker Assessment/Plan All Active Problems (Last Reviewed 11/20/18 @ 09:21 by Greyson Bruno MD) GI bleed (Acute) Acute coronary syndrome (Acute) Non-STEMI (non-ST elevated myocardial infarction) (Acute) Hypercholesterolemia (Acute) Congestive heart failure of unknown etiology (Acute) Abnormal EKG (Acute) 78 y/o female with PMHx of Hypertension, Type 2 DM, CKD stage IV who was admitted with chest pain and shortness of breath. 1. NSTEMI s/p cath cath today, s/p stents to diagonal #2, mid-LAD, prox. LAD, aspirin, Plavix, statin, beta-elvia Currently being managed post-cath in the ICU, will continue with post-cath instructions 2. Rectal bleeding, likely secondary to hemorrhoids, colonoscopy planned by general surgery in the outpatient 3. Acute blood loss anemia s/p transfusion of one unit of PRBC, hemoglobin remained stable at 10.2 4. Acute on chronic diastolic CHF, on IV Lasix, oral Lasix on hold for now diuresing fairly, lost 3 kg since admission, continue on CHF protocol 5. Acute hypoxic respiratory failure secondary to acute diastolic CHF/NSTEMI, resolved, on room air at the moment 6. Severe sepsis secondary to cellulitis, remains on doxycycline 7. Epistaxis, resolved 8. JOSE on CKD stage 4, creatinine increased from 2.59-2.78, nephrology following, labs in a.m. 9. Hypertension, controlled, continue current blood pressure medications 10. Type 2 DM, blood sugars are fairly stable with episode of hypoglycemia was kept n.p.o., decrease Lantus in the morning to 30 units and continue to monitor 11. Acute NAGMA secondary to JOSE, appears to be improving, 12. DVT PPx- SCDs; no heparin secondary to GI bleed/epistaxis Code Visit Inpatient E&M: 39665 Subs Hosp L3
[2018-11-22] MEDS: Insulin Lispro 100 UNIT/ML INSULN.PEN SQ ×2 (17:02→22:09)
[2018-11-22] MEDS: Furosemide 40 MG/4 ML Vial IV (17:03)
[2018-11-22 17:06] LABS: Bedside Glucose 167 mg/dL (70-110)
--- NOTE | 2018-11-22 17:27 | PCM.PN.REN ---
Patient Problems: Active and Suspected Problems (Last Reviewed 11/20/18 @ 09:21 by Greyson Bruno MD) GI bleed (Acute) Acute coronary syndrome (Acute) Non-STEMI (non-ST elevated myocardial infarction) (Acute) Hypercholesterolemia (Acute) Congestive heart failure of unknown etiology (Acute) Abnormal EKG (Acute) Subjective: s/p PCI LAD. Transferred to ICU. Denied chest pain, nausea, vomiting, shortness of breath. Remains nonolguric, elevation in creatinine today. - Physical Exam General: Alert, Oriented x3 Lungs: Rales Cardiovascular: Regular rate Abdomen: Bowel Sounds Present, Soft, Non Tender Extremities: Edema - decreased Musculoskeletal: No Muscle Wasting Psych/Mental Status: Normal Affect, Appropriate Vital Signs Temp Pulse Resp BP Pulse Ox 98.5 F 75 17 138/59 H 97 11/22/18 16:00 11/22/18 17:15 11/22/18 17:15 11/22/18 17:15 11/22/18 17:15 Oxygen Flow Rate (L/min) 98 Oxygen Delivery Method Room Air Weight: 77.564 kg Body Mass Index (BMI) 31.1 Finger Stick Blood Glucose 159 Intake and Output for Last 24 Hours 11/20/18 11/21/18 11/22/18 23:59 23:59 23:59 Intake Total 1505 / 1505 1230 / 1230 2120 / 2120 Output Total 900 / 900 375 / 375 Balance 1505 / 1505 330 / 330 1745 / 1745 Microbiology Past 72 Hours 11/15/18 06:40 Blood Culture - Final Blood Culture (Wb) - Right Hand No growth in 5 days. 11/15/18 06:45 Blood Culture - Final Blood Culture (Wb) - Anticubital Right No growth in 5 days. 11/19/18 22:30 Stool Occult Blood (WILL) - Final Stool Occult Blood Positive Laboratory Tests Past 24 Hrs 11/22/18 11/22/18 11/22/18 05:25 05:25 05:25 WBC 7.8 RBC 2.92 L Hgb 10.2 L Hct 31.4 L MCV 107.5 H MCH 34.9 H MCHC 32.5 RDW 16.9 H RDW Differential 64.5 H Plt Count 212 MPV 10.5 Immature Gran % (Auto) 0.500 Neut % (Auto) 62.9 Lymph % (Auto) 28.1 Gilliam % (Auto) 6.1 Eos % (Auto) 1.9 Baso % (Auto) 0.5 Absolute Neuts (auto) 4.9 Absolute Lymphs (auto) 2.18 Total Counted Not Reportable PT 15.8 H INR 1.3 APTT 38.3 H Activated Clotting Time Sodium 142 Potassium 3.9 Chloride 111 H Carbon Dioxide 20.0 L BUN 91 H Creatinine 2.78 H Estim Creat Clear Calc 13.62 Est GFR (MDRD) Af Amer 21 L Est GFR (MDRD) Non-Af 18 L BUN/Creatinine Ratio 32.7 H Glucose 57 L Calcium 7.7 L Phosphorus 5.8 H Iron 140 Ferritin 119 Albumin 2.4 L 11/22/18 08:12 WBC RBC Hgb Hct MCV MCH MCHC RDW RDW Differential Plt Count MPV Immature Gran % (Auto) Neut % (Auto) Lymph % (Auto) Gilliam % (Auto) Eos % (Auto) Baso % (Auto) Absolute Neuts (auto) Absolute Lymphs (auto) Total Counted PT INR APTT Activated Clotting Time 219 H Sodium Potassium Chloride Carbon Dioxide BUN Creatinine Estim Creat Clear Calc Est GFR (MDRD) Af Amer Est GFR (MDRD) Non-Af BUN/Creatinine Ratio Glucose Calcium Phosphorus Iron Ferritin Albumin POC Glucose 11/22/18 11/22/18 11/22/18 16:52 11:12 10:44 POC Glucose 167 H 97 66 L 11/22/18 11/22/18 11/22/18 10:21 06:42 05:27 POC Glucose 56 L 71 52 L 11/21/18 21:41 POC Glucose 99 Medical Necessity - Tobacco Use Smoking Status: Never smoker Assessment/Plan All Active Problems (Last Reviewed 11/20/18 @ 09:21 by Greyson Bruno MD) GI bleed (Acute) Acute coronary syndrome (Acute) Non-STEMI (non-ST elevated myocardial infarction) (Acute) Hypercholesterolemia (Acute) Congestive heart failure of unknown etiology (Acute) Abnormal EKG (Acute) 1. Acute on chronic kidney disease stage IV likely due to ATN. PCI today. COntinue to monitor renal fxn. Nonoliguric with stable volume status. Continue po lasix. 2. Acute coronary syndrome, NSTEMI with positive troponins, ECG changes. Underwent heart catheterization on 11/16 s/p PCI today. 3. Acute ischemic CHF, Continue with oral Lasix therapy 4. Acute GI bleed hemoglobin stable 5. Acute diarrhea resolved 6. Anemia check iron studies. 7. 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 PTH 186 Hold calcitriol. Currently on oral doxycycline with improvement in cellulitis.
[2018-11-22] MEDS: Atorvastatin Calcium 80 MG Tablet PO (22:00)
[2018-11-22 22:17] LABS: Bedside Glucose 172 mg/dL (70-110)
[2018-11-23] VITALS (11 sets, daily range): BP systolic 116–145; BP diastolic 56–64; PULSE 76–81; RESP 13–18; TEMP 36.6–36.9; O2SAT 97–98
[2018-11-23 04:18] LABS: Hematocrit 29.8 % (37-47); Hemoglobin 9.6 g/dl (12.0-15.0); Mean Corp Hgb Conc 32.2 g/gl (32-36); Mean Corpuscular Hgb 35.2 pg (27.0-32.0); Mean Corpuscular Volume 109.2 fL (81-99); Mean Platelet Vol. 10.4 fl (6.2-12.0); Platelet Count 220 K/mm3 (150-450); RBC Distribution Width CV 16.3 % (11.6-14.6); RBC Distribution Width SD 62.5 fl (35.1-43.9); Red Blood Count 2.73 M/mm3 (4.2-5.4); White Blood Count 7.3 K/mm3 (4.4-11.0)
[2018-11-23 04:20] LABS: Anion Gap 14 (5-15); BUN 91 mg/dL (7-18); BUN/Creat Ratio 30.4 RATIO (10-20); Calcium,Total 7.5 mg/dL (8.5-10.1); Chloride 108 mmol/L (98-107); Creatinine, Serum 2.99 mg/dL (0.55-1.02); EST Glomerular Filtration Rate 16 mL/min (>60); Est Glom Filt Rate - Afr Amer 20 mL/min (>60); Estimated Creatinine Clearance 12.66 ml/min; Glucose 125 mg/dL (74-106); Potassium 4.2 mmol/L (3.5-5.1); Scan Indicated on CBC? Y/N NO; Sodium Level 141 mmol/L (136-145)
[2018-11-23 06:46] LABS: Bedside Glucose 107 mg/dL (70-110)
--- NOTE | 2018-11-23 08:07 | PCM.PN.CARD ---
Subjectve: Patient seen and evaluated. Appears to be doing well. No chest pain says she is breathing better Objective: Vital Signs Temp Pulse Resp BP Pulse Ox 98.4 F 78 14 145/64 H 98 11/23/18 04:00 11/23/18 07:00 11/23/18 07:00 11/23/18 07:00 11/23/18 07:00 Oxygen Flow Rate (L/min) 98 Oxygen Delivery Method Room Air Weight: 171 lb 15.369 oz Body Mass Index (BMI) 31.1 Finger Stick Blood Glucose 159 Intake and Output for Last 24 Hours 11/21/18 11/22/18 11/23/18 23:59 23:59 23:59 Intake Total 1230 / 1230 2301.7 / 2301.7 63 / 63 Output Total 900 / 900 525 / 525 400 / 400 Balance 330 / 330 1776.7 / 1776.7 -337 / -337 General: Awake, Alert, Oriented x 3 HEENT: PERRL, EOMI, Sclera Non Icteric Neck: Supple, Good ROM, No Lymph Node Enlargement Lungs: Clear to auscultation Cardiovascular: Regular Rhythm, Normal S1, Normal S2, No Murmurs, No Rubs, No Gallops Vascular: No Carotid Bruits, Normal Femoral Pulses, Normal Radial Pulses, Normal Dorsalis Pedal Pulse, Normal Posterior Tibial Pulses Abdomen: Bowel Sounds Present, Soft, Non Tender, No HSM, No Organomegaly Extremities: No Cyanosis, No Clubbing, No edema Neurological: No Focal Motor or Sensory Deficit Psych/Mental Status: Appropriate 11/23/18 04:00: WBC 7.3, RBC 2.73 L, Hgb 9.6 L, Hct 29.8 L, MCV 109.2 H, MCH 35.2 H, MCHC 32.2, RDW 16.3 H, RDW Differential 62.5 H, Plt Count 220, MPV 10.4 11/23/18 04:00: Sodium 141, Potassium 4.2, Chloride 108 H, Carbon Dioxide 19.0 L, Anion Gap 14, BUN 91 H, Creatinine 2.99 H, Est GFR (MDRD) Af Amer 20 L, Est GFR (MDRD) Non-Af 16 L, BUN/Creatinine Ratio 30.4 H, Glucose 125 H, Calcium 7.5 L Rhythm: EKG: ECHO: Stress Test: Cardiac Cath: PCI: CT Surgery: Holter monitor: EPS: PPM: CXR: Chest CT Scan: Medical Necessity - Tobacco Use Smoking Status: Never smoker Assessment/Plan 1. Congestive heart failure: The patient had signs and symptoms of biventricular congestive heart failure. The above appears to have resolved. Echocardiogram shows an EF around 50%, with RVSP of 48 mmHg. We will need to balance her IV fluid requirements with diuresis. 2. Coronary artery disease: Patient underwent angiogram on 11/16/18 after she was diuresed for congestive heart failure and was able to lay down flat. This was done without an LV angiogram to conserve dye and protect her kidneys. This demonstrated an occluded left circumflex which was small, 2 tandem lesions in the mid LAD, calcified right coronary artery with nonobstructive proximal mid and distal disease with evidence of proximal posterior lateral stenosis in mid PDA stenosis as well. As per the evaluation by the interventional list it does not appear that she is a good surgical risk candidate. She underwent angioplasty and stenting of the left anterior descending artery yesterday successfully. Her hemoglobin appears to be stable. She has had some increase in her creatinine which was not unexpected. We will continue with cautious hydration this morning The plan will be to check her creatinine early next week as well as a follow-up in our office. 3. Chronic renal insufficiency: Given the patient's chronic renal insufficiency as she is at high risk for temporary or permanent renal insufficiency from acute tubular necrosis from IV contrast dye exposure. 4. Hyperlipidemia: Recommend obtaining a fasting profile. Her LDL should be less than 70 given her diabetes and non-STEMI. 5. Thank you very much for the opportunity to participate in in the cardiac care of your patient. We will discuss with the family the options regarding the timing of intervention.
--- NOTE | 2018-11-23 08:11 | PN.CARD_ITS ---
Subjectve: Patient seen and evaluated. Appears to be doing well. No chest pain says she is breathing better Objective: Vital Signs Temp Pulse Resp BP Pulse Ox 98.4 F 78 14 145/64 H 98 11/23/18 04:00 11/23/18 07:00 11/23/18 07:00 11/23/18 07:00 11/23/18 07:00 Oxygen Flow Rate (L/min) 98 Oxygen Delivery Method Room Air Weight: 171 lb 15.369 oz Body Mass Index (BMI) 31.1 Finger Stick Blood Glucose 159 Intake and Output for Last 24 Hours 11/21/18 11/22/18 11/23/18 23:59 23:59 23:59 Intake Total 1230 / 1230 2301.7 / 2301.7 63 / 63 Output Total 900 / 900 525 / 525 400 / 400 Balance 330 / 330 1776.7 / 1776.7 -337 / -337 General: Awake, Alert, Oriented x 3 HEENT: PERRL, EOMI, Sclera Non Icteric Neck: Supple, Good ROM, No Lymph Node Enlargement Lungs: Clear to auscultation Cardiovascular: Regular Rhythm, Normal S1, Normal S2, No Murmurs, No Rubs, No Gallops Vascular: No Carotid Bruits, Normal Femoral Pulses, Normal Radial Pulses, Normal Dorsalis Pedal Pulse, Normal Posterior Tibial Pulses Abdomen: Bowel Sounds Present, Soft, Non Tender, No HSM, No Organomegaly Extremities: No Cyanosis, No Clubbing, No edema Neurological: No Focal Motor or Sensory Deficit Psych/Mental Status: Appropriate 11/23/18 04:00: WBC 7.3, RBC 2.73 L, Hgb 9.6 L, Hct 29.8 L, MCV 109.2 H, MCH 35.2 H, MCHC 32.2, RDW 16.3 H, RDW Differential 62.5 H, Plt Count 220, MPV 10.4 11/23/18 04:00: Sodium 141, Potassium 4.2, Chloride 108 H, Carbon Dioxide 19.0 L , Anion Gap 14, BUN 91 H, Creatinine 2.99 H, Est GFR (MDRD) Af Amer 20 L, Est GFR (MDRD) Non-Af 16 L, BUN/Creatinine Ratio 30.4 H, Glucose 125 H, Calcium 7.5 L Rhythm: EKG: ECHO: Stress Test: Cardiac Cath: PCI: CT Surgery: Holter monitor: EPS: PPM: CXR: Chest CT Scan: Medical Necessity - Tobacco Use Smoking Status: Never smoker Assessment/Plan 1. Congestive heart failure: * The patient had signs and symptoms of biventricular congestive heart failure. The above appears to have resolved. Echocardiogram shows an EF around 50%, with RVSP of 48 mmHg. * We will need to balance her IV fluid requirements with diuresis. 2. Coronary artery disease: Patient underwent angiogram on 11/16/18 after she was diuresed for congestive heart failure and was able to lay down flat. This was done without an LV angiogram to conserve dye and protect her kidneys. This demonstrated an occluded left circumflex which was small, 2 tandem lesions in the mid LAD, calcified right coronary artery with nonobstructive proximal mid and distal disease with evidence of proximal posterior lateral stenosis in mid PDA stenosis as well. As per the evaluation by the interventional list it does not appear that she is a good surgical risk candidate. * She underwent angioplasty and stenting of the left anterior descending artery yesterday successfully. Her hemoglobin appears to be stable. She has had some increase in her creatinine which was not unexpected. We will continue with cautious hydration this morning * The plan will be to check her creatinine early next week as well as a follow- up in our office. 3. Chronic renal insufficiency: Given the patient's chronic renal insufficiency as she is at high risk for temporary or permanent renal insufficiency from acute tubular necrosis from IV contrast dye exposure. 4. Hyperlipidemia: Recommend obtaining a fasting profile. Her LDL should be less than 70 given her diabetes and non-STEMI. 5. Thank you very much for the opportunity to participate in in the cardiac care of your patient. We will discuss with the family the options regarding the timing of intervention.
--- NOTE | 2018-11-23 08:45 | PCM.DC ---
- Discharge Diagnoses Current Active Problems: Current Active and Chronic Problems (Last Reviewed 11/20/18 @ 09:21 by Greyson Bruno MD) GI bleed (Acute) Atherosclerotic heart disease of [place] coronary artery with other forms of angina pectoris (Chronic) PROX LAD: 75 % Stenosis; MID LAD: 85 % Stenosis; DIAGONAL 2: Proximal - Moderate luminal irregularities up to 50%; CIRCUMFLEX ARTERY: is occluded; RIGHT CORONARY ARTERY: Moderate calcification; PROX RCA: Mild luminal irregularities less than 30%; RT PLV: 75 % Stenosis; RT PDA: Mid - 75 % Stenosis (per [facility] Dr. Motta @ [facility] 11/16/2018) History of left heart catheterization (Chronic 11/16/18) PROX LAD: 75 % Stenosis; MID LAD: 85 % Stenosis; DIAGONAL 2: Proximal - Moderate luminal irregularities up to 50%; CIRCUMFLEX ARTERY: is occluded; RIGHT CORONARY ARTERY: Moderate calcification; PROX RCA: Mild luminal irregularities less than 30%; RT PLV: 75 % Stenosis; RT PDA: Mid - 75 % Stenosis (per [facility] Dr. Motta @ [facility] 11/16/2018) Acute coronary syndrome (Acute) Non-STEMI (non-ST elevated myocardial infarction) (Acute) Hypertension (Chronic) Hypercholesterolemia (Acute) Congestive heart failure of unknown etiology (Acute) Abnormal EKG (Acute) Reason(s) for Visit for Discharge Instructions: Chest pain You will use the following diet at home:: Cardiac Your food should be the consistency of: Regular Your liquids should be the consistency of: Regular/Thin Discharge Activity: Return to Normal Activity Additional Instructions: Continue to take your medications. Take note of changes in your medications especially your insulin regimen. Continue to monitor your BP and your weights daily. Limit your fluid intake to 1500-2000mls/day. Follow-up with cardiac rehab as scheduled. Follow-up with Dr. Andujar on Wednesday. Complete your antibiotics. Continue to monitor your cellulitis site. Follow-up with Dr. Okeefe with 1-2 weeks. Allergies/Adverse Reactions: Allergies codeine Adverse Reaction (Verified 11/15/18 06:12) Hives pain medications Adverse Reaction (Intermediate, Uncoded 11/15/18 06:12) nausea/vomiting Medications to take at Discharge Atenolol [Tenormin (beta marilyn)] 100 mg PO DAILY 12/05/17 Azathioprine [Imuran] 100 mg PO DAILY@0800 11/15/18 Budesonide [Budesonide EC] 3 mg PO DAILY 11/15/18 Aspirin [Aspirin, Baby] 81 mg PO DAILY@0800 #30 tab.chew 11/23/18 Atorvastatin Calcium [Lipitor] 80 mg PO QHS #30 tablet 11/23/18 Clopidogrel Bisulfate [Plavix] 75 mg PO DAILY #30 tablet 11/23/18 Doxycycline 100 mg PO BID #4 capsule 11/23/18 Furosemide [Lasix] 40 mg PO DAILY #30 tablet 11/23/18 Insulin Glargine [Lantus SoloStar Pen] 30 units SC BREAKFAST pen 11/23/18 Insulin Lispro [Humalog KwikPen] See Protocol SQ ACHS insuln.pen 11/23/18 Isosorbide Mononitrate [Imdur] 60 mg PO DAILY #30 tablet 11/23/18 Nitroglycerin [Nitrostat] 0.4 mg SUBLINGUAL Q5M PRN #10 tablet 11/23/18 Pantoprazole Sodium [Protonix] 20 mg PO DAILY #30 tablet 11/23/18 Ranolazine [Ranexa] 500 mg PO BID #60 11/23/18 Sodium Bicarbonate 650 mg PO BID #60 tablet 11/23/18 hydrALAZINE [Apresoline] 25 mg PO BID #60 tablet 11/23/18 The following prescriptions were given: Aspirin [Aspirin, Baby] 81 mg PO DAILY@0800 #30 tab.chew Atorvastatin Calcium [Lipitor] 80 mg PO QHS #30 tablet Clopidogrel Bisulfate [Plavix] 75 mg PO DAILY #30 tablet Furosemide [Lasix] 40 mg PO DAILY #30 tablet Isosorbide Mononitrate [Imdur] 60 mg PO DAILY #30 tablet Nitroglycerin [Nitrostat] 0.4 mg SUBLINGUAL Q5M PRN #10 tablet PRN Reason: Cardiac/Chest Pain Pantoprazole Sodium [Protonix] 20 mg PO DAILY #30 tablet Doxycycline 100 mg PO BID #4 capsule hydrALAZINE [Apresoline] 25 mg PO BID #60 tablet Ranolazine [Ranexa] 500 mg PO BID #60 Sodium Bicarbonate 650 mg PO BID #60 tablet Primary Care Physician: Taylor Alvarenga MD [Primary Care Provider] - Please follow up with your Primary Care Physician in: within 1-2 weeks Test Results: Test results from this visit will be discussed in further detail at your follow-up appointment, if applicable. Please Follow Up With: Regan Andujar MD When: On Tuesday 11/28 as scheduled Please Follow Up With: Irma Pearson DO When: as scheduled Proposed Discharge Date: 11/23/18
--- NOTE | 2018-11-23 09:01 | PCM.DC.SUM ---
Discharge Date and Diagnosis Date of Admission: 11/15/18 Date of Discharge: 11/23/18 - Primary Discharge Diagnosis Active and Suspected Problems (Last Reviewed 11/20/18 @ 09:21 by Greyson Bruno MD) Acute NSTEMI GI bleed Acute on chronic diastolic heart failure Acute hypoxic respiratory failure Severe sepsis secondary to cellulitis( right lower leg) Epistaxis AK I on CKD stage IV Acute blood loss anemia Non-anion gap metabolic acidosis - Secondary Discharge Diagnosis Chronic Problems (Last Reviewed 11/20/18 @ 09:21 by Greyson Bruno MD) Atherosclerotic heart disease of [place] coronary artery with other forms of angina pectoris (Chronic) PROX LAD: 75 % Stenosis; MID LAD: 85 % Stenosis; DIAGONAL 2: Proximal - Moderate luminal irregularities up to 50%; CIRCUMFLEX ARTERY: is occluded; RIGHT CORONARY ARTERY: Moderate calcification; PROX RCA: Mild luminal irregularities less than 30%; RT PLV: 75 % Stenosis; RT PDA: Mid - 75 % Stenosis (per [facility] Dr. Motta @ [facility] 11/16/2018) History of left heart catheterization (Chronic 11/16/18) PROX LAD: 75 % Stenosis; MID LAD: 85 % Stenosis; DIAGONAL 2: Proximal - Moderate luminal irregularities up to 50%; CIRCUMFLEX ARTERY: is occluded; RIGHT CORONARY ARTERY: Moderate calcification; PROX RCA: Mild luminal irregularities less than 30%; RT PLV: 75 % Stenosis; RT PDA: Mid - 75 % Stenosis (per [facility] Dr. Motta @ [facility] 11/16/2018) Hypertension (Chronic) Hospital Course and Treatment Imaging Results: Clinical Impression(s) from Imaging Studies Chest X-Ray 11/15/18 06:23 IMPRESSION: Mild cardiomegaly with chronic interstitial changes in the lungs. No pleural effusions Electronically Signed: Rubin Irwin MD at 6:44 EST Tel , Service support , Cardiology Nephrology General surgery Procedures: Cardiac catheterization Summary of Care Provided: The patient is a 78 year old F with multiple comorbidities who was admitted on 11/15/18 with chest pain and shortness of breath. Patient had seen her PCP a few days prior to admission, started on Bumex for fluid overload. She was also on Keflex for right lower extremity cellulitis. In the emergency department, she was tachycardic, heart rate was 103, tachypneic, respiratory rate was 25, her blood work showed troponin of 1.43, lactic acid of 3.0, creatinine of 2.05, WBC count of 16, Hb of 10.6, platelet count of 213, BMP of 2699. Chest x-ray was suggestive of mild cardiomegaly with chronic interstitial changes. EKG showed T wave inversions in the inferior leads concerning for ischemia. Patient was admitted to the telemetry floor, cardiology was consulted for acute N STEMI, she was also managed on Lasix for acute on chronic diastolic heart failure as well as oxygen for acute hypoxic respiratory failure. She was initially started on IV vancomycin and Zosyn for severe sepsis secondary to cellulitis. Nephrology was consulted. Patient underwent cardiac cath; findings showed an occluded left circumflex, 2 tandem lesions of the mid LAD, calcified right RCA with nonobstructive edema, mid and distal disease with evidence of post stent mild posterior lateral stenosis in the mid PDA. She underwent stenting of her LAD successfully. She was evaluated by the interventionalist and deemed not a surgical candidate. Patient was discharged in a stable state on antibiotics. She will follow-up with cardiology and nephrology and have repeat kidney function. Subjective: Patient seen and examined. She feels well. Been ambulating in the room. Denies chest pain, dizziness, palpitations. Objective: Physical exam: General: Alert, Oriented x3, Cooperative, No apparent distress HEENT: Atraumatic, PERRLA, EOMI, Normocephalic Oral: Moist Mucosa Neck: Supple Lungs: Clear to auscultation, Normal air movement Cardiovascular: Regular rate, Regular Rhythm, Normal S1, Normal S2, No murmurs Abdomen: Bowel Sounds Present, Soft, Non Tender, Non-Distended, No Hepato-splenomegaly Extremities: No edema Skin: - - see lower leg Musculoskeletal: Tenderness - over the right lower leg with bruising over the posterolateral right leg Lymphatic: No Cervical, Supraclavicular, or Inguinal Adenopathy Neurological: Cranial nerves II-XII grossly intact, Neuro grossly intact Psych/Mental Status: Normal Affect, Appropriate - Physical Exam Vital Signs Temp Pulse Resp BP Pulse Ox 98.3 F 77 18 145/60 H 98 11/23/18 08:00 11/23/18 08:00 11/23/18 08:00 11/23/18 08:00 11/23/18 08:00 Oxygen Flow Rate (L/min) 98 Oxygen Delivery Method Room Air Weight: 78 kg Body Mass Index (BMI) 31.1 Finger Stick Blood Glucose 159 Intake and Output for Last 24 Hours 11/21/18 11/22/18 11/23/18 23:59 23:59 23:59 Intake Total 1230 / 1230 2301.7 / 2301.7 63 / 63 Output Total 900 / 900 525 / 525 400 / 400 Balance 330 / 330 1776.7 / 1776.7 -337 / -337 Microbiology Past 72 Hours 11/15/18 06:40 Blood Culture - Final Blood Culture (Wb) - Right Hand No growth in 5 days. 11/15/18 06:45 Blood Culture - Final Blood Culture (Wb) - Anticubital Right No growth in 5 days. Laboratory Tests Past 24 Hrs 11/23/18 11/23/18 04:00 04:00 WBC 7.3 RBC 2.73 L Hgb 9.6 L Hct 29.8 L MCV 109.2 H MCH 35.2 H MCHC 32.2 RDW 16.3 H RDW Differential 62.5 H Plt Count 220 MPV 10.4 Sodium 141 Potassium 4.2 Chloride 108 H Carbon Dioxide 19.0 L Anion Gap 14 BUN 91 H Creatinine 2.99 H Estim Creat Clear Calc 12.66 Est GFR (MDRD) Af Amer 20 L Est GFR (MDRD) Non-Af 16 L BUN/Creatinine Ratio 30.4 H Glucose 125 H Calcium 7.5 L POC Glucose 11/23/18 11/22/18 11/22/18 06:39 22:04 16:52 POC Glucose 107 172 H 167 H 11/22/18 11/22/18 11/22/18 11:12 10:44 10:21 POC Glucose 97 66 L 56 L Discharge Diet: Low fat/ Low Cholesterol, 2000 mg Sodium Diet, Carb Control Diet Discharge Activity: Return to Normal Activity Home Medications: Medications to take at Discharge Atenolol [Tenormin (beta marilyn)] 100 mg PO DAILY 12/05/17 Azathioprine [Imuran] 100 mg PO DAILY@0800 11/15/18 Budesonide [Budesonide EC] 3 mg PO DAILY 11/15/18 Aspirin [Aspirin, Baby] 81 mg PO DAILY@0800 #30 tab.chew 11/23/18 Clopidogrel Bisulfate [Plavix] 75 mg PO DAILY #30 tablet 11/23/18 Doxycycline 100 mg PO BID #4 capsule 11/23/18 Furosemide [Lasix] 40 mg PO DAILY #30 tablet 11/23/18 Insulin Glargine [Lantus SoloStar Pen] 30 units SC BREAKFAST pen 11/23/18 Insulin Lispro [Humalog KwikPen] See Protocol SQ ACHS insuln.pen 11/23/18 Isosorbide Mononitrate [Imdur] 60 mg PO DAILY #30 tablet 11/23/18 Nitroglycerin [Nitrostat] 0.4 mg SUBLINGUAL Q5M PRN #10 tablet 11/23/18 Pantoprazole Sodium [Protonix] 20 mg PO DAILY #30 tablet 11/23/18 Ranolazine [Ranexa] 500 mg PO BID #60 11/23/18 Sodium Bicarbonate 650 mg PO BID #60 tablet 11/23/18 hydrALAZINE [Apresoline] 25 mg PO BID #60 tablet 11/23/18 pravastatin 20 mg tablet 20 mg PO QHS #30 tab 11/24/18 Following Prescrptions Were Given to Patient: Aspirin [Aspirin, Baby] 81 mg PO DAILY@0800 #30 tab.chew Clopidogrel Bisulfate [Plavix] 75 mg PO DAILY #30 tablet Furosemide [Lasix] 40 mg PO DAILY #30 tablet Isosorbide Mononitrate [Imdur] 60 mg PO DAILY #30 tablet Nitroglycerin [Nitrostat] 0.4 mg SUBLINGUAL Q5M PRN #10 tablet PRN Reason: Cardiac/Chest Pain Pantoprazole Sodium [Protonix] 20 mg PO DAILY #30 tablet Doxycycline 100 mg PO BID #4 capsule hydrALAZINE [Apresoline] 25 mg PO BID #60 tablet Ranolazine [Ranexa] 500 mg PO BID #60 Sodium Bicarbonate 650 mg PO BID #60 tablet Primary Care Physician: Taylor Alvarenga MD [Primary Care Provider] - Please follow up with your Primary Care Physician in: within 1-2 weeks Please Follow Up With: Regan Andujar MD When: On Tuesday 11/28 as scheduled Please Follow Up With: Irma Pearson DO When: as scheduled Disposition: Home with Home Health Minutes spent on discharge:: 40 Patient Condition:: Stable Medical Necessity - Tobacco Use Smoking Status: Never smoker Tobacco Use: Non-smoker Meaningful Use Info Meaningful Use Diagnoses (Choose all that apply): CHF - CHF DEWEY/ARB ordered at discharge?: No Reason DEWEY/ARB not ordered?: Worsening renal dysfunctn Documented LVEF (%): 50 Code Visit Inpatient E&M: 81413 Disch Hosp
[2018-11-23] MEDS: Acetaminophen 325 MG Tablet 650 MG PO (09:27)
[2018-11-23] MEDS: azaTHIOprine 50 MG Tablet 100 MG PO (09:28)
[2018-11-23] MEDS: Aspirin 81 MG TAB.CHEW PO (09:28)
[2018-11-23] MEDS: Pantoprazole Sodium 20 MG Tablet PO (09:28)
[2018-11-23] MEDS: Ranolazine 500 MG Tablet PO (09:28)
[2018-11-23] MEDS: Isosorbide Mononitrate 60 MG Tablet PO (09:29)
[2018-11-23] MEDS: Doxycycline 100 MG CAPSULE PO (09:29)
[2018-11-23] MEDS: Budesonide 3 MG CAPSULE.EC PO (09:29)
[2018-11-23] MEDS: Clopidogrel Bisulfate 75 MG Tablet PO (09:29)
[2018-11-23] MEDS: hydrALAZINE 25 MG Tablet PO (09:29)
[2018-11-23] MEDS: Sodium Bicarbonate 650 MG Tablet PO (09:29)
[2018-11-23] MEDS: Atenolol 50 MG Tablet PO (09:30)
--- NOTE | 2018-11-23 09:36 | EKG12_ITS ---
Test Reason : AM EKG Blood Pressure : / mmHG Vent. Rate : 078 BPM Atrial Rate : 078 BPM P-R Int : 158 ms QRS Dur : 130 ms QT Int : 424 ms P-R-T Axes : 006 017 -38 degrees QTc Int : 483 ms Normal sinus rhythm Right bundle branch block Abnormal ECG When compared with ECG of 22-NOV-2018 05:18, MANUAL COMPARISON REQUIRED, DATA IS UNCONFIRMED Confirmed by ROCHELLE BRYSON, TONIA ([id number]), state editor SALAZAR MOHAMUD ([id number]) on 11/28/2018 5:30:35 PM Referred By: ELMA Confirmed By:TONIA BYRD MD
--- NOTE | 2018-11-23 10:46 | PCM.PN.REN ---
Subjective: Denies chest pain, nausea, vomiting. Creatinine increased to 2.99. DC to home on lasix with repeat labs later this week and next week. Rales improved with lasix. Spouse at bedside - Physical Exam General: Alert, Oriented x3, Cooperative, No apparent distress Lungs: Clear to auscultation - less rales Cardiovascular: Regular rate Extremities: Edema Psych/Mental Status: Alert and oriented to time, place, person, mood and affect Vital Signs Temp Pulse Resp BP Pulse Ox 98.3 F 81 18 145/60 H 98 11/23/18 08:00 11/23/18 09:29 11/23/18 08:00 11/23/18 08:00 11/23/18 08:40 Oxygen Flow Rate (L/min) 98 Oxygen Delivery Method Room Air Weight: 78 kg Body Mass Index (BMI) 31.1 Finger Stick Blood Glucose 159 Intake and Output for Last 24 Hours 11/21/18 11/22/18 11/23/18 23:59 23:59 23:59 Intake Total 1230 / 1230 2301.7 / 2301.7 63 / 63 Output Total 900 / 900 525 / 525 400 / 400 Balance 330 / 330 1776.7 / 1776.7 -337 / -337 Microbiology Past 72 Hours 11/15/18 06:40 Blood Culture - Final Blood Culture (Wb) - Right Hand No growth in 5 days. 11/15/18 06:45 Blood Culture - Final Blood Culture (Wb) - Anticubital Right No growth in 5 days. Laboratory Tests Past 24 Hrs 11/23/18 11/23/18 04:00 04:00 WBC 7.3 RBC 2.73 L Hgb 9.6 L Hct 29.8 L MCV 109.2 H MCH 35.2 H MCHC 32.2 RDW 16.3 H RDW Differential 62.5 H Plt Count 220 MPV 10.4 Sodium 141 Potassium 4.2 Chloride 108 H Carbon Dioxide 19.0 L Anion Gap 14 BUN 91 H Creatinine 2.99 H Estim Creat Clear Calc 12.66 Est GFR (MDRD) Af Amer 20 L Est GFR (MDRD) Non-Af 16 L BUN/Creatinine Ratio 30.4 H Glucose 125 H Calcium 7.5 L POC Glucose 11/23/18 11/22/18 11/22/18 06:39 22:04 16:52 POC Glucose 107 172 H 167 H 11/22/18 11/22/18 11/22/18 11:12 10:44 10:21 POC Glucose 97 66 L 56 L Medical Necessity - Tobacco Use Smoking Status: Never smoker Assessment/Plan All Active Problems (Last Reviewed 11/20/18 @ 09:21 by Greyson Bruno MD) GI bleed (Acute) Acute coronary syndrome (Acute) Non-STEMI (non-ST elevated myocardial infarction) (Acute) Hypercholesterolemia (Acute) Congestive heart failure of unknown etiology (Acute) Abnormal EKG (Acute) 1. Acute on chronic kidney disease stage IV likely due to ATN from contrast. COntinue to monitor renal fxn as outpt. Creatinine increased to 2.99 today. Nonoliguric with stable volume status. Continue po lasix on discharge. 2. Acute coronary syndrome, NSTEMI with positive troponins, ECG changes. Underwent heart catheterization on 11/16 s/p PCI today. 3. Acute ischemic CHF, Continue with oral Lasix therapy as outpt 4. Acute GI bleed hemoglobin stable 5. 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 PTH 186 Hold calcitriol. Currently on oral doxycycline with improvement in cellulitis.
[2018-11-23 11:00] LABS: Folates, RBC Test 1229 ng/mL (>498)
--- NOTE | 2018-11-24 15:46 | CASEMGMT ---
DEVIN CM DC PHONE CALL DC DATE: 11/23/18 DC DISPOSITION: Home LACE/STRATA: 15/4 Attempted call to phone. Message left with call back information if questions re: dc instructions, f/u or prescriptions. Kristen RABAGON RN ACM
== END 2018-11-23 10:10 | disposition home or self-care (01) | DRG 246 ==
LOC: ED 07:24 → ICU 07:29 → PCU 11-21 10:16 → ICU 11-22 09:03
PROVIDERS: Family Medicine; Internal Medicine Cardiovascular Disease; Internal Medicine Nephrology; Admitting Provider Student in an Organized Health Care Education/Training Program; Emergency Provider Emergency Medicine; Family Provider Family Medicine; PCP Family Medicine; Visit Provider Internal Medicine
DX: I21.4 Non-ST elevation (NSTEMI) myocardial infarction (principal); J96.01 Acute respiratory failure with hypoxia; A41.9 Sepsis, unspecified organism; R65.20 Severe sepsis without septic shock; N17.0 Acute kidney failure with tubular necrosis; I50.33 Acute on chronic diastolic (congestive) heart failure; N18.4 Chronic kidney disease, stage 4 (severe); I13.0 Hypertensive heart and chronic kidney disease with heart failure and stage 1 through stage 4 chronic kidney disease, or unspecified chronic kidney disease; L03.115 Cellulitis of right lower limb; E87.2 Acidosis; D62 Acute posthemorrhagic anemia; K92.2 Gastrointestinal hemorrhage, unspecified; M06.9 Rheumatoid arthritis, unspecified; E11.22 Type 2 diabetes mellitus with diabetic chronic kidney disease; R04.0 Epistaxis; Z79.4 Long term (current) use of insulin; I25.119 Atherosclerotic heart disease of native coronary artery with unspecified angina pectoris; E78.00 Pure hypercholesterolemia, unspecified; T50.8X5A Adverse effect of diagnostic agents, initial encounter
CPT/HCPCS: 36415; 51702; 71045; 80048; 80061; 80069; 81001; 82274; 82607; 82728; 82747; 82962; 83036; 83540; 83605; 83880; 83970; 84484; 85014; 85025; 85027; 85347; 85610; 85730; 86850; 86900; 86920; 86922; 87040; 92921; 92928; 93005; 93306; 93454; 97110; 97116; 97162; 97166; 97530; 97535; 97802; 99284; C1760; J7030; J7050; P9016; Q9957; Q9967; A4216; C1725; C1769; C1874; C1887; C1894; C8929; C9600; J0295; J1940; J2405

== ENCOUNTER 2018-11-29 23:02 | Inpatient (IN) | payer MEDICARE, SELFPAY ==
[2018-11-15 08:37] VITALS: BMI 31.1
[2018-11-29 23:02] VITALS: BP 150/60; PULSE 67; RESP 14; TEMP 36.4; O2SAT 99; BMI 32.1
--- NOTE | 2018-11-29 23:14 | EKG12_ITS ---
Test Reason : GI BLEED Blood Pressure : / mmHG Vent. Rate : 068 BPM Atrial Rate : 068 BPM P-R Int : 186 ms QRS Dur : 144 ms QT Int : 464 ms P-R-T Axes : -08 007 028 degrees QTc Int : 493 ms Normal sinus rhythm Right bundle branch block Abnormal ECG Confirmed by ROCHELLE BRYSON, TONIA ([id number]), electronic news gathering editor SALAZAR MOHAMUD ([id number]) on 12/01/2018 3:53:06 PM Referred By: LADONNA Confirmed By:TONIA BYRD MD
--- NOTE | 2018-11-29 23:18 | ED.VISSUMM ---
- ER Visit Summary Date of Service: 11/29/18 Chief Complaint: Weakness, rectal bleeding History of Present Illness: The patient is a 78 F with recent admission for N STEMI who underwent cardiac catheterization with stenting presents with rectal bleeding. While in the hospital, the patient was having some rectal bleeding. She was evaluated by surgery. The thought was to hold on colonoscopy as she was undergoing catheterization. She was discharged on the . Since being home, she states that she had increasing weakness. She states that she had diffuse muscle pain and weakness to where she feels like she cannot get around. She states that she has bright red blood per rectum every day. She states it is mostly when she moves her bowels. She is point, where she feels like she cannot get around because she is so weak. She denies any fevers or chills. She has had some chest tightness and dyspnea which she states is been going on since her discharge. She is also had leg edema. She has no history of prior colonoscopy. She has had prior cholecystectomy, but no other abdominal surgery. Physical Examination: Vital signs reviewed General: Well-nourished, well-developed Head: Normocephalic, atraumatic Eyes: Pupils equal and reactive, extraocular muscles intact Neck, supple, no lymphadenopathy Heart: Regular rate and rhythm Respiratory: No distress, clear bilaterally Abdomen: Soft, nontender, nondistended, no peritoneal signs exam: Patient does have external hemorrhoids. There is gross blood. There is no active bleeding. Back: Nontender Extremities: Nontender, 2+ symmetric edema, no cords Skin: Normal color no rash Neuro: Alert and oriented, no focal or lateralizing deficits Test Results: [] Emergency Department Course and Treatment: [EKG was done on patient arrival. It was sinus rhythm. There is a right bundle branch block. There is no acute ischemic change. We had a difficult time establishing IV. Blood was able to be drawn. Patient's hemoglobin is stable. However, her creatinine is worsening. Her BUN is also markedly elevated 227. This is his highest ever been. I do feel that the patient is likely having symptomatic uremia. Phosphorus and magnesium were added. Her rectal bleeding appears to be stable. She does have evidence of external hemorrhoids. I do not see a clear indication for any acute intervention at this time. I am more concerned about the patient's worsening uremia and increasing weakness. I do have concern that she may be getting closer to dialysis. With her weakness and worsening renal function, I do feel the patient would benefit from observation and nephrology evaluation. Treatment Plan: [] Disposition: Admission Impression: 1. Uremia 2. Acute on chronic kidney injury 3. Stable rectal bleeding This note was generated with [employer] dictation software. It may contain incorrect words, spelling, and punctuation that were not noted in review of the chart prior to signing ED Disposition - Plan for ED Patient: Referrals: Taylor Alvarenga MD [Primary Care Provider] -
--- NOTE | 2018-11-29 23:25 | RAD_ITS ---
STUDY: X-RAY CHEST REASON FOR EXAM: Female, 78 years old. Cough. TECHNIQUE: Single AP portable view of the chest. COMPARISON: 11/15/2018. FINDINGS: Low lung volumes, less than prior study. Scattered irregular densities in both lungs have improved since prior exam indicating these were probably atelectasis or improving infiltrates. Persistent densities in both lung bases worse on the left. No effusions. There is mild cardiac enlargement. Normal mediastinum and will. Normal visualized pulmonary arteries. Normal visualized aortic arch and descending thoracic aorta. Normal visualized thoracic spine. Normal visualized ribs, clavicles, and shoulders. There is no demonstrated abnormality of the visualized soft tissue structures of the upper abdomen. RAD/Chest 1 View (Portable) IMPRESSION: Decreased lung volumes since previous exam. Mild atelectasis or infiltrate in the lung bases but improved since prior exam. Electronically Signed: Darin Sky MD at 23:48 EST , Service support ,
[2018-11-30] VITALS (27 sets, daily range): BP systolic 120–158; BP diastolic 49–70; PULSE 66–714; RESP 14–20; TEMP 36.3–36.9; O2SAT 95–99; BMI 32.2; BMI 32.3
[2018-11-30 00:53] LABS: Absolute Lymphocyte Count 2.99 X10^3/ul (0.83-4.51); Absolute Neutrophil Count 6.1 X10^3/uL (2.0-7.7); Basophil# 0.07 X10^3/uL; Basophil% 0.7 % (0-1); Eosinophil# 0.24 X10^3/uL; Eosinophils% 2.4 % (0-5); Hematocrit 30.2 % (37-47); Lymphocyte # 2.99 X10^3/ul (4.0); Lymphocyte % 29.7 % (19-41); Mean Corp Hgb Conc 33.1 g/gl (32-36); Mean Corpuscular Hgb 35.6 pg (27.0-32.0); Mean Corpuscular Volume 107.5 fL (81-99); Mean Platelet Vol. 11.1 fl (6.2-12.0); Monocyte# 0.58 X10^3/uL; Monocyte% 5.8 % (0-10); Neutrophil # 6.13 X10^3/uL (2.7-7.7); Neutrophil % 60.9 % (47-70); Platelet Count 283 K/mm3 (150-450); RBC Distribution Width SD 56.6 fl (35.1-43.9); Red Blood Count 2.81 M/mm3 (4.2-5.4); White Blood Count 10.1 K/mm3 (4.4-11.0)
[2018-11-30 00:56] LABS: POSITIVE COUNT NO; POSITIVE DIFFERENTIAL NO; POSITIVE MORPHOLOGY NO
[2018-11-30 01:01] LABS: International Normalized Ratio 1.3; Prothrombin Time (Protime)PT. 15.5 SECONDS (11.7-14.9)
[2018-11-30 01:06] LABS: Bacteria 0 SEEN /hpf (None Seen); Mucous, Urine 0 SEEN /hpf (<or=2+); Red Blood Cells-Urine 0 SEEN /hpf (0-5); Squamous Epithelial Cells - UA 0 SEEN /hpf (5-10)
[2018-11-30 01:07] LABS: Color, Urine Yellow (Yellow); Glucose, Dipstick Normal (Normal); Ketone-Dipstick Negative (Negative); Leukocyte Esterase-Dipstick 100 /ul (Negative); Nitrite-Dipstick Negative (Negative); Occult Blood-Urine Negative /ul (Negative); Protein-Dipstick 30 mg/dl (Negative); Specific Gravity, Urine 1.015 (1.002-1.030); Urine Bilirubin Dipstick Negative (Negative); Urine Clarity Sl. Cloudy (Clear); Urine Urobilinogen Normal (Normal)
[2018-11-30 01:21] LABS: Amorphous Sediment 1+; Transitional Epithelial - Ur 0-5 SEEN /hpf (0-5); White Blood Cells 0-5 SEEN /hpf (0-5)
[2018-11-30 01:27] LABS: ALB/GLOB Ratio 0.7 RATIO (0.9-2.4); AST(SGOT) 55 U/L (15-37); Alanine Aminotransfer ALT/SGPT 28 U/L (13-56); Albumin, Serum 2.5 g/dL (3.2-5.0); Alkaline Phosphatase 198 U/L (45-117); Anion Gap 11 (5-15); BUN 127 mg/dL (7-18); BUN/Creat Ratio 37.2 RATIO (10-20); Calcium,Total 7.6 mg/dL (8.5-10.1); Chloride 104 mmol/L (98-107); Creatinine, Serum 3.41 mg/dL (0.55-1.02); EST Glomerular Filtration Rate 14 mL/min (>60); Est Glom Filt Rate - Afr Amer 17 mL/min (>60); Globulin 3.7 g/dL (2.2-4.2); Glucose 102 mg/dL (74-106); Potassium 4.3 mmol/L (3.5-5.1); Protein, Total 6.2 g/dL (6.4-8.2); Sodium Level 135 mmol/L (136-145)
[2018-11-30 02:05] LABS: Magnesium 1.5 mg/dL (1.6-2.6); Phosphorus 5.6 mg/dL (2.5-4.9)
--- NOTE | 2018-11-30 02:23 | PCM.HP.STD ---
Problem List (1) JOSE (acute kidney injury) Status: Acute (2) GI bleed Status: Acute Qualifiers: GI bleed type/associated pathology: anorectal hemorrhage Qualified Code(s): K62.5 - Hemorrhage of anus and rectum History of Present Illness Date of Admission: 11/30/18 Chief Complaint: Malaise. weakness. GI bleed. The patient is a 78 year old F who was just discharged with a non-ST elevation myocardial infarction, where she had a stent placed to her LAD. Additionally during that hospitalization, he likely due to hemorrhoids. Given that she had had stents placed no acute intervention was going to be performed. Patient continued to have blood in the toilet. Patient's described as blood-tinged water but no clots. Patient has continued just feel weak and debilitated during this time. She does endorse that she has dyspnea on exertion. States that she also does have some chest pain with exertion as well. She had a CBC showed a hemoglobin of 10. However her BMP showed a creatinine of 3.4, up from her baseline of 2.99, when she was discharged a week ago on the . Patient has been taking Lasix but does still have lower extremity edema. [] Past Medical History Past Medical History (Chronic Problems): Chronic Problems (Last Reviewed 11/20/18 @ 09:21 by Greyson Bruno MD) Stented coronary artery (Chronic 11/22/18) Successful PCI with PTCA to the proximal 1/2 of small, calcified DIAG#2 with a 1.5 x 8 balloon; 85%-->30%, no dissection. Successful PTCA/ULISES mid LAD with a 2.25 x 12 Promus Synergy; 85%-->0%, no dissection. Successful PTCA/ULISES proximal LAD with a 3.0 x 12 Promus Synergy; 75%-->0%, no dissection per [facility]N @ [facility] (to have elective PCI of proximal PL branch in 4 to 6 weeks). Atherosclerotic heart disease of [place] coronary artery with other forms of angina pectoris (Chronic) PROX LAD: 75 % Stenosis; MID LAD: 85 % Stenosis; DIAGONAL 2: Proximal - Moderate luminal irregularities up to 50%; CIRCUMFLEX ARTERY: is occluded; RIGHT CORONARY ARTERY: Moderate calcification; PROX RCA: Mild luminal irregularities less than 30%; RT PLV: 75 % Stenosis; RT PDA: Mid - 75 % Stenosis (per [facility] Dr. Motta @ [facility] 11/16/2018) History of left heart catheterization (Chronic 11/16/18) PROX LAD: 75 % Stenosis; MID LAD: 85 % Stenosis; DIAGONAL 2: Proximal - Moderate luminal irregularities up to 50%; CIRCUMFLEX ARTERY: is occluded; RIGHT CORONARY ARTERY: Moderate calcification; PROX RCA: Mild luminal irregularities less than 30%; RT PLV: 75 % Stenosis; RT PDA: Mid - 75 % Stenosis (per [facility] Dr. Motta @ [facility] 11/16/2018) Hypertension (Chronic) Medical History: Medical History (Last Reviewed 11/30/18 @ 02:27 by Pete Ramirez DO) Atherosclerotic heart disease of [place] coronary artery with other forms of angina pectoris (Chronic) I25.118 PROX LAD: 75 % Stenosis; MID LAD: 85 % Stenosis; DIAGONAL 2: Proximal - Moderate luminal irregularities up to 50%; CIRCUMFLEX ARTERY: is occluded; RIGHT CORONARY ARTERY: Moderate calcification; PROX RCA: Mild luminal irregularities less than 30%; RT PLV: 75 % Stenosis; RT PDA: Mid - 75 % Stenosis (per [facility] Dr. Motta @ [facility] 11/16/2018) Abdominal pain R10.9 Anxiety F41.9 Cholelithiasis K80.20 Constipation K59.00 Diabetes E11.9 Gout M10.9 History of hysterectomy Z90.710 Nausea & vomiting R11.2 Rheumatoid arthritis M06.9 Hypertension I10 Allergies atorvastatin [From Lipitor] Adverse Reaction (Severe, Verified 11/29/18 23:05) Myalgias codeine Adverse Reaction (Verified 11/29/18 23:05) Hives pain medications Adverse Reaction (Intermediate, Uncoded 11/29/18 23:05) nausea/vomiting Home Medications: Ambulatory Orders Medication Instructions Recorded Atenolol [Tenormin (beta marilyn)] 100 mg PO DAILY 12/05/17 Azathioprine [Imuran] 100 mg PO DAILY@0800 11/15/18 Budesonide [Budesonide EC] 3 mg PO DAILY 11/15/18 Aspirin [Aspirin, Baby] 81 mg PO DAILY@0800 #30 tab.chew 11/23/18 Doxycycline 100 mg PO BID #4 capsule 11/23/18 Furosemide [Lasix] 40 mg PO DAILY #30 tablet 11/23/18 Insulin Glargine [Lantus SoloStar 30 units SC BREAKFAST pen 11/23/18 Pen] Insulin Lispro [Humalog KwikPen] See Protocol SQ ACHS insuln.pen 11/23/18 Isosorbide Mononitrate [Imdur] 60 mg PO DAILY #30 tablet 11/23/18 Nitroglycerin [Nitrostat] 0.4 mg SUBLINGUAL Q5M PRN #10 11/23/18 tablet Pantoprazole Sodium [Protonix] 20 mg PO DAILY #30 tablet 11/23/18 Ranolazine [Ranexa] 500 mg PO BID #60 11/23/18 Sodium Bicarbonate 650 mg PO BID #60 tablet 11/23/18 pravastatin 20 mg tablet 20 mg PO QHS #30 tab 11/24/18 Clopidogrel Bisulfate [Plavix] 75 mg PO DAILY 11/30/18 hydrALAZINE [Apresoline] 25 mg PO BID 11/30/18 Surgical History: Surgical History (Last Reviewed 11/30/18 @ 02:27 by Pete Ramirez DO) Stented coronary artery (Chronic) Onset Date: 11/22/18 Z95.5 Successful PCI with PTCA to the proximal 1/2 of small, calcified DIAG#2 with a 1.5 x 8 balloon; 85%-->30%, no dissection. Successful PTCA/ULISES mid LAD with a 2.25 x 12 Promus Synergy; 85%-->0%, no dissection. Successful PTCA/ULISES proximal LAD with a 3.0 x 12 Promus Synergy; 75%-->0%, no dissection per JA @ [facility] (to have elective PCI of proximal PL branch in 4 to 6 weeks). History of left heart catheterization (Chronic) Onset Date: 11/16/18 Z98.890 PROX LAD: 75 % Stenosis; MID LAD: 85 % Stenosis; DIAGONAL 2: Proximal - Moderate luminal irregularities up to 50%; CIRCUMFLEX ARTERY: is occluded; RIGHT CORONARY ARTERY: Moderate calcification; PROX RCA: Mild luminal irregularities less than 30%; RT PLV: 75 % Stenosis; RT PDA: Mid - 75 % Stenosis (per [facility] Dr. Motta @ [facility] 11/16/2018) Surgical History: cholecystectomy Smoking Status: Never smoker Tobacco Use: Non-smoker Alcohol: None - *Family History Maternal Family History: Family History (Last Reviewed 11/30/18 @ 02:27 by Pete Ramirez DO) Father Heart disease History Items: Heart Disease Paternal Family History: Family History (Last Reviewed 11/30/18 @ 02:27 by Pete Ramirez DO) Father Heart disease History Items: Diabetes, Heart Disease Review of Systems Constitutional: Reports: Malaise, Weakness, Fatigue. Denies: Anorexia, Chills, Fever Eyes: Denies: Blurred vision, Double vision HEENT: Denies: Head Aches, Sinus Congestion, Sinus Drainage Cardiovascular: Reports: Chest Pain, Edema Respiratory: Reports: Shortness of Breath, Shortness of breath upon exertion Gastrointestinal: Reports: Hematochezia. Denies: Abdominal Pain, Constipation, Diarrhea, Dyspepsia Genitourinary: Denies: Dysuria Musculoskeletal: Denies: Joint Pain, Joint Tenderness Skin: Reports: Wounds - Right lower extremity which is been attended to by her .. Denies: Dryness Neurological: Reports: Balance problems. Denies: Blurred vision, Double vision Psychiatric: Denies: Anxiety, Depression Endocrine: Denies: Change in Body Habitus, Heat/ Cold Intolerance Hematologic/ Lymphatic: Reports: Easy Bleeding. Denies: Easy Bruising, Hx of blood clot Comment: A 10 point review of systems were negative except as mentioned in the history of present illness and the other review of systems. VTE Information - Inpt Only VTE Present on Admission: No VTE Mechan Device Prophylaxis: SCD's VTE Pharm Prophylaxis ordered?: No Reason prophylaxis not ordered:: Medical Contraindication Patient Problems: Active and Suspected Problems (Last Reviewed 11/20/18 @ 09:21 by Greyson Bruno MD) JOSE (acute kidney injury) (Acute) GI bleed (Acute) - Physical Exam General: Alert, Cooperative, No apparent distress, - - Listless. Afebrile. HEENT: Atraumatic, Normocephalic Oral: Moist Mucosa, No Gingival or Mucosal Lesions/ Ulcerations Neck: No JVD, No Nodes, Thyroid Normal Size and Texture Lungs: Clear to auscultation, Diminished Cardiovascular: Regular rate, Regular Rhythm, Normal S1, Normal S2, No murmurs Abdomen: Bowel Sounds Present, Soft, Non Tender, Non-Distended, No Hepato-splenomegaly Extremities: No Calf Tenderness, Edema Skin: - - Healing left lower extremity wound with some surrounding erythema without warmth nor induration. This had appear to be some mottling on the bilateral fifth MTP Musculoskeletal: No Tenderness to Palpation of Joints or Extremities, No Muscle Wasting Neurological: Muscle tone normal, Coordination normal Psych/Mental Status: Appropriate, Flat Affect Vital Signs Temp Pulse Resp BP Pulse Ox 36.4 C L 70 16 155/60 H 99 11/29/18 23:02 11/30/18 01:48 11/30/18 01:48 11/30/18 01:48 11/30/18 01:48 Oxygen Delivery Method Room Air Weight: 79.832 kg Body Mass Index (BMI) 32.1 Finger Stick Blood Glucose 159 Laboratory Tests Past 24 Hrs 11/30/18 11/30/18 11/30/18 00:39 00:39 00:39 WBC 10.1 RBC 2.81 L Hgb 10.0 L Hct 30.2 L MCV 107.5 H MCH 35.6 H MCHC 33.1 RDW 15.0 H RDW Differential 56.6 H Plt Count 283 MPV 11.1 Immature Gran % (Auto) 0.500 Neut % (Auto) 60.9 Lymph % (Auto) 29.7 [place] % (Auto) 5.8 Eos % (Auto) 2.4 Baso % (Auto) 0.7 Absolute Neuts (auto) 6.1 Absolute Lymphs (auto) 2.99 Total Counted Not Reportable PT 15.5 H INR 1.3 APTT 32.0 Sodium 135 L Potassium 4.3 Chloride 104 Carbon Dioxide 20.0 L Anion Gap 11 BUN 127 H* Creatinine 3.41 H Estim Creat Clear Calc 11.10 Est GFR (MDRD) Af Amer 17 L Est GFR (MDRD) Non-Af 14 L BUN/Creatinine Ratio 37.2 H Glucose 102 Calcium 7.6 L Phosphorus Magnesium Total Bilirubin 0.70 AST 55 H ALT 28 Alkaline Phosphatase 198 H Troponin I 0.048 H Total Protein 6.2 L Albumin 2.5 L Globulin 3.7 Albumin/Globulin Ratio 0.7 L Urine Color Urine Clarity Urine pH Ur Specific [place] Urine Protein Urine Glucose (UA) Urine Ketones Urine Occult Blood Urine Nitrite Urine Bilirubin Urine Urobilinogen Ur Leukocyte Esterase Urine RBC Urine WBC Ur Squamous Epith Cells Ur Transition Epith Cell Amorphous Sediment Urine Bacteria Urine Mucus Blood Type Antibody Screen 11/30/18 11/30/18 11/30/18 00:39 00:39 00:55 WBC RBC Hgb Hct MCV MCH MCHC RDW RDW Differential Plt Count MPV Immature Gran % (Auto) Neut % (Auto) Lymph % (Auto) [place] % (Auto) Eos % (Auto) Baso % (Auto) Absolute Neuts (auto) Absolute Lymphs (auto) Total Counted PT INR APTT Sodium Potassium Chloride Carbon Dioxide Anion Gap BUN Creatinine Estim Creat Clear Calc Est GFR (MDRD) Af Amer Est GFR (MDRD) Non-Af BUN/Creatinine Ratio Glucose Calcium Phosphorus 5.6 H Magnesium 1.5 L Total Bilirubin AST ALT Alkaline Phosphatase Troponin I Total Protein Albumin Globulin Albumin/Globulin Ratio Urine Color Yellow Urine Clarity Sl. Cloudy Urine pH 5.0 Ur Specific [place] 1.015 Urine Protein 30 H Urine Glucose (UA) Normal Urine Ketones Negative Urine Occult Blood Negative Urine Nitrite Negative Urine Bilirubin Negative Urine Urobilinogen Normal Ur Leukocyte Esterase 100 H Urine RBC 0 SEEN Urine WBC 0-5 SEEN Ur Squamous Epith Cells 0 SEEN Ur Transition Epith Cell 0-5 SEEN Amorphous Sediment 1+ Urine Bacteria 0 SEEN Urine Mucus 0 SEEN Blood Type O POSITIVE Antibody Screen NEGATIVE Clinical Impression(s) from Imaging Studies Chest X-Ray 11/29/18 23:25 IMPRESSION: Decreased lung volumes since previous exam. Mild atelectasis or infiltrate in the lung bases but improved since prior exam. Electronically Signed: Darin Sky MD at 23:48 EST , Service support , EKG reviewed and showed normal sinus rhythm with right bundle branch block. Unchanged from November 22. Assessment/Plan All Active Problems (Last Reviewed 11/20/18 @ 09:21 by Greyson Bruno MD) JOSE (acute kidney injury) (Acute) GI bleed (Acute) GI bleed (Acute) Acute coronary syndrome (Acute) Non-STEMI (non-ST elevated myocardial infarction) (Acute) Hypercholesterolemia (Acute) Congestive heart failure of unknown etiology (Acute) Abnormal EKG (Acute) 1. Acute kidney injury on creatinine up to 3.4, up from baseline of 2.9. We will hold the patient's Lasix and give IV fluids. Nephrology on consultation 2. GI bleed: Due to external hemorrhoids plus dual antiplatelet therapy. Given patient's recent drug-eluting stent, cannot hold her antiplatelet medications at this time. Patient will need to continue to follow-up with general surgery as had been recommended during the last recent hospitalization where she was seen by general surgery at that time. No need for transfusion at this time. Though I would suspect the patient's hemoglobin may drop as she receives IV fluids. 3. Elevated troponin: 0.047, however this is down from when she was admitted most recently. I suspect this is just trending of her recent non-ST elevation myocardial infarction but we will cycle troponins. Her troponins continue to cycle upwards and will bring in cardiology. 4. Failure with reduced ejection fraction: EF of 50% from echocardiogram on November 15. Chest x-ray actually appears to be improved from the . Lasix will be held as mentioned above for the acute kidney injury. We will give the patient a liter of IV fluids but will monitor closely. 5. Diabetes mellitus type 2: Continue with her home regimen. 6. DVT prophylaxis with SCDs. Would hold off on chemical prophylaxis given her hematochezia 7. Right lower extremity wound: Patient has been diagnosed with a cellulitis. On my evaluation patient does have some surrounding erythema but it seems to be more healing air rather than infectious induration. Would hold off on the doxycycline. Given the acute kidney injury at this time and monitor. Will consult wound care for further recommendations but the wound overall appears to be well intact. 8. Advanced care planning: Discussed with the patient and her . And appears that this is the first time that they have been asked this question from their reaction. They do not have any decisions at this time, therefore she will be full CODE STATUS. I did strongly recommend that at a later point whether during this hospitalization or after she is discharged for them to fully discuss their wishes. Code Visit Inpatient E&M: 42372 Init Hosp L3
--- NOTE | 2018-11-30 02:27 | HP.PCM_ITS ---
Problem List (1) JOSE (acute kidney injury) Status: Acute (2) GI bleed Status: Acute Qualifiers: GI bleed type/associated pathology: anorectal hemorrhage Qualified Code(s): K62.5 - Hemorrhage of anus and rectum History of Present Illness Date of Admission: 11/30/18 Chief Complaint: Malaise. weakness. GI bleed. The patient is a 78 year old F who was just discharged with a non-ST elevation myocardial infarction, where she had a stent placed to her LAD. Additionally during that hospitalization, he likely due to hemorrhoids. Given that she had had stents placed no acute intervention was going to be performed. Patient continued to have blood in the toilet. Patient's described as blood- tinged water but no clots. Patient has continued just feel weak and debilitated during this time. She does endorse that she has dyspnea on exertion. States that she also does have some chest pain with exertion as well. She had a CBC showed a hemoglobin of 10. However her BMP showed a creatinine of 3.4, up from her baseline of 2.99, when she was discharged a week ago on the . Patient has been taking Lasix but does still have lower extremity edema. [] Past Medical History Past Medical History (Chronic Problems): Chronic Problems (Last Reviewed 11/20/18 @ 09:21 by Greyson Bruno MD) Stented coronary artery (Chronic 11/22/18) Successful PCI with PTCA to the proximal 1/2 of small, calcified DIAG#2 with a 1.5 x 8 balloon; 85%-->30%, no dissection. Successful PTCA/ULISES mid LAD with a 2.25 x 12 Promus Synergy; 85%-->0%, no dissection. Successful PTCA/ULISES proximal LAD with a 3.0 x 12 Promus Synergy; 75%-->0%, no dissection per DJN @ [facility] (to have elective PCI of proximal PL branch in 4 to 6 weeks). Atherosclerotic heart disease of [place] coronary artery with other forms of angina pectoris (Chronic) PROX LAD: 75 % Stenosis; MID LAD: 85 % Stenosis; DIAGONAL 2: Proximal - Moderate luminal irregularities up to 50%; CIRCUMFLEX ARTERY: is occluded; RIGHT CORONARY ARTERY: Moderate calcification; PROX RCA: Mild luminal irregularities less than 30%; RT PLV: 75 % Stenosis; RT PDA: Mid - 75 % Stenosis (per [facility] Dr. Motta @ [facility] 11/16/2018) History of left heart catheterization (Chronic 11/16/18) PROX LAD: 75 % Stenosis; MID LAD: 85 % Stenosis; DIAGONAL 2: Proximal - Moderate luminal irregularities up to 50%; CIRCUMFLEX ARTERY: is occluded; RIGHT CORONARY ARTERY: Moderate calcification; PROX RCA: Mild luminal irregularities less than 30%; RT PLV: 75 % Stenosis; RT PDA: Mid - 75 % Stenosis (per [facility] Dr. Motta @ [facility] 11/16/2018) Hypertension (Chronic) Medical History: Medical History (Last Reviewed 11/30/18 @ 02:27 by Pete Ramirez DO) Atherosclerotic heart disease of [place] coronary artery with other forms of angina pectoris (Chronic) I25.118 PROX LAD: 75 % Stenosis; MID LAD: 85 % Stenosis; DIAGONAL 2: Proximal - Moderate luminal irregularities up to 50%; CIRCUMFLEX ARTERY: is occluded; RIGHT CORONARY ARTERY: Moderate calcification; PROX RCA: Mild luminal irregularities less than 30%; RT PLV: 75 % Stenosis; RT PDA: Mid - 75 % Stenosis (per [facility] Dr. Motta @ [facility] 11/16/2018) Abdominal pain R10.9 Anxiety F41.9 Cholelithiasis K80.20 Constipation K59.00 Diabetes E11.9 Gout M10.9 History of hysterectomy Z90.710 Nausea & vomiting R11.2 Rheumatoid arthritis M06.9 Hypertension I10 Allergies atorvastatin [From Lipitor] Adverse Reaction (Severe, Verified 11/29/18 23:05) Myalgias codeine Adverse Reaction (Verified 11/29/18 23:05) Hives pain medications Adverse Reaction (Intermediate, Uncoded 11/29/18 23:05) nausea/vomiting Home Medications: Ambulatory Orders Medication Instructions Recorded Atenolol [Tenormin (beta marilyn)] 100 mg PO DAILY 12/05/17 Azathioprine [Imuran] 100 mg PO DAILY@0800 11/15/18 Budesonide [Budesonide EC] 3 mg PO DAILY 11/15/18 Aspirin [Aspirin, Baby] 81 mg PO DAILY@0800 #30 tab.chew 11/23/18 Doxycycline 100 mg PO BID #4 capsule 11/23/18 Furosemide [Lasix] 40 mg PO DAILY #30 tablet 11/23/18 Insulin Glargine [Lantus SoloStar 30 units SC BREAKFAST pen 11/23/18 Pen] Insulin Lispro [Humalog KwikPen] See Protocol SQ ACHS insuln.pen 11/23/18 Isosorbide Mononitrate [Imdur] 60 mg PO DAILY #30 tablet 11/23/18 Nitroglycerin [Nitrostat] 0.4 mg SUBLINGUAL Q5M PRN #10 11/23/18 tablet Pantoprazole Sodium [Protonix] 20 mg PO DAILY #30 tablet 11/23/18 Ranolazine [Ranexa] 500 mg PO BID #60 11/23/18 Sodium Bicarbonate 650 mg PO BID #60 tablet 11/23/18 pravastatin 20 mg tablet 20 mg PO QHS #30 tab 11/24/18 Clopidogrel Bisulfate [Plavix] 75 mg PO DAILY 11/30/18 hydrALAZINE [Apresoline] 25 mg PO BID 11/30/18 Surgical History: Surgical History (Last Reviewed 11/30/18 @ 02:27 by Pete Ramirez DO) Stented coronary artery (Chronic) Onset Date: 11/22/18 Z95.5 Successful PCI with PTCA to the proximal 1/2 of small, calcified DIAG#2 with a 1.5 x 8 balloon; 85%-->30%, no dissection. Successful PTCA/ULISES mid LAD with a 2.25 x 12 Promus Synergy; 85%-->0%, no dissection. Successful PTCA/ULISES proximal LAD with a 3.0 x 12 Promus Synergy; 75%-->0%, no dissection per JA @ [facility] (to have elective PCI of proximal PL branch in 4 to 6 weeks). History of left heart catheterization (Chronic) Onset Date: 11/16/18 Z98.890 PROX LAD: 75 % Stenosis; MID LAD: 85 % Stenosis; DIAGONAL 2: Proximal - Moderate luminal irregularities up to 50%; CIRCUMFLEX ARTERY: is occluded; RIGHT CORONARY ARTERY: Moderate calcification; PROX RCA: Mild luminal irregularities less than 30%; RT PLV: 75 % Stenosis; RT PDA: Mid - 75 % Stenosis (per [facility] Dr. Motta @ [facility] 11/16/2018) Surgical History: cholecystectomy Smoking Status: Never smoker Tobacco Use: Non-smoker Alcohol: None - *Family History Maternal Family History: Family History (Last Reviewed 11/30/18 @ 02:27 by Pete Ramirez DO) Father Heart disease History Items: Heart Disease Paternal Family History: Family History (Last Reviewed 11/30/18 @ 02:27 by Pete Ramirez DO) Father Heart disease History Items: Diabetes, Heart Disease Review of Systems Constitutional: Reports: Malaise, Weakness, Fatigue. Denies: Anorexia, Chills, Fever Eyes: Denies: Blurred vision, Double vision HEENT: Denies: Head Aches, Sinus Congestion, Sinus Drainage Cardiovascular: Reports: Chest Pain, Edema Respiratory: Reports: Shortness of Breath, Shortness of breath upon exertion Gastrointestinal: Reports: Hematochezia. Denies: Abdominal Pain, Constipation, Diarrhea, Dyspepsia Genitourinary: Denies: Dysuria Musculoskeletal: Denies: Joint Pain, Joint Tenderness Skin: Reports: Wounds - Right lower extremity which is been attended to by her .. Denies: Dryness Neurological: Reports: Balance problems. Denies: Blurred vision, Double vision Psychiatric: Denies: Anxiety, Depression Endocrine: Denies: Change in Body Habitus, Heat/ Cold Intolerance Hematologic/ Lymphatic: Reports: Easy Bleeding. Denies: Easy Bruising, Hx of blood clot Comment: A 10 point review of systems were negative except as mentioned in the history of present illness and the other review of systems. VTE Information - Inpt Only VTE Present on Admission: No VTE Mechan Device Prophylaxis: SCD's VTE Pharm Prophylaxis ordered?: No Reason prophylaxis not ordered:: Medical Contraindication Patient Problems: Active and Suspected Problems (Last Reviewed 11/20/18 @ 09:21 by Greyson Bruno MD) JOSE (acute kidney injury) (Acute) GI bleed (Acute) - Physical Exam General: Alert, Cooperative, No apparent distress, - - Listless. Afebrile. HEENT: Atraumatic, Normocephalic Oral: Moist Mucosa, No Gingival or Mucosal Lesions/ Ulcerations Neck: No JVD, No Nodes, Thyroid Normal Size and Texture Lungs: Clear to auscultation, Diminished Cardiovascular: Regular rate, Regular Rhythm, Normal S1, Normal S2, No murmurs Abdomen: Bowel Sounds Present, Soft, Non Tender, Non-Distended, No Hepato- splenomegaly Extremities: No Calf Tenderness, Edema Skin: - - Healing left lower extremity wound with some surrounding erythema without warmth nor induration. This had appear to be some mottling on the bilateral fifth MTP Musculoskeletal: No Tenderness to Palpation of Joints or Extremities, No Muscle Wasting Neurological: Muscle tone normal, Coordination normal Psych/Mental Status: Appropriate, Flat Affect Vital Signs Temp Pulse Resp BP Pulse Ox 36.4 C L 70 16 155/60 H 99 11/29/18 23:02 11/30/18 01:48 11/30/18 01:48 11/30/18 01:48 11/30/18 01:48 Oxygen Delivery Method Room Air Weight: 79.832 kg Body Mass Index (BMI) 32.1 Finger Stick Blood Glucose 159 Laboratory Tests Past 24 Hrs 11/30/18 11/30/18 11/30/18 00:39 00:39 00:39 WBC 10.1 RBC 2.81 L Hgb 10.0 L Hct 30.2 L MCV 107.5 H MCH 35.6 H MCHC 33.1 RDW 15.0 H RDW Differential 56.6 H Plt Count 283 MPV 11.1 Immature Gran % (Auto) 0.500 Neut % (Auto) 60.9 Lymph % (Auto) 29.7 [place] % (Auto) 5.8 Eos % (Auto) 2.4 Baso % (Auto) 0.7 Absolute Neuts (auto) 6.1 Absolute Lymphs (auto) 2.99 Total Counted Not Reportable PT 15.5 H INR 1.3 APTT 32.0 Sodium 135 L Potassium 4.3 Chloride 104 Carbon Dioxide 20.0 L Anion Gap 11 BUN 127 H* Creatinine 3.41 H Estim Creat Clear Calc 11.10 Est GFR (MDRD) Af Amer 17 L Est GFR (MDRD) Non-Af 14 L BUN/Creatinine Ratio 37.2 H Glucose 102 Calcium 7.6 L Phosphorus Magnesium Total Bilirubin 0.70 AST 55 H ALT 28 Alkaline Phosphatase 198 H Troponin I 0.048 H Total Protein 6.2 L Albumin 2.5 L Globulin 3.7 Albumin/Globulin Ratio 0.7 L Urine Color Urine Clarity Urine pH Ur Specific [place] Urine Protein Urine Glucose (UA) Urine Ketones Urine Occult Blood Urine Nitrite Urine Bilirubin Urine Urobilinogen Ur Leukocyte Esterase Urine RBC Urine WBC Ur Squamous Epith Cells Ur Transition Epith Cell Amorphous Sediment Urine Bacteria Urine Mucus Blood Type Antibody Screen 11/30/18 11/30/18 11/30/18 00:39 00:39 00:55 WBC RBC Hgb Hct MCV MCH MCHC RDW RDW Differential Plt Count MPV Immature Gran % (Auto) Neut % (Auto) Lymph % (Auto) [place] % (Auto) Eos % (Auto) Baso % (Auto) Absolute Neuts (auto) Absolute Lymphs (auto) Total Counted PT INR APTT Sodium Potassium Chloride Carbon Dioxide Anion Gap BUN Creatinine Estim Creat Clear Calc Est GFR (MDRD) Af Amer Est GFR (MDRD) Non-Af BUN/Creatinine Ratio Glucose Calcium Phosphorus 5.6 H Magnesium 1.5 L Total Bilirubin AST ALT Alkaline Phosphatase Troponin I Total Protein Albumin Globulin Albumin/Globulin Ratio Urine Color Yellow Urine Clarity Sl. Cloudy Urine pH 5.0 Ur Specific [place] 1.015 Urine Protein 30 H Urine Glucose (UA) Normal Urine Ketones Negative Urine Occult Blood Negative Urine Nitrite Negative Urine Bilirubin Negative Urine Urobilinogen Normal Ur Leukocyte Esterase 100 H Urine RBC 0 SEEN Urine WBC 0-5 SEEN Ur Squamous Epith Cells 0 SEEN Ur Transition Epith Cell 0-5 SEEN Amorphous Sediment 1+ Urine Bacteria 0 SEEN Urine Mucus 0 SEEN Blood Type O POSITIVE Antibody Screen NEGATIVE Clinical Impression(s) from Imaging Studies Chest X-Ray 11/29/18 23:25 IMPRESSION: Decreased lung volumes since previous exam. Mild atelectasis or infiltrate in the lung bases but improved since prior exam. Electronically Signed: Darin Sky MD at 23:48 EST , Service support , EKG reviewed and showed normal sinus rhythm with right bundle branch block. Unchanged from November 22. Assessment/Plan All Active Problems (Last Reviewed 11/20/18 @ 09:21 by Greyson Bruno MD) JOSE (acute kidney injury) (Acute) GI bleed (Acute) GI bleed (Acute) Acute coronary syndrome (Acute) Non-STEMI (non-ST elevated myocardial infarction) (Acute) Hypercholesterolemia (Acute) Congestive heart failure of unknown etiology (Acute) Abnormal EKG (Acute) 1. Acute kidney injury on creatinine up to 3.4, up from baseline of 2.9. We will hold the patient's Lasix and give IV fluids. Nephrology on consultation 2. GI bleed: Due to external hemorrhoids plus dual antiplatelet therapy. Given patient's recent drug-eluting stent, cannot hold her antiplatelet medications at this time. Patient will need to continue to follow-up with general surgery as had been recommended during the last recent hospitalization where she was seen by general surgery at that time. No need for transfusion at this time. Though I would suspect the patient's hemoglobin may drop as she receives IV fluids. 3. Elevated troponin: 0.047, however this is down from when she was admitted most recently. I suspect this is just trending of her recent non-ST elevation myocardial infarction but we will cycle troponins. Her troponins continue to cycle upwards and will bring in cardiology. 4. Failure with reduced ejection fraction: EF of 50% from echocardiogram on November 15. Chest x-ray actually appears to be improved from the . Lasix will be held as mentioned above for the acute kidney injury. We will give the patient a liter of IV fluids but will monitor closely. 5. Diabetes mellitus type 2: Continue with her home regimen. 6. DVT prophylaxis with SCDs. Would hold off on chemical prophylaxis given her hematochezia 7. Right lower extremity wound: Patient has been diagnosed with a cellulitis. On my evaluation patient does have some surrounding erythema but it seems to be more healing air rather than infectious induration. Would hold off on the doxycycline. Given the acute kidney injury at this time and monitor. Will consult wound care for further recommendations but the wound overall appears to be well intact. 8. Advanced care planning: Discussed with the patient and her . And appears that this is the first time that they have been asked this question from their reaction. They do not have any decisions at this time, therefore she will be full CODE STATUS. I did strongly recommend that at a later point whether during this hospitalization or after she is discharged for them to fully discuss their wishes. Code Visit Inpatient E&M: [id number] Init Hosp L3
--- NOTE | 2018-11-30 03:16 | ART_ITS ---
Reason For Study: Mottling lower extremities Procedure A bilateral lower extremity continuous wave Doppler with analog waveform analysis and ankle brachial indexes. Left Segmental Pressures Left brachial= 142mmHg. The left ankle is noncompressible. Left digit = 167 mmHg. Right Segmental Pressures Right brachial= 154mmHg. The right ankle is noncompressible. Right digit = 166 mmHg. Indices The right digital-brachial index is 1.08. The left digital-brachial index is 1.08. Interpretation Summary Unable to calculate bilateral lower extremity ankle brachial indices secondary to non-compressible vessels. Doppler waveforms are triphasic bilaterally suggesting no evidence for critical ischemia. Digital indices are artifically elevated Ordering Physician: Pete Ramirez Referring Physician: Taylor Alvarenga Performed By: Vigrinia Dean RDCS/RVT
[2018-11-30] MEDS: 0.9% Normal Saline 1,000 ML 125 ML IV (03:30)
[2018-11-30] MEDS: Acetaminophen 325 MG Tablet 650 MG PO ×3 (03:32→21:24)
[2018-11-30] MEDS: 0.9% NaCl Peripheral Flush Adult/Peds IV ×3 (03:36→21:15)
[2018-11-30 06:51] LABS: Absolute Lymphocyte Count 3.14 X10^3/ul (0.83-4.51); Absolute Neutrophil Count 4.9 X10^3/uL (2.0-7.7); Basophil# 0.07 X10^3/uL; Basophil% 0.8 % (0-1); Eosinophil# 0.21 X10^3/uL; Eosinophils% 2.4 % (0-5); Hematocrit 25.5 % (37-47); Hemoglobin 8.2 g/dl (12.0-15.0); Lymphocyte # 3.14 X10^3/ul (4.0); Lymphocyte % 35.4 % (19-41); Mean Corp Hgb Conc 32.2 g/gl (32-36); Mean Corpuscular Hgb 34.7 pg (27.0-32.0); Mean Corpuscular Volume 108.1 fL (81-99); Monocyte# 0.48 X10^3/uL; Monocyte% 5.4 % (0-10); Neutrophil # 4.91 X10^3/uL (2.7-7.7); Neutrophil % 55.4 % (47-70); Platelet Count 209 K/mm3 (150-450); RBC Distribution Width CV 14.9 % (11.6-14.6); RBC Distribution Width SD 56.5 fl (35.1-43.9); Red Blood Count 2.36 M/mm3 (4.2-5.4); White Blood Count 8.9 K/mm3 (4.4-11.0)
[2018-11-30 06:52] LABS: POSITIVE COUNT NO; POSITIVE DIFFERENTIAL NO; POSITIVE MORPHOLOGY NO
[2018-11-30 07:00] LABS: Bedside Glucose 72 mg/dL (70-110)
[2018-11-30 07:37] LABS: Anion Gap 13 (5-15); BUN 132 mg/dL (7-18); BUN/Creat Ratio 40.5 RATIO (10-20); Calcium,Total 7.6 mg/dL (8.5-10.1); Chloride 106 mmol/L (98-107); Creatinine, Serum 3.26 mg/dL (0.55-1.02); EST Glomerular Filtration Rate 15 mL/min (>60); Est Glom Filt Rate - Afr Amer 18 mL/min (>60); Estimated Creatinine Clearance 11.61 ml/min; Glucose 75 mg/dL (74-106); Sodium Level 139 mmol/L (136-145)
--- NOTE | 2018-11-30 08:25 | CON.PCM_ITS ---
Consultation - Renal 11/30/18 PCP/ Referring MD: Requesting physician: [] Primary care physician: Taylor Alvarenga MD Reason for Consultation:: acute on CKD stage 4 - History of Present Illness History of Present Illness: The patient is a 78 year old F who was just discharged with PR s/p LAD stent with troponin +, EKG changes, GI bleed on plavix receiving blood transfusion readmitted for BRBPR, progressive weakness since discharge. She was found to have worsening renal function. Creatinine increased to 3.4 on admit improved to 3.2 today with iv hydration. She has shortness of breath, leg edema R>L. Denied chest pain, nausea, vomiting, abdominal pain. Appetite poor. Baseline creatinine in mid 2's. She was scheduled to return for second heart stent when renal function improved. Urine output has been poor on lasix daily. She complains of pain in RLE where she continues to have cellulitis with eschar wound. - Allergies Allergies: Allergies atorvastatin [From Lipitor] Adverse Reaction (Severe, Verified 11/29/18 23:05) Myalgias codeine Adverse Reaction (Verified 11/29/18 23:05) Hives pain medications Adverse Reaction (Intermediate, Uncoded 11/29/18 23:05) nausea/vomiting - Current Medications Current Medications: Current Medications Acetaminophen (Tylenol) 650 mg PO Q6H PRN PRN PRN Reason: Mild Pain (1-3)/Temp > 100.7 F Last Admin: 11/30/18 03:32 Dose: 650 mg Aspirin (Aspirin, Baby) 81 mg PO DAILY@0800 [facility] Atenolol (Tenormin (Beta Elvia)) 100 mg PO DAILY [facility] Azathioprine (Imuran) 100 mg PO DAILY@0800 [facility] Budesonide (Budesonide Ec) 3 mg PO DAILY [facility] Clopidogrel Bisulfate (Plavix) 75 mg PO DAILY [facility] Hydralazine HCl (Apresoline) 25 mg PO BID [facility] Sodium Chloride () 1,000 mls @ 125 mls/hr IV .Q8H [facility] Stop: 11/30/18 11:15 Last Admin: 11/30/18 03:30 Dose: 125 mls/hr Insulin Glargine (Lantus (Bkc)) 30 units SC BREAKFAST [facility] Insulin Human Lispro (Humalog Kwikpen (Bk)) 0 unit SC ACHS [facility]; Protocol Last Admin: 11/30/18 07:40 Dose: Not Given Isosorbide Mononitrate (Imdur) 60 mg PO DAILY [facility] Magnesium Hydroxide (Milk Of Magnesia) 30 ml PO DAILY PRN PRN Reason: Constipation Nitroglycerin (Nitrostat) 0.4 mg SUBLINGUAL Q5M PRN PRN Reason: CARDIAC/CHEST PAIN Nutritional Formula (Lactose Free) (Glucerna Shake) 120 ml PO 4X/DAY [facility] Ondansetron HCl (Zofran) 4 mg IV Q8H PRN PRN PRN Reason: NAUSEA Pantoprazole Sodium (Protonix) 20 mg PO DAILY [facility] Pravastatin Sodium (Pravachol) 20 mg PO QHS [facility] Ranolazine (Ranexa) 500 mg PO BID [facility] Sodium Bicarbonate (Sodium Bicarbonate) 650 mg PO BID [facility] Sodium Chloride () 5 - 15 ml IV UD PRN PRN Reason: SALINE FLUSH Last Admin: 11/30/18 03:36 Dose: 5 ml - Past Medical History Past Medical History (Chronic Problems): Chronic Problems (Last Reviewed 11/30/18 @ 02:27 by Pete Ramirez DO) Stented coronary artery (Chronic 11/22/18) Successful PCI with PTCA to the proximal 1/2 of small, calcified DIAG#2 with a 1.5 x 8 balloon; 85%-->30%, no dissection. Successful PTCA/ULISES mid LAD with a 2.25 x 12 Promus Synergy; 85%-->0%, no dissection. Successful PTCA/ULISES proximal LAD with a 3.0 x 12 Promus Synergy; 75%-->0%, no dissection per JA @ [facility] (to have elective PCI of proximal PL branch in 4 to 6 weeks). Atherosclerotic heart disease of [place] coronary artery with other forms of angina pectoris (Chronic) PROX LAD: 75 % Stenosis; MID LAD: 85 % Stenosis; DIAGONAL 2: Proximal - Moderate luminal irregularities up to 50%; CIRCUMFLEX ARTERY: is occluded; RIGHT CORONARY ARTERY: Moderate calcification; PROX RCA: Mild luminal irregularities less than 30%; RT PLV: 75 % Stenosis; RT PDA: Mid - 75 % Stenosis (per [facility] Dr. Motta @ [facility] 11/16/2018) History of left heart catheterization (Chronic 11/16/18) PROX LAD: 75 % Stenosis; MID LAD: 85 % Stenosis; DIAGONAL 2: Proximal - Moderate luminal irregularities up to 50%; CIRCUMFLEX ARTERY: is occluded; RIGHT CORONARY ARTERY: Moderate calcification; PROX RCA: Mild luminal irregularities less than 30%; RT PLV: 75 % Stenosis; RT PDA: Mid - 75 % Stenosis (per [facility] Dr. Motta @ [facility] 11/16/2018) Hypertension (Chronic) - Past Surgical History Surgical History: cholecystectomy - Social History Marital Status: Smoking Status: Never smoker Alcohol: None - Family History Maternal Family History: Family History (Last Reviewed 11/30/18 @ 02: by Pete Ramirez DO) Father Heart disease History Items: Heart Disease Paternal Family History: Family History (Last Reviewed 11/30/18 @ 02: by Pete Ramirez DO) Father Heart disease History Items: Diabetes, Heart Disease Review of Systems Constitutional: Reports: Anorexia, Weakness, Fatigue. Denies: Chills, Fever Eyes: Denies: Vision Change HEENT: Denies: Head Aches Cardiovascular: Reports: Edema. Denies: Chest Pain, Syncope Respiratory: Reports: Shortness of Breath, Shortness of breath at rest. Denies: Cough Gastrointestinal: Reports: Hematochezia, - - BRBPR. Denies: Abdominal Pain, Diarrhea, Nausea, Vomiting Genitourinary: Reports: - - decreased urine output. Denies: Dysuria Musculoskeletal: Reports: - - leg swelling, rt leg pain from eschar wound Skin: Reports: Wounds - rt leg Neurological: Reports: Balance problems, Incoordination, - - generalized weakness, difficulty walking with walker. Denies: Tremor, Seizures Hematologic/ Lymphatic: Reports: Anemia. Denies: Hx of blood clot Patient Problems: Active and Suspected Problems (Last Reviewed 11/30/18 @ 02:27 by Pete Ramirez DO) JOSE (acute kidney injury) (Acute) GI bleed (Acute) - Physical Exam General: Alert, Oriented x3, Cooperative, - - appears in pain HEENT: PERRLA, EOMI Oral: Moist Mucosa Lungs: Rales Cardiovascular: Regular rate, Murmur Abdomen: Bowel Sounds Present, Soft, Non Tender, Obese Extremities: Edema - BLE L>R Musculoskeletal: Muscle Wasting, - - generalized weakness Neurological: - - no tremor, no asterixis Psych/Mental Status: Normal Affect, Depressed, Alert and oriented to time, place, person, mood and affect Vital Signs Temp Pulse Resp BP Pulse Ox 98.5 F 69 18 148/66 H 99 11/30/18 02:47 11/30/18 02:58 11/30/18 02:47 11/30/18 02:47 11/30/18 02:47 Oxygen Delivery Method Room Air Weight: 80.2 kg Body Mass Index (BMI) 32.3 Finger Stick Blood Glucose 159 Intake and Output for Last 24 Hours 11/28/18 11/29/18 11/30/18 23:59 23:59 23:59 Intake Total 371 / 371 Output Total 200 / 200 Balance 171 / 171 Laboratory Tests Past 24 Hrs 11/30/18 11/30/18 11/30/18 00:39 00:39 00:39 WBC 10.1 RBC 2.81 L Hgb 10.0 L Hct 30.2 L MCV 107.5 H MCH 35.6 H MCHC 33.1 RDW 15.0 H RDW Differential 56.6 H Plt Count 283 MPV 11.1 Immature Gran % (Auto) 0.500 Neut % (Auto) 60.9 Lymph % (Auto) 29.7 [place] % (Auto) 5.8 Eos % (Auto) 2.4 Baso % (Auto) 0.7 Absolute Neuts (auto) 6.1 Absolute Lymphs (auto) 2.99 Total Counted Not Reportable PT 15.5 H INR 1.3 APTT 32.0 Sodium 135 L Potassium 4.3 Chloride 104 Carbon Dioxide 20.0 L Anion Gap 11 BUN 127 H* Creatinine 3.41 H Estim Creat Clear Calc 11.10 Est GFR (MDRD) Af Amer 17 L Est GFR (MDRD) Non-Af 14 L BUN/Creatinine Ratio 37.2 H Glucose 102 Calcium 7.6 L Phosphorus Magnesium Total Bilirubin 0.70 AST 55 H ALT 28 Alkaline Phosphatase 198 H Troponin I 0.048 H Total Protein 6.2 L Albumin 2.5 L Globulin 3.7 Albumin/Globulin Ratio 0.7 L Urine Color Urine Clarity Urine pH Ur Specific Quentin Urine Protein Urine Glucose (UA) Urine Ketones Urine Occult Blood Urine Nitrite Urine Bilirubin Urine Urobilinogen Ur Leukocyte Esterase Urine RBC Urine WBC Ur Squamous Epith Cells Ur Transition Epith Cell Amorphous Sediment Urine Bacteria Urine Mucus Blood Type Antibody Screen 11/30/18 11/30/1819 00:39 00:39 00:55 WBC RBC Hgb Hct MCV MCH MCHC RDW RDW Differential Plt Count MPV Immature Gran % (Auto) Neut % (Auto) Lymph % (Auto) [place] % (Auto) Eos % (Auto) Baso % (Auto) Absolute Neuts (auto) Absolute Lymphs (auto) Total Counted PT INR APTT Sodium Potassium Chloride Carbon Dioxide Anion Gap BUN Creatinine Estim Creat Clear Calc Est GFR (MDRD) Af Amer Est GFR (MDRD) Non-Af BUN/Creatinine Ratio Glucose Calcium Phosphorus 5.6 H Magnesium 1.5 L Total Bilirubin AST ALT Alkaline Phosphatase Troponin I Total Protein Albumin Globulin Albumin/Globulin Ratio Urine Color Yellow Urine Clarity Sl. Cloudy Urine pH 5.0 Ur Specific Quentin 1.015 Urine Protein 30 H Urine Glucose (UA) Normal Urine Ketones Negative Urine Occult Blood Negative Urine Nitrite Negative Urine Bilirubin Negative Urine Urobilinogen Normal Ur Leukocyte Esterase 100 H Urine RBC 0 SEEN Urine WBC 0-5 SEEN Ur Squamous Epith Cells 0 SEEN Ur Transition Epith Cell 0-5 SEEN Amorphous Sediment 1+ Urine Bacteria 0 SEEN Urine Mucus 0 SEEN Blood Type O POSITIVE Antibody Screen NEGATIVE 11/30/18 11/30/18 11/30/18 03:50 06:25 06:25 WBC 8.9 RBC 2.36 L Hgb 8.2 L Hct 25.5 L MCV 108.1 H MCH 34.7 H MCHC 32.2 RDW 14.9 H RDW Differential 56.5 H Plt Count 209 MPV 11.0 Immature Gran % (Auto) 0.600 Neut % (Auto) 55.4 Lymph % (Auto) 35.4 [place] % (Auto) 5.4 Eos % (Auto) 2.4 Baso % (Auto) 0.8 Absolute Neuts (auto) 4.9 Absolute Lymphs (auto) 3.14 Total Counted Not Reportable PT INR APTT Sodium 139 Potassium 4.0 Chloride 106 Carbon Dioxide 20.0 L Anion Gap 13 BUN 132 H* Creatinine 3.26 H Estim Creat Clear Calc 11.61 Est GFR (MDRD) Af Amer 18 L Est GFR (MDRD) Non-Af 15 L BUN/Creatinine Ratio 40.5 H Glucose 75 Calcium 7.6 L Phosphorus Magnesium Total Bilirubin AST ALT Alkaline Phosphatase Troponin I 0.054 H 0.054 H Total Protein Albumin Globulin Albumin/Globulin Ratio Urine Color Urine Clarity Urine pH Ur Specific Quentin Urine Protein Urine Glucose (UA) Urine Ketones Urine Occult Blood Urine Nitrite Urine Bilirubin Urine Urobilinogen Ur Leukocyte Esterase Urine RBC Urine WBC Ur Squamous Epith Cells Ur Transition Epith Cell Amorphous Sediment Urine Bacteria Urine Mucus Blood Type Antibody Screen POC Glucose 11/30/18 06:47 POC Glucose 72 Clinical Impression(s) from Imaging Studies Chest X-Ray 11/29/18 23:25 IMPRESSION: Decreased lung volumes since previous exam. Mild atelectasis or infiltrate in the lung bases but improved since prior exam. Electronically Signed: Darin Sky MD at 23:48 EST , Service support , Assessment/Plan All Active Problems (Last Reviewed 11/30/18 @ 02:27 by Pete Ramirez DO) JOSE (acute kidney injury) (Acute) GI bleed (Acute) GI bleed (Acute) Acute coronary syndrome (Acute) Non-STEMI (non-ST elevated myocardial infarction) (Acute) Hypercholesterolemia (Acute) Congestive heart failure of unknown etiology (Acute) Abnormal EKG (Acute) 1. Acute on CKD stage 4. Creatinine 3.4 improved to 3.2 eGFR 15cc/min today with iv fluids. Baseline creatinine in mid 2's from DMN. Suggest to stop iv fluids for increased leg swelling, SOB. Currently without uremic symptoms but has advanced kidney disease. Discussed possible need to initiate dialysis with [facility]. Will monitor renal fxn, urine output for now. Elevated BUN likely from GI bleed. Will cancel 24h urine urea ordered by ER. 2. s/p stent LAD, ACS last admit. No cp today. 3. DM2 primary service mgmt 4. HTN stable 5. Acute GI bleed on plavix, ASA. Hgb 8.2g. PRBC as needed. 6. Cellulitis RLE, possible calciphylaxis. Consider debridement, bx. 7. Hyperphosphatemia, continue to monitor 8. Metabolic acidosis continue bicarb po
[2018-11-30] MEDS: Aspirin 81 MG TAB.CHEW PO (09:07)
[2018-11-30] MEDS: Clopidogrel Bisulfate 75 MG Tablet PO (09:08)
[2018-11-30] MEDS: hydrALAZINE 25 MG Tablet PO (09:08)
[2018-11-30] MEDS: Budesonide 3 MG CAPSULE.EC PO (09:08)
[2018-11-30] MEDS: Sodium Bicarbonate 650 MG Tablet PO ×2 (09:08→21:26)
[2018-11-30] MEDS: Atenolol 100 MG Tablet PO (09:08)
[2018-11-30] MEDS: Isosorbide Mononitrate 60 MG Tablet PO (09:08)
[2018-11-30] MEDS: Ranolazine 500 MG Tablet PO ×2 (09:08→21:26)
[2018-11-30] MEDS: Pantoprazole Sodium 20 MG Tablet PO (09:08)
[2018-11-30] MEDS: azaTHIOprine 50 MG Tablet 100 MG PO (09:09)
[2018-11-30] MEDS: Glucerna Shake 120 ML LIQUID PO ×2 (09:16→21:27)
--- NOTE | 2018-11-30 11:04 | PCM.CONS.C ---
Problem List (1) Stented coronary artery Status: Chronic Comment: Successful PCI with PTCA to the proximal 1/2 of small, calcified DIAG#2 with a 1.5 x 8 balloon; 85%-->30%, no dissection. Successful PTCA/ULISES mid LAD with a 2.25 x 12 Promus Synergy; 85%-->0%, no dissection. Successful PTCA/ULISES proximal LAD with a 3.0 x 12 Promus Synergy; 75%-->0%, no dissection per JA @ [facility] (to have elective PCI of proximal PL branch in 4 to 6 weeks). (2) GI bleed Status: Acute Qualifiers: GI bleed type/associated pathology: unspecified gastrointestinal hemorrhage type Qualified Code(s): K92.2 - Gastrointestinal hemorrhage, unspecified (3) Atherosclerotic heart disease of [place] coronary artery with other forms of angina pectoris Status: Chronic Comment: PROX LAD: 75 % Stenosis; MID LAD: 85 % Stenosis; DIAGONAL 2: Proximal - Moderate luminal irregularities up to 50%; CIRCUMFLEX ARTERY: is occluded; RIGHT CORONARY ARTERY: Moderate calcification; PROX RCA: Mild luminal irregularities less than 30%; RT PLV: 75 % Stenosis; RT PDA: Mid - 75 % Stenosis (per [facility] Dr. Motta @ [facility] 11/16/2018) (4) History of left heart catheterization Status: Chronic Comment: PROX LAD: 75 % Stenosis; MID LAD: 85 % Stenosis; DIAGONAL 2: Proximal - Moderate luminal irregularities up to 50%; CIRCUMFLEX ARTERY: is occluded; RIGHT CORONARY ARTERY: Moderate calcification; PROX RCA: Mild luminal irregularities less than 30%; RT PLV: 75 % Stenosis; RT PDA: Mid - 75 % Stenosis (per [facility] Dr. Motta @ [facility] 11/16/2018) (5) Hypertension Status: Chronic (6) Hypercholesterolemia Status: Acute Reason for Consult Date of Consultation: 11/30/18 Reason for Consultation: Coronary artery disease, hypertension, hypercholesterolemia, recent stenting, GI bleed, stage IV renal insufficiency History of Present Illness: The patient is a 78 year old F, who recently presented with unstable angina, non-STEMI, mild LV dysfunction with an EF of 50% and moderate pulmonary hypertension with an RVSP of 48 mmHg by echocardiogram. Patient underwent diagnostic coronary angiogram with cautious use of IV contrast given her high stage renal insufficiency. Patient was found to have an occluded circumflex, 2 tandem lesions in her proximal mid LAD, diffuse disease of her diagonal, and a heavily calcified right coronary artery with possible significant proximal posterior lateral branch and proximal PDA stenoses. The patient did not appear to be a good surgical candidate due to the location of her stenoses, as well as her end-stage renal disease. The patient was tried on aspirin and Plavix and unfortunately had a drop in her hemoglobin which required transfusion of PRBCs. Once her hemoglobin was stable and her creatinine was stabilized, she underwent elective limited angioplasty and stenting x2 to the proximal and mid LAD as well as balloon angioplasty only of a very small diagonal branch which was too small for stenting. The patient did well postoperatively and was essentially sent home. At home she was doing okay until the last few days when she began developing weakness, fatigue, shortness of breath and ciara blood red blood per rectum. Patient was readmitted and found to have a hemoglobin initially of 10.0, then dropped to 8.2 and a creatinine of 3.4. Arrangements have been made for the patient to receive a single unit of PRBCs. Her creatinine clearance is 11. According to the patient she denies any exertional chest pain but does complain of worsening lower extremity edema, some shortness of breath, and worsening fatigue. She also complains of generalized body aches. She denies any presyncope or syncope. Initial troponins are 0.05 x 2. EKG shows normal sinus rhythm with baseline right bundle branch block, no acute changes. [] Past Medical History Allergies/Adverse Reactions: Allergies atorvastatin [From Lipitor] Adverse Reaction (Severe, Verified 11/29/18 23:05) Myalgias codeine Adverse Reaction (Verified 11/29/18 23:05) Hives pain medications Adverse Reaction (Intermediate, Uncoded 11/29/18 23:05) nausea/vomiting Home Medications: Ambulatory Orders Medication Instructions Recorded Atenolol [Tenormin (beta marilyn)] 100 mg PO DAILY 12/05/17 Azathioprine [Imuran] 100 mg PO DAILY@0800 11/15/18 Budesonide [Budesonide EC] 3 mg PO DAILY 11/15/18 Aspirin [Aspirin, Baby] 81 mg PO DAILY@0800 #30 tab.chew 11/23/18 Doxycycline 100 mg PO BID #4 capsule 11/23/18 Furosemide [Lasix] 40 mg PO DAILY #30 tablet 11/23/18 Insulin Glargine [Lantus SoloStar 30 units SC BREAKFAST pen 11/23/18 Pen] Insulin Lispro [Humalog KwikPen] See Protocol SQ ACHS insuln.pen 11/23/18 Isosorbide Mononitrate [Imdur] 60 mg PO DAILY #30 tablet 11/23/18 Nitroglycerin [Nitrostat] 0.4 mg SUBLINGUAL Q5M PRN #10 11/23/18 tablet Pantoprazole Sodium [Protonix] 20 mg PO DAILY #30 tablet 11/23/18 Ranolazine [Ranexa] 500 mg PO BID #60 11/23/18 Sodium Bicarbonate 650 mg PO BID #60 tablet 11/23/18 pravastatin 20 mg tablet 20 mg PO QHS #30 tab 11/24/18 Clopidogrel Bisulfate [Plavix] 75 mg PO DAILY 11/30/18 hydrALAZINE [Apresoline] 25 mg PO BID 11/30/18 Past Medical History (Chronic Problems): Chronic Problems (Last Reviewed 11/30/18 @ 02:27 by Pete Ramirez DO) Stented coronary artery (Chronic 11/22/18) Successful PCI with PTCA to the proximal 1/2 of small, calcified DIAG#2 with a 1.5 x 8 balloon; 85%-->30%, no dissection. Successful PTCA/ULISES mid LAD with a 2.25 x 12 Promus Synergy; 85%-->0%, no dissection. Successful PTCA/ULISES proximal LAD with a 3.0 x 12 Promus Synergy; 75%-->0%, no dissection per JA @ [facility] (to have elective PCI of proximal PL branch in 4 to 6 weeks). Atherosclerotic heart disease of blackfeet coronary artery with other forms of angina pectoris (Chronic) PROX LAD: 75 % Stenosis; MID LAD: 85 % Stenosis; DIAGONAL 2: Proximal - Moderate luminal irregularities up to 50%; CIRCUMFLEX ARTERY: is occluded; RIGHT CORONARY ARTERY: Moderate calcification; PROX RCA: Mild luminal irregularities less than 30%; RT PLV: 75 % Stenosis; RT PDA: Mid - 75 % Stenosis (per [facility] Dr. Motta @ [facility] 11/16/2018) History of left heart catheterization (Chronic 11/16/18) PROX LAD: 75 % Stenosis; MID LAD: 85 % Stenosis; DIAGONAL 2: Proximal - Moderate luminal irregularities up to 50%; CIRCUMFLEX ARTERY: is occluded; RIGHT CORONARY ARTERY: Moderate calcification; PROX RCA: Mild luminal irregularities less than 30%; RT PLV: 75 % Stenosis; RT PDA: Mid - 75 % Stenosis (per [facility] Dr. Motta @ [facility] 11/16/2018) Hypertension (Chronic) Surgical History: cholecystectomy - *Family History Maternal Family History: Family History (Last Reviewed 11/30/18 @ 02:27 by Pete Ramirez DO) Father Heart disease History Items: Heart Disease Paternal Family History: Family History (Last Reviewed 11/30/18 @ 02:27 by Pete Ramirez DO) Father Heart disease History Items: Diabetes, Heart Disease Smoking Status: Never smoker Tobacco Use: Non-smoker Alcohol: None Review of Systems - Review of Systems General: Denies: Fever, Night Sweats, Fatigue Cardiovascular: Reports: Shortness of Breath, Shortness of Breath at Rest. Denies: Chest Discomfort, Orthopnea, PND, Peripheral Edema, Palpitations, Lightheadedness, Dizziness, Near Syncope, Syncope Respiratory: Denies: Cough, Sputum Production, Hemoptysis Gastrointestinal: Reports: Hematochezia. Denies: Hematemesis, Melena Genitourinary: Denies: Dysuria, Hematuria Skin: Denies: Rash Subjectve: Patient laying in bed, looks tired, answers questions appropriately. No acute distress. Patient appears pale. Objective: Vital Signs Temp Pulse Resp BP Pulse Ox 97.8 F 71 16 158/70 H 95 11/30/18 08:58 11/30/18 09:08 11/30/18 08:58 11/30/18 08:58 11/30/18 08:58 Oxygen Delivery Method Room Air Weight: 176 lb 12.972 oz Body Mass Index (BMI) 32.3 Finger Stick Blood Glucose 159 Intake and Output for Last 24 Hours 11/28/18 11/29/18 11/30/18 23:59 23:59 23:59 Intake Total 371 / 371 Output Total 200 / 200 Balance 171 / 171 General: Awake, Alert, Oriented x 3 HEENT: PERRL, EOMI, Sclera Non Icteric Neck: Supple, Good ROM, No Lymph Node Enlargement Lungs: Rales - Akash Bases Cardiovascular: Regular Rhythm, Normal S2, No Rubs, No Gallops Murmur Murmur: Grade 2/6, Holosystolic Vascular: No Carotid Bruits, Normal Femoral Pulses, Normal Radial Pulses, Normal Dorsalis Pedal Pulse, Normal Posterior Tibial Pulses Abdomen: Bowel Sounds Present, Soft, Non Tender, No HSM, No Organomegaly Extremities: No Cyanosis, No Clubbing, No edema Neurological: No Focal Motor or Sensory Deficit 11/30/18 00:39: WBC 10.1, RBC 2.81 L, Hgb 10.0 L, Hct 30.2 L, MCV 107.5 H, MCH 35.6 H, MCHC 33.1, RDW 15.0 H, RDW Differential 56.6 H, Plt Count 283, MPV 11.1, Immature Gran % (Auto) 0.500, Neut % (Auto) 60.9, Lymph % (Auto) 29.7, [place] % (Auto) 5.8, Eos % (Auto) 2.4, Baso % (Auto) 0.7, Absolute Neuts (auto) 6.1, Total Counted Not Reportable 11/30/18 00:39: PT 15.5 H, INR 1.3, APTT 32.0 11/30/18 00:39: Sodium 135 L, Potassium 4.3, Chloride 104, Carbon Dioxide 20.0 L, Anion Gap 11, BUN 127 H*, Creatinine 3.41 H, Est GFR (MDRD) Af Amer 17 L, Est GFR (MDRD) Non-Af 14 L, BUN/Creatinine Ratio 37.2 H, Glucose 102, Calcium 7.6 L, Total Bilirubin 0.70, Troponin I 0.048 H 11/30/18 00:39: Phosphorus 5.6 H, Magnesium 1.5 L 11/30/18 00:55: Urine Color Yellow, Urine Clarity Sl. Cloudy, Urine pH 5.0, Ur Specific [place] 1.015, Urine Protein 30 H, Urine Glucose (UA) Normal, Urine Ketones Negative, Urine Occult Blood Negative, Urine Nitrite Negative, Urine Bilirubin Negative, Urine Urobilinogen Normal, Ur Leukocyte Esterase 100 H, Urine RBC 0 SEEN, Urine WBC 0-5 SEEN 11/30/18 03:50: Troponin I 0.054 H 11/30/18 06:25: Sodium 139, Potassium 4.0, Chloride 106, Carbon Dioxide 20.0 L, Anion Gap 13, BUN 132 H*, Creatinine 3.26 H, Est GFR (MDRD) Af Amer 18 L, Est GFR (MDRD) Non-Af 15 L, BUN/Creatinine Ratio 40.5 H, Glucose 75, Calcium 7.6 L, Troponin I 0.054 H 11/30/18 06:25: WBC 8.9, RBC 2.36 L, Hgb 8.2 L, Hct 25.5 L, MCV 108.1 H, MCH 34.7 H, MCHC 32.2, RDW 14.9 H, RDW Differential 56.5 H, Plt Count 209, MPV 11.0, Immature Gran % (Auto) 0.600, Neut % (Auto) 55.4, Lymph % (Auto) 35.4, [place] % (Auto) 5.4, Eos % (Auto) 2.4, Baso % (Auto) 0.8, Absolute Neuts (auto) 4.9, Total Counted Not Reportable Rhythm: EKG: ECHO: Stress Test: Cardiac Cath: PCI: CT Surgery: Holter monitor: EPS: PPM: CXR: Chest CT Scan: Assessment/Plan 1. Coronary artery disease: Patient has been found to have significant multivessel coronary disease which does not appear to be amenable to surgical revascularization superimposed on mild LV dysfunction with an EF of 50% and at least moderate pulmonary hypertension with an RVSP of 40 mmHg on recent echocardiogram. Patient underwent a staged and limited angioplasty and stenting of her proximal and mid LAD with balloon angioplasty only of a small diagonal branch which was too small to stent. She has remaining coronary artery disease downstream from a severely calcified right coronary artery in both her PDA and posterior lateral branches which were going to be left for later once her hemoglobin and creatinine stabilized. The patient now returns with recurrent lower GI bleeding, anemia requiring blood transfusion for a second time, and worsening renal insufficiency. At this point I would not recommend repeat catheterization or additional angioplasty and stenting as she has no acute EKG changes or abnormal troponin releases or arrhythmias which would mandate this in the near term. The patient needs to stay on both baby aspirin and Plavix given her recent drug-eluting stents to her LAD. Would recommend keeping her hemoglobin above at least 9.0 and preferably 10.0 as the patient appears to do better with this. At this point we will discontinue her atenolol as this may be contributing to her overall fatigue, and switch her to Coreg which is processed in the serum, and may have decreased side effects with respect to her high dose Toprol. Patient complained of significant fatigue and tiredness which may be a side effect of this medication. Recommend continuing her nose seen for right now as this has little downside given her diffuse coronary artery disease. Would recommend the patient be strongly considered for hemodialysis in the short-term as well as erythropoietin injection to assist with bone marrow stimulation and RBC generation. Patient has been seen by Dr. Pearson and my understanding is that she may undergo dialysis tomorrow. This would assist with fluid reduction as well. I do not believe that her kidneys were appreciably returned back to normal going forward. Once the patient has been stabilized on dialysis and demonstrates no additional upper or lower GI bleeding, we will then consider proceeding with angioplasty and stenting in several weeks time of her PDA and posterior lateral branches. Would not recommend stress testing at this time given her current condition. 2. Hyperlipidemia: Patient complains of diffuse myalgias and will hold on statin based medications at this time. 3. Discussed with Phil Villa. Will make an attempt to contact Dr. Irma Pearson. Thank you very much for the opportunity to participate in the cardiac care of your patient. Consultation time took place between 1040 and 11:15 AM. Code Visit Inpatient E&M: 71805 Init Hosp L2
[2018-11-30] MEDS: Insulin Lispro 100 UNIT/ML INSULN.PEN SC ×2 (11:14→21:25)
--- NOTE | 2018-11-30 11:16 | CASEMGMT ---
RN APPLE Face to Face with patient for initial transition planning/care coordination assessment. RN CM introduced self and role at [facility]. Patient lying in bed, alert and oriented, at bedside. Patient willing to participate in assessment and is able to answer all questions appropriately. Care providers, pharmacy, and demographics verified. Patient wishes to discharge home, may need HHC or outpatient therapy at discharge. Patient states she has no further needs or concerns at this time. CM to follow for discharge planning needs that may arise. PCP: Taylor Alvarenga Specialists: Kalia staff anesthetist [facility]erred [facility]acy: [facility] Insurance: [employer] Prescription Benefit: Yes LNOK: Living Arrangements: Patient lives with in 1 story home with ramp to enter to the home. Patient independent at home prior to illness. Transportation: Self/ DME/HHC: Patient states that she has shower chair, raised toilet seat, cane, walker, grab bars. Denies home oxygen, bipap, cpap, or nebulizer. inquired about outpatient therapy, CM advised that CM will review therapy notes and assist with HHC or outpatient therapy setup if needed. Disposition Plan: Patient to discharge home with family support and follow-up plans in place. Will monitor for need for therapy at discharge. Sunitha SMITH, RN, CM
[2018-11-30 11:21] LABS: Bedside Glucose 198 mg/dL (70-110)
--- NOTE | 2018-11-30 12:09 | NURSING ---
wound photo: right lateral lower leg
--- NOTE | 2018-11-30 12:10 | PCM.CONS.GEN ---
Problem List (1) JOSE (acute kidney injury) Status: Acute Reason for Consult Date of Consultation: 11/30/18 History of Present Illness: The patient is a 78 year old F for whom I am being asked to see her for tunneled dialysis catheters. The questions by Dr. Irma Pearson and a electronic compromise surgical consult limitations will be returned to her. 78-year-old female. She was discharged from [facility] on November 23. That point she had had a acute non-ST segment elevation MA. She also had rectal bleeding. She underwent cardiac catheterization per Dr. Sam Motta. 60 cc of contrast was utilized. The patient already had a degree of renal insufficiency at that time. Currently I am been asked to place a urgent hemodialysis catheters. Her current laboratory is notable for a BUN of 132 and a creatinine of 3.26.Her estimated creatinine clearance is 11.61. The patient is feeling very poorly. She was feeling very weak at home so after 1 week having been discharged she returned to the hospital. She has also had some further rectal bleeding. Dr. Bruno was consulted on the previous admission and there is a tentative diagnosis of hemorrhoidal bleeding. My understanding is that the patient's preferred not proceeding with any intervention at the previous hospitalization due to the patient's fragile state. The patient is to receive blood transfusion currently. Past Medical History Past Medical History (Chronic Problems): Chronic Problems (Last Reviewed 11/30/18 @ 02:27 by Pete Ramirez DO) Stented coronary artery (Chronic 11/22/18) Successful PCI with PTCA to the proximal 1/2 of small, calcified DIAG#2 with a 1.5 x 8 balloon; 85%-->30%, no dissection. Successful PTCA/ULISES mid LAD with a 2.25 x 12 Promus Synergy; 85%-->0%, no dissection. Successful PTCA/ULISES proximal LAD with a 3.0 x 12 Promus Synergy; 75%-->0%, no dissection per [facility] @ [facility] (to have elective PCI of proximal PL branch in 4 to 6 weeks). Atherosclerotic heart disease of [place] coronary artery with other forms of angina pectoris (Chronic) PROX LAD: 75 % Stenosis; MID LAD: 85 % Stenosis; DIAGONAL 2: Proximal - Moderate luminal irregularities up to 50%; CIRCUMFLEX ARTERY: is occluded; RIGHT CORONARY ARTERY: Moderate calcification; PROX RCA: Mild luminal irregularities less than 30%; RT PLV: 75 % Stenosis; RT PDA: Mid - 75 % Stenosis (per [facility] Dr. Motta @ [facility] 11/16/2018) History of left heart catheterization (Chronic 11/16/18) PROX LAD: 75 % Stenosis; MID LAD: 85 % Stenosis; DIAGONAL 2: Proximal - Moderate luminal irregularities up to 50%; CIRCUMFLEX ARTERY: is occluded; RIGHT CORONARY ARTERY: Moderate calcification; PROX RCA: Mild luminal irregularities less than 30%; RT PLV: 75 % Stenosis; RT PDA: Mid - 75 % Stenosis (per [facility] Dr. Motta @ [facility] 11/16/2018) Hypertension (Chronic) Medical History: Medical History (Last Reviewed 11/30/18 @ 02:27 by Pete Ramirez DO) Atherosclerotic heart disease of [place] coronary artery with other forms of angina pectoris (Chronic) I25.118 PROX LAD: 75 % Stenosis; MID LAD: 85 % Stenosis; DIAGONAL 2: Proximal - Moderate luminal irregularities up to 50%; CIRCUMFLEX ARTERY: is occluded; RIGHT CORONARY ARTERY: Moderate calcification; PROX RCA: Mild luminal irregularities less than 30%; RT PLV: 75 % Stenosis; RT PDA: Mid - 75 % Stenosis (per [facility] Dr. Motta @ [facility] 11/16/2018) Abdominal pain R10.9 Anxiety F41.9 Cholelithiasis K80.20 Constipation K59.00 Diabetes E11.9 Gout M10.9 History of hysterectomy Z90.710 Nausea & vomiting R11.2 Rheumatoid arthritis M06.9 Hypertension I10 Allergies atorvastatin [From Lipitor] Adverse Reaction (Severe, Verified 11/29/18 23:05) Myalgias codeine Adverse Reaction (Verified 11/29/18 23:05) Hives pain medications Adverse Reaction (Intermediate, Uncoded 11/29/18 23:05) nausea/vomiting Home Medications: Ambulatory Orders Medication Instructions Recorded Atenolol [Tenormin (beta marilyn)] 100 mg PO DAILY 12/05/17 Azathioprine [Imuran] 100 mg PO DAILY@0800 11/15/18 Budesonide [Budesonide EC] 3 mg PO DAILY 11/15/18 Aspirin [Aspirin, Baby] 81 mg PO DAILY@0800 #30 tab.chew 11/23/18 Doxycycline 100 mg PO BID #4 capsule 11/23/18 Furosemide [Lasix] 40 mg PO DAILY #30 tablet 11/23/18 Insulin Glargine [Lantus SoloStar 30 units SC BREAKFAST pen 11/23/18 Pen] Insulin Lispro [Humalog KwikPen] See Protocol SQ ACHS insuln.pen 11/23/18 Isosorbide Mononitrate [Imdur] 60 mg PO DAILY #30 tablet 11/23/18 Nitroglycerin [Nitrostat] 0.4 mg SUBLINGUAL Q5M PRN #10 11/23/18 tablet Pantoprazole Sodium [Protonix] 20 mg PO DAILY #30 tablet 11/23/18 Ranolazine [Ranexa] 500 mg PO BID #60 11/23/18 Sodium Bicarbonate 650 mg PO BID #60 tablet 11/23/18 pravastatin 20 mg tablet 20 mg PO QHS #30 tab 11/24/18 Clopidogrel Bisulfate [Plavix] 75 mg PO DAILY 11/30/18 hydrALAZINE [Apresoline] 25 mg PO BID 11/30/18 Surgical History: Surgical History (Last Reviewed 11/30/18 @ 02:27 by Pete Ramirez DO) Stented coronary artery (Chronic) Onset Date: 11/22/18 Z95.5 Successful PCI with PTCA to the proximal 1/2 of small, calcified DIAG#2 with a 1.5 x 8 balloon; 85%-->30%, no dissection. Successful PTCA/ULISES mid LAD with a 2.25 x 12 Promus Synergy; 85%-->0%, no dissection. Successful PTCA/ULISES proximal LAD with a 3.0 x 12 Promus Synergy; 75%-->0%, no dissection per [facility] @ [facility] (to have elective PCI of proximal PL branch in 4 to 6 weeks). History of left heart catheterization (Chronic) Onset Date: 11/16/18 Z98.890 PROX LAD: 75 % Stenosis; MID LAD: 85 % Stenosis; DIAGONAL 2: Proximal - Moderate luminal irregularities up to 50%; CIRCUMFLEX ARTERY: is occluded; RIGHT CORONARY ARTERY: Moderate calcification; PROX RCA: Mild luminal irregularities less than 30%; RT PLV: 75 % Stenosis; RT PDA: Mid - 75 % Stenosis (per [facility] Dr. Motta @ [facility] 11/16/2018) Surgical History: cholecystectomy Smoking Status: Never smoker Tobacco Use: Non-smoker Alcohol: None - *Family History Maternal Family History: Family History (Last Reviewed 11/30/18 @ 02: by Pete Ramirez DO) Father Heart disease History Items: Heart Disease Paternal Family History: Family History (Last Reviewed 11/30/18 @ 02:27 by Pete Ramirez DO) Father Heart disease History Items: Diabetes, Heart Disease Review of Systems Constitutional: Reports: Anorexia HEENT: Denies: Difficulty Swallowing Cardiovascular: Denies: Chest Pain Respiratory: Reports: Shortness of Breath Gastrointestinal: Denies: Abdominal Pain Skin: Reports: - - Right lower extremity leg wound Neurological: Reports: Balance problems Patient Problems: Active and Suspected Problems (Last Reviewed 11/30/18 @ 02: by Pete Ramirez DO) JOSE (acute kidney injury) (Acute) GI bleed (Acute) - Physical Exam General: Alert, - - During HEENT: Atraumatic Oral: Moist Mucosa Neck: Supple, Negative Carotid Bruits Lungs: Clear to auscultation, - - Notably diminished breath sounds in the bases Cardiovascular: Regular rate, Regular Rhythm Abdomen: Soft, Non Tender Extremities: - - Dressing right leg. Lymphatic: - - Upper extremity edema noted Vital Signs Temp Pulse Resp BP Pulse Ox 97.8 F 71 16 158/70 H 95 11/30/18 08:58 11/30/18 09:08 11/30/18 08:58 11/30/18 08:58 11/30/18 08:58 Oxygen Delivery Method Room Air Weight: 176 lb 5.917 oz Body Mass Index (BMI) 32.3 Finger Stick Blood Glucose 159 Intake and Output for Last 24 Hours 11/28/18 11/29/18 11/30/18 23:59 23:59 23:59 Intake Total 947 / 947 Output Total 600 / 600 Balance 347 / 347 Laboratory Tests Past 24 Hrs 11/30/18 11/30/18 11/30/18 00:39 00:39 00:39 WBC 10.1 RBC 2.81 L Hgb 10.0 L Hct 30.2 L MCV 107.5 H MCH 35.6 H MCHC 33.1 RDW 15.0 H RDW Differential 56.6 H Plt Count 283 MPV 11.1 Immature Gran % (Auto) 0.500 Neut % (Auto) 60.9 Lymph % (Auto) 29.7 [place] % (Auto) 5.8 Eos % (Auto) 2.4 Baso % (Auto) 0.7 Absolute Neuts (auto) 6.1 Absolute Lymphs (auto) 2.99 Total Counted Not Reportable PT 15.5 H INR 1.3 APTT 32.0 Sodium 135 L Potassium 4.3 Chloride 104 Carbon Dioxide 20.0 L Anion Gap 11 BUN 127 H* Creatinine 3.41 H Estim Creat Clear Calc 11.10 Est GFR (MDRD) Af Amer 17 L Est GFR (MDRD) Non-Af 14 L BUN/Creatinine Ratio 37.2 H Glucose 102 Calcium 7.6 L Phosphorus Magnesium Total Bilirubin 0.70 AST 55 H ALT 28 Alkaline Phosphatase 198 H Troponin I 0.048 H Total Protein 6.2 L Albumin 2.5 L Globulin 3.7 Albumin/Globulin Ratio 0.7 L Urine Color Urine Clarity Urine pH Ur Specific [place] Urine Protein Urine Glucose (UA) Urine Ketones Urine Occult Blood Urine Nitrite Urine Bilirubin Urine Urobilinogen Ur Leukocyte Esterase Urine RBC Urine WBC Ur Squamous Epith Cells Ur Transition Epith Cell Amorphous Sediment Urine Bacteria Urine Mucus Blood Type Antibody Screen Crossmatch 11/30/18 11/30/18 11/30/18 00:39 00:39 00:39 WBC RBC Hgb Hct MCV MCH MCHC RDW RDW Differential Plt Count MPV Immature Gran % (Auto) Neut % (Auto) Lymph % (Auto) [place] % (Auto) Eos % (Auto) Baso % (Auto) Absolute Neuts (auto) Absolute Lymphs (auto) Total Counted PT INR APTT Sodium Potassium Chloride Carbon Dioxide Anion Gap BUN Creatinine Estim Creat Clear Calc Est GFR (MDRD) Af Amer Est GFR (MDRD) Non-Af BUN/Creatinine Ratio Glucose Calcium Phosphorus 5.6 H Magnesium 1.5 L Total Bilirubin AST ALT Alkaline Phosphatase Troponin I Total Protein Albumin Globulin Albumin/Globulin Ratio Urine Color Urine Clarity Urine pH Ur Specific [place] Urine Protein Urine Glucose (UA) Urine Ketones Urine Occult Blood Urine Nitrite Urine Bilirubin Urine Urobilinogen Ur Leukocyte Esterase Urine RBC Urine WBC Ur Squamous Epith Cells Ur Transition Epith Cell Amorphous Sediment Urine Bacteria Urine Mucus Blood Type O POSITIVE Antibody Screen NEGATIVE Crossmatch See Detail 11/30/18 11/30/18 11/30/18 00:55 03:50 06:25 WBC RBC Hgb Hct MCV MCH MCHC RDW RDW Differential Plt Count MPV Immature Gran % (Auto) Neut % (Auto) Lymph % (Auto) [place] % (Auto) Eos % (Auto) Baso % (Auto) Absolute Neuts (auto) Absolute Lymphs (auto) Total Counted PT INR APTT Sodium 139 Potassium 4.0 Chloride 106 Carbon Dioxide 20.0 L Anion Gap 13 BUN 132 H* Creatinine 3.26 H Estim Creat Clear Calc 11.61 Est GFR (MDRD) Af Amer 18 L Est GFR (MDRD) Non-Af 15 L BUN/Creatinine Ratio 40.5 H Glucose 75 Calcium 7.6 L Phosphorus Magnesium Total Bilirubin AST ALT Alkaline Phosphatase Troponin I 0.054 H 0.054 H Total Protein Albumin Globulin Albumin/Globulin Ratio Urine Color Yellow Urine Clarity Sl. Cloudy Urine pH 5.0 Ur Specific [place] 1.015 Urine Protein 30 H Urine Glucose (UA) Normal Urine Ketones Negative Urine Occult Blood Negative Urine Nitrite Negative Urine Bilirubin Negative Urine Urobilinogen Normal Ur Leukocyte Esterase 100 H Urine RBC 0 SEEN Urine WBC 0-5 SEEN Ur Squamous Epith Cells 0 SEEN Ur Transition Epith Cell 0-5 SEEN Amorphous Sediment 1+ Urine Bacteria 0 SEEN Urine Mucus 0 SEEN Blood Type Antibody Screen Crossmatch 11/30/18 06:25 WBC 8.9 RBC 2.36 L Hgb 8.2 L Hct 25.5 L MCV 108.1 H MCH 34.7 H MCHC 32.2 RDW 14.9 H RDW Differential 56.5 H Plt Count 209 MPV 11.0 Immature Gran % (Auto) 0.600 Neut % (Auto) 55.4 Lymph % (Auto) 35.4 [place] % (Auto) 5.4 Eos % (Auto) 2.4 Baso % (Auto) 0.8 Absolute Neuts (auto) 4.9 Absolute Lymphs (auto) 3.14 Total Counted Not Reportable PT INR APTT Sodium Potassium Chloride Carbon Dioxide Anion Gap BUN Creatinine Estim Creat Clear Calc Est GFR (MDRD) Af Amer Est GFR (MDRD) Non-Af BUN/Creatinine Ratio Glucose Calcium Phosphorus Magnesium Total Bilirubin AST ALT Alkaline Phosphatase Troponin I Total Protein Albumin Globulin Albumin/Globulin Ratio Urine Color Urine Clarity Urine pH Ur Specific [place] Urine Protein Urine Glucose (UA) Urine Ketones Urine Occult Blood Urine Nitrite Urine Bilirubin Urine Urobilinogen Ur Leukocyte Esterase Urine RBC Urine WBC Ur Squamous Epith Cells Ur Transition Epith Cell Amorphous Sediment Urine Bacteria Urine Mucus Blood Type Antibody Screen Crossmatch POC Glucose 11/30/18 11/30/18 11:07 06:47 POC Glucose 198 H 72 Assessment/Plan All Active Problems (Last Reviewed 11/30/18 @ 02:27 by Pete Ramirez DO) JOSE (acute kidney injury) (Acute) GI bleed (Acute) GI bleed (Acute) Acute coronary syndrome (Acute) Non-STEMI (non-ST elevated myocardial infarction) (Acute) Hypercholesterolemia (Acute) Congestive heart failure of unknown etiology (Acute) Abnormal EKG (Acute) 78-year-old female who was felt to be in need of urgent hemodialysis. I proposed for her a tunneled right internal jugular dialysis catheters and I have discussed the technique, benefits, risks and alternatives. She was given breakfast today having eaten regular food at approximately 9:00 this morning. This will delay surgical intervention. Request has been made for catheters today so she will be scheduled after hours today. The patient is accompanied by her today. They both have had an opportunity to ask and have questions answered. Appreciate the opportunity of assisting with her surgical care Darinel Lawrence M.D., F.A.C.S.
--- NOTE | 2018-11-30 12:14 | CON.PCM_ITS ---
Problem List (1) JOSE (acute kidney injury) Status: Acute Reason for Consult Date of Consultation: 11/30/18 History of Present Illness: The patient is a 78 year old F for whom I am being asked to see her for tunneled dialysis catheters. The questions by Dr. Irma Pearson and a electronic compromise surgical consult limitations will be returned to her. 78-year-old female. She was discharged from [facility] on November 23. That point she had had a acute non-ST segment elevation PR. She also had rectal bleeding. She underwent cardiac catheterization per Dr. Sam Motta. 60 cc of contrast was utilized. The patient already had a degree of renal insufficiency at that time. Currently I am been asked to place a urgent hemodialysis catheters. Her current laboratory is notable for a BUN of 132 and a creatinine of 3.26.Her estimated creatinine clearance is 11.61. The patient is feeling very poorly. She was feeling very weak at home so after 1 week having been discharged she returned to the hospital. She has also had some further rectal bleeding. Dr. Bruno was consulted on the previous admission and there is a tentative diagnosis of hemorrhoidal bleeding. My understanding is that the patient's preferred not proceeding with any intervention at the previous hospitalization due to the patient's fragile state. The patient is to receive blood transfusion currently. Past Medical History Past Medical History (Chronic Problems): Chronic Problems (Last Reviewed 11/30/18 @ 02:27 by Pete Ramirez DO) Stented coronary artery (Chronic 11/22/18) Successful PCI with PTCA to the proximal 1/2 of small, calcified DIAG#2 with a 1.5 x 8 balloon; 85%-->30%, no dissection. Successful PTCA/ULISES mid LAD with a 2.25 x 12 Promus Synergy; 85%-->0%, no dissection. Successful PTCA/ULISES proximal LAD with a 3.0 x 12 Promus Synergy; 75%-->0%, no dissection per [facility] @ [facility] (to have elective PCI of proximal PL branch in 4 to 6 weeks). Atherosclerotic heart disease of [place] coronary artery with other forms of angina pectoris (Chronic) PROX LAD: 75 % Stenosis; MID LAD: 85 % Stenosis; DIAGONAL 2: Proximal - Moderate luminal irregularities up to 50%; CIRCUMFLEX ARTERY: is occluded; RIGHT CORONARY ARTERY: Moderate calcification; PROX RCA: Mild luminal irregularities less than 30%; RT PLV: 75 % Stenosis; RT PDA: Mid - 75 % Stenosis (per [facility] Dr. Motta @ [facility] 11/16/2018) History of left heart catheterization (Chronic 11/16/18) PROX LAD: 75 % Stenosis; MID LAD: 85 % Stenosis; DIAGONAL 2: Proximal - Moderate luminal irregularities up to 50%; CIRCUMFLEX ARTERY: is occluded; RIGHT CORONARY ARTERY: Moderate calcification; PROX RCA: Mild luminal irregularities less than 30%; RT PLV: 75 % Stenosis; RT PDA: Mid - 75 % Stenosis (per [facility] Dr. Motta @ [facility] 11/16/2018) Hypertension (Chronic) Medical History: Medical History (Last Reviewed 11/30/18 @ 02:27 by Pete Ramirez DO) Atherosclerotic heart disease of [place] coronary artery with other forms of angina pectoris (Chronic) I25.118 PROX LAD: 75 % Stenosis; MID LAD: 85 % Stenosis; DIAGONAL 2: Proximal - Moderate luminal irregularities up to 50%; CIRCUMFLEX ARTERY: is occluded; RIGHT CORONARY ARTERY: Moderate calcification; PROX RCA: Mild luminal irregularities less than 30%; RT PLV: 75 % Stenosis; RT PDA: Mid - 75 % Stenosis (per [facility] Dr. Motta @ [facility] 11/16/2018) Abdominal pain R10.9 Anxiety F41.9 Cholelithiasis K80.20 Constipation K59.00 Diabetes E11.9 Gout M10.9 History of hysterectomy Z90.710 Nausea & vomiting R11.2 Rheumatoid arthritis M06.9 Hypertension I10 Allergies atorvastatin [From Lipitor] Adverse Reaction (Severe, Verified 11/29/18 23:05) Myalgias codeine Adverse Reaction (Verified 11/29/18 23:05) Hives pain medications Adverse Reaction (Intermediate, Uncoded 11/29/18 23:05) nausea/vomiting Home Medications: Ambulatory Orders Medication Instructions Recorded Atenolol [Tenormin (beta marilyn)] 100 mg PO DAILY 12/05/17 Azathioprine [Imuran] 100 mg PO DAILY@0800 11/15/18 Budesonide [Budesonide EC] 3 mg PO DAILY 11/15/18 Aspirin [Aspirin, Baby] 81 mg PO DAILY@0800 #30 tab.chew 11/23/18 Doxycycline 100 mg PO BID #4 capsule 11/23/18 Furosemide [Lasix] 40 mg PO DAILY #30 tablet 11/23/18 Insulin Glargine [Lantus SoloStar 30 units SC BREAKFAST pen 11/23/18 Pen] Insulin Lispro [Humalog KwikPen] See Protocol SQ ACHS insuln.pen 11/23/18 Isosorbide Mononitrate [Imdur] 60 mg PO DAILY #30 tablet 11/23/18 Nitroglycerin [Nitrostat] 0.4 mg SUBLINGUAL Q5M PRN #10 11/23/18 tablet Pantoprazole Sodium [Protonix] 20 mg PO DAILY #30 tablet 11/23/18 Ranolazine [Ranexa] 500 mg PO BID #60 11/23/18 Sodium Bicarbonate 650 mg PO BID #60 tablet 11/23/18 pravastatin 20 mg tablet 20 mg PO QHS #30 tab 11/24/18 Clopidogrel Bisulfate [Plavix] 75 mg PO DAILY 11/30/18 hydrALAZINE [Apresoline] 25 mg PO BID 11/30/18 Surgical History: Surgical History (Last Reviewed 11/30/18 @ 02:27 by Pete Ramirez DO) Stented coronary artery (Chronic) Onset Date: 11/22/18 Z95.5 Successful PCI with PTCA to the proximal 1/2 of small, calcified DIAG#2 with a 1.5 x 8 balloon; 85%-->30%, no dissection. Successful PTCA/ULISES mid LAD with a 2.25 x 12 Promus Synergy; 85%-->0%, no dissection. Successful PTCA/ULISES proximal LAD with a 3.0 x 12 Promus Synergy; 75%-->0%, no dissection per JA @ [facility] (to have elective PCI of proximal PL branch in 4 to 6 weeks). History of left heart catheterization (Chronic) Onset Date: 11/16/18 Z98.890 PROX LAD: 75 % Stenosis; MID LAD: 85 % Stenosis; DIAGONAL 2: Proximal - Moderate luminal irregularities up to 50%; CIRCUMFLEX ARTERY: is occluded; RIGHT CORONARY ARTERY: Moderate calcification; PROX RCA: Mild luminal irregularities less than 30%; RT PLV: 75 % Stenosis; RT PDA: Mid - 75 % Stenosis (per [facility] Dr. Motta @ [facility] 11/16/2018) Surgical History: cholecystectomy Smoking Status: Never smoker Tobacco Use: Non-smoker Alcohol: None - *Family History Maternal Family History: Family History (Last Reviewed 11/30/18 @ 02: by Pete Ramirez DO) Father Heart disease History Items: Heart Disease Paternal Family History: Family History (Last Reviewed 11/30/18 @ 02:27 by Pete Ramirez DO) Father Heart disease History Items: Diabetes, Heart Disease Review of Systems Constitutional: Reports: Anorexia HEENT: Denies: Difficulty Swallowing Cardiovascular: Denies: Chest Pain Respiratory: Reports: Shortness of Breath Gastrointestinal: Denies: Abdominal Pain Skin: Reports: - - Right lower extremity leg wound Neurological: Reports: Balance problems Patient Problems: Active and Suspected Problems (Last Reviewed 11/30/18 @ 02: by Pete Ramirez DO) JOSE (acute kidney injury) (Acute) GI bleed (Acute) - Physical Exam General: Alert, - - During HEENT: Atraumatic Oral: Moist Mucosa Neck: Supple, Negative Carotid Bruits Lungs: Clear to auscultation, - - Notably diminished breath sounds in the bases Cardiovascular: Regular rate, Regular Rhythm Abdomen: Soft, Non Tender Extremities: - - Dressing right leg. Lymphatic: - - Upper extremity edema noted Vital Signs Temp Pulse Resp BP Pulse Ox 97.8 F 71 16 158/70 H 95 11/30/18 08:58 11/30/18 09:08 11/30/18 08:58 11/30/18 08:58 11/30/18 08:58 Oxygen Delivery Method Room Air Weight: 176 lb 5.917 oz Body Mass Index (BMI) 32.3 Finger Stick Blood Glucose 159 Intake and Output for Last 24 Hours 11/28/18 11/29/18 11/30/18 23:59 23:59 23:59 Intake Total 947 / 947 Output Total 600 / 600 Balance 347 / 347 Laboratory Tests Past 24 Hrs 11/30/18 11/30/18 11/30/18 00:39 00:39 00:39 WBC 10.1 RBC 2.81 L Hgb 10.0 L Hct 30.2 L MCV 107.5 H MCH 35.6 H MCHC 33.1 RDW 15.0 H RDW Differential 56.6 H Plt Count 283 MPV 11.1 Immature Gran % (Auto) 0.500 Neut % (Auto) 60.9 Lymph % (Auto) 29.7 [place] % (Auto) 5.8 Eos % (Auto) 2.4 Baso % (Auto) 0.7 Absolute Neuts (auto) 6.1 Absolute Lymphs (auto) 2.99 Total Counted Not Reportable PT 15.5 H INR 1.3 APTT 32.0 Sodium 135 L Potassium 4.3 Chloride 104 Carbon Dioxide 20.0 L Anion Gap 11 BUN 127 H* Creatinine 3.41 H Estim Creat Clear Calc 11.10 Est GFR (MDRD) Af Amer 17 L Est GFR (MDRD) Non-Af 14 L BUN/Creatinine Ratio 37.2 H Glucose 102 Calcium 7.6 L Phosphorus Magnesium Total Bilirubin 0.70 AST 55 H ALT 28 Alkaline Phosphatase 198 H Troponin I 0.048 H Total Protein 6.2 L Albumin 2.5 L Globulin 3.7 Albumin/Globulin Ratio 0.7 L Urine Color Urine Clarity Urine pH Ur Specific [place] Urine Protein Urine Glucose (UA) Urine Ketones Urine Occult Blood Urine Nitrite Urine Bilirubin Urine Urobilinogen Ur Leukocyte Esterase Urine RBC Urine WBC Ur Squamous Epith Cells Ur Transition Epith Cell Amorphous Sediment Urine Bacteria Urine Mucus Blood Type Antibody Screen Crossmatch 11/30/18 11/30/18 11/30/18 00:39 00:39 00:39 WBC RBC Hgb Hct MCV MCH MCHC RDW RDW Differential Plt Count MPV Immature Gran % (Auto) Neut % (Auto) Lymph % (Auto) [place] % (Auto) Eos % (Auto) Baso % (Auto) Absolute Neuts (auto) Absolute Lymphs (auto) Total Counted PT INR APTT Sodium Potassium Chloride Carbon Dioxide Anion Gap BUN Creatinine Estim Creat Clear Calc Est GFR (MDRD) Af Amer Est GFR (MDRD) Non-Af BUN/Creatinine Ratio Glucose Calcium Phosphorus 5.6 H Magnesium 1.5 L Total Bilirubin AST ALT Alkaline Phosphatase Troponin I Total Protein Albumin Globulin Albumin/Globulin Ratio Urine Color Urine Clarity Urine pH Ur Specific [place] Urine Protein Urine Glucose (UA) Urine Ketones Urine Occult Blood Urine Nitrite Urine Bilirubin Urine Urobilinogen Ur Leukocyte Esterase Urine RBC Urine WBC Ur Squamous Epith Cells Ur Transition Epith Cell Amorphous Sediment Urine Bacteria Urine Mucus Blood Type O POSITIVE Antibody Screen NEGATIVE Crossmatch See Detail 11/30/18 11/30/18 11/30/18 00:55 03:50 06:25 WBC RBC Hgb Hct MCV MCH MCHC RDW RDW Differential Plt Count MPV Immature Gran % (Auto) Neut % (Auto) Lymph % (Auto) [place] % (Auto) Eos % (Auto) Baso % (Auto) Absolute Neuts (auto) Absolute Lymphs (auto) Total Counted PT INR APTT Sodium 139 Potassium 4.0 Chloride 106 Carbon Dioxide 20.0 L Anion Gap 13 BUN 132 H* Creatinine 3.26 H Estim Creat Clear Calc 11.61 Est GFR (MDRD) Af Amer 18 L Est GFR (MDRD) Non-Af 15 L BUN/Creatinine Ratio 40.5 H Glucose 75 Calcium 7.6 L Phosphorus Magnesium Total Bilirubin AST ALT Alkaline Phosphatase Troponin I 0.054 H 0.054 H Total Protein Albumin Globulin Albumin/Globulin Ratio Urine Color Yellow Urine Clarity Sl. Cloudy Urine pH 5.0 Ur Specific [place] 1.015 Urine Protein 30 H Urine Glucose (UA) Normal Urine Ketones Negative Urine Occult Blood Negative Urine Nitrite Negative Urine Bilirubin Negative Urine Urobilinogen Normal Ur Leukocyte Esterase 100 H Urine RBC 0 SEEN Urine WBC 0-5 SEEN Ur Squamous Epith Cells 0 SEEN Ur Transition Epith Cell 0-5 SEEN Amorphous Sediment 1+ Urine Bacteria 0 SEEN Urine Mucus 0 SEEN Blood Type Antibody Screen Crossmatch 11/30/18 06:25 WBC 8.9 RBC 2.36 L Hgb 8.2 L Hct 25.5 L MCV 108.1 H MCH 34.7 H MCHC 32.2 RDW 14.9 H RDW Differential 56.5 H Plt Count 209 MPV 11.0 Immature Gran % (Auto) 0.600 Neut % (Auto) 55.4 Lymph % (Auto) 35.4 [place] % (Auto) 5.4 Eos % (Auto) 2.4 Baso % (Auto) 0.8 Absolute Neuts (auto) 4.9 Absolute Lymphs (auto) 3.14 Total Counted Not Reportable PT INR APTT Sodium Potassium Chloride Carbon Dioxide Anion Gap BUN Creatinine Estim Creat Clear Calc Est GFR (MDRD) Af Amer Est GFR (MDRD) Non-Af BUN/Creatinine Ratio Glucose Calcium Phosphorus Magnesium Total Bilirubin AST ALT Alkaline Phosphatase Troponin I Total Protein Albumin Globulin Albumin/Globulin Ratio Urine Color Urine Clarity Urine pH Ur Specific [place] Urine Protein Urine Glucose (UA) Urine Ketones Urine Occult Blood Urine Nitrite Urine Bilirubin Urine Urobilinogen Ur Leukocyte Esterase Urine RBC Urine WBC Ur Squamous Epith Cells Ur Transition Epith Cell Amorphous Sediment Urine Bacteria Urine Mucus Blood Type Antibody Screen Crossmatch POC Glucose 11/30/18 11/30/18 11:07 06:47 POC Glucose 198 H 72 Assessment/Plan All Active Problems (Last Reviewed 11/30/18 @ 02:27 by Pete Ramirez DO) JOSE (acute kidney injury) (Acute) GI bleed (Acute) GI bleed (Acute) Acute coronary syndrome (Acute) Non-STEMI (non-ST elevated myocardial infarction) (Acute) Hypercholesterolemia (Acute) Congestive heart failure of unknown etiology (Acute) Abnormal EKG (Acute) 78-year-old female who was felt to be in need of urgent hemodialysis. I proposed for her a tunneled right internal jugular dialysis catheters and I have discussed the technique, benefits, risks and alternatives. She was given breakfast today having eaten regular food at approximately 9:00 this morning. This will delay surgical intervention. Request has been made for catheters today so she will be scheduled after hours today. The patient is accompanied by her today. They both have had an opportunity to ask and have questions answered. Appreciate the opportunity of assisting with her surgical care Darinel Lawrence M.D., F.A.C.S.
--- NOTE | 2018-11-30 13:34 | CASEMGMT ---
Per Nataliya MAC, pt will be starting and permanently on dialysis per Dr. Pearson. HD referral faxed to [facility] at this time with pt preference of M,W,F dialysis at the [facility]. Pt's answered most questions for pt at this time. Pt kept eyes closed while this RN CM in room but was awake and answered questions at times but deferred to at this time. Pt supposed to have temp dialysis cath placed tomorrow and possible 1st dialysis tomorrow as well. Dialysis flow sheet and vasc access op report to be faxed when obtained. SStalex RN CM
--- NOTE | 2018-11-30 15:03 | PCM.PROGNOTE ---
<Phil Villa - Last Filed: 11/30/18 15:03> Patient Problems: Active and Suspected Problems (Last Reviewed 11/30/18 @ 02:27 by Pete Ramirez DO) JOSE (acute kidney injury) (Acute) GI bleed (Acute) Subjective: Patient continues to make very little urine. As of this morning she had not had any further bowel movement or noticed any further bleeding. The rectal bleeding was described as bright red drops on the side of the toilet, some pinkness to the water in the toilet. She has a history of hemorrhoids. She has no fevers or chills. No abdominal pain. No shortness of breath at this time. She complains of feeling very weak, and she also does complain of some squeezing chest pain. At this time no lightheadedness or dizziness. No palpitations. - Physical Exam General: Alert, Oriented x3, Cooperative HEENT: Atraumatic, PERRLA, EOMI, Normocephalic Neck: Supple, No JVD, Negative Carotid Bruits Lungs: Clear to auscultation, Normal air movement Cardiovascular: Regular rate, No murmurs Abdomen: Bowel Sounds Present, Soft, Non Tender Extremities: No edema, Capillary Refill Less than 3 Seconds Skin: No rashes, No breakdown Musculoskeletal: No Tenderness to Palpation of Joints or Extremities Neurological: Cranial nerves II-XII grossly intact Psych/Mental Status: Normal Affect, Appropriate Vital Signs Temp Pulse Resp BP Pulse Ox 97.8 F 71 16 158/70 H 95 11/30/18 08:58 11/30/18 09:08 11/30/18 08:58 11/30/18 08:58 11/30/18 08:58 Oxygen Delivery Method Room Air Weight: 176 lb 5.917 oz Body Mass Index (BMI) 32.3 Finger Stick Blood Glucose 159 Intake and Output for Last 24 Hours 11/28/18 11/29/18 11/30/18 23:59 23:59 23:59 Intake Total 947 / 947 Output Total 600 / 600 Balance 347 / 347 Laboratory Tests Past 24 Hrs 11/30/18 11/30/18 11/30/18 00:39 00:39 00:39 WBC 10.1 RBC 2.81 L Hgb 10.0 L Hct 30.2 L MCV 107.5 H MCH 35.6 H MCHC 33.1 RDW 15.0 H RDW Differential 56.6 H Plt Count 283 MPV 11.1 Immature Gran % (Auto) 0.500 Neut % (Auto) 60.9 Lymph % (Auto) 29.7 [place] % (Auto) 5.8 Eos % (Auto) 2.4 Baso % (Auto) 0.7 Absolute Neuts (auto) 6.1 Absolute Lymphs (auto) 2.99 Total Counted Not Reportable PT 15.5 H INR 1.3 APTT 32.0 Sodium 135 L Potassium 4.3 Chloride 104 Carbon Dioxide 20.0 L Anion Gap 11 BUN 127 H* Creatinine 3.41 H Estim Creat Clear Calc 11.10 Est GFR (MDRD) Af Amer 17 L Est GFR (MDRD) Non-Af 14 L BUN/Creatinine Ratio 37.2 H Glucose 102 Calcium 7.6 L Phosphorus Magnesium Total Bilirubin 0.70 AST 55 H ALT 28 Alkaline Phosphatase 198 H Troponin I 0.048 H Total Protein 6.2 L Albumin 2.5 L Globulin 3.7 Albumin/Globulin Ratio 0.7 L Urine Color Urine Clarity Urine pH Ur Specific [place] Urine Protein Urine Glucose (UA) Urine Ketones Urine Occult Blood Urine Nitrite Urine Bilirubin Urine Urobilinogen Ur Leukocyte Esterase Urine RBC Urine WBC Ur Squamous Epith Cells Ur Transition Epith Cell Amorphous Sediment Urine Bacteria Urine Mucus Blood Type Antibody Screen Crossmatch 11/30/18 11/30/18 11/30/18 00:39 00:39 00:39 WBC RBC Hgb Hct MCV MCH MCHC RDW RDW Differential Plt Count MPV Immature Gran % (Auto) Neut % (Auto) Lymph % (Auto) [place] % (Auto) Eos % (Auto) Baso % (Auto) Absolute Neuts (auto) Absolute Lymphs (auto) Total Counted PT INR APTT Sodium Potassium Chloride Carbon Dioxide Anion Gap BUN Creatinine Estim Creat Clear Calc Est GFR (MDRD) Af Amer Est GFR (MDRD) Non-Af BUN/Creatinine Ratio Glucose Calcium Phosphorus 5.6 H Magnesium 1.5 L Total Bilirubin AST ALT Alkaline Phosphatase Troponin I Total Protein Albumin Globulin Albumin/Globulin Ratio Urine Color Urine Clarity Urine pH Ur Specific [place] Urine Protein Urine Glucose (UA) Urine Ketones Urine Occult Blood Urine Nitrite Urine Bilirubin Urine Urobilinogen Ur Leukocyte Esterase Urine RBC Urine WBC Ur Squamous Epith Cells Ur Transition Epith Cell Amorphous Sediment Urine Bacteria Urine Mucus Blood Type O POSITIVE Antibody Screen NEGATIVE Crossmatch See Detail 11/30/18 11/30/18 11/30/18 00:55 03:50 06:25 WBC RBC Hgb Hct MCV MCH MCHC RDW RDW Differential Plt Count MPV Immature Gran % (Auto) Neut % (Auto) Lymph % (Auto) [place] % (Auto) Eos % (Auto) Baso % (Auto) Absolute Neuts (auto) Absolute Lymphs (auto) Total Counted PT INR APTT Sodium 139 Potassium 4.0 Chloride 106 Carbon Dioxide 20.0 L Anion Gap 13 BUN 132 H* Creatinine 3.26 H Estim Creat Clear Calc 11.61 Est GFR (MDRD) Af Amer 18 L Est GFR (MDRD) Non-Af 15 L BUN/Creatinine Ratio 40.5 H Glucose 75 Calcium 7.6 L Phosphorus Magnesium Total Bilirubin AST ALT Alkaline Phosphatase Troponin I 0.054 H 0.054 H Total Protein Albumin Globulin Albumin/Globulin Ratio Urine Color Yellow Urine Clarity Sl. Cloudy Urine pH 5.0 Ur Specific [place] 1.015 Urine Protein 30 H Urine Glucose (UA) Normal Urine Ketones Negative Urine Occult Blood Negative Urine Nitrite Negative Urine Bilirubin Negative Urine Urobilinogen Normal Ur Leukocyte Esterase 100 H Urine RBC 0 SEEN Urine WBC 0-5 SEEN Ur Squamous Epith Cells 0 SEEN Ur Transition Epith Cell 0-5 SEEN Amorphous Sediment 1+ Urine Bacteria 0 SEEN Urine Mucus 0 SEEN Blood Type Antibody Screen Crossmatch 11/30/18 06:25 WBC 8.9 RBC 2.36 L Hgb 8.2 L Hct 25.5 L MCV 108.1 H MCH 34.7 H MCHC 32.2 RDW 14.9 H RDW Differential 56.5 H Plt Count 209 MPV 11.0 Immature Gran % (Auto) 0.600 Neut % (Auto) 55.4 Lymph % (Auto) 35.4 [place] % (Auto) 5.4 Eos % (Auto) 2.4 Baso % (Auto) 0.8 Absolute Neuts (auto) 4.9 Absolute Lymphs (auto) 3.14 Total Counted Not Reportable PT INR APTT Sodium Potassium Chloride Carbon Dioxide Anion Gap BUN Creatinine Estim Creat Clear Calc Est GFR (MDRD) Af Amer Est GFR (MDRD) Non-Af BUN/Creatinine Ratio Glucose Calcium Phosphorus Magnesium Total Bilirubin AST ALT Alkaline Phosphatase Troponin I Total Protein Albumin Globulin Albumin/Globulin Ratio Urine Color Urine Clarity Urine pH Ur Specific [place] Urine Protein Urine Glucose (UA) Urine Ketones Urine Occult Blood Urine Nitrite Urine Bilirubin Urine Urobilinogen Ur Leukocyte Esterase Urine RBC Urine WBC Ur Squamous Epith Cells Ur Transition Epith Cell Amorphous Sediment Urine Bacteria Urine Mucus Blood Type Antibody Screen Crossmatch POC Glucose 11/30/18 11/30/18 11:07 06:47 POC Glucose 198 H 72 Medical Necessity - Tobacco Use Smoking Status: Never smoker Tobacco Use: Non-smoker Assessment/Plan All Active Problems (Last Reviewed 11/30/18 @ 02:27 by Pete Ramirez DO) JOSE (acute kidney injury) (Acute) GI bleed (Acute) GI bleed (Acute) Acute coronary syndrome (Acute) Non-STEMI (non-ST elevated myocardial infarction) (Acute) Hypercholesterolemia (Acute) Congestive heart failure of unknown etiology (Acute) Abnormal EKG (Acute) 1. JOSE on CKDIV, recent cardiac catheterization-worsening renal function with poor output. Dr. Pearson is following, plans for possible dialysis tomorrow, Dr. Lawrence plans to take the patient to surgery tonight for catheter placement. 2. Acute blood loss anemia secondary to GI bleed due to external hemorrhoids plus aspirin and Plavix-cannot hold these as she had recent catheterization with drug-eluting stents. Supportive care, no further bleeding as of this morning. Hemoglobin did decline and she is symptomatic feeling very weak. Will transfuse 1 unit of packed red blood cells at this time and further monitor. Anemia is macrocytic however iron studies, B12, folate were unremarkable. 3. Elevated troponin, history of CAD with multiple stents-troponin is actually decreased from her recent visit where she had a non-ST segment IN I. Troponins were cycled, and are flat. Cardiology is following. At this point there is no plan for intervention until the patient is more stable. She will be maintained on the heart monitor. Chest x-ray is improved since prior exam. 4. History of systolic congestive heart failure-EF 50% recently. No sign of acute failure. 5. Type 2 diabetes mellitus-sliding scale insulin plus Lantus 6. 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 Digital indices artificially elevated per report. Doxy held at admission. Consult wound care. 7. Hypomagnesemia-repleted, check in a.m. DVT prophylaxis: SCDs. Discharge planning: We will need to arrange for outpatient dialysis at discharge. This patient was seen by Phil Villa PA-C under the supervision of Doctor Esvin. <Mart Mcallister - Last Filed: 11/30/18 15:42> - Physical Exam Vital Signs Temp Pulse Resp BP Pulse Ox 97.5 F L 74 16 137/53 H 97 11/30/18 15:03 11/30/18 15:03 11/30/18 15:03 11/30/18 15:03 11/30/18 15:03 Oxygen Delivery Method Room Air Weight: 80 kg Body Mass Index (BMI) 32.2 Finger Stick Blood Glucose 159 Intake and Output for Last 24 Hours 11/28/18 11/29/18 11/30/18 23:59 23:59 23:59 Intake Total 947 / 947 Output Total 600 / 600 Balance 347 / 347 Laboratory Tests Past 24 Hrs 11/30/18 11/30/18 11/30/18 00:39 00:39 00:39 WBC 10.1 RBC 2.81 L Hgb 10.0 L Hct 30.2 L MCV 107.5 H MCH 35.6 H MCHC 33.1 RDW 15.0 H RDW Differential 56.6 H Plt Count 283 MPV 11.1 Immature Gran % (Auto) 0.500 Neut % (Auto) 60.9 Lymph % (Auto) 29.7 [place] % (Auto) 5.8 Eos % (Auto) 2.4 Baso % (Auto) 0.7 Absolute Neuts (auto) 6.1 Absolute Lymphs (auto) 2.99 Total Counted Not Reportable PT 15.5 H INR 1.3 APTT 32.0 Sodium 135 L Potassium 4.3 Chloride 104 Carbon Dioxide 20.0 L Anion Gap 11 BUN 127 H* Creatinine 3.41 H Estim Creat Clear Calc 11.10 Est GFR (MDRD) Af Amer 17 L Est GFR (MDRD) Non-Af 14 L BUN/Creatinine Ratio 37.2 H Glucose 102 Calcium 7.6 L Phosphorus Magnesium Total Bilirubin 0.70 AST 55 H ALT 28 Alkaline Phosphatase 198 H Troponin I 0.048 H Total Protein 6.2 L Albumin 2.5 L Globulin 3.7 Albumin/Globulin Ratio 0.7 L Urine Color Urine Clarity Urine pH Ur Specific [place] Urine Protein Urine Glucose (UA) Urine Ketones Urine Occult Blood Urine Nitrite Urine Bilirubin Urine Urobilinogen Ur Leukocyte Esterase Urine RBC Urine WBC Ur Squamous Epith Cells Ur Transition Epith Cell Amorphous Sediment Urine Bacteria Urine Mucus Blood Type Antibody Screen Crossmatch 11/30/18 11/30/18 11/30/18 00:39 00:39 00:39 WBC RBC Hgb Hct MCV MCH MCHC RDW RDW Differential Plt Count MPV Immature Gran % (Auto) Neut % (Auto) Lymph % (Auto) [place] % (Auto) Eos % (Auto) Baso % (Auto) Absolute Neuts (auto) Absolute Lymphs (auto) Total Counted PT INR APTT Sodium Potassium Chloride Carbon Dioxide Anion Gap BUN Creatinine Estim Creat Clear Calc Est GFR (MDRD) Af Amer Est GFR (MDRD) Non-Af BUN/Creatinine Ratio Glucose Calcium Phosphorus 5.6 H Magnesium 1.5 L Total Bilirubin AST ALT Alkaline Phosphatase Troponin I Total Protein Albumin Globulin Albumin/Globulin Ratio Urine Color Urine Clarity Urine pH Ur Specific [place] Urine Protein Urine Glucose (UA) Urine Ketones Urine Occult Blood Urine Nitrite Urine Bilirubin Urine Urobilinogen Ur Leukocyte Esterase Urine RBC Urine WBC Ur Squamous Epith Cells Ur Transition Epith Cell Amorphous Sediment Urine Bacteria Urine Mucus Blood Type O POSITIVE Antibody Screen NEGATIVE Crossmatch See Detail 11/30/18 11/30/18 11/30/18 00:55 03:50 06:25 WBC RBC Hgb Hct MCV MCH MCHC RDW RDW Differential Plt Count MPV Immature Gran % (Auto) Neut % (Auto) Lymph % (Auto) [place] % (Auto) Eos % (Auto) Baso % (Auto) Absolute Neuts (auto) Absolute Lymphs (auto) Total Counted PT INR APTT Sodium 139 Potassium 4.0 Chloride 106 Carbon Dioxide 20.0 L Anion Gap 13 BUN 132 H* Creatinine 3.26 H Estim Creat Clear Calc 11.61 Est GFR (MDRD) Af Amer 18 L Est GFR (MDRD) Non-Af 15 L BUN/Creatinine Ratio 40.5 H Glucose 75 Calcium 7.6 L Phosphorus Magnesium Total Bilirubin AST ALT Alkaline Phosphatase Troponin I 0.054 H 0.054 H Total Protein Albumin Globulin Albumin/Globulin Ratio Urine Color Yellow Urine Clarity Sl. Cloudy Urine pH 5.0 Ur Specific [place] 1.015 Urine Protein 30 H Urine Glucose (UA) Normal Urine Ketones Negative Urine Occult Blood Negative Urine Nitrite Negative Urine Bilirubin Negative Urine Urobilinogen Normal Ur Leukocyte Esterase 100 H Urine RBC 0 SEEN Urine WBC 0-5 SEEN Ur Squamous Epith Cells 0 SEEN Ur Transition Epith Cell 0-5 SEEN Amorphous Sediment 1+ Urine Bacteria 0 SEEN Urine Mucus 0 SEEN Blood Type Antibody Screen Crossmatch 11/30/18 06:25 WBC 8.9 RBC 2.36 L Hgb 8.2 L Hct 25.5 L MCV 108.1 H MCH 34.7 H MCHC 32.2 RDW 14.9 H RDW Differential 56.5 H Plt Count 209 MPV 11.0 Immature Gran % (Auto) 0.600 Neut % (Auto) 55.4 Lymph % (Auto) 35.4 [place] % (Auto) 5.4 Eos % (Auto) 2.4 Baso % (Auto) 0.8 Absolute Neuts (auto) 4.9 Absolute Lymphs (auto) 3.14 Total Counted Not Reportable PT INR APTT Sodium Potassium Chloride Carbon Dioxide Anion Gap BUN Creatinine Estim Creat Clear Calc Est GFR (MDRD) Af Amer Est GFR (MDRD) Non-Af BUN/Creatinine Ratio Glucose Calcium Phosphorus Magnesium Total Bilirubin AST ALT Alkaline Phosphatase Troponin I Total Protein Albumin Globulin Albumin/Globulin Ratio Urine Color Urine Clarity Urine pH Ur Specific [place] Urine Protein Urine Glucose (UA) Urine Ketones Urine Occult Blood Urine Nitrite Urine Bilirubin Urine Urobilinogen Ur Leukocyte Esterase Urine RBC Urine WBC Ur Squamous Epith Cells Ur Transition Epith Cell Amorphous Sediment Urine Bacteria Urine Mucus Blood Type Antibody Screen Crossmatch POC Glucose 11/30/18 11/30/18 11:07 06:47 POC Glucose 198 H 72 Assessment/Plan This patient was seen in conjunction with Phil Villa PA-C . I have independently interviewed and examined the patient and reviewed pertinent historical, laboratory, and other data. Please refer to Phil Villa PA-C note for details of this patient's presentation, findings, and recommendations. I have reviewed Phil Villa PA-C note and concur with documented findings. In brief, patient is a 78-year-old lady with poor comorbidities admitted with exertional dyspnea; intermittent hematochezia. Patient was found to have worsening kidney function with BUN greater than 130 on admission admitted to a monitored bed for subsequent management Physical Examination: GENERAL: cooperative HEENT: Atraumatic; EYES; Anicteric, NECK; supple, normal thyroid, RESPIRATORY: Diminished to auscultation bilaterally, CARDIOVASCULAR: Regular S1 S2, no audible murmurs GI: soft, non-tender, normoactive bowel sounds, : No Renal angle tenderness; NEURO: Awake; no lateralizing signs. SKIN: No Rash PSYCH; Normal affect Assessment: 1. Acute kidney injury in the setting of chronic kidney disease stage IV 2. Anemia secondary to acute blood loss anemia with patient being symptomatic and order was given for patient to be transfused 1 unit PRBC 3. CAD with multiple stents placement in the past 4. Elevated troponin ; cardiology consulted 5. Congestive heart failure with preserved ejection fraction 6. Diabetes mellitus type 2 7. 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 Hypomagnesemia 9. Autoimmune hepatitis patient is on Azathioprine (Imuran) as well as budesonide: Followed by Dr. Taylor as outpatient 10. Essential hypertension 11. GERD on Protonix 12. DVT prophylaxis: SCDs. Recommendations: 1. I have discussed the results of my overview and impressions with the patient 2. Options for management were reviewed Active Medications Acetaminophen (Tylenol) 650 mg PO Q6H PRN PRN PRN Reason: Mild Pain (1-3)/Temp > 100.7 F Last Admin: 11/30/18 11:04 Dose: 650 mg Aspirin (Aspirin, Baby) 81 mg PO DAILY@0800 [facility] Last Admin: 11/30/18 09:07 Dose: 81 mg Azathioprine (Imuran) 100 mg PO DAILY@0800 [facility] Last Admin: 11/30/18 09:09 Dose: 100 mg Carvedilol (Coreg) 3.125 mg PO BID [facility] Clopidogrel Bisulfate (Plavix) 75 mg PO DAILY [facility] Last Admin: 11/30/18 09:08 Dose: 75 mg Hydralazine HCl (Apresoline) 50 mg PO BID [facility] Cefazolin Sodium 2 gm/ Sodium (Chloride) 120 mls @ 240 mls/hr IV SEND TO OR W/PATIENT ONE Stop: 11/30/18 16:29 Insulin Glargine (Lantus (Bkc)) 30 units SC BREAKFAST [facility] Last Admin: 11/30/18 09:15 Dose: Not Given Insulin Human Lispro (Humalog Kwikpen (Bkc)) 0 unit SC ACHS [facility]; Protocol Last Admin: 11/30/18 11:14 Dose: 2 units Isosorbide Mononitrate (Imdur) 60 mg PO DAILY [facility] Last Admin: 11/30/18 09:08 Dose: 60 mg Magnesium Hydroxide (Milk Of Magnesia) 30 ml PO DAILY PRN PRN Reason: Constipation Nitroglycerin (Nitrostat) 0.4 mg SUBLINGUAL Q5M PRN PRN Reason: CARDIAC/CHEST PAIN Nutritional Formula (Lactose Free) (Glucerna Shake) 120 ml PO 4X/DAY [facility] Last Admin: 11/30/18 13:13 Dose: Not Given Ondansetron HCl (Zofran) 4 mg IV Q8H PRN PRN PRN Reason: NAUSEA Pantoprazole Sodium (Protonix) 20 mg PO DAILY [facility] Last Admin: 11/30/18 09:08 Dose: 20 mg Ranolazine (Ranexa) 500 mg PO BID [facility] Last Admin: 11/30/18 09:08 Dose: 500 mg Sodium Bicarbonate (Sodium Bicarbonate) 650 mg PO BID [facility] Last Admin: 11/30/18 09:08 Dose: 650 mg Sodium Chloride () 5 - 15 ml IV UD PRN PRN Reason: SALINE FLUSH Last Admin: 11/30/18 15:10 Dose: 10 ml Clinical Impression(s) from Imaging Studies Chest X-Ray 11/29/18 23:25 IMPRESSION: Decreased lung volumes since previous exam. Mild atelectasis or infiltrate in the lung bases but improved since prior exam. Electronically Signed: Darin Sky MD at 23:48 EST , Service support , Code Visit Inpatient E&M: 17964 [facility] L3
--- NOTE | 2018-11-30 15:12 | PN_ITS ---
<Phil Villa - Last Filed: 11/30/18 15:03> Patient Problems: Active and Suspected Problems (Last Reviewed 11/30/18 @ 02:27 by Pete Ramirez DO) JOSE (acute kidney injury) (Acute) GI bleed (Acute) Subjective: Patient continues to make very little urine. As of this morning she had not had any further bowel movement or noticed any further bleeding. The rectal bleeding was described as bright red drops on the side of the toilet, some pinkness to the water in the toilet. She has a history of hemorrhoids. She has no fevers or chills. No abdominal pain. No shortness of breath at this time. She complains of feeling very weak, and she also does complain of some squeezing chest pain. At this time no lightheadedness or dizziness. No palpitations. - Physical Exam General: Alert, Oriented x3, Cooperative HEENT: Atraumatic, PERRLA, EOMI, Normocephalic Neck: Supple, No JVD, Negative Carotid Bruits Lungs: Clear to auscultation, Normal air movement Cardiovascular: Regular rate, No murmurs Abdomen: Bowel Sounds Present, Soft, Non Tender Extremities: No edema, Capillary Refill Less than 3 Seconds Skin: No rashes, No breakdown Musculoskeletal: No Tenderness to Palpation of Joints or Extremities Neurological: Cranial nerves II-XII grossly intact Psych/Mental Status: Normal Affect, Appropriate Vital Signs Temp Pulse Resp BP Pulse Ox 97.8 F 71 16 158/70 H 95 11/30/18 08:58 11/30/18 09:08 11/30/18 08:58 11/30/18 08:58 11/30/18 08:58 Oxygen Delivery Method Room Air Weight: 176 lb 5.917 oz Body Mass Index (BMI) 32.3 Finger Stick Blood Glucose 159 Intake and Output for Last 24 Hours 11/28/18 11/29/18 11/30/18 23:59 23:59 23:59 Intake Total 947 / 947 Output Total 600 / 600 Balance 347 / 347 Laboratory Tests Past 24 Hrs 11/30/18 11/30/18 11/30/18 00:39 00:39 00:39 WBC 10.1 RBC 2.81 L Hgb 10.0 L Hct 30.2 L MCV 107.5 H MCH 35.6 H MCHC 33.1 RDW 15.0 H RDW Differential 56.6 H Plt Count 283 MPV 11.1 Immature Gran % (Auto) 0.500 Neut % (Auto) 60.9 Lymph % (Auto) 29.7 Archer % (Auto) 5.8 Eos % (Auto) 2.4 Baso % (Auto) 0.7 Absolute Neuts (auto) 6.1 Absolute Lymphs (auto) 2.99 Total Counted Not Reportable PT 15.5 H INR 1.3 APTT 32.0 Sodium 135 L Potassium 4.3 Chloride 104 Carbon Dioxide 20.0 L Anion Gap 11 BUN 127 H* Creatinine 3.41 H Estim Creat Clear Calc 11.10 Est GFR (MDRD) Af Amer 17 L Est GFR (MDRD) Non-Af 14 L BUN/Creatinine Ratio 37.2 H Glucose 102 Calcium 7.6 L Phosphorus Magnesium Total Bilirubin 0.70 AST 55 H ALT 28 Alkaline Phosphatase 198 H Troponin I 0.048 H Total Protein 6.2 L Albumin 2.5 L Globulin 3.7 Albumin/Globulin Ratio 0.7 L Urine Color Urine Clarity Urine pH Ur Specific Hopkins Urine Protein Urine Glucose (UA) Urine Ketones Urine Occult Blood Urine Nitrite Urine Bilirubin Urine Urobilinogen Ur Leukocyte Esterase Urine RBC Urine WBC Ur Squamous Epith Cells Ur Transition Epith Cell Amorphous Sediment Urine Bacteria Urine Mucus Blood Type Antibody Screen Crossmatch 11/30/18 11/30/18 11/30/18 00:39 00:39 00:39 WBC RBC Hgb Hct MCV MCH MCHC RDW RDW Differential Plt Count MPV Immature Gran % (Auto) Neut % (Auto) Lymph % (Auto) Archer % (Auto) Eos % (Auto) Baso % (Auto) Absolute Neuts (auto) Absolute Lymphs (auto) Total Counted PT INR APTT Sodium Potassium Chloride Carbon Dioxide Anion Gap BUN Creatinine Estim Creat Clear Calc Est GFR (MDRD) Af Amer Est GFR (MDRD) Non-Af BUN/Creatinine Ratio Glucose Calcium Phosphorus 5.6 H Magnesium 1.5 L Total Bilirubin AST ALT Alkaline Phosphatase Troponin I Total Protein Albumin Globulin Albumin/Globulin Ratio Urine Color Urine Clarity Urine pH Ur Specific Hopkins Urine Protein Urine Glucose (UA) Urine Ketones Urine Occult Blood Urine Nitrite Urine Bilirubin Urine Urobilinogen Ur Leukocyte Esterase Urine RBC Urine WBC Ur Squamous Epith Cells Ur Transition Epith Cell Amorphous Sediment Urine Bacteria Urine Mucus Blood Type O POSITIVE Antibody Screen NEGATIVE Crossmatch See Detail 11/30/18 11/30/18 11/30/18 00:55 03:50 06:25 WBC RBC Hgb Hct MCV MCH MCHC RDW RDW Differential Plt Count MPV Immature Gran % (Auto) Neut % (Auto) Lymph % (Auto) Archer % (Auto) Eos % (Auto) Baso % (Auto) Absolute Neuts (auto) Absolute Lymphs (auto) Total Counted PT INR APTT Sodium 139 Potassium 4.0 Chloride 106 Carbon Dioxide 20.0 L Anion Gap 13 BUN 132 H* Creatinine 3.26 H Estim Creat Clear Calc 11.61 Est GFR (MDRD) Af Amer 18 L Est GFR (MDRD) Non-Af 15 L BUN/Creatinine Ratio 40.5 H Glucose 75 Calcium 7.6 L Phosphorus Magnesium Total Bilirubin AST ALT Alkaline Phosphatase Troponin I 0.054 H 0.054 H Total Protein Albumin Globulin Albumin/Globulin Ratio Urine Color Yellow Urine Clarity Sl. Cloudy Urine pH 5.0 Ur Specific Hopkins 1.015 Urine Protein 30 H Urine Glucose (UA) Normal Urine Ketones Negative Urine Occult Blood Negative Urine Nitrite Negative Urine Bilirubin Negative Urine Urobilinogen Normal Ur Leukocyte Esterase 100 H Urine RBC 0 SEEN Urine WBC 0-5 SEEN Ur Squamous Epith Cells 0 SEEN Ur Transition Epith Cell 0-5 SEEN Amorphous Sediment 1+ Urine Bacteria 0 SEEN Urine Mucus 0 SEEN Blood Type Antibody Screen Crossmatch 11/30/18 06:25 WBC 8.9 RBC 2.36 L Hgb 8.2 L Hct 25.5 L MCV 108.1 H MCH 34.7 H MCHC 32.2 RDW 14.9 H RDW Differential 56.5 H Plt Count 209 MPV 11.0 Immature Gran % (Auto) 0.600 Neut % (Auto) 55.4 Lymph % (Auto) 35.4 Archer % (Auto) 5.4 Eos % (Auto) 2.4 Baso % (Auto) 0.8 Absolute Neuts (auto) 4.9 Absolute Lymphs (auto) 3.14 Total Counted Not Reportable PT INR APTT Sodium Potassium Chloride Carbon Dioxide Anion Gap BUN Creatinine Estim Creat Clear Calc Est GFR (MDRD) Af Amer Est GFR (MDRD) Non-Af BUN/Creatinine Ratio Glucose Calcium Phosphorus Magnesium Total Bilirubin AST ALT Alkaline Phosphatase Troponin I Total Protein Albumin Globulin Albumin/Globulin Ratio Urine Color Urine Clarity Urine pH Ur Specific Hopkins Urine Protein Urine Glucose (UA) Urine Ketones Urine Occult Blood Urine Nitrite Urine Bilirubin Urine Urobilinogen Ur Leukocyte Esterase Urine RBC Urine WBC Ur Squamous Epith Cells Ur Transition Epith Cell Amorphous Sediment Urine Bacteria Urine Mucus Blood Type Antibody Screen Crossmatch POC Glucose 11/30/18 11/30/18 11:07 06:47 POC Glucose 198 H 72 Medical Necessity - Tobacco Use Smoking Status: Never smoker Tobacco Use: Non-smoker Assessment/Plan All Active Problems (Last Reviewed 11/30/18 @ 02:27 by Pete Ramirez DO) JOSE (acute kidney injury) (Acute) GI bleed (Acute) GI bleed (Acute) Acute coronary syndrome (Acute) Non-STEMI (non-ST elevated myocardial infarction) (Acute) Hypercholesterolemia (Acute) Congestive heart failure of unknown etiology (Acute) Abnormal EKG (Acute) 1. JOSE on CKDIV, recent cardiac catheterization-worsening renal function with poor output. Dr. Pearson is following, plans for possible dialysis tomorrow, Dr. Lawrence plans to take the patient to surgery tonight for catheter placement. 2. Acute blood loss anemia secondary to GI bleed due to external hemorrhoids plus aspirin and Plavix-cannot hold these as she had recent catheterization with drug-eluting stents. Supportive care, no further bleeding as of this morning. Hemoglobin did decline and she is symptomatic feeling very weak. Will transfuse 1 unit of packed red blood cells at this time and further monitor. Anemia is macrocytic however iron studies, B12, folate were unremarkable. 3. Elevated troponin, history of CAD with multiple stents-troponin is actually decreased from her recent visit where she had a non-ST segment UT I. Troponins were cycled, and are flat. Cardiology is following. At this point there is no plan for intervention until the patient is more stable. She will be maintained on the heart monitor. Chest x-ray is improved since prior exam. 4. History of systolic congestive heart failure-EF 50% recently. No sign of acute failure. 5. Type 2 diabetes mellitus-sliding scale insulin plus Lantus 6. 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 Digital indices artificially elevated per report. Doxy held at admission. Consult wound care. 7. Hypomagnesemia-repleted, check in a.m. DVT prophylaxis: SCDs. Discharge planning: We will need to arrange for outpatient dialysis at discharge. This patient was seen by Phil Villa PA-C under the supervision of Doctor Esvin. <Mart Mcallister - Last Filed: 11/30/18 15:42> - Physical Exam Vital Signs Temp Pulse Resp BP Pulse Ox 97.5 F L 74 16 137/53 H 97 11/30/18 15:03 11/30/18 15:03 11/30/18 15:03 11/30/18 15:03 11/30/18 15:03 Oxygen Delivery Method Room Air Weight: 80 kg Body Mass Index (BMI) 32.2 Finger Stick Blood Glucose 159 Intake and Output for Last 24 Hours 11/28/18 11/29/18 11/30/18 23:59 23:59 23:59 Intake Total 947 / 947 Output Total 600 / 600 Balance 347 / 347 Laboratory Tests Past 24 Hrs 11/30/18 11/30/18 11/30/18 00:39 00:39 00:39 WBC 10.1 RBC 2.81 L Hgb 10.0 L Hct 30.2 L MCV 107.5 H MCH 35.6 H MCHC 33.1 RDW 15.0 H RDW Differential 56.6 H Plt Count 283 MPV 11.1 Immature Gran % (Auto) 0.500 Neut % (Auto) 60.9 Lymph % (Auto) 29.7 Archer % (Auto) 5.8 Eos % (Auto) 2.4 Baso % (Auto) 0.7 Absolute Neuts (auto) 6.1 Absolute Lymphs (auto) 2.99 Total Counted Not Reportable PT 15.5 H INR 1.3 APTT 32.0 Sodium 135 L Potassium 4.3 Chloride 104 Carbon Dioxide 20.0 L Anion Gap 11 BUN 127 H* Creatinine 3.41 H Estim Creat Clear Calc 11.10 Est GFR (MDRD) Af Amer 17 L Est GFR (MDRD) Non-Af 14 L BUN/Creatinine Ratio 37.2 H Glucose 102 Calcium 7.6 L Phosphorus Magnesium Total Bilirubin 0.70 AST 55 H ALT 28 Alkaline Phosphatase 198 H Troponin I 0.048 H Total Protein 6.2 L Albumin 2.5 L Globulin 3.7 Albumin/Globulin Ratio 0.7 L Urine Color Urine Clarity Urine pH Ur Specific Hopkins Urine Protein Urine Glucose (UA) Urine Ketones Urine Occult Blood Urine Nitrite Urine Bilirubin Urine Urobilinogen Ur Leukocyte Esterase Urine RBC Urine WBC Ur Squamous Epith Cells Ur Transition Epith Cell Amorphous Sediment Urine Bacteria Urine Mucus Blood Type Antibody Screen Crossmatch 11/30/18 11/30/18 11/30/18 00:39 00:39 00:39 WBC RBC Hgb Hct MCV MCH MCHC RDW RDW Differential Plt Count MPV Immature Gran % (Auto) Neut % (Auto) Lymph % (Auto) Archer % (Auto) Eos % (Auto) Baso % (Auto) Absolute Neuts (auto) Absolute Lymphs (auto) Total Counted PT INR APTT Sodium Potassium Chloride Carbon Dioxide Anion Gap BUN Creatinine Estim Creat Clear Calc Est GFR (MDRD) Af Amer Est GFR (MDRD) Non-Af BUN/Creatinine Ratio Glucose Calcium Phosphorus 5.6 H Magnesium 1.5 L Total Bilirubin AST ALT Alkaline Phosphatase Troponin I Total Protein Albumin Globulin Albumin/Globulin Ratio Urine Color Urine Clarity Urine pH Ur Specific Hopkins Urine Protein Urine Glucose (UA) Urine Ketones Urine Occult Blood Urine Nitrite Urine Bilirubin Urine Urobilinogen Ur Leukocyte Esterase Urine RBC Urine WBC Ur Squamous Epith Cells Ur Transition Epith Cell Amorphous Sediment Urine Bacteria Urine Mucus Blood Type O POSITIVE Antibody Screen NEGATIVE Crossmatch See Detail 11/30/18 11/30/18 11/30/18 00:55 03:50 06:25 WBC RBC Hgb Hct MCV MCH MCHC RDW RDW Differential Plt Count MPV Immature Gran % (Auto) Neut % (Auto) Lymph % (Auto) Archer % (Auto) Eos % (Auto) Baso % (Auto) Absolute Neuts (auto) Absolute Lymphs (auto) Total Counted PT INR APTT Sodium 139 Potassium 4.0 Chloride 106 Carbon Dioxide 20.0 L Anion Gap 13 BUN 132 H* Creatinine 3.26 H Estim Creat Clear Calc 11.61 Est GFR (MDRD) Af Amer 18 L Est GFR (MDRD) Non-Af 15 L BUN/Creatinine Ratio 40.5 H Glucose 75 Calcium 7.6 L Phosphorus Magnesium Total Bilirubin AST ALT Alkaline Phosphatase Troponin I 0.054 H 0.054 H Total Protein Albumin Globulin Albumin/Globulin Ratio Urine Color Yellow Urine Clarity Sl. Cloudy Urine pH 5.0 Ur Specific Hopkins 1.015 Urine Protein 30 H Urine Glucose (UA) Normal Urine Ketones Negative Urine Occult Blood Negative Urine Nitrite Negative Urine Bilirubin Negative Urine Urobilinogen Normal Ur Leukocyte Esterase 100 H Urine RBC 0 SEEN Urine WBC 0-5 SEEN Ur Squamous Epith Cells 0 SEEN Ur Transition Epith Cell 0-5 SEEN Amorphous Sediment 1+ Urine Bacteria 0 SEEN Urine Mucus 0 SEEN Blood Type Antibody Screen Crossmatch 11/30/18 06:25 WBC 8.9 RBC 2.36 L Hgb 8.2 L Hct 25.5 L MCV 108.1 H MCH 34.7 H MCHC 32.2 RDW 14.9 H RDW Differential 56.5 H Plt Count 209 MPV 11.0 Immature Gran % (Auto) 0.600 Neut % (Auto) 55.4 Lymph % (Auto) 35.4 Archer % (Auto) 5.4 Eos % (Auto) 2.4 Baso % (Auto) 0.8 Absolute Neuts (auto) 4.9 Absolute Lymphs (auto) 3.14 Total Counted Not Reportable PT INR APTT Sodium Potassium Chloride Carbon Dioxide Anion Gap BUN Creatinine Estim Creat Clear Calc Est GFR (MDRD) Af Amer Est GFR (MDRD) Non-Af BUN/Creatinine Ratio Glucose Calcium Phosphorus Magnesium Total Bilirubin AST ALT Alkaline Phosphatase Troponin I Total Protein Albumin Globulin Albumin/Globulin Ratio Urine Color Urine Clarity Urine pH Ur Specific Hopkins Urine Protein Urine Glucose (UA) Urine Ketones Urine Occult Blood Urine Nitrite Urine Bilirubin Urine Urobilinogen Ur Leukocyte Esterase Urine RBC Urine WBC Ur Squamous Epith Cells Ur Transition Epith Cell Amorphous Sediment Urine Bacteria Urine Mucus Blood Type Antibody Screen Crossmatch POC Glucose 11/30/18 11/30/18 11:07 06:47 POC Glucose 198 H 72 Assessment/Plan This patient was seen in conjunction with Phil Villa PA-C . I have independently interviewed and examined the patient and reviewed pertinent historical, laboratory, and other data. Please refer to Phil Villa PA-C note for details of this patient's presentation, findings, and recommendations. I have reviewed Phil Villa PA-C note and concur with documented findings. In brief, patient is a 78-year-old lady with poor comorbidities admitted with exertional dyspnea; intermittent hematochezia. Patient was found to have worsening kidney function with BUN greater than 130 on admission admitted to a monitored bed for subsequent management Physical Examination: GENERAL: cooperative HEENT: Atraumatic; EYES; Anicteric, NECK; supple, normal thyroid, RESPIRATORY: Diminished to auscultation bilaterally, CARDIOVASCULAR: Regular S1 S2, no audible murmurs GI: soft, non-tender, normoactive bowel sounds, : No Renal angle tenderness; NEURO: Awake; no lateralizing signs. SKIN: No Rash PSYCH; Normal affect Assessment: 1. Acute kidney injury in the setting of chronic kidney disease stage IV 2. Anemia secondary to acute blood loss anemia with patient being symptomatic and order was given for patient to be transfused 1 unit PRBC 3. CAD with multiple stents placement in the past 4. Elevated troponin ; cardiology consulted 5. Congestive heart failure with preserved ejection fraction 6. Diabetes mellitus type 2 7. 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 Hypomagnesemia 9. Autoimmune hepatitis patient is on Azathioprine (Imuran) as well as budesonide: Followed by Dr. Taylor as outpatient 10. Essential hypertension 11. GERD on Protonix 12. DVT prophylaxis: SCDs. Recommendations: 1. I have discussed the results of my overview and impressions with the patient 2. Options for management were reviewed Active Medications Acetaminophen (Tylenol) 650 mg PO Q6H PRN PRN PRN Reason: Mild Pain (1-3)/Temp > 100.7 F Last Admin: 11/30/18 11:04 Dose: 650 mg Aspirin (Aspirin, Baby) 81 mg PO DAILY@0800 [facility] Last Admin: 11/30/18 09:07 Dose: 81 mg Azathioprine (Imuran) 100 mg PO DAILY@0800 [facility] Last Admin: 11/30/18 09:09 Dose: 100 mg Carvedilol (Coreg) 3.125 mg PO BID [facility] Clopidogrel Bisulfate (Plavix) 75 mg PO DAILY [facility] Last Admin: 11/30/18 09:08 Dose: 75 mg Hydralazine HCl (Apresoline) 50 mg PO BID [facility] Cefazolin Sodium 2 gm/ Sodium (Chloride) 120 mls @ 240 mls/hr IV SEND TO OR W/PATIENT ONE Stop: 11/30/18 16:29 Insulin Glargine (Lantus (Bkc)) 30 units SC BREAKFAST [facility] Last Admin: 11/30/18 09:15 Dose: Not Given Insulin Human Lispro (Humalog Kwikpen (Bkc)) 0 unit SC ACHS [facility]; Protocol Last Admin: 11/30/18 11:14 Dose: 2 units Isosorbide Mononitrate (Imdur) 60 mg PO DAILY [facility] Last Admin: 11/30/18 09:08 Dose: 60 mg Magnesium Hydroxide (Milk Of Magnesia) 30 ml PO DAILY PRN PRN Reason: Constipation Nitroglycerin (Nitrostat) 0.4 mg SUBLINGUAL Q5M PRN PRN Reason: CARDIAC/CHEST PAIN Nutritional Formula (Lactose Free) (Glucerna Shake) 120 ml PO 4X/DAY [facility] Last Admin: 11/30/18 13:13 Dose: Not Given Ondansetron HCl (Zofran) 4 mg IV Q8H PRN PRN PRN Reason: NAUSEA Pantoprazole Sodium (Protonix) 20 mg PO DAILY [facility] Last Admin: 11/30/18 09:08 Dose: 20 mg Ranolazine (Ranexa) 500 mg PO BID [facility] Last Admin: 11/30/18 09:08 Dose: 500 mg Sodium Bicarbonate (Sodium Bicarbonate) 650 mg PO BID [facility] Last Admin: 11/30/18 09:08 Dose: 650 mg Sodium Chloride () 5 - 15 ml IV UD PRN PRN Reason: SALINE FLUSH Last Admin: 11/30/18 15:10 Dose: 10 ml Clinical Impression(s) from Imaging Studies Chest X-Ray 11/29/18 23:25 IMPRESSION: Decreased lung volumes since previous exam. Mild atelectasis or infiltrate in the lung bases but improved since prior exam. Electronically Signed: Darin Sky MD at 23:48 EST , Service support , Code Visit Inpatient E&M: [id number] [facility] Hosp L3
[2018-11-30] MEDS: Cefazolin 2 GM in 0.9% Normal Saline 100 ML IV (16:05)
[2018-11-30 16:06] LABS: Bedside Glucose 163 mg/dL (70-110)
--- NOTE | 2018-11-30 16:07 | DCINST_ITS ---
Discharge Diet: Renal Diet Discharge Activity: May Not Shower Lifting Restrictions: 10 pounds Call your doctor if your incision/area has: Continuous Slow Oozing, Sudden Increased Bleeding, Increased Pain/ Swelling, Increased Redness, Foul Smelling Discharge Call your doctor if you observe: Fever of 101 or Higher Additional Dressing/Incision Instructions:: Your catheter dressing changes will be performed by the dialysis staff. Please keep the dressings clean and dry Allergies/Adverse Reactions: Allergies atorvastatin [From Lipitor] Adverse Reaction (Severe, Verified 11/29/18 23:05) Myalgias codeine Adverse Reaction (Verified 11/29/18 23:05) Hives pain medications Adverse Reaction (Intermediate, Uncoded 11/29/18 23:05) nausea/vomiting Medications to take at Discharge Atenolol [Tenormin (beta marilyn)] 100 mg PO DAILY 12/05/17 Azathioprine [Imuran] 100 mg PO DAILY@0800 11/15/18 Budesonide [Budesonide EC] 3 mg PO DAILY 11/15/18 Aspirin [Aspirin, Baby] 81 mg PO DAILY@0800 #30 tab.chew 11/23/18 Doxycycline 100 mg PO BID #4 capsule 11/23/18 Furosemide [Lasix] 40 mg PO DAILY #30 tablet 11/23/18 Insulin Glargine [Lantus SoloStar Pen] 30 units SC BREAKFAST pen 11/23/18 Insulin Lispro [Humalog KwikPen] See Protocol SQ ACHS insuln.pen 11/23/18 Isosorbide Mononitrate [Imdur] 60 mg PO DAILY #30 tablet 11/23/18 Nitroglycerin [Nitrostat] 0.4 mg SUBLINGUAL Q5M PRN #10 tablet 11/23/18 Pantoprazole Sodium [Protonix] 20 mg PO DAILY #30 tablet 11/23/18 Ranolazine [Ranexa] 500 mg PO BID #60 11/23/18 Sodium Bicarbonate 650 mg PO BID #60 tablet 11/23/18 pravastatin 20 mg tablet 20 mg PO QHS #30 tab 11/24/18 Clopidogrel Bisulfate [Plavix] 75 mg PO DAILY 11/30/18 hydrALAZINE [Apresoline] 25 mg PO BID 11/30/18 Primary Care Physician: Taylor Alvarenga MD [Primary Care Provider] - Test Results: Test results from this visit will be discussed in further detail at your follow- up appointment, if applicable. Please Follow Up With: Darinel Lawrence MD - [phone] When: Call to make an appointment to be seen when stabilized for fistula
[2018-11-30] MEDS: Heparin 10,000 UNITS/10 ML Vial 10000 UNITS (16:24)
[2018-11-30] MEDS: Bupivacaine Mpf 0.5% 30 ML VIAL (16:24)
--- NOTE | 2018-11-30 16:34 | PCM.OPRPT ---
Problem List (1) JOSE (acute kidney injury) Status: Acute Report of Operation Date of Procedure: 11/30/18 Pre-Operative Diagnosis: Acute and chronic kidney injury Post-Operative Diagnosis: Same Surgery/Procedure Performed:: Right internal jugular 19 cm pre-curved palindrome catheter placement. Reference #[id number]. Lot #[id number] expiry date 06/01/2023 Description of Surgical Findings:: Timeout and informed consent was obtained. 78-year-old female was taken to the operating placement table underwent monitored anesthesia care. Ancef 2 g preoperatively. The right neck and chest were sterilely prepped and draped. Ultrasound guidance 1% lidocaine mixed 50-50 with 0.5% Marcaine was used as local anesthetic. Throughout the procedure total 10 cc was used. Local was instilled and a micropuncture needle inserted in the right internal jugular vein followed by salvage wire advancement. Local was instilled down upon the chest wall. An appropriate exit site a small stab incision was created in the 19 cm pre-curved palindrome of the chest to the neck site. The micropuncture sheath dilator placed over the wire and the wire dilator were removed. 035 J-wire was placed. Fluoroscopy demonstrated good positioning. Serial dilatation was performed. The sheath dilator was inserted over the wire. The dilator and the wire were removed. The catheter was advanced through the sheath. The sheath was split. Fluoroscopy demonstrated good positioning. The catheter aspirated easily. It was flushed with saline and then 2 cc of heparinized saline per channel. The counterincision neck site was closed with interrupted 4-0 Vicryl subdermal stitch. The catheter was secured to skin with interrupted 3-0 nylon. Silver impregnated dressing were applied at the exit site and Steri-Strips Telfa OpSite dressing at the neck site. Sponge and instrument and needle counts were reported the surgeon be correct. Blood loss minimal. Specimens none. Drains none. She was taken to the recovery area in satisfactory condition without apparent complication. Stat portable chest x-ray is pending. Successful placement right internal jugular tunneled dialysis catheter Darinel Lawrence M.D., F.A.C.S. Type of Anesthesia:: Local MAC Anesthesiologist: Maddie Luis
--- NOTE | 2018-11-30 16:55 | RAD_ITS ---
STUDY: X-RAY CHEST REASON FOR EXAM: Female, 78 years old. Line placement. TECHNIQUE: Single AP portable view of the chest. COMPARISON: 11/29/2018. FINDINGS: Double-lumen dialysis catheter is seen through the right IJ into the upper right atrium. No pneumothorax. Moderate lung volumes. Mild but improved prominence of interstitial markings. No definite infiltrates. Possible small left pleural effusion. Mild cardiomegaly. RAD/Chest 1 View (Portable) IMPRESSION: Dialysis catheter terminates in the right atrium without pneumothorax. Overall improved appearance of the lungs since previous study. Electronically Signed: Darin Sky MD at 17:13 EST , Service support ,
[2018-11-30] MEDS: hydrALAZINE 50 MG Tablet PO (21:25)
[2018-11-30] MEDS: Carvedilol 3.125 MG TABLET PO (21:25)
[2018-11-30 23:30] LABS: Bedside Glucose 166 mg/dL (70-110)
[2018-12-01] VITALS (15 sets, daily range): BP systolic 127–164; BP diastolic 57–68; PULSE 66–71; RESP 13–16; TEMP 36.2–36.8; O2SAT 97–99
--- NOTE | 2018-12-01 00:23 | EKG12_ITS ---
Test Reason : CP Blood Pressure : / mmHG Vent. Rate : 068 BPM Atrial Rate : 068 BPM P-R Int : 188 ms QRS Dur : 154 ms QT Int : 482 ms P-R-T Axes : -13 023 006 degrees QTc Int : 512 ms Normal sinus rhythm Right bundle branch block Abnormal ECG When compared with ECG of 29-NOV-2018 23:19, MANUAL COMPARISON REQUIRED, DATA IS UNCONFIRMED Confirmed by ROCHELLE BRYSON, TONIA ([id number]), newspaper editor OPHELIA SIERRA ([id number]) on 12/05/2018 2:44:50 PM Referred By: DR RICHARDSON Confirmed By:TONIA BYRD MD
[2018-12-01 03:03] LABS: Absolute Lymphocyte Count 2.23 X10^3/ul (0.83-4.51); Absolute Neutrophil Count 4.6 X10^3/uL (2.0-7.7); Basophil# 0.06 X10^3/uL; Basophil% 0.8 % (0-1); Eosinophil# 0.13 X10^3/uL; Eosinophils% 1.8 % (0-5); Hemoglobin 9.1 g/dl (12.0-15.0); Lymphocyte # 2.23 X10^3/ul (4.0); Lymphocyte % 30.2 % (19-41); Mean Corp Hgb Conc 32.5 g/gl (32-36); Mean Corpuscular Hgb 33.8 pg (27.0-32.0); Mean Corpuscular Volume 104.1 fL (81-99); Mean Platelet Vol. 11.1 fl (6.2-12.0); Monocyte# 0.38 X10^3/uL; Monocyte% 5.1 % (0-10); Neutrophil # 4.57 X10^3/uL (2.7-7.7); Neutrophil % 61.8 % (47-70); Platelet Count 158 K/mm3 (150-450); RBC Distribution Width CV 17.2 % (11.6-14.6); RBC Distribution Width SD 64.1 fl (35.1-43.9); Red Blood Count 2.69 M/mm3 (4.2-5.4); White Blood Count 7.4 K/mm3 (4.4-11.0)
[2018-12-01 03:05] LABS: POSITIVE COUNT NO; POSITIVE DIFFERENTIAL NO; POSITIVE MORPHOLOGY YES
[2018-12-01 03:06] LABS: Differential Indicated SCAN CRITERIA MET
[2018-12-01 03:23] LABS: ALB/GLOB Ratio 0.7 RATIO (0.9-2.4); AST(SGOT) 42 U/L (15-37); Alanine Aminotransfer ALT/SGPT 22 U/L (13-56); Albumin, Serum 2.2 g/dL (3.2-5.0); Alkaline Phosphatase 168 U/L (45-117); Anion Gap 13 (5-15); BUN 128 mg/dL (7-18); BUN/Creat Ratio 38.2 RATIO (10-20); Calcium,Total 7.4 mg/dL (8.5-10.1); Chloride 106 mmol/L (98-107); Creatinine, Serum 3.35 mg/dL (0.55-1.02); EST Glomerular Filtration Rate 14 mL/min (>60); Est Glom Filt Rate - Afr Amer 17 mL/min (>60); Glucose 134 mg/dL (74-106); Magnesium 2.2 mg/dL (1.6-2.6); Potassium 4.5 mmol/L (3.5-5.1); Protein, Total 5.2 g/dL (6.4-8.2); Sodium Level 139 mmol/L (136-145)
[2018-12-01] MEDS: Acetaminophen 325 MG Tablet 650 MG PO ×3 (04:15→22:15)
--- NOTE | 2018-12-01 06:08 | PN.SURG_ITS ---
Patient Problems: Active and Suspected Problems (Last Reviewed 11/30/18 @ 02:27 by Pete Ramirez DO) JOSE (acute kidney injury) (Acute) GI bleed (Acute) Subjective: Pt comfortable, not much pain at catheter site - Physical Exam Lungs: - - Catheter site very clean and dry Vital Signs Temp Pulse Resp BP Pulse Ox 98.2 F 68 13 127/57 H 99 12/01/18 04:02 12/01/18 04:02 12/01/18 04:02 12/01/18 04:02 12/01/18 04:02 Oxygen Flow Rate (L/min) 2 Oxygen Delivery Method Nasal Cannula Weight: 176 lb 5.917 oz Body Mass Index (BMI) 32.2 Finger Stick Blood Glucose 159 Intake and Output for Last 24 Hours 11/29/18 11/30/18 12/01/18 23:59 23:59 23:59 Intake Total 2341 / 2341 100 / 100 Output Total 960 / 960 125 / 125 Balance 1381 / 1381 -25 / -25 Laboratory Tests Past 24 Hrs 11/30/18 11/30/18 11/30/18 00:39 06:25 06:25 WBC 8.9 RBC 2.36 L Hgb 8.2 L Hct 25.5 L MCV 108.1 H MCH 34.7 H MCHC 32.2 RDW 14.9 H RDW Differential 56.5 H Plt Count 209 MPV 11.0 Immature Gran % (Auto) 0.600 Neut % (Auto) 55.4 Lymph % (Auto) 35.4 [place] % (Auto) 5.4 Eos % (Auto) 2.4 Baso % (Auto) 0.8 Absolute Neuts (auto) 4.9 Absolute Lymphs (auto) 3.14 Total Counted Not Reportable Sodium 139 Potassium 4.0 Chloride 106 Carbon Dioxide 20.0 L Anion Gap 13 BUN 132 H* Creatinine 3.26 H Estim Creat Clear Calc 11.61 Est GFR (MDRD) Af Amer 18 L Est GFR (MDRD) Non-Af 15 L BUN/Creatinine Ratio 40.5 H Glucose 75 Calcium 7.6 L Magnesium Total Bilirubin AST ALT Alkaline Phosphatase Troponin I 0.054 H Total Protein Albumin Globulin Albumin/Globulin Ratio Crossmatch See Detail 12/01/18 12/01/18 02:30 02:30 WBC 7.4 RBC 2.69 L Hgb 9.1 L Hct 28.0 L MCV 104.1 H MCH 33.8 H MCHC 32.5 RDW 17.2 H RDW Differential 64.1 H Plt Count 158 MPV 11.1 Immature Gran % (Auto) 0.300 Neut % (Auto) 61.8 Lymph % (Auto) 30.2 [place]cl[place] % (Auto) 5.1 Eos % (Auto) 1.8 Baso % (Auto) 0.8 Absolute Neuts (auto) 4.6 Absolute Lymphs (auto) 2.23 Total Counted Not Reportable Sodium 139 Potassium 4.5 Chloride 106 Carbon Dioxide 20.0 L Anion Gap 13 BUN 128 H* Creatinine 3.35 H Estim Creat Clear Calc 11.30 Est GFR (MDRD) Af Amer 17 L Est GFR (MDRD) Non-Af 14 L BUN/Creatinine Ratio 38.2 H Glucose 134 H Calcium 7.4 L Magnesium 2.2 Total Bilirubin 0.90 AST 42 H ALT 22 Alkaline Phosphatase 168 H Troponin I Total Protein 5.2 L Albumin 2.2 L Globulin 3.0 Albumin/Globulin Ratio 0.7 L Crossmatch POC Glucose 11/30/18 11/30/18 11/30/18 21:23 15:59 11:07 POC Glucose 166 H 163 H 198 H 11/30/18 06:47 POC Glucose 72 Medical Necessity - Tobacco Use Smoking Status: Never smoker Tobacco Use: Non-smoker Assessment/Plan All Active Problems (Last Reviewed 11/30/18 @ 02:27 by Pete Ramirez DO) JOSE (acute kidney injury) (Acute) GI bleed (Acute) GI bleed (Acute) Acute coronary syndrome (Acute) Non-STEMI (non-ST elevated myocardial infarction) (Acute) Hypercholesterolemia (Acute) Congestive heart failure of unknown etiology (Acute) Abnormal EKG (Acute) Catheters in good position and ready for use
[2018-12-01 07:01] LABS: Bedside Glucose 110 mg/dL (70-110)
--- NOTE | 2018-12-01 08:23 | PN.RENAL_ITS ---
Patient Problems: Active and Suspected Problems (Last Reviewed 11/30/18 @ 02:27 by Pete Ramirez DO) JOSE (acute kidney injury) (Acute) GI bleed (Acute) Subjective: episode of chest tightness last night, shortness of breath. Renal fxn continues to decline. Has significant edema. Poor appetite. Discussed initiation of dialysis starting today with RIJ TDC placed last night. - Physical Exam General: Alert, Oriented x3, - - weak Oral: Dry Mucosa Lungs: Rales Cardiovascular: Regular rate, Rubs Abdomen: Bowel Sounds Present, Soft, Non Tender Extremities: Edema Musculoskeletal: - - generalized weakness Neurological: - - no tremor Psych/Mental Status: Normal Affect, Appropriate, Alert and oriented to time, place, person, mood and affect Vital Signs Temp Pulse Resp BP Pulse Ox 98.2 F 67 13 127/57 H 99 12/01/18 04:02 12/01/18 06:59 12/01/18 04:02 12/01/18 04:02 12/01/18 07:28 Oxygen Flow Rate (L/min) 2 Oxygen Delivery Method Nasal Cannula Weight: 80 kg Body Mass Index (BMI) 32.2 Finger Stick Blood Glucose 159 Intake and Output for Last 24 Hours 11/29/18 11/30/18 12/01/18 23:59 23:59 23:59 Intake Total 2341 / 2341 100 / 100 Output Total 960 / 960 125 / 125 Balance 1381 / 1381 -25 / -25 Laboratory Tests Past 24 Hrs 11/30/18 12/01/18 12/01/18 00:39 02:30 02:30 WBC 7.4 RBC 2.69 L Hgb 9.1 L Hct 28.0 L MCV 104.1 H MCH 33.8 H MCHC 32.5 RDW 17.2 H RDW Differential 64.1 H Plt Count 158 MPV 11.1 Immature Gran % (Auto) 0.300 Neut % (Auto) 61.8 Lymph % (Auto) 30.2 [place] % (Auto) 5.1 Eos % (Auto) 1.8 Baso % (Auto) 0.8 Absolute Neuts (auto) 4.6 Absolute Lymphs (auto) 2.23 Total Counted Not Reportable Sodium 139 Potassium 4.5 Chloride 106 Carbon Dioxide 20.0 L Anion Gap 13 BUN 128 H* Creatinine 3.35 H Estim Creat Clear Calc 11.30 Est GFR (MDRD) Af Amer 17 L Est GFR (MDRD) Non-Af 14 L BUN/Creatinine Ratio 38.2 H Glucose 134 H Calcium 7.4 L Magnesium 2.2 Total Bilirubin 0.90 AST 42 H ALT 22 Alkaline Phosphatase 168 H Total Protein 5.2 L Albumin 2.2 L Globulin 3.0 Albumin/Globulin Ratio 0.7 L Crossmatch See Detail POC Glucose 12/01/18 11/30/18 11/30/18 06:58 21:23 15:59 POC Glucose 110 166 H 163 H 11/30/18 11:07 POC Glucose 198 H Medical Necessity - Tobacco Use Smoking Status: Never smoker Tobacco Use: Non-smoker Assessment/Plan All Active Problems (Last Reviewed 11/30/18 @ 02:27 by Pete Ramirez DO) JOSE (acute kidney injury) (Acute) GI bleed (Acute) GI bleed (Acute) Acute coronary syndrome (Acute) Non-STEMI (non-ST elevated myocardial infarction) (Acute) Hypercholesterolemia (Acute) Congestive heart failure of unknown etiology (Acute) Abnormal EKG (Acute) 1. 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 Initiate dialysis today 2.5hrs, then Wednesday 3hrs, Sat 3.5hrs. Arrange outpt dialysis at [facility]. Hep panel today 2. s/p stent LAD, ACS last admit. 3. DM2 primary service mgmt 4. HTN stable 5. Acute GI bleed on plavix, ASA. Hgb 9.2g. PRBC yesterday. Check iron studies, start epo on dialysis. 6. Cellulitis RLE, possible calciphylaxis. Consider debridement, bx. 7. Hyperphosphatemia, continue to monitor 8. Metabolic acidosis correct with dialysis. Stop bicarb po
[2018-12-01 09:02] LABS: Ferritin 253 ng/mL (8-252); Iron 173 ug/dL (50-170)
--- NOTE | 2018-12-01 09:07 | CASEMGMT ---
DEVIN CM NOTE: Operative note for dialysis catheter placement faxed to [facility]. Libby SMITH RN CM
[2018-12-01] MEDS: Isosorbide Mononitrate 60 MG Tablet PO (09:23)
[2018-12-01] MEDS: Ranolazine 500 MG Tablet PO ×2 (09:23→22:15)
[2018-12-01] MEDS: hydrALAZINE 50 MG Tablet PO ×2 (09:23→22:14)
[2018-12-01] MEDS: Carvedilol 3.125 MG TABLET PO ×2 (09:24→22:14)
[2018-12-01] MEDS: Aspirin 81 MG TAB.CHEW PO (09:24)
[2018-12-01] MEDS: Pantoprazole Sodium 20 MG Tablet PO (09:24)
[2018-12-01] MEDS: azaTHIOprine 50 MG Tablet 100 MG PO (09:24)
[2018-12-01] MEDS: Clopidogrel Bisulfate 75 MG Tablet PO (09:24)
[2018-12-01] MEDS: Folic Acid/Vitamin B Comp W-C 1 Capsule 1 CAP PO (09:31)
--- NOTE | 2018-12-01 13:03 | PN_ITS ---
<Wendy Avliez - Last Filed: 12/01/18 13:03> Patient Problems: Active and Suspected Problems (Last Reviewed 11/30/18 @ 02:27 by Pete Ramirez DO) JOSE (acute kidney injury) (Acute) GI bleed (Acute) Subjective: Patient seen and examined. Complains of feeling puffy. Has increased shortness of breath while lying flat. Denies other current complaints. To undergo first dialysis treatment today. - Physical Exam General: Alert, Oriented x3, Cooperative HEENT: Atraumatic, PERRLA, EOMI, Normocephalic Neck: Supple, No JVD, Negative Carotid Bruits Lungs: Clear to auscultation, Diminished Cardiovascular: Regular rate, No murmurs Abdomen: Bowel Sounds Present, Soft, Non Tender, Non-Distended, Obese Extremities: No clubbing, No cyanosis, Edema - +2 pitting bilateral lower extremities, nonpitting bilateral upper extremities. Skin: No rashes, No breakdown Musculoskeletal: No Tenderness to Palpation of Joints or Extremities Neurological: Cranial nerves II-XII grossly intact, Neuro grossly intact Psych/Mental Status: Normal Affect, Appropriate Vital Signs Temp Pulse Resp BP Pulse Ox 97.6 F L 69 16 164/68 H 98 12/01/18 09:20 12/01/18 11:00 12/01/18 09:20 12/01/18 09:23 12/01/18 09:20 Oxygen Flow Rate (L/min) 2 Oxygen Delivery Method Nasal Cannula Weight: 176 lb 5.917 oz Body Mass Index (BMI) 32.2 Finger Stick Blood Glucose 159 Intake and Output for Last 24 Hours 11/29/18 11/30/18 12/01/18 23:59 23:59 23:59 Intake Total 2341 / 2341 100 / 100 Output Total 960 / 960 125 / 125 Balance 1381 / 1381 -25 / -25 Laboratory Tests Past 24 Hrs 11/30/18 12/01/18 12/01/18 00:39 02:30 02:30 WBC 7.4 RBC 2.69 L Hgb 9.1 L Hct 28.0 L MCV 104.1 H MCH 33.8 H MCHC 32.5 RDW 17.2 H RDW Differential 64.1 H Plt Count 158 MPV 11.1 Immature Gran % (Auto) 0.300 Neut % (Auto) 61.8 Lymph % (Auto) 30.2 [place] % (Auto) 5.1 Eos % (Auto) 1.8 Baso % (Auto) 0.8 Absolute Neuts (auto) 4.6 Absolute Lymphs (auto) 2.23 Total Counted Not Reportable Sodium 139 Potassium 4.5 Chloride 106 Carbon Dioxide 20.0 L Anion Gap 13 BUN 128 H* Creatinine 3.35 H Estim Creat Clear Calc 11.30 Est GFR (MDRD) Af Amer 17 L Est GFR (MDRD) Non-Af 14 L BUN/Creatinine Ratio 38.2 H Glucose 134 H Calcium 7.4 L Magnesium 2.2 Iron Ferritin Total Bilirubin 0.90 AST 42 H ALT 22 Alkaline Phosphatase 168 H Total Protein 5.2 L Albumin 2.2 L Globulin 3.0 Albumin/Globulin Ratio 0.7 L Crossmatch See Detail 12/01/18 02:30 WBC RBC Hgb Hct MCV MCH MCHC RDW RDW Differential Plt Count MPV Immature Gran % (Auto) Neut % (Auto) Lymph % (Auto) [place] % (Auto) Eos % (Auto) Baso % (Auto) Absolute Neuts (auto) Absolute Lymphs (auto) Total Counted Sodium Potassium Chloride Carbon Dioxide Anion Gap BUN Creatinine Estim Creat Clear Calc Est GFR (MDRD) Af Amer Est GFR (MDRD) Non-Af BUN/Creatinine Ratio Glucose Calcium Magnesium Iron 173 H Ferritin 253 H Total Bilirubin AST ALT Alkaline Phosphatase Total Protein Albumin Globulin Albumin/Globulin Ratio Crossmatch POC Glucose 12/01/18 11/30/18 11/30/18 06:58 21:23 15:59 POC Glucose 110 166 H 163 H Medical Necessity - Tobacco Use Smoking Status: Never smoker Tobacco Use: Non-smoker Assessment/Plan All Active Problems (Last Reviewed 11/30/18 @ 02:27 by Pete Ramirez DO) JOSE (acute kidney injury) (Acute) GI bleed (Acute) GI bleed (Acute) Acute coronary syndrome (Acute) Non-STEMI (non-ST elevated myocardial infarction) (Acute) Hypercholesterolemia (Acute) Congestive heart failure of unknown etiology (Acute) Abnormal EKG (Acute) 1. Acute kidney injury on chronic kidney disease stage IV-nephrology, Dr. Pearson following. Right IJ catheter placed yesterday by Dr. Lawrence. To undergo dialysis today and then daily for a total of 3 days. 2. Acute blood loss anemia secondary to GI bleed as result of external hemorrhoids-patient received 1 unit PRBC. Hemoglobin stable. To receive EPO with dialysis. 3. Elevated troponin, history of CAD with multiple stents-cardiology following. Plan is to stabilize patient from renal standpoint and reevaluate angioplasty/stent as outpatient. Continue medical management. Continue aspirin, statin, Plavix, carvedilol. Patient is on Ranexa as well. 4. Chronic diastolic CHF-recent echocardiogram with EF 50%. Diuretic regimen on hold secondary #1. 5. 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 Wound care consulted. Doxycycline held on admission. 6. Type 2 diabetes [id number] ACHS with sliding scale insulin and Lantus regimen. 7. Hypomagnesemia-replaced per protocol. Resolved. 8. Autoimmune hepatitis-patient on Imuran and budesonide. Follows with Dr. Taylor. 9. Hypertension-continue carvedilol, Imdur, hydralazine regimen. 10. Hyperlipidemia-continue statin. 11. GERD-continue PPI. DVT prophylaxis-SCDs This patient was seen by RAMÍREZ Gottlieb under the supervision of Dr. Mcallister. <Mart Mcallister - Last Filed: 12/01/18 16:39> - Physical Exam Vital Signs Temp Pulse Resp BP Pulse Ox 97.6 F L 66 16 164/68 H 98 12/01/18 09:20 12/01/18 15:00 12/01/18 09:20 12/01/18 09:23 12/01/18 09:20 Oxygen Flow Rate (L/min) 2 Oxygen Delivery Method Nasal Cannula Weight: 80 kg Body Mass Index (BMI) 32.2 Finger Stick Blood Glucose 159 Intake and Output for Last 24 Hours 11/29/18 11/30/18 12/01/18 23:59 23:59 23:59 Intake Total 2341 / 2341 300 / 300 Output Total 960 / 960 225 / 225 Balance 1381 / 1381 75 / 75 Laboratory Tests Past 24 Hrs 11/30/18 12/01/18 12/01/18 00:39 02:30 02:30 WBC 7.4 RBC 2.69 L Hgb 9.1 L Hct 28.0 L MCV 104.1 H MCH 33.8 H MCHC 32.5 RDW 17.2 H RDW Differential 64.1 H Plt Count 158 MPV 11.1 Immature Gran % (Auto) 0.300 Neut % (Auto) 61.8 Lymph % (Auto) 30.2 [place] % (Auto) 5.1 Eos % (Auto) 1.8 Baso % (Auto) 0.8 Absolute Neuts (auto) 4.6 Absolute Lymphs (auto) 2.23 Total Counted Not Reportable Sodium 139 Potassium 4.5 Chloride 106 Carbon Dioxide 20.0 L Anion Gap 13 BUN 128 H* Creatinine 3.35 H Estim Creat Clear Calc 11.30 Est GFR (MDRD) Af Amer 17 L Est GFR (MDRD) Non-Af 14 L BUN/Creatinine Ratio 38.2 H Glucose 134 H Calcium 7.4 L Magnesium 2.2 Iron Ferritin Total Bilirubin 0.90 AST 42 H ALT 22 Alkaline Phosphatase 168 H Total Protein 5.2 L Albumin 2.2 L Globulin 3.0 Albumin/Globulin Ratio 0.7 L Hep Bs Antigen Hep Bs Antibody Hep B Core Total Ab Crossmatch See Detail 12/01/18 12/01/18 02:30 12:45 WBC RBC Hgb Hct MCV MCH MCHC RDW RDW Differential Plt Count MPV Immature Gran % (Auto) Neut % (Auto) Lymph % (Auto) [place] % (Auto) Eos % (Auto) Baso % (Auto) Absolute Neuts (auto) Absolute Lymphs (auto) Total Counted Sodium Potassium Chloride Carbon Dioxide Anion Gap BUN Creatinine Estim Creat Clear Calc Est GFR (MDRD) Af Amer Est GFR (MDRD) Non-Af BUN/Creatinine Ratio Glucose Calcium Magnesium Iron 173 H Ferritin 253 H Total Bilirubin AST ALT Alkaline Phosphatase Total Protein Albumin Globulin Albumin/Globulin Ratio Hep Bs Antigen Pending Hep Bs Antibody Pending Hep B Core Total Ab Pending Crossmatch POC Glucose 12/01/18 11/30/18 06:58 21:23 POC Glucose 110 166 H Assessment/Plan This patient was seen in conjunction with RAMÍREZ Gottlieb . I have independently interviewed and examined the patient and reviewed pertinent historical, laboratory, and other data. Please refer to RAMÍREZ Gottlieb note for details of this patient's presentation, findings, and recommendations. I have reviewed RAMÍREZ Gottlieb note and concur with documented findings. In brief, patient is a 78-year-old lady with poor comorbidities admitted with exertional dyspnea; intermittent hematochezia. Patient was found to have worsening kidney function with BUN greater than 130 on admission admitted to a monitored bed for subsequent management 12/01/2018: Patient was seen in consultation by Dr. Brenda Pearson with nephrology recommended for patient to undergo IV access for dialysis. IV Dialysis access was placed by Dr. Lawrence on 11/30/2018. Patient to start dialysis on 11/11/2018 Physical Examination: GENERAL: cooperative HEENT: Atraumatic; EYES; Anicteric, NECK; supple, normal thyroid, RESPIRATORY: Diminished to auscultation bilaterally, CARDIOVASCULAR: Regular S1 S2, no audible murmurs GI: soft, non-tender, normoactive bowel sounds, : No Renal angle tenderness; NEURO: Awake; no lateralizing signs. SKIN: No Rash PSYCH; Normal affect Assessment: 1. Acute kidney injury in the setting of chronic kidney disease stage IV dialysis initiated on 12/01/2018 2. Anemia secondary to acute blood loss anemia 3. CAD with multiple stents placement in the past 4. Elevated troponin ; cardiology consulted 5. Congestive heart failure with preserved ejection fraction 6. Diabetes mellitus type 2 7. 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 Hypomagnesemia 9. Autoimmune hepatitis patient is on Azathioprine (Imuran) as well as budesonide: Followed by Dr. Taylor as outpatient 10. Essential hypertension 11. GERD on Protonix 12. DVT prophylaxis: SCDs. Recommendations: 1. I have discussed the results of my overview and impressions with the patient 2. Options for management were reviewed Code Visit Inpatient E&M: 14138 Subs Hosp L3
[2018-12-01] MEDS: Glucerna Shake 120 ML LIQUID PO (14:35)
[2018-12-01 17:05] LABS: Bedside Glucose 156 mg/dL (70-110)
[2018-12-01 17:10] LABS: Bedside Glucose 91 mg/dL (70-110)
[2018-12-01] MEDS: Insulin Lispro 100 UNIT/ML INSULN.PEN SC (22:14)
[2018-12-01 23:10] LABS: Bedside Glucose 154 mg/dL (70-110)
[2018-12-02] VITALS (11 sets, daily range): BP systolic 130–184; BP diastolic 48–80; PULSE 65–77; RESP 13–20; TEMP 36.5–37.1; O2SAT 98
[2018-12-02] MEDS: Acetaminophen 325 MG Tablet 650 MG PO ×4 (04:44→22:02)
[2018-12-02 05:07] LABS: HEPATITIS B SURFACE AG Negative (Negative)
[2018-12-02 06:50] LABS: Bedside Glucose 105 mg/dL (70-110)
[2018-12-02 07:38] LABS: Hematocrit 26.5 % (37-47); Hemoglobin 8.6 g/dl (12.0-15.0); Mean Corp Hgb Conc 32.5 g/gl (32-36); Mean Corpuscular Hgb 34.1 pg (27.0-32.0); Mean Corpuscular Volume 105.2 fL (81-99); Mean Platelet Vol. 11.4 fl (6.2-12.0); Platelet Count 116 K/mm3 (150-450); RBC Distribution Width CV 16.6 % (11.6-14.6); RBC Distribution Width SD 62.5 fl (35.1-43.9); Red Blood Count 2.52 M/mm3 (4.2-5.4); White Blood Count 6.9 K/mm3 (4.4-11.0)
[2018-12-02 07:41] LABS: Scan Indicated on CBC? Y/N NO
[2018-12-02 08:14] LABS: Hep B Surface Antibodies Non Reactive (.); Hepatitis B Core Ab Total Negative (Negative)
[2018-12-02 08:17] LABS: Albumin, Serum 2.1 g/dL (3.2-5.0); BUN 78 mg/dL (7-18); BUN/Creat Ratio 31.5 RATIO (10-20); Calcium,Total 7.3 mg/dL (8.5-10.1); Chloride 103 mmol/L (98-107); Creatinine, Serum 2.48 mg/dL (0.55-1.02); EST Glomerular Filtration Rate 20 mL/min (>60); Est Glom Filt Rate - Afr Amer 24 mL/min (>60); Estimated Creatinine Clearance 15.26 ml/min; Glucose 111 mg/dL (74-106); Phosphorus 4.3 mg/dL (2.5-4.9); Sodium Level 134 mmol/L (136-145)
--- NOTE | 2018-12-02 09:55 | CASEMGMT ---
Hep panel obtained and faxed to [facility] at this time along with 1st dialysis flow sheet. Call to Kimmy at [facility] and aware of faxed info at this time. Per Kimmy, they do have pt set up for [facility] but precert is pending and they cannot give me a chair time yet. Therapy is recommending further skilled therapy at this time. This RN APPLE spoke with pt and and pt declines SNF at this time. Pt does not qualify for [facility] at this time because she will be going to dialysis. Pt/ are agreeable to OP therapy at this time and referral faxed to [facility] at this time. OP therapy script to . Pt/ also updated on dialysis referral at this time, voices understanding. Pt/ voice no further questions/concerns/needs at this time. SStalex BELTRAN CM
--- NOTE | 2018-12-02 10:00 | PN.CARD_ITS ---
Subjectve: Patient denies any chest pain overnight. Patient had dialysis yesterday and had no anginal symptoms during dialysis. Telemetry shows normal sinus rhythm, right bundle branch block, no ventricular tachycardia. His main complaint is her pain in her right lower extremity. Additional dialysis pending for today. Objective: Vital Signs Temp Pulse Resp BP Pulse Ox 98.7 F 68 13 130/48 H 98 12/02/18 04:32 12/02/18 06:56 12/02/18 04:32 12/02/18 04:32 12/02/18 04:32 Oxygen Flow Rate (L/min) 2 Oxygen Delivery Method Nasal Cannula Weight: 176 lb 5.917 oz Body Mass Index (BMI) 32.2 Finger Stick Blood Glucose 159 Intake and Output for Last 24 Hours 11/30/18 12/01/18 12/02/18 23:59 23:59 23:59 Intake Total 2341 / 2341 540 / 540 190 / 190 Output Total 960 / 960 350 / 350 75 / 75 Balance 1381 / 1381 190 / 190 115 / 115 General: Awake, Alert, Oriented x 3 HEENT: PERRL, EOMI, Sclera Non Icteric Neck: Supple, Good ROM, No Lymph Node Enlargement Lungs: Clear to auscultation Cardiovascular: Regular Rhythm, Normal S1, Normal S2, No Murmurs, No Rubs, No Gallops Vascular: No Carotid Bruits, Normal Femoral Pulses, Normal Radial Pulses, Normal Dorsalis Pedal Pulse, Normal Posterior Tibial Pulses Abdomen: Bowel Sounds Present, Soft, Non Tender, No HSM, No Organomegaly Extremities: No Cyanosis, No Clubbing, No edema Neurological: No Focal Motor or Sensory Deficit 12/02/18 06:43: Sodium 134 L, Potassium 4.0, Chloride 103, Carbon Dioxide 23.0, BUN 78 H, Creatinine 2.48 H, Est GFR (MDRD) Af Amer 24 L, Est GFR (MDRD) Non-Af 20 L, BUN/Creatinine Ratio 31.5 H, Glucose 111 H, Calcium 7.3 L, Phosphorus 4.3 12/02/18 06:43: WBC 6.9, RBC 2.52 L, Hgb 8.6 L, Hct 26.5 L, MCV 105.2 H, MCH 34.1 H, MCHC 32.5, RDW 16.6 H, RDW Differential 62.5 H, Plt Count 116 L, MPV 11.4 Rhythm: EKG: ECHO: Stress Test: Cardiac Cath: PCI: CT Surgery: Holter monitor: EPS: PPM: CXR: Chest CT Scan: Medical Necessity - Tobacco Use Smoking Status: Never smoker Tobacco Use: Non-smoker Assessment/Plan 1. Coronary artery disease: Patient has been found to have significant multivessel coronary disease which does not appear to be amenable to surgical revascularization superimposed on mild LV dysfunction with an EF of 50% and at least moderate pulmonary hypertension with an RVSP of 40 mmHg on recent echocardiogram. Patient underwent a staged and limited angioplasty and stenting of her proximal and mid LAD with balloon angioplasty only of a small diagonal branch which was too small to stent. She has remaining coronary artery disease downstream from a severely calcified right coronary artery in both her PDA and posterior lateral branches which were going to be left for later once her hemoglobin and creatinine stabilized. The patient now returns with recurrent lower GI bleeding, anemia requiring blood transfusion for a second time, and worsening renal insufficiency. At this point I would not recommend repeat catheterization or additional angioplasty and stenting as she has no acute EKG changes or abnormal troponin releases or arrhythmias which would mandate this in the near term. The patient needs to stay on both baby aspirin and Plavix given her recent drug- eluting stents to her LAD. Would recommend keeping her hemoglobin above at least 9.0 and preferably 10.0 as the patient appears to do better with this. Hemoglobin today is 8.6. Hopefully with dialysis today and fluid removal she will hemoconcentrated above 9.0. At this point we will discontinue her atenolol as this may be contributing to her overall fatigue, and switch her to Coreg which is processed in the serum, and may have decreased side effects with respect to her high dose Toprol. Patient complained of significant fatigue and tiredness which may be a side effect of this medication. Recommend continuing her nose seen for right now as this has little downside given her diffuse coronary artery disease. I am very pleased to see that the patient has started hemodialysis, and that she has had no anginal symptoms during dialysis which may be an ischemic test for her coronary artery disease. Recommend continuing baby aspirin Plavix and hemodialysis until she is reached euvolemia. I believe this will also assist with healing of her right lower extremity. Would also recommend erythropoietin per protocol to assist with hemoglobin regeneration. Once the patient has been stabilized on dialysis and demonstrates no additional upper or lower GI bleeding, we will then consider proceeding with angioplasty and stenting in several weeks time of her PDA and posterior lateral branches. Would not recommend stress testing at this time given her current condition. 2. Hyperlipidemia: Patient complains of diffuse myalgias and will hold on statin based medications at this time. 3. Thank you very much for the opportunity to participate in the cardiac care of your patient. Code Visit Inpatient E&M: 19135 Subs Hosp L2
[2018-12-02] MEDS: Nepro Liquid 120 ML LIQUID PO ×3 (10:11→22:02)
[2018-12-02] MEDS: Insulin Lispro 100 UNIT/ML INSULN.PEN SC (12:25)
[2018-12-02 12:30] LABS: Bedside Glucose 226 mg/dL (70-110)
--- NOTE | 2018-12-02 13:25 | PN_ITS ---
<Wendy Avilez - Last Filed: 12/02/18 13:26> Patient Problems: Active and Suspected Problems (Last Reviewed 11/30/18 @ 02:27 by Pete Ramirez DO) JOSE (acute kidney injury) (Acute) GI bleed (Acute) Subjective: Patient seen and examined. Complains of generalized weakness and fatigue. States she is not sleeping well. Denies other specific complaints. - Physical Exam General: Alert, Oriented x3, Cooperative HEENT: Atraumatic, PERRLA, EOMI, Normocephalic Neck: Supple, No JVD, Negative Carotid Bruits Lungs: Clear to auscultation, Diminished Cardiovascular: Regular rate, No murmurs Abdomen: Bowel Sounds Present, Soft, Non Tender, Non-Distended Extremities: No clubbing, No cyanosis, Edema - +2 pitting bilateral lower ext remities, nonpitting bilateral upper extremities. Skin: No rashes, No breakdown Musculoskeletal: No Tenderness to Palpation of Joints or Extremities Neurological: Cranial nerves II-XII grossly intact, Neuro grossly intact Psych/Mental Status: Flat Affect Vital Signs Temp Pulse Resp BP Pulse Ox 97.7 F L 70 18 130/50 H 98 12/02/18 10:10 12/02/18 11:00 12/02/18 10:10 12/02/18 10:10 12/02/18 10:10 Oxygen Flow Rate (L/min) 2 Oxygen Delivery Method Room Air Weight: 176 lb 5.917 oz Body Mass Index (BMI) 32.2 Finger Stick Blood Glucose 159 Intake and Output for Last 24 Hours 11/30/18 12/01/18 12/02/18 23:59 23:59 23:59 Intake Total 2341 / 2341 540 / 540 690 / 690 Output Total 960 / 960 350 / 350 175 / 175 Balance 1381 / 1381 190 / 190 515 / 515 Laboratory Tests Past 24 Hrs 12/01/18 12/02/18 12/02/18 12:45 06:43 06:43 WBC 6.9 RBC 2.52 L Hgb 8.6 L Hct 26.5 L MCV 105.2 H MCH 34.1 H MCHC 32.5 RDW 16.6 H RDW Differential 62.5 H Plt Count 116 L MPV 11.4 Sodium 134 L Potassium 4.0 Chloride 103 Carbon Dioxide 23.0 BUN 78 H Creatinine 2.48 H Estim Creat Clear Calc 15.26 Est GFR (MDRD) Af Amer 24 L Est GFR (MDRD) Non-Af 20 L BUN/Creatinine Ratio 31.5 H Glucose 111 H Calcium 7.3 L Phosphorus 4.3 Albumin 2.1 L Hep Bs Antigen Negative Hep Bs Antibody Non Reactive Hep B Core Total Ab Negative POC Glucose 12/02/18 12/02/18 12/01/18 12:24 04:44 22:08 POC Glucose 226 H 105 154 H 12/01/18 12/01/18 17:08 12:27 POC Glucose 91 156 H Medical Necessity - Tobacco Use Smoking Status: Never smoker Tobacco Use: Non-smoker Assessment/Plan All Active Problems (Last Reviewed 11/30/18 @ 02:27 by Pete Ramirez DO) JOSE (acute kidney injury) (Acute) GI bleed (Acute) GI bleed (Acute) Acute coronary syndrome (Acute) Non-STEMI (non-ST elevated myocardial infarction) (Acute) Hypercholesterolemia (Acute) Congestive heart failure of unknown etiology (Acute) Abnormal EKG (Acute) 1. Acute kidney injury on chronic kidney disease stage IV-nephrology, Dr. Pearson following. Right IJ catheter placed 11/30/[address] Lawrence. To undergo dialysis again today and then again tomorrow for a total of 3 days. Trend BMP. 2. Acute blood loss anemia secondary to GI bleed as result of external hemorrhoids-patient received 1 unit PRBC. Hemoglobin stable. To receive EPO with dialysis. 3. Elevated troponin, history of CAD with multiple stents-cardiology following. Plan is to stabilize patient from renal standpoint and reevaluate angioplast y/stent as outpatient. Continue medical management. Continue aspirin, statin, Plavix, carvedilol. Patient is on Ranexa as well. 4. Chronic diastolic CHF-recent echocardiogram with EF 50%. Diuretic regimen on hold secondary #1. 5. 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 Wound care consulted. Doxycycline held on admission. 6. Type 2 diabetes [id number] ACHS with sliding scale insulin and Lantus regimen. 7. Hypomagnesemia-replaced per protocol. Resolved. 8. Autoimmune hepatitis-patient on Imuran and budesonide. Follows with Dr. Taylor. 9. Hypertension-continue carvedilol, Imdur, hydralazine regimen. 10. Hyperlipidemia-continue statin. 11. GERD-continue PPI. DVT prophylaxis-SCDs Discharge planning: PT recommending SNF however patient declines at this time. Plan for outpatient therapy at [place]. Possible DC tomorrow following dialysis. This patient was seen by RAMÍREZ Gottlieb under the supervision of Dr. Mcallister. <Mart Mcallister - Last Filed: 12/02/18 14:23> - Physical Exam Vital Signs Temp Pulse Resp BP Pulse Ox 97.7 F L 70 18 130/50 H 98 12/02/18 10:10 12/02/18 11:00 12/02/18 10:10 12/02/18 10:10 12/02/18 10:10 Oxygen Flow Rate (L/min) 2 Oxygen Delivery Method Room Air Weight: 80 kg Body Mass Index (BMI) 32.2 Finger Stick Blood Glucose 159 Intake and Output for Last 24 Hours 11/30/18 12/01/18 12/02/18 23:59 23:59 23:59 Intake Total 2341 / 2341 540 / 540 690 / 690 Output Total 960 / 960 350 / 350 175 / 175 Balance 1381 / 1381 190 / 190 515 / 515 Laboratory Tests Past 24 Hrs 12/01/18 12/02/18 12/02/18 12:45 06:43 06:43 WBC 6.9 RBC 2.52 L Hgb 8.6 L Hct 26.5 L MCV 105.2 H MCH 34.1 H MCHC 32.5 RDW 16.6 H RDW Differential 62.5 H Plt Count 116 L MPV 11.4 Sodium 134 L Potassium 4.0 Chloride 103 Carbon Dioxide 23.0 BUN 78 H Creatinine 2.48 H Estim Creat Clear Calc 15.26 Est GFR (MDRD) Af Amer 24 L Est GFR (MDRD) Non-Af 20 L BUN/Creatinine Ratio 31.5 H Glucose 111 H Calcium 7.3 L Phosphorus 4.3 Albumin 2.1 L Hep Bs Antigen Negative Hep Bs Antibody Non Reactive Hep B Core Total Ab Negative POC Glucose 12/02/18 12/02/18 12/01/18 12:24 04:44 22:08 POC Glucose 226 H 105 154 H 12/01/18 12/01/18 17:08 12:27 POC Glucose 91 156 H Assessment/Plan This patient was seen in conjunction with RAMÍREZ Gottlieb . I have independently interviewed and examined the patient and reviewed pertinent historical, laboratory, and other data. Please refer to RAMÍREZ Gottlieb note for details of this patient's presentation, findings, and recommendations. I have reviewed RAMÍREZ Gottlieb note and concur with documented findings. In brief, patient is a 78-year-old lady with poor comorbidities admitted with exertional dyspnea; intermittent hematochezia. Patient was found to have worsening kidney function with BUN greater than 130 on admission admitted to a monitored bed for subsequent management 12/01/2018: Patient was seen in consultation by Dr. Brenda Pearson with nephrology recommended for patient to undergo IV access for dialysis. IV Dialysis access was placed by Dr. Lawrence on 11/30/2018. Patient to start dialysis on 11/11/2018 12/02/2018 patient had his second session of dialysis Physical Examination: GENERAL: cooperative HEENT: Atraumatic; EYES; Anicteric, NECK; supple, normal thyroid, RESPIRATORY: Diminished to auscultation bilaterally, CARDIOVASCULAR: Regular S1 S2, no audible murmurs GI: soft, non-tender, normoactive bowel sounds, : No Renal angle tenderness; NEURO: Awake; no lateralizing signs. SKIN: No Rash PSYCH; Normal affect Assessment: 1. Acute kidney injury in the setting of chronic kidney disease stage IV dialysis initiated on 12/01/2018 2. Anemia secondary to acute blood loss anemia 3. CAD with multiple stents placement in the past 4. Elevated troponin ; cardiology consulted 5. Congestive heart failure with preserved ejection fraction 6. Diabetes mellitus type 2 7. 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 Hypomagnesemia 9. Autoimmune hepatitis patient is on Azathioprine (Imuran) as well as budesonide: Followed by Dr. Taylor as outpatient 10. Essential hypertension 11. GERD on Protonix 12. DVT prophylaxis: SCDs. Recommendations: 1. I have discussed the results of my overview and impressions with the patient 2. Options for management were reviewed Code Visit Inpatient E&M: 58441 Subs Hosp L2
--- NOTE | 2018-12-02 14:32 | PN.RENAL_ITS ---
Patient Problems: Active and Suspected Problems (Last Reviewed 11/30/18 @ 02:27 by Pete Ramirez DO) JOSE (acute kidney injury) (Acute) GI bleed (Acute) Subjective: Denies chest pain. Shortness of breath improved. Left lower extremity edema persists. Complains of right lower extremity pain. Pedal pulse intact on the right. Continues to have cellulitis with eschar. Blood pressure dropped into the 60s with fluid removal on hemodialysis last night. She is due for her next dialysis today and then tomorrow. Await chronic dialysis schedule on discharge. at bedside - Physical Exam General: Alert, Oriented x3, Cooperative, No apparent distress Oral: Dry Mucosa Lungs: Rales Cardiovascular: Regular rate, Murmur Abdomen: Bowel Sounds Present, Soft, Non Tender, Non-Distended Extremities: Edema Skin: Ulcer/ Wound - Right lower extremity Psych/Mental Status: Normal Affect, Appropriate, Alert and oriented to time, place, person, mood and affect Vital Signs Temp Pulse Resp BP Pulse Ox 97.7 F L 70 18 130/50 H 98 12/02/18 10:10 12/02/18 11:00 12/02/18 10:10 12/02/18 10:10 12/02/18 10:10 Oxygen Flow Rate (L/min) 2 Oxygen Delivery Method Room Air Weight: 80 kg Body Mass Index (BMI) 32.2 Finger Stick Blood Glucose 159 Intake and Output for Last 24 Hours 11/30/18 12/01/18 12/02/18 23:59 23:59 23:59 Intake Total 2341 / 2341 540 / 540 690 / 690 Output Total 960 / 960 350 / 350 175 / 175 Balance 1381 / 1381 190 / 190 515 / 515 Laboratory Tests Past 24 Hrs 12/01/18 12/02/18 12/02/18 12:45 06:43 06:43 WBC 6.9 RBC 2.52 L Hgb 8.6 L Hct 26.5 L MCV 105.2 H MCH 34.1 H MCHC 32.5 RDW 16.6 H RDW Differential 62.5 H Plt Count 116 L MPV 11.4 Sodium 134 L Potassium 4.0 Chloride 103 Carbon Dioxide 23.0 BUN 78 H Creatinine 2.48 H Estim Creat Clear Calc 15.26 Est GFR (MDRD) Af Amer 24 L Est GFR (MDRD) Non-Af 20 L BUN/Creatinine Ratio 31.5 H Glucose 111 H Calcium 7.3 L Phosphorus 4.3 Albumin 2.1 L Hep Bs Antigen Negative Hep Bs Antibody Non Reactive Hep B Core Total Ab Negative POC Glucose 12/02/18 12/02/18 12/01/18 12:24 04:44 22:08 POC Glucose 226 H 105 154 H 12/01/18 12/01/18 17:08 12:27 POC Glucose 91 156 H Medical Necessity - Tobacco Use Smoking Status: Never smoker Tobacco Use: Non-smoker Assessment/Plan All Active Problems (Last Reviewed 11/30/18 @ 02:27 by Pete Ramirez DO) JOSE (acute kidney injury) (Acute) GI bleed (Acute) GI bleed (Acute) Acute coronary syndrome (Acute) Non-STEMI (non-ST elevated myocardial infarction) (Acute) Hypercholesterolemia (Acute) Congestive heart failure of unknown etiology (Acute) Abnormal EKG (Acute) 1. 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 Pt oligoanuric. Will dc magana. Hypotensive with floyd tment yesterday with systolic at 60. No fluid removed for this reason. Hemodialysis #2 today we will see how she does with this. Hydralazine discontinued. All blood pressure meds on hold until after dialysis for today. Next dialysis on Wednesday a.m. prior to discharge. He she has a chronic spot at [facility] [place] every Wednesday, , Wednesday at 11:40 AM. 2. s/p stent LAD, ACS last admit. 3. DM2 primary service mgmt 4. HTN stable 5. Acute GI bleed on plavix, ASA. iron studies adequate. Continue ESTEPHANIE therapy on dialysis.. 6. Cellulitis RLE continue with wound care 7. Moderate protein calorie malnutrition albumin 2.2. Recommend protein supplements on discharge to home. 8. Debility outpatient physical therapy arranged. Patient declined ECF placement. Addendum 1700: pt with hypotension on dialysis today with SBP in the 80's 15min into tx, set for 1L fluid removal. Received 200cc fluid bolus and changed to run even. Complains of shortness of breath. Oxygen applied. Will hold on fluid removal. DW dialysis nurse and cardiology.
--- NOTE | 2018-12-02 14:41 | VDUE_ITS ---
Reason For Study: Possible AVF placement Right Arm Left Arm Right Cephalic Vein at the wrist Left Cephalic Vein at the wrist measures .18 measures .16 x .18 cm. x .17 cm. Cephalic vein is partially compressible with Left Cephalic Vein in the forearm bright intraluminal echoes from mid forearm measures .17 x .18 cm. to mid bicep. Left Cephalic Vein below antecub Right Cephalic Vein at the shoulder measures .23 x .25 cm. measures .19 x .22 cm. Left Cephalic Vein above antecub Right Basilic Vein at the origin measures .25 x .24 cm. measures .40 x .39 cm. Left Cephalic Vein at mid bicep measures .20 Right Basilic Vein mid bicep measures .24 x .20 cm. x .25 cm. Left Cephalic Vein at the shoulder Right Basilic Vein above antecub measures .20 x .20 cm. measures .22 x .25 cm. Basilic vein at origin measures .36 x .36 RT Brachial artery - .35 x .31 cm with a cm. velcoity of 109 cm/s Basilic vein at bicep measures .36 x .35 cm. RT Radial artery - .13 x .17 cm with a Basilic vein above antecub measures .31 velocity of 112 cm/s. x .30 cm. LT Brachial artery - .37 x .39 cm with a velocity of 115 cm/s LT Radial artery - .18 x .18 cm with a velocity of 112 cm/s. Interpretation Summary Superficial thrombophlebitis right cephalic vein mid forearm to mid upper arm Patent and compressible right upper arm basilic vein Diminutive left cephalic vein Patent and compressible left upper arm basilic vein Small bilateral radial arteries Adequate bilateral brachial arteries. Ordering Physician: Irma Pearson Referring Physician: Taylor Alvarenga M.D. Performed By: Jody, Giselle, RVT ?
--- NOTE | 2018-12-02 15:47 | CASEMGMT ---
Per Dr. Pearson, she was told that pt would have a T/Th/Sat 1140am chair time and she called and verified with Beck, the nursing clinical director, that pt does have this chair time at this time. This RN CM has not received call or approval letter from [employer] at this time and message was left with Kimmy regarding same. This RN CM did call [facility] at this time to see if they had received official approval from insurance and she states that she will check and leave message for this RN CM. Pt/ updated on all at this time, voice understanding. Julio César RN CM
[2018-12-02 17:16] LABS: Bedside Glucose 105 mg/dL (70-110)
[2018-12-02] MEDS: Aspirin 81 MG TAB.CHEW PO (20:45)
[2018-12-02] MEDS: Pantoprazole Sodium 20 MG Tablet PO (20:46)
[2018-12-02] MEDS: azaTHIOprine 50 MG Tablet 100 MG PO (20:46)
[2018-12-02] MEDS: Clopidogrel Bisulfate 75 MG Tablet PO (20:46)
[2018-12-02] MEDS: Folic Acid/Vitamin B Comp W-C 1 Capsule 1 CAP PO (20:46)
--- NOTE | 2018-12-02 20:47 | NURSING ---
OK to given AM meds per MD
[2018-12-02] MEDS: Ranolazine 500 MG Tablet PO (22:02)
[2018-12-02 22:11] LABS: Bedside Glucose 133 mg/dL (70-110)
[2018-12-03] VITALS (16 sets, daily range): BP systolic 118–160; BP diastolic 54–75; PULSE 71–84; RESP 16–19; TEMP 36.4–36.9; O2SAT 92–98
[2018-12-03 00:36] LABS: Bedside Glucose 116 mg/dL (70-110)
[2018-12-03] MEDS: Acetaminophen 325 MG Tablet 650 MG PO ×4 (04:43→22:00)
[2018-12-03 07:05] LABS: Bedside Glucose 86 mg/dL (70-110)
[2018-12-03 07:05] LABS: Bedside Glucose 68 mg/dL (70-110)
[2018-12-03 07:32] LABS: Hematocrit 25.9 % (37-47); Hemoglobin 8.6 g/dl (12.0-15.0); Mean Corp Hgb Conc 33.2 g/gl (32-36); Mean Corpuscular Hgb 35.7 pg (27.0-32.0); Mean Corpuscular Volume 107.5 fL (81-99); Mean Platelet Vol. 11.5 fl (6.2-12.0); Platelet Count 88 K/mm3 (150-450); RBC Distribution Width CV 15.8 % (11.6-14.6); RBC Distribution Width SD 59.7 fl (35.1-43.9); Red Blood Count 2.41 M/mm3 (4.2-5.4); White Blood Count 7.1 K/mm3 (4.4-11.0)
[2018-12-03 07:35] LABS: Scan Indicated on CBC? Y/N NO
[2018-12-03 07:48] LABS: Anion Gap 7 (5-15); BUN 43 mg/dL (7-18); BUN/Creat Ratio 23.4 RATIO (10-20); Calcium,Total 7.3 mg/dL (8.5-10.1); Chloride 102 mmol/L (98-107); Creatinine, Serum 1.84 mg/dL (0.55-1.02); EST Glomerular Filtration Rate 28 mL/min (>60); Est Glom Filt Rate - Afr Amer 34 mL/min (>60); Estimated Creatinine Clearance 20.57 ml/min; Glucose 65 mg/dL (74-106); Potassium 3.9 mmol/L (3.5-5.1); Sodium Level 136 mmol/L (136-145)
[2018-12-03] MEDS: azaTHIOprine 50 MG Tablet 100 MG PO (09:26)
[2018-12-03] MEDS: Clopidogrel Bisulfate 75 MG Tablet PO (09:26)
[2018-12-03] MEDS: Ranolazine 500 MG Tablet PO ×2 (09:26→21:59)
[2018-12-03] MEDS: Aspirin 81 MG TAB.CHEW PO (09:26)
[2018-12-03] MEDS: Pantoprazole Sodium 20 MG Tablet PO (09:26)
[2018-12-03] MEDS: Nepro Liquid 120 ML LIQUID PO ×3 (09:31→22:00)
[2018-12-03] MEDS: Folic Acid/Vitamin B Comp W-C 1 Capsule 1 CAP PO (09:31)
--- NOTE | 2018-12-03 10:16 | PN.CARD_ITS ---
Subjectve: Patient seen and evaluated. Appears to be doing okay. No chest pain. Had some shoulder discomfort which was nondescript. Objective: Vital Signs Temp Pulse Resp BP Pulse Ox 97.6 F L 75 19 H 154/69 H 92 12/03/18 09:07 12/03/18 09:10 12/03/18 09:07 12/03/18 09:07 12/03/18 09:10 Oxygen Flow Rate (L/min) 2 Oxygen Delivery Method Room Air Weight: 176 lb 5.917 oz Body Mass Index (BMI) 32.2 Finger Stick Blood Glucose 159 Intake and Output for Last 24 Hours 12/01/18 12/02/18 12/03/18 23:59 23:59 23:59 Intake Total 540 / 540 1170 / 1170 60 / 60 Output Total 350 / 350 255 / 255 Balance 190 / 190 915 / 915 60 / 60 General: Awake, Alert, Oriented x 3 HEENT: PERRL, EOMI, Sclera Non Icteric Neck: Supple, Good ROM, No Lymph Node Enlargement Lungs: Clear to auscultation Cardiovascular: Regular Rhythm, Normal S1, Normal S2, No Murmurs, No Rubs, No Gallops Vascular: No Carotid Bruits, Normal Femoral Pulses, Normal Radial Pulses, Normal Dorsalis Pedal Pulse, Normal Posterior Tibial Pulses Abdomen: Bowel Sounds Present, Soft, Non Tender, No HSM, No Organomegaly, Obese Extremities: No Cyanosis, No Clubbing, Bilateral Edema +1 Neurological: No Focal Motor or Sensory Deficit 12/03/18 06:15: Sodium 136, Potassium 3.9, Chloride 102, Carbon Dioxide 27.0, Anion Gap 7, BUN 43 H, Creatinine 1.84 H, Est GFR (MDRD) Af Amer 34 L, Est GFR (MDRD) Non-Af 28 L, BUN/Creatinine Ratio 23.4 H, Glucose 65 L, Calcium 7.3 L 12/03/18 06:45: WBC 7.1, RBC 2.41 L, Hgb 8.6 L, Hct 25.9 L, MCV 107.5 H, MCH 35.7 H, MCHC 33.2, RDW 15.8 H, RDW Differential 59.7 H, Plt Count 88 L, MPV 11.5 Rhythm: EKG: ECHO: Stress Test: Cardiac Cath: PCI: CT Surgery: Holter monitor: EPS: PPM: CXR: Chest CT Scan: Medical Necessity - Tobacco Use Smoking Status: Never smoker Tobacco Use: Non-smoker Assessment/Plan 1. Coronary artery disease: Patient has been found to have significant multivessel coronary disease which does not appear to be amenable to surgical revascularization superimposed on mild LV dysfunction with an EF of 50% and at least moderate pulmonary hypertension with an RVSP of 40 mmHg on recent echocardiogram. Patient underwent a staged and limited angioplasty and stenting of her proximal and mid LAD with balloon angioplasty only of a small diagonal branch which was too small to stent. She has remaining coronary artery disease downstream from a severely calcified right coronary artery in both her PDA and posterior lateral branches which were going to be left for later once her hemoglobin and creatinine stabilized. The patient now returns with recurrent lower GI bleeding, anemia requiring blood transfusion for a second time, and worsening renal insufficiency. At this point I would not recommend repeat catheterization or additional angioplasty and stenting as she has no acute EKG changes or abnormal troponin releases or arrhythmias which would mandate this in the near term. The patient needs to stay on both baby aspirin and Plavix given her recent drug- eluting stents to her LAD. Would recommend keeping her hemoglobin above at least 9.0 and preferably 10.0 as the patient appears to do better with this. She was hypotensive during her dialysis and therefore I have discontinued temporarily her beta-marilyn as well as her nitrates to see whether she will be able to tolerate dialysis today. She does have a fair amount of third spacing. This was discussed with the certified optician. Once the patient has been stabilized on dialysis and demonstrates no additional upper or lower GI bleeding, we will then consider proceeding with angioplasty and stenting in several weeks time of her PDA and posterior lateral branches. Would not recommend stress testing at this time given her current condition. 2. Hyperlipidemia: Patient complains of diffuse myalgias and will hold on statin based medications at this time. 3. Thank you very much for the opportunity to participate in the cardiac care of your patient. Thank you for allowing me to participate in the care of your patient. Please don't hesitate to call if any issues arise
[2018-12-03] MEDS: Insulin Lispro 100 UNIT/ML INSULN.PEN SC (11:32)
[2018-12-03 11:41] LABS: Bedside Glucose 244 mg/dL (70-110)
--- NOTE | 2018-12-03 11:49 | PN_ITS ---
<Wendy Avilez - Last Filed: 12/03/18 11:53> Patient Problems: Active and Suspected Problems (Last Reviewed 11/30/18 @ 02:27 by Pete Ramirez DO) JOSE (acute kidney injury) (Acute) GI bleed (Acute) Subjective: Patient seen and examined. Complains of continued generalized weakness. Considering rehab at discharge, discussing with family. No other complaints. To undergo dialysis this evening. - Physical Exam General: Alert, Oriented x3, Cooperative HEENT: Atraumatic, PERRLA, EOMI, Normocephalic Neck: Supple, No JVD, Negative Carotid Bruits Lungs: Clear to auscultation, Diminished Cardiovascular: Regular rate, Regular Rhythm, Normal S1, Normal S2, No murmurs Abdomen: Bowel Sounds Present, Soft, Non Tender, Non-Distended Extremities: No clubbing, No cyanosis, Capillary Refill Less than 3 Seconds, Edema - +2 LLE, +1 RLE, nonpitting bilateral upper extremities. Skin: No rashes, No breakdown Musculoskeletal: No Tenderness to Palpation of Joints or Extremities Neurological: Cranial nerves II-XII grossly intact, Neuro grossly intact Psych/Mental Status: Flat Affect Vital Signs Temp Pulse Resp BP Pulse Ox 97.6 F L 75 19 H 154/69 H 92 12/03/18 09:07 12/03/18 09:10 12/03/18 09:07 12/03/18 09:07 12/03/18 09:10 Oxygen Flow Rate (L/min) 2 Oxygen Delivery Method Room Air Weight: 176 lb 5.917 oz Body Mass Index (BMI) 32.2 Finger Stick Blood Glucose 159 Intake and Output for Last 24 Hours 12/01/18 12/02/18 12/03/18 23:59 23:59 23:59 Intake Total 540 / 540 1170 / 1170 60 / 60 Output Total 350 / 350 255 / 255 Balance 190 / 190 915 / 915 60 / 60 Laboratory Tests Past 24 Hrs 12/03/18 12/03/18 06:15 06:45 WBC 7.1 RBC 2.41 L Hgb 8.6 L Hct 25.9 L MCV 107.5 H MCH 35.7 H MCHC 33.2 RDW 15.8 H RDW Differential 59.7 H Plt Count 88 L MPV 11.5 Sodium 136 Potassium 3.9 Chloride 102 Carbon Dioxide 27.0 Anion Gap 7 BUN 43 H Creatinine 1.84 H Estim Creat Clear Calc 20.57 Est GFR (MDRD) Af Amer 34 L Est GFR (MDRD) Non-Af 28 L BUN/Creatinine Ratio 23.4 H Glucose 65 L Calcium 7.3 L POC Glucose 12/03/18 12/03/18 12/03/18 11:27 07:01 06:42 POC Glucose 244 H 86 68 L 12/02/18 12/02/18 12/02/18 21:43 17:08 12:24 POC Glucose 133 H 105 226 H 12/02/18 06:47 POC Glucose 116 H Medical Necessity - Tobacco Use Smoking Status: Never smoker Tobacco Use: Non-smoker Assessment/Plan All Active Problems (Last Reviewed 11/30/18 @ 02:27 by Pete Ramirez DO) JOSE (acute kidney injury) (Acute) GI bleed (Acute) GI bleed (Acute) Acute coronary syndrome (Acute) Non-STEMI (non-ST elevated myocardial infarction) (Acute) Hypercholesterolemia (Acute) Congestive heart failure of unknown etiology (Acute) Abnormal EKG (Acute) 1. Acute kidney injury on chronic kidney disease stage IV-nephrology, Dr. Pearson following. Right IJ catheter placed 11/30/[address] Lawrence. To undergo dialysis again today for 3rd session. Trend BMP. Dr. Lawrence following for possible AVF placement. 2. Acute blood loss anemia secondary to GI bleed as result of external hemorrhoids-patient received 1 unit PRBC. Hemoglobin stable. To receive EPO with dialysis. 3. Elevated troponin, history of CAD with multiple stents-cardiology following. Plan is to stabilize patient from renal standpoint and reevaluate angiopl asty/stent as outpatient. Continue medical management. Continue aspirin, statin, Plavix, carvedilol. Patient is on Ranexa as well. 4. Chronic diastolic CHF-recent echocardiogram with EF 50%. Diuretic regimen on hold secondary #1. 5. 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 Wound care consulted. Doxycycline held on admission. 6. Type 2 diabetes [id number] ACHS with sliding scale insulin and Lantus regimen. 7. Hypomagnesemia-replaced per protocol. Resolved. 8. Autoimmune hepatitis-patient on Imuran and budesonide. Follows with Dr. Taylor. 9. Hypertension-continue carvedilol, Imdur, regimen. Hydralazine discontinued due to hypotension with dialysis. 10. Hyperlipidemia-continue statin. 11. GERD-continue PPI. DVT prophylaxis-SCDs Discharge planning: PT recommending SNF, patient undecided at this point. Encouraged discussion with family and short-term rehab at discharge. This patient was seen by RAMÍREZ Gottlieb under the supervision of Dr. Mcallister. <Mart Mcallister - Last Filed: 12/03/18 12:36> - Physical Exam Vital Signs Temp Pulse Resp BP Pulse Ox 97.6 F L 75 19 H 154/69 H 92 12/03/18 09:07 12/03/18 09:10 12/03/18 09:07 12/03/18 09:07 12/03/18 09:10 Oxygen Flow Rate (L/min) 2 Oxygen Delivery Method Room Air Weight: 80 kg Body Mass Index (BMI) 32.2 Finger Stick Blood Glucose 159 Intake and Output for Last 24 Hours 12/01/18 12/02/18 12/03/18 23:59 23:59 23:59 Intake Total 540 / 540 1170 / 1170 60 / 60 Output Total 350 / 350 255 / 255 Balance 190 / 190 915 / 915 60 / 60 Laboratory Tests Past 24 Hrs 12/03/18 12/03/18 06:15 06:45 WBC 7.1 RBC 2.41 L Hgb 8.6 L Hct 25.9 L MCV 107.5 H MCH 35.7 H MCHC 33.2 RDW 15.8 H RDW Differential 59.7 H Plt Count 88 L MPV 11.5 Sodium 136 Potassium 3.9 Chloride 102 Carbon Dioxide 27.0 Anion Gap 7 BUN 43 H Creatinine 1.84 H Estim Creat Clear Calc 20.57 Est GFR (MDRD) Af Amer 34 L Est GFR (MDRD) Non-Af 28 L BUN/Creatinine Ratio 23.4 H Glucose 65 L Calcium 7.3 L POC Glucose 12/03/18 12/03/18 12/03/18 11:27 07:01 06:42 POC Glucose 244 H 86 68 L 12/02/18 12/02/18 12/02/18 21:43 17:08 06:47 POC Glucose 133 H 105 116 H Assessment/Plan This patient was seen in conjunction with RAMÍREZ Gottlieb . I have independently interviewed and examined the patient and reviewed pertinent historical, laboratory, and other data. Please refer to RAMÍREZ Gottlieb note for details of this patient's presentation, findings, and recommendations. I have reviewed RAMÍREZ Gottlieb note and concur with documented findings. In brief, patient is a 78-year-old lady with poor comorbidities admitted with exertional dyspnea; intermittent hematochezia. Patient was found to have worsening kidney function with BUN greater than 130 on admission admitted to a monitored bed for subsequent management 12/01/2018: Patient was seen in consultation by Dr. Brenda Pearson with nephrology recommended for patient to undergo IV access for dialysis. IV Dialysis access was placed by Dr. Lawrence on 11/30/2018. Patient to start dialysis on 11/11/2018 12/02/2018 patient had her second session of dialysis 12/03/2018 patient scheduled to undergo her third dialysis session. Kidney function significantly improved. Did discuss results of BMP with patient and . Physical Examination: GENERAL: cooperative HEENT: Atraumatic; EYES; Anicteric, NECK; supple, normal thyroid, RESPIRATORY: Diminished to auscultation bilaterally, CARDIOVASCULAR: Regular S1 S2, no audible murmurs GI: soft, non-tender, normoactive bowel sounds, : No Renal angle tenderness; NEURO: Awake; no lateralizing signs. SKIN: No Rash PSYCH; Normal affect Assessment: 1. Acute kidney injury in the setting of chronic kidney disease stage IV dialysis initiated on 12/01/2018 2. Anemia secondary to acute blood loss anemia 3. CAD with multiple stents placement in the past 4. Elevated troponin ; cardiology consulted 5. Congestive heart failure with preserved ejection fraction 6. Diabetes mellitus type 2 7. 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 Hypomagnesemia 9. Autoimmune hepatitis patient is on Azathioprine (Imuran) as well as budesonide: Followed by Dr. Taylor as outpatient 10. Essential hypertension 11. GERD on Protonix 12. DVT prophylaxis: SCDs. Recommendations: 1. I have discussed the results of my overview and impressions with the patient 2. Options for management were reviewed Code Visit Inpatient E&M: 34903 Subs Hosp L2
--- NOTE | 2018-12-03 14:04 | VDLE_ITS ---
Reason For Study: SWELLING Procedure LEFT Exam performed portable in patient room. GSV is normal. A preliminary report was called and/or faxed CFV is compressible, spontaneous, phasic, to PCU. competent, and demonstrates normal augmentation. FV is compressible, spontaneous, phasic, competent and demonstrates normal augmentation. POP V is compressible, spontaneous, phasic, competent and demonstrates normal augmentation. T/P Trunk is compressible. PTV is compressible. LT PerV is compressible. Interpretation Summary There is no evidence of left lower extremity deep vein thrombosis. Left greater saphenous vein appears patent and compressible segmentally. Ordering Physician: RAMÍREZ Gottlieb Referring Physician: BECKI RECIO Performed By: Lucy Herring, STEFANIE, RVT
--- NOTE | 2018-12-03 14:42 | CASEMGMT ---
This RN CM did [facility] at [facility]. Per Claudia SAFE AND VAULT SERVICE MECHANIC, pt may want to go to SNF at this time. This RN CM to room to discuss d/c plan and notify pt of dialysis approval, pt/ voice understanding. states that they are interested in pt going to TCU at discharge. Advised pt/ that TCU does not take dialysis pt's, voice understanding and are unsure that they want to go to any other facility at this time. Pt states that she thinks she will be fine at home and pt does have OP therapy set up through [facility]. CM to f/u with pt/ on wednesday if still here. does state interest in pt completing AD info at this time. Lanny SW aware at this time, voices understanding. Dialysis schedule letter was never faxed at this time from [facility]. This RN APPLE did place all dialysis info into pt d/c f/u appt's at this time. Pt/ voice no further questions/concerns/needs at this time. SStalex RN APPLE
--- NOTE | 2018-12-03 15:46 | PCM.PN.BLA ---
Progress Note Pt taken off all BP, vasomotor drugs after discussed with cardiology for hypotension on dialysis past 2 treatments. BP stable when set for no fluid removal, run even to positive fluid balance for hypotension. Today, pt started with SBP 150 on dialysis then dropped to 85 /46 when set for 500cc fluid removal. Pt received rinse back with BP back up to 98/46. Will continue to run even on dialysis since pt does not appear to tolerate any fluid removal despite extravascular swelling. Remains anuric.
--- NOTE | 2018-12-03 15:50 | CASEMGMT ---
Social Work PCU Consult: Advanced directives. Received notice from RN APPLE Hunt that patient's expressed interest in patient completed advanced directives. Presented to patient's room introducing to self and reason for visit today. Patient in the middle of dialysis, appearing sleepy as evidenced by shutting eyes in the middle of manager social responsibility introduction. Patient did engage in conversation when manager social responsibility inquired about interest in advanced directive completion, stating in the affirmative a desire to complete. Patient pointed hand towards to further discuss and take care of directives, to which this marketing copywriter informed patient that needs patient awake and engaged in conversation as patient has to be the one to complete for self. Patient appeared to drift back to sleep or started to doze, shutting eyes again. asked if manager social responsibility could come back after dialysis was over today. RN reports patient has another 2.5 hours before finishing this treatment. Let know that this marketing copywriter will not be in hospital at that time. Discussed with that a manager social responsibility can return on Wednesday to complete, if patient is still in the hospital and patient is more awake. Educated that if for some reason patient discharges before Wednesday then patient could come back into hospital to meet with a manager social responsibility for advanced care planning free of charge. indicated this may work out and agrees to options presented by this marketing copywriter. exereses interest in completing advanced directives for self as well. appearing tired. Inquired how is doing and reports to be doing okay, trying to take everything in. reports prior to hospitalization could care for patient, that outpatient PT is set up locally but is uncertain if patient will need more help before going home. reports to be taking it one day at a time as far as what is needed. Supportive listening offered. Provided question and answer booklet for patient and , as well as two copies of blank POAHC and Living will forms. Plan: If patient remains in hospital through the weekend, social work to follow up on Wednesday for completion of advanced directives. If discharges home then patient and have numbers to contact to come back in and complete when back in the community. -ROSSY Tinajero, CUP TRIMMING MACHINE OPERATOR
--- NOTE | 2018-12-03 16:13 | EKG12_ITS ---
Test Reason : CP Blood Pressure : / mmHG Vent. Rate : 083 BPM Atrial Rate : 083 BPM P-R Int : 162 ms QRS Dur : 140 ms QT Int : 458 ms P-R-T Axes : 014 032 051 degrees QTc Int : 538 ms Normal sinus rhythm Right bundle branch block T wave abnormality, consider lateral ischemia Abnormal ECG When compared with ECG of 01-DEC-2018 00:34, MANUAL COMPARISON REQUIRED, DATA IS UNCONFIRMED Confirmed by ROCHELLE BRYSON, TONIA ([id number]), news editor OPHELIA SIERRA ([id number]) on 12/06/2018 1:15:36 PM Referred By: MARIA ELENA Confirmed By:TONIA BYRD MD
[2018-12-03 16:45] LABS: Bedside Glucose 145 mg/dL (70-110)
--- NOTE | 2018-12-03 17:07 | DIALYSIS ---
Hemodialysis x 50min with 3K bath; BP dropped to systolic 68 with chestpain. fluids given. tx stopped. blood returned. RIJ CVC capped & locked with heparin per lumen fill volume. Post BP 121/54
[2018-12-03 21:50] LABS: Bedside Glucose 266 mg/dL (70-110)
[2018-12-04] VITALS (15 sets, daily range): BP systolic 139–167; BP diastolic 60–76; PULSE 79–94; RESP 18; TEMP 36.6–37.6; O2SAT 94–97
[2018-12-04 06:40] LABS: Bedside Glucose 150 mg/dL (70-110)
[2018-12-04 07:00] LABS: Anion Gap 11 (5-15); BUN 42 mg/dL (7-18); BUN/Creat Ratio 19.6 RATIO (10-20); Calcium,Total 7.4 mg/dL (8.5-10.1); Chloride 100 mmol/L (98-107); Creatinine, Serum 2.14 mg/dL (0.55-1.02); EST Glomerular Filtration Rate 24 mL/min (>60); Est Glom Filt Rate - Afr Amer 29 mL/min (>60); Estimated Creatinine Clearance 17.69 ml/min; Glucose 157 mg/dL (74-106); Potassium 3.9 mmol/L (3.5-5.1); Sodium Level 136 mmol/L (136-145)
[2018-12-04] MEDS: Nepro Liquid 120 ML LIQUID PO ×3 (08:34→16:29)
[2018-12-04] MEDS: Acetaminophen 325 MG Tablet 650 MG PO ×3 (08:34→22:12)
[2018-12-04] MEDS: azaTHIOprine 50 MG Tablet 100 MG PO (08:37)
[2018-12-04] MEDS: Insulin Lispro 100 UNIT/ML INSULN.PEN SC ×4 (08:37→22:12)
[2018-12-04] MEDS: Pantoprazole Sodium 20 MG Tablet PO (08:38)
[2018-12-04] MEDS: Ranolazine 500 MG Tablet PO ×2 (08:38→22:12)
[2018-12-04] MEDS: Aspirin 81 MG TAB.CHEW PO (08:38)
[2018-12-04] MEDS: Clopidogrel Bisulfate 75 MG Tablet PO (08:38)
[2018-12-04] MEDS: Folic Acid/Vitamin B Comp W-C 1 Capsule 1 CAP PO (08:42)
--- NOTE | 2018-12-04 11:22 | PN.CARD_ITS ---
Subjectve: Patient seen and evaluated. Says did not have a good night's rest last night Objective: Vital Signs Temp Pulse Resp BP Pulse Ox 97.8 F 93 18 163/60 H 94 12/04/18 06:30 12/04/18 11:00 12/04/18 06:30 12/04/18 06:30 12/04/18 08:34 Oxygen Flow Rate (L/min) 2 Oxygen Delivery Method Room Air Weight: 176 lb 5.917 oz Body Mass Index (BMI) 32.2 Finger Stick Blood Glucose 159 Intake and Output for Last 24 Hours 12/02/18 12/03/18 12/04/18 23:59 23:59 23:59 Intake Total 1170 / 1170 1999 240 / 240 Output Total 255 / 255 Balance 915 / 915 1998 240 / 240 General: Awake, Alert, Oriented x 3 HEENT: PERRL, EOMI, Sclera Non Icteric Neck: Supple, Good ROM, No Lymph Node Enlargement Lungs: Clear to auscultation Cardiovascular: Regular Rhythm, Normal S1, Normal S2, No Murmurs, No Rubs, No Gallops Vascular: No Carotid Bruits, Normal Femoral Pulses, Normal Radial Pulses, Normal Dorsalis Pedal Pulse, Normal Posterior Tibial Pulses Abdomen: Bowel Sounds Present, Soft, Non Tender, No HSM, No Organomegaly Extremities: No Cyanosis, No Clubbing, Bilateral Edema +3, - - Arm edema also noted Musculoskeletal: No Erythema Skin: No Rashes Lymphatic: No Lymph Node Enlargement Neurological: No Focal Motor or Sensory Deficit Psych/Mental Status: Appropriate 12/04/18 05:33: Sodium 136, Potassium 3.9, Chloride 100, Carbon Dioxide 25.0, Anion Gap 11, BUN 42 H, Creatinine 2.14 H, Est GFR (MDRD) Af Amer 29 L, Est GFR (MDRD) Non-Af 24 L, BUN/Creatinine Ratio 19.6, Glucose 157 H, Calcium 7.4 L Rhythm: EKG: ECHO: Stress Test: Cardiac Cath: PCI: CT Surgery: Holter monitor: EPS: PPM: CXR: Chest CT Scan: Medical Necessity - Tobacco Use Smoking Status: Never smoker Tobacco Use: Non-smoker Assessment/Plan 1. Coronary artery disease: Patient has been found to have significant multivessel coronary disease which does not appear to be amenable to surgical revascularization superimposed on mild LV dysfunction with an EF of 50% and at least moderate pulmonary hypertension with an RVSP of 40 mmHg on recent echocardiogram. Patient underwent a staged and limited angioplasty and stenting of her proximal and mid LAD with balloon angioplasty only of a small diagonal branch which was too small to stent. She has remaining coronary artery disease downstream from a severely calcified right coronary artery in both her PDA and posterior lateral branches which were going to be left for later once her hemoglobin and creatinine stabilized. The patient now returns with recurrent lower GI bleeding, anemia requiring blood transfusion for a second time, and worsening renal insufficiency. At this point I would not recommend repeat catheterization or additional angioplasty and stenting as she has no acute EKG changes or abnormal troponin releases or arrhythmias which would mandate this in the near term. The patient needs to stay on both baby aspirin and Plavix given her recent drug- eluting stents to her LAD. Would recommend keeping her hemoglobin above at least 9.0 and preferably 10.0 as the patient appears to do better with this. She was hypotensive during her dialysis and therefore I have discontinued temporarily her beta-marilyn as well as her nitrates to see whether she will be able to tolerate dialysis. She apparently did not and she currently experiences a fair amount of third spacing. This was discussed with the inspector machine cut glass. Will be discussed further in a.m. The patient remains anuric 2. Hyperlipidemia: Patient complains of diffuse myalgias and will hold on statin based medications at this time. Thank you for allowing me to participate in the care of your patient. Please don't hesitate to call if any issues arise
[2018-12-04 12:56] LABS: Bedside Glucose 277 mg/dL (70-110)
--- NOTE | 2018-12-04 13:30 | PCM.PROGNOTE ---
Patient Problems: Active and Suspected Problems (Last Reviewed 11/30/18 @ 02:27 by Pete Ramirez DO) JOSE (acute kidney injury) (Acute) GI bleed (Acute) Subjective: Patient seen and examined. No new complaints. Reports ongoing fatigue. - Physical Exam General: Alert, Oriented x3, Cooperative HEENT: Atraumatic, PERRLA, EOMI, Normocephalic Neck: Supple, No JVD, Negative Carotid Bruits Lungs: Clear to auscultation, Diminished Cardiovascular: Regular rate, Regular Rhythm, Normal S1, Normal S2, No murmurs Abdomen: Bowel Sounds Present, Soft, Non Tender, Non-Distended Extremities: No clubbing, No cyanosis, Edema - Bilateral lower extremity left greater than right Skin: No rashes, No breakdown Musculoskeletal: No Tenderness to Palpation of Joints or Extremities Neurological: Cranial nerves II-XII grossly intact, Neuro grossly intact Psych/Mental Status: Normal Affect, Appropriate Vital Signs Temp Pulse Resp BP Pulse Ox 98.2 F 94 18 155/72 H 97 12/04/18 11:37 12/04/18 11:37 12/04/18 11:37 12/04/18 11:37 12/04/18 11:37 Oxygen Flow Rate (L/min) 2 Oxygen Delivery Method Room Air Weight: 176 lb 5.917 oz Body Mass Index (BMI) 32.2 Finger Stick Blood Glucose 159 Intake and Output for Last 24 Hours 12/02/18 12/03/18 12/04/18 23:59 23:59 23:59 Intake Total 1170 / 1170 1999 460 / 460 Output Total 255 / 255 Balance 915 / 915 1998 460 / 460 Laboratory Tests Past 24 Hrs 12/04/18 05:33 Sodium 136 Potassium 3.9 Chloride 100 Carbon Dioxide 25.0 Anion Gap 11 BUN 42 H Creatinine 2.14 H Estim Creat Clear Calc 17.69 Est GFR (MDRD) Af Amer 29 L Est GFR (MDRD) Non-Af 24 L BUN/Creatinine Ratio 19.6 Glucose 157 H Calcium 7.4 L POC Glucose 12/04/18 12/04/18 12/03/18 11:35 06:33 21:39 POC Glucose 277 H 150 H 266 H 12/03/18 16:37 POC Glucose 145 H Medical Necessity - Tobacco Use Smoking Status: Never smoker Tobacco Use: Non-smoker Assessment/Plan All Active Problems (Last Reviewed 11/30/18 @ 02:27 by Pete Ramirez DO) JOSE (acute kidney injury) (Acute) GI bleed (Acute) GI bleed (Acute) Acute coronary syndrome (Acute) Non-STEMI (non-ST elevated myocardial infarction) (Acute) Hypercholesterolemia (Acute) Congestive heart failure of unknown etiology (Acute) Abnormal EKG (Acute) 1. Acute kidney injury on chronic kidney disease stage IV-nephrology, Dr. Pearson following. Right IJ catheter placed 11/30/[address] Lawrence. Underwent dialysis X3 days, most recent 12/03/18. Patient did not tolerate dialysis well due to significant hypotension. Trend BMP. Dr. Lawrence following for possible AVF placement. Creatinine significantly improved. 2. Acute blood loss anemia secondary to GI bleed as result of external hemorrhoids-patient received 1 unit PRBC. Hemoglobin stable. To receive EPO with dialysis. 3. Elevated troponin, history of CAD with multiple stents-cardiology following. Plan is to stabilize patient from renal standpoint and reevaluate angioplasty/stent as outpatient. Continue medical management. Continue aspirin, statin, Plavix, carvedilol. Patient is on Ranexa as well. 4. Chronic diastolic CHF-recent echocardiogram with EF 50%. Diuretic regimen on hold secondary #1. 5. 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 Wound care consulted. Doxycycline held on admission. 6. Type 2 diabetes [id number] ACHS with sliding scale insulin and Lantus regimen. 7. Hypomagnesemia-replaced per protocol. Resolved. 8. Autoimmune hepatitis-patient on Imuran and budesonide. Follows with Dr. Taylor. 9. Hypertension-continue carvedilol, Imdur, regimen. Hydralazine discontinued due to hypotension with dialysis. 10. Hyperlipidemia-continue statin. 11. GERD-continue PPI. DVT prophylaxis-SCDs Discharge planning: PT recommending SNF, patient undecided at this point. Encouraged discussion with family and short-term rehab at discharge. This patient was seen by RAMÍREZ Gottlieb under the supervision of Dr. Saleem.
[2018-12-04 17:11] LABS: Bedside Glucose 238 mg/dL (70-110)
--- NOTE | 2018-12-04 21:12 | NURSING ---
Attempt IV access to right wrist without success. PRBC infusing into right hand. Site without signs of infiltration.
[2018-12-04 22:20] LABS: Bedside Glucose 175 mg/dL (70-110)
[2018-12-05] VITALS (15 sets, daily range): BP systolic 144–175; BP diastolic 60–77; PULSE 67–97; RESP 18; TEMP 36.6–37.4; O2SAT 92–97
[2018-12-05] MEDS: 0.9% NaCl Peripheral Flush Adult/Peds IV (00:30)
[2018-12-05 06:44] LABS: Albumin, Serum 2.1 g/dL (3.2-5.0); BUN 48 mg/dL (7-18); BUN/Creat Ratio 20.3 RATIO (10-20); Calcium,Total 7.6 mg/dL (8.5-10.1); Chloride 98 mmol/L (98-107); Creatinine, Serum 2.37 mg/dL (0.55-1.02); EST Glomerular Filtration Rate 21 mL/min (>60); Est Glom Filt Rate - Afr Amer 26 mL/min (>60); Estimated Creatinine Clearance 15.97 ml/min; Glucose 129 mg/dL (74-106); Phosphorus 3.6 mg/dL (2.5-4.9); Sodium Level 135 mmol/L (136-145)
[2018-12-05 06:56] LABS: Bedside Glucose 124 mg/dL (70-110)
[2018-12-05 06:57] LABS: Hematocrit 29.7 % (37-47); Hemoglobin 9.6 g/dl (12.0-15.0); Mean Corp Hgb Conc 32.3 g/gl (32-36); Mean Corpuscular Hgb 32.2 pg (27.0-32.0); Mean Corpuscular Volume 99.7 fL (81-99); Mean Platelet Vol. 10.6 fl (6.2-12.0); Platelet Count 87 K/mm3 (150-450); RBC Distribution Width CV 22.2 % (11.6-14.6); RBC Distribution Width SD 76.4 fl (35.1-43.9); Red Blood Count 2.98 M/mm3 (4.2-5.4); White Blood Count 6.8 K/mm3 (4.4-11.0)
[2018-12-05 07:06] LABS: Scan Indicated on CBC? Y/N YES- FLAGS NOTED
[2018-12-05 07:25] LABS: Differential Comment SCAN
[2018-12-05] MEDS: Acetaminophen 325 MG Tablet 650 MG PO ×3 (08:11→18:16)
[2018-12-05 08:18] LABS: BNP,B-Type NATRIURETIC PEPTIDE 496.3 pg/mL (0-100)
[2018-12-05] MEDS: Aspirin 81 MG TAB.CHEW PO (09:35)
[2018-12-05] MEDS: Pantoprazole Sodium 20 MG Tablet PO (09:35)
[2018-12-05] MEDS: Clopidogrel Bisulfate 75 MG Tablet PO (09:35)
[2018-12-05] MEDS: Nepro Liquid 120 ML LIQUID PO ×4 (09:35→22:25)
[2018-12-05] MEDS: Ranolazine 500 MG Tablet PO ×2 (09:36→22:26)
--- NOTE | 2018-12-05 09:43 | PCM.PN.REN ---
Patient Problems: Active and Suspected Problems (Last Reviewed 11/30/18 @ 02:27 by Pete Ramirez DO) JOSE (acute kidney injury) (Acute) GI bleed (Acute) Subjective: short of breath, chest tightness with blood transfusion last night. Third spacing. BP drop with fluid removal on dialysis Sat with minimal fluid removal set. Will try UF only with iv albumin and midodrine on dialysis. Pt agreed to ECF placement. Remains debilitated with rt leg pain with wound. - Physical Exam General: Alert, Oriented x3 HEENT: PERRLA, EOMI Oral: Dry Mucosa Neck: Supple Lungs: Clear to auscultation Cardiovascular: Regular rate, Murmur Abdomen: Bowel Sounds Present, Soft, Non Tender Extremities: Edema - third spacing Musculoskeletal: - - generalized weakness Neurological: - - no tremor Psych/Mental Status: Depressed, Alert and oriented to time, place, person, mood and affect Vital Signs Temp Pulse Resp BP Pulse Ox 97.9 F 97 18 175/77 H 94 12/05/18 08:42 12/05/18 08:42 12/05/18 08:42 12/05/18 08:42 12/05/18 08:42 Oxygen Flow Rate (L/min) 2 Oxygen Delivery Method Room Air Weight: 80 kg Body Mass Index (BMI) 32.2 Finger Stick Blood Glucose 159 Intake and Output for Last 24 Hours 12/03/18 12/04/18 12/05/18 23:59 23:59 23:59 Intake Total 1999 460 / 460 520 / 520 Output Total Balance 1998 460 / 460 520 / 520 Laboratory Tests Past 24 Hrs 12/04/18 12/05/18 12/05/18 18:38 05:50 05:50 WBC 6.8 RBC 2.98 L Hgb 9.6 L Hct 29.7 L MCV 99.7 H MCH 32.2 H MCHC 32.3 RDW 22.2 H RDW Differential 76.4 H Plt Count 87 L MPV 10.6 Differential Comment SCAN Sodium 135 L Potassium 4.0 Chloride 98 Carbon Dioxide 24.0 BUN 48 H Creatinine 2.37 H Estim Creat Clear Calc 15.97 Est GFR (MDRD) Af Amer 26 L Est GFR (MDRD) Non-Af 21 L BUN/Creatinine Ratio 20.3 H Glucose 129 H Calcium 7.6 L Phosphorus 3.6 B-Natriuretic Peptide Albumin 2.1 L Blood Type O POSITIVE Antibody Screen NEGATIVE Crossmatch See Detail 12/05/18 05:50 WBC RBC Hgb Hct MCV MCH MCHC RDW RDW Differential Plt Count MPV Differential Comment Sodium Potassium Chloride Carbon Dioxide BUN Creatinine Estim Creat Clear Calc Est GFR (MDRD) Af Amer Est GFR (MDRD) Non-Af BUN/Creatinine Ratio Glucose Calcium Phosphorus B-Natriuretic Peptide 496.3 H Albumin Blood Type Antibody Screen Crossmatch POC Glucose 12/05/18 12/04/18 12/04/18 06:47 22:09 16:25 POC Glucose 124 H 175 H 238 H 12/04/18 11:35 POC Glucose 277 H Medical Necessity - Tobacco Use Smoking Status: Never smoker Tobacco Use: Non-smoker Assessment/Plan All Active Problems (Last Reviewed 11/30/18 @ 02:27 by Pete Ramirez DO) JOSE (acute kidney injury) (Acute) GI bleed (Acute) GI bleed (Acute) Acute coronary syndrome (Acute) Non-STEMI (non-ST elevated myocardial infarction) (Acute) Hypercholesterolemia (Acute) Congestive heart failure of unknown etiology (Acute) Abnormal EKG (Acute) 1. 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 Pt oligoanuric. Hypotensive with treatment Sat with systolic in the 60's. No fluid removed for this reason. Will try UF with iv albumin and midodrine 10mg on dialysis today. She has outpt dialysis set for every TTS. If she cannot tolerate UF only, may need to consider palliative/hospice. 2. s/p stent LAD, ACS on plavix last admit 3. DM2 primary service mgmt 4. HTN stable 5. Acute GI bleed on plavix, ASA. Continue ESTEPHANIE therapy on dialysis. 6. Cellulitis RLE continue with wound care. Consult plastic surgery for skin biopsy to evaluate for calciphylaxis. 7. Moderate protein calorie malnutrition albumin 2.2. Continue protein supplements DW pt, pt spouse at bedside, hospitalist.
[2018-12-05] MEDS: azaTHIOprine 50 MG Tablet 100 MG PO (10:09)
[2018-12-05] MEDS: Folic Acid/Vitamin B Comp W-C 1 Capsule 1 CAP PO (10:09)
[2018-12-05] MEDS: Midodrine HCl 5 MG Tablet 10 MG PO (10:25)
--- NOTE | 2018-12-05 12:18 | CASEMGMT ---
Per JAZLYN Saleh, referral needs sent to [facility]. JAZLYN already contacted facility. Referral information faxed to [phone], confirmation received. Wendy Ewing LPN Clinical Support
[2018-12-05] MEDS: Insulin Lispro 100 UNIT/ML INSULN.PEN SC ×3 (12:24→22:25)
[2018-12-05 12:30] LABS: Bedside Glucose 221 mg/dL (70-110)
--- NOTE | 2018-12-05 12:45 | CASEMGMT ---
Social Work SW met with pt and spouse to discuss advance directives. Pt is alert and oriented today and agreeable to meet with SW and discuss Advance Directives. Living will and HCPOA completed for pt and for pt . Pt naming her [place] as HCPOA. Copy placed on chart and original given to pt spouse with instructions to give copy to PCP and pt sons who are secondary HCPOA. Pt and spouse expressing understanding. SW encouraged pt to take copy of his AD to medical records for his chart. Spoke with pt and about d/c plans. Pt and spouse agreeable that pt will need short term SNF. List of area SNF's provided to pt and and they would like [facility]. SW requested pt review list and come up with second choice if [facility] is not able to accept. Phone call to Teresa at [facility] and information provided. Beds are available and Teresa will review referral. JAZLYN informed Teresa pt will be getting new dialysis T/TH/Sat 1140 and states he will be able to provide transportation. Phone call to CONNIE Nguyen and requested she fax referral to [facility]. JAZLYN will await determination. ROYA Lora
--- NOTE | 2018-12-05 14:10 | CON.PCM_ITS ---
Reason for Consult Date of Consultation: 12/05/18 Reason for Consultation: Painful necrotic skin contusion right lateral leg. REFERRING PHYSICIAN: Dr. Saleem. SEAMLESS TUBE MILL OPERATOR: Dr. Martinez. History of Present Illness: The patient is a 78 year old F who was admitted on 11/30/18 because of malaise an d weakness and a GI bleed. She recently had an MT and had a stent placed. She also has ESRD and is on dialysis every Wednesday, , and Wednesday. She has been having trouble with hypotension during dialysis. Her WBC on admission was 10.1 and is now 6.8. Her Hgb on admission was 10.0 and is now 9.6. Her BUN/Creat on admission was 127/3.41 and is now 48/2.37. She has been developing increasing pain in her right lateral leg with associated necrotic eschar cluster and surrounding contusion. There is concern of calciphylaxis. If present, medical treatment through the dialysate can be done. I was asked to evaluate this patient for surgical options for treatment to obtain tissue for Pathology to evaluate for calciphylaxis. Past Medical History Past Medical History (Chronic Problems): Chronic Problems (Last Reviewed 11/30/18 @ 02:27 by Pete Ramirez DO) Stented coronary artery (Chronic 11/22/18) Successful PCI with PTCA to the proximal 1/2 of small, calcified DIAG#2 with a 1.5 x 8 balloon; 85%-->30%, no dissection. Successful PTCA/ULISES mid LAD with a 2.25 x 12 Promus Synergy; 85%-->0%, no dissection. Successful PTCA/ULISES proximal LAD with a 3.0 x 12 Promus Synergy; 75%-->0%, no dissection per JA @ [facility] (to have elective PCI of proximal PL branch in 4 to 6 weeks). 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 Motta @ [facility] 11/16/2018) History of left heart catheterization (Chronic 11/16/18) PROX LAD: 75 % Stenosis; MID LAD: 85 % Stenosis; DIAGONAL 2: Proximal - Moderate luminal irregularities up to 50%; CIRCUMFLEX ARTERY: is occluded; RIGHT CORONARY ARTERY: Moderate calcification; PROX RCA: Mild luminal irregularities less than 30%; RT PLV: 75 % Stenosis; RT PDA: Mid - 75 % Stenosis (per [facility] Dr. 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 Motta @ [facility] 11/16/2018) Abdominal pain R10.9 Anxiety F41.9 Cholelithiasis K80.20 Constipation K59.00 Diabetes E11.9 Gout M10.9 History of hysterectomy Z90.710 Nausea & vomiting R11.2 Rheumatoid arthritis M06.9 Hypertension I10 Allergies atorvastatin [From Lipitor] Adverse Reaction (Severe, Verified 11/29/18 23:05) Myalgias codeine Adverse Reaction (Verified 11/29/18 23:05) Hives pain medications Adverse Reaction (Intermediate, Uncoded 11/29/18 23:05) nausea/vomiting Current Medications Acetaminophen (Tylenol) 650 mg PO Q4H PRN PRN PRN Reason: Mild Pain (1-3)/Temp > 100.7 F Last Admin: 12/05/18 13:05 Dose: 650 mg Aspirin (Aspirin, Baby) 81 mg PO DAILY@0800 [facility] Last Admin: 12/05/18 09:35 Dose: 81 mg Azathioprine (Imuran) 100 mg PO DAILY@0800 [facility] Last Admin: 12/05/18 10:09 Dose: 100 mg Clopidogrel Bisulfate (Plavix) 75 mg PO DAILY [facility] Last Admin: 12/05/18 09:35 Dose: 75 mg Insulin Glargine (Lantus (Bkc)) 30 units SC BREAKFAST [facility] Last Admin: 12/05/18 09:36 Dose: 30 u Insulin Human Lispro (Humalog Kwikpen (Bk)) 0 unit SC [facility]; Protocol Last Admin: 12/05/18 12:24 Dose: 2 units Magnesium Hydroxide (Milk Of Magnesia) 30 ml PO DAILY PRN PRN Reason: Constipation Multivit/Ca Carb/B Cmplx/FA/Prenat (Nephrocaps, Renaphro) 1 capsule PO DAILY [facility] Last Admin: 12/05/18 10:09 Dose: 1 capsule Nitroglycerin (Nitrostat) 0.4 mg SUBLINGUAL Q5M PRN PRN Reason: CARDIAC/CHEST PAIN Nutritional Formula (Nepro Carb Steady) 120 ml PO 4X/DAY [facility] Last Admin: 12/05/18 13:05 Dose: 120 ml Ondansetron HCl (Zofran) 4 mg IV Q8H PRN PRN PRN Reason: NAUSEA Pantoprazole Sodium (Protonix) 20 mg PO DAILY [facility] Last Admin: 12/05/18 09:35 Dose: 20 mg Ranolazine (Ranexa) 500 mg PO BID [facility] Last Admin: 12/05/18 09:36 Dose: 500 mg Sodium Chloride () 5 - 15 ml IV UD PRN PRN Reason: SALINE FLUSH Last Admin: 12/05/18 00:30 Dose: 10 ml Zolpidem Tartrate (Ambien (Generic)) 5 mg PO QHS PRN PRN PRN Reason: INSOMNIA Home Medications: Ambulatory Orders Medication Instructions Recorded Atenolol [Tenormin (beta marilyn)] 100 mg PO DAILY 12/05/17 Azathioprine [Imuran] 100 mg PO DAILY@0800 11/15/18 Budesonide [Budesonide EC] 3 mg PO DAILY 11/15/18 Aspirin [Aspirin, Baby] 81 mg PO DAILY@0800 #30 tab.chew 11/23/18 Doxycycline 100 mg PO BID #4 capsule 11/23/18 Furosemide [Lasix] 40 mg PO DAILY #30 tablet 11/23/18 Insulin Glargine [Lantus SoloStar 30 units SC BREAKFAST pen 11/23/18 Pen] Insulin Lispro [Humalog KwikPen] See Protocol SQ [facility] insuln.pen 11/23/18 Isosorbide Mononitrate [Imdur] 60 mg PO DAILY #30 tablet 11/23/18 Nitroglycerin [Nitrostat] 0.4 mg SUBLINGUAL Q5M PRN #10 11/23/18 tablet Pantoprazole Sodium [Protonix] 20 mg PO DAILY #30 tablet 11/23/18 Ranolazine [Ranexa] 500 mg PO BID #60 11/23/18 Sodium Bicarbonate 650 mg PO BID #60 tablet 11/23/18 pravastatin 20 mg tablet 20 mg PO QHS #30 tab 11/24/18 Clopidogrel Bisulfate [Plavix] 75 mg PO DAILY 11/30/18 hydrALAZINE [Apresoline] 25 mg PO BID 11/30/18 Surgical History: Surgical History (Last Reviewed 11/30/18 @ 02:27 by Pete Ramirez DO) Stented coronary artery (Chronic) Onset Date: 11/22/18 Z95.5 Successful PCI with PTCA to the proximal 1/2 of small, calcified DIAG#2 with a 1.5 x 8 balloon; 85%-->30%, no dissection. Successful PTCA/ULISES mid LAD with a 2.25 x 12 Promus Synergy; 85%-->0%, no dissection. Successful PTCA/ULISES proximal LAD with a 3.0 x 12 Promus Synergy; 75%-->0%, no dissection per JA @ [facility] (to have elective PCI of proximal PL branch in 4 to 6 weeks). History of left heart catheterization (Chronic) Onset Date: 11/16/18 Z98.890 PROX LAD: 75 % Stenosis; MID LAD: 85 % Stenosis; DIAGONAL 2: Proximal - Moderate luminal irregularities up to 50%; CIRCUMFLEX ARTERY: is occluded; RIGHT CORONARY ARTERY: Moderate calcification; PROX RCA: Mild luminal irregularities less than 30%; RT PLV: 75 % Stenosis; RT PDA: Mid - 75 % Stenosis (per [facility] Dr. Motta @ [facility] 11/16/2018) Surgical History: cholecystectomy Smoking Status: Never smoker Tobacco Use: Non-smoker Alcohol: None - *Family History Maternal Family History: Family History (Last Reviewed 11/30/18 @ 02:27 by Pete Ramirez DO) Father Heart disease History Items: Heart Disease Paternal Family History: Family History (Last Reviewed 11/30/18 @ 02:27 by Pete Ramirez DO) Father Heart disease History Items: Diabetes, Heart Disease Review of Systems Comment: Constitutional: Reports: Malaise, Weakness, Fatigue. Denies: Anorexia, Chills, Fever. Eyes: Denies: Blurred vision, Double vision. HEENT: Denies: Head Aches, Sinus Congestion, Sinus Drainage. Cardiovascular: Reports: Chest Pain, Edema. Respiratory: Reports: Shortness of Breath, Shortness of breath upon exertion. Gastrointestinal: Reports: Hematochezia. Denies: Abdominal Pain, Constipation, Diarrhea, Dyspepsia. Genitourinary: Denies: Dysuria. Musculoskeletal: Denies: Joint Pain, Joint Tenderness. Skin: Reports: Wounds - Right lower extremity which is been attended to by her .. Denies: Dryness. Neurological: Reports: Balance problems. Denies: Blurred vision, Double vision. Psychiatric: Denies: Anxiety, Depression. Endocrine: Denies: Change in Body Habitus, Heat/ Cold Intolerance. Hematologic/ Lymphatic: Reports: Easy Bleeding. Denies: Easy Bruising, Hx of blood clot Patient Problems: Active and Suspected Problems (Last Reviewed 11/30/18 @ 02:27 by Pete Ramirez DO) JOSE (acute kidney injury) (Acute) GI bleed (Acute) - Physical Exam General: Alert, Cooperative. HEENT: PERRL. EOMI. Oral: Moist Mucosa. Neck: Soft, nontender. No cervical adenopathy. Lungs: Clear to auscultation. Cardiovascular: Regular rate, Regular Rhythm. Abdomen: Soft, Non-Distended. Extremities: Mild edema present in lower extremities. On the right lateral leg is an area of necrotic eschar cluster that is dry. Cluster measures 4 cm. Adjacent to the necrotic eschar cluster is some bruising and discoloration that measures 10 x 6 cm. No purulent drainage. Tender to palpation. Neurological: CN II-XII grossly intact. Psych/Mental Status: Appropriate, Flat Affect Vital Signs Temp Pulse Resp BP Pulse Ox 97.9 F 67 18 175/77 H 94 12/05/18 08:42 12/05/18 11:19 12/05/18 08:42 12/05/18 08:42 12/05/18 08:42 Oxygen Flow Rate (L/min) 2 Oxygen Delivery Method Room Air Weight: 176 lb 5.917 oz Body Mass Index (BMI) 32.2 Finger Stick Blood Glucose 159 Intake and Output for Last 24 Hours 12/03/18 12/04/18 12/05/18 23:59 23:59 23:59 Intake Total 1999 460 / 460 760 / 760 Output Total Balance 1998 460 / 460 760 / 760 Laboratory Tests Past 24 Hrs 12/04/18 12/05/18 12/05/18 18:38 05:50 05:50 WBC 6.8 RBC 2.98 L Hgb 9.6 L Hct 29.7 L MCV 99.7 H MCH 32.2 H MCHC 32.3 RDW 22.2 H RDW Differential 76.4 H Plt Count 87 L MPV 10.6 Differential Comment SCAN Sodium 135 L Potassium 4.0 Chloride 98 Carbon Dioxide 24.0 BUN 48 H Creatinine 2.37 H Estim Creat Clear Calc 15.97 Est GFR (MDRD) Af Amer 26 L Est GFR (MDRD) Non-Af 21 L BUN/Creatinine Ratio 20.3 H Glucose 129 H Calcium 7.6 L Phosphorus 3.6 B-Natriuretic Peptide Albumin 2.1 L Blood Type O POSITIVE Antibody Screen NEGATIVE Crossmatch See Detail 12/05/18 05:50 WBC RBC Hgb Hct MCV MCH MCHC RDW RDW Differential Plt Count MPV Differential Comment Sodium Potassium Chloride Carbon Dioxide BUN Creatinine Estim Creat Clear Calc Est GFR (MDRD) Af Amer Est GFR (MDRD) Non-Af BUN/Creatinine Ratio Glucose Calcium Phosphorus B-Natriuretic Peptide 496.3 H Albumin Blood Type Antibody Screen Crossmatch POC Glucose 12/05/18 12/05/18 12/04/18 12:19 06:47 22:09 POC Glucose 221 H 124 H 175 H 12/04/18 16:25 POC Glucose 238 H Assessment/Plan All Active Problems (Last Reviewed 11/30/18 @ 02:27 by Pete Ramirez DO) JOSE (acute kidney injury) (Acute) GI bleed (Acute) GI bleed (Acute) Acute coronary syndrome (Acute) Non-STEMI (non-ST elevated myocardial infarction) (Acute) Hypercholesterolemia (Acute) Congestive heart failure of unknown etiology (Acute) Abnormal EKG (Acute) 1. Necrotic eschar cluster with surrounding contusion right lateral leg, possible calciphylaxis. 2. ESRD on dialysis. 3. Diabetes mellitus. 4. CAD. 5. Recent MT with placement of a stent. Patient is having increasing pain in her right lateral leg. There is concern that the necrotic eschar cluster with surrounding contusion has some calciphylaxis which can be seen in patients with ESRD on dialysis. If present, medication can be given in the dialysate to help with treatment. Patient has been having unstable dialysis treatments with hypotension. Will proceed cautiously with excisional debridement of the areas of necrotic eschar cluster to evaluate for calciphylaxis. With her recent MT, will proceed under local anesthesia in the OR. Will have Anesthesia monitoring with some light sedation as needed. Will proceed with a limited debridement at this time because of her associated medical co-morbidities at present. Once she stabilizes medically, if there are still issues on her right lateral leg with progressive necrosis and/or persistent contusion with increasing tenderness, can then proceed with a more complete excisional debridement. Besides sending tissue to Pathology for evaluation of calciphylaxis, will also send tissue to Microbiology for culture. A positive culture will necessitate antibiotic therapy. Postop can proceed with the VAC or with daily Silver dressing changes. After discharge, can followup at the [facility]. If there is a plateau in the healing process and she is stable medically, can then proceed with delayed closure with skin grafting. Will check a HgbA1c since it needs to be less than 8 in the future if a skin graft is being considered for closure. Anticipate increased metabolic demands from her planned surgical wound. Will check a Prealbumin and encourage nutritional supplementation with protein to help the healing process. Patient was informed of the risks and complications of the procedure including alternatives to surgery. These were discussed with the patient personally. Patient voices understanding and wishes to proceed. She gets dialysis on Wednesday, , and Wednesday. Will tentatively scheduled this debridement on Wednesday. Code Visit Inpatient E&M: 33395 Init Hosp L2 - ICD-10 - L03.115, I96, E11.9, N18.6
--- NOTE | 2018-12-05 14:18 | PN_ITS ---
Patient Problems: Active and Suspected Problems (Last Reviewed 11/30/18 @ 02:27 by Pete Ramirez DO) JOSE (acute kidney injury) (Acute) GI bleed (Acute) Subjective: Patient seen and examined. Flat affect. Agreeable to SNF for further therapy given ongoing weakness. - Physical Exam General: Alert, Oriented x3, Cooperative HEENT: Atraumatic, PERRLA, EOMI, Normocephalic Neck: Supple, No JVD, Negative Carotid Bruits Lungs: Clear to auscultation, Diminished Cardiovascular: Regular rate, Regular Rhythm, Normal S1, Normal S2, No murmurs Abdomen: Bowel Sounds Present, Soft, Non Tender, Non-Distended Extremities: No clubbing, No cyanosis, Capillary Refill Less than 3 Seconds, Edema - +2 pitting edema bilateral upper extremities and left lower extremity. Nonpitting right lower extremity. Skin: No rashes, No breakdown, - - Right lower extremity areas of escar, wrapped in gauze dressing Musculoskeletal: No Tenderness to Palpation of Joints or Extremities Neurological: Cranial nerves II-XII grossly intact, Neuro grossly intact Psych/Mental Status: Flat Affect Vital Signs Temp Pulse Resp BP Pulse Ox 97.9 F 67 18 175/77 H 94 12/05/18 08:42 12/05/18 11:19 12/05/18 08:42 12/05/18 08:42 12/05/18 08:42 Oxygen Flow Rate (L/min) 2 Oxygen Delivery Method Room Air Weight: 176 lb 5.917 oz Body Mass Index (BMI) 32.2 Finger Stick Blood Glucose 159 Intake and Output for Last 24 Hours 12/03/18 12/04/18 12/05/18 23:59 23:59 23:59 Intake Total 1999 460 / 460 760 / 760 Output Total Balance 1998 460 / 460 760 / 760 Laboratory Tests Past 24 Hrs 12/04/18 12/05/18 12/05/18 18:38 05:50 05:50 WBC 6.8 RBC 2.98 L Hgb 9.6 L Hct 29.7 L MCV 99.7 H MCH 32.2 H MCHC 32.3 RDW 22.2 H RDW Differential 76.4 H Plt Count 87 L MPV 10.6 Differential Comment SCAN Sodium 135 L Potassium 4.0 Chloride 98 Carbon Dioxide 24.0 BUN 48 H Creatinine 2.37 H Estim Creat Clear Calc 15.97 Est GFR (MDRD) Af Amer 26 L Est GFR (MDRD) Non-Af 21 L BUN/Creatinine Ratio 20.3 H Glucose 129 H Calcium 7.6 L Phosphorus 3.6 B-Natriuretic Peptide Albumin 2.1 L Blood Type O POSITIVE Antibody Screen NEGATIVE Crossmatch See Detail 12/05/18 05:50 WBC RBC Hgb Hct MCV MCH MCHC RDW RDW Differential Plt Count MPV Differential Comment Sodium Potassium Chloride Carbon Dioxide BUN Creatinine Estim Creat Clear Calc Est GFR (MDRD) Af Amer Est GFR (MDRD) Non-Af BUN/Creatinine Ratio Glucose Calcium Phosphorus B-Natriuretic Peptide 496.3 H Albumin Blood Type Antibody Screen Crossmatch POC Glucose 12/05/18 12/05/18 12/04/18 12:19 06:47 22:09 POC Glucose 221 H 124 H 175 H 12/04/18 16:25 POC Glucose 238 H Medical Necessity - Tobacco Use Smoking Status: Never smoker Tobacco Use: Non-smoker Assessment/Plan All Active Problems (Last Reviewed 11/30/18 @ 02:27 by Pete Ramirez DO) JOSE (acute kidney injury) (Acute) GI bleed (Acute) GI bleed (Acute) Acute coronary syndrome (Acute) Non-STEMI (non-ST elevated myocardial infarction) (Acute) Hypercholesterolemia (Acute) Congestive heart failure of unknown etiology (Acute) Abnormal EKG (Acute) 1. Acute kidney injury on chronic kidney disease stage IV-nephrology, Dr. Pearson following. Right IJ catheter placed 11/30/[address] Lawrence. Underwent dialysis X3 days, most recent 12/03/18. Patient did not tolerate dialysis well due to sign ificant hypotension. Trend BMP. Dr. Lawrence following for possible AVF placement. Creatinine significantly improved. Will reattempt dialysis tomorrow with addition of Midodrine and albumin prior to tx. 2. Acute blood loss anemia secondary to GI bleed as result of external hemorrhoids-patient received 1 unit PRBC. Hemoglobin stable. To receive EPO with dialysis. 3. Elevated troponin, history of CAD with multiple stents-cardiology following. Plan is to stabilize patient from renal standpoint and reevaluate angioplasty/stent as outpatient. Continue medical management. Continue aspirin, statin, Plavix, carvedilol. Patient is on Ranexa as well. 4. Chronic diastolic CHF-recent echocardiogram with EF 50%. Diuretic regimen on hold secondary #1. 5. 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 Wound care consulted. Dr. Martinez consulted. Plan for debridement of right lower extremity areas of eschar. 6. Type 2 diabetes [id number] ACHS with sliding scale insulin and Lantus regimen. 7. Hypomagnesemia-replaced per protocol. Resolved. 8. Autoimmune hepatitis-patient on Imuran and budesonide. Follows with Dr. Taylor. 9. Hypertension-continue carvedilol, Imdur, regimen. Hydralazine discontinued due to hypotension with dialysis. 10. Hyperlipidemia-continue statin. 11. GERD-continue PPI. 12. Moderate protein calorie malnutrition-nutrition consult. DVT prophylaxis-SCDs Discharge planning: SNF when stable medically for discharge. This patient was seen by RAMÍREZ Gottlieb under the supervision of Dr. Saleem.
--- NOTE | 2018-12-05 14:19 | DIALYSIS ---
Hemodialysis x 2hrs IUF only. UF -1000mL removed. Pt tolerated tx well BP stable with pretx Midodrine. pt stable Report to Catarina.
--- NOTE | 2018-12-05 15:02 | NURSING ---
wound photo: right lateral lower leg
--- NOTE | 2018-12-05 15:06 | CASEMGMT ---
Social Work Return call from Teresa at [facility] and they are able to accept pt if pt spouse is agreeable to provide transportation. SW informed pt and he is agreeable to provide transportation. Precert has not been started at this time as pt is not medically ready for d/c. Plan: [facility], will start precert closer to time pt is medically ready ROYA Lora
[2018-12-05 18:20] LABS: Bedside Glucose 212 mg/dL (70-110)
[2018-12-06] VITALS (13 sets, daily range): BP systolic 141–169; BP diastolic 57–76; PULSE 84–114; RESP 16–20; TEMP 36.6–36.9; O2SAT 94–98
[2018-12-06 01:01] LABS: Bedside Glucose 192 mg/dL (70-110)
[2018-12-06] MEDS: Acetaminophen 325 MG Tablet 650 MG PO ×4 (04:04→22:53)
[2018-12-06 06:50] LABS: Bedside Glucose 150 mg/dL (70-110)
[2018-12-06 07:30] LABS: Anion Gap 11 (5-15); BUN 55 mg/dL (7-18); BUN/Creat Ratio 21.9 RATIO (10-20); Calcium,Total 7.6 mg/dL (8.5-10.1); Chloride 99 mmol/L (98-107); Creatinine, Serum 2.51 mg/dL (0.55-1.02); EST Glomerular Filtration Rate 20 mL/min (>60); Est Glom Filt Rate - Afr Amer 24 mL/min (>60); Estimated Creatinine Clearance 15.08 ml/min; Glucose 148 mg/dL (74-106); Potassium 3.9 mmol/L (3.5-5.1); Prealbumin 10.2 mg/dL (20.0-40.0); Sodium Level 134 mmol/L (136-145)
[2018-12-06] MEDS: azaTHIOprine 50 MG Tablet 100 MG PO (08:23)
[2018-12-06] MEDS: Folic Acid/Vitamin B Comp W-C 1 Capsule 1 CAP PO (08:24)
[2018-12-06] MEDS: Pantoprazole Sodium 20 MG Tablet PO (08:24)
[2018-12-06] MEDS: Aspirin 81 MG TAB.CHEW PO (08:25)
[2018-12-06] MEDS: Nepro Liquid 120 ML LIQUID PO ×4 (08:25→22:54)
[2018-12-06] MEDS: Clopidogrel Bisulfate 75 MG Tablet PO (08:25)
[2018-12-06] MEDS: Ranolazine 500 MG Tablet PO ×2 (08:25→22:54)
[2018-12-06] MEDS: Insulin Lispro 100 UNIT/ML INSULN.PEN SC ×4 (08:25→22:54)
[2018-12-06 08:39] LABS: Hemoglobin A1c 5.7 % (4.2-6.3)
--- NOTE | 2018-12-06 09:59 | PCM.PN.REN ---
Patient Problems: Active and Suspected Problems (Last Reviewed 11/30/18 @ 02:27 by Pete Ramirez DO) JOSE (acute kidney injury) (Acute) GI bleed (Acute) Subjective: feeling a little better. Poor appetite. Denies chest pain overnight. Dialysis today. - Physical Exam General: Alert, Oriented x3, Cooperative Lungs: Clear to auscultation Cardiovascular: Regular rate, Murmur Abdomen: Bowel Sounds Present, Soft, Non Tender Extremities: Edema Skin: Ulcer/ Wound - rt leg Musculoskeletal: - - weakness Neurological: - - no tremor Psych/Mental Status: Alert and oriented to time, place, person, mood and affect Vital Signs Temp Pulse Resp BP Pulse Ox 98.4 F 89 17 143/60 H 94 12/06/18 03:48 12/06/18 06:53 12/06/18 03:48 12/06/18 03:48 12/06/18 08:00 Oxygen Flow Rate (L/min) 2 Oxygen Delivery Method Room Air Weight: 80 kg Body Mass Index (BMI) 32.2 Finger Stick Blood Glucose 159 Intake and Output for Last 24 Hours 12/04/18 12/05/18 12/06/18 23:59 23:59 23:59 Intake Total 460 / 460 1240 / 1240 140 / 140 Output Total 0 / 0 0 / 0 Balance 460 / 460 1240 / 1240 140 / 140 Laboratory Tests Past 24 Hrs 12/06/18 12/06/18 06:00 06:00 Sodium 134 L Potassium 3.9 Chloride 99 Carbon Dioxide 24.0 Anion Gap 11 BUN 55 H Creatinine 2.51 H Estim Creat Clear Calc 15.08 Est GFR (MDRD) Af Amer 24 L Est GFR (MDRD) Non-Af 20 L BUN/Creatinine Ratio 21.9 H Glucose 148 H Hemoglobin A1c 5.7 Calcium 7.6 L Prealbumin 10.2 L POC Glucose 12/06/18 12/05/18 12/05/18 06:47 22:24 16:01 POC Glucose 150 H 192 H 212 H 12/05/18 12:19 POC Glucose 221 H Medical Necessity - Tobacco Use Smoking Status: Never smoker Tobacco Use: Non-smoker Assessment/Plan All Active Problems (Last Reviewed 11/30/18 @ 02:27 by Pete Ramirez DO) JOSE (acute kidney injury) (Acute) GI bleed (Acute) GI bleed (Acute) Acute coronary syndrome (Acute) Non-STEMI (non-ST elevated myocardial infarction) (Acute) Hypercholesterolemia (Acute) Congestive heart failure of unknown etiology (Acute) Abnormal EKG (Acute) 1. 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 Pt oligoanuric. HD today. Pre-medicate with midodrine with prn iv albumin. 2. s/p stent LAD, ACS on plavix last admit 3. DM2 primary service mgmt 4. HTN stable, hold for hypotension on dialysis. 5. Acute GI bleed on plavix, ASA. Continue ESTEPHANIE therapy on dialysis. 6. Cellulitis RLE continue with wound care. Consult plastic surgery for skin biopsy to evaluate for calciphylaxis. Consider sodium thiosulfate. 7. Moderate protein calorie malnutrition albumin 2.2. Continue protein supplements DW pt, pt spouse at bedside
[2018-12-06 11:51] LABS: Bedside Glucose 214 mg/dL (70-110)
--- NOTE | 2018-12-06 11:52 | CASEMGMT ---
JAZLYN called Teresa at [facility] and left her a voice mail letting her know patient is going to surgery tomorrow. However, it is just supposed to be for a biopsy. JAZLYN told her SW does not know at this time if she will need a wound vac, but SW can let her know when SW knows more. Ludmila BOO MSW
--- NOTE | 2018-12-06 14:00 | CASEMGMT ---
SW met with patient and her . Introduced self and role at [facility]. SW asked how patient was doing with everything. Her was sitting by her and holding her hand the whole time. SW listened and provided emotional support to both patient and her . SW said SW will check in with them tomorrow. They thanked SW for checking in with them. Ludmila BOO MSW
--- NOTE | 2018-12-06 14:08 | PCM.PROGNOTE ---
Patient Problems: Active and Suspected Problems (Last Reviewed 11/30/18 @ 02:27 by Pete Ramirez DO) JOSE (acute kidney injury) (Acute) GI bleed (Acute) Subjective: Patient seen and examined. Reports feeling depressed and frustrated with her current health state. To undergo dialysis today. at bedside providing support. Patient agreeable to surgery on right lower extremity with Dr. Martinez which will take place tomorrow. - Physical Exam General: Alert, Oriented x3, Cooperative HEENT: Atraumatic, PERRLA, EOMI, Normocephalic Neck: Supple, No JVD, Negative Carotid Bruits Lungs: Clear to auscultation, Diminished Cardiovascular: Regular rate, Regular Rhythm, Normal S1, Normal S2, No murmurs Abdomen: Bowel Sounds Present, Soft, Non Tender, Non-Distended Extremities: No clubbing, No cyanosis, Capillary Refill Less than 3 Seconds, Edema - Edema - +2 pitting edema bilateral upper extremities and left lower extremity. Nonpitting right lower extremity. Skin: No rashes, No breakdown, - - Right lower extremity areas of eschar, wrapped in gauze dressing Musculoskeletal: No Tenderness to Palpation of Joints or Extremities Neurological: Cranial nerves II-XII grossly intact, Neuro grossly intact Psych/Mental Status: Flat Affect Vital Signs Temp Pulse Resp BP Pulse Ox 98.1 F 94 16 147/57 H 97 12/06/18 09:48 12/06/18 11:00 12/06/18 09:48 12/06/18 09:48 12/06/18 09:48 Oxygen Flow Rate (L/min) 2 Oxygen Delivery Method Room Air Weight: 176 lb 5.917 oz Body Mass Index (BMI) 32.2 Finger Stick Blood Glucose 159 Intake and Output for Last 24 Hours 12/04/18 12/05/18 12/06/18 23:59 23:59 23:59 Intake Total 460 / 460 1240 / 1240 380 / 380 Output Total 0 / 0 0 / 0 Balance 460 / 460 1240 / 1240 380 / 380 Laboratory Tests Past 24 Hrs 12/06/18 12/06/18 06:00 06:00 Sodium 134 L Potassium 3.9 Chloride 99 Carbon Dioxide 24.0 Anion Gap 11 BUN 55 H Creatinine 2.51 H Estim Creat Clear Calc 15.08 Est GFR (MDRD) Af Amer 24 L Est GFR (MDRD) Non-Af 20 L BUN/Creatinine Ratio 21.9 H Glucose 148 H Hemoglobin A1c 5.7 Calcium 7.6 L Prealbumin 10.2 L POC Glucose 12/06/18 12/06/18 12/05/18 11:19 06:47 22:24 POC Glucose 214 H 150 H 192 H 12/05/18 16:01 POC Glucose 212 H Medical Necessity - Tobacco Use Smoking Status: Never smoker Tobacco Use: Non-smoker Assessment/Plan All Active Problems (Last Reviewed 11/30/18 @ 02:27 by Pete Ramirez DO) JOSE (acute kidney injury) (Acute) GI bleed (Acute) GI bleed (Acute) Acute coronary syndrome (Acute) Non-STEMI (non-ST elevated myocardial infarction) (Acute) Hypercholesterolemia (Acute) Congestive heart failure of unknown etiology (Acute) Abnormal EKG (Acute) 1. Acute kidney injury on chronic kidney disease stage IV-nephrology, Dr. Pearson following. Right IJ catheter placed 11/30/[address] Lawrence. Patient hs not tolerated dialysis well due to significant hypotension. Trend BMP. Dr. Lawrence following for possible AVF placement. Creatinine significantly improved. Will reattempt dialysis today with addition of Midodrine and albumin prior to tx. 2. Acute blood loss anemia secondary to GI bleed as result of external hemorrhoids-patient received 1 unit PRBC. Hemoglobin stable. To receive EPO with dialysis. 3. Elevated troponin, history of CAD with multiple stents-cardiology following. Plan is to stabilize patient from renal standpoint and reevaluate angioplasty/stent as outpatient. Continue medical management. Continue aspirin, statin, Plavix, carvedilol. Patient is on Ranexa as well. 4. Chronic diastolic CHF-recent echocardiogram with EF 50%. Diuretic regimen on hold secondary #1. 5. 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 Wound care consulted. Dr. Martinez consulted. Plan for debridement of right lower extremity areas of eschar 12/07/18. 6. Type 2 diabetes [id number] ACHS with sliding scale insulin and Lantus regimen. 7. Hypomagnesemia-replaced per protocol. Resolved. 8. Autoimmune hepatitis-patient on Imuran and budesonide. Follows with Dr. Taylor. 9. Hypertension-continue carvedilol, Imdur, regimen. Hydralazine discontinued due to hypotension with dialysis. 10. Hyperlipidemia-continue statin. 11. GERD-continue PPI. 12. Moderate protein calorie malnutrition-nutrition consult. DVT prophylaxis-SCDs Discharge planning: SNF when stable medically for discharge. This patient was seen by RAMÍREZ Gottlieb under the supervision of Dr. Saleem.
[2018-12-06 16:20] LABS: Bedside Glucose 227 mg/dL (70-110)
[2018-12-06] MEDS: Midodrine HCl 5 MG Tablet 10 MG PO (17:06)
[2018-12-06] MEDS: Albumin Human 25% (100 mL) 25 GM/100 ML BAG IV (19:20)
[2018-12-06] MEDS: Heparin 10,000 UNITS/10 ML Vial IV (21:47)
--- NOTE | 2018-12-06 22:30 | DIALYSIS ---
Hemodialysis completed. Albumin was given for hypotension, Stable BP's with fluid removal afterwards. -1100ml off. CVC ran w/o difficulty. CVC closed with heparin to each lumen fill volume. at bedside. Verbal report to Rose Marie BELTRAN at bedside.
[2018-12-07] VITALS (16 sets, daily range): BP systolic 125–156; BP diastolic 53–70; PULSE 81–104; RESP 14–20; TEMP 36.7–37.1; O2SAT 95–100; BMI 32.2
[2018-12-07 00:36] LABS: Bedside Glucose 152 mg/dL (70-110)
[2018-12-07] MEDS: Acetaminophen 325 MG Tablet 650 MG PO ×2 (05:12→11:48)
--- NOTE | 2018-12-07 05:55 | EKG12_ITS ---
Test Reason : AM Blood Pressure : / mmHG Vent. Rate : 095 BPM Atrial Rate : 095 BPM P-R Int : 156 ms QRS Dur : 146 ms QT Int : 438 ms P-R-T Axes : 006 -26 000 degrees QTc Int : 550 ms Normal sinus rhythm Possible Left atrial enlargement Right bundle branch block Abnormal ECG When compared with ECG of 03-DEC-2018 16:15, No significant change was found Confirmed by ROCHELLE BRYSON, TONIA ([id number]), market editor OPHELIA SIERRA ([id number] on 12/09/2018 1:52:23 PM Referred By: SAKSHI Confirmed By:TONIA BYRD MD
[2018-12-07 06:23] LABS: International Normalized Ratio 1.3; Prothrombin Time (Protime)PT. 16.1 SECONDS (11.7-14.9)
[2018-12-07 06:24] LABS: Hematocrit 26.4 % (37-47); Hemoglobin 8.8 g/dl (12.0-15.0); Mean Corp Hgb Conc 33.3 g/gl (32-36); Mean Corpuscular Hgb 33.2 pg (27.0-32.0); Mean Corpuscular Volume 99.6 fL (81-99); Mean Platelet Vol. 10.7 fl (6.2-12.0); Partial Thromboplast Time 38.5 Seconds (24.1-36.2); Platelet Count 62 K/mm3 (150-450); RBC Distribution Width CV 21.7 % (11.6-14.6); RBC Distribution Width SD 74.6 fl (35.1-43.9); Red Blood Count 2.65 M/mm3 (4.2-5.4); White Blood Count 6.8 K/mm3 (4.4-11.0)
[2018-12-07 06:27] LABS: Scan Indicated on CBC? Y/N YES- FLAGS NOTED
[2018-12-07 06:35] LABS: Anion Gap 12 (5-15); BUN 34 mg/dL (7-18); BUN/Creat Ratio 16.7 RATIO (10-20); Calcium,Total 7.3 mg/dL (8.5-10.1); Chloride 101 mmol/L (98-107); Creatinine, Serum 2.04 mg/dL (0.55-1.02); EST Glomerular Filtration Rate 25 mL/min (>60); Est Glom Filt Rate - Afr Amer 30 mL/min (>60); Estimated Creatinine Clearance 18.56 ml/min; Glucose 124 mg/dL (74-106); Potassium 3.9 mmol/L (3.5-5.1); Sodium Level 135 mmol/L (136-145)
[2018-12-07 06:45] LABS: Bedside Glucose 135 mg/dL (70-110)
--- NOTE | 2018-12-07 09:03 | PCM.PN.REN ---
Patient Problems: Active and Suspected Problems (Last Reviewed 11/30/18 @ 02:27 by Pete Ramirez DO) JOSE (acute kidney injury) (Acute) GI bleed (Acute) Subjective: dialysis yesterday with 1L fluid removal. Lowest BP reported in the 90's systolic. Scheduled for wound biopsy, debridement today. Still with leg pain - Physical Exam General: Alert, Oriented x3, Cooperative, No apparent distress Cardiovascular: Regular rate, Murmur Abdomen: Bowel Sounds Present, Soft, Non Tender Extremities: Edema - anasarca Psych/Mental Status: Alert and oriented to time, place, person, mood and affect Vital Signs Temp Pulse Resp BP Pulse Ox 98.4 F 92 20 H 149/65 H 96 12/07/18 04:44 12/07/18 07:00 12/07/18 04:44 12/07/18 04:44 12/07/18 04:44 Oxygen Flow Rate (L/min) 2 Oxygen Delivery Method Room Air Weight: 86.1 kg Body Mass Index (BMI) 32.2 Finger Stick Blood Glucose 159 Intake and Output for Last 24 Hours 12/05/18 12/06/18 12/07/18 23:59 23:59 23:59 Intake Total 1240 / 1240 730 / 730 480 / 480 Output Total 0 / 0 1100 / 1100 1100 / 1100 Balance 1240 / 1240 -370 / -370 -620 / -620 Laboratory Tests Past 24 Hrs 12/07/18 12/07/18 12/07/18 06:04 06:04 06:04 WBC 6.8 RBC 2.65 L Hgb 8.8 L Hct 26.4 L MCV 99.6 H MCH 33.2 H MCHC 33.3 RDW 21.7 H RDW Differential 74.6 H Plt Count 62 L MPV 10.7 Differential Comment PT 16.1 H INR 1.3 APTT 38.5 H Sodium 135 L Potassium 3.9 Chloride 101 Carbon Dioxide 22.0 Anion Gap 12 BUN 34 H Creatinine 2.04 H Estim Creat Clear Calc 18.56 Est GFR (MDRD) Af Amer 30 L Est GFR (MDRD) Non-Af 25 L BUN/Creatinine Ratio 16.7 Glucose 124 H Calcium 7.3 L POC Glucose 12/07/18 12/06/18 12/06/18 06:42 22:47 16:03 POC Glucose 135 H 152 H 227 H 12/06/18 11:19 POC Glucose 214 H Medical Necessity - Tobacco Use Smoking Status: Never smoker Tobacco Use: Non-smoker Assessment/Plan All Active Problems (Last Reviewed 11/30/18 @ 02:27 by Pete Ramirez DO) JOSE (acute kidney injury) (Acute) GI bleed (Acute) GI bleed (Acute) Acute coronary syndrome (Acute) Non-STEMI (non-ST elevated myocardial infarction) (Acute) Hypercholesterolemia (Acute) Congestive heart failure of unknown etiology (Acute) Abnormal EKG (Acute) 1. 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 Pt oligoanuric. HD TTS. Pre-medicate with midodrine with dialysis. 2. s/p stent LAD, ACS on plavix last admit 3. DM2 primary service mgmt 4. HTN stable, hold for hypotension on dialysis. 5. Acute GI bleed on plavix, ASA. Continue ESTEPHANIE therapy on dialysis. 6. Cellulitis RLE continue with wound care. Consult plastic surgery for skin biopsy to evaluate for calciphylaxis. Consider sodium thiosulfate. 7. Moderate protein calorie malnutrition albumin 2.2. Continue protein supplements DW pt, pt spouse at bedside
--- NOTE | 2018-12-07 10:35 | CASEMGMT ---
SW met with patient and her . Sat and talked with them for a little while. Listened and provided emotional support. They thanked SW for stopping in and they said everyone at [facility] has been so helpful and supportive. Ludmila SANDOVAL
--- NOTE | 2018-12-07 12:40 | NURSING ---
report called to ARELIS BELTRAN
--- NOTE | 2018-12-07 13:11 | PN_ITS ---
Patient Problems: Active and Suspected Problems (Last Reviewed 11/30/18 @ 02:27 by Pete Ramirez DO) JOSE (acute kidney injury) (Acute) GI bleed (Acute) Subjective: Patient seen and examined. Reports she tolerated dialysis yesterday better than prior treatments. Reports anxiety related to surgery this afternoon. Provided support. Denies other current complaints. - Physical Exam General: Alert, Oriented x3, Cooperative HEENT: Atraumatic, PERRLA, EOMI, Normocephalic Neck: Supple, No JVD, Negative Carotid Bruits Lungs: Clear to auscultation, Diminished Cardiovascular: Regular rate, Regular Rhythm, Normal S1, Normal S2, No murmurs Abdomen: Bowel Sounds Present, Soft, Non Tender, Non-Distended Extremities: No clubbing, No cyanosis, Edema - Edema - +2 pitting edema bilateral upper extremities and left lower extremity. Nonpitting right lower extremity. Skin: No rashes, No breakdown, - - Right lower extremity areas of eschar, wrapped in gauze dressing Musculoskeletal: No Tenderness to Palpation of Joints or Extremities Neurological: Cranial nerves II-XII grossly intact, Neuro grossly intact Psych/Mental Status: Flat Affect Vital Signs Temp Pulse Resp BP Pulse Ox 98.0 F 90 14 156/68 H 95 12/07/18 11:47 12/07/18 11:47 12/07/18 11:47 12/07/18 11:47 12/07/18 11:47 Oxygen Flow Rate (L/min) 2 Oxygen Delivery Method Room Air Weight: 189 lb 13.088 oz Body Mass Index (BMI) 32.2 Finger Stick Blood Glucose 159 Intake and Output for Last 24 Hours 12/05/18 12/06/18 12/07/18 23:59 23:59 23:59 Intake Total 1240 / 1240 730 / 730 600 / 600 Output Total 0 / 0 1100 / 1100 1100 / 1100 Balance 1240 / 1240 -370 / -370 -500 / -500 Laboratory Tests Past 24 Hrs 12/07/18 12/07/18 12/07/18 06:04 06:04 06:04 WBC 6.8 RBC 2.65 L Hgb 8.8 L Hct 26.4 L MCV 99.6 H MCH 33.2 H MCHC 33.3 RDW 21.7 H RDW Differential 74.6 H Plt Count 62 L MPV 10.7 Differential Comment PT 16.1 H INR 1.3 APTT 38.5 H Sodium 135 L Potassium 3.9 Chloride 101 Carbon Dioxide 22.0 Anion Gap 12 BUN 34 H Creatinine 2.04 H Estim Creat Clear Calc 18.56 Est GFR (MDRD) Af Amer 30 L Est GFR (MDRD) Non-Af 25 L BUN/Creatinine Ratio 16.7 Glucose 124 H Calcium 7.3 L POC Glucose 12/07/18 12/06/18 12/06/18 06:42 22:47 16:03 POC Glucose 135 H 152 H 227 H Medical Necessity - Tobacco Use Smoking Status: Never smoker Tobacco Use: Non-smoker Assessment/Plan All Active Problems (Last Reviewed 11/30/18 @ 02:27 by Pete Ramirez DO) JOSE (acute kidney injury) (Acute) GI bleed (Acute) GI bleed (Acute) Acute coronary syndrome (Acute) Non-STEMI (non-ST elevated myocardial infarction) (Acute) Hypercholesterolemia (Acute) Congestive heart failure of unknown etiology (Acute) Abnormal EKG (Acute) 1. Acute kidney injury on chronic kidney disease stage IV-nephrology, Dr. Pearson following. Right IJ catheter placed 11/30/[address] Lawrence. Patient has not tolerated dialysis well due to significant hypotension. Trend BMP. Dr. Lawrence following for possible AVF placement. Creatinine significantly improved. Dialysis 12/06/18 with addition of Midodrine and albumin prior to tx. Pt tolerance improved, 1L removed. 2. Acute blood loss anemia secondary to GI bleed as result of external hemorrhoids-patient received 1 unit PRBC. Hemoglobin stable. EPO with dialysis. 3. Elevated troponin, history of CAD with multiple stents-cardiology following. Plan is to stabilize patient from renal standpoint and reevaluate angiopl asty/stent as outpatient. Continue medical management. Continue aspirin, statin, Plavix, carvedilol. Patient is on Ranexa as well. 4. Chronic diastolic CHF-recent echocardiogram with EF 50%. Diuretic regimen on hold secondary #1. 5. 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 Wound care consulted. Dr. Martinez consulted. Plan for debridement of right lower extremity areas of eschar 12/07/18. 6. Type 2 diabetes [id number] ACHS with sliding scale insulin and Lantus regimen. 7. Hypomagnesemia-replaced per protocol. Resolved. 8. Autoimmune hepatitis-patient on Imuran and budesonide. Follows with Dr. Taylor. 9. Hypertension-continue carvedilol, Imdur, regimen. Hydralazine discontinued due to hypotension with dialysis. 10. Hyperlipidemia-continue statin. 11. GERD-continue PPI. 12. Moderate protein calorie malnutrition-nutrition consult. DVT prophylaxis-SCDs Discharge planning: SNF, W when stable medically for discharge. Depending on how extensive RLE wound is following surgery, she may benefit from LTAC for wound care/continued dialysis. This patient was seen by RAMÍREZ Gottlieb under the supervision of Dr. Saleem.
--- NOTE | 2018-12-07 14:45 | NURSING ---
Pt is currently off the unit for surgery.
--- NOTE | 2018-12-07 15:06 | PCM.OPRPT ---
Report of Operation Date of Procedure: 12/07/18 Pre-Operative Diagnosis: 1. Necrotic eschar cluster wound infection right lateral leg, possible calciphylaxis. 2. ESRD on dialysis. 3. Diabetes mellitus. 4. CAD. 5. Recent IL with placement of a stent. Post-Operative Diagnosis: Same. Surgery/Procedure Performed:: Surgical preparation right lateral leg with incision and drainage and excisional debridement necrotic eschar cluster wound infection (32 cm2). Description of Surgical Findings:: The patient is a 78 year old F who was admitted on 11/30/18 because of malaise and weakness and a GI bleed. She recently had an IL and had a stent placed. She also has ESRD and is on dialysis every Wednesday, , and Wednesday. She has been having trouble with hypotension during dialysis. Her WBC on admission was 10.1 and is now 6.8. Her Hgb on admission was 10.0 and is now 9.6. Her BUN/Creat on admission was 127/3.41 and is now 48/2.37. She has been developing increasing pain in her right lateral leg with associated necrotic eschar cluster and surrounding contusion. There is concern of calciphylaxis. If present, medical treatment through the dialysate can be done. I was asked to evaluate this patient for surgical options for treatment to obtain tissue for Pathology to evaluate for calciphylaxis. Patient was informed of the risks and complications of the procedure including alternatives to surgery. These were discussed with the patient personally. Patient voices understanding and wishes to proceed. Size of defect right lateral leg - 8 x 4 x 1 cm. corporate counselor: None Type of Anesthesia:: Local MAC - xylocaine with epinephrine and IV sedation. Specimen's removed: Necrotic eschar cluster wound infection right lateral leg to Pathology and Microbiology. Drains: None. Estimated Blood Loss (mL): 20 ml. Description of Procedure: Patient was taken to OR in supine position and was given IV sedation. The right leg was prepped and draped in the usual fashion. SCD's were placed for DVT prophylaxis. Perioperative antibiotics were given intravenously. The right lateral leg eschar cluster was infiltrated with xylocaine and epinephrine. After waiting 5 minutes for the anesthetic to take effect, I proceeded with an incision and drainage of the area. I incised just around the necrotic eschar cluster. The bruised tissue at the periphery was left alone hoping to improve with time. If the bruised skin progresses to necrosis in the future, then additional operative excision and debridement would be needed at that time. For now, a small amount of pus was seen. A lot of fat necrosis was seen extending to the fascia. The necrotic eschar cluster was excised and debrided along with the fat necrosis. Some of the tissue was sent to Microbiology for culture. A positive culture will necessitate antibiotic therapy. The rest of the tissue will be sent to Pathology for analysis to rule out carcinoma and to evaluate for calciphylaxis. The wound was irrigated with saline. Hemostasis was obtained with electrocautery. The size of the defect after incision and drainage and excisional debridement was 8 x 4 x 1 cm or 32 cm2. The wound was dressed with Mepitel nonadherent dressing followed by 4x4 gauze with Betadine followed by dry 4x4 gauze and a Kerlix gauze followed by a compression DEWEY wrap. Patient tolerated the procedure well and was sent to PACU in satisfactory condition. Patient will be sent upstairs for continued postop care. The VAC will be placed tomorrow. She continues her dialysis tomorrow. Grafts/Implants Used: None. - Complications None. - Admit VTE Documentation VTE Present on Admission: No VTE Mechan Device Prophylaxis: SCD's VTE Pharm Prophylaxis ordered?: Yes Code Visit Surgery Charges CPT - 00668 ICD-10 - S81.801A, I96, M79.89, L03.115, L94.2, E11.9, N18.6 77827 I96, M79.89, L03.115, L94.2, E11.9, N18.6
[2018-12-07 16:01] LABS: Bedside Glucose 98 mg/dL (70-110)
--- NOTE | 2018-12-07 16:18 | LES_PTH ---
PATIENT: JUN JOHNSON LOC: [facility] U#:[id number] AGE/SX: 78/F ROOM: [facility] RE11/30/[address]: Dr. Moon Jaramillo MD : [id number] BED: 1 DIS: 12/14/2018 SPEC #: [id number] RECD: 12/07/18 16:18 STATUS: TORIN REVerito #: [id number] STERLING: 12/07/18 16:[address]: Forest Martinez DEPT: SURGICAL PATHOLOGY RECD BY: Rmaírez Barrios ENTERED: 12/08/18 07:14 SP TYPE: Lesion OTHR DR: MD Dr. Irma Brody, MD Dr. Pete Rocha Dr., DO MD Dr. Xavier Bingham, DO Dr. Darinel Lawrence MD Tissues: Skin of leg, NOS Procedures: Surgery Specimen Level IV Comments: @ Ordering doctor for SUIV edited from to @ by CHUCKOD at 12/08/18 1200 @ Submitting doctor edited from to @ by RGOOD at 12/08/18 1209 HEADER OPERATION: Surgical preparation right lateral leg with incision and drainage PRE-OP DIAGNOSIS: Necrotic eschar cluster wound infection right lateral leg, possible calciphylaxis TISSUE SUBMITTED: Necrotic eschar cluster wound infection right lateral leg MICROSCOPIC DIAGNOSIS Skin and soft tissue of right lateral leg, excision: Ulceration with associated acute and chronic inflammation and granulation. Focal dystrophic calcifications. AM:chica 12/09/18 COMMENT This case was reviewed and diagnosis discussed with Dr. Pearson on 12/12/18. MICROSCOPIC DESCRIPTION Slides are reviewed. GROSS DESCRIPTION Received in fixative is one container labeled with the patient's name and designated infected necrotic right leg. The specimen consists of an irregular fragment of necrotic dark negron-pink soft tissue measuring 6.5 x 2.5 x 0.6 cm. The cutaneous surface has a dusky klein color. Serial sections do not reveal mass lesions. Engineering Consultant sections are submitted in two cassettes. / AM:chica 12/08/18 TC:2 CPT: 36013
[2018-12-07] MEDS: Aspirin 81 MG TAB.CHEW PO (16:24)
[2018-12-07] MEDS: Folic Acid/Vitamin B Comp W-C 1 Capsule 1 CAP PO (16:25)
[2018-12-07] MEDS: azaTHIOprine 50 MG Tablet 100 MG PO (16:25)
[2018-12-07] MEDS: Pantoprazole Sodium 20 MG Tablet PO (16:26)
[2018-12-07] MEDS: Clopidogrel Bisulfate 75 MG Tablet PO (16:26)
[2018-12-07] MEDS: Nepro Liquid 120 ML LIQUID PO ×2 (16:26→22:00)
[2018-12-07] MEDS: Ranolazine 500 MG Tablet PO ×2 (16:26→22:01)
[2018-12-07] MEDS: oxyCODONE 5 MG Tablet 10 MG PO (18:17)
[2018-12-07 22:10] LABS: Bedside Glucose 113 mg/dL (70-110)
[2018-12-07 22:10] LABS: Bedside Glucose 95 mg/dL (70-110)
[2018-12-08] VITALS (12 sets, daily range): BP systolic 108–155; BP diastolic 53–74; PULSE 96–110; RESP 14–18; TEMP 36.9–37.3; O2SAT 93–95; BMI 32.2
[2018-12-08 05:39] LABS: Hematocrit 29.8 % (37-47); Hemoglobin 9.7 g/dl (12.0-15.0); Mean Corp Hgb Conc 32.6 g/gl (32-36); Mean Corpuscular Hgb 33.2 pg (27.0-32.0); Mean Corpuscular Volume 102.1 fL (81-99); Mean Platelet Vol. 11.3 fl (6.2-12.0); Platelet Count 67 K/mm3 (150-450); RBC Distribution Width CV 21.6 % (11.6-14.6); RBC Distribution Width SD 75.8 fl (35.1-43.9); Red Blood Count 2.92 M/mm3 (4.2-5.4); White Blood Count 7.4 K/mm3 (4.4-11.0)
[2018-12-08 05:40] LABS: Scan Indicated on CBC? Y/N YES- FLAGS NOTED
[2018-12-08 05:51] LABS: Anion Gap 12 (5-15); BUN 44 mg/dL (7-18); BUN/Creat Ratio 16.9 RATIO (10-20); Calcium,Total 7.3 mg/dL (8.5-10.1); Chloride 99 mmol/L (98-107); Creatinine, Serum 2.61 mg/dL (0.55-1.02); EST Glomerular Filtration Rate 19 mL/min (>60); Est Glom Filt Rate - Afr Amer 23 mL/min (>60); Glucose 83 mg/dL (74-106); Sodium Level 135 mmol/L (136-145)
[2018-12-08] MEDS: Acetaminophen 325 MG Tablet 650 MG PO (06:12)
[2018-12-08 06:55] LABS: Bedside Glucose 84 mg/dL (70-110)
[2018-12-08 07:00] LABS: Differential Comment SCAN
[2018-12-08] MEDS: oxyCODONE 5 MG Tablet 10 MG PO (07:48)
--- NOTE | 2018-12-08 08:56 | CASEMGMT ---
This RN CM [facility] and when she may be coming to start OP dialysis. Advised [facility] that this RN CM would update them once wound RN/surgeon rounds today, voices understanding. Julio César RN CM
[2018-12-08] MEDS: Pantoprazole Sodium 20 MG Tablet PO (09:15)
[2018-12-08] MEDS: Clopidogrel Bisulfate 75 MG Tablet PO (09:15)
[2018-12-08] MEDS: Ranolazine 500 MG Tablet PO ×2 (09:15→21:29)
[2018-12-08] MEDS: azaTHIOprine 50 MG Tablet 100 MG PO (09:15)
[2018-12-08] MEDS: Folic Acid/Vitamin B Comp W-C 1 Capsule 1 CAP PO (09:16)
[2018-12-08] MEDS: Aspirin 81 MG TAB.CHEW PO (09:16)
[2018-12-08] MEDS: Nepro Liquid 120 ML LIQUID PO ×3 (09:17→17:32)
[2018-12-08] MEDS: Midodrine HCl 5 MG Tablet 10 MG PO (09:51)
--- NOTE | 2018-12-08 11:33 | NURSING ---
wound photo: right lateral lower leg
[2018-12-08 11:40] LABS: Bedside Glucose 79 mg/dL (70-110)
--- NOTE | 2018-12-08 12:23 | PCM.PN.REN ---
Patient Problems: Active and Suspected Problems (Last Reviewed 11/30/18 @ 02:27 by Pete Ramirez DO) JOSE (acute kidney injury) (Acute) GI bleed (Acute) Subjective: seen on dialysis. BP 90's with 1L fluid removal. Received oxycodone for rt leg pain prior to dialysis. Heparin on hold with dialysis. Plt low. - Physical Exam General: Alert, Oriented x3, Cooperative, - - discomfort for pain Extremities: Edema Psych/Mental Status: Normal Affect, Appropriate, Alert and oriented to time, place, person, mood and affect Vital Signs Temp Pulse Resp BP Pulse Ox 99.0 F 97 16 108/53 L 93 12/08/18 09:59 12/08/18 09:59 12/08/18 09:59 12/08/18 09:59 12/08/18 09:59 Oxygen Flow Rate (L/min) 6 Oxygen Delivery Method Room Air Weight: 86.3 kg Body Mass Index (BMI) 32.2 Finger Stick Blood Glucose 159 Intake and Output for Last 24 Hours 12/06/18 12/07/18 12/08/18 23:59 23:59 23:59 Intake Total 730 / 730 1480 / 1480 720 / 720 Output Total 1100 / 1100 1100 / 1100 Balance -370 / -370 380 / 380 720 / 720 Microbiology Past 72 Hours 12/07/18 15:27 Gram Stain - Final Tissue - Leg, Right Wound Culture - Preliminary No growth-Final to follow Laboratory Tests Past 24 Hrs 12/08/18 12/08/18 05:25 05:25 WBC 7.4 RBC 2.92 L Hgb 9.7 L Hct 29.8 L MCV 102.1 H MCH 33.2 H MCHC 32.6 RDW 21.6 H RDW Differential 75.8 H Plt Count 67 L MPV 11.3 Differential Comment SCAN Sodium 135 L Potassium 4.0 Chloride 99 Carbon Dioxide 24.0 Anion Gap 12 BUN 44 H Creatinine 2.61 H Estim Creat Clear Calc 14.50 Est GFR (MDRD) Af Amer 23 L Est GFR (MDRD) Non-Af 19 L BUN/Creatinine Ratio 16.9 Glucose 83 Calcium 7.3 L POC Glucose 12/08/18 12/08/18 12/07/18 11:30 06:50 21:56 POC Glucose 79 84 95 12/07/18 12/07/18 15:53 11:42 POC Glucose 98 113 H Medical Necessity - Tobacco Use Smoking Status: Never smoker Tobacco Use: Non-smoker Assessment/Plan All Active Problems (Last Reviewed 11/30/18 @ 02:27 by Pete Ramirez DO) JOSE (acute kidney injury) (Acute) GI bleed (Acute) GI bleed (Acute) Acute coronary syndrome (Acute) Non-STEMI (non-ST elevated myocardial infarction) (Acute) Hypercholesterolemia (Acute) Congestive heart failure of unknown etiology (Acute) Abnormal EKG (Acute) 1. 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 Pt oligoanuric. HD TTS. Pre-medicate with midodrine with dialysis. 2. s/p stent LAD, ACS on plavix last admit 3. DM2 primary service mgmt 4. HTN stable, hold for hypotension on dialysis. 5. Anemia, Acute GI bleed on plavix, ASA. Continue ESTEPHANIE therapy on dialysis. 6. Cellulitis RLE continue with wound care. s/p debridement and skin biopsy to evaluate for calciphylaxis 7. Thrombocytopenia possibly due to consumption. recheck next visit. REX pt, pt spouse at bedside
[2018-12-08 12:40] LABS: Bedside Glucose 74 mg/dL (70-110)
[2018-12-08] MEDS: Heparin 10,000 UNITS/10 ML Vial IV (13:00)
--- NOTE | 2018-12-08 13:20 | DIALYSIS ---
3hr 15 mins dialysis complete. pt tolerated well. net uf 1000ml. r chest dialysis catheter dressing changed. site old crusty blood, otherwise benign. sbp range 90-126. midodrine given pre tx. 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
--- NOTE | 2018-12-08 13:23 | CASEMGMT ---
Physician said pre-cert request can be started. JAZLYN faxed all necessary information to [facility]. JAZLYN also left a message for Teresa asking her to please start the pre-cert. Ludmila SANDOVAL
--- NOTE | 2018-12-08 14:19 | PCM.PROGNOTE ---
Patient Problems: Active and Suspected Problems (Last Reviewed 11/30/18 @ 02:27 by Pete Ramirez DO) JOSE (acute kidney injury) (Acute) GI bleed (Acute) Subjective: Pt resting comfortably in bed NAD. RLE has moderate pain, pt has been declining pain meds. No fever or chills. No CP, SOB, tightness, Heaviness. No diarrhea, abdominal pain, N/V. Undergoing dialysis. Pt is tired and often drifting to sleep during interview. present. - Physical Exam General: Alert, Oriented x3, Cooperative HEENT: Atraumatic, PERRLA, EOMI, Normocephalic Neck: Supple, No JVD, Negative Carotid Bruits Lungs: Clear to auscultation, Normal air movement Cardiovascular: Regular rate, No murmurs Abdomen: Bowel Sounds Present, Soft, Non Tender Extremities: Capillary Refill Less than 3 Seconds, Edema - Foot (R) Skin: No rashes, No breakdown Musculoskeletal: No Tenderness to Palpation of Joints or Extremities Neurological: Cranial nerves II-XII grossly intact Psych/Mental Status: Normal Affect, Appropriate Vital Signs Temp Pulse Resp BP Pulse Ox 98.5 F 98 18 140/56 H 93 12/08/18 13:14 12/08/18 13:14 12/08/18 13:14 12/08/18 13:14 12/08/18 09:59 Oxygen Flow Rate (L/min) 6 Oxygen Delivery Method Room Air Weight: 190 lb 4.143 oz Body Mass Index (BMI) 32.2 Finger Stick Blood Glucose 159 Intake and Output for Last 24 Hours 12/06/18 12/07/18 12/08/18 23:59 23:59 23:59 Intake Total 730 / 730 1480 / 1480 720 / 720 Output Total 1100 / 1100 1100 / 1100 1999 / 1999 Balance -370 / -370 380 / 380 -1280 / -1280 Microbiology Past 72 Hours 12/07/18 15:27 Gram Stain - Final Tissue - Leg, Right Wound Culture - Preliminary No growth-Final to follow Laboratory Tests Past 24 Hrs 12/08/18 12/08/18 05:25 05:25 WBC 7.4 RBC 2.92 L Hgb 9.7 L Hct 29.8 L MCV 102.1 H MCH 33.2 H MCHC 32.6 RDW 21.6 H RDW Differential 75.8 H Plt Count 67 L MPV 11.3 Differential Comment SCAN Sodium 135 L Potassium 4.0 Chloride 99 Carbon Dioxide 24.0 Anion Gap 12 BUN 44 H Creatinine 2.61 H Estim Creat Clear Calc 14.50 Est GFR (MDRD) Af Amer 23 L Est GFR (MDRD) Non-Af 19 L BUN/Creatinine Ratio 16.9 Glucose 83 Calcium 7.3 L POC Glucose 12/08/18 12/08/18 12/08/18 12:35 11:30 06:50 POC Glucose 74 79 84 12/07/18 12/07/18 12/07/18 21:56 15:53 11:42 POC Glucose 95 98 113 H Medical Necessity - Tobacco Use Smoking Status: Never smoker Tobacco Use: Non-smoker Assessment/Plan All Active Problems (Last Reviewed 11/30/18 @ 02:27 by Pete Ramirez DO) JOSE (acute kidney injury) (Acute) GI bleed (Acute) GI bleed (Acute) Acute coronary syndrome (Acute) Non-STEMI (non-ST elevated myocardial infarction) (Acute) Hypercholesterolemia (Acute) Congestive heart failure of unknown etiology (Acute) Abnormal EKG (Acute) 1. ESRD - Continue dialysis 2. Acute blood loss anemia secondary to GI bleed - initially 2/2 hemorrhoids, then wound blood loss. s/p 2 units PRBC total. EPO per renal. 3. Elevated troponin, history of CAD with multiple stents- reevaluate as o/p. Continue aspirin and plavix as she recently had a stent. 4. History of systolic congestive heart failure-EF 50% recently. No sign of acute failure. 5. Type 2 diabetes mellitus-sliding scale insulin plus Lantus, adjusted for low BS this AM. 6. 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 No wound vac at this time. Continue cefazolin. Cx with no growth. 8. Thrombocytopenia - trend. Multiple factors contributing, large wound with active bleeding, cirrhosis, ESRD, medications including asa/plavix, azathioprine, cefazolin. If worsens consider hematology consult. Avoid heparin products. 9. Hx autoimmune liver dz/cirrhosis - azathioprine. DVT prophylaxis: SCDs. Discharge planning: Will go to SNF when ready. This patient was seen by Phil Villa PA-C under the supervision of Doctor Saleem.
[2018-12-08 15:26] LABS: Bedside Glucose 154 mg/dL (70-110)
[2018-12-08] MEDS: Cefazolin 1 GM/50 ML BAG IV (15:28)
[2018-12-08] MEDS: Insulin Lispro 100 UNIT/ML INSULN.PEN SC (21:31)
[2018-12-08 23:01] LABS: Bedside Glucose 230 mg/dL (70-110)
[2018-12-09] VITALS (11 sets, daily range): BP systolic 111–142; BP diastolic 53–63; PULSE 100–119; RESP 14–20; TEMP 36.7–37.5; O2SAT 92–95
[2018-12-09] MEDS: oxyCODONE 5 MG Tablet 10 MG PO ×2 (06:13→10:16)
[2018-12-09 06:39] LABS: Anion Gap 10 (5-15); BUN 31 mg/dL (7-18); BUN/Creat Ratio 12.6 RATIO (10-20); Calcium,Total 7.3 mg/dL (8.5-10.1); Chloride 99 mmol/L (98-107); Creatinine, Serum 2.47 mg/dL (0.55-1.02); EST Glomerular Filtration Rate 20 mL/min (>60); Est Glom Filt Rate - Afr Amer 24 mL/min (>60); Estimated Creatinine Clearance 15.33 ml/min; Glucose 139 mg/dL (74-106); Potassium 3.8 mmol/L (3.5-5.1); Sodium Level 135 mmol/L (136-145)
[2018-12-09 06:44] LABS: Absolute Lymphocyte Count 1.37 X10^3/ul (0.83-4.51); Absolute Neutrophil Count 4.2 X10^3/uL (2.0-7.7); Basophil# 0.02 X10^3/uL; Basophil% 0.3 % (0-1); Eosinophil# 0.22 X10^3/uL; Eosinophils% 3.2 % (0-5); Hematocrit 29.9 % (37-47); Hemoglobin 9.2 g/dl (12.0-15.0); Lymphocyte # 1.37 X10^3/ul (4.0); Mean Corp Hgb Conc 30.8 g/gl (32-36); Mean Corpuscular Hgb 32.6 pg (27.0-32.0); Mean Platelet Vol. 11.4 fl (6.2-12.0); Monocyte# 0.97 X10^3/uL; Monocyte% 14.2 % (0-10); Neutrophil # 4.21 X10^3/uL (2.7-7.7); Neutrophil % 61.6 % (47-70); Platelet Count 82 K/mm3 (150-450); RBC Distribution Width CV 21.6 % (11.6-14.6); RBC Distribution Width SD 76.5 fl (35.1-43.9); Red Blood Count 2.82 M/mm3 (4.2-5.4); White Blood Count 6.8 K/mm3 (4.4-11.0)
[2018-12-09 06:51] LABS: Bedside Glucose 140 mg/dL (70-110)
[2018-12-09 06:56] LABS: Differential Indicated SCAN CRITERIA MET; POSITIVE COUNT NO; POSITIVE DIFFERENTIAL NO; POSITIVE MORPHOLOGY YES
[2018-12-09 07:27] LABS: Anisocytosis 2+; Differential Comment SCAN; Hypochromasia 1+; Microcytosis 1+; Polychromasia 1+
--- NOTE | 2018-12-09 09:24 | CASEMGMT ---
JAZLYN called Teresa at [facility] and asked if she started the pre-cert. Plan: [facility] pending insurance approval. Ludmila BOO MSW
--- NOTE | 2018-12-09 09:44 | PN.SURG_ITS ---
Patient Problems: Active and Suspected Problems (Last Reviewed 11/30/18 @ 02:27 by Pete Ramirez DO) JOSE (acute kidney injury) (Acute) GI bleed (Acute) Subjective: Postop #2 Patient is resting comfortably. She tolerated the Silver dressing change reasonably well today. She states she tolerated the dialysis yesterday. - Physical Exam General: Alert, Oriented x3 HEENT: PERRLA, EOMI Oral: Moist Mucosa Neck: Supple Abdomen: Soft, Non-Distended Skin: Ulcer/ Wound - right lateral leg wound is stable. No active bleeding seen. No evidence of infection. Periwound bruising is stable. No progression. Will observe the surrounding bruised areas. Can further evaluate at the wound center for need for additional debridement. Neurological: Cranial nerves II-XII grossly intact Psych/Mental Status: Normal Affect, Appropriate Vital Signs Temp Pulse Resp BP Pulse Ox 99.5 F H 104 H 18 134/59 H 93 12/09/18 03:25 12/09/18 07:00 12/09/18 03:25 12/09/18 03:25 12/09/18 03:41 Oxygen Flow Rate (L/min) 6 Oxygen Delivery Method Room Air Weight: 192 lb 0.362 oz Body Mass Index (BMI) 32.2 Finger Stick Blood Glucose 159 Intake and Output for Last 24 Hours 12/07/18 12/08/18 12/09/18 23:59 23:59 23:59 Intake Total 1480 / 1480 840 / 840 120 / 120 Output Total 1100 / 1100 2000 / 2000 Balance 380 / 380 -1160 / -1160 120 / 120 Microbiology Past 72 Hours 12/07/18 15:27 Gram Stain - Final Tissue - Leg, Right Wound Culture - Preliminary No growth-Final to follow Anaerobic Culture - Preliminary Checking for anaerobes, further studies to follow. Pathology - pending. Laboratory Tests Past 24 Hrs 12/09/18 12/09/18 05:35 05:35 WBC 6.8 RBC 2.82 L Hgb 9.2 L Hct 29.9 L MCV 106.0 H MCH 32.6 H MCHC 30.8 L RDW 21.6 H RDW Differential 76.5 H Plt Count 82 L MPV 11.4 Immature Gran % (Auto) 0.700 Neut % (Auto) 61.6 Lymph % (Auto) 20.0 [place] % (Auto) 14.2 H Eos % (Auto) 3.2 Baso % (Auto) 0.3 Absolute Neuts (auto) 4.2 Absolute Lymphs (auto) 1.37 Total Counted Not Reportable Differential Comment SCAN Polychromasia 1+ Hypochromasia 1+ Anisocytosis 2+ Microcytosis 1+ Sodium 135 L Potassium 3.8 Chloride 99 Carbon Dioxide 26.0 Anion Gap 10 BUN 31 H Creatinine 2.47 H Estim Creat Clear Calc 15.33 Est GFR (MDRD) Af Amer 24 L Est GFR (MDRD) Non-Af 20 L BUN/Creatinine Ratio 12.6 Glucose 139 H Calcium 7.3 L POC Glucose 12/09/18 12/08/18 12/08/18 06:42 21:30 15:15 POC Glucose 140 H 230 H 154 H 12/08/18 12/08/18 12:35 11:30 POC Glucose 74 79 Medical Necessity - Tobacco Use Smoking Status: Never smoker Tobacco Use: Non-smoker Assessment/Plan All Active Problems (Last Reviewed 11/30/18 @ 02:27 by Pete Ramirez DO) JOSE (acute kidney injury) (Acute) GI bleed (Acute) GI bleed (Acute) Acute coronary syndrome (Acute) Non-STEMI (non-ST elevated myocardial infarction) (Acute) Hypercholesterolemia (Acute) Congestive heart failure of unknown etiology (Acute) Abnormal EKG (Acute) 1. Necrotic eschar cluster with surrounding contusion right lateral leg, possible calciphylaxis. 2. ESRD on dialysis. 3. Diabetes mellitus. 4. CAD. 5. Recent [place] with placement of a stent. Right lateral leg wound is stable. No active bleeding seen. No evidence of infection. Periwound bruising is stable. No progression. Will observe the surrounding bruised areas. Can further evaluate at the wound center for need for additional debridement. Operative culture is negative thus far. Continue Ancef. Pathology is pending. Wound redressed with Aquacel Silver to be done daily. This is followed by the DEWEY wrap for compression. Patient may ambulate with assist using her walker. Try to minimize standing. When she gets to her destination, she needs to sit and elevate her right leg. Pain is well controlled with the Oxycodone. She gets dialyzed Wednesday, , and Wednesday. She states she tolerated her dialysis yesterday. Plans are being made for ECF placement. After discharge, can followup at the Wound Center. If there is a plateau in the healing process and she is stable medically, can then proceed with delayed closure with skin grafting. Her HgbA1c is 5.7. The HgbA1c needs to be less than 8 in the future if a skin graft is being considered for closure. Anticipate increased metabolic demands from her planned surgical wound. Prealbumin is 10.2. Encourage nutritional supplementation with protein to help the healing process.
[2018-12-09] MEDS: Pantoprazole Sodium 20 MG Tablet PO (10:14)
[2018-12-09] MEDS: Aspirin 81 MG TAB.CHEW PO (10:14)
[2018-12-09] MEDS: Ranolazine 500 MG Tablet PO ×2 (10:15→22:09)
[2018-12-09] MEDS: Folic Acid/Vitamin B Comp W-C 1 Capsule 1 CAP PO (10:15)
[2018-12-09] MEDS: Clopidogrel Bisulfate 75 MG Tablet PO (10:15)
[2018-12-09] MEDS: Nepro Liquid 120 ML LIQUID PO ×4 (10:19→22:12)
--- NOTE | 2018-12-09 10:54 | CASEMGMT ---
This RN CM received call from Ryan Villavicencio to see about pt discharge. Advised Ryan Villavicencio that we are waiting for precert for pt to be discharge to [facility], voices understanding. This RN CM advised her that if they don't hear back from us today that pt will be here thru weekend, voices understanding. SStalex BELTRAN CM
[2018-12-09] MEDS: azaTHIOprine 50 MG Tablet 100 MG PO (11:52)
[2018-12-09] MEDS: Insulin Lispro 100 UNIT/ML INSULN.PEN SC (11:52)
--- NOTE | 2018-12-09 13:46 | PN_ITS ---
Patient Problems: Active and Suspected Problems (Last Reviewed 11/30/18 @ 02:27 by Pete Ramirez DO) JOSE (acute kidney injury) (Acute) GI bleed (Acute) Subjective: Drowsy, feels this is 2/2 pain medication. It is however helping well with her RLE pain. No fever or chills. No N/V/D. No SOB/Cough. Pt wants to get up and move more, ok per Dr. Martinez - see progress note. - Physical Exam General: Alert, Oriented x3, Cooperative HEENT: Atraumatic, PERRLA, EOMI, Normocephalic Neck: Supple, No JVD, Negative Carotid Bruits Lungs: Clear to auscultation, Normal air movement Cardiovascular: Regular rate, No murmurs Abdomen: Bowel Sounds Present, Soft, Non Tender Extremities: No edema, Capillary Refill Less than 3 Seconds Skin: No rashes, No breakdown, - - RLE wound dressed apporpriately. Musculoskeletal: No Tenderness to Palpation of Joints or Extremities Neurological: Cranial nerves II-XII grossly intact Psych/Mental Status: Normal Affect, Appropriate, Alert and oriented to time, place, person, mood and affect Vital Signs Temp Pulse Resp BP Pulse Ox 98.6 F 100 16 111/53 L 92 12/09/18 09:57 12/09/18 11:00 12/09/18 09:57 12/09/18 09:57 12/09/18 09:57 Oxygen Flow Rate (L/min) 6 Oxygen Delivery Method Room Air Weight: 192 lb 0.362 oz Body Mass Index (BMI) 32.2 Finger Stick Blood Glucose 159 Intake and Output for Last 24 Hours 12/07/18 12/08/18 12/09/18 23:59 23:59 23:59 Intake Total 1480 / 1480 840 / 840 360 / 360 Output Total 1100 / 1100 1999 / 1999 Balance 380 / 380 -1160 / -1160 360 / 360 Microbiology Past 72 Hours 12/07/18 15:27 Gram Stain - Final Tissue - Leg, Right Wound Culture - Preliminary No growth-Final to follow Anaerobic Culture - Preliminary Checking for anaerobes, further studies to follow. Laboratory Tests Past 24 Hrs 12/09/18 12/09/18 05:35 05:35 WBC 6.8 RBC 2.82 L Hgb 9.2 L Hct 29.9 L MCV 106.0 H MCH 32.6 H MCHC 30.8 L RDW 21.6 H RDW Differential 76.5 H Plt Count 82 L MPV 11.4 Immature Gran % (Auto) 0.700 Neut % (Auto) 61.6 Lymph % (Auto) 20.0 [place] % (Auto) 14.2 H Eos % (Auto) 3.2 Baso % (Auto) 0.3 Absolute Neuts (auto) 4.2 Absolute Lymphs (auto) 1.37 Total Counted Not Reportable Differential Comment SCAN Polychromasia 1+ Hypochromasia 1+ Anisocytosis 2+ Microcytosis 1+ Sodium 135 L Potassium 3.8 Chloride 99 Carbon Dioxide 26.0 Anion Gap 10 BUN 31 H Creatinine 2.47 H Estim Creat Clear Calc 15.33 Est GFR (MDRD) Af Amer 24 L Est GFR (MDRD) Non-Af 20 L BUN/Creatinine Ratio 12.6 Glucose 139 H Calcium 7.3 L POC Glucose 12/09/18 12/08/18 12/08/18 06:42 21:30 15:15 POC Glucose 140 H 230 H 154 H Medical Necessity - Tobacco Use Smoking Status: Never smoker Tobacco Use: Non-smoker Assessment/Plan All Active Problems (Last Reviewed 11/30/18 @ 02:27 by Pete Ramirez DO) JOSE (acute kidney injury) (Acute) GI bleed (Acute) GI bleed (Acute) Acute coronary syndrome (Acute) Non-STEMI (non-ST elevated myocardial infarction) (Acute) Hypercholesterolemia (Acute) Congestive heart failure of unknown etiology (Acute) Abnormal EKG (Acute) 1. ESRD - Continue dialysis per Dr. Pearson. 2. Acute blood loss anemia secondary to GI bleed - initially 2/2 hemorrhoids, then wound blood loss. s/p 2 units PRBC total. EPO per renal. 3. Elevated troponin, history of CAD with multiple stents- No CP. Cardiology to reevaluate as o/p. Continue aspirin and plavix as she recently had a stent. 4. History of systolic congestive heart failure-EF 50% recently. No sign of acute failure. 5. Type 2 diabetes mellitus with obesity - stable 6. 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 No wound vac at this time - poor skin at wound margins. Continue cefazolin. Cx with no growth. -Ok to ambulate with walker, minimize standing. -continue wound care -continue supplements 8. Thrombocytopenia - Starting to recover more. Multiple factors contributing, large wound with active bleeding, cirrhosis, ESRD, medications including asa /plavix, azathioprine, cefazolin. If worsens consider hematology consult. Avoid heparin products. 9. Hx autoimmune liver dz/cirrhosis - azathioprine. DVT prophylaxis: SCDs. Discharge planning: Will go to SNF at or. This patient was seen by Phil Villa PA-C under the supervision of Doctor Saleem.
--- NOTE | 2018-12-09 14:24 | PN.RENAL_ITS ---
Patient Problems: Active and Suspected Problems (Last Reviewed 11/30/18 @ 02:27 by Pete Ramirez DO) JOSE (acute kidney injury) (Acute) GI bleed (Acute) Subjective: drowsy from pain medication, arrousable. Edema slowly improving. Await ECF placement. - Physical Exam General: - - drowsy Oral: Moist Mucosa Lungs: Clear to auscultation Abdomen: Bowel Sounds Present, Soft, Non Tender, Non-Distended Extremities: Edema - anasarca Skin: - - rt leg wound, diffuse ecchymosis Musculoskeletal: - - debilitated Neurological: - - no tremor Psych/Mental Status: - - drowsy Vital Signs Temp Pulse Resp BP Pulse Ox 98.6 F 100 16 111/53 L 92 12/09/18 09:57 12/09/18 11:00 12/09/18 09:57 12/09/18 09:57 12/09/18 09:57 Oxygen Flow Rate (L/min) 6 Oxygen Delivery Method Room Air Weight: 87.1 kg Body Mass Index (BMI) 32.2 Finger Stick Blood Glucose 159 Intake and Output for Last 24 Hours 12/07/18 12/08/18 12/09/18 23:59 23:59 23:59 Intake Total 1480 / 1480 840 / 840 360 / 360 Output Total 1100 / 1100 1999 / 1999 Balance 380 / 380 -1160 / -1160 360 / 360 Microbiology Past 72 Hours 12/07/18 15:27 Gram Stain - Final Tissue - Leg, Right Wound Culture - Preliminary No growth-Final to follow Anaerobic Culture - Preliminary Checking for anaerobes, further studies to follow. Laboratory Tests Past 24 Hrs 12/09/18 12/09/18 05:35 05:35 WBC 6.8 RBC 2.82 L Hgb 9.2 L Hct 29.9 L MCV 106.0 H MCH 32.6 H MCHC 30.8 L RDW 21.6 H RDW Differential 76.5 H Plt Count 82 L MPV 11.4 Immature Gran % (Auto) 0.700 Neut % (Auto) 61.6 Lymph % (Auto) 20.0 [place] % (Auto) 14.2 H Eos % (Auto) 3.2 Baso % (Auto) 0.3 Absolute Neuts (auto) 4.2 Absolute Lymphs (auto) 1.37 Total Counted Not Reportable Differential Comment SCAN Polychromasia 1+ Hypochromasia 1+ Anisocytosis 2+ Microcytosis 1+ Sodium 135 L Potassium 3.8 Chloride 99 Carbon Dioxide 26.0 Anion Gap 10 BUN 31 H Creatinine 2.47 H Estim Creat Clear Calc 15.33 Est GFR (MDRD) Af Amer 24 L Est GFR (MDRD) Non-Af 20 L BUN/Creatinine Ratio 12.6 Glucose 139 H Calcium 7.3 L POC Glucose 12/09/18 12/08/18 12/08/18 06:42 21:30 15:15 POC Glucose 140 H 230 H 154 H Medical Necessity - Tobacco Use Smoking Status: Never smoker Tobacco Use: Non-smoker Assessment/Plan All Active Problems (Last Reviewed 11/30/18 @ 02:27 by Pete Ramirez DO) JOSE (acute kidney injury) (Acute) GI bleed (Acute) GI bleed (Acute) Acute coronary syndrome (Acute) Non-STEMI (non-ST elevated myocardial infarction) (Acute) Hypercholesterolemia (Acute) Congestive heart failure of unknown etiology (Acute) Abnormal EKG (Acute) 1. 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 Pt oligoanuric. HD TTS. Pre-medicate with midodrine 10mg on dialysis days. 2. ACS s/p stent LAD, on plavix, cardiology following 3. DM2 primary service mgmt 4. HTN stable, hold for hypotension on dialysis. 5. Anemia, Acute GI bleed on plavix, ASA. Continue ESTEPHANIE therapy on dialysis. 6. Cellulitis RLE continue with wound care. s/p debridement and skin biopsy to evaluate for calciphylaxis 7. Thrombocytopenia possibly due to consumption, plts improving 8. Anasarca fluid removal as tolerated on dialysis. DW pt, pt spouse at bedside
[2018-12-09 14:41] LABS: Bedside Glucose 152 mg/dL (70-110)
--- NOTE | 2018-12-09 15:10 | CASEMGMT ---
Spoke with Teresa and she did start the pre-cert. She has not heard from insurance. JAZLYN spoke with patient's as patient was sleeping. SW let them know we are waiting on insurance. JAZLYN explained if we don't hear today it won't be until Wednesday at the earliest. Plan: [facility] pending pre-cert. Ludmila BOO MSW
[2018-12-09] MEDS: Cefazolin 1 GM/50 ML BAG IV (16:28)
[2018-12-09 16:56] LABS: Bedside Glucose 134 mg/dL (70-110)
[2018-12-09 22:41] LABS: Bedside Glucose 140 mg/dL (70-110)
[2018-12-10] VITALS (14 sets, daily range): BP systolic 123–153; BP diastolic 52–68; PULSE 100–111; RESP 16–18; TEMP 36.5–37.2; O2SAT 92–99
[2018-12-10 07:10] LABS: Bedside Glucose 151 mg/dL (70-110)
[2018-12-10] MEDS: oxyCODONE 5 MG Tablet PO ×3 (07:49→21:17)
[2018-12-10] MEDS: Midodrine HCl 5 MG Tablet 10 MG PO (08:52)
[2018-12-10] MEDS: Acetaminophen 325 MG Tablet 650 MG PO (08:54)
[2018-12-10] MEDS: Albumin Human 25% (100 mL) 25 GM/100 ML BAG IV (09:00)
--- NOTE | 2018-12-10 09:57 | PCM.PN.REN ---
Patient Problems: Active and Suspected Problems (Last Reviewed 11/30/18 @ 02:27 by Pete Ramirez DO) JOSE (acute kidney injury) (Acute) GI bleed (Acute) Subjective: Seen on dialysis. Complains of right leg pain. Received oxycodone for pain relief. Patient premedicated with midodrine and IV albumin prior to initiating dialysis. Attempt 2 L fluid removal today. Blood pressure stable so far. - Physical Exam General: Alert, Oriented x3, Cooperative, - - Mild discomfort Lungs: Clear to auscultation Cardiovascular: Regular rate, Murmur Abdomen: Bowel Sounds Present, Soft, Non Tender, Non-Distended Extremities: Edema - Anasarca slowly improving Skin: Ulcer/ Wound - Right leg, - - Diffuse ecchymosis Musculoskeletal: Muscle Wasting, - - Generalized muscle weakness Neurological: Unsteady Gait Psych/Mental Status: Normal Affect, Appropriate, Alert and oriented to time, place, person, mood and affect Vital Signs Temp Pulse Resp BP Pulse Ox 98.9 F 111 H 18 123/68 H 92 12/10/18 04:00 12/10/18 06:29 12/10/18 04:00 12/10/18 04:00 12/10/18 09:08 Oxygen Flow Rate (L/min) 6 Oxygen Delivery Method Room Air Weight: 88 kg Body Mass Index (BMI) 32.2 Finger Stick Blood Glucose 159 Intake and Output for Last 24 Hours 12/08/18 12/09/18 12/10/18 23:59 23:59 23:59 Intake Total 840 / 840 360 / 360 Output Total 1999 Balance -1160 / -1160 360 / 360 Microbiology Past 72 Hours 12/07/18 15:27 Gram Stain - Final Tissue - Leg, Right Wound Culture - Preliminary Gram positive organism Anaerobic Culture - Preliminary Checking for anaerobes, further studies to follow. Laboratory Tests Past 24 Hrs 12/10/18 09:35 Sodium Pending Potassium Pending Chloride Pending Carbon Dioxide Pending Anion Gap Pending BUN Pending Creatinine Pending Est GFR (MDRD) Af Amer Pending Est GFR (MDRD) Non-Af Pending BUN/Creatinine Ratio Pending Glucose Pending Calcium Pending Magnesium Pending POC Glucose 12/10/18 12/09/18 12/09/18 06:44 22:07 16:27 POC Glucose 151 H 140 H 134 H 12/09/18 11:50 POC Glucose 152 H Medical Necessity - Tobacco Use Smoking Status: Never smoker Tobacco Use: Non-smoker Assessment/Plan All Active Problems (Last Reviewed 11/30/18 @ 02:27 by Pete Ramirez DO) JOSE (acute kidney injury) (Acute) GI bleed (Acute) GI bleed (Acute) Acute coronary syndrome (Acute) Non-STEMI (non-ST elevated myocardial infarction) (Acute) Hypercholesterolemia (Acute) Congestive heart failure of unknown etiology (Acute) Abnormal EKG (Acute) 1. 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 HD TTS. Pre-medicate with midodrine 10mg and IV albumin today on dialysis. Attempt to liter fluid removal today for anasarca. 2. ACS s/p stent LAD, on plavix, cardiology following 3. DM2 primary service mgmt 4. HTN stable, hold for hypotension on dialysis. 5. Anemia, Acute GI bleed on plavix, ASA. Continue ESTEPHANIE therapy on dialysis. 6. Cellulitis RLE continue with wound care. s/p debridement and skin biopsy to evaluate for calciphylaxis 7. Thrombocytopenia possibly due to consumption, plts improving 8. Anasarca fluid removal as tolerated on dialysis. DW pt, pt spouse at bedside
[2018-12-10 10:08] LABS: Anion Gap 8 (5-15); BUN 23 mg/dL (7-18); BUN/Creat Ratio 11.8 RATIO (10-20); Calcium,Total 7.1 mg/dL (8.5-10.1); Chloride 98 mmol/L (98-107); Creatinine, Serum 1.95 mg/dL (0.55-1.02); EST Glomerular Filtration Rate 27 mL/min (>60); Est Glom Filt Rate - Afr Amer 32 mL/min (>60); Estimated Creatinine Clearance 19.41 ml/min; Glucose 113 mg/dL (74-106); Magnesium 1.8 mg/dL (1.6-2.6); Potassium 3.5 mmol/L (3.5-5.1); Sodium Level 134 mmol/L (136-145)
[2018-12-10 11:30] LABS: Bedside Glucose 98 mg/dL (70-110)
--- NOTE | 2018-12-10 11:50 | DIALYSIS ---
HD X 3.5 HRS ON A 3K BATH. UF-2000ML GIVEN ALBUMIN 25GMS AND MIDODRINE AND EPOGEN DURING TREATMENT. VITALS STABLE THROUGH OUT. AT THE BEDSIDE. RIJ CATH WITH GOOD FLOWS. REPORT TO [place] BELTRAN
--- NOTE | 2018-12-10 12:20 | PCM.PROGNOTE ---
<Phil Villa - Last Filed: 12/10/18 12:20> Patient Problems: Active and Suspected Problems (Last Reviewed 11/30/18 @ 02:27 by Pete Ramirez DO) JOSE (acute kidney injury) (Acute) GI bleed (Acute) Subjective: Pt seen and examined, undergoing dialysis. Resting comfortably supine NAD. She is lethargic again after receiving pain medications, however she does continue to have significant pain in the RLE wound area. Currently it is controlled. No fevers or chills. No LH/Dizzyiness. No SOB/CP/tightness/heaviness. Still some LE edema with clear fluid filled blister LLE. - Physical Exam General: Alert, Oriented x3, Cooperative HEENT: Atraumatic, PERRLA, EOMI, Normocephalic Neck: Supple, No JVD, Negative Carotid Bruits Lungs: Clear to auscultation, Normal air movement Cardiovascular: Regular rate, No murmurs Abdomen: Bowel Sounds Present, Soft, Non Tender Extremities: Capillary Refill Less than 3 Seconds, Edema - BL LE edema 2-3+ L>R. Skin: No rashes, No breakdown, - - wound dressed appropriately. Serous blister left ankle, negative nikolsky sign. Musculoskeletal: No Tenderness to Palpation of Joints or Extremities Neurological: Cranial nerves II-XII grossly intact Psych/Mental Status: Normal Affect, Appropriate, Alert and oriented to time, place, person, mood and affect Vital Signs Temp Pulse Resp BP Pulse Ox 98.5 F 106 H 16 139/62 H 92 12/10/18 11:49 12/10/18 11:49 12/10/18 11:49 12/10/18 11:49 12/10/18 11:49 Oxygen Flow Rate (L/min) 3 Oxygen Delivery Method Nasal Cannula Weight: 194 lb 0.108 oz Body Mass Index (BMI) 32.2 Finger Stick Blood Glucose 159 Intake and Output for Last 24 Hours 12/08/18 12/09/18 12/10/18 23:59 23:59 23:59 Intake Total 840 / 840 360 / 360 Output Total 1999 Balance -1160 / -1160 360 / 360 Microbiology Past 72 Hours 12/07/18 15:27 Gram Stain - Final Tissue - Leg, Right Wound Culture - Preliminary Gram positive organism Anaerobic Culture - Final No anaerobic bacteria isolated. Laboratory Tests Past 24 Hrs 12/10/18 09:35 Sodium 134 L Potassium 3.5 Chloride 98 Carbon Dioxide 28.0 Anion Gap 8 BUN 23 H Creatinine 1.95 H Estim Creat Clear Calc 19.41 Est GFR (MDRD) Af Amer 32 L Est GFR (MDRD) Non-Af 27 L BUN/Creatinine Ratio 11.8 Glucose 113 H Calcium 7.1 L Magnesium 1.8 POC Glucose 12/10/18 12/10/18 12/09/18 10:44 06:44 22:07 POC Glucose 98 151 H 140 H 12/09/18 12/09/18 16:27 11:50 POC Glucose 134 H 152 H Medical Necessity - Tobacco Use Smoking Status: Never smoker Tobacco Use: Non-smoker Assessment/Plan All Active Problems (Last Reviewed 11/30/18 @ 02:27 by Pete Ramirez DO) JOSE (acute kidney injury) (Acute) GI bleed (Acute) GI bleed (Acute) Acute coronary syndrome (Acute) Non-STEMI (non-ST elevated myocardial infarction) (Acute) Hypercholesterolemia (Acute) Congestive heart failure of unknown etiology (Acute) Abnormal EKG (Acute) 1. ESRD - Continue dialysis per Dr. Pearson. 2. Acute blood loss anemia secondary to GI bleed - Stable, resolved. initially 2/2 hemorrhoids, then wound blood loss. s/p 2 units PRBC total. EPO per renal. 3. Elevated troponin, history of CAD with multiple stents- No CP. Cardiology to reevaluate as o/p. Continue aspirin and plavix as she recently had a stent. 4. History of systolic congestive heart failure-EF 50% recently. No sign of acute failure. 5. Type 2 diabetes mellitus with obesity - stable 6. 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 No wound vac at this time - poor skin at wound margins. Continue cefazolin. Cx rare gram + . -Ok to ambulate with walker, minimize standing. -continue wound care -continue supplements -Change to PO keflex at dc. 8. Thrombocytopenia - Recovering. Multiple factors contributing, large wound with active bleeding, cirrhosis, ESRD, medications including asa/plavix, azathioprine, cefazolin. If worsens consider hematology consult. Avoid heparin products. 9. Hx autoimmune liver dz/cirrhosis - azathioprine. DVT prophylaxis: SCDs. Discharge planning: [place] This patient was seen by Phil Villa PA-C under the supervision of Doctor Clint. <ClintAnniea Lois - Last Filed: 12/10/18 15:43> - Physical Exam Vital Signs Temp Pulse Resp BP Pulse Ox 97.7 F L 105 H 16 126/52 H 99 12/10/18 12:51 12/10/18 14:51 12/10/18 12:51 12/10/18 12:51 12/10/18 14:00 Oxygen Flow Rate (L/min) 3 Oxygen Delivery Method Room Air Weight: 194 lb 0.108 oz Body Mass Index (BMI) 32.2 Finger Stick Blood Glucose 159 Intake and Output for Last 24 Hours 12/08/18 12/09/18 12/10/18 23:59 23:59 23:59 Intake Total 840 / 840 360 / 360 240 / 240 Output Total 1999 Balance -1160 / -1160 360 / 360 -1760 / -1760 Microbiology Past 72 Hours 12/07/18 15:27 Gram Stain - Final Tissue - Leg, Right Wound Culture - Preliminary Gram positive organism Anaerobic Culture - Final No anaerobic bacteria isolated. Laboratory Tests Past 24 Hrs 12/10/18 09:35 Sodium 134 L Potassium 3.5 Chloride 98 Carbon Dioxide 28.0 Anion Gap 8 BUN 23 H Creatinine 1.95 H Estim Creat Clear Calc 19.41 Est GFR (MDRD) Af Amer 32 L Est GFR (MDRD) Non-Af 27 L BUN/Creatinine Ratio 11.8 Glucose 113 H Calcium 7.1 L Magnesium 1.8 POC Glucose 12/10/18 12/10/18 12/09/18 10:44 06:44 22:07 POC Glucose 98 151 H 140 H 12/09/18 16:27 POC Glucose 134 H Assessment/Plan Patient seen by Phil Villa PA-C under my supervision. Patient seen and examined. She complains of a blister on her left ankle which she thinks is due to the SCDs wrapped on her LEs. She has no other complaints. Review of systems is otherwise negative. Labs and vitals reviewed. o/e: Vital Signs Height 5 ft 2 in Weight: 194 lb 0.108 oz Weight in Pounds 194.0 lbs Pulse Ox 99 Temperature 97.7 F Pulse Rate 105 Respiratory Rate 16 Blood Pressure [BP] 151/75 Blood Pressure 126/52 Blood Pressure Position [BP] Semi-Fowlers Blood Pressure Position Supine General: Alert, Oriented x3, Cooperative HEENT: Atraumatic, PERRLA, EOMI, Normocephalic Neck: Supple, No JVD, Negative Carotid Bruits Lungs: Clear to auscultation, Normal air movement Cardiovascular: Regular rate, No murmurs Abdomen: Bowel Sounds Present, Soft, Non Tender Extremities: Capillary Refill Less than 3 Seconds, Edema - BL LE edema 2-3+ L>R. chest dialysis catheter in place Skin: No rashes, No breakdown, left ankle blister which is firm,not flaccid Musculoskeletal: No Tenderness to Palpation of Joints or Extremities Neurological: Cranial nerves II-XII grossly intact Psych/Mental Status: Normal Affect, Appropriate, Alert and oriented to time, place, person, mood and affect Plan is to continue dialysis as per nephrology. Continue IV cefazolin for right lower extremity cellulitis. Monitor left lower extremity blister for resolution. she is awaiting placement. Rest of management as per Phil Villa PA-C's note which I have reviewed and agree with. Code Visit Inpatient E&M: 32697 Subs Hosp L3
[2018-12-10] MEDS: Nepro Liquid 120 ML LIQUID PO ×3 (12:33→21:17)
[2018-12-10] MEDS: Aspirin 81 MG TAB.CHEW PO (12:34)
[2018-12-10] MEDS: azaTHIOprine 50 MG Tablet 100 MG PO (12:35)
[2018-12-10] MEDS: Folic Acid/Vitamin B Comp W-C 1 Capsule 1 CAP PO (12:38)
[2018-12-10] MEDS: Clopidogrel Bisulfate 75 MG Tablet PO (12:38)
[2018-12-10] MEDS: Ranolazine 500 MG Tablet PO ×2 (12:38→21:17)
[2018-12-10] MEDS: Pantoprazole Sodium 20 MG Tablet PO (12:38)
[2018-12-10] MEDS: Magnesium Oxide 400 MG Tablet PO ×2 (14:22→18:07)
[2018-12-10] MEDS: Cefazolin 1 GM/50 ML BAG IV (15:15)
[2018-12-10 16:01] LABS: Bedside Glucose 171 mg/dL (70-110)
[2018-12-10] MEDS: Insulin Lispro 100 UNIT/ML INSULN.PEN SC (21:22)
[2018-12-10 23:45] LABS: Bedside Glucose 202 mg/dL (70-110)
[2018-12-11] VITALS (13 sets, daily range): BP systolic 136–161; BP diastolic 48–80; PULSE 87–107; RESP 16; TEMP 36.3–37.3; O2SAT 94–100
[2018-12-11 06:55] LABS: Bedside Glucose 150 mg/dL (70-110)
[2018-12-11 07:47] LABS: Hematocrit 27.9 % (37-47); Hemoglobin 8.8 g/dl (12.0-15.0); Mean Corp Hgb Conc 31.5 g/gl (32-36); Mean Corpuscular Hgb 33.1 pg (27.0-32.0); Mean Corpuscular Volume 104.9 fL (81-99); Platelet Count 104 K/mm3 (150-450); RBC Distribution Width CV 22.1 % (11.6-14.6); RBC Distribution Width SD 82.2 fl (35.1-43.9); Red Blood Count 2.66 M/mm3 (4.2-5.4); White Blood Count 7.2 K/mm3 (4.4-11.0)
[2018-12-11 07:48] LABS: Scan Indicated on CBC? Y/N YES- FLAGS NOTED
[2018-12-11 07:55] LABS: Albumin, Serum 2.2 g/dL (3.2-5.0); BUN 26 mg/dL (7-18); BUN/Creat Ratio 10.4 RATIO (10-20); Calcium,Total 7.5 mg/dL (8.5-10.1); Chloride 98 mmol/L (98-107); EST Glomerular Filtration Rate 20 mL/min (>60); Est Glom Filt Rate - Afr Amer 24 mL/min (>60); Estimated Creatinine Clearance 15.14 ml/min; Glucose 147 mg/dL (74-106); Phosphorus 2.9 mg/dL (2.5-4.9); Potassium 3.7 mmol/L (3.5-5.1); Sodium Level 137 mmol/L (136-145)
[2018-12-11] MEDS: Magnesium Oxide 400 MG Tablet PO ×2 (07:59→15:17)
[2018-12-11] MEDS: Aspirin 81 MG TAB.CHEW PO (07:59)
[2018-12-11 08:13] LABS: Differential Comment SCANNED
[2018-12-11] MEDS: azaTHIOprine 50 MG Tablet 100 MG PO (10:07)
[2018-12-11] MEDS: Nepro Liquid 120 ML LIQUID PO ×3 (10:07→16:06)
[2018-12-11] MEDS: Pantoprazole Sodium 20 MG Tablet PO (10:08)
[2018-12-11] MEDS: Clopidogrel Bisulfate 75 MG Tablet PO (10:08)
[2018-12-11] MEDS: Ranolazine 500 MG Tablet PO ×2 (10:08→21:30)
[2018-12-11] MEDS: Folic Acid/Vitamin B Comp W-C 1 Capsule 1 CAP PO (10:14)
[2018-12-11] MEDS: Insulin Lispro 100 UNIT/ML INSULN.PEN SC ×3 (11:02→21:45)
[2018-12-11 11:16] LABS: Bedside Glucose 178 mg/dL (70-110)
[2018-12-11] MEDS: Clindamycin HCl 150 MG Capsule 300 MG PO ×2 (12:10→17:02)
[2018-12-11] MEDS: traMADol 50 MG Tablet PO ×2 (12:51→21:33)
--- NOTE | 2018-12-11 12:57 | PCM.PROGNOTE ---
<Phil Villa - Last Filed: 12/11/18 12:57> Patient Problems: Active and Suspected Problems (Last Reviewed 11/30/18 @ 02:27 by Pete Ramirez DO) JOSE (acute kidney injury) (Acute) GI bleed (Acute) Subjective: Pt with no pain currently, however without pain medication she has severe pain. Lethargic with oxy. Pt agreeable to try a different pain regimen - will try tramadol. No fever or chills. No CP or SOB. - Physical Exam General: Alert, Oriented x3, Cooperative HEENT: Atraumatic, PERRLA, EOMI, Normocephalic Neck: Supple, No JVD, Negative Carotid Bruits Lungs: Clear to auscultation, Normal air movement Cardiovascular: Regular rate, No murmurs Abdomen: Bowel Sounds Present, Soft, Non Tender Extremities: No edema, Capillary Refill Less than 3 Seconds Skin: No rashes, No breakdown Musculoskeletal: No Tenderness to Palpation of Joints or Extremities Neurological: Cranial nerves II-XII grossly intact Psych/Mental Status: Normal Affect, Appropriate, Alert and oriented to time, place, person, mood and affect Vital Signs Temp Pulse Resp BP Pulse Ox 98.1 F 98 16 136/48 H 99 12/11/18 09:30 12/11/18 11:00 12/11/18 09:30 12/11/18 09:30 12/11/18 09:30 Oxygen Flow Rate (L/min) 2 Oxygen Delivery Method Nasal Cannula Weight: 192 lb 10.944 oz Body Mass Index (BMI) 32.2 Finger Stick Blood Glucose 159 Intake and Output for Last 24 Hours 12/09/18 12/10/18 12/12/18 23:59 23:59 00:59 Intake Total 360 / 360 630 / 630 290 / 290 Output Total 2029 0 / 0 Balance 360 / 360 -1400 / -1400 290 / 290 Microbiology Past 72 Hours 12/07/18 15:27 Gram Stain - Final Tissue - Leg, Right Wound Culture - Final Staphylococcus epidermidis Anaerobic Culture - Final No anaerobic bacteria isolated. Laboratory Tests Past 24 Hrs 12/11/18 12/11/18 06:59 06:59 WBC 7.2 RBC 2.66 L Hgb 8.8 L Hct 27.9 L MCV 104.9 H MCH 33.1 H MCHC 31.5 L RDW 22.1 H RDW Differential 82.2 H Plt Count 104 L MPV 12.0 Differential Comment SCANNED Sodium 137 Potassium 3.7 Chloride 98 Carbon Dioxide 29.0 BUN 26 H Creatinine 2.50 H Estim Creat Clear Calc 15.14 Est GFR (MDRD) Af Amer 24 L Est GFR (MDRD) Non-Af 20 L BUN/Creatinine Ratio 10.4 Glucose 147 H Calcium 7.5 L Phosphorus 2.9 Albumin 2.2 L POC Glucose 12/11/18 12/11/18 12/10/18 10:59 06:48 21:21 POC Glucose 178 H 150 H 202 H 12/10/18 15:56 POC Glucose 171 H Medical Necessity - Tobacco Use Smoking Status: Never smoker Tobacco Use: Non-smoker Assessment/Plan All Active Problems (Last Reviewed 11/30/18 @ 02:27 by Pete Ramirez DO) JOSE (acute kidney injury) (Acute) GI bleed (Acute) GI bleed (Acute) Acute coronary syndrome (Acute) Non-STEMI (non-ST elevated myocardial infarction) (Acute) Hypercholesterolemia (Acute) Congestive heart failure of unknown etiology (Acute) Abnormal EKG (Acute) 1. ESRD - Continue dialysis per Dr. Pearson. 2. Acute blood loss anemia secondary to GI bleed - Stable, resolved. initially 2/2 hemorrhoids, then wound blood loss. s/p 2 units PRBC total. EPO per renal. 3. Elevated troponin, history of CAD with multiple stents- No CP. Cardiology to reevaluate as o/p. Continue aspirin and plavix as she recently had a stent. 4. History of systolic congestive heart failure-EF 50% recently. No sign of acute failure. 5. Type 2 diabetes mellitus with obesity - stable 6. 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 changed to clinda. continue wound care. f/u with [facility]Wound [facility]. Pain medication changed to tramadol 2/2 lethargy with oxy. 8. Thrombocytopenia - Recovering. Multiple factors contributing, large wound with active bleeding, cirrhosis, ESRD, medications including asa/plavix, azathioprine, cefazolin. If worsens consider hematology consult. Avoid heparin products. 9. Hx autoimmune liver dz/cirrhosis - azathioprine. DVT prophylaxis: SCDs. Discharge planning: [place] This patient was seen by Phil Villa PA-C under the supervision of Doctor Clint. <ClintMoon - Last Filed: 12/11/18 15:38> - Physical Exam Vital Signs Temp Pulse Resp BP Pulse Ox 98.2 F 99 16 142/54 H 99 12/11/18 15:23 12/11/18 15:23 12/11/18 15:23 12/11/18 15:23 12/11/18 15:23 Oxygen Flow Rate (L/min) 2 Oxygen Delivery Method Nasal Cannula Weight: 192 lb 10.944 oz Body Mass Index (BMI) 32.2 Finger Stick Blood Glucose 159 Intake and Output for Last 24 Hours 12/09/18 12/10/18 12/12/18 23:59 23:59 00:59 Intake Total 360 / 360 630 / 630 290 / 290 Output Total 2029 / 2029 0 / 0 Balance 360 / 360 -1400 / -1400 290 / 290 Microbiology Past 72 Hours 12/07/18 15:27 Gram Stain - Final Tissue - Leg, Right Wound Culture - Final Staphylococcus epidermidis Anaerobic Culture - Final No anaerobic bacteria isolated. Laboratory Tests Past 24 Hrs 12/11/18 12/11/18 06:59 06:59 WBC 7.2 RBC 2.66 L Hgb 8.8 L Hct 27.9 L MCV 104.9 H MCH 33.1 H MCHC 31.5 L RDW 22.1 H RDW Differential 82.2 H Plt Count 104 L MPV 12.0 Differential Comment SCANNED Sodium 137 Potassium 3.7 Chloride 98 Carbon Dioxide 29.0 BUN 26 H Creatinine 2.50 H Estim Creat Clear Calc 15.14 Est GFR (MDRD) Af Amer 24 L Est GFR (MDRD) Non-Af 20 L BUN/Creatinine Ratio 10.4 Glucose 147 H Calcium 7.5 L Phosphorus 2.9 Albumin 2.2 L POC Glucose 12/11/18 12/11/18 12/10/18 10:59 06:48 21:21 POC Glucose 178 H 150 H 202 H 12/10/18 15:56 POC Glucose 171 H Assessment/Plan Patient seen by Phil Villa under my supervision Patient has no complaints today. Pain has been fairly well controlled but she does have flareups. She gets lethargic with current pain medication of oxycodone and does not want to take it. Review of systems otherwise negative. She had dialysis with 2 L of fluid removed yesterday. o/e: Vital Signs Height 5 ft 2 in Weight: 192 lb 10.944 oz Weight in Pounds 192.7 lbs Pulse Ox 99 Temperature 98.2 F Pulse Rate 99 Respiratory Rate 16 Blood Pressure [BP] 151/75 Blood Pressure 142/54 Blood Pressure Position [BP] Semi-Fowlers Blood Pressure Position Semi-Fowlers General: Alert, Oriented x3, Cooperative HEENT: Atraumatic, PERRLA, EOMI, Normocephalic Neck: Supple, No JVD, Negative Carotid Bruits Lungs: Clear to auscultation, Normal air movement Cardiovascular: Regular rate, No murmurs Abdomen: Bowel Sounds Present, Soft, Non Tender Extremities: Capillary Refill Less than 3 Seconds, Edema - BL LE edema 2-3+ L>R. chest dialysis catheter in place Skin: No rashes, No breakdown, left ankle blister which is firm,not flaccid Musculoskeletal: No Tenderness to Palpation of Joints or Extremities Neurological: Cranial nerves II-XII grossly intact Psych/Mental Status: Normal Affect, Appropriate, Alert and oriented to time, place, person, mood and affect Plan is to continue dialysis as per nephrology. Continue IV cefazolin for right lower extremity cellulitis. She is awaiting placement. Rest of management as per Phil Villa PA-C's note which I have reviewed and agree with. Code Visit Inpatient E&M: 00669 [facility] Hosp L3
[2018-12-11] MEDS: Acetaminophen 325 MG Tablet 650 MG PO (15:17)
[2018-12-11 16:11] LABS: Bedside Glucose 198 mg/dL (70-110)
[2018-12-11 21:52] LABS: Bedside Glucose 171 mg/dL (70-110)
[2018-12-12] VITALS (16 sets, daily range): BP systolic 114–161; BP diastolic 53–75; PULSE 97–108; RESP 16–18; TEMP 36.5–36.8; O2SAT 93–100
[2018-12-12] MEDS: Clindamycin HCl 150 MG Capsule 300 MG PO ×4 (00:05→17:50)
[2018-12-12 07:01] LABS: Bedside Glucose 150 mg/dL (70-110)
--- NOTE | 2018-12-12 08:27 | PCM.PN.REN ---
Patient Problems: Active and Suspected Problems (Last Reviewed 11/30/18 @ 02:27 by Pete Ramirez DO) JOSE (acute kidney injury) (Acute) GI bleed (Acute) - Physical Exam Vital Signs Temp Pulse Resp BP Pulse Ox 98.2 F 101 H 16 159/54 H 98 12/12/18 02:56 12/12/18 03:04 12/12/18 02:56 12/12/18 02:56 12/12/18 07:31 Oxygen Flow Rate (L/min) 2 Oxygen Delivery Method Nasal Cannula Weight: 87 kg Body Mass Index (BMI) 32.2 Finger Stick Blood Glucose 159 Intake and Output for Last 24 Hours 12/10/18 12/11/18 12/12/18 22:59 23:59 23:59 Intake Total 200 / 200 Output Total Balance 200 / 200 Microbiology Past 72 Hours 12/07/18 15:27 Gram Stain - Final Tissue - Leg, Right Wound Culture - Final Staphylococcus epidermidis Anaerobic Culture - Final No anaerobic bacteria isolated. POC Glucose 12/12/18 12/11/18 12/11/18 06:53 21:43 16:03 POC Glucose 150 H 171 H 198 H 12/11/18 10:59 POC Glucose 178 H Medical Necessity - Tobacco Use Smoking Status: Never smoker Tobacco Use: Non-smoker Assessment/Plan All Active Problems (Last Reviewed 11/30/18 @ 02:27 by Pete Ramirez DO) JOSE (acute kidney injury) (Acute) GI bleed (Acute) GI bleed (Acute) Acute coronary syndrome (Acute) Non-STEMI (non-ST elevated myocardial infarction) (Acute) Hypercholesterolemia (Acute) Congestive heart failure of unknown etiology (Acute) Abnormal EKG (Acute)
--- NOTE | 2018-12-12 08:28 | PCM.PN.REN ---
Patient Problems: Active and Suspected Problems (Last Reviewed 11/30/18 @ 02:27 by Pete Ramirez DO) JOSE (acute kidney injury) (Acute) GI bleed (Acute) Subjective: Continues to complain of pain right lower extremity where her wound is. Remains edematous. Has been tolerating gradual fluid removal on dialysis. - Physical Exam General: Alert, Oriented x3, - - miserable, in constant pain Lungs: Clear to auscultation, Diminished Cardiovascular: Regular rate, Murmur Abdomen: Bowel Sounds Present, Soft, Non Tender, Non-Distended Extremities: Edema - Right leg wrapped, left leg blister medially with small left lateral skin breakdown Musculoskeletal: - - Debilitated, muscle weakness Psych/Mental Status: Normal Affect, Appropriate, Alert and oriented to time, place, person, mood and affect Vital Signs Temp Pulse Resp BP Pulse Ox 98.2 F 101 H 16 159/54 H 98 12/12/18 02:56 12/12/18 03:04 12/12/18 02:56 12/12/18 02:56 12/12/18 07:31 Oxygen Flow Rate (L/min) 2 Oxygen Delivery Method Nasal Cannula Weight: 87 kg Body Mass Index (BMI) 32.2 Finger Stick Blood Glucose 159 Intake and Output for Last 24 Hours 12/10/18 12/11/18 12/12/18 22:59 23:59 23:59 Intake Total 200 / 200 Output Total Balance 200 / 200 Microbiology Past 72 Hours 12/07/18 15:27 Gram Stain - Final Tissue - Leg, Right Wound Culture - Final Staphylococcus epidermidis Anaerobic Culture - Final No anaerobic bacteria isolated. POC Glucose 12/12/18 12/11/18 12/11/18 06:53 21:43 16:03 POC Glucose 150 H 171 H 198 H 12/11/18 10:59 POC Glucose 178 H Medical Necessity - Tobacco Use Smoking Status: Never smoker Tobacco Use: Non-smoker Assessment/Plan All Active Problems (Last Reviewed 11/30/18 @ 02:27 by Pete Ramirez DO) JOSE (acute kidney injury) (Acute) GI bleed (Acute) GI bleed (Acute) Acute coronary syndrome (Acute) Non-STEMI (non-ST elevated myocardial infarction) (Acute) Hypercholesterolemia (Acute) Congestive heart failure of unknown etiology (Acute) Abnormal EKG (Acute) 1. 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 HD TTS. 2. ACS s/p stent LAD, on plavix, cardiology following 3. DM2 primary service mgmt 4. HTN stable, hold for hypotension on dialysis. 5. Anemia, Acute GI bleed on plavix, ASA. Continue ESTEPHANIE therapy on dialysis. prbc as needed 6. Cellulitis RLE continue with wound care. s/p debridement and skin biopsy to evaluate for calciphylaxis 7. Thrombocytopenia plts improving 8. Anasarca fluid removal as tolerated on dialysis. DW pt, pt spouse at bedside
[2018-12-12] MEDS: Ranolazine 500 MG Tablet PO ×2 (09:24→21:09)
[2018-12-12] MEDS: Aspirin 81 MG TAB.CHEW PO (09:25)
[2018-12-12] MEDS: azaTHIOprine 50 MG Tablet 100 MG PO (09:25)
[2018-12-12] MEDS: Insulin Lispro 100 UNIT/ML INSULN.PEN SC ×4 (09:25→21:09)
[2018-12-12] MEDS: Clopidogrel Bisulfate 75 MG Tablet PO (09:25)
[2018-12-12] MEDS: Pantoprazole Sodium 20 MG Tablet PO (09:25)
[2018-12-12] MEDS: Nepro Liquid 120 ML LIQUID PO ×2 (09:26→12:42)
[2018-12-12] MEDS: Folic Acid/Vitamin B Comp W-C 1 Capsule 1 CAP PO (09:26)
--- NOTE | 2018-12-12 09:42 | CASEMGMT ---
JAZLYN faxed updates to [facility]. Await pre-cert. Ludmila BOO DIRECTOR OF SURGERY
--- NOTE | 2018-12-12 11:30 | CASEMGMT ---
Received call from Teresa at [facility]. She said insurance wants therapy notes from today as patient did not do much with therapy yesterday. JAZLYN looked at patient's therapy notes and noted she is a max assist. JAZLYN spoke with patient's asking him if he is still sure he will be able to transport patient to dialysis. He said he will do whatever he has to do to get her there. JAZLYN told him [facility] is not going to assist with transportation and if he cannot take her they will not be able to accept her. He said he wants her to go to [facility] and he will do whatever he has to do. JAZLYN then faxed PT/OT notes from today. Ludmila BOO MSW
--- NOTE | 2018-12-12 11:59 | NURSING ---
wound photo: right lateral lower leg
--- NOTE | 2018-12-12 12:00 | NURSING ---
wound photo: bulla left medial lower leg
--- NOTE | 2018-12-12 12:01 | NURSING ---
wound photo: discoloration left lateral lower leg
[2018-12-12 12:45] LABS: Bedside Glucose 163 mg/dL (70-110)
--- NOTE | 2018-12-12 13:09 | PN_ITS ---
<Phil Villa - Last Filed: 12/12/18 13:06> Patient Problems: Active and Suspected Problems (Last Reviewed 11/30/18 @ 02:27 by Pete Ramirez DO) JOSE (acute kidney injury) (Acute) GI bleed (Acute) Subjective: Remains very tired. She thinks the pain regimen change may have helped slightly however not significantly. No chest pain, shortness of breath, pressure, tightness, worsening of edema - Physical Exam General: Alert, Oriented x3, Cooperative HEENT: Atraumatic, PERRLA, EOMI, Normocephalic Neck: Supple, No JVD, Negative Carotid Bruits Lungs: Clear to auscultation, Normal air movement Cardiovascular: Regular rate, Murmur Abdomen: Bowel Sounds Present, Soft, Non Tender Extremities: Capillary Refill Less than 3 Seconds, Edema, - - wound dressed appropriately Skin: No rashes, - - blister left medial ankle Musculoskeletal: No Tenderness to Palpation of Joints or Extremities Neurological: Cranial nerves II-XII grossly intact Psych/Mental Status: Normal Affect, Appropriate, Alert and oriented to time, place, person, mood and affect Vital Signs Temp Pulse Resp BP Pulse Ox 98.1 F 99 16 129/56 H 97 12/12/18 09:17 12/12/18 10:53 12/12/18 09:17 12/12/18 09:17 12/12/18 09:17 Oxygen Flow Rate (L/min) 2 Oxygen Delivery Method Nasal Cannula Weight: 191 lb 12.835 oz Body Mass Index (BMI) 32.2 Finger Stick Blood Glucose 159 Intake and Output for Last 24 Hours 12/10/18 12/11/18 12/12/18 22:59 23:59 23:59 Intake Total 400 / 400 Output Total Balance 400 / 400 Microbiology Past 72 Hours 12/07/18 15:27 Gram Stain - Final Tissue - Leg, Right Wound Culture - Final Staphylococcus epidermidis Anaerobic Culture - Final No anaerobic bacteria isolated. Laboratory Tests Past 24 Hrs 12/12/18 10:18 Blood Type O POSITIVE Antibody Screen NEGATIVE Crossmatch See Detail POC Glucose 12/12/18 12/12/18 12/11/18 12:37 06:53 21:43 POC Glucose 163 H 150 H 171 H 12/11/18 16:03 POC Glucose 198 H Medical Necessity - Tobacco Use Smoking Status: Never smoker Tobacco Use: Non-smoker Assessment/Plan All Active Problems (Last Reviewed 11/30/18 @ 02:27 by Pete Ramirez DO) JOSE (acute kidney injury) (Acute) GI bleed (Acute) GI bleed (Acute) Acute coronary syndrome (Acute) Non-STEMI (non-ST elevated myocardial infarction) (Acute) Hypercholesterolemia (Acute) Congestive heart failure of unknown etiology (Acute) Abnormal EKG (Acute) 1. ESRD - Continue dialysis per Dr. Pearson. 2. Acute blood loss anemia secondary to GI bleed - Stable, resolved. initially 2/2 hemorrhoids, then wound blood loss. s/p 2 units PRBC total. EPO per renal. -Give additional unit blood today (3 total this stay). She is severely fatigued. 3. Elevated troponin, history of CAD with multiple stents- No CP. Cardiology to reevaluate as o/p. Continue aspirin and plavix as she recently had a stent. 4. History of systolic congestive heart failure-EF 50% recently. No sign of acute failure. 5. Type 2 diabetes mellitus with obesity - stable 6. 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 changed to clinda. continue wound care. f[facility]. Continue current pain regimen. 8. Thrombocytopenia - Recovering. Multiple factors contributing, large wound with active bleeding, cirrhosis, ESRD, medications including asa/plavix, azathioprine, cefazolin. If worsens consider hematology consult. Avoid heparin products. 9. Hx autoimmune liver dz/cirrhosis - azathioprine. DVT prophylaxis: SCDs. [place] planning: [place] This patient was seen by Phil Villa PA-C under the supervision of Doctor Jaramillo. <Moon Jaramillo - Last Filed: 12/12/18 15:22> - Physical Exam Vital Signs Temp Pulse Resp BP Pulse Ox 97.9 F 97 16 114/55 L 100 12/12/18 14:25 12/12/18 14:25 12/12/18 14:25 12/12/18 14:25 12/12/18 14:25 Oxygen Flow Rate (L/min) 2 Oxygen Delivery Method Nasal Cannula Weight: 191 lb 12.835 oz Body Mass Index (BMI) 32.2 Finger Stick Blood Glucose 159 Intake and Output for Last 24 Hours 12/10/18 12/11/18 12/12/18 22:59 23:59 23:59 Intake Total 400 / 400 Output Total Balance 400 / 400 Microbiology Past 72 Hours 12/07/18 15:27 Gram Stain - Final Tissue - Leg, Right Wound Culture - Final Staphylococcus epidermidis Anaerobic Culture - Final No anaerobic bacteria isolated. Laboratory Tests Past 24 Hrs 12/12/18 10:18 Blood Type O POSITIVE Antibody Screen NEGATIVE Crossmatch See Detail POC Glucose 12/12/18 12/12/18 12/11/18 12:37 06:53 21:43 POC Glucose 163 H 150 H 171 H 12/11/18 16:03 POC Glucose 198 H Assessment/Plan Patient seen by Phil Villa PA-C under my supervision Patient seen and examined. She still remains very lethargic. She was given pain meds for the pain in her LLE, and thinks that is what may have made her woozy. Review of systems is otherwise negative. She is to be given a unit of PRBC today per nephrology. Hb is 8.8 today. o/e: Vital Signs Height 5 ft 2 in Weight: 191 lb 12.835 oz Weight in Pounds 191.8 lbs Pulse Ox 100 Temperature 97.9 F Pulse Rate 97 Respiratory Rate 16 Blood Pressure [BP] 151/75 Blood Pressure 114/55 Blood Pressure Position [BP] Semi-Fowlers Blood Pressure Position Sitting General: Alert, Oriented x3, Cooperative HEENT: Atraumatic, PERRLA, EOMI, Normocephalic Neck: Supple, No JVD, Negative Carotid Bruits Lungs: Clear to auscultation, Normal air movement Cardiovascular: Regular rate, No murmurs Abdomen: Bowel Sounds Present, Soft, Non Tender Extremities: Capillary Refill Less than 3 Seconds, Edema - BL LE edema 2-3+ L>R. chest dialysis catheter in place Skin: No rashes, No breakdown, still left ankle blister which is firm,not flaccid and not tender to palpation Musculoskeletal: No Tenderness to Palpation of Joints or Extremities Neurological: Cranial nerves II-XII grossly intact Psych/Mental Status: Normal Affect, Appropriate, Alert and oriented to time, place, person, mood and affect Plan is to transfuse one unit of PRBC today. Still awaiting placement in SNF. Patient now on PO clindamycin since wound cultured Staph epidermidis sensitive to clindamycin for RLE cellulitis. She is awaiting placement. Dialysis as per nephrology. Biopsy of RLE skin add soft tissue showed ulceration with associated acute and chronic inflammation and granulation, with focal dystrophic c alcification. Rest of management as per Phil Villa PA-C 's note, which I have reviewed and agree with. Code Visit Inpatient E&M: 39283 Subs Hosp L3
--- NOTE | 2018-12-12 14:27 | CASEMGMT ---
Received call from Ryan Villavicencio and Brigette made aware that we are still awaiting insurance approval at this time, voices understanding. Brigette is aware that pt is a max assist of 2 at this time. Julio César BELTRAN CM
--- NOTE | 2018-12-12 14:54 | CASEMGMT ---
SW received call from Teresa at [facility] [place]. She said she looked at therapy's notes and patient is not a max to dependent assist of 2. She asked how patient's was going to transport her to dialysis. JAZLYN told her about conversation with . She said that they have to make sure she is safe to go by car. She is going to check with her housekeeper head and will get back with JAZLYN. Ludmila BOO MSW
--- NOTE | 2018-12-12 15:16 | CASEMGMT ---
Yimi HOBSON received call from [facility] stating they cannot take pt now at this time. Call to Ryan Villavicencio to notify them that pt will not be starting OP dialysis there tomorrow. Jennifer voices understanding and this RN APPLE advised her that we will keep them up to date, voices understanding. Julio César BELTRAN CM
--- NOTE | 2018-12-12 15:35 | CASEMGMT ---
Received return call from Teresa at [facility] and they do not feel it is safe for patient to go to dialysis via car, therefore they cannot take patient. JAZLYN asked Teresa to cancel the pre-cert so JAZLYN can make a referral elsewhere. JAZLYN spoke with patient's and let him know [facility] does not feel patient is safe to go by car therefore they cannot take patient. He said they will try [facility]. JAZLYN told him JAZLYN will work on this. JAZLYN called [facility] and made a referral. JAZLYN also gave her patient's dialysis schedule. JAZLYN faxed referral. Ludmila BOO KNAPSACK SPRAYER
[2018-12-12] MEDS: Glucerna Shake 120 ML LIQUID PO ×2 (17:51→21:09)
[2018-12-12 18:01] LABS: Bedside Glucose 164 mg/dL (70-110)
[2018-12-12 22:31] LABS: Bedside Glucose 177 mg/dL (70-110)
[2018-12-13] VITALS (13 sets, daily range): BP systolic 113–147; BP diastolic 43–63; PULSE 88–100; RESP 16–20; TEMP 36.6–36.9; O2SAT 92–98
[2018-12-13] MEDS: Clindamycin HCl 150 MG Capsule 300 MG PO ×5 (00:42→23:15)
[2018-12-13 06:40] LABS: Bedside Glucose 140 mg/dL (70-110)
[2018-12-13] MEDS: Midodrine HCl 5 MG Tablet 10 MG PO (07:46)
--- NOTE | 2018-12-13 10:12 | CASEMGMT ---
[facility] is able to accept patient. Pre-cert request has been submitted. She is working on arranging transportation. She will let know when she hears something. spoke with patient's as patient was sleeping. let him know [facility] can take patient and they are working on setting up transport. He said that he can transport if they are not able. He said that their oldest son is upset over this situation and he will be in later today. He will want to talk with . He said his son knows some people that they transport for a job and they can assist. Await pre-cert for [facility]. Ludmila BOO MSW
[2018-12-13 11:50] LABS: Bedside Glucose 110 mg/dL (70-110)
--- NOTE | 2018-12-13 11:59 | CASEMGMT ---
SW spoke with patient's son per his request. JAZLYN explained the situation that happened with [facility]. SW explained that [facility] can accept her and they are trying to arrange transportation for dialysis. He thanked SW for talking with him and explaining everything. Plan: [facility] pending insurance approval. Ludmila SANDOVAL
--- NOTE | 2018-12-13 12:10 | PCM.PN.REN ---
Patient Problems: Active and Suspected Problems (Last Reviewed 11/30/18 @ 02:27 by Pete Ramirez DO) JOSE (acute kidney injury) (Acute) GI bleed (Acute) Subjective: seen on dialysis this am. Tolerating 1L fluid removal. Edema slowly improving. New skin lesions on legs bilaterally. Remains debilitated. ECF placement pending. - Physical Exam General: Alert, - - mild discomfort Oral: Moist Mucosa Lungs: Clear to auscultation Cardiovascular: Regular rate, Murmur Abdomen: Bowel Sounds Present, Soft, Non Tender, Non-Distended Extremities: Edema - improving Skin: Ulcer/ Wound - rt leg laterally, medially, left leg laterally Musculoskeletal: Muscle Wasting Psych/Mental Status: Depressed, Alert and oriented to time, place, person, mood and affect Vital Signs Temp Pulse Resp BP Pulse Ox 98.1 F 97 20 H 147/57 H 92 12/13/18 04:00 12/13/18 08:00 12/13/18 08:00 12/13/18 08:00 12/13/18 07:53 Oxygen Flow Rate (L/min) 2 Oxygen Delivery Method Room Air Weight: 88.3 kg Body Mass Index (BMI) 32.2 Finger Stick Blood Glucose 159 Intake and Output for Last 24 Hours 12/11/18 12/12/18 12/13/18 23:59 23:59 23:59 Intake Total 1185 / 1185 100 / 100 Output Total 100 / 100 Balance 1085 / 1085 100 / 100 Microbiology Past 72 Hours 12/07/18 15:27 Gram Stain - Final Tissue - Leg, Right Wound Culture - Final Staphylococcus epidermidis Anaerobic Culture - Final No anaerobic bacteria isolated. Laboratory Tests Past 24 Hrs 12/12/18 10:18 Blood Type O POSITIVE Antibody Screen NEGATIVE Crossmatch See Detail POC Glucose 12/13/18 12/13/18 12/12/18 11:47 06:30 21:07 POC Glucose 110 140 H 177 H 12/12/18 12/12/18 17:49 12:37 POC Glucose 164 H 163 H Medical Necessity - Tobacco Use Smoking Status: Never smoker Tobacco Use: Non-smoker Assessment/Plan All Active Problems (Last Reviewed 11/30/18 @ 02:27 by Pete Ramirez DO) JOSE (acute kidney injury) (Acute) GI bleed (Acute) GI bleed (Acute) Acute coronary syndrome (Acute) Non-STEMI (non-ST elevated myocardial infarction) (Acute) Hypercholesterolemia (Acute) Congestive heart failure of unknown etiology (Acute) Abnormal EKG (Acute) 1. 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 HD TTS. Seen on dialysis. Attempt 1L fluid removal. 2. ACS s/p stent LAD, on plavix, cardiology following 3. DM2 primary service mgmt 4. HTN stable 5. Anemia, GI bleed. Continue ESTEPHANIE therapy on dialysis. prbc as needed 6. Cellulitis RLE continue with wound care. s/p debridement and skin biopsy. Discussed biopsy findings with pathology. Findings with calcification as expected with CKD, CAD, DM, and HTN, but equivocal for calciphylaxis. 7. Thrombocytopenia plts improving 8. Anasarca fluid removal as tolerated on dialysis. DW pt, pt spouse at bedside
[2018-12-13] MEDS: Aspirin 81 MG TAB.CHEW PO (12:31)
[2018-12-13] MEDS: Acetaminophen 325 MG Tablet 650 MG PO (12:31)
[2018-12-13] MEDS: Pantoprazole Sodium 20 MG Tablet PO (12:32)
[2018-12-13] MEDS: Folic Acid/Vitamin B Comp W-C 1 Capsule 1 CAP PO (12:32)
[2018-12-13] MEDS: azaTHIOprine 50 MG Tablet 100 MG PO (12:32)
[2018-12-13] MEDS: Clopidogrel Bisulfate 75 MG Tablet PO (12:33)
[2018-12-13] MEDS: Ranolazine 500 MG Tablet PO ×2 (12:33→20:11)
--- NOTE | 2018-12-13 12:41 | PCM.PROGNOTE ---
<Phil Villa - Last Filed: 12/13/18 12:41> Patient Problems: Active and Suspected Problems (Last Reviewed 11/30/18 @ 02:27 by Pete Ramirez DO) JOSE (acute kidney injury) (Acute) GI bleed (Acute) Subjective: Encouraged activity, OOB if possible today, up to chair. Still lethargic but she does feel improvement after the blood yesterday and feels the pain regimen change has been beneficial. Pain is well controlled. Tolerating dialysis. No CP/SOB. Wounds dressed appropriately. - Physical Exam General: Alert, Oriented x3, Cooperative HEENT: Atraumatic, PERRLA, EOMI, Normocephalic Neck: Supple, No JVD, Negative Carotid Bruits Lungs: Clear to auscultation, Normal air movement Cardiovascular: Regular rate, No murmurs Abdomen: Bowel Sounds Present, Soft, Non Tender Extremities: No edema, Capillary Refill Less than 3 Seconds Skin: No rashes, No breakdown, - - wounds appropariately dressed, DEWEY wraps in place. Musculoskeletal: No Tenderness to Palpation of Joints or Extremities Neurological: Cranial nerves II-XII grossly intact Psych/Mental Status: Normal Affect, Appropriate Vital Signs Temp Pulse Resp BP Pulse Ox 98.1 F 97 20 H 147/57 H 92 12/13/18 04:00 12/13/18 08:00 12/13/18 08:00 12/13/18 08:00 12/13/18 07:53 Oxygen Flow Rate (L/min) 2 Oxygen Delivery Method Room Air Weight: 194 lb 10.691 oz Body Mass Index (BMI) 32.2 Finger Stick Blood Glucose 159 Intake and Output for Last 24 Hours 12/11/18 12/12/18 12/13/18 23:59 23:59 23:59 Intake Total 1185 / 1185 100 / 100 Output Total 100 / 100 Balance 1085 / 1085 100 / 100 Microbiology Past 72 Hours 12/07/18 15:27 Gram Stain - Final Tissue - Leg, Right Wound Culture - Final Staphylococcus epidermidis Anaerobic Culture - Final No anaerobic bacteria isolated. Laboratory Tests Past 24 Hrs 12/12/18 10:18 Blood Type O POSITIVE Antibody Screen NEGATIVE Crossmatch See Detail POC Glucose 12/13/18 12/13/18 12/12/18 11:47 06:30 21:07 POC Glucose 110 140 H 177 H 12/12/18 12/12/18 17:49 12:37 POC Glucose 164 H 163 H Medical Necessity - Tobacco Use Smoking Status: Never smoker Tobacco Use: Non-smoker Assessment/Plan All Active Problems (Last Reviewed 11/30/18 @ 02:27 by Pete Ramirez DO) JOSE (acute kidney injury) (Acute) GI bleed (Acute) GI bleed (Acute) Acute coronary syndrome (Acute) Non-STEMI (non-ST elevated myocardial infarction) (Acute) Hypercholesterolemia (Acute) Congestive heart failure of unknown etiology (Acute) Abnormal EKG (Acute) 1. ESRD - Continue dialysis per Dr. Pearson. 2. Acute blood loss anemia secondary to GI bleed - Stable, resolved. initially 2/2 hemorrhoids, then wound blood loss. s/p 3 units PRBC total. EPO per renal. -Blood yesterday improved her fatigue -check H/H in AM 3. Elevated troponin, history of CAD with multiple stents- No CP. Cardiology to reevaluate as o/p. Continue aspirin and plavix as she recently had a stent. 4. History of systolic congestive heart failure-EF 50% recently. No sign of acute failure. 5. Type 2 diabetes mellitus with obesity - stable 6. 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 changed to clinda. continue wound care. f/u with [facility]/Wound care center. Continue current pain regimen. 8. Thrombocytopenia - Recovering. Multiple factors contributing, large wound with active bleeding, cirrhosis, ESRD, medications including asa/plavix, azathioprine, cefazolin. If worsens consider hematology consult. Avoid heparin products. 9. Hx autoimmune liver dz/cirrhosis - azathioprine. DVT prophylaxis: SCDs. Discharge planning: [place]. This patient was seen by Phil Villa PA-C under the supervision of Doctor Jaramillo. <Moon Jaramillo - Last Filed: 12/13/18 17:01> Subjective: Patient seen by Phil Villa PA-C under my supervision. Patient seen and examined. She is much more alert today since opiates were discontinued. Feels much better after she was transfused 1 unit of packed red blood cells. Review of systems otherwise negative. She is still awaiting placement o/e: Vital Signs Height 5 ft 2 in Weight: 194 lb 10.691 oz Weight in Pounds 194.7 lbs Pulse Ox 94 Temperature 98.2 F Pulse Rate 99 Respiratory Rate 16 Blood Pressure [BP] 151/75 Blood Pressure 113/43 Blood Pressure Position [BP] Semi-Fowlers Blood Pressure Position Semi-Fowlers General: Alert, Oriented x3, Cooperative HEENT: Atraumatic, PERRLA, EOMI, Normocephalic Neck: Supple, No JVD, Negative Carotid Bruits Lungs: Clear to auscultation, Normal air movement Cardiovascular: Regular rate, No murmurs Abdomen: Bowel Sounds Present, Soft, Non Tender Extremities: Capillary Refill Less than 3 Seconds, Edema - BL LE edema 2-3+ L>R. chest dialysis catheter in place Skin: No rashes, No breakdown, left ankle blister has ruptured. LEs bandaged. Musculoskeletal: No Tenderness to Palpation of Joints or Extremities Neurological: Cranial nerves II-XII grossly intact Psych/Mental Status: Normal Affect, Appropriate, Alert and oriented to time, place, person, mood and affect Plan is to continue with PO clindamycin. Still awaiting placement. Nephrology on board. Rest of management as per Phil Villa PA-C 's note, which I have reviewed and agree with. - Physical Exam Vital Signs Temp Pulse Resp BP Pulse Ox 98.2 F 99 16 113/43 L 94 12/13/18 15:00 12/13/18 15:00 12/13/18 15:00 12/13/18 15:00 12/13/18 15:00 Oxygen Flow Rate (L/min) 2 Oxygen Delivery Method Room Air Weight: 194 lb 10.691 oz Body Mass Index (BMI) 32.2 Finger Stick Blood Glucose 159 Intake and Output for Last 24 Hours 12/11/18 12/12/18 12/13/18 23:59 23:59 23:59 Intake Total 1185 / 1185 100 / 100 Output Total 100 / 100 1999 Balance 1085 / 1085 -1900 / -1900 Microbiology Past 72 Hours 12/07/18 15:27 Gram Stain - Final Tissue - Leg, Right Wound Culture - Final Staphylococcus epidermidis Anaerobic Culture - Final No anaerobic bacteria isolated. Laboratory Tests Past 24 Hrs 12/12/18 10:18 Crossmatch See Detail POC Glucose 12/13/18 12/13/18 12/13/18 16:32 11:47 06:30 POC Glucose 167 H 110 140 H 12/12/18 12/12/18 21:07 17:49 POC Glucose 177 H 164 H Code Visit Inpatient E&M: 00419 Subs Hosp L3
[2018-12-13] MEDS: Ondansetron 4 MG/2 ML Vial IV (12:44)
--- NOTE | 2018-12-13 12:57 | DIALYSIS ---
HDx3.5 hours completed, tolerated fairly well, systolic 100 toward end of tx, midodrine given pre-tx, UF 1000mL; accessed via R chest tunneled HD cath, ports packed with heparin
[2018-12-13] MEDS: Glucerna Shake 120 ML LIQUID PO ×3 (14:09→20:11)
[2018-12-13 16:46] LABS: Bedside Glucose 167 mg/dL (70-110)
[2018-12-13] MEDS: Insulin Lispro 100 UNIT/ML INSULN.PEN SC (17:15)
--- NOTE | 2018-12-13 17:28 | PCM.PN.SRG ---
Patient Problems: Active and Suspected Problems (Last Reviewed 11/30/18 @ 02:27 by Pete Ramirez DO) JOSE (acute kidney injury) (Acute) GI bleed (Acute) Subjective: Postop #6 Patient is resting comfortably getting dialysis. - Physical Exam General: Alert, Oriented x3 HEENT: PERRLA, EOMI Oral: Moist Mucosa Neck: Supple Abdomen: Soft, Non-Distended Skin: Ulcer/ Wound - right lateral leg wound stable. No active bleeding seen. No evidence of infection. Periwound bruising shows some progression. Will observe the surrounding bruised areas. Can further evaluate at the wound center for need for additional debridement. Some early bruising seen on the left leg. Will observe at this time. Neurological: Cranial nerves II-XII grossly intact Psych/Mental Status: Normal Affect, Appropriate Vital Signs Temp Pulse Resp BP Pulse Ox 98.2 F 99 16 113/43 L 94 12/13/18 15:00 12/13/18 15:00 12/13/18 15:00 12/13/18 15:00 12/13/18 15:00 Oxygen Flow Rate (L/min) 2 Oxygen Delivery Method Room Air Weight: 194 lb 10.691 oz Body Mass Index (BMI) 32.2 Finger Stick Blood Glucose 159 Intake and Output for Last 24 Hours 12/11/18 12/12/18 12/13/18 23:59 23:59 23:59 Intake Total 1185 / 1185 100 / 100 Output Total 100 / 100 1999 Balance 1085 / 1085 -1900 / -1900 Microbiology Past 72 Hours 12/07/18 15:27 Gram Stain - Final Tissue - Leg, Right Wound Culture - Final Staphylococcus epidermidis Anaerobic Culture - Final No anaerobic bacteria isolated. Laboratory Tests Past 24 Hrs 12/12/18 10:18 Crossmatch See Detail POC Glucose 12/13/18 12/13/18 12/13/18 16:32 11:47 06:30 POC Glucose 167 H 110 140 H 12/12/18 12/12/18 21:07 17:49 POC Glucose 177 H 164 H Medical Necessity - Tobacco Use Smoking Status: Never smoker Tobacco Use: Non-smoker Assessment/Plan All Active Problems (Last Reviewed 11/30/18 @ 02:27 by Pete Ramirez DO) JOSE (acute kidney injury) (Acute) GI bleed (Acute) GI bleed (Acute) Acute coronary syndrome (Acute) Non-STEMI (non-ST elevated myocardial infarction) (Acute) Hypercholesterolemia (Acute) Congestive heart failure of unknown etiology (Acute) Abnormal EKG (Acute) 1. Necrotic eschar cluster with surrounding contusion right lateral leg, possible calciphylaxis, and mild contusion left leg. 2. ESRD on dialysis. 3. Diabetes mellitus. 4. CAD. 5. Recent MD with placement of a stent. 6. MRSE. Patient right leg wound is stable. Less pain with the dressing changes. There is some more progression of her periwound bruising. She also has new onset contusion left leg. Will observe at this time. Operative culture shows MRSE. Continue Cleocin. Pathology shows dystrophic calcification. Continue daily Silver dressing changes to the right lateral leg wound. This is followed by the DEWEY wrap for compression. Patient may ambulate with assist using her walker. Try to minimize standing. When she gets to her destination, she needs to sit and elevate her right leg. Pain is well controlled with the Oxycodone for severe pain and Tylenol for moderate pain. Plans are being made for ECF placement. After discharge, can followup at the Wound Center. If there is a plateau in the healing process and she is stable medically, can then proceed with delayed closure with skin grafting. Her HgbA1c is 5.7. The HgbA1c needs to be less than 8 in the future if a skin graft is being considered for closure. Anticipate increased metabolic demands from her planned surgical wound. Prealbumin is 10.2. Encourage nutritional supplementation with protein to help the healing process.
--- NOTE | 2018-12-13 20:12 | NURSING ---
Pt requesting meds be given with vitals at this time.
[2018-12-13 20:36] LABS: Bedside Glucose 144 mg/dL (70-110)
[2018-12-13] MEDS: Nystatin Powder 15gm Bottle 1 APPLIC TOPICAL (23:16)
[2018-12-14] VITALS (9 sets, daily range): BP systolic 147–156; BP diastolic 57–73; PULSE 92–100; RESP 16–19; TEMP 36.6–36.7; O2SAT 92–94
[2018-12-14] MEDS: Nystatin Powder 15gm Bottle 1 APPLIC TOPICAL ×2 (05:02→11:32)
[2018-12-14] MEDS: Clindamycin HCl 150 MG Capsule 300 MG PO ×2 (05:02→11:32)
[2018-12-14 06:34] LABS: Hematocrit 30.6 % (37-47); Hemoglobin 9.9 g/dl (12.0-15.0)
[2018-12-14 06:51] LABS: Bedside Glucose 118 mg/dL (70-110)
[2018-12-14] MEDS: Pantoprazole Sodium 20 MG Tablet PO (08:41)
[2018-12-14] MEDS: Clopidogrel Bisulfate 75 MG Tablet PO (08:41)
[2018-12-14] MEDS: Ranolazine 500 MG Tablet PO (08:41)
[2018-12-14] MEDS: Folic Acid/Vitamin B Comp W-C 1 Capsule 1 CAP PO (08:41)
[2018-12-14] MEDS: Aspirin 81 MG TAB.CHEW PO (08:41)
[2018-12-14] MEDS: azaTHIOprine 50 MG Tablet 100 MG PO (08:42)
[2018-12-14] MEDS: 0.9% NaCl Peripheral Flush Adult/Peds IV (08:44)
[2018-12-14] MEDS: Glucerna Shake 120 ML LIQUID PO ×2 (08:45→11:32)
[2018-12-14] MEDS: Insulin Lispro 100 UNIT/ML INSULN.PEN SC (11:31)
--- NOTE | 2018-12-14 11:38 | PCM.PROGNOTE ---
<Phil Villa - Last Filed: 12/14/18 11:38> Subjective: More alert today. agrees she looks better. Affect more pleasant. Still weak. No SOB/cough/CP/N/V. Pain is controlled. - Physical Exam General: Alert, Oriented x3, Cooperative HEENT: Atraumatic, PERRLA, EOMI, Normocephalic Neck: Supple, No JVD, Negative Carotid Bruits Lungs: Clear to auscultation, Normal air movement Cardiovascular: Regular rate, No murmurs Abdomen: Bowel Sounds Present, Soft, Non Tender Extremities: No edema, Capillary Refill Less than 3 Seconds Skin: No rashes, No breakdown Musculoskeletal: No Tenderness to Palpation of Joints or Extremities Neurological: Cranial nerves II-XII grossly intact Psych/Mental Status: Normal Affect, Appropriate, Alert and oriented to time, place, person, mood and affect Vital Signs Temp Pulse Resp BP Pulse Ox 98.1 F 94 19 H 156/69 H 92 12/14/18 08:37 12/14/18 10:59 12/14/18 08:37 12/14/18 08:37 12/14/18 08:37 Oxygen Flow Rate (L/min) 2 Oxygen Delivery Method Room Air Weight: 194 lb 10.691 oz Body Mass Index (BMI) 32.2 Finger Stick Blood Glucose 159 Intake and Output for Last 24 Hours 12/12/18 12/13/18 12/14/18 23:59 23:59 23:59 Intake Total 1185 / 1185 260 / 260 220 / 220 Output Total 100 / 100 1999 / 1999 Balance 1085 / 1085 -1740 / -1740 220 / 220 Laboratory Tests Past 24 Hrs 12/14/18 06:00 Hgb 9.9 L Hct 30.6 L POC Glucose 12/14/18 12/13/18 12/13/18 06:45 20:09 16:32 POC Glucose 118 H 144 H 167 H 12/13/18 11:47 POC Glucose 110 Medical Necessity - Tobacco Use Smoking Status: Never smoker Tobacco Use: Non-smoker Assessment/Plan All Active Problems (Last Reviewed 11/30/18 @ 02:27 by Pete Ramirez DO) JOSE (acute kidney injury) (Acute) GI bleed (Acute) Anemia (Acute) Cellulitis (Acute) Thrombocytopenia (Acute) GI bleed (Acute) Acute coronary syndrome (Acute) Non-STEMI (non-ST elevated myocardial infarction) (Acute) Congestive heart failure of unknown etiology (Acute) Abnormal EKG (Acute) 1. ESRD - Continue dialysis per Dr. Pearson. BMP in AM. 2. Acute blood loss anemia secondary to GI bleed - Stable, resolved. initially 2/2 hemorrhoids, then wound blood loss. s/p 3 units PRBC total. EPO per renal. -Blood yesterday improved her fatigue -H/H improved. 3. Elevated troponin, history of CAD with multiple stents- No CP. Cardiology to reevaluate as o/p. Continue aspirin and plavix as she recently had a stent. 4. History of systolic congestive heart failure-EF 50% recently. No sign of acute failure. 5. Type 2 diabetes mellitus with obesity - stable 6. 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 changed to clinda. continue wound care. f/u with [facility] center. Continue current pain regimen. 8. Thrombocytopenia - Recovering. Multiple factors contributing, large wound with active bleeding, cirrhosis, ESRD, medications including asa/plavix, azathioprine, cefazolin. If worsens consider hematology consult. Avoid heparin products. 9. Hx autoimmune liver dz/cirrhosis - azathioprine. DVT prophylaxis: SCDs. Discharge planning: [facility]. This patient was seen by Phil Villa PA-C under the supervision of Doctor Clint. <Moon Jaramillo - Last Filed: 12/14/18 17:23> - Physical Exam Vital Signs Temp Pulse Resp BP Pulse Ox 98 F 99 18 156/73 H 94 12/14/18 15:42 12/14/18 15:42 12/14/18 15:42 12/14/18 15:42 12/14/18 15:42 Oxygen Flow Rate (L/min) 2 Oxygen Delivery Method Room Air Weight: 194 lb 10.691 oz Body Mass Index (BMI) 32.2 Finger Stick Blood Glucose 159 Intake and Output for Last 24 Hours 12/12/18 12/13/18 12/14/18 23:59 23:59 23:59 Intake Total 1185 / 1185 260 / 260 680 / 680 Output Total 100 / 100 1999 / 1999 Balance 1085 / 1085 -1740 / -1740 680 / 680 Laboratory Tests Past 24 Hrs 12/14/18 06:00 Hgb 9.9 L Hct 30.6 L POC Glucose 12/14/18 12/14/18 12/13/18 11:31 06:45 20:09 POC Glucose 175 H 118 H 144 H Assessment/Plan Patient seen and examined. She has no complaitns today. She is to be discharged to her SNF today. Review of systems otherwise negative. Labs and vitals reviewed. Home medications reviewed and reconciled. Vital Signs Height 5 ft 2 in Weight: 194 lb 10.691 oz Weight in Pounds 194.7 lbs Pulse Ox 94 Temperature 98 F Pulse Rate 99 Respiratory Rate 18 Blood Pressure [BP] 151/75 Blood Pressure 156/73 Blood Pressure Position [BP] Semi-Fowlers Blood Pressure Position Semi-Fowlers General: Alert, Oriented x3, Cooperative HEENT: Atraumatic, PERRLA, EOMI, Normocephalic Neck: Supple, No JVD, Negative Carotid Bruits Lungs: Clear to auscultation, Normal air movement Cardiovascular: Regular rate, No murmurs Abdomen: Bowel Sounds Present, Soft, Non Tender Extremities: Capillary Refill Less than 3 Seconds, Edema - BL LE edema 2-3+ L>R. chest dialysis catheter in place Skin: No rashes, No breakdown, left ankle blister has ruptured. LEs bandaged. Musculoskeletal: No Tenderness to Palpation of Joints or Extremities Neurological: Cranial nerves II-XII grossly intact Psych/Mental Status: Normal Affect, Appropriate, Alert and oriented to time, place, person, mood and affect For discharge to [facility]. Rest of management as per Phil Villa PA-C 's note, which I have reviewed and agree with. Code Visit Inpatient E&M: 92778 Subs Hosp L3
[2018-12-14 11:50] LABS: Bedside Glucose 175 mg/dL (70-110)
--- NOTE | 2018-12-14 12:39 | PCM.PN.REN ---
Patient Problems: Active and Suspected Problems (Last Reviewed 11/30/18 @ 02:27 by Pete Ramirez DO) JOSE (acute kidney injury) (Acute) GI bleed (Acute) Subjective: more awake, less edematous. Next dialysis Thurs. Await disposition - Physical Exam General: Alert, Oriented x3, Cooperative, No apparent distress Lungs: Clear to auscultation Cardiovascular: Regular rate Extremities: Edema Psych/Mental Status: Alert and oriented to time, place, person, mood and affect Vital Signs Temp Pulse Resp BP Pulse Ox 98.1 F 94 19 H 156/69 H 92 12/14/18 08:37 12/14/18 10:59 12/14/18 08:37 12/14/18 08:37 12/14/18 08:37 Oxygen Flow Rate (L/min) 2 Oxygen Delivery Method Room Air Weight: 88.3 kg Body Mass Index (BMI) 32.2 Finger Stick Blood Glucose 159 Intake and Output for Last 24 Hours 12/12/18 12/13/18 12/14/18 23:59 23:59 23:59 Intake Total 1185 / 1185 260 / 260 680 / 680 Output Total 100 / 100 1999 Balance 1085 / 1085 -1740 / -1740 680 / 680 Laboratory Tests Past 24 Hrs 12/14/18 06:00 Hgb 9.9 L Hct 30.6 L POC Glucose 12/14/18 12/14/18 12/13/18 11:31 06:45 20:09 POC Glucose 175 H 118 H 144 H 12/13/18 16:32 POC Glucose 167 H Medical Necessity - Tobacco Use Smoking Status: Never smoker Tobacco Use: Non-smoker Assessment/Plan All Active Problems (Last Reviewed 11/30/18 @ 02:27 by Pete Ramirez DO) JOSE (acute kidney injury) (Acute) GI bleed (Acute) GI bleed (Acute) Acute coronary syndrome (Acute) Non-STEMI (non-ST elevated myocardial infarction) (Acute) Hypercholesterolemia (Acute) Congestive heart failure of unknown etiology (Acute) Abnormal EKG (Acute) 1. 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 HD TTS. 2. ACS s/p stent LAD, on plavix, cardiology following 3. DM2 primary service mgmt 4. HTN stable 5. Anemia, GI bleed. Continue ESTEPHANIE therapy on dialysis. prbc as needed. hgb stable DW pt, pt spouse at bedside
--- NOTE | 2018-12-14 13:18 | CASEMGMT ---
Per Yimi HOBSON, pt got precert for [facility]. Call to [facility] to notify them that pt should be leaving [facility] today and that she will come for 1st OP dialysis tomorrow at 1140, Jennifer at [facility] voices understanding. Julio César BELTRAN CM
--- NOTE | 2018-12-14 13:40 | PCM.EXTCARCO ---
- Diet 11/30/18 18:04 Diet: Renal - Carb-Controlled Is pt able to select menu?: Yes - Routine Orders/Code Status Suppository Type: Dulcolax 10mg Suppository Frequency: Daily PRN Routine Lab Work: CBC - 3 days, BMP - 3 days Code Status: Full Code - Wound(s) L buttock Wound Type: Pressure Injury R outer calf Wound Type: open surgical wound s/p debridement Dressing Change: AntiMicrobial (Aquacel AG, etc) R groin Wound Type: Puncture RIGHT NECK Wound Type: Surgical Incision RIGHT UPPER CHEST - HD CATH SITE Wound Type: Surgical Incision RIGHT LOWER LEG Wound Type: Surgical Incision BD FOLDS Wound Type: REDNESS.EXCORIATION right medial lower leg Wound Type: discoloration Dressing Change: Dry Sterile Dressing left lateral lower leg Wound Type: discoloration Dressing Change: Dry Sterile Dressing left medial lower leg Wound Type: bulla Dressing Change: Adaptic - Therapies Physical Therapy: Eval and Treat Occupational Therapy: Eval and Treat - Problem/Diagnosis (1) GI bleed Status: Acute Current Visit: Yes (2) JOSE (acute kidney injury) Status: Acute Current Visit: Yes (3) Cellulitis Status: Acute Current Visit: Yes (4) Anemia Status: Acute Current Visit: Yes (5) Thrombocytopenia Status: Acute Current Visit: Yes (6) ESRD (end stage renal disease) Status: Chronic Current Visit: Yes (7) Diabetes Status: Chronic Current Visit: Yes (8) Cirrhosis Status: Chronic Current Visit: Yes (9) Debility Status: Chronic Current Visit: Yes (10) Hypercholesterolemia Status: Chronic Current Visit: No (11) History of left heart catheterization Status: Chronic Comment: PROX LAD: 75 % Stenosis; MID LAD: 85 % Stenosis; DIAGONAL 2: Proximal - Moderate luminal irregularities up to 50%; CIRCUMFLEX ARTERY: is occluded; RIGHT CORONARY ARTERY: Moderate calcification; PROX RCA: Mild luminal irregularities less than 30%; RT PLV: 75 % Stenosis; RT PDA: Mid - 75 % Stenosis (per [facility] Dr. Motta @ [facility] 11/16/2018) Current Visit: No (12) Hypertension Status: Chronic Current Visit: No (13) Stented coronary artery Status: Chronic Comment: Successful PCI with PTCA to the proximal 1/2 of small, calcified DIAG#2 with a 1.5 x 8 balloon; 85%-->30%, no dissection. Successful PTCA/ULISES mid LAD with a 2.25 x 12 Promus Synergy; 85%-->0%, no dissection. Successful PTCA/ULISES proximal LAD with a 3.0 x 12 Promus Synergy; 75%-->0%, no dissection per DJN @ [facility] (to have elective PCI of proximal PL branch in 4 to 6 weeks). Current Visit: No - Allergies/Procedures Done in Hospital Allergies/Adverse Reactions: Allergies atorvastatin [From Lipitor] Adverse Reaction (Severe, Verified 11/29/18 23:05) Myalgias codeine Adverse Reaction (Verified 11/29/18 23:05) Hives pain medications Adverse Reaction (Intermediate, Uncoded 11/29/18 23:05) nausea/vomiting Procedures: None - Type of Care/Length of Stay Estimated LOS: Convalescent Care Less Than 30 days Type of Care Needed: Skilled Rehab Potential: Fair Prognosis: Fair - Additional Orders/Day of Discharge Day of Discharge: 12/14/18 - Dietary and Speech Recommendations Dietitian Recommendations/Changes: Recommend diet change to CHO controlled, cardiac, low sodium w/ fluid restriction as indicated d/t dialysis tx. May benefit from 1 packet Cruz BID for wound healing. D/c-ed Nepro carb steady on medpass and added Glucerna shake 120 ml w/ medpass. Added Magic cup and Ensure pudding w/ lunch and dinner for poor PO intake. - Follow Up Care Primary Care Physician: Taylor Alvarenga MD [Primary Care Provider] - Please follow up with your Primary Care Physician in: 1-2 weeks Please Follow Up With: Darinel Lawrence MD When: Call to make an appointment to be seen when stabilized for fistula When: 1st outpatient dialysis, please be there at 11:00am for 1st visit Please Follow Up With: Irma Pearson DO When: as directed Please Follow Up With: Regan Andujar MD When: call for appointment Please Follow Up With: Forest Martinez MD - Wound care center When: 5 days
--- NOTE | 2018-12-14 13:44 | TREXTCA.CO_ITS ---
- Diet 11/30/18 18:04 Diet: Renal - Carb-Controlled Is pt able to select menu?: Yes - Routine Orders/Code Status Suppository Type: Dulcolax 10mg Suppository Frequency: Daily PRN Routine Lab Work: CBC - 3 days, BMP - 3 days Code Status: Full Code - Wound(s) L buttock Wound Type: Pressure Injury R outer calf Wound Type: open surgical wound s/p debridement Dressing Change: AntiMicrobial (Aquacel AG, etc) R groin Wound Type: Puncture RIGHT NECK Wound Type: Surgical Incision RIGHT UPPER CHEST - HD CATH SITE Wound Type: Surgical Incision RIGHT LOWER LEG Wound Type: Surgical Incision BD FOLDS Wound Type: REDNESS.EXCORIATION right medial lower leg Wound Type: discoloration Dressing Change: Dry Sterile Dressing left lateral lower leg Wound Type: discoloration Dressing Change: Dry Sterile Dressing left medial lower leg Wound Type: bulla Dressing Change: Adaptic - Therapies Physical Therapy: Eval and Treat Occupational Therapy: Eval and Treat - Problem/Diagnosis (1) GI bleed Status: Acute Current Visit: Yes (2) JOSE (acute kidney injury) Status: Acute Current Visit: Yes (3) Cellulitis Status: Acute Current Visit: Yes (4) Anemia Status: Acute Current Visit: Yes (5) Thrombocytopenia Status: Acute Current Visit: Yes (6) ESRD (end stage renal disease) Status: Chronic Current Visit: Yes (7) Diabetes Status: Chronic Current Visit: Yes (8) Cirrhosis Status: Chronic Current Visit: Yes (9) Debility Status: Chronic Current Visit: Yes (10) Hypercholesterolemia Status: Chronic Current Visit: No (11) History of left heart catheterization Status: Chronic Comment: PROX LAD: 75 % Stenosis; MID LAD: 85 % Stenosis; DIAGONAL 2: Proximal - Moderate luminal irregularities up to 50%; CIRCUMFLEX ARTERY: is occluded; RIGHT CORONARY ARTERY: Moderate calcification; PROX RCA: Mild luminal irregularities less than 30%; RT PLV: 75 % Stenosis; RT PDA: Mid - 75 % Stenosis (per [facility] Dr. Motta @ [facility] 11/16/2018) Current Visit: No (12) Hypertension Status: Chronic Current Visit: No (13) Stented coronary artery Status: Chronic Comment: Successful PCI with PTCA to the proximal 1/2 of small, calcified DIAG#2 with a 1.5 x 8 balloon; 85%-->30%, no dissection. Successful PTCA/ULISES mid LAD with a 2.25 x 12 Promus Synergy; 85%-->0%, no dissection. Successful PTCA/ULISES proximal LAD with a 3.0 x 12 Promus Synergy; 75%-->0%, no dissection per DJN @ [facility] (to have elective PCI of proximal PL branch in 4 to 6 weeks). Current Visit: No - Allergies/Procedures Done in Hospital Allergies/Adverse Reactions: Allergies atorvastatin [From Lipitor] Adverse Reaction (Severe, Verified 11/29/18 23:05) Myalgias codeine Adverse Reaction (Verified 11/29/18 23:05) Hives pain medications Adverse Reaction (Intermediate, Uncoded 11/29/18 23:05) nausea/vomiting Procedures: None - Type of Care/Length of Stay Estimated LOS: Convalescent Care Less Than 30 days Type of Care Needed: Skilled Rehab Potential: Fair Prognosis: Fair - Additional Orders/Day of Discharge Day of Discharge: 12/14/18 - Dietary and Speech Recommendations Dietitian Recommendations/Changes: Recommend diet change to CHO controlled, cardiac, low sodium w/ fluid restriction as indicated d/t dialysis tx. May benefit from 1 packet Cruz BID for wound healing. D/c-ed Nepro carb steady on medpass and added Glucerna shake 120 ml w/ medpass. Added Magic cup and Ensure pudding w/ lunch and dinner for poor PO intake. - Follow Up Care Primary Care Physician: Taylor Alvarenga MD [Primary Care Provider] - Please follow up with your Primary Care Physician in: 1-2 weeks Please Follow Up With: Darinel Lawrence MD When: Call to make an appointment to be seen when stabilized for fistula When: 1st outpatient dialysis, please be there at 11:00am for 1st visit Please Follow Up With: Irma Pearson DO When: as directed Please Follow Up With: Regan Andujar MD When: call for appointment Please Follow Up With: Forest Martinez MD - Wound care center When: 5 days
--- NOTE | 2018-12-14 13:47 | PCM.DC.SUM ---
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 Successful PTCA/ULISES mid LAD with a 2.25 x 12 Promus Synergy; 85%-->0%, no dissection. Successful PTCA/ULISES proximal LAD with a 3.0 x 12 Promus Synergy; 75%-->0%, no dissection per JA @ [facility] (to have elective PCI of proximal PL branch in 4 to 6 weeks). 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 Motta @ [facility] 11/16/2018) History of left heart catheterization (Chronic 11/16/18) PROX LAD: 75 % Stenosis; MID LAD: 85 % Stenosis; DIAGONAL 2: Proximal - Moderate luminal irregularities up to 50%; CIRCUMFLEX ARTERY: is occluded; RIGHT CORONARY ARTERY: Moderate calcification; PROX RCA: Mild luminal irregularities less than 30%; RT PLV: 75 % Stenosis; RT PDA: Mid - 75 % Stenosis (per [facility] Dr. Motta @ [facility] 11/16/2018) Hypertension (Chronic) Hypercholesterolemia (Chronic) Hospital Course and Treatment Imaging Results: RAD/Chest 1 View (Portable) IMPRESSION: Decreased lung volumes since previous exam. Mild atelectasis or infiltrate in the lung bases but improved since prior exam. MOE study Interpretation Summary Unable to calculate bilateral lower extremity ankle brachial indices secondary to non-compressible vessels. Doppler waveforms are triphasic bilaterally suggesting no evidence for critical ischemia. Digital indices are artifically elevated RAD/Chest 1 View (Portable) IMPRESSION: Dialysis catheter terminates in the right atrium without pneumothorax. Overall improved appearance of the lungs since previous study. Saphenous Vein mapping: Interpretation Summary Superficial thrombophlebitis right cephalic vein mid forearm to mid upper arm Patent and compressible right upper arm basilic vein Diminutive left cephalic vein Patent and compressible left upper arm basilic vein Small bilateral radial arteries Adequate bilateral brachial arteries. Venous Doppler LLE Interpretation Summary There is no evidence of left lower extremity deep vein thrombosis. Left greater saphenous vein appears patent and compressible segmentally. Pathology report: GROSS DESCRIPTION Received in fixative is one container labeled with the patient's name and designated infected necrotic right leg. The specimen consists of an irregular fragment of necrotic dark negron-pink soft tissue measuring 6.5 x 2.5 x 0.6 cm. The cutaneous surface has a dusky klein color. Serial sections do not reveal mass lesions. Research And Evaluation Manager sections are submitted in two cassettes. / AM:chica 12/08/18 TC:2 CPT: [id number] Consultations 11/30/18 03:16 Consult: Onc/Wound/seed cleaner Routine Comment: Operations: cholecystecomy - with liver biopsy Procedures: None Summary of Care Provided: Hospital Course: The patient is a 78 year old F with pmhx as above who presented to the ER with c/o malaise weakness and bright red blood per rectum. She had recently been discharged from the hospital after being treated for NSTEMI and having a stent placed to the LAD. She was started on aspirin and plavix. She had hemorrhoidal bleeding, and unfortunately aspirin and plavix could not be stopped due to the recent stent - fortunately the bleeding resolved on its own. Her Hgb was initially 10. She appeared to be in JOSE. She was admitted, with cardiology and nephrology consulted initially. Her renal function did not recover, and Dr. Lawrence (vascular) was consulted for dialysis catheter placement. She was started on dialysis per Dr. Pearson and will continue this permanently now. Several medications were discontinued 2/2 low BP with dialysis. She was started on midodrine for dialysis days. Her insulin was also slightly decreased as she had hypoglycemia. She was also noted to have mottling of her LEs with wound formation on the right LE. Wound care was consulted and an arterial study was performed - arterial study was negative. General surgery was consulted. She was started on cefazolin. The wound appeared to be a necrotic cluster and she was taken to surgery by Dr. Martinez on 12/07/2018. Wound care was provided. Tissue sample with results as noted above. SWETA grew from the wound and she was placed on Clindamycin which she will continue until 5 full days of therapy are complete. She could not have a wound vac as the surrounding skin was of poor quality. There was also a less severe wound on the left leg that wound care is treating conservatively. She will continue wound care with Dr. Martinez in the wound care center for her wounds. Also of note, while here, she had elevated troponins, however this was attributed to her recent NSTEMI. She struggled with anemia and thrombocytopenia while here. Her thrombocytopenia recovered spontaneously with treatment of her underlying conditions, and was felt to be related to multiple factors including use of azathioprine, liver dz, bleeding, ESRD, asprin/plavix, and antibiotics. This will need monitored. She periodically needed transfusions during her stay - received a total of 3 units during her stay. This will need followed as an outpatient. Additionally, she became severely lethargic with oxycodone, and was switched to tramadol which was somewhat better tolerated. She remained very weak during her stay. SNF was recommended and the family was agreeable. On the day of discharge palliative care was brought up by nephrology given her lethargy, weakness, and worsening chronic medical conditions. She and her were not interested. She was discharged to SNF in stable condition. She will follow up with Dr. Pearson for dialysis, Dr. Lawrence regarding permanent cath placement, Dr. Martinez regarding her wounds, and Dr. Andujar regarding her ongoing cardiac care. This patient was seen by Phil Villa PA-C under the supervision of Doctor Clint. [] - Physical Exam General: Alert, Oriented x3, Cooperative HEENT: Atraumatic, PERRLA, EOMI, Normocephalic Neck: Supple, No JVD, Negative Carotid Bruits Lungs: Clear to auscultation, Normal air movement Cardiovascular: Regular rate, No murmurs Abdomen: Bowel Sounds Present, Soft, Non Tender Extremities: No edema, Capillary Refill Less than 3 Seconds Skin: No rashes, No breakdown Musculoskeletal: No Tenderness to Palpation of Joints or Extremities, - - RLE dressed appropriately Neurological: Cranial nerves II-XII grossly intact Psych/Mental Status: Normal Affect, Appropriate, Alert and oriented to time, place, person, mood and affect Vital Signs Temp Pulse Resp BP Pulse Ox 98.1 F 94 19 H 156/69 H 92 12/14/18 08:37 12/14/18 10:59 12/14/18 08:37 12/14/18 08:37 12/14/18 08:37 Oxygen Flow Rate (L/min) 2 Oxygen Delivery Method Room Air Weight: 194 lb 10.691 oz Body Mass Index (BMI) 32.2 Finger Stick Blood Glucose 159 Intake and Output for Last 24 Hours 12/12/18 12/13/18 12/14/18 23:59 23:59 23:59 Intake Total 1185 / 1185 260 / 260 680 / 680 Output Total 100 / 100 1999 / 1999 Balance 1085 / 1085 -1740 / -1740 680 / 680 Laboratory Tests Past 24 Hrs 12/14/18 06:00 Hgb 9.9 L Hct 30.6 L POC Glucose 12/14/18 12/14/18 12/13/18 11:31 06:45 20:09 POC Glucose 175 H 118 H 144 H 12/13/18 16:32 POC Glucose 167 H Discharge Diet: Renal Diet Discharge Activity: May Not Shower Call your doctor if your incision/area has: Continuous Slow Oozing, Sudden Increased Bleeding, Increased Pain/ Swelling, Increased Redness, Foul Smelling Discharge Call your doctor if you observe: Fever of 101 or Higher Additional Dressing/Incision Instructions:: Your catheter dressing changes will be performed by the dialysis staff. Please keep the dressings clean and dry Home Medications: Medications to take at Discharge Azathioprine [Imuran] 100 mg PO DAILY@0800 11/15/18 Aspirin [Aspirin, Baby] 81 mg PO DAILY@0800 #30 tab.chew 11/23/18 Nitroglycerin [Nitrostat] 0.4 mg SUBLINGUAL Q5M PRN #10 tablet 11/23/18 Pantoprazole Sodium [Protonix] 20 mg PO DAILY #30 tablet 11/23/18 Ranolazine [Ranexa] 500 mg PO BID #60 11/23/18 Clopidogrel Bisulfate [Plavix] 75 mg PO DAILY 11/30/18 Acetaminophen [Tylenol Tablet] 650 mg PO Q4H PRN PRN tablet 12/14/18 Clindamycin [Cleocin] 300 mg PO Q6 #7 capsule 12/14/18 Folic Acid/Vitamin B Comp W-C [Nephrocaps, Renaphro] 1 capsule PO DAILY capsule 12/14/18 Glucerna Shake 120 ml PO 4X/DAY liquid 12/14/18 Insulin Glargine [Lantus SoloStar Pen] 28 units SC BREAKFAST pen 12/14/18 Magnesium Hydroxide [Milk Of Magnesia] 30 ml PO DAILY PRN udc 12/14/18 Midodrine HCl [Proamatine] 10 mg PO TuThSa@0900 tablet 12/14/18 Nystatin Powder [Mycostatin Powder] 1 applic TOPICAL TID bottle 12/14/18 traMADol [Ultram] 50 mg PO Q6H PRN PRN 3 Days #12 tab 12/14/18 Following Prescrptions Were Given to Patient: Clindamycin [Cleocin] 300 mg PO Q6 #7 capsule traMADol [Ultram] 50 mg PO Q6H PRN PRN 3 Days #12 tab PRN Reason: Moderate Pain (4-5/10) Primary Care Physician: Taylor Alvarenga MD [Primary Care Provider] - Please follow up with your Primary Care Physician in: 1-2 weeks Please Follow Up With: Darinel Lawrence MD When: Call to make an appointment to be seen when stabilized for fistula When: 1st outpatient dialysis, please be there at 11:00am for 1st visit Please Follow Up With: Irma Pearson DO When: as directed Please Follow Up With: Regan Andujar MD When: call for appointment Please Follow Up With: Forest Martinez MD - Wound care center When: 5 days Disposition: [facility] facility Minutes spent on discharge:: 40 Medical Necessity - Tobacco Use Smoking Status: Never smoker Tobacco Use: Non-smoker Meaningful Use Info Meaningful Use Diagnoses (Choose all that apply): None applicable <Moon Jaramillo - Last Filed: 12/14/18 16:59> Discharge Date and Diagnosis - Secondary Discharge Diagnosis Chronic Problems (Last Reviewed 11/30/18 @ 02:27 by Pete Ramirez DO) ESRD (end stage renal disease) (Chronic) Diabetes (Chronic) Cirrhosis (Chronic) Debility (Chronic) Stented coronary artery (Chronic 11/22/18) Successful PCI with PTCA to the proximal 1/2 of small, calcified DIAG#2 with a 1.5 x 8 balloon; 85%-->30%, no dissection. Successful PTCA/ULISES mid LAD with a 2.25 x 12 Promus Synergy; 85%-->0%, no dissection. Successful PTCA/ULISES proximal LAD with a 3.0 x 12 Promus Synergy; 75%-->0%, no dissection per JA @ [facility] (to have elective PCI of proximal PL branch in 4 to 6 weeks). 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 Motta @ [facility] 11/16/2018) History of left heart catheterization (Chronic 11/16/18) PROX LAD: 75 % Stenosis; MID LAD: 85 % Stenosis; DIAGONAL 2: Proximal - Moderate luminal irregularities up to 50%; CIRCUMFLEX ARTERY: is occluded; RIGHT CORONARY ARTERY: Moderate calcification; PROX RCA: Mild luminal irregularities less than 30%; RT PLV: 75 % Stenosis; RT PDA: Mid - 75 % Stenosis (per [facility] Dr. Motta @ [facility] 11/16/2018) Hypertension (Chronic) Hypercholesterolemia (Chronic) Hospital Course and Treatment Consultations 11/30/18 03:16 Consult: Onc/Wound/seed cleaner Routine Comment: Summary of Care Provided: Patient seen by Phil Villa PA-C under my supervision The patient is a 78 year old F with an extensive past medical history as listed including a recent non-STEMI for which she had a cardiac cath with demonstration of dye. She was admitted through the ED with a complaint of generalized malaise and bright red blood per rectum. She was on aspirin and Plavix on account of having recently had a stent placed in her LAD. Bleeding was thought to be due to hemorrhoids and it subsequently resolved on its own. Patient also had AK I on CKD and renal function progressively worsened in another couple. She therefore had to be started on dialysis and had a dialysis catheter placed. She was started on dialysis and is to continue on it permanently as her kidney function did not recover and she is now in ESRD. She was also noted to have mottling of her lower extremities with wound formation on the right lower extremity and arterial study done was negative. General surgery was consulted and she was taken to surgery by plastic surgery. MRSA was grown from the wound and she was placed on clindamycin. 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 Patient stay was further complicated by thrombocytopenia which subsequently resolved and also received 3 units of packed red blood cells during his stay for anemia likely due to ESRD and rectal bleeding. Patient remained very weak and a functional capacity was very limited. He was also receptive to palliative care. [facility]. She is to follow-up with her primary care doctor, with nephrology, with plastic surgery and cardiology. Seen and examined prior to discharge. She still very weak and lethargic but had no complaints. Review of systems otherwise negative. Labs and vitals reviewed. Home medication reviewed and reconciled. o/e: Vital Signs Height 5 ft 2 in Weight: 194 lb 10.691 oz Weight in Pounds 194.7 lbs Pulse Ox 94 Temperature 98 F Pulse Rate 99 Respiratory Rate 18 Blood Pressure [BP] 151/75 Blood Pressure 156/73 Blood Pressure Position [BP] Semi-Fowlers Blood Pressure Position Semi-Fowlers [] General: Alert, Oriented x3, Cooperative-lethargic HEENT: Atraumatic, PERRLA, EOMI, Normocephalic Neck: Supple, No JVD, Negative Carotid Bruits Lungs: Clear to auscultation, Normal air movement Cardiovascular: Regular rate, No murmurs Abdomen: Bowel Sounds Present, Soft, Non Tender Extremities: No edema, Capillary Refill Less than 3 Seconds Skin: No rashes, No breakdown Musculoskeletal: No Tenderness to Palpation of Joints or Extremities, RLE dressed in clean bandage Neurological: Cranial nerves II-XII grossly intact Psych/Mental Status: Normal Affect, Appropriate, Alert and oriented to time, place, person, mood and affect Plan as above. Rest of management as per Phil Villa PA-C's note, which I have reviewed and agree with. - Physical Exam Vital Signs Temp Pulse Resp BP Pulse Ox 98 F 99 18 156/73 H 94 12/14/18 15:42 12/14/18 15:42 12/14/18 15:42 12/14/18 15:42 12/14/18 15:42 Oxygen Flow Rate (L/min) 2 Oxygen Delivery Method Room Air Weight: 194 lb 10.691 oz Body Mass Index (BMI) 32.2 Finger Stick Blood Glucose 159 Intake and Output for Last 24 Hours 12/12/18 12/13/18 12/14/18 23:59 23:59 23:59 Intake Total 1185 / 1185 260 / 260 680 / 680 Output Total 100 / 100 1999 / 1999 Balance 1085 / 1085 -1740 / -1740 680 / 680 Laboratory Tests Past 24 Hrs 12/14/18 06:00 Hgb 9.9 L Hct 30.6 L POC Glucose 12/14/18 12/14/18 12/13/18 11:31 06:45 20:09 POC Glucose 175 H 118 H 144 H Discharge Activity: May Not Shower Patient Condition:: Fair Code Visit Inpatient E&M: [id number] Disch Hosp
--- NOTE | 2018-12-14 13:48 | CASEMGMT ---
Addendum entered by Ludmila Romero 12/14/18 14:13: Called [facility] and arranged for patient to get picked up at 4p via cot. Notified RN who notified patient and her . SW also notified workers compensation legal secretary and Katina at [facility]. Ludmila SANDOVAL Original Note: SW received a call from Katina at [facility] and she received insurance authorization for patient to come today. She also got dialysis set up for all of three days. let physician, RN, patient, and her know this information. Plan: [facility] under skilled level of care on a PASRR as patient will likely need more than 30 days. Ludmila SANDOVAL
--- NOTE | 2018-12-14 13:51 | DS.PCM_ITS ---
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 Successful PTCA/ULISES mid LAD with a 2.25 x 12 Promus Synergy; 85%-->0%, no dissection. Successful PTCA/ULISES proximal LAD with a 3.0 x 12 Promus Synergy; 75%-->0%, no dissection per JA @ [facility] (to have elective PCI of proximal PL branch in 4 to 6 weeks). 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 Motta @ [facility] 11/16/2018) History of left heart catheterization (Chronic 11/16/18) PROX LAD: 75 % Stenosis; MID LAD: 85 % Stenosis; DIAGONAL 2: Proximal - Moderate luminal irregularities up to 50%; CIRCUMFLEX ARTERY: is occluded; RIGHT CORONARY ARTERY: Moderate calcification; PROX RCA: Mild luminal irregularities less than 30%; RT PLV: 75 % Stenosis; RT PDA: Mid - 75 % Stenosis (per [facility] Dr. Motta @ [facility] 11/16/2018) Hypertension (Chronic) Hypercholesterolemia (Chronic) Hospital Course and Treatment Imaging Results: RAD/Chest 1 View (Portable) IMPRESSION: Decreased lung volumes since previous exam. Mild atelectasis or infiltrate in the lung bases but improved since prior exam. MOE study Interpretation Summary Unable to calculate bilateral lower extremity ankle brachial indices secondary to non-compressible vessels. Doppler waveforms are triphasic bilaterally suggesting no evidence for critical ischemia. Digital indices are artifically elevated RAD/Chest 1 View (Portable) IMPRESSION: Dialysis catheter terminates in the right atrium without pneumothorax. Overall improved appearance of the lungs since previous study. Saphenous Vein mapping: Interpretation Summary Superficial thrombophlebitis right cephalic vein mid forearm to mid upper arm Patent and compressible right upper arm basilic vein Diminutive left cephalic vein Patent and compressible left upper arm basilic vein Small bilateral radial arteries Adequate bilateral brachial arteries. Venous Doppler LLE Interpretation Summary There is no evidence of left lower extremity deep vein thrombosis. Left greater saphenous vein appears patent and compressible segmentally. Pathology report: GROSS DESCRIPTION Received in fixative is one container labeled with the patient's name and designated infected necrotic right leg. The specimen consists of an irregular fragment of necrotic dark negron-pink soft tissue measuring 6.5 x 2.5 x 0.6 cm. The cutaneous surface has a dusky klein color. Serial sections do not reveal mass lesions. Imaging Assistant sections are submitted in two cassettes. / AM:chica 12/08/18 TC:2 CPT: [id number] Consultations 11/30/18 03:16 Consult: Onc/Wound/hoop bending machine operator Routine Comment: Operations: cholecystecomy - with liver biopsy Procedures: None Summary of Care Provided: Hospital Course: The patient is a 78 year old F with pmhx as above who presented to the ER with c/o malaise weakness and bright red blood per rectum. She had recently been discharged from the hospital after being treated for NSTEMI and having a stent placed to the LAD. She was started on aspirin and plavix. She had hemorrhoidal bleeding, and unfortunately aspirin and plavix could not be stopped due to the recent stent - fortunately the bleeding resolved on its own. Her Hgb was initially 10. She appeared to be in JOSE. She was admitted, with cardiology and nephrology consulted initially. Her renal function did not recover, and Dr. Lawrence (vascular) was consulted for dialysis catheter placement. She was started on dialysis per Dr. Pearson and will continue this permanently now. Several medica tions were discontinued 2/2 low BP with dialysis. She was started on midodrine for dialysis days. Her insulin was also slightly decreased as she had hypoglycemia. She was also noted to have mottling of her LEs with wound formation on the right LE. Wound care was consulted and an arterial study was performed - arterial study was negative. General surgery was consulted. She was started on cefazolin. The wound appeared to be a necrotic cluster and she was taken to surgery by Dr. Martinez on 12/07/2018. Wound care was provided. Tissue sample with results as noted above. SWETA grew from the wound and she was placed on Clindamycin which she will continue until 5 full days of therapy are complete. She could not have a wound vac as the surrounding skin was of poor quality. There was also a less severe wound on the left leg that wound care is treating conservatively. She will continue wound care with Dr. Martinez in the wound care center for her wounds. Also of note, while here, she had elevated troponins, however this was attributed to her recent NSTEMI. She struggled with anemia and thrombocytopenia while here. Her thrombocytopenia recovered spontaneously with treatment of her underlying conditions, and was felt to be related to multiple factors including use of azathioprine, liver dz, bleeding, ESRD, asprin/plavix, and antibiotics. This will need monitored. She periodically needed transfusions during her stay - received a total of 3 units during her stay. This will need followed as an outpatient. Additionally, she became severely lethargic with oxycodone, and was switched to tramadol which was somewhat better tolerated. She remained very weak during her stay. SNF was recommended and the family was agreeable. On the day of discharge palliative care was brought up by nephrology given her lethargy, weakness, and worsening chronic medical conditions. She and her were not interested. She was discharged to SNF in stable condition. She will follow up with Dr. Pearson for dialysis, Dr. Lawrence regarding permanent cath placement, Dr. Martinez regarding her wounds, and Dr. Andujar regarding her ongoing cardiac care. This patient was seen by Phil Villa PA-C under the supervision of Doctor Jaramillo. [] - Physical Exam General: Alert, Oriented x3, Cooperative HEENT: Atraumatic, PERRLA, EOMI, Normocephalic Neck: Supple, No JVD, Negative Carotid Bruits Lungs: Clear to auscultation, Normal air movement Cardiovascular: Regular rate, No murmurs Abdomen: Bowel Sounds Present, Soft, Non Tender Extremities: No edema, Capillary Refill Less than 3 Seconds Skin: No rashes, No breakdown Musculoskeletal: No Tenderness to Palpation of Joints or Extremities, - - RLE dressed appropriately Neurological: Cranial nerves II-XII grossly intact Psych/Mental Status: Normal Affect, Appropriate, Alert and oriented to time, place, person, mood and affect Vital Signs Temp Pulse Resp BP Pulse Ox 98.1 F 94 19 H 156/69 H 92 12/14/18 08:37 12/14/18 10:59 12/14/18 08:37 12/14/18 08:37 12/14/18 08:37 Oxygen Flow Rate (L/min) 2 Oxygen Delivery Method Room Air Weight: 194 lb 10.691 oz Body Mass Index (BMI) 32.2 Finger Stick Blood Glucose 159 Intake and Output for Last 24 Hours 12/12/18 12/13/18 12/14/18 23:59 23:59 23:59 Intake Total 1185 / 1185 260 / 260 680 / 680 Output Total 100 / 100 1999 / 1999 Balance 1085 / 1085 -1740 / -1740 680 / 680 Laboratory Tests Past 24 Hrs 12/14/18 06:00 Hgb 9.9 L Hct 30.6 L POC Glucose 12/14/18 12/14/18 12/13/18 11:31 06:45 20:09 POC Glucose 175 H 118 H 144 H 12/13/18 16:32 POC Glucose 167 H Discharge Diet: Renal Diet Discharge Activity: May Not Shower Call your doctor if your incision/area has: Continuous Slow Oozing, Sudden Increased Bleeding, Increased Pain/ Swelling, Increased Redness, Foul Smelling Discharge Call your doctor if you observe: Fever of 101 or Higher Additional Dressing/Incision Instructions:: Your catheter dressing changes will be performed by the dialysis staff. Please keep the dressings clean and dry Home Medications: Medications to take at Discharge Azathioprine [Imuran] 100 mg PO DAILY@0800 11/15/18 Aspirin [Aspirin, Baby] 81 mg PO DAILY@0800 #30 tab.chew 11/23/18 Nitroglycerin [Nitrostat] 0.4 mg SUBLINGUAL Q5M PRN #10 tablet 11/23/18 Pantoprazole Sodium [Protonix] 20 mg PO DAILY #30 tablet 11/23/18 Ranolazine [Ranexa] 500 mg PO BID #60 11/23/18 Clopidogrel Bisulfate [Plavix] 75 mg PO DAILY 11/30/18 Acetaminophen [Tylenol Tablet] 650 mg PO Q4H PRN PRN tablet 12/14/18 Clindamycin [Cleocin] 300 mg PO Q6 #7 capsule 12/14/18 Folic Acid/Vitamin B Comp W-C [Nephrocaps, Renaphro] 1 capsule PO DAILY capsule 12/14/18 Glucerna Shake 120 ml PO 4X/DAY liquid 12/14/18 Insulin Glargine [Lantus SoloStar Pen] 28 units SC BREAKFAST pen 12/14/18 Magnesium Hydroxide [Milk Of Magnesia] 30 ml PO DAILY PRN udc 12/14/18 Midodrine HCl [Proamatine] 10 mg PO TuThSa@0900 tablet 12/14/18 Nystatin Powder [Mycostatin Powder] 1 applic TOPICAL TID bottle 12/14/18 traMADol [Ultram] 50 mg PO Q6H PRN PRN 3 Days #12 tab 12/14/18 Following Prescrptions Were Given to Patient: Clindamycin [Cleocin] 300 mg PO Q6 #7 capsule traMADol [Ultram] 50 mg PO Q6H PRN PRN 3 Days #12 tab PRN Reason: Moderate Pain (4-5/10) Primary Care Physician: Taylor Alvarenga MD [Primary Care Provider] - Please follow up with your Primary Care Physician in: 1-2 weeks Please Follow Up With: Darinel Lawrence MD When: Call to make an appointment to be seen when stabilized for fistula When: 1st outpatient dialysis, please be there at 11:00am for 1st visit Please Follow Up With: Irma Pearson DO When: as directed Please Follow Up With: Regan Andujar MD When: call for appointment Please Follow Up With: Forest Martinez MD - Wound care center When: 5 days Disposition: Correction facility Minutes spent on discharge:: 40 Medical Necessity - Tobacco Use Smoking Status: Never smoker Tobacco Use: Non-smoker Meaningful Use Info Meaningful Use Diagnoses (Choose all that apply): None applicable <Moon Jaramillo - Last Filed: 12/14/18 16:59> Discharge Date and Diagnosis - Secondary Discharge Diagnosis Chronic Problems (Last Reviewed 11/30/18 @ 02:27 by Pete Ramirez DO) ESRD (end stage renal disease) (Chronic) Diabetes (Chronic) Cirrhosis (Chronic) Debility (Chronic) Stented coronary artery (Chronic 11/22/18) Successful PCI with PTCA to the proximal 1/2 of small, calcified DIAG#2 with a 1.5 x 8 balloon; 85%-->30%, no dissection. Successful PTCA/ULISES mid LAD with a 2.25 x 12 Promus Synergy; 85%-->0%, no dissection. Successful PTCA/ULISES proximal LAD with a 3.0 x 12 Promus Synergy; 75%-->0%, no dissection per JA @ [facility] (to have elective PCI of proximal PL branch in 4 to 6 weeks). 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 Motta @ [facility] 11/16/2018) History of left heart catheterization (Chronic 11/16/18) PROX LAD: 75 % Stenosis; MID LAD: 85 % Stenosis; DIAGONAL 2: Proximal - Moderate luminal irregularities up to 50%; CIRCUMFLEX ARTERY: is occluded; RIGHT CORONARY ARTERY: Moderate calcification; PROX RCA: Mild luminal irregularities less than 30%; RT PLV: 75 % Stenosis; RT PDA: Mid - 75 % Stenosis (per [facility] Dr. Motta @ [facility] 11/16/2018) Hypertension (Chronic) Hypercholesterolemia (Chronic) Hospital Course and Treatment Consultations 11/30/18 03:16 Consult: Onc/Wound/hoop bending machine operator Routine Comment: Summary of Care Provided: Patient seen by Phil Villa PA-C under my supervision The patient is a 78 year old F with an extensive past medical history as listed including a recent non-STEMI for which she had a cardiac cath with demonstration of dye. She was admitted through the ED with a complaint of generalized malaise and bright red blood per rectum. She was on aspirin and Plavix on account of having recently had a stent placed in her LAD. Bleeding was thought to be due to hemorrhoids and it subsequently resolved on its own. Patient also had AK I on CKD and renal function progressively worsened in another couple. She t herefore had to be started on dialysis and had a dialysis catheter placed. She was started on dialysis and is to continue on it permanently as her kidney function did not recover and she is now in ESRD. She was also noted to have mottling of her lower extremities with wound formation on the right lower extremity and arterial study done was negative. General surgery was consulted and she was taken to surgery by plastic surgery. MRSA was grown from the wound and she was placed on clindamycin. 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 Patient stay was further complicated by thrombocytopenia which subsequently resolved and also received 3 units of packed red blood cells during his stay for anemia likely due to ESRD and rectal bleeding. Patient remained very weak and a functional capacity was very limited. He was also receptive to palliative care. He was discharged to snf facility on 12/14/2018. She is to follow-up with her primary care doctor, with nephrology, with plastic surgery and cardiology. Seen and examined prior to discharge. She still very weak and lethargic but had no complaints. Review of systems otherwise negative. Labs and vitals reviewed. Home medication reviewed and reconciled. o/e: Vital Signs Height 5 ft 2 in Weight: 194 lb 10.691 oz Weight in Pounds 194.7 lbs Pulse Ox 94 Temperature 98 F Pulse Rate 99 Respiratory Rate 18 Blood Pressure [BP] 151/75 Blood Pressure 156/73 Blood Pressure Position [BP] Semi-Fowlers Blood Pressure Position Semi-Fowlers [] General: Alert, Oriented x3, Cooperative-lethargic HEENT: Atraumatic, PERRLA, EOMI, Normocephalic Neck: Supple, No JVD, Negative Carotid Bruits Lungs: Clear to auscultation, Normal air movement Cardiovascular: Regular rate, No murmurs Abdomen: Bowel Sounds Present, Soft, Non Tender Extremities: No edema, Capillary Refill Less than 3 Seconds Skin: No rashes, No breakdown Musculoskeletal: No Tenderness to Palpation of Joints or Extremities, RLE dressed in clean bandage Neurological: Cranial nerves II-XII grossly intact Psych/Mental Status: Normal Affect, Appropriate, Alert and oriented to time, place, person, mood and affect Plan as above. Rest of management as per Phil Villa PA-C's note, which I have reviewed and agree with. - Physical Exam Vital Signs Temp Pulse Resp BP Pulse Ox 98 F 99 18 156/73 H 94 12/14/18 15:42 12/14/18 15:42 12/14/18 15:42 12/14/18 15:42 12/14/18 15:42 Oxygen Flow Rate (L/min) 2 Oxygen Delivery Method Room Air Weight: 194 lb 10.691 oz Body Mass Index (BMI) 32.2 Finger Stick Blood Glucose 159 Intake and Output for Last 24 Hours 12/12/18 12/13/18 12/14/18 23:59 23:59 23:59 Intake Total 1185 / 1185 260 / 260 680 / 680 Output Total 100 / 100 1999 / 1999 Balance 1085 / 1085 -1740 / -1740 680 / 680 Laboratory Tests Past 24 Hrs 12/14/18 06:00 Hgb 9.9 L Hct 30.6 L POC Glucose 12/14/18 12/14/18 12/13/18 11:31 06:45 20:09 POC Glucose 175 H 118 H 144 H Discharge Activity: May Not Shower Patient Condition:: Fair Code Visit Inpatient E&M: 16403 Disch Hosp
--- NOTE | 2018-12-14 14:20 | NURSING ---
Updated pt/family that transport would be here at 1600
[2018-12-14] MEDS: Acetaminophen 325 MG Tablet 650 MG PO (14:30)
--- NOTE | 2018-12-14 15:39 | NURSING ---
Report called to ROSALIND Dubose @ this time.
== END 2018-12-14 16:07 | disposition skilled nursing facility (03) | DRG 673 ==
LOC: ED 23:30 → PCU 11-30 02:08
PROVIDERS: Anesthesiology; Internal Medicine; Internal Medicine Nephrology; Nurse Practitioner Family; Physician Assistant; Surgery; Emergency Provider Emergency Medicine; Family Provider Family Medicine; PCP Family Medicine; Visit Provider Student in an Organized Health Care Education/Training Program
PROC: 0JH63XZ Insertion of Tunneled Vascular Access Device into Chest Subcutaneous Tissue and Fascia, Percutaneous Approach (ICD-10-PCS; principal; 2018-11-30 15:45)
PROC: 0JBN0ZZ Excision of Right Lower Leg Subcutaneous Tissue and Fascia, Open Approach (ICD-10-PCS; principal; 2018-12-07 13:50)
DX: N17.9 Acute kidney failure, unspecified (principal); I21.4 Non-ST elevation (NSTEMI) myocardial infarction; E87.2 Acidosis; D62 Acute posthemorrhagic anemia; L03.115 Cellulitis of right lower limb; I13.2 Hypertensive heart and chronic kidney disease with heart failure and with stage 5 chronic kidney disease, or end stage renal disease; I50.32 Chronic diastolic (congestive) heart failure; E44.0 Moderate protein-calorie malnutrition; N18.6 End stage renal disease; I25.10 Atherosclerotic heart disease of native coronary artery without angina pectoris; K64.4 Residual hemorrhoidal skin tags; S80.11XA Contusion of right lower leg, initial encounter; E83.59 Other disorders of calcium metabolism; K75.4 Autoimmune hepatitis; X58.XXXA Exposure to other specified factors, initial encounter; D69.6 Thrombocytopenia, unspecified; E11.22 Type 2 diabetes mellitus with diabetic chronic kidney disease; E78.5 Hyperlipidemia, unspecified; Z68.32 Body mass index [BMI] 32.0-32.9, adult; Z95.5 Presence of coronary angioplasty implant and graft; Z79.02 Long term (current) use of antithrombotics/antiplatelets; Z79.4 Long term (current) use of insulin; I95.3 Hypotension of hemodialysis
CPT/HCPCS: 36415; 51702; 71045; 76000; 80048; 80053; 80069; 81001; 82728; 82962; 83036; 83540; 83735; 83880; 84100; 84134; 84484; 85014; 85018; 85025; 85027; 85610; 85730; 86644; 86704; 86706; 86850; 86900; 86920; 86922; 87015; 87070; 87075; 87077; 87102; 87116; 87186; 87205; 87206; 87340; 88305; 90937; 93005; 93922; 93970; 93971; 97110; 97161; 97166; 97530; 97535; 97802; 97803; 99285; J0885; J7030; J7040; P9016; P9047; A4216; C1750; G0257; J2405

== ENCOUNTER 2018-12-19 10:15 | Outpatient (RCR) | payer MEDICARE, SELFPAY ==
[2018-12-07 02:31] VITALS: BMI 32.2
[2018-12-19 10:48] VITALS: BP 163/73; PULSE 109; RESP 20; TEMP 35.7; BMI 32.2
--- NOTE | 2018-12-19 13:13 | PCM.WC.PN ---
Type of Wound Date of Service: 12/19/18 Chief Complaint: Open infected surgical wound right lateral leg and bruised compromised skin left lateral leg. 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 Wound culture - Silver. Operative culture - MRSE. She was placed on Cleocin. Prealbumin from 12/06 18 was 10.2. Encourage nutritional supplementation with protein to help the healing process. LEAS from 11/30/18 showed doppler waveforms are triphasic bilaterally suggesting no evidence for critical ischemia.. Since the surgery, she has developed more areas of bruising surrounding the right lateral leg wound and left lateral leg area. She has ESRD and is on dialysis on Wednesday, , and Wednesday. Today the patient denies fever. Her appetite is ok. Progress of Wound: Recent surgery 12/07/18 with additional bruising on the right lateral leg and left lateral leg. - Physical Exam Vital Signs Temp Pulse Resp BP 96.2 F L 109 H 20 H 163/73 H 12/19/18 10:48 12/19/18 10:48 12/19/18 10:48 12/19/18 10:48 Wound Measurements and Assessment WC - Nurse 1 - General Ulcer Measurement Start: 12/19/18 10:47 Freq: Status: Active Protocol: Activity Type Activity Date Activity User E-Sign Co-Sign Detail Recorded Client Recorded Date Recorded By Document 12/19/18 10:48 RB [id number] 12/19/18 11:00 RB 12/19/18 10:48 Wound Center Nurse 1 [Ulcer Assessment] 3. L lateral LE -Combined with other wound No -Current Size (cm) - Length 1 -Current Size (cm) - Width 0.5 -Current Size (cm) - Depth 0.1 -Total Square Cm 0.5 -Photo Taken Yes -Tunneling No -Undermining/Tunneling No -Exudate Amt Medium -Exudate Type Serosanguineous -Wound Margin Distinct, Outline Attached -Granulation Amt Medium (34-66%) -Granulation Quality [place] Red -Slough/Fibrin Yes -Necrosis Amt Medium (34-66%) -Necrotic Tissue Type Adherent Slough -Structure Exposed N/A -Texture (Anitra-wound Skin Appearance) Assessed -Moisture (Anitra-wound Skin Appearance Weeping ) -Color (Anitra-wound Skin Appearance) Assessed -Temperature (Anitra-wound Skin No Abnormality Appearance) (Pt Warm) -Tenderness on Palpation (Anitra-wound No Skin Appearance) -Ulcer Cleansing Wound Cleanser -Foul Odor after Cleansing No -Anesthetic Used 4% Lidocaine Solution 2. R posterior LE -Combined with other wound No -Current Size (cm) - Length 3.1 -Current Size (cm) - Width 5 -Current Size (cm) - Depth 0.1 -Total Square Cm 15.5 -Photo Taken Yes -Tunneling No -Undermining/Tunneling No -Circular Undermining No -Exudate Amt Medium -Exudate Type Serosanguineous -Wound Margin Distinct, Outline Attached -Granulation Amt Medium (34-66%) -Granulation Quality [place] -Slough/Fibrin Yes -Necrosis Amt Small (1-33%) -Necrotic Tissue Type Adherent Slough -Structure Exposed N/A -Texture (Anitra-wound Skin Appearance) Assessed -Moisture (Anitra-wound Skin Appearance Assessed ) Weeping -Color (Anitra-wound Skin Appearance) Assessed -Temperature (Anitra-wound Skin No Abnormality Appearance) (Pt Warm) -Tenderness on Palpation (Anitra-wound No Skin Appearance) -Ulcer Cleansing Wound Cleanser -Foul Odor after Cleansing No -Anesthetic Used 4% Lidocaine Solution 1. R lateral LE -Combined with other wound No -Current Size (cm) - Length 13.4 -Current Size (cm) - Width 5.9 -Current Size (cm) - Depth 0.3 -Total Square Cm 79.06 -Photo Taken Yes -Tunneling No -Undermining/Tunneling No -Circular Undermining No -Exudate Amt Small -Exudate Type Serosanguineous -Wound Margin Distinct, Outline Attached -Granulation Amt Medium (34-66%) -Granulation Quality [place] -Slough/Fibrin Yes -Necrosis Amt Medium (34-66%) -Necrotic Tissue Type Eschar -Structure Exposed N/A -Texture (Anitra-wound Skin Appearance) Assessed -Moisture (Anitra-wound Skin Appearance Assessed ) Weeping -Color (Anitra-wound Skin Appearance) Assessed -Temperature (Anitra-wound Skin No Abnormality Appearance) (Pt Warm) -Tenderness on Palpation (Anitra-wound No Skin Appearance) -Ulcer Cleansing Wound Cleanser -Foul Odor after Cleansing No -Anesthetic Used 4% Lidocaine Solution [Edema Assessment] -Lower Limb Edema Present Yes -Right Calf (cm) 36.5 -Right Ankle (cm) 23.5 -Left Calf (cm) 38 -Left Ankle (cm) 24.4 WC - Nurse 2 - General Ulcer CM Notes Start: 12/19/18 10:47 Freq: Status: Active Protocol: Activity Type Activity Date Activity User E-Sign Co-Sign Detail Recorded Client Recorded Date Recorded By Document 12/19/18 11:31 AN [id number] 12/19/18 11:43 AN 12/19/18 11:31 Wound Center Nurse 2 [Procedure/Treatment] 3. L lateral LE -Time 11:40 -Correct Patient Yes -Correct Side, Site, Position Yes -Correct Procedure Yes -Procedure Performed No -Post Debridement Size (cm) - Length 1 -Post Debridement Size (cm) - Width 0.5 -Post Debridement Size (cm) - Depth 0.1 -Total Square Cm 0.5 -Wound/Ulcer Outcome Not Healed -Ulcer Cleansing Rinsed/ Irrigated with Saline -Foul Odor after Cleansing No 2. R posterior LE -Time 11:41 -Correct Patient Yes -Correct Side, Site, Position Yes -Correct Procedure Yes -Procedure Performed No -Post Debridement Size (cm) - Length 3.1 -Post Debridement Size (cm) - Width 5 -Post Debridement Size (cm) - Depth 0.1 -Total Square Cm 15.5 -Wound/Ulcer Outcome Not Healed -Ulcer Cleansing Rinsed/ Irrigated with Saline 1. R lateral LE -Time 11:41 -Correct Patient Yes -Correct Side, Site, Position Yes -Correct Procedure Yes -Procedure Performed No -Post Debridement Size (cm) - Length 13.4 -Post Debridement Size (cm) - Width 5.9 -Post Debridement Size (cm) - Depth 0.3 -Total Square Cm 79.06 -Wound/Ulcer Outcome Not Healed -Ulcer Cleansing Rinsed/ Irrigated with Saline [See Physician Procedure note for Specifics] Pain Scale: 0-10 Numeric [Pain] -Is Patient Pain Free? Yes Debridement Note Post-Debridement Measurements/Treatment DEBORA - Nurse 2 - General Ulcer CM Notes Start: 12/19/18 10:47 Freq: Status: Active Protocol: Activity Type Activity Date Activity User E-Sign Co-Sign Detail Recorded Client Recorded Date Recorded By Document 12/19/18 11:31 AN [id number] 12/19/18 11:43 AN 12/19/18 11:31 Wound Center Nurse 2 3. L lateral LE -Time 11:40 -Correct Patient Yes -Correct Side, Site, Position Yes -Correct Procedure Yes -Procedure Performed No -Post Debridement Size (cm) - Length 1 -Post Debridement Size (cm) - Width 0.5 -Post Debridement Size (cm) - Depth 0.1 -Total Square Cm 0.5 -Wound/Ulcer Outcome Not Healed -Ulcer Cleansing Rinsed/ Irrigated with Saline -Foul Odor after Cleansing No 2. R posterior LE -Time 11:41 -Correct Patient Yes -Correct Side, Site, Position Yes -Correct Procedure Yes -Procedure Performed No -Post Debridement Size (cm) - Length 3.1 -Post Debridement Size (cm) - Width 5 -Post Debridement Size (cm) - Depth 0.1 -Total Square Cm 15.5 -Wound/Ulcer Outcome Not Healed -Ulcer Cleansing Rinsed/ Irrigated with Saline 1. R lateral LE -Time 11:41 -Correct Patient Yes -Correct Side, Site, Position Yes -Correct Procedure Yes -Procedure Performed No -Post Debridement Size (cm) - Length 13.4 -Post Debridement Size (cm) - Width 5.9 -Post Debridement Size (cm) - Depth 0.3 -Total Square Cm 79.06 -Wound/Ulcer Outcome Not Healed -Ulcer Cleansing Rinsed/ Irrigated with Saline Pain Scale: 0-10 Numeric Is Patient Pain Free? Yes Wound debrided: #1 Right lateral leg. Laterality: Right Wound Grade/Stage: 2. No debridement was completed today - patient had recent surgery 12/07/18. - Additional Wound Wound debrided: #3 Left lateral leg. Laterality: Left Wound Grade/Stage: unstageable. Patient tolerated procedure: - - no debridement was done today as it shows bruising and skin compromise at this time. Anticipate progression secondary to her ESRD and debridement will be needed at future visits. Assessment/Plan Assessment: 1. Open infected surgical wound right lateral leg. 2. ESRD on dialysis. 3. Diabetes mellitus. 4. CAD. 5. Recent TX with placement of a stent. 6. 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 7. Bruised area left lateral leg with skin compromise. Plan: With the surrounding bruising of the right lateral leg wound, will change the Silver to Santyl to help with enzymatic debridement. For the left lateral leg bruising and compromised skin, will apply Collagen Hydrogel to the area. Depending on healing, if there is progression, may need Santyl there as well. Will add a Tubigrip for compression to help with swelling. Operative culture showed MRSE. She was on Cleocin and will continue them. Prealbumin from 12/06/18 was 10.2. Encourage nutritional supplementation with protein to help the healing process. Followup 2 weeks.
== END 2019-01-01 23:59 ==
LOC: WC 10:15
PROVIDERS: Family Provider Family Medicine; PCP Family Medicine; Visit Provider Surgery
DX: T81.49XA Infection following a procedure, other surgical site, initial encounter (principal); Y84.8 Other medical procedures as the cause of abnormal reaction of the patient, or of later complication, without mention of misadventure at the time of the procedure; N18.6 End stage renal disease; Z99.2 Dependence on renal dialysis; I25.10 Atherosclerotic heart disease of native coronary artery without angina pectoris; E11.22 Type 2 diabetes mellitus with diabetic chronic kidney disease; I25.2 Old myocardial infarction
CPT/HCPCS: 99214; G0463

== ENCOUNTER 2019-01-02 10:09 | Outpatient (RCR) | payer MEDICARE, SELFPAY ==
[2019-01-02 01:39] VITALS: BP 163/73; PULSE 109; RESP 20; TEMP 35.7
== END 2019-01-31 23:59 ==
LOC: WC 10:09
PROVIDERS: Family Provider Family Medicine; PCP Family Medicine; Visit Provider Surgery
DX: Z09 Encounter for follow-up examination after completed treatment for conditions other than malignant neoplasm (principal)